=== PATIENT | male | born 1945 | race Caucasian/White ===

== ENCOUNTER 2018-08-13 09:34 | Outpatient (CLI) | payer OTHER, SELFPAY ==
--- NOTE | 2018-08-12 14:35 | DI.RAD_ITS ---
SYMPTOMS/DIAGNOSIS: COUGH, R05 CHEST X-RAY, PA AND LATERAL: Comparison is 03/01/18. The heart is normal in size. The lungs are clear. The mediastinal structures and pleura appear intact. IMPRESSION: Normal chest.
== END 2018-08-13 09:54 ==
PROVIDERS: PCP Internal Medicine; Visit Provider Nurse Practitioner
DX: R05 Cough (principal)
CPT/HCPCS: 71046

== ENCOUNTER → 2018-09-30 08:49 | Outpatient (BNVA) | payer OTHER, SELFPAY | PROVIDERS: PCP Internal Medicine; Visit Provider Orthopaedic Surgery | DX: M17.0 Bilateral primary osteoarthritis of knee (principal); I87.2 Venous insufficiency (chronic) (peripheral) | CPT/HCPCS: 20610; 99211; 99213; J1040 ==

== ENCOUNTER → 2019-01-06 08:45 | Outpatient (BNVA) | payer OTHER, SELFPAY | PROVIDERS: PCP Internal Medicine; Referring Provider Internal Medicine; Visit Provider Orthopaedic Surgery | DX: M17.11 Unilateral primary osteoarthritis, right knee (principal); M17.12 Unilateral primary osteoarthritis, left knee | CPT/HCPCS: 20610; 99211; 99213; J1040 ==

== ENCOUNTER 2019-01-25 09:25 | Outpatient (REF) | payer OTHER, SELFPAY ==
[2019-01-25 12:52] LABS: Albumin 4.1 g/dL (3.4-5.0); Alkaline Phosphatase 142 U/L (46-116); Anion Gap 8.9 mmol/L (3-11); BUN 39 mg/dL (7-18); Bilirubin, Total 0.5 mg/dL (0.2-1.0); CO2 29.1 mmol/L (21.0-32.0); CREATININE 1.57 mg/dL (0.70-1.30); Calcium 9.4 mg/dL (8.5-10.1); Chloride 101 mmol/L (98-107); Estimated GFR 43.17 (mL/min/1.73m2); Potassium 4.7 mmol/L (3.5-5.1); Sodium 139 mmol/L (136-145); Total Protein 7.1 g/dL (6.4-8.2)
[2019-01-25 13:08] LABS: ALT 62 U/L (12-78); AST 54 U/L (15-37)
[2019-01-25 13:09] LABS: Glucose 144 mg/dL (70-100)
== END 2019-01-25 09:45 ==
LOC: NCHCN 09:25
PROVIDERS: PCP Internal Medicine; Visit Provider Internal Medicine
DX: E11.65 Type 2 diabetes mellitus with hyperglycemia (principal); I10 Essential (primary) hypertension; N18.3 Chronic kidney disease, stage 3 (moderate); I25.10 Atherosclerotic heart disease of native coronary artery without angina pectoris
CPT/HCPCS: 80053

== ENCOUNTER → 2019-04-12 08:41 | Outpatient (BNVA) | payer OTHER, SELFPAY | PROVIDERS: PCP Internal Medicine; Referring Provider Internal Medicine; Visit Provider Orthopaedic Surgery | DX: M17.11 Unilateral primary osteoarthritis, right knee (principal); M17.12 Unilateral primary osteoarthritis, left knee; M25.561 Pain in right knee; M25.562 Pain in left knee; M21.162 Varus deformity, not elsewhere classified, left knee; M21.161 Varus deformity, not elsewhere classified, right knee; I87.2 Venous insufficiency (chronic) (peripheral); E11.9 Type 2 diabetes mellitus without complications | CPT/HCPCS: 20610; 99211; 99212; J1040 ==

== ENCOUNTER → 2019-07-14 09:49 | Outpatient (BNVA) | payer OTHER, SELFPAY | PROVIDERS: PCP Internal Medicine; Referring Provider Internal Medicine; Visit Provider Orthopaedic Surgery | DX: M17.11 Unilateral primary osteoarthritis, right knee (principal); M17.12 Unilateral primary osteoarthritis, left knee; E11.9 Type 2 diabetes mellitus without complications; Z79.4 Long term (current) use of insulin; Z99.89 Dependence on other enabling machines and devices | CPT/HCPCS: 20610; 99211; 99213; J1040 ==

== ENCOUNTER → 2019-09-01 08:58 | Outpatient (REF) | payer OTHER, SELFPAY ==
[2019-09-01 11:03] LABS: HCT 44.1 % (40.0-50.0); HGB 14.8 g/dL (13.5-17.5); Mean Corp. HGB Concentration 33.6 g/dL (32.0-36.0); Mean Corpuscular Hemoglobin 29.8 pg (27.0-33.0); Mean Corpuscular Volume 88.7 fL (80-95); Platelet Count 126 x1000/uL (130-400); RBC 4.97 m/cumm (4.50-6.00); RBC Distribution Width 15.1 % (11.8-14.1); White Blood Cell Count 4.95 k/cumm (4.4-10.8)
[2019-09-01 11:21] LABS: NT-proBNP 112 pg/mL
[2019-09-02 11:44] LABS: Lyme Ab w Rflx to Lyme Confirm Positive
[2019-09-07 15:26] LABS: IgG Band(s) SEE COMMENTS kDa; IgG Immunoblot Negative; IgM Band(s) SEE COMMENTS kDa; IgM Immunoblot Negative; Immunoblot Interpretation SEE COMMENTS
== END ==
LOC: NCHCN 08:58
PROVIDERS: PCP Internal Medicine; Visit Provider Internal Medicine
DX: R06.09 Other forms of dyspnea (principal); M25.50 Pain in unspecified joint
CPT/HCPCS: 85027; 86617; 83880; 86618

== ENCOUNTER 2019-10-13 10:40 | Outpatient (CLI) | payer OTHER, SELFPAY ==
--- NOTE | 2019-10-13 10:13 | DI.RAD_ITS ---
EXAM: XR KNEE RT 2V AP,LAT, XR KNEE LT 2V AP, LAT, XR STANDING ALIGNMENT INDICATION: knee pain. COMPARISON: XR KNEE LT 2V AP,LAT from 10/13/2019 XR STANDING ALIGNMENT from 10/13/2019 TECHNIQUE: 2D digital imaging was performed. FINDINGS: The hip joint spaces are well maintained. There are severe degenerative changes of both medial femo ral tibial joints, greater on the left. There is bilateral varus angulation at the knees. There are mild degenerative changes of both ankles. Spurring is also seen at the patellofemoral joints. IMPRESSION: Severe degenerative changes of the medial femoral tibial joints of both knees, left greater than righ t.
== END 2019-10-13 11:00 ==
PROVIDERS: PCP Internal Medicine; Referring Provider Internal Medicine; Visit Provider Student in an Organized Health Care Education/Training Program
DX: M25.561 Pain in right knee (principal); M25.562 Pain in left knee; M17.0 Bilateral primary osteoarthritis of knee; M19.071 Primary osteoarthritis, right ankle and foot; M19.072 Primary osteoarthritis, left ankle and foot; E11.9 Type 2 diabetes mellitus without complications; Z79.4 Long term (current) use of insulin; G47.33 Obstructive sleep apnea (adult) (pediatric)
CPT/HCPCS: 99214; 73560; 77073

== ENCOUNTER 2019-11-21 12:08 | Outpatient (REF) | payer OTHER, SELFPAY ==
[2019-11-21 22:02] LABS: Anion Gap 11.2 mmol/L (3-11); BUN 32 mg/dL (7-18); CO2 26.8 mmol/L (21.0-32.0); CREATININE 1.23 mg/dL (0.70-1.30); Calcium 9.1 mg/dL (8.5-10.1); Chloride 102 mmol/L (98-107); Estimated GFR 57.21 (mL/min/1.73m2); Glucose 184 mg/dL (74-106); Potassium 4.2 mmol/L (3.5-5.1); Sodium 140 mmol/L (136-145)
[2019-11-22 09:32] LABS: Hemoglobin A1C 6.6 % (3.8-5.6)
== END 2019-11-21 12:28 ==
LOC: NCHCN 12:08
PROVIDERS: PCP Internal Medicine; Visit Provider Internal Medicine
DX: E11.9 Type 2 diabetes mellitus without complications (principal); I10 Essential (primary) hypertension; I25.10 Atherosclerotic heart disease of native coronary artery without angina pectoris; I87.2 Venous insufficiency (chronic) (peripheral); G47.30 Sleep apnea, unspecified; M17.0 Bilateral primary osteoarthritis of knee
CPT/HCPCS: 80048; 83036

== ENCOUNTER 2019-11-29 00:38 | Outpatient (CLI) | payer OTHER, SELFPAY ==
--- NOTE | 2019-11-29 10:17 | DI.NM_ITS ---
APPROVED REPORT Exam: Pharmacologic Patient Location: Out-Patient Room/Bed: Stress Nurse: Shayna Keith RN BMI: 41.93 Baseline Rhythm: Sinus rhythm. 1st degree AV block Indications: CAD. Cardiac stent x2 in 2013. Pre-op screening for planned left knee surgury with Dr. Cesia michelle on 12/14/19 Medical History Medical History: CAD s/p stent, Diabetes, HTN, Hyperlipidemia, Obesity Cardiac Medications: Aspirin, Losartan, Nitroglycerin Allergies: Amlodipine. Enalaprilate. Pravastatin. 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 Nuclear Acquisition: Rest Tc-99m/Stress Tc-99m 1 day Rest Isotope: Tc-99m Sestamibi. Dose: 15.2 Date: 11/29/2019 Injection Time: 0900 Stress Isotope: Tc-99m Sestamibi. Dose: 47.0 Date: 11/29/2019 Injection Time: 1025 HR Max Heart Rate (APMHR): 144 bpm Resting HR Supine: 70 bpm Target HR (85% APMHR): 122 bpm Max HR Achieved: 82 bpm % of APMHR: 56 Recovery HR: 81 bpm HR response to stress: Normal HR response to stress BP Resting BP Supine: 162/80 mmHg Max BP: 162/80 mmHg Recovery BP: 160/78 mmHg BP response to stress: Normal blood pressure response to stress. ECG Resting ECst degree AV block Stress ECst degree AV block ST Change: No siginificant ST segment changes Recovery ECst degree AV block Recovery ST Change: No significant ST segment changes Clinical Start time of Regadenoson test (time of injection): 1024 Stress Symptoms: No significant side effect from lexiscan injection Stress ECG Conclusion 1. There was no evidence of ischemia on this ECG portion of this exam. Protocol Used: Regadenoson Stress Test Summary STAGE HR BP Symptoms NOTES Supine 70 162/80 1 min post lexiscan injection 82 140/70 3 min post lexiscan injection 77 142/72 6 min post lexiscan injection 81 160/78 MPI Conclusion Ejection fraction with stress was 52%. There is no significant ischemia on the imaging portion of this exam. Radiologist Interpretation Radiologist agrees with Core Baker's Interpretation. Radiologist Interpretation by: Shaheed Ruiz MD Interpretation Date/Time: 12/01/2019 09:29:26
[2019-11-29] MEDS: Regadenoson 0.4 MG/5 ML SYR IVP (11:00)
== END 2019-11-29 00:58 ==
PROVIDERS: PCP Internal Medicine; Visit Provider Internal Medicine
DX: I25.10 Atherosclerotic heart disease of native coronary artery without angina pectoris (principal); Z95.5 Presence of coronary angioplasty implant and graft; I10 Essential (primary) hypertension; E11.9 Type 2 diabetes mellitus without complications; E78.5 Hyperlipidemia, unspecified; Z01.810 Encounter for preprocedural cardiovascular examination; Z87.891 Personal history of nicotine dependence; M25.562 Pain in left knee
CPT/HCPCS: 78452; 93016; 93018; 93017; J2785

== ENCOUNTER 2019-12-07 12:52 | Outpatient (CLI) | payer OTHER, SELFPAY ==
[2019-12-07 15:19] LABS: HCT 47.5 % (40.0-50.0); Mean Corp. HGB Concentration 33.7 g/dL (32.0-36.0); Mean Corpuscular Volume 86.2 fL (80-95); Platelet Count 139 x1000/uL (130-400); RBC 5.51 m/cumm (4.50-6.00); RBC Distribution Width 14.6 % (11.8-14.1); White Blood Cell Count 5.76 k/cumm (4.4-10.8)
[2019-12-07 15:39] LABS: Anion Gap 9.9 mmol/L (3-11); BUN 29 mg/dL (7-18); CO2 30.1 mmol/L (21.0-32.0); CREATININE 1.32 mg/dL (0.70-1.30); Calcium 9.4 mg/dL (8.5-10.1); Chloride 101 mmol/L (98-107); Estimated GFR 52.73 (mL/min/1.73m2); Glucose 138 mg/dL (74-106); Sodium 141 mmol/L (136-145)
== END 2019-12-07 13:12 ==
PROVIDERS: PCP Internal Medicine; Visit Provider Student in an Organized Health Care Education/Training Program
DX: M25.562 Pain in left knee (principal); M17.12 Unilateral primary osteoarthritis, left knee; Z01.818 Encounter for other preprocedural examination; Z01.812 Encounter for preprocedural laboratory examination
CPT/HCPCS: 36415; 80048; 85027

== ENCOUNTER → 2019-12-14 08:08 | Outpatient (BNVA) | payer OTHER, SELFPAY | PROVIDERS: PCP Internal Medicine; Referring Provider Internal Medicine; Visit Provider Student in an Organized Health Care Education/Training Program | DX: R69 Illness, unspecified (principal) ==

== ENCOUNTER 2019-12-14 10:17 | Inpatient (IN) | payer OTHER, SELFPAY ==
--- NOTE | 2019-12-07 19:42 | CMPROGNOTE_ITS ---
- If Service Date Differs Date of service: 12/07/19 Time of Service: 19:42 Care Management Progress Note CM was consulted to meet with Kurtis during his pre op appointment for his Left Knee Replacement scheduled with Dr. Wilson on 12/14/2019. His , Jessica was in the room with him, who was identified as his main support. He reported that they have an adult child and two adult grandchildren who are also supportive. 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 He stated that they live in a two story home in [place], but everything is on one story that they need. There is a ramp in place to get into the home as well. Kurtis reported that he will have use of a FWW post surgically. CM advised that Jessica bring in the FWW to be evaluated by PT prior to Kurtis's discharge. Kurtis is independent at baseline. His will transport him to and from the hospital via private vehicle. Kurtis's PCP is Dr. Camejo, and he has [facility] for insurance. He does not currently have services, but may be interested in MOW from the [facility] for a short time after his surgery. Kurtis has his AD on file, and Jessica is listed as his agent. He was interested in signing up for the Portal. CM sent initial email to enroll him. Kurtis asked what he should bring to wear after surgery, which CM advised that he bring lose fitting clothing, such as sweatpants. CM will continue to follow and support discharge planning with Kurtis post surgically.
[2019-12-14] VITALS (11 sets, daily range): BP systolic 143–169; BP diastolic 63–85; PULSE 56–71; RESP 12–20; TEMP 36.2–36.8; O2SAT 96–100
--- NOTE | 2019-12-14 10:47 | HOME_ITS ---
Home Ventilator Equipment Home care company [employer] Reason: Obstructive Sleep Apnea Make: Respironics Model: REMStar Mask type: Face mask Mask size: Medium Mode: CPAP Settings: 15 Oxygen bleed in (lpm): 0 Condition: Fair Date last checked: 12/14/19 Year of last sleep study: Compliance Daily Comments: Mask should be replaced
[2019-12-14] MEDS: Lactated Ringers 1,000 ML 80 ML IV ×2 (11:07→16:13)
[2019-12-14] MEDS: Celecoxib 200 MG CAP 400 MG PO (11:09)
[2019-12-14] MEDS: Acetaminophen 500 MG TAB 1000 MG PO ×2 (11:09→19:57)
[2019-12-14] MEDS: Gabapentin 300 MG CAP PO ×2 (11:10→19:58)
[2019-12-14] MEDS: Bupivacaine 0.25% Pres-Free 30 ML VIAL ×2 (12:08→14:28)
--- NOTE | 2019-12-14 12:31 | W.PREOPHP ---
Date of service: 12/14/19 Time of Service: 11:31 Assessment and Plan Assessment and plan (1) Primary osteoarthritis of both knees: Status: Chronic Assessment and plan: Kurtis has severe osteoarthritis of both knees. I have discussed the treatments with Kutris and he desires to have knee replacements. He has been cleared by Dr. Camejo. I reviewed the risks to include bleeding, infection, pain, stiffness, laxity, damage to nerves and vessels, damage to muscles and tendons, loosening, need for repeat surgery, blood clot and cardiopulmonary demise. After discussing these risks, he elects to proceed. History of Present Illness History of Present Illness Chief Complaint: Bilateral Knee Pain Narrative: Kurtis is a 74yo with bilateral knee arthritis. He reports pain in both knees. His health has been stable but continues to be limited by bilateral knee pain. He has seen Dr. Camejo and has been cleared for surgery. Recent stress test showed an EF of 50% with no signs of ischemia. Review of Systems All systems reviewed & are unremarkable except as noted in HPI and below PFSH Medical History Arthritis (Acute) CAD (coronary artery disease) (Chronic) Cellulitis (Acute) RIGHT LOWER LEG Diabetes (Chronic) History of seizures as a child (Acute) Hx of myocardial infarction (Acute) 10/2011 STRESS TEST COMPLETED 11/29/2019 Hyperlipidemia (Acute) Hypertension (Chronic) Renal insufficiency (Chronic) Surgical History colonoscopy (09/02/16) H/O heart artery stent (Chronic) X2 2014 History of tonsillectomy and adenoidectomy (Acute) Family History Maternal Aunt Colon cancer Maternal Aunt Colon cancer Social History Smoking/Tobacco Use Status: Former Tobacco Use Alcohol Intake: never Drug use: Never Substance use type: does not use Do you feel safe in your relationship?: Yes Additional Social history: SPOUSE IN ROOM Meds Home Medications and Allergies Home Medications Medication Instructions Recorded Confirmed Type losartan [Cozaar] 100 mg PO DAILY 11/01/13 12/14/19 History nitroglycerin [Nitrostat] 0.4 mg SUBLINGUAL Q5 MIN PRN X3 11/01/13 12/07/19 Rx PRN #15 tab aspirin [Aspir-81] 1 tab PO DAILY 06/11/14 12/14/19 History carvedilol 25 mg PO BID tab-cap 12/18/14 12/14/19 History gabapentin 300 mg PO BID tab-cap 12/18/14 12/14/19 History hydrochlorothiazide 50 mg PO DAILY tab-cap 12/18/14 12/14/19 History magnesium oxide 400 mg PO BID 12/18/14 12/14/19 History Lantus Solostar U-100 Insulin 80 units SUB-Q HS 09/01/16 12/14/19 History insulin lispro [Humalog KwikPen unit SQ .SLIDING SCALE 09/01/16 10/13/19 History Insulin] acetaminophen [Mapap Extra 1,500 mg PO PRN PRN 09/02/16 12/14/19 History Strength] Jardiance 25 mg PO DAILY 05/22/18 12/14/19 History doxazosin 4 mg PO HS 12/07/19 12/14/19 History Allergies Allergy/AdvReac Type Severity Reaction Status Date / Time amlodipine besylate AdvReac Mild edema Unverified 12/14/19 10:57 [From Norvasc] enalapril maleate AdvReac Mild cough Unverified 12/14/19 10:57 [From Vasotec] enalaprilat dihydrate AdvReac Mild cough Unverified 12/14/19 10:57 [From Vasotec] pravastatin sodium AdvReac Mild myalgia Unverified 12/14/19 10:57 [From Pravachol] rosuvastatin [From Crestor] AdvReac Mild Other (See Unverified 12/14/19 10:57 Comment) Exam Const General: cooperative, healthy appearing, comfortable and no acute distress Nutritional Appearance: obese Orientation: alert, awake and oriented x3 Results Last Vital Signs Temp 36.2 C L 12/14/19 10:57 Pulse 71 12/14/19 10:57 Resp 16 12/14/19 10:57 BP 158/85 H 12/14/19 10:57 Pulse Ox 98 12/14/19 10:57
[2019-12-14] MEDS: ceFAZolin 3,000 MG in Normal Saline 100 ML 200 MG IVPB (12:36)
[2019-12-14] MEDS: Bupivacaine LIPOSOME/PF 133 MG/10 ML VIAL IJ (14:28)
[2019-12-14] MEDS: Ketorolac 30 MG/ML VIAL (14:28)
[2019-12-14] MEDS: Normal Saline 20 ML VIAL ×2 (14:28→18:35)
[2019-12-14] MEDS: oxyCODONE 5 MG TAB PO (18:32)
[2019-12-14] MEDS: Magnesium Oxide 400 MG TAB PO (19:57)
[2019-12-14] MEDS: Carvedilol 12.5 MG TAB 25 MG PO (19:58)
[2019-12-14] MEDS: Aspirin E.C. 81 MG TABEC PO (19:58)
[2019-12-14] MEDS: ceFAZolin 1 GM/50 ML BAG IVPB (19:58)
[2019-12-14] MEDS: Naproxen 375 MG TAB PO (20:58)
--- NOTE | 2019-12-14 21:01 | ROE_ITS ---
Date of service: 12/14/19 Time of Service: 16:02 Operative Note Operative Note DATE OF PROCEDURE: 12/14/19 PRE-OP DIAGNOSIS: Left Knee Arthritis POST-OP DIAGNOSIS: same PROCEDURE: Left Total Knee Arthroplasty with Intraoperative Navigation SURGEON: Yrn Wilson TAKE DOWN INSPECTOR: Gela Choi ANESTHESIA: GETA and regional ESTIMATED BLOOD LOSS: 500 PATHOLOGY: none sent TOURNIQUET TIME: 35 COMPLICATIONS: None Patient was transported to: PACU Patient's condition: stable Implants: 1. Depuy Attune Posterior Stabilized Femoral Component, Size 7 2. Depuy Attune Fixed Platform Tibial Component, Size 7 3. Depuy Attune 7x7 Fixed, Stabilized Poly 4. Depuy Attune Patellar Component, Size 38mm Indications: I have seen Kurtis in clinic for symptoms of knee arthritis, confirmed with radiographic findings. Kurtis has exhausted nonoperative methods and was having significant limitations in daily function and desired better function and less pain. I discussed the technical details of a knee replacement. I explained the risks of the procedure to include, but not limited to, bleeding, infection, pain, stiffness, fracture, damage to nerves and vessels, damage to muscles and tendons, loosening, need for repeat procedure, blood clot and cardiopulmonary demise. Despite these risks, Kurtis elected to proceed. Findings: There was significant signs of arthritis throughout the knee involving all 3 compartments. Procedure Description: Kurtis was greeted in the preoperative holding area where the correct side was identified and marked. The consent was reviewed with the patient and signed. The history and physical was updated. All questions were answered. Preoperative mediacations were administered: Acetaminophen 1000mg, Celebrex 400mg, and Gabapentin 300mg. An adductor canal block was then administered by the anesthesia team in the PACU. Kurtis was taken back to the operating room. A spinal anesthestic was then attempted but was unsuccessful, therefore he was transitioned to a general anesthetic. The patient was placed into the supine position on the operating room table. A nonsterile tourniquet was placed high onto the leg but only used for cementing. Posts were placed for positioning during the procedure. All bony prominences were well padded. Prophylactic antibiotics in the form of Cefazolin were administered. 1g of Tranxemic Acid was given intravenously within 30 minutes of incision. The left leg was then prepped with Chloraprep and draped in a standard fashion with impervious stockinette and extremity drape with Iodine impregnated skin protection. A timeout to confirm correct identity, side and site, procedure, allergies, anesthesia, and medical concerns was performed. With the knee in some flexion, a midline incision was made overlying the knee. Full thickness skin flaps were raised once the extensor mechanism was encountered. These were raised medially and laterally. Any bleeding was controlled with electrocautery. Once the extensor mechanism was fully exposed, a medial parapatellar arthrotomy was performed in a flexed position. All bleeding from the arthrotomy and the geniculate arteries was coagulated. A medial subperiosteal peel was performed with electrocautery to the midcoronal plane. Due to the significant varus deformity the entire medial tibial plateau was exposed. The fat pad was removed while keeping the patellar tendon protected. The anterior distal femur synovium was removed for later visualization. The ACL and PCL were resected and the anterior horn of the lateral meniscus was transected. The knee was then flexed with the patella everted. Large osteophytes from the tibia were removed. Large osteophytes from the femur were removed. A single starting pin was then placed 1cm anterior to the PCL insertion and the notch in the direction of the femoral head. The OrthoAlign device was applied over the pin. It was oriented to be in line with the epicondylar axis and the trochlear groove. It was then pinned into place. The navigation computer was then turned on and calibrated. The distal femur cut was set at 0 degrees varus/valgus and 2.5 degrees flexion. The distal femur cutting guide then was positioned for a 11mm cut. The distal femur was cut with an oscillating saw while protecting the soft tissues. The tibia was then addressed. The OrthoAlign device was placed over the tibial tubercle and medial tibia and secured into position. Once again, OrthoAlign was calibrated and then set for a 0 degree varus/valgus cut and 3 degrees of posterior slope. With this locked into position, the cut thickness stylus was used to assess cut thickness. The medial side, most involved side, was set for a 4mm cut. This was then held in position and pinned into place with 2 additional pins and a cross pin for stability. The medial and lateral collateral ligaments were protected and the cut was performed. With this completed, it was assessed and noted to be of appropriate dimensions. The guide and OrthoAlign was removed. A spacer block was inserted and the knee was brought into extension. The 7mm spacer block provided full extension, without hyperextension and with stability of both the medial and lateral collateral ligaments was assessed. The pins from the femur and the tibia were then removed. The distal femur was then sized. The anterior stylus was placed onto the lateral ridge of the anterior femur. This indicated a size 7 femur. The external rotation of the guide was adjusted to 3 degrees to match the epicondylar axis, perpendicular to Tipton?s line. The 4-in-1 cutting guide was the placed. The posterior medial femur cut was evaluated and appeared of good thickness. The spacer block was inserted underneath the cutting guide and stability was confirmed in 90 degrees of flexion. An rocio wing was used to confirm appropriate position of the anterior cut to avoid notching. This cutting guide was ensured to be flush on the cut surface and then pinned into place with headed pins. While protecting the soft tissues, quad tendon, and collateral ligaments, the anterior and posterior cuts were performed with a saw. The central two pins were removed and the posterior and anterior chamfers were cut next. The notch-cutting guide was placed. This was pinned to lateralize the femoral component as much as possible while keeping it flush on the cut surface. This was then pinned into position. A reciprocating saw was used to make the notch cut. A rasp smoothed the cut surfaces. A trial posterior stabilized femoral component was then inserted, impacted down to the cut surfaces, and the lug holes were drilled. A provisional trial tibial component was placed and the knee was brought through range of motion. There was noted to be excellent extension and flexion. There was no significant instability. The patella was tracking without thumbs. The tibial cut surface was fully exposed. The medial and lateral menisci were removed. The tibia was then sized as a 7. The tibia had been previously marked during trialing to correspond to the center of the tibial component to help with rotation. The trial was aligned to this ruddy, approximately rotated to the medial 1/3rd of the tibial tubercle. The trial was pinned into place. The tibia was prepared with a reamer and a keel punch. The knee was then brought into extension and the patella was measured as 25mm. Using the patellar clamp and cut guide, this was resected to a flat surface with at least 13mm of thickness remaining. The size 38 patella fit the best. This was oriented and then clamped into position. The lugs were drilled. The trial components were removed. The final components, except for the polyethylene were opened on the back table. The periosteal and capsular tissues, especially posteriorly, around the knee were then systematically injected with a periarticular cocktail consisting of 50cc 0.25% Marcaine, 30mg Ketorolac, 20cc of Exparal and 50cc of injectable saline. The tourniquet was then inflated to 275mmHg. The knee was thoroughly irrigated with a pulse lavage and dried. On the back table, with the implants opened, the cement was mixed. 2 batches of antibiotic laden cement were prepared with vacuum assistance. After the cement was ready a small amount was placed on to the back side of the tibial component at the keel. A small amount was placed onto the posterior flange of the femur. Cement was manual pressurized and impregnated into the cut surface of the tibia. The tibial component was then inserted into the cut surface and impacted into position. Excess cement was removed and the component was reimpacted. Again, excess cement was removed and our attention was then turned to the femur. The femoral cut surface was once again dried and cement was manually impacted into the cut surface. The femoral component was lined with the lug holes and impacted. Excess cement was removed. It was ensured to be down against the cut surface. The trial polyethylene was then inserted and the leg was brought out into full extension for the duration of the cement curing process, approximately 15min. Cement was lastly manually impacted into the cut surface of the patella and the patellar button was clamped into position and held. During this process attention was turned to the gutters of the knee and for all interfaces for any excess cement. The knee was irrigated with Irrisept chlorhexadine solution. After the cement had finally cured, approximately 15min, the clamp was removed from the patella and the knee was taken through range of motion. A size 7mm polyethylene component provided the best range of motion and stability with less than 2mm gapping with medial and lateral stress and full extension without significant hyperextension. The patella was tracking with a no-thumbs technique. The trial poly was removed and once again the knee was checked for any loose, excess, or errant cement. The poly component was then inserted and impacted into position after cleaning and drying the tibial tray. The capsule was then reapproximated with a No. 1 Vicryl at multiple locations. The capsule was finally closed with a No. 2 Stratafix, barbed suture. The tourniquet was then released and the arthrotomy appeared watertight without significant bleeding. The second dosing of 1g TXA was started. Deep tissues were then reapproximated with 0 Vicryl and 2-0 Vicryl. The skin was closed with a running 3-0 Monocryl in a subcuticular fashion. This was reinforced with skin glue. A Mepilex silver dressing was applied along with a [id number] ED wrap. A CryoCuff was applied. Kurtis was transferred to the hospital bed without difficulty an suffering no apparent complication. Kurtis has a good prognosis. Physical therapy will start today and without restrictions, weight-bearing as tolerated. Aspirin 81mg BID will be used for DVT prophylaxis.
[2019-12-14] MEDS: Insulin Glargine 300 UNITS/3 ML PEN 80 UNITS SC (22:19)
[2019-12-14] MEDS: Doxazosin 2 MG TAB 4 MG PO (22:21)
[2019-12-15] MEDS: oxyCODONE 5 MG TAB PO ×5 (02:57→22:36)
[2019-12-15] MEDS: Lactated Ringers 1,000 ML 80 ML IV (02:58)
[2019-12-15 03:33] VITALS: BP 138/70; PULSE 74; RESP 20; TEMP 36.7; O2SAT 95
[2019-12-15] MEDS: ceFAZolin 1 GM/50 ML BAG IVPB ×2 (03:37→11:50)
[2019-12-15 07:22] VITALS: BP 158/67; PULSE 76; RESP 19; TEMP 36.8; O2SAT 94
[2019-12-15] MEDS: Aspirin E.C. 81 MG TABEC PO ×2 (08:10→20:12)
[2019-12-15] MEDS: Acetaminophen 500 MG TAB 1000 MG PO ×3 (08:10→20:14)
[2019-12-15] MEDS: Naproxen 375 MG TAB PO ×2 (08:10→20:15)
[2019-12-15] MEDS: hydroCHLOROthiazide 25 MG TAB 50 MG PO (08:10)
[2019-12-15] MEDS: Losartan 50 MG TAB 100 MG PO (08:10)
[2019-12-15] MEDS: Magnesium Oxide 400 MG TAB PO ×2 (08:11→20:15)
[2019-12-15] MEDS: Carvedilol 12.5 MG TAB 25 MG PO ×2 (08:11→20:14)
[2019-12-15] MEDS: Gabapentin 300 MG CAP PO ×2 (08:12→20:15)
[2019-12-15] MEDS: Pantoprazole 40 MG TABCR PO (08:12)
[2019-12-15] MEDS: Insulin Aspart 300 UNITS/3 ML PEN SC ×4 (08:13→11:49)
[2019-12-15] MEDS: Normal Saline 1,000 ML 1000 ML IV (08:15)
[2019-12-15 11:28] VITALS: BP 140/54; PULSE 71; RESP 20; TEMP 36.7; O2SAT 94
[2019-12-15] MEDS: Normal Saline Flush 10 ML SYR IV (11:50)
--- NOTE | 2019-12-15 13:14 | PT.INIE ---
Date of service: 12/15/19 Time of Service: 13:14 PT Notes Visit Reasons: (L) KNEE DJD Physical Therapy Inpatient Initial Evaluation Date: 12/15/2019 Referring Doctor: Yrn Wilson M.D. PT Orders: PT CONSULT: s/p ortho surgery Precautions: Fall. Standard. Activity as tolerated. Patient Profile/Admitting Diagnosis: Pt is a 74-year-old male with history of bilateral knee OA presenting s/p L TKA with intraoperative navigation on post-operative day one. PMHX: Medical History Arthritis (Acute) CAD (coronary artery disease) (Chronic) Cellulitis (Acute) RIGHT LOWER LEG Diabetes (Chronic) History of seizures as a child (Acute) Hx of myocardial infarction (Acute) 10/2011 STRESS TEST COMPLETED 11/29/2019 Hyperlipidemia (Acute) Hypertension (Chronic) Renal insufficiency (Chronic) Surgical History colonoscopy (09/02/16) H/O heart artery stent (Chronic) X2 2014 History of tonsillectomy and adenoidectomy (Acute) Social History/Home Situation: Pt lives in [place] with his . Notes there is a ramp to the front door and no stairs in the home. 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 Equipment Owned/DME: Cane and crutches. Subjective: Pt notes that he does not have pain unless bending or extending the knee. He notes that he often experiences back pain with ambulating, but has not experienced any pain since here in the hospital. Objective: General Observation: IV line in R UE, not attached to IV pump. Mental Status: alert and oriented x4 Pain: 3/10 Vital Signs: SpO2 97% on RA with ambulation ROM: Right Upper Extremity: Shoulder Flexion WFL. Shoulder abduction WFL. Elbow flexion WFL. Wrist flexion WFL. Opening and closing of hand WFL. Left Upper Extremity: Shoulder Flexion WFL. Shoulder abduction WFL. Elbow flexion WFL. Wrist flexion WFL. Opening and closing of hand WFL. Right Lower Extremity: Hip flexion WFL. Hip abduction WFL. Knee flexion WFL. Ankle dorsiflexion WFL. Ankle plantarflexion WFL. Left Lower Extremity: Hip flexion WFL. Hip abduction WFL. Knee flexion 95 degrees. Knee extension 25 degrees. Ankle dorsiflexion WFL. Ankle plantarflexion WFL. Strength: Right Upper Extremity: Shoulder flexors 5/5. Shoulder abductors 5/5. Elbow flexors 5/5. Elbow extensors 5/5. Manager Registration strong. Left Upper Extremity: Shoulder flexors 5/5. Shoulder abductors 5/5. Elbow flexors 5/5. Elbow extensors 5/5. Manager Registration strong. Right Lower Extremity: Hip flexors 5/5. Hip abductors 5/5. Knee flexors 5/5. Knee extensors 5/5. Ankle dorsiflexors 4-/5. Ankle plantarflexors 5/5. Left Lower Extremity: Hip flexors 3-/5. Hip abductors 5/5. Knee flexors 3-/5. Knee extensors 3-/5. Ankle dorsiflexors 5/5. Ankle plantarflexors 5/5. Sensation: Intact as to pain and pressure on bilateral lower extremities. Bed Mobility/Transfers: Rolling NT Supine to sit NT Sit to supine NT Sit to stand SBA Stand to sit SBA Bed to chair SBA Chair to bed SBA Gait: Pt was able to ambulate 120 feet WBAT on L LE using a front-wheeled walker. Step through gait pattern with decreased step height and length. Foot flat contact on L LE and forefoot contact on the L LE observed. Pt experienced one LOB without a fall. Denies increases in pain, chest pain, nausea, dizziness, or back pain. SBA by PT with wheelchair follow by PT student. Balance: Static Sitting: Normal Dynamic Sitting: Normal Static Standing: Good Dynamic Standing: Fair Special Tests: Mobility Limitations Standardized Measure [facility] AM-PAC 6 clicks Basic Mobility Inpatient Short Form: Raw Score: 24 CMS Score: 0% deficit Informed Consent/Education: Patient instructed in purpose of PT consult and plan of care. HEP including glute sets, quadriceps sets, and ankle pumps. Assessment: Pt is a 74-year-old male with history of bilateral knee OA presenting s/p TKA intraoperative navigation on post-operative day one. He presents on initial evaluation with impairment level findings and functional deficits listed below. Pt would continue to benefit from skilled physical therapy at this time for improved functional mobility. Patient presents with clinical signs and symptoms consistent with current/admitting diagnoses that have resulted to mobility limitations, gait instability and generalized weakness demonstrated by the following impairment level findings: 1. Decreased strength to LLE hip and knee major muscle groups 2. Impaired standing balance 3. Impaired activity tolerance 4. Limitation of joint range of motion in L knee Impairments are contributing to the following functional limitations: 1. Increased dependence with transfers 2. Inability to safely ambulate without assistive device and physical assistance 3. Increase completion time for mobility ADL performance 4. Increased fall risk 5. Inability to negotiate steps alone safely Patient is assessed as a 71080 moderate complexity based on the following: History: Pt is a 74-year-old male with history of bilateral knee OA presenting s/p TKA intraoperative navigation on post-operative day one. He presents on initial evaluation with impairment level findings and functional deficits listed below Examination: Demonstrable impairment in strength, balance, and range of motion with underlying impairments and functional limitations as documented above Presentation: Evolving Decision Makin moderate complexity Goals: Goals X1 week 1. Sit-Stand independent 2. Stand-Sit independent 3. Bed-Chair independent 4. Chair-Bed independent 5. Independent gait on level surface with use of least restrictive device for at least 300 feet without report of pain nor dyspnea 6. Independent stair negotiation while holding onto bilateral rails for at least 5 steps without report of pain nor dyspnea 7. Independent with home exercise program 8. Good static and dynamic standing balance/tolerance Plan of Care/Treatment Plan: 1-2x/day, 7 days/week x 1 week. Plan of care has been reviewed with the DIRECTOR OF OCCUPATIONAL HEALTH providing the service under Physical Therapy direction. Initiate Physical Therapy intervention for strengthening, bed mobility, transfers, gait, stairs, balance training, use of assistive device. DISCHARGE RECOMMENDATIONS: Pt is to be discharged to home with a front-wheeled walker once medically cleared. TREATMENT CODE/TIME: 68154 x 31 minute beginning at 13:14 P.M. Thank you very much for this referral. Bert Vazquez, CARA Doctor of Physical Therapy Student [facility] Supervision provided by Nargis Bernabe PT, DPT, CLT [facility] [place], [place]
--- NOTE | 2019-12-15 14:33 | CHAPLAIN ---
Kurtis told me about his knee surgery yesterday. He said his profession has been rough on his body and he waited as long as possible to have his knee replaced. He is a member [facility] [employer] and the rastafarian knows he is here. His sister in law is Keyanna Alanis, an [facility] [employer].
--- NOTE | 2019-12-15 14:50 | PDOC.CMIN ---
Care Management Initial Assess REASON FOR HOSPITALIZATION:: (L) Knee DJD PAST MEDICAL HISTORY/PAST SURGICAL HISTORY:: Arthritis, CAD, Cellulitis, Diabetes, hx of seizures in childhood, [place] 2010, hyperlipidemia, hypertension, renal insufficiency, colonoscopy, hx of tonsillectomy and adenoidectomy PREVIOUS FUNCTIONAL STATUS/SOCIAL/FAMILY SUPPORTS:: Kurtis resides in [place] with his , Jessica. Their daughter, Amrita and grandchildren also reside in [place]. 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 He is independent at baseline with supportive family and friends. CURRENT FUNCTIONAL STATUS:: Kurtis was lying in bed. He reported he was having increased pain and requested this specifications writer notify the RN. CM notified RN. Kurtis shared that his daughter had brought his FWW in yesterday, though the walker in the room was labeled from PT. ADVANCE DIRECTIVES:: On file at [facility]; Jessica as agent. Has patient been provided with information about the portal?: Yes Did the patient sign up for the portal?: Yes (Previously) CODE STATUS:: DNR/DNI INSURANCE COVERAGE / FINANCIAL ISSUES:: [facility] CURRENT HOME/COMMUNITY SERVICES/EQUIPMENT:: No current services or equipment. Borrowing a FWW for recovery. PRIMARY CARE PHYSICIAN:: Patrice Camejo POTENTIAL DISCHARGE NEEDS:: PT evaluation, follow up appointments. PATIENT/FAMILY EDUCATION NEEDS:: Review discharge instructions, discuss Ask Me Three. ANTICIPATED BARRIERS TO DISCHARGE:: None identified at this time. TRANSPORTATION:: Via private vehicle with his . PLAN:: Kurtis will return home when ready per MD. He will follow up with Dr. Wilson and his plan of care as prescribed including activity restriction and medication recommendations. He will transport via vehicle with his , Jessica.
[2019-12-15 16:21] VITALS: BP 141/56; PULSE 74; RESP 20; TEMP 37.1; O2SAT 97
[2019-12-15 20:24] VITALS: BP 164/70; PULSE 70; RESP 20; TEMP 37; O2SAT 96
[2019-12-15] MEDS: Insulin Glargine 300 UNITS/3 ML PEN 80 UNITS SC (21:28)
[2019-12-15] MEDS: Doxazosin 2 MG TAB 4 MG PO (21:28)
--- NOTE | 2019-12-15 22:12 | W.PM.PROGNOT ---
Date of Service Date of service: 12/15/19 Time of Service: 13:13 Assessment and Plan Assessment and plan (1) Primary osteoarthritis of both knees: Status: Chronic Assessment and plan: Kurtis is a 74-year-old status post left knee replacement. He is doing well. He has had good pain control. We will continue with physical therapy with likely discharge home tomorrow. Continue aspirin for blood clot prevention. Subjective Subjective Interval history since last seen: Kurtis is doing well status post left knee replacement. He reports good pain control. He has been able to get out of bed and walked some. He does report some stiffness. No fevers or chills. Exam Narrative Exam Narrative: Dressing is clean dry and intact. Active straight leg raise. Sensation intact light touch over the deep and superficial peroneal nerves and tibial nerve. Range of motion approximately 10 to 70 degrees. Objective Objective Clinical Data: Vital Signs Temperature 37.0 C 12/15/19 20:24 Temperature Source Tympanic 12/15/19 20:24 Pulse 70 12/15/19 20:24 Pulse Rhythm Regular 12/15/19 20:16 Respiratory Rate 20 12/15/19 20:24 Respiratory Effort Non-Labored 12/15/19 20:16 Respiratory Depth Normal 12/15/19 20:16 Respiratory Pattern Normal 12/15/19 20:16 Blood Pressure 164/70 H 12/15/19 20:24 Pulse Oximetry 96 12/15/19 20:24 Respiratory End-tidal CO2 30 12/14/19 16:10 Oxygen Delivery Method Room Air 12/15/19 20:24 Oxygen Flow Rate 0 12/15/19 20:24 Fraction of Inspired Oxygen (FIO2) 21 12/15/19 14:53 Pain Level 0 12/15/19 20:24 Intake & Output 12/14/19 12/15/19 12/15/19 23:59 11:59 23:59 Intake Total 1015.333 / 9923.372 5861.667 / 2315.334 642.667 / 2315.334 Output Total 1250 / 1250 1000 / 1500 500 / 1500 Balance -234.667 / -234.667 672.667 / 815.334 142.667 / 815.334 Weight 128.82 kg Intake: IV 1015.333 / 3588.495 8752.667 / 1715.334 402.667 / 1715.334 Oral 360 / 600 240 / 600 Output: Urine 750 / 750 1000 / 1500 500 / 1500 Estimated Blood Loss 500 / 500 Other: Urine Color Yellow Yellow Light Carla Urine Appearance Clear Clear Clear Urine Odor None Normal Comment barraza D/C by previous nurse Emesis Description None Voiding Methods Urinal Urinal
[2019-12-15 23:40] VITALS: BP 165/51; PULSE 73; RESP 18; TEMP 36.7; O2SAT 94
[2019-12-16 04:14] VITALS: BP 162/57; PULSE 72; RESP 16; TEMP 36.8; O2SAT 95
--- NOTE | 2019-12-16 05:55 | W.PM.DS.N ---
Date of service: 12/16/19 Time of Service: 12:12 DS: Diagnosis Discharge Diagnosis (1) Primary osteoarthritis of both knees: Status: Chronic Discharge Plan Disposition Patient Disposition: HOME W/HOME HEALTH SERVICE Condition: Good Discharge Details Reason For Visit: (L) KNEE DJD Admit Date/Time: 12/14/19 10:17 Admit Provider: Yrn Wilson Attending Provider: Yrn Wilson Primary Care Provider: Patrice Camejo Hospital Course Hospital Course: Patient was admitted to the medical/surgical floor following the procedure. It was tolerated well without any notable medical, surgical, or anesthetic complications. Mobilization began postoperatively. The barraza catheter was removed and voiding spontaneously. Vitals were stable. Physical therapy worked with the patient and was cleared for discharge home. No acute medical issues. Home Meds and New Rx's Prescriptions: New naproxen 375 mg Tablet 375 mg PO BID Qty: 60 RF: 3 acetaminophen 500 mg tablet 1,000 mg PO Q8H PRN (Reason: pain) Qty: 90 RF: 3 pantoprazole 40 mg tablet,delayed release (DR/EC) 40 mg PO DAILY Qty: 30 RF: 0 oxycodone 5 mg tablet 5 mg PO Q4H Qty: 15 RF: 0 Continued carvedilol 12.5 MG tablet 25 mg PO BID RF: 0 hydrochlorothiazide 50 MG tablet 50 mg PO DAILY RF: 0 magnesium oxide 400 MG tablet 400 mg PO BID RF: 0 gabapentin 300 MG capsule 300 mg PO BID RF: 0 losartan [Cozaar] 100 MG tablet 100 mg PO DAILY RF: 0 nitroglycerin [Nitrostat] 0.4 MG tablet, sublingual 0.4 mg Sublingual Q5 MIN PRN X3 PRNQty: 15 RF: 0 insulin lispro [Humalog KwikPen Insulin] 100 UNIT/ML insulin pen SQ .SLIDING SCALE RF: 0 Lantus Solostar U-100 Insulin 300 UNITS/3 ML insulin pen 80 units Sub-Q HS RF: 0 Jardiance 10 MG tablet 25 mg PO DAILY RF: 0 doxazosin 4 mg Tablet 4 mg PO HS RF: 0 Changed aspirin [Aspir-81] 81 MG tablet,delayed release (DR/EC) 1 tab PO BID Qty: 60 RF: 0 Discontinued acetaminophen [Mapap Extra Strength] 500 MG tablet 1,500 mg PO PRN PRN (Reason: Pain) RF: 0 Discharge Instructions Additional Instructions: Dr. Wilson?s Total Knee Discharge Instructions Activity: The most important activity is to walk. You should try to take short walks a few times a day. It is important that when resting you work on keeping the knee straight. Avoid putting a pillow behind the knee as this will encourage flexion. Work on range of motion exercises as provided by Physical Therapy. - Start outpatient physical therapy within 2 weeks. - You should wear the VERENICE hose on both legs for 2 weeks. Dressing: Keep the surgical dressing in place for at least one week. After the first week it may be removed and replace with light gauze and tape or nothing. It may get wet after 3 days but avoid soaking the dressing. If it gets wet, just lightly pat dry. Medications: - You should take Tylenol (1000mg three times a day) and anti-inflammatory Naproxen (375mg twice a day) as your primary pain control medications - You have been prescribed a stronger pain medication Oxycodone for breakthrough pain, take as needed as prescribed. - You have also been prescribed a stomach acid reduction agent Pantoprozole to help reduce stomach acid and reflux. - You will be taking Aspirin 81mg twice a day for DVT prevention unless instructed otherwise. - If you have constipation you should take Colace or Miralax (both [id number]). It takes most people 3-4 days to have a bowel movement. Follow-up: 2 weeks 1. Encounter Date and Reason I certify that HILDA ZIMMERMAN was seen by Yrn Wilson MD on 12/16/19 and that I had a [id number] encounter with this patient that meets the physician face to face encounter requirements. 2. Clinical Findings Supporting Skilled Need and Homebound Status I certify that home health services are medically necessary, include either intermittent fpc and/or physical/speech therapy, and that this patient is homebound in that absences from the home require considerable and taxing effort and are infrequent or of short duration, or are attributable to the need to receive medical care. [X] (a) Attached documentation from encounter provides clinical findings supporting skilled need and homebound status (including what assistance patient requires to leave the home). The encounter with the patient was in whole, or in part, for the following medical condition, which is the primary reason for home health care: (L) KNEE DJD [facility]: Physical Therapy: Hilda would benefit from physical therapy following knee replacement. He has limitations in strength, stamina, motion, ambulation. His therapy should focus on ambulatory improvement, ADLs, and range of motion. Speech Therapy: Homebound: Hilda is homeboud due to weakness. He has notable gait alterations and is unable to leave his home unassisted. 3. Certification and Authentication I certify that I composed the above information based on my clinical judgement relating to this patient's medical condition and, if applicable, clinical findings communicated to me by the NPP or inpatient physician who performed the Home Health Referral. All further orders will be obtained through Dr. Wilson. Stand Alone Forms: Nursing Discharge Form Referrals: Sam Rowley P.T [Other] - 12/30/19 2:30 pm Yrn Wilson MD [ [facility] STAFF PHYSICIAN] - 12/29/19 11:15 am Activity:: Activity as Tolerated Equipment/Supplies:: No Equipment Needed Diet:: As Tolerated DS: Summary Status at Discharge Functional status at discharge: uses cane/walker Overall status at discharge: patient is progressing back to baseline Mental Status: mental status grossly normal Speech and Movement: speech and movement normal Mood: congruent mood Affect: normal affect Exam Psych Mental Status: mental status grossly normal Speech and Movement: speech and movement normal Mood: congruent mood Affect: normal affect DS: Data Vitals/I&O Vitals and I&O: Vital Signs Temperature 36.7 C 12/15/19 23:40 Temperature Source Tympanic 12/15/19 23:40 Pulse 73 12/15/19 23:40 Pulse Rhythm Regular 12/16/19 01:19 Respiratory Rate 18 12/15/19 23:40 Respiratory Effort Non-Labored 12/16/19 01:19 Respiratory Depth Normal 12/16/19 01:19 Respiratory Pattern Normal 12/16/19 01:19 Blood Pressure 165/51 H 12/15/19 23:40 Pulse Oximetry 94 L 12/15/19 23:40 Respiratory End-tidal CO2 30 12/14/19 16:10 Oxygen Delivery Method Room Air 12/15/19 23:40 Oxygen Flow Rate 0 12/15/19 23:40 Fraction of Inspired Oxygen (FIO2) 21 12/15/19 14:53 Pain Level 0 12/15/19 23:40 Intake & Output 12/15/19 12/15/19 12/16/19 11:59 23:59 11:59 Intake Total 1672.667 / 2555.334 882.667 / 2555.334 Output Total 1000 / 1500 500 / 1500 Balance 672.667 / 1055.334 382.667 / 1055.334 Intake: IV 1312.667 / 1715.334 402.667 / 1715.334 Oral 360 / 840 480 / 840 Output: Urine 1000 / 1500 500 / 1500 Other: Urine Color Yellow Light Carla Yellow Urine Appearance Clear Clear Clear Urine Odor None Normal Comment barraza D/C by previous nurse Voiding Methods Urinal Urinal Urinal PFSH Medical History Arthritis (Acute) CAD (coronary artery disease) (Chronic) Cellulitis (Acute) RIGHT LOWER LEG Diabetes (Chronic) History of seizures as a child (Acute) Hx of myocardial infarction (Acute) 10/2011 STRESS TEST COMPLETED 11/29/2019 Hyperlipidemia (Acute) Hypertension (Chronic) Renal insufficiency (Chronic) Surgical History colonoscopy (09/02/16) H/O heart artery stent (Chronic) X2 2013 History of tonsillectomy and adenoidectomy (Acute) Family History Maternal Aunt Colon cancer Maternal Aunt Colon cancer Social History Smoking/Tobacco Use Status: Former Tobacco Use Alcohol Intake: never Drug use: Never Substance use type: does not use Do you feel safe in your relationship?: Yes Additional Social history: SPOUSE IN ROOM
[2019-12-16 07:33] VITALS: BP 132/68; PULSE 77; RESP 20; TEMP 36.6; O2SAT 96
[2019-12-16] MEDS: Insulin Aspart 300 UNITS/3 ML PEN SC ×3 (08:28→12:17)
[2019-12-16] MEDS: Magnesium Oxide 400 MG TAB PO (08:58)
[2019-12-16] MEDS: Aspirin E.C. 81 MG TABEC PO (08:58)
[2019-12-16] MEDS: Acetaminophen 500 MG TAB 1000 MG PO ×2 (08:58→14:28)
[2019-12-16] MEDS: Naproxen 375 MG TAB PO (08:58)
[2019-12-16] MEDS: Carvedilol 12.5 MG TAB 25 MG PO (08:59)
[2019-12-16] MEDS: Losartan 50 MG TAB 100 MG PO (08:59)
[2019-12-16] MEDS: hydroCHLOROthiazide 25 MG TAB 50 MG PO (08:59)
[2019-12-16] MEDS: Gabapentin 300 MG CAP PO (08:59)
[2019-12-16] MEDS: Pantoprazole 40 MG TABCR PO (08:59)
[2019-12-16 11:39] VITALS: BP 103/55; PULSE 75; RESP 21; TEMP 36.9; O2SAT 98
--- NOTE | 2019-12-16 12:38 | W.NUTCONSULT ---
Date of service: 12/16/19 Time of Service: 12:38 Nutritional Consult ASSESSMENT: 74 year old male s/p left knee DJD. PMH: NIDDM, obesity. Followed by CDE in outpatient clinic. BMI indicates class 3 obesity. Following CHO diet with excellent intake. Not at nutritional risk at this time. MONITORING AND EVALUATION: po intake, blood sugar and weight trends Time Spent in Nutritional Counseling and Treatment: 0 time spent face to face
--- NOTE | 2019-12-16 13:09 | PT.INTREAT ---
Date of service: 12/16/19 Time of Service: 10:57 PT Notes Visit Reasons: (L) KNEE DJD Inpatient Physical Therapy Treatment Note [facility] Date: 12/16/2019 PRECAUTIONS: Fall. Standard. Activity as tolerated. SUBJECTIVE: Pt reports that his pain in tolerable. He notes that the pain is worse with lying in bed compared to standing or sitting in chair. Reports that he does have stairs to the basement in order to put wood in the fireplace in the basement and notes that he has someone to do that for him while he recovers and is not required to negotiate stairs. OBJECTIVE: IV line in L UE. PAIN: 3 BED MOBILITY/TRANSFERS Sit-stand: SBA with cues to push up from table/chair Stand-sit: SBA with cues to reach back to chair Bed-Chair: SBA Chair-bed: SBA GAIT Assistive Device: FWW Weight bearing: WBAT Assist: SBA by PT and PT student Distance: 60 feet + 60 feet Comments: Decreased step length and height with step through gait pattern THEREX: LAQ LLE x10 Hip flexion in seated R, L x10 Standing Hip Abduction L x10 Standing knee flexion L x10 Seated toe raises B x10 STAIRS: Pt was able to ascend and descend the 6? stairs x1 and 4? stairs x1 with bilateral UE support of railings. Demonstrated increased respiratory rate with stair negotiation and decreased functional strength in his R LE when ascending stairs. CGA by PT and SBA by PT student. ASSESSMENT: Pt demonstrates improved activity tolerance with ambulation as he was able to walk a greater distance without requiring a seated rest break. He tolerated therapeutic exercise without complaints of increased pain. Pt demonstrated significant difficulty with stair negotiation, however, has a ramp to enter the home and assistance with home duties that require the stairs. PLAN: Continue with established POC. Pt is to be discharged home when medically cleared. TREATMENT CODE/TIME: 93803 x1, 64370 x1 beginning at 10:57 A.M. Bert Vazquez, SPT Doctor of Physical Therapy Student [facility] Supervision provided by Nargis Bernabe PT, DPT, CLT [facility] [place], [place] CC:
--- NOTE | 2019-12-16 15:27 | PDOC.CMDIS ---
LACE Index Scoring Tool - Questions: Length of Stay (in days): 2 Acuity (Admit via E.D.?): No Comorbidities: Diabetes w/o Complication E.D. Visits: 0 - Answers: Total Score: 3 Risk of Readmission: Low Risk Care Management Discharge Reason for Hospitalization: (L) Knee DJD Discharge Plan: Kurtis will return home, when medically cleared per MD. He will follow up with Dr. Wilson and his plan of care as prescribed including activity restrictions and medication recommendations. Kurtis will also have new orders for VNA supports through [facility] for Physical therapy. He will transport via vehicle with his , Jessica. Patient/Family Education Needs: Review discharge instructions and discuss Ask Me Three. Services Needed at Discharge: DME Agency (Pt own FWW), Home Health Care Services (PT )
--- NOTE | 2019-12-19 10:20 | INDS_ITS ---
Date of service: 12/19/19 Time of Service: 10:21 PT Notes Visit Reasons: (L) KNEE DJD Inpatient Physical Therapy Discharge Summary Dates: 12/19/2019 Dates of Service: 12/15/2019 to 12/16/2019 This is a clinical summary of care provided on the duration of dates listed above. No charge was made in the completion of this documentation. Referring Doctor: Yrn Wilson M.D. PT Orders: PT CONSULT: s/p ortho surgery Precautions: Fall. Standard. Activity as tolerated. Patient Profile/Admitting Diagnosis: Pt is a 74-year-old male with history of bilateral knee OA presenting s/p L TKA with intraoperative navigation. PMHX: Social History/Home Situation: Pt lives in [place] with his . Notes there is a ramp to the front door and no stairs in the home. 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 Equipment Owned/DME: Cane and crutches. Subjective: NT Objective: General Observation: NT Mental Status: NT Pain: NT ROM: Right Upper Extremity: Shoulder Flexion WFL. Shoulder abduction WFL. Elbow flexion WFL. Wrist flexion WFL. Opening and closing of hand WFL. Left Upper Extremity: Shoulder Flexion WFL. Shoulder abduction WFL. Elbow flexion WFL. Wrist flexion WFL. Opening and closing of hand WFL. Right Lower Extremity: Hip flexion WFL. Hip abduction WFL. Knee flexion WFL. Ankle dorsiflexion WFL. Ankle plantarflexion WFL. Left Lower Extremity: Hip flexion WFL. Hip abduction WFL. Knee flexion 95 degrees. Knee extension 25 degrees. Ankle dorsiflexion WFL. Ankle plantarflexion WFL. Strength: Right Upper Extremity: Shoulder flexors 5/5. Shoulder abductors 5/5. Elbow flexors 5/5. Elbow extensors 5/5. Planning Associate strong. Left Upper Extremity: Shoulder flexors 5/5. Shoulder abductors 5/5. Elbow flexors 5/5. Elbow extensors 5/5. Planning Associate strong. Right Lower Extremity: Hip flexors 5/5. Hip abductors 5/5. Knee flexors 5/5. Knee extensors 5/5. Ankle dorsiflexors 4-/5. Ankle plantarflexors 5/5. Left Lower Extremity: Hip flexors 3-/5. Hip abductors 5/5. Knee flexors 3-/5. Knee extensors 3-/5. Ankle dorsiflexors 5/5. Ankle plantarflexors 5/5. Sensation: Intact as to pain and pressure on bilateral lower extremities. Bed Mobility/Transfers: Sit to stand SBA Stand to sit SBA Bed to chair SBA Chair to bed SBA Gait: Assistive Device: FWW Weight bearing: WBAT Assist: SBA by PT and PT student Distance: 60 feet + 60 feet Comments: Decreased step length and height with step through gait pattern STAIRS: Pt was able to ascend and descend the 6? stairs x1 and 4? stairs x1 with bilateral UE support of railings. Demonstrated increased respiratory rate with stair negotiation and decreased functional strength in his R LE when ascending stairs. CGA by PT and SBA by PT student. Balance: Static Sitting: Normal Dynamic Sitting: Normal Static Standing: Good Dynamic Standing: Fair Assessment: Pt is a 74-year-old male with history of bilateral knee OA that presented s/p TKA intraoperative navigation on post-operative day one for PT initial evaluation. He presented with impairment level findings and functional deficits listed below. Pt would continue to benefit from skilled physical therapy following discharge to home for improved functional mobility. Patient presented with clinical signs and symptoms consistent with current/admitting diagnoses that have resulted to mobility limitations, gait instability and generalized weakness demonstrated by the following impairment level findings: 1. Decreased strength to LLE hip and knee major muscle groups 2. Impaired standing balance 3. Impaired activity tolerance 4. Limitation of joint range of motion in L knee Impairments continue to contribute to the following functional limitations: 1. Increased dependence with transfers 2. Inability to safely ambulate without assistive device and physical assistance 3. Increase completion time for mobility ADL performance 4. Increased fall risk 5. Inability to negotiate steps alone safely Goals: Goals X1 week 1. Sit-Stand independent -NOT MET 2. Stand-Sit independent -NOT MET 3. Bed-Chair independent -NOT MET 4. Chair-Bed independent -NOT MET 5. Independent gait on level surface with use of least restrictive device for at least 300 feet without report of pain nor dyspnea -NOT MET 6. Independent stair negotiation while holding onto bilateral rails for at least 5 steps without report of pain nor dyspnea -NOT MET 7. Independent with home exercise program -NOT MET 8. Good static and dynamic standing balance/tolerance -NOT MET DISCHARGE PLAN/RECOMMENDATIONS: Pt is to be discharged home with a FWW for functional mobility. TREATMENT CODE/TIME: NC. Thank you very much for this referral. Bert Vazquez, SPT Doctor of Physical Therapy Student [facility] Supervision provided by: Nargis Bernabe PT, DPT, CLT [facility] [place], [place]
== END 2019-12-16 15:01 | disposition home health service (06) | DRG 470 ==
LOC: PDS 10:17 → MS 16:36
PROVIDERS: Admitting Provider Student in an Organized Health Care Education/Training Program; PCP Internal Medicine; Visit Provider Student in an Organized Health Care Education/Training Program
PROC: 0SRD0J9 Replacement of Left Knee Joint with Synthetic Substitute, Cemented, Open Approach (ICD-10-PCS; CPT 27447; principal; 2019-12-14 12:45)
DX: M17.12 Unilateral primary osteoarthritis, left knee (principal); M25.562 Pain in left knee; Z96.652 Presence of left artificial knee joint; G89.18 Other acute postprocedural pain; I25.10 Atherosclerotic heart disease of native coronary artery without angina pectoris; I10 Essential (primary) hypertension; E78.5 Hyperlipidemia, unspecified; N18.9 Chronic kidney disease, unspecified; E11.22 Type 2 diabetes mellitus with diabetic chronic kidney disease; Z79.4 Long term (current) use of insulin
CPT/HCPCS: 27447; 20985; 76942; 97162; NC; J0690; J1885; J2001; J2250; J2405; J3010

== ENCOUNTER 2019-12-29 11:20 | Outpatient (CLI) | payer OTHER, SELFPAY ==
--- NOTE | 2019-12-29 11:30 | DI.RAD_ITS ---
EXAM: XR STANDING ALIGNMENT CLINICAL HISTORY: 1ST POST OP TECHNIQUE: COMPARISON: XR STANDING ALIGNMENT from 10/13/2019 FINDINGS: AP standing alignment views were obtained. There appears to be slight spurring of the acetabular mar gins bilaterally. There is a total knee joint replacement position on the left. There are severe de generative changes involving the medial tibiofemoral joint on the right with varus angulation of the knee and medial subluxation of the femur on the tibia. Degenerative changes also noted involving the joints of the ankle deformity of the medial malleoli bi laterally. IMPRESSION:
--- NOTE | 2019-12-29 11:30 | DI.RAD_ITS ---
EXAM: XR KNEE LT 1V CLINICAL HISTORY: 1ST POST OP TECHNIQUE: COMPARISON: XR KNEE RT 2V AP,LAT from 10/13/2019 FINDINGS: Single lateral view was obtained. There is a total knee joint replacement position. Components appe ar well seated. IMPRESSION:
== END 2019-12-29 11:40 ==
PROVIDERS: PCP Internal Medicine; Referring Provider Internal Medicine; Visit Provider Student in an Organized Health Care Education/Training Program
DX: Z96.652 Presence of left artificial knee joint (principal); Z47.1 Aftercare following joint replacement surgery; M17.11 Unilateral primary osteoarthritis, right knee; M19.071 Primary osteoarthritis, right ankle and foot; M19.072 Primary osteoarthritis, left ankle and foot
CPT/HCPCS: 73560; 77073

== ENCOUNTER → 2020-01-27 09:44 | Outpatient (BNVA) | payer OTHER, SELFPAY | PROVIDERS: PCP Internal Medicine; Referring Provider Internal Medicine; Visit Provider Student in an Organized Health Care Education/Training Program | DX: Z96.652 Presence of left artificial knee joint (principal); Z47.1 Aftercare following joint replacement surgery ==

== ENCOUNTER 2020-02-09 22:07 | Inpatient (IN) | payer OTHER, SELFPAY ==
[2020-02-09 22:08] VITALS: BP 113/53; PULSE 95; RESP 20; TEMP 39.1; O2SAT 94
--- NOTE | 2020-02-09 22:27 | ED.GENADUL_ITS ---
Discharge Plan Disposition Patient Disposition: [facility] INPATIENT Condition: Serious Discharge Details Chief Complaint: Fever Clinical Impression: Sepsis, Cellulitis Primary Care Provider: Patrice Camejo ED Provider: Reymundo Moulton Home Meds and New Rx's Prescriptions: No Action carvedilol 12.5 MG tablet 25 mg PO BID RF: 0 hydrochlorothiazide 50 MG tablet 50 mg PO DAILY RF: 0 magnesium oxide 400 MG tablet 400 mg PO BID RF: 0 gabapentin 300 MG capsule 300 mg PO BID RF: 0 losartan [Cozaar] 100 MG tablet 100 mg PO DAILY RF: 0 nitroglycerin [Nitrostat] 0.4 MG tablet, sublingual 0.4 mg Sublingual Q5 MIN PRN X3 PRNQty: 15 RF: 0 insulin lispro [Humalog KwikPen Insulin] 100 UNIT/ML insulin pen SQ .SLIDING SCALE RF: 0 Lantus Solostar U-100 Insulin 300 UNITS/3 ML insulin pen 80 units Sub-Q HS RF: 0 Jardiance 10 MG tablet 25 mg PO DAILY RF: 0 doxazosin 4 mg Tablet 4 mg PO HS RF: 0 naproxen 375 mg Tablet 375 mg PO BID Qty: 60 RF: 3 acetaminophen 500 mg tablet 1,000 mg PO Q8H PRN (Reason: pain) Qty: 90 RF: 3 pantoprazole 40 mg tablet,delayed release (DR/EC) 40 mg PO DAILY Qty: 30 RF: 0 oxycodone 5 mg tablet 5 mg PO Q4H Qty: 15 RF: 0 aspirin [Aspir-81] 81 MG tablet,delayed release (DR/EC) 1 tab PO BID Qty: 60 RF: 0 Medical Decision Making 75-year-old male with past medical history of a recent left total knee replacement in late November, diabetes, coronary artery disease, hypertension, high cholesterol, previous GA, who presents today for evaluation of febrile illness. Earlier today after dinner patient was feeling weak, slightly off, he did fall to the ground, but he was gently laying himself down, he did not have any significant trauma to his knees. He did not hit his head. He denies any pain or injury after this. However because of continued weakness, subsequent shakes, and then evidence of a fever EMS was called for further evaluation. He denies any cough, chest pain, shortness of breath, numbness, tingling, weakness. He does have pain in his left knee, which seems to be slightly worsening the last 24 hours. He denies any dysuria. He does state that his has been coughing and has felt slightly sick as of late. He has gotten his flu shot. He denies any other complaints at this time. He is notably stoic. He denies any headache or neck pain. Physical exam demonstrates mildly erythematous left knee, no significant swelling at this point though. Does appear warmer on the left compared to the right which is the postoperative site, evidence of drainage from the incision site, or other abnormalities. No evidence of clinical menin gitis. Lung sounds are diminished throughout, but no evidence of significant rales or rhonchi. Differential includes viral etiology, pneumonia, urinary tract infection, and potentially PE with subsequent infection. We will gently rehydrate, evaluate for potential infectious etiologies, monitor closely and reassess. Patient does meet Sirs positivity, we will start antibiotics for suspected infection. Most likely source in my mind is the patient's leg or lungs, we will start vancomycin as this will cover gram positives, and add gram- negative coverage as needed. 12 AM Laboratory work-up has returned, no white count, no bandemia, however lactate is notably elevated at 3.3. There is evidence of an acute kidney injury with a creatinine of 1.81, GFR reduced at 36.5, ammonia normal, troponin normal, TSH stable. Urinalysis inconsistent with infection. Chest x-ray shows interstitial thickening low lung volumes probably dependent subsegmental atelectasis, no evidence of focal pneumonia. Influenza testing negative. I do feel that the patient does still continue demonstrating signs and symptoms concerning for infectious etiology. Currently the patient denies any concerning travel history to a high risk area, direct or known indirect exposure to an area and/or patient's with known coronavirus activity. The patient has none of the concerning red flags recommended by the CDC for coronavirus including fever, cough, or shortness of breath. The patient looks notably clinically well, and does not demonstrate evidence of respiratory distress, significant or severe illness, or sepsis. At this time with the patient's history, clinical exam, and clinical symptoms, they are not in line or congruent with current CDC recommendations for testing. I do feel that the patient's left knee is likely a potential source of infectious etiology. Zosyn has been added to his treatment. I have contacted the hospitalist Dr. ramos, he has assessed the patient and agrees with the need for admission. Patient currently remains stable enough, however out of an abundance of precaution will admit to the ICU for close observation to make sure there is no clinical decline during the evening. No indication for pressors at this time. He does seem to be rallying after the fluids and IV antibiotics. Patient will be admitted. I have extensively reviewed the treatment plan with the patient. I have addressed all patient concerns at this time. I have also discussed the plan with the admitting physician and they agree with the current assessment and plan and have agreed to assume responsibility for the patient. All parties demonstrate verbal understanding and agreement with our assessment and plan at this time. EKG 22: 28 Rate 99, ID 268, QTc 490, QRS 94, sinus rhythm, first-degree AV block, no significant ST elevation or depression, no significant T wave inversions except for in lead III, no Q waves. No evidence of STEMI. FINDINGS: Lungs: Low lung volumes. Mild interstitial thickening and or crowding in the setting of low lung volumes. Probable dependent subsegmental atelectasis. No martita airspace consolidation. Pleural space: No pleural effusion. No pneumothorax. Heart/Mediastinum: No cardiomegaly. Bones/joints: No acute fracture. IMPRESSION: Mild interstitial thickening and or crowding in the setting of low lung volumes. Probable dependent subsegmental atelectasis. Thank you for allowing us to participate in the care of your patient. Dictated and Authenticated by: Olga Dunne MD 02/09/2020 11:20 PM Eastern Time ([place] & [place]) HPI General Date/Time Provider Initiated Documentation: 02/09/20 22:17 . HPI Narrative: 75-year-old male with past medical history of a recent left total knee replacement in late November, diabetes, coronary artery disease, hypertension, high cholesterol, previous GA, who presents today for evaluation of febrile illness. Earlier today after dinner patient was feeling weak, slightly off, he did fall to the ground, but he was gently laying himself down, he did not have any significant trauma to his knees. He did not hit his head. He denies any pain or injury after this. However because of continued weakness, subsequent shakes, and then evidence of a fever EMS was called for further evaluation. He denies any cough, chest pain, shortness of breath, numbness, tingling, weakness. He does have pain in his left knee, which seems to be slightly worsening the last 24 hours. He denies any dysuria. He does state that his has been coughing and has felt slightly sick as of late. He has gotten his flu shot. He denies any other complaints at this time. He is notably stoic. He denies any h eadache or neck pain. Related Data Home Medications Medication Instructions Recorded Confirmed losartan [Cozaar] 100 mg PO DAILY 11/01/13 01/27/20 nitroglycerin [Nitrostat] 0.4 mg SUBLINGUAL Q5 MIN PRN X3 11/01/13 01/27/20 PRN #15 tab carvedilol 25 mg PO BID tab-cap 12/18/14 01/27/20 gabapentin 300 mg PO BID tab-cap 12/18/14 01/27/20 hydrochlorothiazide 50 mg PO DAILY tab-cap 12/18/14 01/27/20 magnesium oxide 400 mg PO BID 12/18/14 01/27/20 Lantus Solostar U-100 Insulin 80 units SUB-Q HS 09/01/16 01/27/20 insulin lispro [Humalog KwikPen unit SQ .SLIDING SCALE 09/01/16 01/27/20 Insulin] Jardiance 25 mg PO DAILY 05/22/18 01/27/20 doxazosin 4 mg PO HS 12/07/19 01/27/20 acetaminophen 1,000 mg PO Q8H PRN #90 tab 12/16/19 01/27/20 aspirin [Aspir-81] 1 tab PO BID #60 tab 12/16/19 01/27/20 naproxen 375 mg PO BID #60 tab 12/16/19 01/27/20 oxycodone 5 mg PO Q4H #15 tab 12/16/19 01/27/20 pantoprazole 40 mg PO DAILY #30 tab 12/16/19 01/27/20 Previous Rx's Medication Instructions Recorded nitroglycerin [Nitrostat] 0.4 mg SUBLINGUAL Q5 MIN PRN X3 11/01/13 PRN #15 tab acetaminophen 1,000 mg PO Q8H PRN #90 tab 12/16/19 aspirin [Aspir-81] 1 tab PO BID #60 tab 12/16/19 naproxen 375 mg PO BID #60 tab 12/16/19 oxycodone 5 mg PO Q4H #15 tab 12/16/19 pantoprazole 40 mg PO DAILY #30 tab 12/16/19 Allergies Allergy/AdvReac Type Severity Reaction Status Date / Time amlodipine besylate AdvReac Mild edema Unverified 01/27/20 09:50 [From Norvasc] enalapril maleate AdvReac Mild cough Unverified 01/27/20 09:50 [From Vasotec] enalaprilat dihydrate AdvReac Mild cough Unverified 01/27/20 09:50 [From Vasotec] pravastatin sodium AdvReac Mild myalgia Unverified 01/27/20 09:50 [From Pravachol] rosuvastatin [From Crestor] AdvReac Mild Other (See Unverified 01/27/20 09:50 Comment) General Stated Complaint: Fever TONG: 2 Review of Systems All systems reviewed & are unremarkable except as noted in HPI and below PFSH Medical History (Updated 02/10/20 @ 00:52 by Reymundo Moulton DO) Arthritis (Acute) CAD (coronary artery disease) (Chronic) Cellulitis (Acute) RIGHT LOWER LEG Diabetes (Chronic) History of seizures as a child (Acute) Hx of myocardial infarction (Acute) 10/2011 STRESS TEST COMPLETED 11/29/2019 Hyperlipidemia (Acute) Hypertension (Chronic) Renal insufficiency (Chronic) Surgical History (Updated 12/29/19 @ 12:14 by JOURDAN Crump) colonoscopy (09/02/16) H/O heart artery stent (Chronic) X2 2013 History of tonsillectomy and adenoidectomy (Acute) History of total left knee replacement (TKR) (Acute 12/14/19) Dr. Wilson Social History Smoking/Tobacco Use Status: Former Tobacco Use Alcohol Intake: never Drug use: Never Substance use type: does not use Do you feel safe at home: Yes Do you feel safe in your relationship?: Yes Additional Social history: SPOUSE IN ROOM Exam Narrative Exam Narrative: 1.Const: Well-nourished, Well-developed, appearing stated age, obese, mildly unkempt 2.Eyes: PERRL, no conjunctival injection, and symmetrical lids. 3.ENT: Atraumatic external nose and ears. Moist MM. Neck: Symmetric, trachea midline, No thyromegaly. No evidence of trauma. Patient demonstrates good movement of cervical neck. There is no nuchal rigidity, no nuchal tenderness. Patient is able to flex the neck without any difficulty or significant pain. Negative Kernig's and Brudzinski sign. 4.CVS: +S1/S2, No murmurs or gallops. Peripheral pulses 2+ and equal in all extremities. Brisk capillary refill in all extremities. 5.RESP: Unlabored respiratory effort. Clear to auscultation bilaterally. No wheezes rales or rhonchi 6.GI: Soft, Nontender/Nondistended, No hepatosplenomegaly. No guarding or rebound. 7.MSK: Normocephalic/Atraumatic, Extremities w/o deformity. No cyanosis or clubbing, previous incision site is clean dry and intact on the left knee, the left knee is warmer compared to the right, mild evidence of erythema surrounding the left knee, but no significant effusion or notable swelling. There is a small scab proximal to the knee, there is no evidence of drainage from the site. Minimal calf tenderness. 8.Skin: Warm, Dry. No rashes or lesions. Please see musculoskeletal for description of left knee 9.Neuro: business services assistant II-XII grossly intact. Sensation grossly intact, no focal neurologic deficits. 10.Psych: (AAO) x3. Appropriate mood and affect Course Vital Signs Vital signs: Vital Signs Temperature 39.1 C H 02/09/20 22:08 Pulse 95 H 02/09/20 22:08 Respiratory Rate 20 02/09/20 22:08 Blood Pressure 113/53 L 02/09/20 22:08 Pulse Oximetry 94 L 02/09/20 22:08 Temperature 39.1 C H 02/09/20 22:08 Temperature Source Oral 02/09/20 22:08 Pulse 95 H 02/09/20 22:08 Respiratory Rate 20 02/09/20 22:08 Respiratory Effort 02/09/20 22:14 Blood Pressure 113/53 L 02/09/20 22:08 Blood Pressure Position Supine 02/09/20 22:08 Pulse Oximetry 94 L 02/09/20 22:08 Oxygen Delivery Method Nasal Cannula 02/09/20 22:08 Oxygen Flow Rate 2 02/09/20 22:08 Lab/Test Results Lab/Test Results: 02/09/20 22:18 Blood Blood Culture - Pending 02/09/20 22:18 Blood Blood Culture - Pending
[2020-02-09] MEDS: Acetaminophen 500 MG TAB 1000 MG PO (22:49)
[2020-02-09] MEDS: PIPERACILLIN/TAZO 4.5 GM in Normal Saline 100 ML IVPB (22:51)
[2020-02-09 23:06] LABS: Abs Immature Grans 0.02 k/cumm (0.0-0.09); Absolute Basophil Count 0.01 k/cumm (0.0-0.2); Absolute Eosinophil Count 0.02 k/cumm (0.0-0.7); Absolute Lymphocyte Count 0.23 k/cumm (1.2-3.4); Absolute Monocyte Count 0.31 k/cumm (0.11-0.7); Absolute Neutrophil Count 7.99 k/cumm (1.2-6.7); Basophils % 0.1; Eosinophils % 0.2; HCT 44.2 % (40.0-50.0); HGB 14.5 g/dL (13.5-17.5); Immature Grans % 0.2 %; Lymphocytes % 2.7; Mean Corp. HGB Concentration 32.8 g/dL (32.0-36.0); Mean Corpuscular Hemoglobin 27.9 pg (27.0-33.0); Monocytes % 3.6; Neutrophils % 93.2; Platelet Count 119 x1000/uL (130-400); RBC Distribution Width 14.9 % (11.8-14.1); White Blood Cell Count 8.58 k/cumm (4.4-10.8)
[2020-02-09 23:07] LABS: Lactate 3.3 mmol/L (0.6-1.4)
--- NOTE | 2020-02-09 23:14 | DI.RAD_ITS ---
EXAM: XR CHEST 2V PA LATERAL CLINICAL HISTORY: fever of unknown origin TECHNIQUE: 2D digital imaging was performed. COMPARISON: XR CHEST 2V PA LATERAL from 08/12/2018 FINDINGS: MEDIASTINUM: Normal. HEART: Normal. PULMONARY VASCULATURE: Normal. LUNGS: Dependent atelectatic changes in the lung bases. No focal consolidating infiltrates are prese nt. PLEURAL SPACE: No pleural effusion or pneumothorax. BONE:Degenerative changes are present. OTHER FINDINGS:Normal. IMPRESSION: Mild basilar atelectasis. DATA REPOSITORY: RADIATION DOSE DELIVERED:
[2020-02-09 23:16] LABS: INR 1.1 (0.9-1.1); PTT Activated 25.1 sec (21.0-31.4); Prothrombin Time 11.5 sec (9.3-11.0)
[2020-02-09] MEDS: Normal Saline 500 ML IV (23:17)
--- NOTE | 2020-02-09 23:20 | DI.VRAD_ITS ---
PROCEDURE INFORMATION: Exam: XR Chest, 2 Views Exam date and time: 02/09/2020 23:14 Age: 75 years old Clinical indication: Fever TECHNIQUE: Imaging protocol: XR of the chest Views: 2 views. COMPARISON: CR XR CHEST 2V PA LATERAL 08/12/2018 14:22 FINDINGS: Lungs: Low lung volumes. Mild interstitial thickening and or crowding in the setting of low lung volumes. Probable dependent subsegmental atelectasis. No martita airspace consolidation. Pleural space: No pleural effusion. No pneumothorax. Heart/Mediastinum: No cardiomegaly. Bones/joints: No acute fracture. IMPRESSION: Mild interstitial thickening and or crowding in the setting of low lung volumes. Probable dependent subsegmental atelectasis. Dictated and Authenticated by: Olga Dunne MD. Ordering:ANYA Dwyer MD
[2020-02-09 23:25] LABS: Ammonia 10 umol/L (11-32)
[2020-02-09 23:26] LABS: ALT 61 U/L (16-63); AST 51 U/L (15-37); Albumin 3.8 g/dL (3.4-5.0); Alkaline Phosphatase 103 U/L (46-116); Anion Gap 11.4 mmol/L (3-11); BUN 44 mg/dL (7-18); Bilirubin, Total 0.5 mg/dL (0.2-1.0); CO2 25.6 mmol/L (21.0-32.0); CREATININE 1.81 mg/dL (0.70-1.30); Calcium 8.9 mg/dL (8.5-10.1); Chloride 104 mmol/L (98-107); Estimated GFR 36.54 (mL/min/1.73m2); Glucose 121 mg/dL (74-106); NT-proBNP 169 pg/mL (<300); Potassium 4.4 mmol/L (3.5-5.1); Sodium 141 mmol/L (136-145); TSH (W/Ref FT4) 1.39 uIU/mL (0.36-3.74); Total Protein 7.2 g/dL (6.4-8.2); Troponin I < 0.05 ng/Ml (<0.06)
[2020-02-09 23:33] LABS: D-Dimer 1334 ng/mlFEU (<500)
[2020-02-09 23:49] VITALS: BP 97/38; PULSE 87; RESP 24; TEMP 38.9; O2SAT 100
[2020-02-09] MEDS: VANCOMYCIN 2,000 MG in Normal Saline 500 ML 333.3333 MG IVPB (23:54)
[2020-02-10] VITALS (132 sets, daily range): BP systolic 81–143; BP diastolic 40–93; PULSE 68–95; RESP 11–27; TEMP 36.3–37.4; O2SAT 83–98
[2020-02-10 00:09] LABS: Bilirubin Negative (Negative); Blood Negative (Negative); Clarity Clear (Clear); Glucose 500 mg/dL (Negative); Ketones Negative (Negative); Leukocyte Esterase Negative (Negative); Nitrite Negative (Negative); Urobilinogen 0.2 EU/dL (Up TO 0.2)
[2020-02-10] MEDS: Enoxaparin 120 MG/0.8 ML SYR SC (01:15)
--- NOTE | 2020-02-10 01:18 | HPE_ITS ---
Date of service: 02/10/20 Time of Service: 01:18 Assessment and Plan Assessment and plan (1) Sepsis: Status: Acute Assessment and plan: Given the patient's acute onset of fever, constitutional symptoms including nausea, malaise and anorexia, elevated lactate, and low blood pressures I agree with treating this patient as sepsis until proven otherwise. As far as a source, the knee looks the most likely. Is does not look like a wound infection. I am not sure the joint is infected either, but there is an open skin wound on the landers so this may be a skin source. Flu was negative and the patient's not endorsing symptoms of upper respiratory infection. Patient has been started on vancomycin and Zosyn for empiric broad-spectrum coverage. I will continue this until the source of infection is clarified. 1 L of fluid has been ordered. Looks like on his recent myocardial perfusion imaging that he has a normal ejection fraction. With his pressure still soft, I will give an additional liter and monitor in the ICU. Patient has elevated d-dimer as well. The heat and swelling in the left leg co uld also be a DVT. He has some dyspnea that he describes as chronic, but he also seems to be a minimizer in his history. After discussion with Dr. Moulton the emergency room, will give a dose of therapeutic Lovenox and get lower extremity Doppler in the morning. (2) Diabetes mellitus type 2: Status: Chronic Assessment and plan: Well-controlled with an A1c less than 7 in October. We will continue his basal and bolus insulin and hold on his SGLT2 given his fluid status. Insulin has been ordered at slightly lower than his outpatient doses and we will titrate as needed. (3) History of total left knee replacement (TKR): Status: Acute Assessment and plan: Orthopedic consult to asses any concern for septic knee. (4) Obstructive sleep apnea syndrome: Status: Chronic Assessment and plan: On CPAP as outpatient, hopefully would get his unit in the help him sleep. (5) Abnormal LFTs: Status: Chronic Assessment and plan: Patient has chronic nonalcoholic steatohepatitis. Reviewed platelets and LFTs over the past 6 months, which are consistent with possible advanced fibrosis. Again, this is a chronic issue and appears compensated, but possibility of cirrhosis should be kept in mind. (6) Renal insufficiency: Status: Chronic Assessment and plan: Patient's creatinine is above his baseline in the low ones. This is likely related to prerenal with possible sepsis. Giving fluid as above and will follow. (7) Benign hypertension: Status: Chronic Assessment and plan: Holding outpatient blood pressure medications with exception of carvedilol, though we may have to hold this as well if blood pressures do not trend up as we expect. (8) DVT prophylaxis: Status: Acute Assessment and plan: Getting therapeutic Lovenox as above. (9) Discharge planning issues: Status: Acute Assessment and plan: Patient is currently in the ICU with a guarded status. He is DNR/DNI. History of Present Illness History of Present Illness Chief Complaint: Leg pain and weakness Narrative: 75-year-old with medical history including coronary artery disease, type 2 diabetes that is well controlled, obesity, and total left knee replacement on December 14 of this year who presented after falling to the floor as he felt like his left knee gave out strength. The patient is a somewhat vague historian, but describes falling about 6 PM evening that he presented to the emergency room. He felt like he lost strength in that left knee, could not get back up. He denies significant trauma either to the knee or to his head. He states that his knee has been swollen off and on since surgery, but overall he felt like he was doing okay postoperatively. The pain and swelling did get worse the day of admission. He does endorse feeling warm if not feverish today, with an episode of feeling chilled after his fall, and feeling somewhat lightheaded. He has not had appetite this evening. He had an episode of nausea, but this has resolved. He denies any chest pain or feelings of palpitations. He has not had any cough, runny nose, nasal congestion. He admits he gets dyspneic with much activity, but he states this is his baseline. Review of Systems Narrative: General: Per HPI. No significant weight changes. HEENT: No headaches, no vision changes, no sores in the mouth or sore throat. Respiratory: No wheezes or sputum GI: No vomiting. No diarrhea or stool changes. No blood in the stool or melena. : Urinary frequency, chronic. No dysuria or hematuria. He does have some redness in the scrotum for which he uses antifungals. He has a chronic phimosis Skin: Small area superior wound that still has scab, no other skin lesions rashes. MSK: No other joint pain other than that left knee is currently bothering him. Heme: No bleeding or abnormal bruising. [facility] Surgical History colonoscopy (09/02/16) H/O heart artery stent (Chronic) X2 2014 History of tonsillectomy and adenoidectomy (Acute) History of total left knee replacement (TKR) (Acute 12/14/19) Dr. Wilson Family History Maternal Aunt Colon cancer Maternal Aunt Colon cancer Father , 70s Heart disease Social History (Updated 02/10/20 @ 01:28 by Nasir Fisher) Smoking/Tobacco Use Status: Former Tobacco Use Alcohol Intake: never Drug use: Never Substance use type: does not use Do you feel safe at home: Yes Do you feel safe in your relationship?: Yes Additional Social history: Lives with his Joellen. 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 Meds Home Medications and Allergies Home Medications Medication Instructions Recorded Confirmed Type losartan [Cozaar] 100 mg PO DAILY 11/01/13 02/10/20 History nitroglycerin [Nitrostat] 0.4 mg SUBLINGUAL Q5 MIN PRN X3 11/01/13 02/10/20 Rx PRN #15 tab carvedilol 25 mg PO BID tab-cap 12/18/14 02/10/20 History gabapentin See Rx Instructions .ROUTE 12/18/14 02/10/20 History .COMPLEX tab-cap hydrochlorothiazide 25 mg PO DAILY tab-cap 12/18/14 02/10/20 History magnesium oxide See Rx Instructions .ROUTE .COMPLEX 12/18/14 02/10/20 History Lantus Solostar U-100 Insulin See Rx Instructions .ROUTE .COMPLEX 09/01/16 02/10/20 History insulin lispro [Humalog KwikPen unit SQ .SLIDING SCALE 09/01/16 01/27/20 History Insulin] Jardiance 25 mg PO DAILY 05/22/18 02/10/20 History doxazosin 4 mg PO HS 12/07/19 02/10/20 History acetaminophen 1,000 mg PO Q8H PRN #90 tab 12/16/19 02/10/20 Rx naproxen 375 mg PO BID #60 tab 12/16/19 01/27/20 Rx oxycodone 5 mg PO Q4H #15 tab 12/16/19 01/27/20 Rx pantoprazole 40 mg PO DAILY #30 tab 12/16/19 01/27/20 Rx aspirin [Aspir-81] 1 tab PO DAILY 02/10/20 02/10/20 History fluticasone propionate 1 spray INTRANASAL DAILY 02/10/20 02/10/20 History Allergies Allergy/AdvReac Type Severity Reaction Status Date / Time amlodipine besylate AdvReac Mild edema Unverified 01/27/20 09:50 [From Norvasc] enalapril maleate AdvReac Mild cough Unverified 01/27/20 09:50 [From Vasotec] enalaprilat dihydrate AdvReac Mild cough Unverified 01/27/20 09:50 [From Vasotec] pravastatin sodium AdvReac Mild myalgia Unverified 01/27/20 09:50 [From Pravachol] rosuvastatin [From Crestor] AdvReac Mild Other (See Unverified 01/27/20 09:50 Comment) Exam Narrative Exam Narrative: General: Alert and oriented, responds appropriately to questions. Appears somewhat clammy, mildly dyspneic when speaking in full sentences or moving his body in bed. HEENT: Normocephalic and atraumatic. Pupils equal round reactive light with extraocular motion intact. No icterus. Mucous membranes moist, no oral pharyngeal lesions. Neck is supple with no masses. I cannot appreciate elevation of jugular venous pressure. Cardiovascular: Regular rate and rhythm no murmurs gallops or rubs Lungs: Clear to auscultation bilaterally, with mild dyspnea as above Abdomen: Active bowel sounds, soft, nontender with no masses palpable, though exam limited by body habitus. : Phimosis of foreskin, but no discharge or lesions. Scrotum red, no open wounds. Extremities: Left lower extremity warm and more red from the knee distally. Left knee effusion noted. Surgical scar intact with a 5 mm area of scabbing superiorly, no discharge. 1+ pitting edema on the left, 2+ on right. Right calf not red or warm, but diameter about 3 cm greater than left (patient states right is always bigger). No cyanosis or clubbing in the digits. Cap refill less than 2 seconds in the toes. MSK: As above. Range of motion the left knee from about 10 degrees to 90 degrees with some pain, but not exquisitely painful. Neurologic: Cranial nerves grossly intact. Normal speech. Normal coordination. Strength and sensation to light touch intact in 4 extremities. Psychiatric: Normal mood and affect. Results EKG: Regular, appears sinus with first-degree AV block. Normal axis. QTC calculated at 490. No ST-T changes. Chest x-ray: Mild interstitial thickening or crowding the setting of low lung volumes, probable dependent subsegmental atelectasis. Labs Result diagrams: 02/09/20 22:45 02/09/20 22:45 Labs: Laboratory Results - last 24 hr 02/09/20 02/09/20 02/09/20 22:45 22:45 22:45 WBC RBC Hgb Hct MCV MCH MCHC RDW Plt Count MPV Immature Gran % Neutrophils % Lymphocytes % Monocytes % Eosinophils % Basophils % Absolute Neutrophils Absolute Lymphocytes Absolute Monocytes Absolute Eosinophils Absolute Basophils PT INR APTT D-Dimer Sodium 141 Potassium 4.4 Chloride 104 Carbon Dioxide 25.6 Anion Gap 11.4 H BUN 44 H Creatinine 1.81 H Estimated GFR/1.73 m2 36.54 Glucose 121 H Lactate 3.3 H* Calcium 8.9 Total Bilirubin 0.5 AST 51 H ALT 61 Alkaline Phosphatase 103 Ammonia 10 L Troponin I < 0.05 NT-Pro-B Natriuret Pep 169 Total Protein 7.2 Albumin 3.8 TSH 1.39 Urine Color Urine Clarity Urine pH Ur Specific [place] Urine Protein Urine Ketones Urine Blood Urine Nitrite Urine Bilirubin Urine Urobilinogen Ur Leukocyte Esterase Urine Glucose 02/09/20 02/09/20 02/09/20 22:45 22:45 23:55 WBC 8.58 RBC 5.20 Hgb 14.5 Hct 44.2 MCV 85.0 MCH 27.9 MCHC 32.8 RDW 14.9 H Plt Count 119 L MPV 10.0 Immature Gran % 0.2 Neutrophils % 93.2 Lymphocytes % 2.7 Monocytes % 3.6 Eosinophils % 0.2 Basophils % 0.1 Absolute Neutrophils 7.99 H Absolute Lymphocytes 0.23 L Absolute Monocytes 0.31 Absolute Eosinophils 0.02 Absolute Basophils 0.01 PT 11.5 H INR 1.1 APTT 25.1 D-Dimer 1334 H Sodium Potassium Chloride Carbon Dioxide Anion Gap BUN Creatinine Estimated GFR/1.73 m2 Glucose Lactate Calcium Total Bilirubin AST ALT Alkaline Phosphatase Ammonia Troponin I NT-Pro-B Natriuret Pep Total Protein Albumin TSH Urine Color Yellow Urine Clarity Clear Urine pH 6.0 Ur Specific [place] 1.020 Urine Protein Negative Urine Ketones Negative Urine Blood Negative Urine Nitrite Negative Urine Bilirubin Negative Urine Urobilinogen 0.2 Ur Leukocyte Esterase Negative Urine Glucose 500 H Last Vital Signs Temp 37.3 C 02/10/20 00:57 Pulse 88 02/10/20 00:57 Resp 24 02/10/20 00:57 BP 92/40 L 02/10/20 00:57 Pulse Ox 96 02/10/20 00:57
[2020-02-10] MEDS: Normal Saline 500 ML IV ×2 (01:50→05:02)
[2020-02-10] MEDS: Normal Saline 1,000 ML 1000 ML IV (02:15)
[2020-02-10] MEDS: Normal Saline Flush 10 ML SYR IVP ×3 (02:39→18:04)
[2020-02-10] MEDS: oxyCODONE 5 MG TAB PO ×2 (02:45→17:55)
[2020-02-10] MEDS: PIPERACILLIN/TAZO 2.25 GM in Normal Saline 50 ML IVPB ×4 (03:00→21:55)
[2020-02-10 06:35] LABS: Abs Immature Grans 0.05 k/cumm (0.0-0.09); Absolute Lymphocyte Count 0.49 k/cumm (1.2-3.4); Basophils % 0.1; HCT 39.5 % (40.0-50.0); HGB 13.1 g/dL (13.5-17.5); Immature Grans % 0.3 %; Lymphocytes % 3.4; Mean Corp. HGB Concentration 33.2 g/dL (32.0-36.0); Mean Corpuscular Hemoglobin 28.9 pg (27.0-33.0); Mean Platelet Volume 9.5 fL (8.0-11.0); Monocytes % 6.6; Neutrophils % 89.6; Platelet Count 133 x1000/uL (130-400); RBC 4.54 m/cumm (4.50-6.00); RBC Distribution Width 15.1 % (11.8-14.1); White Blood Cell Count 14.32 k/cumm (4.4-10.8)
[2020-02-10 06:40] LABS: Absolute Basophil Count 0.01 k/cumm (0.0-0.2); Absolute Monocyte Count 0.95 k/cumm (0.11-0.7); Absolute Neutrophil Count 12.83 k/cumm (1.2-6.7)
[2020-02-10 06:50] LABS: ALT 49 U/L (16-63); AST 46 U/L (15-37); Albumin 3.4 g/dL (3.4-5.0); Alkaline Phosphatase 82 U/L (46-116); Anion Gap 7.2 mmol/L (3-11); BUN 45 mg/dL (7-18); Bilirubin, Total 0.9 mg/dL (0.2-1.0); CO2 27.8 mmol/L (21.0-32.0); CREATININE 2.11 mg/dL (0.70-1.30); Calcium 8.2 mg/dL (8.5-10.1); Chloride 105 mmol/L (98-107); Estimated GFR 30.61 (mL/min/1.73m2); Glucose 132 mg/dL (74-106); Magnesium 1.5 mg/dL (1.8-2.4); Potassium 5.2 mmol/L (3.5-5.1); Sodium 140 mmol/L (136-145); Total Protein 6.6 g/dL (6.4-8.2)
--- NOTE | 2020-02-10 08:26 | PGE_ITS ---
Date of Service Date of service: 02/10/20 Time of Service: 08:27 Assessment and Plan Assessment and plan (1) Sepsis: Status: Acute Assessment and plan: Patient met criteria for sepsis including acute organ dysfunction source of infection (septic left knee), elevated blood lactate, tachycardia and hypotension. Currently he is hemodynamically stable he has been cultured up and has been started on Zosyn and vancomycin since last night. Plan will be for the patient to go the OR to have an incision and drainage and washout of his left TKA. Qualifiers: Sepsis type: sepsis due to unspecified organism Sepsis acute organ dysfunction status: with acute organ dysfunction Severe sepsis acute organ dysfunction type: acute renal failure Acute renal failure type: unspecified Severe sepsis shock status: without septic shock Qualified Code(s): A41.9 - Sepsis, unspecified organism; R65.20 - Severe sepsis without septic shock; N17.9 - Acute kidney failure, unspecified (2) Septic arthritis of knee, left: Status: Acute Assessment and plan: As above Qualifiers: Septic arthritis organism: due to unspecified organism Qualified Code(s): M00.9 - Pyogenic arthritis, unspecified (3) History of total left knee replacement (TKR): Status: Acute Assessment and plan: As above (4) Benign hypertension: Status: Chronic Assessment and plan: We will hold his blood pressure medications for now once he is stabilized from sepsis we will reinstitute his hydrochlorothiazide and losartan. I will continue his carvedilol at a lower dose to prevent rebound tachycardia. We will continue his doxazosin as he needs treatment for his BPH. (5) Diabetes mellitus type 2: Status: Chronic Assessment and plan: We will cover him with insulin resistant sliding scale. Once he returns from the OR is able to eat we can put him on some ca rbohydrate coverage as well. (6) Acute kidney injury (nontraumatic): Status: Acute Assessment and plan: Patient has chronic kidney disease secondary to his diabetes mellitus but has had significant worsening of his renal function secondary to sepsis. We will hydrate him but have to monitor closely does not develop congestive failure. Subjective Subjective Interval history since last seen: 75-year-old male with a history of coronary artery disease with 2 prior stents in 2013, essential hypertension, diabetes mellitus type 2 requiring insulin, status post left TKA performed December 14, 2019 now presented to the emergency department last night with complaints of fever chills, rigors, generalized weakness and left knee pain. Patient reports scraping his left landers about 3 weeks ago dropping a piece of wood on it. He did not seek medical attention for it and did not wash it up right away. Last night he presented with signs of sepsis including fever 39.1, left knee swelling and pain and erythema, mild hypotension and borderline tachycardia along with acute kidney injury, elevated blood lactate. Blood cultures were obtained and patient was started on Zosyn and vancomycin. X-ray of the left knee was obtained which demonstrated the hardware in the left knee was intact. I contacted his orthopedic surgeon Dr. Yrn Wilson who presented immediately to the intensive care unit to do an arthrocentesis of the left knee from which he removed purulent drainage. Patient is now n.p.o. in anticipation of going to surgery this afternoon to have an incision and drainage and washout of the left knee. Patient denies any shortness of breath or chest pain or chest pressure. He has no nausea or vomiting or abdominal symptoms. He is a non-smoker does not drink alcohol. Does have a history of coronary artery disease with 2 previous stents but is had no anginal symptoms. Preop EKG demonstrates normal sinus rhythm with first-degree AV block. No acute ischemic ST or T wave changes. Exam Narrative Exam Narrative: Obese male sitting up at the bedside commode. He is alert and oriented person place time circumstance. Lungs are clear to auscultation anteriorly posteriorly had some fine rales at the right base without wheezing or rhonchi. Heart is regular rate and rhythm without audible murmur rub or gallop. Abdomen is obese soft and nontender with normal active bowel sounds. Both legs are slightly edematous over the lower legs and feet and ankles. The left landers has a scabbed abrasion that is not draining any purulent discharge. There is induration erythema over the pretibial surface of the left leg the left knee also has a slight erythematous to purplish appearance to it is warm to the touch and is tender with any kind of motion. Left knee has a bandage over lateral aspect where synovial fluid was obtained by Dr. Wilson Objective Objective Clinical Data: Abnormal lab results 02/09/20 02/09/20 02/09/20 Range/Units 22:45 22:45 22:45 WBC (4.4-10.8) k/cumm Hgb (13.5-17.5) g/dL Hct (40.0-50.0) % RDW (11.8-14.1) % Plt Count (130-400) x1000/uL Absolute Neutrophils (1.2-6.7) k/cumm Absolute Lymphocytes (1.2-3.4) k/cumm Absolute Monocytes (0.11-0.7) k/cumm PT (9.3-11.0) sec D-Dimer (<500) ng/mlFEU Potassium (3.5-5.1) mmol/L Anion Gap 11.4 H (3-11) mmol/L BUN 44 H (7-18) mg/dL Creatinine 1.81 H (0.70-1.30) mg/dL Glucose 121 H (74-106) mg/dL Lactate 3.3 H* (0.6-1.4) mmol/L Calcium (8.5-10.1) mg/dL Magnesium (1.8-2.4) mg/dL AST 51 H (15-37) U/L Ammonia 10 L (11-32) umol/L Urine Glucose (Negative) mg/dL 02/09/20 02/09/20 02/09/20 Range/Units 22:45 22:45 23:55 WBC (4.4-10.8) k/cumm Hgb (13.5-17.5) g/dL Hct (40.0-50.0) % RDW 14.9 H (11.8-14.1) % Plt Count 119 L (130-400) x1000/uL Absolute Neutrophils 7.99 H (1.2-6.7) k/cumm Absolute Lymphocytes 0.23 L (1.2-3.4) k/cumm Absolute Monocytes (0.11-0.7) k/cumm PT 11.5 H (9.3-11.0) sec D-Dimer 1334 H (<500) ng/mlFEU Potassium (3.5-5.1) mmol/L Anion Gap (3-11) mmol/L BUN (7-18) mg/dL Creatinine (0.70-1.30) mg/dL Glucose (74-106) mg/dL Lactate (0.6-1.4) mmol/L Calcium (8.5-10.1) mg/dL Magnesium (1.8-2.4) mg/dL AST (15-37) U/L Ammonia (11-32) umol/L Urine Glucose 500 H (Negative) mg/dL 02/10/20 02/10/20 02/10/20 Range/Units 06:15 06:15 06:15 WBC 14.32 H D (4.4-10.8) k/cumm Hgb 13.1 L (13.5-17.5) g/dL Hct 39.5 L (40.0-50.0) % RDW 15.1 H (11.8-14.1) % Plt Count (130-400) x1000/uL Absolute Neutrophils 12.83 H (1.2-6.7) k/cumm Absolute Lymphocytes 0.49 L (1.2-3.4) k/cumm Absolute Monocytes 0.95 H (0.11-0.7) k/cumm PT (9.3-11.0) sec D-Dimer (<500) ng/mlFEU Potassium 5.2 H (3.5-5.1) mmol/L Anion Gap (3-11) mmol/L BUN 45 H (7-18) mg/dL Creatinine 2.11 H (0.70-1.30) mg/dL Glucose 132 H (74-106) mg/dL Lactate 2.0 H (0.6-1.4) mmol/L Calcium 8.2 L (8.5-10.1) mg/dL Magnesium 1.5 L (1.8-2.4) mg/dL AST 46 H (15-37) U/L Ammonia (11-32) umol/L Urine Glucose (Negative) mg/dL Vital Signs Temperature 36.8 C 02/10/20 05:19 Temperature Source Temporal Artery Scan 02/10/20 05:19 Pulse 82 02/10/20 06:15 Pulse 91 H 02/10/20 06:15 Respiratory Rate 17 02/10/20 06:15 Respiratory Effort Incrsd Work of Breathing 02/10/20 05:19 Respiratory Depth Deep 02/10/20 05:19 Respiratory Pattern Normal 02/10/20 05:19 Blood Pressure 125/62 02/10/20 06:15 Blood Pressure Mean 77 02/10/20 06:15 Blood Pressure Position Supine 02/09/20 22:08 Pulse Oximetry 98 02/10/20 06:15 Oxygen Delivery Method Nasal Cannula 02/10/20 05:19 Oxygen Flow Rate 2 02/10/20 05:19 Pain Level 6 02/10/20 02:45 Intake & Output 02/09/20 02/09/20 02/10/20 11:59 23:59 11:59 Intake Total 600 / 600 2150 / 2150 Balance 600 / 600 2150 / 2150 Weight 128.7 kg 131.8 kg Intake: IV 600 / 600 1550 / 1550 Oral 600 / 600 Other: Comment pt states occ buring r/t yeast infection on inside skin; Laboratory Results WBC 14.32 k/cumm (4.4-10.8) H D 02/10/20 06:15 RBC 4.54 m/cumm (4.50-6.00) 02/10/20 06:15 Hgb 13.1 g/dL (13.5-17.5) L 02/10/20 06:15 Hct 39.5 % (40.0-50.0) L 02/10/20 06:15 MCV 87.0 fL (80-95) 02/10/20 06:15 MCH 28.9 pg (27.0-33.0) 02/10/20 06:15 MCHC 33.2 g/dL (32.0-36.0) 02/10/20 06:15 RDW 15.1 % (11.8-14.1) H 02/10/20 06:15 Plt Count 133 x1000/uL (130-400) 02/10/20 06:15 MPV 9.5 fL (8.0-11.0) 02/10/20 06:15 Immature Gran % 0.3 % 02/10/20 06:15 Neutrophils % 89.6 02/10/20 06:15 Lymphocytes % 3.4 02/10/20 06:15 Monocytes % 6.6 02/10/20 06:15 Eosinophils % 0.0 02/10/20 06:15 Basophils % 0.1 02/10/20 06:15 Absolute Neutrophils 12.83 k/cumm (1.2-6.7) H 02/10/20 06:15 Absolute Lymphocytes 0.49 k/cumm (1.2-3.4) L 02/10/20 06:15 Absolute Monocytes 0.95 k/cumm (0.11-0.7) H 02/10/20 06:15 Absolute Eosinophils 0.00 k/cumm (0.0-0.7) 02/10/20 06:15 Absolute Basophils 0.01 k/cumm (0.0-0.2) 02/10/20 06:15 PT 11.5 sec (9.3-11.0) H 02/09/20 22:45 INR 1.1 (0.9-1.1) 02/09/20 22:45 APTT 25.1 sec (21.0-31.4) 02/09/20 22:45 D-Dimer 1334 ng/mlFEU (<500) H 02/09/20 22:45 Sodium 140 mmol/L (136-145) 02/10/20 06:15 Potassium 5.2 mmol/L (3.5-5.1) H 02/10/20 06:15 Chloride 105 mmol/L (98-107) 02/10/20 06:15 Carbon Dioxide 27.8 mmol/L (21.0-32.0) 02/10/20 06:15 Anion Gap 7.2 mmol/L (3-11) 02/10/20 06:15 BUN 45 mg/dL (7-18) H 02/10/20 06:15 Creatinine 2.11 mg/dL (0.70-1.30) H 02/10/20 06:15 Estimated GFR/1.73 m2 30.61 (mL/min/1.73m2) 02/10/20 06:15 Glucose 132 mg/dL (74-106) H 02/10/20 06:15 Lactate 2.0 mmol/L (0.6-1.4) H 02/10/20 06:15 Calcium 8.2 mg/dL (8.5-10.1) L 02/10/20 06:15 Magnesium 1.5 mg/dL (1.8-2.4) L 02/10/20 06:15 Total Bilirubin 0.9 mg/dL (0.2-1.0) 02/10/20 06:15 AST 46 U/L (15-37) H 02/10/20 06:15 ALT 49 U/L (16-63) 02/10/20 06:15 Alkaline Phosphatase 82 U/L (46-116) 02/10/20 06:15 Ammonia 10 umol/L (11-32) L 02/09/20 22:45 Troponin I < 0.05 ng/Ml (<0.06) 02/09/20 22:45 NT-Pro-B Natriuret Pep 169 pg/mL (<300) 02/09/20 22:45 Total Protein 6.6 g/dL (6.4-8.2) 02/10/20 06:15 Albumin 3.4 g/dL (3.4-5.0) 02/10/20 06:15 TSH 1.39 uIU/mL (0.36-3.74) 02/09/20 22:45 Urine Color Yellow (Yellow) 02/09/20 23:55 Urine Clarity Clear (Clear) 02/09/20 23:55 Urine pH 6.0 (5-8) 02/09/20 23:55 Ur Specific [place] 1.020 (1.005-1.025) 02/09/20 23:55 Urine Protein Negative mg/dL (Negative) 02/09/20 23:55 Urine Ketones Negative mg/dL (Negative) 02/09/20 23:55 Urine Blood Negative (Negative) 02/09/20 23:55 Urine Nitrite Negative (Negative) 02/09/20 23:55 Urine Bilirubin Negative (Negative) 02/09/20 23:55 Urine Urobilinogen 0.2 EU/dL (Up TO 0.2) 02/09/20 23:55 Ur Leukocyte Esterase Negative (Negative) 02/09/20 23:55 Urine Glucose 500 mg/dL (Negative) H 02/09/20 23:55
[2020-02-10 08:50] LABS: Clarity PURULENT; Source L KNEE
--- NOTE | 2020-02-10 08:57 | OCONE_ITS ---
Date of service: 02/10/20 Time of Service: 07:57 History of Present Illness History of Present Illness Chief Complaint: Left Knee Pain Narrative: Kurtis is a 75-year-old who presented last night to the emergency department increasing redness, warmth, and pain to the left leg. There was concern for cellulitis and a superficial infection of the left leg. He is status post left knee replacement on December 14. He was in the office about two weeks ago and was doing well with only some mild stiffness but no pain. There is a small stitch abscess which was removed in the office without any other surrounding findings. However, he does report that about 2 weeks ago he dropped a log against his left leg with a resultant abrasion. He has not been treating that with anything more than just regular hygiene and skin care. He does feel l molly this is the place which was the worst right at first but very quickly spread to the point where he was unable to ambulate without significant pain. This all worsened the matter of 24 to 48 hours. He has significant pain with moving the left leg. He denies any fever but he does have chills fatigue malaise. He does report some pain in the right knee both posteriorly and within the right knee itself. He has known arthritis of the right knee. He denies numbness or tingling. He denies any chest pain or shortness of breath. His has been sick with a cough. Consults Consult date: 02/10/20 Requesting physician: Colin Duke Consult Reason Left infected total knee Assessment and Plan Assessment and plan (1) Septic arthritis of knee, left: Status: Acute Assessment and plan: Kurtis is a 75-year-old who has the acute onset of left knee pain and a left knee infection. I saw him in the office 2 weeks ago where he was doing well at 6 weeks postop. He did have this injury to the anterior aspect of his left leg which was likely the source of his cellulitis which turned to be more fulminant and eventually spreading into the left knee. The aspiration was purulent with greater than 155,000 cells. Therefore, it is clearly infected and likely to be staph. We will continue to follow the culture results. However, the most important thing is to proceed with a debridement irrigation soon as possible. I reviewed this with Kurtis. He does have significant pain with moving of the knee which will be improved significantly with the surgery. The goal of the surgery be debride the knee, exchange polyethylene, and try to prevent against recurrent infection. I was very honest with Kurtis that sometimes this requires a two-stage procedure, meaning all of the metal has to be removed. However, I am hoping, given the acute nature of this, we can treat this with a single-stage debridement and component exchange. He will require at least 6 weeks of IV antibiotics. He does have some clinical features which are concerning such as an elevated white count, acute kidney injury, and elevated lactate. Therefore, continue antibiotics as per fairly reasonable at this time. He will be n.p.o. We will proceed with debridement this afternoon. Qualifiers: Septic arthritis organism: due to unspecified organism Qualified Code(s): M00.9 - Pyogenic arthritis, unspecified Review of Systems All systems reviewed & are unremarkable except as noted in HPI and below PFSH Medical History Abnormal LFTs (Chronic) Secondary to fartty infiltrate of the liver. Arthritis (Acute) CAD (coronary artery disease) (Chronic) Cellulitis (Acute) RIGHT LOWER LEG Diabetes (Chronic) History of seizures as a child (Acute) Hx of myocardial infarction (Acute) 10/2011 STRESS TEST COMPLETED 11/29/2019 Hyperlipidemia (Acute) Hypertension (Chronic) Renal insufficiency (Chronic) Surgical History colonoscopy (09/02/16) H/O heart artery stent (Chronic) X2 2013 History of tonsillectomy and adenoidectomy (Acute) History of total left knee replacement (TKR) (Acute 12/14/19) Dr. Wilson Family History Maternal Aunt Colon cancer Maternal Aunt Colon cancer Father , 70s Heart disease Social History Smoking/Tobacco Use Status: Former Tobacco Use Alcohol Intake: never Drug use: Never Substance use type: does not use Do you feel safe at home: Yes Do you feel safe in your relationship?: Yes Additional Social history: Lives with his Joellen. 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 Exam Narrative Exam Narrative: Kurtis is lying in the hospital bed. He is in no acute distress. He appears comfortable with the left leg slightly flexed and slightly externally rotated. Evaluation of left leg shows some induration over the pretibial area as well as a large abrasion with a hemorrhagic scab in place. There is some thinning of the skin in this area with redness seen around the entire anterior aspect the left leg extending proximally to the knee level. Superior to the patella there is no redness noted. There is a palpable effusion and pain with palpation. Pain with palpation exist from the entire length of the tibia. Most of this pain is anteriorly. There is some mild pain posteriorly. There is mild pain to palpation proximal thigh but exquisite pain to palpation around the joint line of the left knee. The incision itself is intact without signs of dehiscence. He is able tolerate range of motion from 20 to 80 degrees but any motion past this causes exquisite pain which he points to the knee. He is able to actively dorsiflex and plantarflex the left ankle as well as extend and flex the great toe. Sensation is intact light touch of the superficial and deep peroneal nerves and tibial nerve. Palpable PT pulse. Results Last Vital Signs Temp 36.8 C 02/10/20 05:19 Pulse 87 02/10/20 08:01 Resp 16 02/10/20 08:50 BP 126/45 L 02/10/20 08:01 Pulse Ox 93 L 02/10/20 08:50 Labs Result diagrams: 02/10/20 06:15 02/10/20 06:15 Labs: Laboratory Results - last 24 hr 02/09/20 02/09/20 02/09/20 22:45 22:45 22:45 WBC RBC Hgb Hct MCV MCH MCHC RDW Plt Count MPV Immature Gran % Neutrophils % Lymphocytes % Monocytes % Eosinophils % Basophils % Absolute Neutrophils Absolute Lymphocytes Absolute Monocytes Absolute Eosinophils Absolute Basophils PT INR APTT D-Dimer Sodium 141 Potassium 4.4 Chloride 104 Carbon Dioxide 25.6 Anion Gap 11.4 H BUN 44 H Creatinine 1.81 H Estimated GFR/1.73 m2 36.54 Glucose 121 H Lactate 3.3 H* Calcium 8.9 Magnesium Total Bilirubin 0.5 AST 51 H ALT 61 Alkaline Phosphatase 103 Ammonia 10 L Troponin I < 0.05 NT-Pro-B Natriuret Pep 169 Total Protein 7.2 Albumin 3.8 TSH 1.39 Urine Color Urine Clarity Urine pH Ur Specific Stephens Urine Protein Urine Ketones Urine Blood Urine Nitrite Urine Bilirubin Urine Urobilinogen Ur Leukocyte Esterase Urine Glucose 02/09/20 02/09/20 02/09/20 22:45 22:45 23:55 WBC 8.58 RBC 5.20 Hgb 14.5 Hct 44.2 MCV 85.0 MCH 27.9 MCHC 32.8 RDW 14.9 H Plt Count 119 L MPV 10.0 Immature Gran % 0.2 Neutrophils % 93.2 Lymphocytes % 2.7 Monocytes % 3.6 Eosinophils % 0.2 Basophils % 0.1 Absolute Neutrophils 7.99 H Absolute Lymphocytes 0.23 L Absolute Monocytes 0.31 Absolute Eosinophils 0.02 Absolute Basophils 0.01 PT 11.5 H INR 1.1 APTT 25.1 D-Dimer 1334 H Sodium Potassium Chloride Carbon Dioxide Anion Gap BUN Creatinine Estimated GFR/1.73 m2 Glucose Lactate Calcium Magnesium Total Bilirubin AST ALT Alkaline Phosphatase Ammonia Troponin I NT-Pro-B Natriuret Pep Total Protein Albumin TSH Urine Color Yellow Urine Clarity Clear Urine pH 6.0 Ur Specific Stephens 1.020 Urine Protein Negative Urine Ketones Negative Urine Blood Negative Urine Nitrite Negative Urine Bilirubin Negative Urine Urobilinogen 0.2 Ur Leukocyte Esterase Negative Urine Glucose 500 H 02/10/20 02/10/20 02/10/20 06:15 06:15 06:15 WBC 14.32 H D RBC 4.54 Hgb 13.1 L Hct 39.5 L MCV 87.0 MCH 28.9 MCHC 33.2 RDW 15.1 H Plt Count 133 MPV 9.5 Immature Gran % 0.3 Neutrophils % 89.6 Lymphocytes % 3.4 Monocytes % 6.6 Eosinophils % 0.0 Basophils % 0.1 Absolute Neutrophils 12.83 H Absolute Lymphocytes 0.49 L Absolute Monocytes 0.95 H Absolute Eosinophils 0.00 Absolute Basophils 0.01 PT INR APTT D-Dimer Sodium 140 Potassium 5.2 H Chloride 105 Carbon Dioxide 27.8 Anion Gap 7.2 BUN 45 H Creatinine 2.11 H Estimated GFR/1.73 m2 30.61 Glucose 132 H Lactate 2.0 H Calcium 8.2 L Magnesium 1.5 L Total Bilirubin 0.9 AST 46 H ALT 49 Alkaline Phosphatase 82 Ammonia Troponin I NT-Pro-B Natriuret Pep Total Protein 6.6 Albumin 3.4 TSH Urine Color Urine Clarity Urine pH Ur Specific Stephens Urine Protein Urine Ketones Urine Blood Urine Nitrite Urine Bilirubin Urine Urobilinogen Ur Leukocyte Esterase Urine Glucose Procedures Joint Aspiration/Injection Joint Asp./Inject. 1: Time out performed: Yes Side of body: left Joint aspirated: knee Ultrasound guidance: No Skin prep: Chlorhexidine Needle size used: 18G Fluid obtained: purulent Total fluid obtained (ml): 60 Patient tolerated procedure: well Complications: none Additional comments: Fluid was sent for cell count and culture
[2020-02-10] MEDS: Aspirin E.C. 81 MG TABEC PO (09:12)
[2020-02-10] MEDS: Carvedilol 12.5 MG TAB 25 MG PO ×2 (09:12→20:54)
[2020-02-10] MEDS: Pantoprazole 40 MG TABCR PO (09:12)
[2020-02-10] MEDS: Normal Saline 1,000 ML 150 ML IV (09:13)
[2020-02-10] MEDS: Nystatin POWDER 60 GM JAR TP ×2 (09:14→20:58)
[2020-02-10 09:16] LABS: Mononuclear Cells 5 % (0-0); Polynuclear Cells 95 % (0-0)
[2020-02-10 10:23] LABS: Procalcitonin 7.3 ng/mL
[2020-02-10 10:39] LABS: Troponin I 0.05 ng/Ml (<0.06)
[2020-02-10] MEDS: MAGNESIUM SULFATE 2 GM/50 ML BAG IVPB (10:50)
--- NOTE | 2020-02-10 11:50 | W.NUTCONSULT ---
Date of service: 02/10/20 Time of Service: 11:50 Nutritional Consult ASSESSMENT: 75 year old male admitted with septic right knee (s/p TKR 12/14/19). BMI of 42 indicates morbid obesity. Currently NPO. Labs indicate elevated BUN, Cre, K and blood sugars, treated with iv fluids and insulin. Dm consult pending. Currently NPO. Will follow and adjust meal plan as warranted. Currently does not appear to be at right for nutritional decline. MONITORING AND EVALUATION: diet advancement, weight, po intake, labs Time Spent in Nutritional Counseling and Treatment: 0 time spent face to face
--- NOTE | 2020-02-10 12:02 | PHA.ADMREV ---
Pharmacy Clinical Review - Admission Clinical Review (Last Reviewed 02/10/20 @ 09:57 by Yrn Wilson MD) Septic arthritis of knee, left (Acute) Acute kidney injury (nontraumatic) (Acute) Discharge planning issues (Acute) DVT prophylaxis (Acute) Sepsis (Acute) Cellulitis (Acute) History of total left knee replacement (TKR) (Acute 12/14/19) amlodipine besylate [From Norvasc] Adverse Reaction (Mild, Unverified 01/27/20 09:50) edema enalapril maleate [From Vasotec] Adverse Reaction (Mild, Unverified 01/27/20 09:50) cough enalaprilat dihydrate [From Vasotec] Adverse Reaction (Mild, Unverified 01/27/20 09:50) cough pravastatin sodium [From Pravachol] Adverse Reaction (Mild, Unverified 01/27/20 09:50) myalgia rosuvastatin [From Crestor] Adverse Reaction (Mild, Unverified 01/27/20 09:50) Other (See Comment) Height 5 ft 9 in Weight 131.8 kg - Renal Dosing Renal Dosing: BUN 45 mg/dL (7-18) H 02/10/20 06:15 Creatinine 2.11 mg/dL (0.70-1.30) H 02/10/20 06:15 Medications needing adjustments: Intervened (Gabapentin dose 1500mg/day may need adjustment if renal function worsens. Zosyn dose is 2.25mg iv [id number] Vancomycin dose adjusted by RPh) - Anticoagulation Anticoagulation: Hgb 13.1 g/dL (13.5-17.5) L 02/10/20 06:15 Hct 39.5 % (40.0-50.0) L 02/10/20 06:15 Plt Count 133 x1000/uL (130-400) 02/10/20 06:15 INR 1.1 (0.9-1.1) 02/09/20 22:45 Creatinine 2.11 mg/dL (0.70-1.30) H 02/10/20 06:15 Medications: Aspirin - Opiate Usage Evaluate Pain Scale/Pains Meds: Reviewed (Oxycodone 5mg Q4H Prn) Scheduled Bowel Reg ordered if on Opiates?: No (will speak ) - Relevant Labs Sodium 140 mmol/L (136-145) 02/10/20 06:15 Potassium 5.2 mmol/L (3.5-5.1) H 02/10/20 06:15 Chloride 105 mmol/L (98-107) 02/10/20 06:15 Magnesium 1.5 mg/dL (1.8-2.4) L 02/10/20 06:15 Electrolytes, C-Reactive P, ESR: Reviewed (Mag- 1.5 on PO for replacement) - Antimicrobial Stewardship Antibiotic appropriateness: Reviewed (Zosyn and Vancomycin ordered as dosed appropriately. Probable Gram (+) Staph) Culture review/Resistance: Reviewed - DM Control DM Control: Glucose 132 mg/dL (74-106) H 02/10/20 06:15 Finger Stick Blood Glucose 141 Finger Stick Blood Glucose 131 Insulin Dosing: Reviewed (Aspart(sliding scale and Lispro-home dose substituted) and Lantus home dose) ordred) - Heart Failure/PA Heart Failure/PA: Troponin I Cancelled 02/10/20 13:00 NT-Pro-B Natriuret Pep 169 pg/mL (<300) 02/09/20 22:45 - BP Control BP Control: Blood Pressure [Right Arm] 99/56 Blood Pressure 126/45 Blood Pressure 129/57 Blood Pressure 126/51 Blood Pressure 117/51 Blood Pressure 125/62 Blood Pressure 118/57 Blood Pressure 130/57 Blood Pressure 114/50 Blood Pressure 120/56 Blood Pressure 131/68 Blood Pressure 121/62 Blood Pressure 124/55 Blood Pressure 107/52 Blood Pressure 103/49 Blood Pressure 130/56 Blood Pressure 98/50 Blood Pressure 113/70 Blood Pressure 99/56 Blood Pressure 81/50 Blood Pressure 94/49 Blood Pressure 92/40 If elevated: Reviewed (Coreg (home med) ordered, Doxazosin, HCTZ & Losartan not ordered) - QTc Review If Elevated: Reviewed (QTc-392 no intervention needed) - IV to PO Switch IV Medications: Reviewed (too early, new admit) - Home Meds Home Med List reviewed: Reviewed (Not ordered Doxazosin, Jardiance, HCTZ, Losartan, NTG, Naproxen, Flonase) - Current meds Current Medication Order Review: Reviewed (Gabapentin may need adjustment if renal function worsens)
[2020-02-10 12:28] LABS: Lactate 2.4 mmol/L (0.6-1.4)
[2020-02-10 12:40] LABS: Anion Gap 0 mmol/L (3-11); BUN 40 mg/dL (7-18); CREATININE 1.73 mg/dL (0.70-1.30); Calcium 9.5 mg/dL (8.5-10.1); Chloride 102 mmol/L (98-107); Estimated GFR 38.49 (mL/min/1.73m2); Glucose 145 mg/dL (74-106); Sodium 126 mmol/L (136-145)
[2020-02-10] MEDS: Insulin Aspart 300 UNITS/3 ML PEN SC ×2 (12:43→18:01)
--- NOTE | 2020-02-10 13:21 | PDOC.CMIN ---
- If Service Date Differs Date of service: 02/10/20 Time of Service: 13:21 Care Management Initial Assess REASON FOR HOSPITALIZATION:: Sepsis PAST MEDICAL HISTORY/PAST SURGICAL HISTORY:: Arthritis, CAD, Cellulitis, Diabetes, hx of seizures in childhood, [place] 2010, hyperlipidemia, hypertension, renal insufficiency, colonoscopy, hx of tonsillectomy and adenoidectomy PREVIOUS FUNCTIONAL STATUS/SOCIAL/FAMILY SUPPORTS:: Kurtis resides in [place] with his , Jessica. Their daughter, Amrita and grandchildren also reside in [place]. 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 He is independent at baseline with supportive family and friends. CURRENT FUNCTIONAL STATUS:: Kurtis was sitting up in his chair when CM met with him. He reported that he was feeling a bit better, now that he was in a chair. He stated that he had trouble sleeping last night because of the pressure on his knee. Per RN, he is scheduled to go to the OR today at 1pm. Kurtis stated that he will need six weeks of abx. CM went over possible options for him to stay at [facility] vs Home with HH infusions, but it may depend on the frequency of administration of medication. CM will continue to follow. ADVANCE DIRECTIVES:: On file, Jessica listed as agent. Has patient been provided with information about the portal?: Yes Did the patient sign up for the portal?: Yes (previously signed up) CODE STATUS:: DNR/DNI INSURANCE COVERAGE / FINANCIAL ISSUES:: [facility] [place]/ Financial Assistance 100% CURRENT HOME/COMMUNITY SERVICES/EQUIPMENT:: Kurtis recently had HH PT, but was discharged. He has a home CPAP unit which his will be bringing in for him. PRIMARY CARE PHYSICIAN:: Patrice Camejo POTENTIAL DISCHARGE NEEDS:: Evaluations for further needs, possible home IV abx through [facility], follow up appointments PATIENT/FAMILY EDUCATION NEEDS:: Review discharge instructions regarding activity levels and medications, discussion of self care needs including ask me three ANTICIPATED BARRIERS TO DISCHARGE:: None identified at this time. TRANSPORTATION:: Kurtis will be driven home via private vehicle by family. PLAN:: Kurtis is going to the OR today to have his wound washed out. He may need six weeks of IV abx, which he might be able to have at home through [facility]. CM will discuss the plan with Ortho to determine what is recommended. CM will continue to follow.
[2020-02-10] MEDS: Lactated Ringers 1,000 ML 100 ML IV ×3 (13:45→22:40)
[2020-02-10 14:28] LABS: Troponin I 0.06 ng/Ml (<0.06)
[2020-02-10] MEDS: Bupivacaine 0.25% Pres-Free 30 ML VIAL (15:24)
[2020-02-10] MEDS: Ketorolac 30 MG/ML VIAL (15:25)
--- NOTE | 2020-02-10 17:29 | W.PM.OP ---
Date of service: 02/10/20 Time of Service: 16:29 Operative Note Operative Note DATE OF PROCEDURE: 02/10/20 PRE-OP DIAGNOSIS: Left Knee Prosthetic Infection POST-OP DIAGNOSIS: same PROCEDURE: Left Knee Debridement, Polyethylene Exchange SURGEON: Yrn Wilson ACTING INSTRUCTOR: Kris Livingston ANESTHESIA: GETA and spinal ESTIMATED BLOOD LOSS: 300 PATHOLOGY: none sent TOURNIQUET TIME: 0 COMPLICATIONS: None Patient was transported to: ICU Patient's condition: stable Implants: 1. Depuy Attune 7x6mm Fixed, Stabilized Poly Indications: Kurtis is a 75-year-old who presented last night with the acute onset of pain and swelling of the left knee. I aspirated this knee this morning and it revealed gross purulence and an obvious septic arthritis. He also showed signs of sepsis and therefore I urged urgent debridement and irrigation of the left knee. I reviewed this with Kurtis. I discussed the risk to include bleeding, continued infection, pain, stiffness, component loosening, need for repeat procedures including a two-stage revision, blood clot, cardiopulmonary demise, damage to nerves and vessels. Despite these risks, he elected to proceed. Findings: There is gross purulence throughout the knee. There was a small chronic rupture of the arthrotomy. There is very little sign that this was a chronic infection with minimal necrosis, tissue damage, or purulent tissue. The knee was irrigated and aggressive synovectomy performed. Vancomycin beads were left inside the wound. The polyethylene was exchanged. Procedure Description: Kurtis was greeted in the PACU area where the correct side was identified and marked. The consent was reviewed with the patient and signed. The history and physical was updated. All questions were answered. Kurtis was taken back to the operating room. A general anesthetic was then administered. The patient was placed into the supine position on the operating room table. No tourniquet was used. Posts were placed for positioning during the procedure. All bony prominences were well padded. Prophylactic antibiotics in the form of cefazolin were administered after repeat fluid cultures were obtained. The left leg was then prepped with Chloraprep and draped in a standard fashion with impervious stockinette and extremity drape. A second prep with Chloraprep was performed prior to placing Ioband. A timeout to confirm correct identity, side and site, procedure, allergies, anesthesia, and medical concerns was performed. I then aspirated the knee and send this aspirate to the lab. Antibiotics were then started. With the knee in some flexion, the previous midline incision was used and the skin was incised. Full thickness skin flaps were raised once the extensor mechanism was encountered. These were raised medially and laterally. Any bleeding was controlled with electrocautery. There was a notable defect of the arthrotomy from the midportion of the patella through the distal aspect of the quadriceps. There was scarring bridging the gap which is quite dense but no obvious defect. Gross purulence was encountered at this level. There is no significant necrotic tissue apparent. Some synovial samples were then sent to the lab for culture. Once the extensor mechanism was fully exposed, the medial parapatellar arthrotomy was extended and completed proximally and distally. Previous sutures were removed.. All bleeding from the arthrotomy and the geniculate arteries was coagulated. A medial subperiosteal peel was performed with electrocautery to the midcoronal plane. A complete synovectomy was then performed. Using Allis and Rahel clamps, the synovium from the overlying retinaculum and extensor mechanism. This was resected both bluntly and sharply. Bleeding was cauterized. This was taken around both medially and laterally and underneath the patellar tendon and within the medial and lateral gutters. This tissue appeared fairly normal and was without significant necrosis. A rondure was used to remove any excess synovium and soft tissue from within the knee. The knee was then flexed and the polyethylene was removed. A posterior synovectomy was performed with a rondure. The wound was then thoroughly irrigated with Betadine solution. This Betadine solution was then allowed to sit in the wound for 3 minutes. After this 3 minutes, the Betadine was irrigated away with normal saline. Once again, the wound was inspected for any signs of redness synovium or necrotic tissue. There is no gross purulence, no necrotic tissue, no excess synovium. An additional 3 L of normal saline was rinsed through the left knee for complete irrigation. The soft tissues of the knee were injected with a mixture of 50 cc of 0.25% bupivacaine, 30 mg of ketorolac, and 20 cc of Exparel. Stimulant calcium sulfate beads were prepared on the back table with 1 g of vancomycin. Once they were ready, they were also placed into the suprapatellar pouch and into the gutters of the knee. The knee was then closed. The arthrotomy was reapproximated with a #1 PDS impregnated with antibiotics. The knee was once again irrigated and the soft tissues and the subcutaneous tissues were reapproximated with a 2-0 Monocryl in interrupted fashion. Skin was closed with a running 3-0 Monocryl in subcuticular fashion. A nahid negative pressure dressing was then applied with good suction and seal. A total thigh Eduin wrap was then wrapped around the left leg and a 2 x 2 Mepilex dressing was placed on the previous abrasion of the anterior tibia. Kurtis did have some periods of hypotension during the case requiring norepinephrine but at the end the case was titrated off. He was stable but still in a guarded condition given his sepsis from the septic left prosthetic knee. He will resume aspirin for DVT prophylaxis on discharge while he is in the hospital I would recommend Lovenox. He is weightbearing as tolerated with no restrictions. He should use an assistive device while in the hospital. The nahid dressing will stay in place for 1 week. I will continue to follow his cultures and work with hospitalist team to narrow his antibiotics. I would recommend to have rifampin 300 mg twice daily on board given the retention of the prosthesis and the likelihood of a staph organism.
[2020-02-10] MEDS: Acetaminophen 500 MG TAB 1000 MG PO (17:55)
[2020-02-10] MEDS: Insulin Aspart 300 UNITS/3 ML PEN 30 UNITS SC (18:00)
[2020-02-10 19:03] LABS: Anion Gap 8.5 mmol/L (3-11); BUN 47 mg/dL (7-18); CO2 25.5 mmol/L (21.0-32.0); CREATININE 2.14 mg/dL (0.70-1.30); Calcium 7.5 mg/dL (8.5-10.1); Chloride 104 mmol/L (98-107); Estimated GFR 30.12 (mL/min/1.73m2); Glucose 183 mg/dL (74-106); Potassium 4.5 mmol/L (3.5-5.1); Sodium 138 mmol/L (136-145)
[2020-02-10] MEDS: Gabapentin 300 MG CAP 900 MG PO (20:55)
[2020-02-10] MEDS: Magnesium Oxide 400 MG TAB PO (20:55)
[2020-02-10] MEDS: Insulin Glargine 300 UNITS/3 ML PEN 80 UNITS SC (20:58)
[2020-02-11] VITALS (64 sets, daily range): BP systolic 86–152; BP diastolic 46–68; PULSE 69–91; RESP 9–22; TEMP 36.4–38.4; O2SAT 86–98
[2020-02-11] MEDS: PIPERACILLIN/TAZO 2.25 GM in Normal Saline 50 ML IVPB ×4 (03:42→21:56)
[2020-02-11] MEDS: Acetaminophen 500 MG TAB 1000 MG PO ×2 (04:24→13:44)
[2020-02-11] MEDS: Lactated Ringers 1,000 ML 100 ML IV (04:29)
[2020-02-11] MEDS: rifAMPin 300 MG CAP PO ×2 (05:54→20:15)
[2020-02-11 06:44] LABS: Lactate 1.7 mmol/L (0.6-1.4)
[2020-02-11 06:51] LABS: Abs Immature Grans 0.02 k/cumm (0.0-0.09); Absolute Basophil Count 0.01 k/cumm (0.0-0.2); Absolute Eosinophil Count 0.02 k/cumm (0.0-0.7); Absolute Lymphocyte Count 0.61 k/cumm (1.2-3.4); Basophils % 0.1; Eosinophils % 0.2; HCT 31.5 % (40.0-50.0); HGB 10.1 g/dL (13.5-17.5); Immature Grans % 0.2 %; Lymphocytes % 7.4; Mean Corp. HGB Concentration 32.1 g/dL (32.0-36.0); Mean Corpuscular Hemoglobin 28.2 pg (27.0-33.0); Mean Platelet Volume 9.5 fL (8.0-11.0); Monocytes % 8.5; Neutrophils % 83.6; Platelet Count 124 x1000/uL (130-400); RBC 3.58 m/cumm (4.50-6.00); RBC Distribution Width 15.6 % (11.8-14.1); White Blood Cell Count 8.21 k/cumm (4.4-10.8)
[2020-02-11 06:56] LABS: Absolute Neutrophil Count 6.86 k/cumm (1.2-6.7)
[2020-02-11 07:11] LABS: BUN 48 mg/dL (7-18); C-Reactive Protein 20.32 mg/dL (0.0-0.3); CREATININE 2.01 mg/dL (0.70-1.30); Calcium 7.8 mg/dL (8.5-10.1); Chloride 104 mmol/L (98-107); Estimated GFR 32.37 (mL/min/1.73m2); Glucose 156 mg/dL (74-106); Magnesium 1.7 mg/dL (1.8-2.4); Potassium 4.1 mmol/L (3.5-5.1); Sodium 136 mmol/L (136-145); Troponin I 0.06 ng/Ml (<0.06)
[2020-02-11] MEDS: oxyCODONE 5 MG TAB PO ×2 (08:08→19:23)
--- NOTE | 2020-02-11 08:16 | PDOC.CMPRO ---
- If Service Date Differs Date of service: 02/11/20 Time of Service: 08:16 Care Management Progress Note S/O:Kurtis remains acute. Kurtis was reviewed at multidisciplinary rounds, length of treatment with IV abx to be determined. A:Kurtis is a 75-year-old admitted with sepsis, with infected left total knee. P: Kurtis remains inpatient course and length of treatment to be determined. He is currently receiving multiple IV abx pending wound cultures. Disposition to be determined. CM to continue to assess for discharge needs including extended need for IV antibiotics.
--- NOTE | 2020-02-11 08:27 | W.PM.PROGNOT ---
Date of Service Date of service: 02/11/20 Time of Service: 12:06 Assessment and Plan Assessment and plan (1) Sepsis: Status: Resolved Assessment and plan: Source: periprosthetic infection of L knee. S/p washout by Dr Wilson yesterday. Since then, is doing much better. Continue empiric vanco/zosyn/rifampin until culture results known. Transfer out of ICU. Qualifiers: Sepsis type: sepsis due to unspecified organism Sepsis acute organ dysfunction status: with acute organ dysfunction Severe sepsis acute organ dysfunction type: acute renal failure Acute renal failure type: unspecified Severe sepsis shock status: without septic shock Qualified Code(s): A41.9 - Sepsis, unspecified organism; R65.20 - Severe sepsis without septic shock; N17.9 - Acute kidney failure, unspecified (2) Septic arthritis of knee, left: Status: Acute Assessment and plan: As above Qualifiers: Septic arthritis organism: due to unspecified organism Qualified Code(s): M00.9 - Pyogenic arthritis, unspecified (3) History of total left knee replacement (TKR): Status: Acute Assessment and plan: As above (4) Benign hypertension: Status: Chronic Assessment and plan: Continue to hold antihypertensives with the excepction of lowered dose of coreg/doxazosin. (5) Diabetes mellitus type 2: Status: Chronic Assessment and plan: Continue Currently written basal bolus insulin. (6) Acute kidney injury (nontraumatic): Status: Acute Assessment and plan: Improved slightly with IVF. Continue to monitor. Has a barraza. (7) Discharge planning issues: Status: Acute Assessment and plan: DNR/DNI Ok to move out of ICU. Care is being transitioned to Dr Wilson. (8) DVT prophylaxis: Status: Acute Assessment and plan: renally dosed lovenox SC Subjective Subjective Interval history since last seen: Feels better. Has no pain in the L knee. Denies dizziness, chest pain, shortness of breath, nausea, abdominal pain. States his legs are normally this level of swollen. Temp 38 overnight; none since. Responded to tylenol. 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 SBP's - good low good. Being moved out of the ICU. Exam Narrative Exam Narrative: General: Very pleasant obese male, A&Ox3, laying comfortably in bed HEENT: EOMI, MMM Heart: RRR, distant heart sounds Lungs: CTAB Abdomen: soft, nontender, nondistended Extremities: LLE dressed; ice applied. Symmetric edema BLE's, minimally pitting. Objective Objective Clinical Data: Abnormal lab results 02/10/20 02/10/20 02/10/20 Range/Units 06:15 08:00 12:07 RBC (4.50-6.00) m/cumm Hgb (13.5-17.5) g/dL Hct (40.0-50.0) % RDW (11.8-14.1) % Plt Count (130-400) x1000/uL Absolute Neutrophils (1.2-6.7) k/cumm Absolute Lymphocytes (1.2-3.4) k/cumm Sodium 126 L D (136-145) mmol/L Potassium 5.2 H (3.5-5.1) mmol/L Anion Gap 0 L (3-11) mmol/L BUN 45 H 40 H (7-18) mg/dL Creatinine 2.11 H 1.73 H (0.70-1.30) mg/dL Glucose 132 H 145 H (74-106) mg/dL Lactate (0.6-1.4) mmol/L Calcium 8.2 L (8.5-10.1) mg/dL Magnesium 1.5 L (1.8-2.4) mg/dL AST 46 H (15-37) U/L C-Reactive Protein (0.0-0.3) mg/dL Fluid WBC 200263 H (0-0) /MM3 Fluid Mononuclear Cell 5 H (0-0) % Fl Polymorphonucl Cell 95 H (0-0) % 02/10/20 02/10/20 02/11/20 Range/Units 12:07 18:35 06:30 RBC (4.50-6.00) m/cumm Hgb (13.5-17.5) g/dL Hct (40.0-50.0) % RDW (11.8-14.1) % Plt Count (130-400) x1000/uL Absolute Neutrophils (1.2-6.7) k/cumm Absolute Lymphocytes (1.2-3.4) k/cumm Sodium (136-145) mmol/L Potassium (3.5-5.1) mmol/L Anion Gap (3-11) mmol/L BUN 47 H 48 H (7-18) mg/dL Creatinine 2.14 H 2.01 H (0.70-1.30) mg/dL Glucose 183 H 156 H (74-106) mg/dL Lactate 2.4 H* (0.6-1.4) mmol/L Calcium 7.5 L 7.8 L (8.5-10.1) mg/dL Magnesium 1.7 L (1.8-2.4) mg/dL AST (15-37) U/L C-Reactive Protein 20.32 H (0.0-0.3) mg/dL Fluid WBC (0-0) /MM3 Fluid Mononuclear Cell (0-0) % Fl Polymorphonucl Cell (0-0) % 02/11/20 02/11/20 Range/Units 06:30 06:30 RBC 3.58 L (4.50-6.00) m/cumm Hgb 10.1 L D (13.5-17.5) g/dL Hct 31.5 L D (40.0-50.0) % RDW 15.6 H (11.8-14.1) % Plt Count 124 L (130-400) x1000/uL Absolute Neutrophils 6.86 H (1.2-6.7) k/cumm Absolute Lymphocytes 0.61 L (1.2-3.4) k/cumm Sodium (136-145) mmol/L Potassium (3.5-5.1) mmol/L Anion Gap (3-11) mmol/L BUN (7-18) mg/dL Creatinine (0.70-1.30) mg/dL Glucose (74-106) mg/dL Lactate 1.7 H (0.6-1.4) mmol/L Calcium (8.5-10.1) mg/dL Magnesium (1.8-2.4) mg/dL AST (15-37) U/L C-Reactive Protein (0.0-0.3) mg/dL Fluid WBC (0-0) /MM3 Fluid Mononuclear Cell (0-0) % Fl Polymorphonucl Cell (0-0) % Vital Signs Temperature 36.4 C L 02/11/20 07:35 Temperature Source Temporal Artery Scan 02/11/20 07:35 Pulse 71 02/11/20 07:35 Pulse 76 02/11/20 06:10 Respiratory Rate 20 02/11/20 06:10 Respiratory Effort Non-Labored 02/11/20 07:35 Respiratory Depth Normal 02/11/20 07:35 Respiratory Pattern Normal 02/11/20 07:35 Blood Pressure 112/50 L 02/11/20 07:35 Blood Pressure Mean 70 02/11/20 07:35 Blood Pressure Position Supine 02/11/20 07:35 Pulse Oximetry 94 L 02/11/20 07:35 Oxygen Delivery Method Room Air 02/11/20 07:35 Oxygen Flow Rate 0 02/11/20 07:35 Pain Level 6 02/11/20 08:08 Intake & Output 02/10/20 02/10/20 02/11/20 11:59 23:59 11:59 Intake Total 2905 / 6067.917 2581.250 / 6067.917 1563.334 / 1563.334 Output Total 700 / 1400 700 / 1400 850 / 850 Balance 2205 / 4667.917 1881.250 / 4667.917 713.334 / 713.334 Weight 131.8 kg Intake: IV 2305 / 5227.917 2341.250 / 5227.917 1163.334 / 1163.334 Oral 600 / 840 240 / 840 400 / 400 Output: Urine 700 / 1200 500 / 1200 850 / 850 Estimated Blood Loss 200 / 200 Other: Urine Color Dark Luca Yellow Light Luca Straw Urine Appearance Clear Clear Clear Urine Odor Normal Comment Pt reports occassional burning when urinating that patient reports is from yeast. Nystatin ordered for reddened scotum barraza to gravity with luca urine Barraza in place and draining Voiding Methods Urinal Laboratory Results WBC 8.21 k/cumm (4.4-10.8) D 02/11/20 06:30 RBC 3.58 m/cumm (4.50-6.00) L 02/11/20 06:30 Hgb 10.1 g/dL (13.5-17.5) L D 02/11/20 06:30 Hct 31.5 % (40.0-50.0) L D 02/11/20 06:30 MCV 88.0 fL (80-95) 02/11/20 06:30 MCH 28.2 pg (27.0-33.0) 02/11/20 06:30 MCHC 32.1 g/dL (32.0-36.0) 02/11/20 06:30 RDW 15.6 % (11.8-14.1) H 02/11/20 06:30 Plt Count 124 x1000/uL (130-400) L 02/11/20 06:30 MPV 9.5 fL (8.0-11.0) 02/11/20 06:30 Immature Gran % 0.2 % 02/11/20 06:30 Neutrophils % 83.6 02/11/20 06:30 Lymphocytes % 7.4 02/11/20 06:30 Monocytes % 8.5 02/11/20 06:30 Eosinophils % 0.2 02/11/20 06:30 Basophils % 0.1 02/11/20 06:30 Absolute Neutrophils 6.86 k/cumm (1.2-6.7) H 02/11/20 06:30 Absolute Lymphocytes 0.61 k/cumm (1.2-3.4) L 02/11/20 06:30 Absolute Monocytes 0.70 k/cumm (0.11-0.7) 02/11/20 06:30 Absolute Eosinophils 0.02 k/cumm (0.0-0.7) 02/11/20 06:30 Absolute Basophils 0.01 k/cumm (0.0-0.2) 02/11/20 06:30 PT 11.5 sec (9.3-11.0) H 02/09/20 22:45 INR 1.1 (0.9-1.1) 02/09/20 22:45 APTT 25.1 sec (21.0-31.4) 02/09/20 22:45 D-Dimer 1334 ng/mlFEU (<500) H 02/09/20 22:45 Sodium 136 mmol/L (136-145) 02/11/20 06:30 Potassium 4.1 mmol/L (3.5-5.1) 02/11/20 06:30 Chloride 104 mmol/L (98-107) 02/11/20 06:30 Carbon Dioxide 23.0 mmol/L (21.0-32.0) 02/11/20 06:30 Anion Gap 9.0 mmol/L (3-11) 02/11/20 06:30 BUN 48 mg/dL (7-18) H 02/11/20 06:30 Creatinine 2.01 mg/dL (0.70-1.30) H 02/11/20 06:30 Estimated GFR/1.73 m2 32.37 (mL/min/1.73m2) 02/11/20 06:30 Glucose 156 mg/dL (74-106) H 02/11/20 06:30 Lactate 1.7 mmol/L (0.6-1.4) H 02/11/20 06:30 Calcium 7.8 mg/dL (8.5-10.1) L 02/11/20 06:30 Magnesium 1.7 mg/dL (1.8-2.4) L 02/11/20 06:30 Total Bilirubin 0.9 mg/dL (0.2-1.0) 02/10/20 06:15 AST 46 U/L (15-37) H 02/10/20 06:15 ALT 49 U/L (16-63) 02/10/20 06:15 Alkaline Phosphatase 82 U/L (46-116) 02/10/20 06:15 Ammonia 10 umol/L (11-32) L 02/09/20 22:45 Troponin I 0.06 ng/Ml (<0.06) 02/11/20 06:30 C-Reactive Protein 20.32 mg/dL (0.0-0.3) H 02/11/20 06:30 NT-Pro-B Natriuret Pep 169 pg/mL (<300) 02/09/20 22:45 Total Protein 6.6 g/dL (6.4-8.2) 02/10/20 06:15 Albumin 3.4 g/dL (3.4-5.0) 02/10/20 06:15 Procalcitonin 7.3 ng/mL 02/10/20 06:15 TSH 1.39 uIU/mL (0.36-3.74) 02/09/20 22:45 Urine Color Yellow (Yellow) 02/09/20 23:55 Urine Clarity Clear (Clear) 02/09/20 23:55 Urine pH 6.0 (5-8) 02/09/20 23:55 Ur Specific [place] 1.020 (1.005-1.025) 02/09/20 23:55 Urine Protein Negative mg/dL (Negative) 02/09/20 23:55 Urine Ketones Negative mg/dL (Negative) 02/09/20 23:55 Urine Blood Negative (Negative) 02/09/20 23:55 Urine Nitrite Negative (Negative) 02/09/20 23:55 Urine Bilirubin Negative (Negative) 02/09/20 23:55 Urine Urobilinogen 0.2 EU/dL (Up TO 0.2) 02/09/20 23:55 Ur Leukocyte Esterase Negative (Negative) 02/09/20 23:55 Urine Glucose 500 mg/dL (Negative) H 02/09/20 23:55 Fluid Source L knee 02/10/20 08:00 Fluid Color Yellow 02/10/20 08:00 Fluid Clarity Purulent 02/10/20 08:00 Fluid WBC 521554 /MM3 (0-0) H 02/10/20 08:00 Fluid Mononuclear Cell 5 % (0-0) H 02/10/20 08:00 Fl Polymorphonucl Cell 95 % (0-0) H 02/10/20 08:00
--- NOTE | 2020-02-11 08:43 | W.PM.PROGNOT ---
Date of Service Date of service: 02/11/20 Time of Service: 08:19 Assessment and Plan Assessment and plan (1) Septic arthritis of knee, left: Status: Acute Assessment and plan: Kurtis is a 75-year-old with an infected left total knee. This likely started as a cellulitis from a wound on his left leg. Over the last, he is status post debridement, irrigation, and polyethylene exchange. He seems clinically to look a lot better. He is already had a decrease in his white blood count and his lactate. His vitals have been stable overnight. His creatinine is still higher than his baseline at 2 but appears stable. I am still awaiting any culture data from the aspiration and the surgery. Until then, we will continue vancomycin and Zosyn with rifampin due to prosthesis retention. Lovenox for DVT prophylaxis. Weight-bear as tolerated with assistive device. Physical therapy consult. May transfer to my service when deemed stable from a medicine standpoint. Qualifiers: Septic arthritis organism: due to unspecified organism Qualified Code(s): M00.9 - Pyogenic arthritis, unspecified Subjective Subjective Interval history since last seen: Kurtis reports that his pain is actually much better. He does have some soreness and has not been able to move the knee a whole lot but he does not have the pain with any sudden motions or at rest like he had before. He denies any fevers or chills. He denies shortness of breath or chest pain. He has been able to eat without any nausea or vomiting. His Barraza catheter is been outputting urine. He has not had a bowel movement. He denies any new numbness or tingling. There was no issue with the wound VAC dressing overnight. Exam Narrative Exam Narrative: Evaluation of the left leg shows a intact vacuum-assisted dressing. Mild drainage. Gentle range of motion causes some mild soreness but no exquisite pain. He is unable to straight leg raise. He has intact ankle dorsiflexion, plantarflexion EHL and FHL function. He has some generalized numbness throughout the foot but grossly intact over the superficial peroneal nerve, deep peroneal nerve, and tibial nerve. The foot is warm and well-perfused. Objective Objective Clinical Data: Abnormal lab results 02/10/20 02/10/20 02/10/20 Range/Units 06:15 08:00 12:07 RBC (4.50-6.00) m/cumm Hgb (13.5-17.5) g/dL Hct (40.0-50.0) % RDW (11.8-14.1) % Plt Count (130-400) x1000/uL Absolute Neutrophils (1.2-6.7) k/cumm Absolute Lymphocytes (1.2-3.4) k/cumm Sodium 126 L D (136-145) mmol/L Potassium 5.2 H (3.5-5.1) mmol/L Anion Gap 0 L (3-11) mmol/L BUN 45 H 40 H (7-18) mg/dL Creatinine 2.11 H 1.73 H (0.70-1.30) mg/dL Glucose 132 H 145 H (74-106) mg/dL Lactate (0.6-1.4) mmol/L Calcium 8.2 L (8.5-10.1) mg/dL Magnesium 1.5 L (1.8-2.4) mg/dL AST 46 H (15-37) U/L C-Reactive Protein (0.0-0.3) mg/dL Fluid WBC 730589 H (0-0) /MM3 Fluid Mononuclear Cell 5 H (0-0) % Fl Polymorphonucl Cell 95 H (0-0) % 02/10/20 02/10/20 02/11/20 Range/Units 12:07 18:35 06:30 RBC (4.50-6.00) m/cumm Hgb (13.5-17.5) g/dL Hct (40.0-50.0) % RDW (11.8-14.1) % Plt Count (130-400) x1000/uL Absolute Neutrophils (1.2-6.7) k/cumm Absolute Lymphocytes (1.2-3.4) k/cumm Sodium (136-145) mmol/L Potassium (3.5-5.1) mmol/L Anion Gap (3-11) mmol/L BUN 47 H 48 H (7-18) mg/dL Creatinine 2.14 H 2.01 H (0.70-1.30) mg/dL Glucose 183 H 156 H (74-106) mg/dL Lactate 2.4 H* (0.6-1.4) mmol/L Calcium 7.5 L 7.8 L (8.5-10.1) mg/dL Magnesium 1.7 L (1.8-2.4) mg/dL AST (15-37) U/L C-Reactive Protein 20.32 H (0.0-0.3) mg/dL Fluid WBC (0-0) /MM3 Fluid Mononuclear Cell (0-0) % Fl Polymorphonucl Cell (0-0) % 02/11/20 02/11/20 Range/Units 06:30 06:30 RBC 3.58 L (4.50-6.00) m/cumm Hgb 10.1 L D (13.5-17.5) g/dL Hct 31.5 L D (40.0-50.0) % RDW 15.6 H (11.8-14.1) % Plt Count 124 L (130-400) x1000/uL Absolute Neutrophils 6.86 H (1.2-6.7) k/cumm Absolute Lymphocytes 0.61 L (1.2-3.4) k/cumm Sodium (136-145) mmol/L Potassium (3.5-5.1) mmol/L Anion Gap (3-11) mmol/L BUN (7-18) mg/dL Creatinine (0.70-1.30) mg/dL Glucose (74-106) mg/dL Lactate 1.7 H (0.6-1.4) mmol/L Calcium (8.5-10.1) mg/dL Magnesium (1.8-2.4) mg/dL AST (15-37) U/L C-Reactive Protein (0.0-0.3) mg/dL Fluid WBC (0-0) /MM3 Fluid Mononuclear Cell (0-0) % Fl Polymorphonucl Cell (0-0) % Vital Signs Temperature 36.4 C L 02/11/20 07:35 Temperature Source Temporal Artery Scan 02/11/20 07:35 Pulse 71 02/11/20 07:35 Pulse 76 02/11/20 06:10 Respiratory Rate 20 02/11/20 06:10 Respiratory Effort Non-Labored 02/11/20 07:35 Respiratory Depth Normal 02/11/20 07:35 Respiratory Pattern Normal 02/11/20 07:35 Blood Pressure 112/50 L 02/11/20 07:35 Blood Pressure Mean 70 02/11/20 07:35 Blood Pressure Position Supine 02/11/20 07:35 Pulse Oximetry 94 L 02/11/20 07:35 Oxygen Delivery Method Room Air 02/11/20 07:35 Oxygen Flow Rate 0 02/11/20 07:35 Pain Level 6 02/11/20 08:08 Intake & Output 02/10/20 02/10/20 02/11/20 11:59 23:59 11:59 Intake Total 2905 / 6067.917 2581.250 / 6067.917 1563.334 / 1563.334 Output Total 700 / 1400 700 / 1400 850 / 850 Balance 2205 / 4667.917 1881.250 / 4667.917 713.334 / 713.334 Weight 131.8 kg Intake: IV 2305 / 5227.917 2341.250 / 5227.917 1163.334 / 1163.334 Oral 600 / 840 240 / 840 400 / 400 Output: Urine 700 / 1200 500 / 1200 850 / 850 Estimated Blood Loss 200 / 200 Other: Urine Color Dark Luca Yellow Light Luca Straw Urine Appearance Clear Clear Clear Urine Odor Normal Comment Pt reports occassional burning when urinating that patient reports is from yeast. Nystatin ordered for reddened scotum barraza to gravity with luca urine Barraza in place and draining Voiding Methods Urinal Laboratory Results WBC 8.21 k/cumm (4.4-10.8) D 02/11/20 06:30 RBC 3.58 m/cumm (4.50-6.00) L 02/11/20 06:30 Hgb 10.1 g/dL (13.5-17.5) L D 02/11/20 06:30 Hct 31.5 % (40.0-50.0) L D 02/11/20 06:30 MCV 88.0 fL (80-95) 02/11/20 06:30 MCH 28.2 pg (27.0-33.0) 02/11/20 06:30 MCHC 32.1 g/dL (32.0-36.0) 02/11/20 06:30 RDW 15.6 % (11.8-14.1) H 02/11/20 06:30 Plt Count 124 x1000/uL (130-400) L 02/11/20 06:30 MPV 9.5 fL (8.0-11.0) 02/11/20 06:30 Immature Gran % 0.2 % 02/11/20 06:30 Neutrophils % 83.6 02/11/20 06:30 Lymphocytes % 7.4 02/11/20 06:30 Monocytes % 8.5 02/11/20 06:30 Eosinophils % 0.2 02/11/20 06:30 Basophils % 0.1 02/11/20 06:30 Absolute Neutrophils 6.86 k/cumm (1.2-6.7) H 02/11/20 06:30 Absolute Lymphocytes 0.61 k/cumm (1.2-3.4) L 02/11/20 06:30 Absolute Monocytes 0.70 k/cumm (0.11-0.7) 02/11/20 06:30 Absolute Eosinophils 0.02 k/cumm (0.0-0.7) 02/11/20 06:30 Absolute Basophils 0.01 k/cumm (0.0-0.2) 02/11/20 06:30 PT 11.5 sec (9.3-11.0) H 02/09/20 22:45 INR 1.1 (0.9-1.1) 02/09/20 22:45 APTT 25.1 sec (21.0-31.4) 02/09/20 22:45 D-Dimer 1334 ng/mlFEU (<500) H 02/09/20 22:45 Sodium 136 mmol/L (136-145) 02/11/20 06:30 Potassium 4.1 mmol/L (3.5-5.1) 02/11/20 06:30 Chloride 104 mmol/L (98-107) 02/11/20 06:30 Carbon Dioxide 23.0 mmol/L (21.0-32.0) 02/11/20 06:30 Anion Gap 9.0 mmol/L (3-11) 02/11/20 06:30 BUN 48 mg/dL (7-18) H 02/11/20 06:30 Creatinine 2.01 mg/dL (0.70-1.30) H 02/11/20 06:30 Estimated GFR/1.73 m2 32.37 (mL/min/1.73m2) 02/11/20 06:30 Glucose 156 mg/dL (74-106) H 02/11/20 06:30 Lactate 1.7 mmol/L (0.6-1.4) H 02/11/20 06:30 Calcium 7.8 mg/dL (8.5-10.1) L 02/11/20 06:30 Magnesium 1.7 mg/dL (1.8-2.4) L 02/11/20 06:30 Total Bilirubin 0.9 mg/dL (0.2-1.0) 02/10/20 06:15 AST 46 U/L (15-37) H 02/10/20 06:15 ALT 49 U/L (16-63) 02/10/20 06:15 Alkaline Phosphatase 82 U/L (46-116) 02/10/20 06:15 Ammonia 10 umol/L (11-32) L 02/09/20 22:45 Troponin I 0.06 ng/Ml (<0.06) 02/11/20 06:30 C-Reactive Protein 20.32 mg/dL (0.0-0.3) H 02/11/20 06:30 NT-Pro-B Natriuret Pep 169 pg/mL (<300) 02/09/20 22:45 Total Protein 6.6 g/dL (6.4-8.2) 02/10/20 06:15 Albumin 3.4 g/dL (3.4-5.0) 02/10/20 06:15 Procalcitonin 7.3 ng/mL 02/10/20 06:15 TSH 1.39 uIU/mL (0.36-3.74) 02/09/20 22:45 Urine Color Yellow (Yellow) 02/09/20 23:55 Urine Clarity Clear (Clear) 02/09/20 23:55 Urine pH 6.0 (5-8) 02/09/20 23:55 Ur Specific [place] 1.020 (1.005-1.025) 02/09/20 23:55 Urine Protein Negative mg/dL (Negative) 02/09/20 23:55 Urine Ketones Negative mg/dL (Negative) 02/09/20 23:55 Urine Blood Negative (Negative) 02/09/20 23:55 Urine Nitrite Negative (Negative) 02/09/20 23:55 Urine Bilirubin Negative (Negative) 02/09/20 23:55 Urine Urobilinogen 0.2 EU/dL (Up TO 0.2) 02/09/20 23:55 Ur Leukocyte Esterase Negative (Negative) 02/09/20 23:55 Urine Glucose 500 mg/dL (Negative) H 02/09/20 23:55 Fluid Source L knee 02/10/20 08:00 Fluid Color Yellow 02/10/20 08:00 Fluid Clarity Purulent 02/10/20 08:00 Fluid WBC 801471 /MM3 (0-0) H 02/10/20 08:00 Fluid Mononuclear Cell 5 % (0-0) H 02/10/20 08:00 Fl Polymorphonucl Cell 95 % (0-0) H 02/10/20 08:00
[2020-02-11] MEDS: Carvedilol 12.5 MG TAB 25 MG PO ×2 (09:10→19:23)
[2020-02-11] MEDS: Gabapentin 300 MG CAP 600 MG PO (09:11)
[2020-02-11] MEDS: Aspirin E.C. 81 MG TABEC PO (09:13)
[2020-02-11] MEDS: Magnesium Oxide 400 MG TAB 800 MG PO (09:13)
[2020-02-11] MEDS: Pantoprazole 40 MG TABCR PO (09:13)
[2020-02-11] MEDS: Enoxaparin 30 MG/0.3 ML SYR SC (09:14)
[2020-02-11] MEDS: Insulin Aspart 300 UNITS/3 ML PEN 30 UNITS SC ×3 (09:15→17:10)
[2020-02-11] MEDS: Insulin Aspart 300 UNITS/3 ML PEN SC (09:15)
[2020-02-11] MEDS: MAGNESIUM SULFATE 2 GM/50 ML BAG IVPB (09:16)
[2020-02-11] MEDS: Insulin Glargine 300 UNITS/3 ML PEN 20 UNITS SC (09:16)
--- NOTE | 2020-02-11 10:38 | IN_ITS ---
Date of service: 02/11/20 Time of Service: 10:40 PT Notes Visit Reasons: SEPSIS Inpatient Physical Therapy Evaluation Date: February 11, 2020 Referring Doctor: Yrn Wilson MD PT Orders: PT CONSULT: Sepsis left knee. 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 Was brought to the ER secondary to increased knee knee pain. Patient was loading his wood stove and dropped a piece of wood on his lower left landers. States that he attempted walking and felt his knee give out. PMHX: Medical History (Updated 02/10/20 @ 00:52 by Reymundo Moulton DO) Arthritis (Acute) CAD (coronary artery disease) (Chronic) Cellulitis (Acute) RIGHT LOWER LEG Diabetes (Chronic) History of seizures as a child (Acute) Hx of myocardial infarction (Acute) 10/2011 STRESS TEST COMPLETED 11/29/2019 Hyperlipidemia (Acute) Hypertension (Chronic) Renal insufficiency (Chronic) Surgical History (Updated 12/29/19 @ 12:14 by JOURDAN Crump) colonoscopy (09/02/16) H/O heart artery stent (Chronic) X2 2014 History of tonsillectomy and adenoidectomy (Acute) History of total left knee replacement (TKR) (Acute 12/14/19) Dr. Wilson Social History/Home Situation: Pt lives in [place] with his . Notes there is a ramp to the front door and no stairs in the home. 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 Equipment Owned/DME: Cane and crutches and front wheeled walker [] Subjective: Patient states that he is feeling a little better compared to time of admittance into [facility]. States that he is already been up once this morning with nursing to sit in a chair. He is agreeable to evaluation. Objective: General Observation: IV bilateral forearms, telemetry, catheter, wound drain left, nasal cannula but no oxygen supplemental. O2 saturation 94%, Cryo/Cuff left knee, left knee has Eduin wrap on it. Mental Status: Alert and oriented x3 Pain: 3/10 left knee ROM: Right Upper Extremity: Shoulder Flexion WFL. Shoulder abduction WFL. Elbow flexion WFL. Wrist flexion WFL. Opening and closing of hand WFL. Left Upper Extremity: Shoulder Flexion WFL. Shoulder abduction WFL. Elbow flexion WFL. Wrist flexion WFL. Opening and closing of hand WFL. Right Lower Extremity: Hip flexion WFL. Hip abduction WFL. Knee flexion WFL. Ankle dorsiflexion WFL. Ankle plantarflexion WFL. Left Lower Extremity: Hip flexion WFL. Hip abduction WFL. Knee flexion 90 degrees. Knee extension -5 degrees. Ankle dorsiflexion WFL. Ankle plantarflexion WFL. Strength: Right Upper Extremity: Shoulder flexors 5/5. Shoulder abductors 5/5. Elbow flexors 5/5. Elbow extensors 5/5. [employer] strong. Left Upper Extremity: Shoulder flexors 5/5. Shoulder abductors 5/5. Elbow flexors 5/5. Elbow extensors 5/5. [employer] strong. Right Lower Extremity: Hip flexors 5/5. Hip abductors 5/5. Knee flexors 5/5. Knee extensors 5/5. Ankle dorsiflexors 4-/5. Ankle plantarflexors 5/5. Left Lower Extremity: Hip flexors 4/5. Hip abductors 5/5. Knee flexors 4-/5. Knee extensors 3+/5. Ankle dorsiflexors 5/5. Ankle plantarflexors 5/5. Sensation: Intact as to pain and pressure on bilateral lower extremities.Right Upper Extremity: [] Bed Mobility/Transfers: Sit?stand: Min assist to front wheeled walker Stand?sit: Min assist from wheeled walker Supine?sit: Min assist x1 Bed-chair: Min assist with front wheeled walker Chair-bed: Min assist with front wheel walker Gait: Ambulate 8 feet x 2 with front wheeled walker and contact-guard. Following ambulation patient was assisted back into bed with head of bed at 35 degrees. Nursing was notified. Balance: Static Sitting: Good Dynamic Sitting: Good Static Standing: Fair Dynamic Standing: Fair Special Tests: Mobility Limitations Standardized Measure [facility] AM-PAC 6 clicks Basic Mobility Inpatient Short Form: Raw Score: 15 standardized Score: 39.45 CMS Score: 57.7 CMS Modifier: CK Informed Consent/Education: Patient instructed in purpose of PT consult and plan of care. Assessment: Patient is a 75 year old male referred to physical therapy services with the diagnosis of status post washout left total knee replacement secondary to sepsis. Patient presents with clinical signs and symptoms consistent with above diagnosis, as demonstrated by the following impairment level findings: Joint mobility, motor function muscle performance and range of motion associated with soft tissue surgery. Impairments are contributing to the following functional limitations: AMPAC score. Patient presents with clinical signs and symptoms consistent with current/admitting diagnoses that have resulted to mobility limitations, gait instability and generalized weakness demonstrated by the following impairment level findings: 1. Decreased strength to LLE hip and knee major muscle groups 2. Impaired standing balance 3. Impaired activity tolerance 4. Limitation of joint range of motion in L knee Impairments are contributing to the following functional limitations: 1. Increased dependence with transfers 2. Inability to safely ambulate without assistive device and physical assistance 3. Increase completion time for mobility ADL performance 4. Increased fall risk 5. Inability to negotiate steps alone safely Patient is assessed as a [] Low 07666 X moderate 35047 [] High 90882 complexity based on the following: History: See above Examination: See above Presentation: Evolving Decision Making: Moderate 37000 Goals: Goals X1 week 1. Sit-Stand independent 2. Stand-Sit independent 3. Bed-Chair independent 4. Chair-Bed independent 5. Independent gait on level surface with use of least restrictive device for at least 300 feet without report of pain nor dyspnea 6. Independent stair negotiation while holding onto bilateral rails for at least 5 steps without report of pain nor dyspnea 7. Independent with home exercise program 8. Good static and dynamic standing balance/tolerance Plan of Care/Treatment Plan: 1-2x/day, 7 days/week x 1 week. Plan of care has been reviewed with the [employer] providing the service under Physical Therapy direction. Initiate Physical Therapy intervention for strengthening, bed mobility, transfers, gait, stairs, balance training, use of assistive device. DISCHARGE RECOMMENDATIONS: D/C to home with home health care TREATMENT CODE/TIME: [id number] 45 minutes 8 30-9 15 Disclaimer: This note was created using [employer] voice recognition software. It was reviewed for major content. However, there may be multiple small discrepancies and errors due to the voice recognition aspects of the software. Salazar Armenta PT,DPT
[2020-02-11 12:47] LABS: Lactate 1.4 mmol/L (0.6-1.4)
--- NOTE | 2020-02-11 15:07 | NUR.NOTE ---
Nursing Note: Pt transferred from ICU to room 205. VSS, Pt A&Ox3. denies pain. Last d/c'd @ 1400, due to void. unsure how Pt transfers @ this time. NS running @ 125. Mg finished. Cryo cuff and BRYAN intact on left knee. Pt oriented to room.
[2020-02-11] MEDS: Nystatin POWDER 60 GM JAR TP ×2 (16:59→19:26)
[2020-02-11] MEDS: Gabapentin 300 MG CAP 900 MG PO (19:22)
[2020-02-11] MEDS: Insulin Glargine 300 UNITS/3 ML PEN 80 UNITS SC (19:23)
[2020-02-11] MEDS: Magnesium Oxide 400 MG TAB PO (19:23)
[2020-02-11] MEDS: Normal Saline 1,000 ML 150 ML IV (20:16)
[2020-02-11] MEDS: Normal Saline Flush 10 ML SYR IVP (21:55)
[2020-02-11] MEDS: Polyethylene Glycol 3350 17 GM PACKET PO (22:49)
[2020-02-11] MEDS: Docusate Sodium 100 MG CAP PO (22:49)
[2020-02-12] VITALS (8 sets, daily range): BP systolic 121–145; BP diastolic 60–70; PULSE 67–79; RESP 18–22; TEMP 35.7–37.1; O2SAT 94–99
[2020-02-12] MEDS: oxyCODONE 5 MG TAB PO (02:49)
[2020-02-12] MEDS: Normal Saline 1,000 ML 150 ML IV ×2 (02:49→10:18)
[2020-02-12] MEDS: PIPERACILLIN/TAZO 2.25 GM in Normal Saline 50 ML IVPB ×4 (03:42→22:07)
[2020-02-12 05:45] LABS: Abs Immature Grans 0.02 k/cumm (0.0-0.09); Absolute Basophil Count 0.01 k/cumm (0.0-0.2); Absolute Eosinophil Count 0.12 k/cumm (0.0-0.7); Absolute Lymphocyte Count 0.54 k/cumm (1.2-3.4); Absolute Monocyte Count 0.62 k/cumm (0.11-0.7); Absolute Neutrophil Count 5.29 k/cumm (1.2-6.7); Basophils % 0.2; Eosinophils % 1.8; HCT 29.2 % (40.0-50.0); HGB 9.4 g/dL (13.5-17.5); Immature Grans % 0.3 %; Lymphocytes % 8.2; Mean Corp. HGB Concentration 32.2 g/dL (32.0-36.0); Mean Corpuscular Hemoglobin 28.1 pg (27.0-33.0); Mean Corpuscular Volume 87.4 fL (80-95); Mean Platelet Volume 9.5 fL (8.0-11.0); Monocytes % 9.4; Neutrophils % 80.1; Platelet Count 131 x1000/uL (130-400); RBC 3.34 m/cumm (4.50-6.00); RBC Distribution Width 15.1 % (11.8-14.1)
[2020-02-12 05:55] LABS: Anion Gap 8.3 mmol/L (3-11); BUN 38 mg/dL (7-18); C-Reactive Protein 14.72 mg/dL (0.0-0.3); CO2 24.7 mmol/L (21.0-32.0); CREATININE 1.68 mg/dL (0.70-1.30); Calcium 8.1 mg/dL (8.5-10.1); Chloride 104 mmol/L (98-107); Estimated GFR 39.82 (mL/min/1.73m2); Glucose 93 mg/dL (74-106); Magnesium 1.7 mg/dL (1.8-2.4); Potassium 4.2 mmol/L (3.5-5.1); Sodium 137 mmol/L (136-145)
[2020-02-12 06:08] LABS: Anisocytosis 1+; Polychromasia Present
[2020-02-12] MEDS: rifAMPin 300 MG CAP PO ×2 (06:15→20:50)
[2020-02-12] MEDS: Insulin Glargine 300 UNITS/3 ML PEN 20 UNITS SC (07:38)
[2020-02-12] MEDS: Magnesium Oxide 400 MG TAB 800 MG PO (08:19)
[2020-02-12] MEDS: Aspirin E.C. 81 MG TABEC PO (08:20)
[2020-02-12] MEDS: Gabapentin 300 MG CAP 600 MG PO (08:20)
[2020-02-12] MEDS: Pantoprazole 40 MG TABCR PO (08:20)
[2020-02-12] MEDS: Enoxaparin 30 MG/0.3 ML SYR SC (08:21)
[2020-02-12] MEDS: MAGNESIUM SULFATE 2 GM/50 ML BAG IVPB (09:46)
--- NOTE | 2020-02-12 09:49 | PT.INTREAT ---
Date of service: 02/12/20 Time of Service: 09:49 PT Notes Visit Reasons: SEPSIS 02/12/2020 SUBJECTIVE: Kurtis stating pain rating at 2/10. He notes the right knee is also quite arthritic and needs to be replaced at some point. He states prior to this admission he was walking without an assistive device. He feels quite weak at this point. OBJECTIVE: Seated EOB. Agreeable to PT treatment. TRANSFERS Sit to stand: Min A Stand to sit: Min A GAIT Device: FWW Weight bearing: AT L Assist: CGA Distance: 8' Deviation: No supplemental oxygen with ambulation although he drops to the low 80's. Replaces with 1 L NC THEREX: Light LE strengthening and ROM activities. See flow sheet. ASSESSMENT: Pt tolerates PT well today. He does feel unsteady with the FWW due to increase in weakness through bilateral LE's. Pt was instructed in basic LE strengthening that he can perform throughout the day. Pt will benefit from continued PT services to improve his activity tolerance, strength and gait ability. PLAN: Continue current POC. Treatment time: 25 minutes [id number], [id number] Venus Hale, SUKH
[2020-02-12] MEDS: Fluticasone NASAL SPRAY 16 GM BTL NS (09:56)
[2020-02-12] MEDS: Nystatin POWDER 60 GM JAR TP ×2 (09:57→19:45)
[2020-02-12] MEDS: Carvedilol 12.5 MG TAB PO ×2 (09:58→19:45)
[2020-02-12] MEDS: Normal Saline Flush 10 ML SYR IVP ×3 (10:01→22:07)
[2020-02-12] MEDS: Acetaminophen 500 MG TAB 1000 MG PO (10:34)
--- NOTE | 2020-02-12 11:27 | PDOC.CMPRO ---
- If Service Date Differs Date of service: 02/12/20 Time of Service: 11:27 Care Management Progress Note S/O:Kurtis remains acute. Kurtis was reviewed at multidisciplinary rounds, length of treatment with IV abx to be determined. He is sitting up in the room, continues to work with PT. A:Kurtis is a 75-year-old admitted with sepsis, with infected left total knee. P: Kurtis remains inpatient course and length of treatment to be determined. He is currently receiving multiple IV abx pending wound cultures. Disposition to be determined. CM to continue to assess for discharge needs including extended need for IV antibiotics.
--- NOTE | 2020-02-12 13:13 | W.PM.PROGNOT ---
Date of Service Date of service: 02/12/20 Time of Service: 13:14 Assessment and Plan Assessment and plan (1) Sepsis: Status: Resolved Assessment and plan: with periprosthetic infection of L knee and Group G strep bacteremia. S/p washout of L knee 02/10/[address] Wilson. We now feel that the original port of entry was cellulitis LLE. Repeat blood cultures are pending. Echo ordered for tomorrow to r/o endocarditis/AV russell abscess, especially given AV block on tele. A request for a phone consult with ID placed - will discuss choice abx. Overall, marked clinical improvement. Continue empiric vanco/zosyn/rifampin until recommendations of abx known - ultimately, he will probably end up being on ceftriaxone 2 grams IV daily. Qualifiers: Sepsis type: sepsis due to unspecified organism Sepsis acute organ dysfunction status: with acute organ dysfunction Severe sepsis acute organ dysfunction type: acute renal failure Acute renal failure type: unspecified Severe sepsis shock status: without septic shock Qualified Code(s): A41.9 - Sepsis, unspecified organism; R65.20 - Severe sepsis without septic shock; N17.9 - Acute kidney failure, unspecified (2) Septic arthritis of knee, left: Status: Acute Assessment and plan: As above Qualifiers: Septic arthritis organism: due to unspecified organism Qualified Code(s): M00.9 - Pyogenic arthritis, unspecified (3) History of total left knee replacement (TKR): Status: Acute Assessment and plan: As above (4) Benign hypertension: Status: Chronic Assessment and plan: Continue to hold antihypertensives with the exception of coreg (lowered dose due to 1st degree AV block)/doxazosin. (5) Diabetes mellitus type 2: Status: Chronic Assessment and plan: Decrease basal insulin due to fasting hypoglycemia. (6) Acute kidney injury (nontraumatic): Status: Acute Assessment and plan: Improved. D/c IVF as now has crackles. Continue to monitor. (7) Discharge planning issues: Status: Acute Assessment and plan: DNR/DNI Will continue to follow along (8) DVT prophylaxis: Status: Acute Assessment and plan: renally dosed lovenox SC Subjective Subjective Interval history since last seen: Mr Alanis states he is feeling himself. Denies dizziness, chest pain, shortness of breath, nausea. Reports constipation. Pain in left knee controlled, but left hip is bothering him. Exam Narrative Exam Narrative: General: Very pleasant obese male, A&Ox3, sitting up in a chair HEENT: EOMI, MMM Heart: RRR, distant heart sounds, no murmurs Lungs: crackles at R base. Abdomen: soft, nontender, nondistended Extremities: LLE dressed; ice applied. RLE edema > LLE edema Objective Objective Clinical Data: Abnormal lab results 02/12/20 02/12/20 Range/Units 05:15 05:15 RBC 3.34 L (4.50-6.00) m/cumm Hgb 9.4 L (13.5-17.5) g/dL Hct 29.2 L (40.0-50.0) % RDW 15.1 H (11.8-14.1) % Absolute Lymphocytes 0.54 L (1.2-3.4) k/cumm BUN 38 H D (7-18) mg/dL Creatinine 1.68 H (0.70-1.30) mg/dL Calcium 8.1 L (8.5-10.1) mg/dL Magnesium 1.7 L (1.8-2.4) mg/dL C-Reactive Protein 14.72 H (0.0-0.3) mg/dL Vital Signs Temperature 36.9 C 02/12/20 11:20 Temperature Source Temporal Artery Scan 02/12/20 11:20 Pulse 67 02/12/20 11:20 Pulse Rhythm Regular 02/12/20 08:28 Pulse 72 02/11/20 07:29 Respiratory Rate 22 02/12/20 11:20 Respiratory Effort Short of Breath 02/12/20 08:28 Respiratory Depth Normal 02/12/20 08:28 Respiratory Pattern Normal 02/12/20 08:28 Blood Pressure 121/62 02/12/20 11:20 Blood Pressure Mean 70 02/11/20 07:35 Blood Pressure Position Supine 02/11/20 07:35 Pulse Oximetry 96 02/12/20 11:20 Oxygen Delivery Method Room Air 02/12/20 11:20 Oxygen Flow Rate 0 02/12/20 11:20 Pain Level 1 02/12/20 11:20 Intake & Output 02/11/20 02/12/20 02/12/20 23:59 11:59 23:59 Intake Total 1925.983 / 3839.317 2892.5 / 3292.5 400 / 3292.5 Output Total 2625 / 3475 1940 / 2320 380 / 2320 Balance -699.017 / 364.317 952.5 / 972.5 20 / 972.5 Weight 134.1 kg Intake: IV 1522.983 / 3036.317 2032.5 / 2032.5 Oral 403 / 803 860 / 1260 400 / 1260 Output: Urine 2624 / 3475 1939 / 2320 380 / 2320 Other: Urine Color Light Carla Light Carla Light Carla Urine Appearance Clear Clear Clear Urine Odor Strong Normal Normal Voiding Methods Urinal Urinal Urinal Laboratory Results WBC 6.60 k/cumm (4.4-10.8) 02/12/20 05:15 RBC 3.34 m/cumm (4.50-6.00) L 02/12/20 05:15 Hgb 9.4 g/dL (13.5-17.5) L 02/12/20 05:15 Hct 29.2 % (40.0-50.0) L 02/12/20 05:15 MCV 87.4 fL (80-95) 02/12/20 05:15 MCH 28.1 pg (27.0-33.0) 02/12/20 05:15 MCHC 32.2 g/dL (32.0-36.0) 02/12/20 05:15 RDW 15.1 % (11.8-14.1) H 02/12/20 05:15 Plt Count 131 x1000/uL (130-400) 02/12/20 05:15 MPV 9.5 fL (8.0-11.0) 02/12/20 05:15 Immature Gran % 0.3 % 02/12/20 05:15 Neutrophils % 80.1 02/12/20 05:15 Lymphocytes % 8.2 02/12/20 05:15 Monocytes % 9.4 02/12/20 05:15 Eosinophils % 1.8 02/12/20 05:15 Basophils % 0.2 02/12/20 05:15 Absolute Neutrophils 5.29 k/cumm (1.2-6.7) 02/12/20 05:15 Absolute Lymphocytes 0.54 k/cumm (1.2-3.4) L 02/12/20 05:15 Absolute Monocytes 0.62 k/cumm (0.11-0.7) 02/12/20 05:15 Absolute Eosinophils 0.12 k/cumm (0.0-0.7) 02/12/20 05:15 Absolute Basophils 0.01 k/cumm (0.0-0.2) 02/12/20 05:15 RBC Morphology See below 02/12/20 05:15 Polychromasia Present 02/12/20 05:15 Anisocytosis 1+ 02/12/20 05:15 PT 11.5 sec (9.3-11.0) H 02/09/20 22:45 INR 1.1 (0.9-1.1) 02/09/20 22:45 APTT 25.1 sec (21.0-31.4) 02/09/20 22:45 D-Dimer 1334 ng/mlFEU (<500) H 02/09/20 22:45 Sodium 137 mmol/L (136-145) 02/12/20 05:15 Potassium 4.2 mmol/L (3.5-5.1) 02/12/20 05:15 Chloride 104 mmol/L (98-107) 02/12/20 05:15 Carbon Dioxide 24.7 mmol/L (21.0-32.0) 02/12/20 05:15 Anion Gap 8.3 mmol/L (3-11) 02/12/20 05:15 BUN 38 mg/dL (7-18) H D 02/12/20 05:15 Creatinine 1.68 mg/dL (0.70-1.30) H 02/12/20 05:15 Estimated GFR/1.73 m2 39.82 (mL/min/1.73m2) 02/12/20 05:15 Glucose 93 mg/dL (74-106) D 02/12/20 05:15 Lactate 1.4 mmol/L (0.6-1.4) 02/11/20 12:36 Calcium 8.1 mg/dL (8.5-10.1) L 02/12/20 05:15 Magnesium 1.7 mg/dL (1.8-2.4) L 02/12/20 05:15 Total Bilirubin 0.9 mg/dL (0.2-1.0) 02/10/20 06:15 AST 46 U/L (15-37) H 02/10/20 06:15 ALT 49 U/L (16-63) 02/10/20 06:15 Alkaline Phosphatase 82 U/L (46-116) 02/10/20 06:15 Ammonia 10 umol/L (11-32) L 02/09/20 22:45 Troponin I 0.06 ng/Ml (<0.06) 02/11/20 06:30 C-Reactive Protein 14.72 mg/dL (0.0-0.3) H 02/12/20 05:15 NT-Pro-B Natriuret Pep 169 pg/mL (<300) 02/09/20 22:45 Total Protein 6.6 g/dL (6.4-8.2) 02/10/20 06:15 Albumin 3.4 g/dL (3.4-5.0) 02/10/20 06:15 Procalcitonin 7.3 ng/mL 02/10/20 06:15 TSH 1.39 uIU/mL (0.36-3.74) 02/09/20 22:45 Urine Color Yellow (Yellow) 02/09/20 23:55 Urine Clarity Clear (Clear) 02/09/20 23:55 Urine pH 6.0 (5-8) 02/09/20 23:55 Ur Specific [place] 1.020 (1.005-1.025) 02/09/20 23:55 Urine Protein Negative mg/dL (Negative) 02/09/20 23:55 Urine Ketones Negative mg/dL (Negative) 02/09/20 23:55 Urine Blood Negative (Negative) 02/09/20 23:55 Urine Nitrite Negative (Negative) 02/09/20 23:55 Urine Bilirubin Negative (Negative) 02/09/20 23:55 Urine Urobilinogen 0.2 EU/dL (Up TO 0.2) 02/09/20 23:55 Ur Leukocyte Esterase Negative (Negative) 02/09/20 23:55 Urine Glucose 500 mg/dL (Negative) H 02/09/20 23:55 Fluid Source L knee 02/10/20 08:00 Fluid Color Yellow 02/10/20 08:00 Fluid Clarity Purulent 02/10/20 08:00 Fluid WBC 007697 /MM3 (0-0) H 02/10/20 08:00 Fluid Mononuclear Cell 5 % (0-0) H 02/10/20 08:00 Fl Polymorphonucl Cell 95 % (0-0) H 02/10/20 08:00
--- NOTE | 2020-02-12 13:56 | W.PM.PROGNOT ---
Date of Service Date of service: 02/12/20 Time of Service: 13:56 Assessment and Plan Assessment and plan (1) Septic arthritis of knee, left: Status: Acute Assessment and plan: Kurtis is a 75-year-old who has a septic left knee. This is likely hematogenous in origin given group G strep growing in his blood in the history of an abrasion on the left leg with resultant cellulitis. Fortunately, I do think this has a high likelihood of being eradicated with the single-stage debridement with retention of prosthesis. I would recommend the addition of rifampin unless infectious disease states otherwise as it has been shown to improve remission rates. He can continue to weight-bear as tolerated. I will also continue to follow the left hip pain which is likely a traumatic trochanteric bursitis from his fall. I appreciate the hospitalist involvement, directing his care with his presentation of sepsis, ongoing bacteremia, and the work-up for this. Qualifiers: Septic arthritis organism: due to unspecified organism Qualified Code(s): M00.9 - Pyogenic arthritis, unspecified Subjective Subjective Interval history since last seen: Kurtis reports of the left knee is continuing to feel somewhat better. He does have pain when using it but it is not like it was from before surgery. He has had some pain about the posterior aspect of his left hip and into the buttock. This has not worsened at all in the last 2 days but has been persistent, especially if he lays on that side while in the bed. He denies fevers or chills. He denies chest pain or shortness of breath. His blood cultures are growing group G strep. The knee fluid culture is growing gram-positive cocci. The pain in the left hip is not necessarily worsened with weightbearing. No other complaints. Exam Narrative Exam Narrative: Resting in the chair. The left knee dressing shows some drainage over the inferior aspect but still has adequate suction. Eduin wrap is removed. Knee range of motion is tolerated from 5 to 85 degrees. He is unable to straight leg raise. No pain with internal and external rotation of the left hip. Pain to palpation over the posterior aspect of the trochanter and in the soft tissues between the trochanter and the issue him. Mild pain over the ischium. Some pain along the IT band. No notable redness or signs of worsening infection in the left leg. No crepitus on palpation. Objective Objective Clinical Data: Abnormal lab results 02/12/20 02/12/20 Range/Units 05:15 05:15 RBC 3.34 L (4.50-6.00) m/cumm Hgb 9.4 L (13.5-17.5) g/dL Hct 29.2 L (40.0-50.0) % RDW 15.1 H (11.8-14.1) % Absolute Lymphocytes 0.54 L (1.2-3.4) k/cumm BUN 38 H D (7-18) mg/dL Creatinine 1.68 H (0.70-1.30) mg/dL Calcium 8.1 L (8.5-10.1) mg/dL Magnesium 1.7 L (1.8-2.4) mg/dL C-Reactive Protein 14.72 H (0.0-0.3) mg/dL Vital Signs Temperature 36.9 C 02/12/20 11:20 Temperature Source Temporal Artery Scan 02/12/20 11:20 Pulse 67 02/12/20 11:20 Pulse Rhythm Regular 02/12/20 08:28 Pulse 72 02/11/20 07:29 Respiratory Rate 22 02/12/20 11:20 Respiratory Effort Short of Breath 02/12/20 08:28 Respiratory Depth Normal 02/12/20 08:28 Respiratory Pattern Normal 02/12/20 08:28 Blood Pressure 121/62 02/12/20 11:20 Blood Pressure Mean 70 02/11/20 07:35 Blood Pressure Position Supine 02/11/20 07:35 Pulse Oximetry 96 02/12/20 11:20 Oxygen Delivery Method Room Air 02/12/20 11:20 Oxygen Flow Rate 0 02/12/20 11:20 Pain Level 1 02/12/20 11:20 Intake & Output 02/11/20 02/12/20 02/12/20 23:59 11:59 23:59 Intake Total 1925.983 / 3839.317 2892.5 / 3532.5 640 / 3532.5 Output Total 2625 / 3475 1940 / 2320 380 / 2320 Balance -699.017 / 364.317 952.5 / 1212.5 260 / 1212.5 Weight 134.1 kg Intake: IV 1522.983 / 3036.317 2032.5 / 2031.5 Oral 403 / 803 860 / 1500 640 / 1500 Output: Urine 2625 / 3475 1940 / 2320 380 / 2320 Other: Urine Color Light Carla Light Carla Light Carla Urine Appearance Clear Clear Clear Urine Odor Strong Normal Normal Stool Size Small Stool Characteristics Liquid Brown Voiding Methods Urinal Urinal Bedside Commode Laboratory Results WBC 6.60 k/cumm (4.4-10.8) 02/12/20 05:15 RBC 3.34 m/cumm (4.50-6.00) L 02/12/20 05:15 Hgb 9.4 g/dL (13.5-17.5) L 02/12/20 05:15 Hct 29.2 % (40.0-50.0) L 02/12/20 05:15 MCV 87.4 fL (80-95) 02/12/20 05:15 MCH 28.1 pg (27.0-33.0) 02/12/20 05:15 MCHC 32.2 g/dL (32.0-36.0) 02/12/20 05:15 RDW 15.1 % (11.8-14.1) H 02/12/20 05:15 Plt Count 131 x1000/uL (130-400) 02/12/20 05:15 MPV 9.5 fL (8.0-11.0) 02/12/20 05:15 Immature Gran % 0.3 % 02/12/20 05:15 Neutrophils % 80.1 02/12/20 05:15 Lymphocytes % 8.2 02/12/20 05:15 Monocytes % 9.4 02/12/20 05:15 Eosinophils % 1.8 02/12/20 05:15 Basophils % 0.2 02/12/20 05:15 Absolute Neutrophils 5.29 k/cumm (1.2-6.7) 02/12/20 05:15 Absolute Lymphocytes 0.54 k/cumm (1.2-3.4) L 02/12/20 05:15 Absolute Monocytes 0.62 k/cumm (0.11-0.7) 02/12/20 05:15 Absolute Eosinophils 0.12 k/cumm (0.0-0.7) 02/12/20 05:15 Absolute Basophils 0.01 k/cumm (0.0-0.2) 02/12/20 05:15 RBC Morphology See below 02/12/20 05:15 Polychromasia Present 02/12/20 05:15 Anisocytosis 1+ 02/12/20 05:15 PT 11.5 sec (9.3-11.0) H 02/09/20 22:45 INR 1.1 (0.9-1.1) 02/09/20 22:45 APTT 25.1 sec (21.0-31.4) 02/09/20 22:45 D-Dimer 1334 ng/mlFEU (<500) H 02/09/20 22:45 Sodium 137 mmol/L (136-145) 02/12/20 05:15 Potassium 4.2 mmol/L (3.5-5.1) 02/12/20 05:15 Chloride 104 mmol/L (98-107) 02/12/20 05:15 Carbon Dioxide 24.7 mmol/L (21.0-32.0) 02/12/20 05:15 Anion Gap 8.3 mmol/L (3-11) 02/12/20 05:15 BUN 38 mg/dL (7-18) H D 02/12/20 05:15 Creatinine 1.68 mg/dL (0.70-1.30) H 02/12/20 05:15 Estimated GFR/1.73 m2 39.82 (mL/min/1.73m2) 02/12/20 05:15 Glucose 93 mg/dL (74-106) D 02/12/20 05:15 Lactate 1.4 mmol/L (0.6-1.4) 02/11/20 12:36 Calcium 8.1 mg/dL (8.5-10.1) L 02/12/20 05:15 Magnesium 1.7 mg/dL (1.8-2.4) L 02/12/20 05:15 Total Bilirubin 0.9 mg/dL (0.2-1.0) 02/10/20 06:15 AST 46 U/L (15-37) H 02/10/20 06:15 ALT 49 U/L (16-63) 02/10/20 06:15 Alkaline Phosphatase 82 U/L (46-116) 02/10/20 06:15 Ammonia 10 umol/L (11-32) L 02/09/20 22:45 Troponin I 0.06 ng/Ml (<0.06) 02/11/20 06:30 C-Reactive Protein 14.72 mg/dL (0.0-0.3) H 02/12/20 05:15 NT-Pro-B Natriuret Pep 169 pg/mL (<300) 02/09/20 22:45 Total Protein 6.6 g/dL (6.4-8.2) 02/10/20 06:15 Albumin 3.4 g/dL (3.4-5.0) 02/10/20 06:15 Procalcitonin 7.3 ng/mL 02/10/20 06:15 TSH 1.39 uIU/mL (0.36-3.74) 02/09/20 22:45 Urine Color Yellow (Yellow) 02/09/20 23:55 Urine Clarity Clear (Clear) 02/09/20 23:55 Urine pH 6.0 (5-8) 02/09/20 23:55 Ur Specific [place] 1.020 (1.005-1.025) 02/09/20 23:55 Urine Protein Negative mg/dL (Negative) 02/09/20 23:55 Urine Ketones Negative mg/dL (Negative) 02/09/20 23:55 Urine Blood Negative (Negative) 02/09/20 23:55 Urine Nitrite Negative (Negative) 02/09/20 23:55 Urine Bilirubin Negative (Negative) 02/09/20 23:55 Urine Urobilinogen 0.2 EU/dL (Up TO 0.2) 02/09/20 23:55 Ur Leukocyte Esterase Negative (Negative) 02/09/20 23:55 Urine Glucose 500 mg/dL (Negative) H 02/09/20 23:55 Fluid Source L knee 02/10/20 08:00 Fluid Color Yellow 02/10/20 08:00 Fluid Clarity Purulent 02/10/20 08:00 Fluid WBC [id number] /MM3 (0-0) H 02/10/20 08:00 Fluid Mononuclear Cell 5 % (0-0) H 02/10/20 08:00 Fl Polymorphonucl Cell 95 % (0-0) H 02/10/20 08:00
[2020-02-12] MEDS: Insulin Aspart 300 UNITS/3 ML PEN 20 UNITS SC (16:43)
[2020-02-12] MEDS: Magnesium Oxide 400 MG TAB PO (19:44)
[2020-02-12] MEDS: Docusate Sodium 100 MG CAP PO (19:44)
[2020-02-12] MEDS: Gabapentin 300 MG CAP 900 MG PO (19:44)
[2020-02-12] MEDS: Senna TAB 1 TAB PO (19:45)
[2020-02-12] MEDS: Insulin Glargine 300 UNITS/3 ML PEN 50 UNITS SC (19:45)
[2020-02-12 21:20] LABS: Vancomycin, Trough 10.6 ug/mL (10.0-20.0)
[2020-02-12] MEDS: Insulin Aspart 300 UNITS/3 ML PEN SC (22:12)
[2020-02-13 03:45] VITALS: BP 134/64; PULSE 76; RESP 19; TEMP 36.9; O2SAT 97
[2020-02-13] MEDS: oxyCODONE 5 MG TAB PO ×2 (03:45→22:18)
[2020-02-13] MEDS: Acetaminophen 500 MG TAB 1000 MG PO (03:45)
[2020-02-13] MEDS: PIPERACILLIN/TAZO 2.25 GM in Normal Saline 50 ML IVPB ×2 (04:06→10:17)
[2020-02-13] MEDS: rifAMPin 300 MG CAP PO ×2 (06:16→19:57)
[2020-02-13 07:16] LABS: Abs Immature Grans 0.02 k/cumm (0.0-0.09); Absolute Basophil Count 0.02 k/cumm (0.0-0.2); Absolute Eosinophil Count 0.16 k/cumm (0.0-0.7); Absolute Lymphocyte Count 0.67 k/cumm (1.2-3.4); Absolute Monocyte Count 0.57 k/cumm (0.11-0.7); Absolute Neutrophil Count 4.51 k/cumm (1.2-6.7); Basophils % 0.3; Eosinophils % 2.7; HCT 30.6 % (40.0-50.0); HGB 9.8 g/dL (13.5-17.5); Immature Grans % 0.3 %; Lymphocytes % 11.3; Mean Corpuscular Hemoglobin 27.9 pg (27.0-33.0); Mean Corpuscular Volume 87.2 fL (80-95); Mean Platelet Volume 9.7 fL (8.0-11.0); Monocytes % 9.6; Neutrophils % 75.8; Platelet Count 155 x1000/uL (130-400); RBC 3.51 m/cumm (4.50-6.00); RBC Distribution Width 14.8 % (11.8-14.1); White Blood Cell Count 5.95 k/cumm (4.4-10.8)
[2020-02-13 07:20] VITALS: BP 130/69; PULSE 65; RESP 18; TEMP 36.5; O2SAT 95
[2020-02-13 07:37] LABS: Anion Gap 10.9 mmol/L (3-11); BUN 29 mg/dL (7-18); C-Reactive Protein 10.38 mg/dL (0.0-0.3); CO2 25.1 mmol/L (21.0-32.0); CREATININE 1.55 mg/dL (0.70-1.30); Calcium 8.8 mg/dL (8.5-10.1); Chloride 105 mmol/L (98-107); Glucose 91 mg/dL (74-106); Magnesium 1.8 mg/dL (1.8-2.4); Sodium 141 mmol/L (136-145)
[2020-02-13 07:53] LABS: Procalcitonin 2.7 ng/mL
--- NOTE | 2020-02-13 08:00 | DI.US_ITS ---
APPROVED REPORT EXAM: Comprehensive 2D, Doppler, and color-flow Echocardiogram Patient Location: In-Patient Room/Bed: [address]A Geography Professor: Jaz Rutledge RDCS (AE) Indications: Bacteremia, Heart Block Echo Enhancing Agent Comments: ?endocarditis Conclusion Left Ventricle : The left ventricle is normal size. The left ventricular ejection fraction is within the normal range. Borderline concentric left ventricular hypertrophy. There is normal LV segmental wa ll motion. The left ventricular diastolic function is normal. LVEF is 50-55% Right Ventricle : The right ventricle is normal size. The right ventricular systolic function is norm al. Atria : The left atrium size is normal. The right atrium size is normal. Valves: There are no hemodynamically significant valvular lesions. There are no vegetations visualiz ed. Great Vessels : Aortic root is dilated. IVC is normal in size and collapses >50% with inspiration. E stimated RVSP is 19-22 mmHg. See remainder of report for additional details. There is no prior echocardiogram available for comparison. Wall motion Left Ventricle The left ventricle is normal size. The left ventricular ejection fraction is within the normal range. Borderline concentric left ventricular hypertrophy. There is normal LV segmental wall motion. The le ft ventricular diastolic function is normal. LVEF is 50-55% Right Ventricle The right ventricle is normal size. The right ventricular systolic function is normal. Atria The left atrium size is normal. The right atrium size is normal. The interatrial septum is intact wit h no evidence for an atrial septal defect. Aortic Valve The Aortic valve is sclerotic. There is no aortic valvular stenosis. No aortic regurgitation is prese nt. Cannot exclude aortic valve vegetation. Mitral Valve There is mitral annular calcification. No evidence of mitral valve stenosis. Trace mitral regurgitati on. There is no evidence of mitral valve vegetations. Tricuspid Valve The tricuspid valve is normal in structure. There is no tricuspid valve stenosis. Trace tricuspid reg urgitation. There is no tricuspid valve vegetations. Pulmonic Valve Pulmonic valve is grossly normal in structure. There is no pulmonic valvular stenosis. Trace pulmonic regurgitation. Cannot exclude pulmonic valve vegetation. Great Vessels Aortic root is dilated. The pulmonary artery is normal. The ascending aorta is not well visualized. I VC is normal in size and collapses >50% with inspiration. Estimated RVSP is 19-22 mmHg. Pericardium There is no pericardial effusion. There is no pleural effusion. 2D Dimensions IVSD d PLAX 1.02 cm M: 0.6-1.2 LV Vol A2C d MOD 116.8 mL LVPW d PLAX 1.06 cm M: 0.6 - 1.2 LV Vol A4C d MOD 160.2 mL LVID d PLAX 5.38 cm M: 4.2 - 5.8 LA vol/ BSA A2C s A-L 24.6 mL/m2 LVDs 4.05 cm M: 2.5 - 4.0 LA vol/ BSA A4C s A-L 36.6 mL/m2 Ao Root d 3.95 cm M: 3.1 - 3.7 LA Vol/ BSA Biplane s A-L 31.8 mL/m2 RA Area A4C 18.13 cm2 LA Area A4C s MOD 23.74 cm2 RA Vol/ BSA A4C s A-L 27.7 mL/m2 LA Area A2C s MOD 20.65 cm2 LV EF Teichholz 47.9 % LV EF A4C MOD 45.2 % LVEF (Ornelas's) 50.26 % M: 52 - 72 LV EF A2C MOD 55.4 % LV Volume 97.87 mL M: 62 - 150 LV EF Biplane MOD 50.3 % LV Volume Index 40.27 mL/m2 M: 34 - 74 LV Vol Biplane MOD 138.8 mL FS 24.30 % LV Diastology MV E' medial 0.083 (>0.07 m/s) E/A Ratio 1.0 LV E/e MED 10.70 (<14) MV E Vmax 0.89 (0.4-1.3 m/s) MV E' lateral 0.108 (>0.1 m/s) MV A Vmax 0.85 (0.4-1.3 m/s) LV E/e LAT 8.30 (<14) MV E/A Ratio 1.05 MV E/E' medial 10.75 MV E/E' lateral 8.30 Aortic Valve LVOT Area 12.14 cm2 AoV Area Vmax 8.85 cm2 LVOT Vmax 1.02 m/s AoV Area/ BSA (Vmax) 3.63 cm2/m2 LVOT Mean Brian. 0.65 m/s MORRO Mean Brian. 7.99 cm2 LVOT Peak Grad 4.2 mmHg MORRO Mean Brian. Index 3.28 cm2/m2 LVOT Mean Grad 2.0 mmHg LVOT VTI 0.254 m LVOT Diam s 3.90 cm (M/F) 1.5-2.5 AoV Vmax 1.40 (0.5-1.3 m/s) Velocity Ratio 0.72 AoV Mean Brian. 0.98 m/s AoV Peak Grad 7.8 mmHg LVOT SV 308.77 mL AoV Mean Grad 4.3 (<5 mmHg) AoV VTI 0.321 (0.18-0.25 m) AoV Area VTI 9.61 (2.5-4.5 cm2) AoV Area/ BSA (VTI) 3.94 cm/m2 Mitral Valve MV DT 191 (160-240 msec) MV PHT 55 msec MV Area PHT 3.98 cm2 Pulmonary Valve PV Vmax 0.78 (0.5-1.5 m/s) RVOT Peak Gr. 1.31 mmHg PV Peak Grad 2.4 mmHg RVOT Mean Gr. 0.70 mmHg PV Mean Grad 1.4 mmHg RVOT VTI 0.132 m PV VTI 0.197 m RVOT Vmax 0.57 m/s Tricuspid Valve TR Peak Grad 19.5 mmHg TR Vmax 2.21 m/s RA Pressure 3.00 mmHg RVSP (TR) 22.6 mmHg
[2020-02-13 08:18] LABS: Ferritin 369 ng/mL (26-388); Folate 14.7 ng/mL (8.6-20.0); Vitamin B12 432 pg/mL (193-986)
[2020-02-13] MEDS: Normal Saline Flush 10 ML SYR IVP (09:34)
[2020-02-13] MEDS: Nystatin POWDER 60 GM JAR TP ×3 (09:34→20:18)
[2020-02-13] MEDS: Enoxaparin 30 MG/0.3 ML SYR SC (09:34)
[2020-02-13] MEDS: Fluticasone NASAL SPRAY 16 GM BTL NS (09:34)
[2020-02-13] MEDS: Aspirin E.C. 81 MG TABEC PO (09:35)
[2020-02-13] MEDS: Senna TAB 1 TAB PO (09:35)
[2020-02-13] MEDS: Magnesium Oxide 400 MG TAB 800 MG PO (09:35)
[2020-02-13] MEDS: Docusate Sodium 100 MG CAP PO (09:35)
[2020-02-13] MEDS: Carvedilol 12.5 MG TAB PO (09:35)
[2020-02-13] MEDS: Gabapentin 300 MG CAP 600 MG PO (09:35)
[2020-02-13] MEDS: Pantoprazole 40 MG TABCR PO (09:36)
--- NOTE | 2020-02-13 10:27 | W.NUTRFU ---
Date of service: 02/13/20 Time of Service: 10:28 Nutritional Follow up NOTE: Diet advanced to Heart Healthy with 100% meal completion. Weight has increased by 3 kg in last 4 days, may be scale error, nursing aware. Labs reviewed, improving. Not considered at nutritional risk. Will follow prn. Time Spent in Nutritional Counseling and Treatment: 5 min spent face to face
[2020-02-13 10:47] LABS: Iron 34 ug/dL (65-175); Total Iron Binding Capacity 198 ug/dL (250-450); Transferrin Sat 17 % (20-55)
--- NOTE | 2020-02-13 10:55 | W.INDIABCONS ---
Date of service: 02/13/20 Time of Service: 10:55 Diabetes Inpatient Consult DESCRIPTION/ASSESSMENT: Appreciate diabetes consult for Mr. Alanis who is hospitalized with sepsis related to joint replacement. Mr. Alanis is well known from distant outpatient diabetes self management. A1c 6.6 BMI 42 GFR 45 Blood sugars here 77-164mg/dl taking his usual basal insulin now decreased by 30u to 50 and 20units daily as well as resistant insulin correction. He is eating 100% of all meals and it looks like his is prescribed 20u mealtime insulin but it appears to not be given at this time. INTERVENTION: Given his excellent glycemic control even with an infection, no further intervention suggested. Appreciate the decrease in basal insulin and not giving his 20u aspart for food. PLAN: Will follow blood sugars and follow up as indicated by changes in glycemic control Time Spent in Nutritional Counseling and Treatment: 0 minutes face to face
--- NOTE | 2020-02-13 11:00 | W.PM.PROGNOT ---
Date of Service Date of service: 02/13/20 Time of Service: 11:13 Assessment and Plan Assessment and plan (1) Sepsis: Status: Resolved Assessment and plan: with periprosthetic infection of L knee and Group G strep bacteremia. S/p washout of L knee 02/10/[address] Wilson. Repeat blood cultures are negative @ 24 hours. TTE negative for vegetations. Cardiology consulted to evaluate the patient for a possible AV russell abscess and need for CORRINE. The original port of entry was cellulitis LLE. Read abx discussion above - transition to ceftriaxone 2 grams IV daily and rifampin. May require chronic suppressive abx - will need ID follow up on discharge. Will need a PICC line, but I would like for the blood cultures to remain negative at 48 hours first. Overall, marked clinical improvement. Qualifiers: Sepsis type: sepsis due to unspecified organism Sepsis acute organ dysfunction status: with acute organ dysfunction Severe sepsis acute organ dysfunction type: acute renal failure Acute renal failure type: unspecified Severe sepsis shock status: without septic shock Qualified Code(s): A41.9 - Sepsis, unspecified organism; R65.20 - Severe sepsis without septic shock; N17.9 - Acute kidney failure, unspecified (2) Septic arthritis of knee, left: Status: Acute Assessment and plan: As above Qualifiers: Septic arthritis organism: due to unspecified organism Qualified Code(s): M00.9 - Pyogenic arthritis, unspecified (3) History of total left knee replacement (TKR): Status: Acute Assessment and plan: As above (4) Benign hypertension: Status: Chronic Assessment and plan: Stop coreg given 1st degree AV block. Continue doxazosin. (5) Diabetes mellitus type 2: Status: Chronic Assessment and plan: Decrease basal insulin yet again; d/c scheduled prandial insulin; decrease coverage. (6) Acute kidney injury (nontraumatic): Status: Acute Assessment and plan: In setting of sepsis; Improving even off of IVF. Continue to monitor. (7) Discharge planning issues: Status: Acute Assessment and plan: DNR/DNI Will continue to follow along (8) DVT prophylaxis: Status: Acute Assessment and plan: renally dosed lovenox SC Subjective Subjective Interval history since last seen: Mr Alanis feels better. No pain at this time. Denies dizziness, chest pain/discomfort/pressure, shortness of breath, nausea. Did have a BM. [facility] [place] ended up providing recommendations: 6 weeks of antibiotics from 1st negative blood cultures. Pennicilin G vs ceftriaxone 2 grams daily recommended. Per my conversation with Dr Wilson, we will also continue rifampin at this time. On tele today, CT interval is 0.37, HR 60-90. CT interval was 0.32 on initial presentation and, since then, the beta nuno dose was decreased, so there is still the unanswered question about possible AV russell abscess. Cardiology is consulted. Exam Narrative Exam Narrative: General: Very pleasant obese male, A&Ox3, sitting up in a chair, looks well HEENT: EOMI, MMM Heart: RRR, distant heart sounds, no murmurs Lungs: minimal crackles at R base. Abdomen: soft, nontender, nondistended Extremities: LLE dressed; ice applied. RLE edema > LLE edema Objective Objective Clinical Data: Abnormal lab results 02/13/20 02/13/20 02/13/20 Range/Units 06:11 06:11 06:11 RBC 3.51 L (4.50-6.00) m/cumm Hgb 9.8 L (13.5-17.5) g/dL Hct 30.6 L (40.0-50.0) % RDW 14.8 H (11.8-14.1) % Absolute Lymphocytes 0.67 L (1.2-3.4) k/cumm BUN 29 H D (7-18) mg/dL Creatinine 1.55 H (0.70-1.30) mg/dL Iron 34 L (65-175) ug/dL TIBC 198 L (250-450) ug/dL Transferrin % Sat 17 L (20-55) % C-Reactive Protein 10.38 H (0.0-0.3) mg/dL Vital Signs Temperature 36.9 C 02/13/20 03:45 Temperature Source Tympanic 02/13/20 03:45 Pulse 76 02/13/20 03:45 Pulse Rhythm Regular 02/13/20 04:19 Pulse 72 02/11/20 07:29 Respiratory Rate 19 02/13/20 03:45 Respiratory Effort Non-Labored 02/13/20 04:19 Respiratory Depth Normal 02/13/20 04:19 Respiratory Pattern Normal 02/13/20 04:19 Blood Pressure 134/64 02/13/20 03:45 Blood Pressure Mean 70 02/11/20 07:35 Blood Pressure Position Supine 02/11/20 07:35 Pulse Oximetry 97 02/13/20 03:45 Oxygen Delivery Method Room Air 02/13/20 03:45 Oxygen Flow Rate 0 02/13/20 03:45 Pain Level 4 02/13/20 03:45 Intake & Output 02/12/20 02/12/20 02/13/20 11:59 23:59 11:59 Intake Total 2942.5 / 4872.5 1930.0 / 4872.5 590 / 590 Output Total 1940 / 3495 1555 / 3495 700 / 700 Balance 1002.5 / 1377.5 375.0 / 1377.5 -110 / -110 Weight 134.1 kg 131.3 kg Intake: IV 2082.5 / 3132.5 1050.0 / 3132.5 350 / 350 Oral 860 / 1740 880 / 1740 240 / 240 Output: Urine 1940 / 3495 1555 / 3495 700 / 700 Other: Urine Color Light Carla Yellow Straw Urine Appearance Clear Clear Clear Urine Odor Normal Normal Normal Stool Occult Blood Negative Stool Size Small Moderate Stool Characteristics Liquid Liquid Brown Brown Voiding Methods Urinal Urinal Bedside Commode Laboratory Results WBC 5.95 k/cumm (4.4-10.8) 02/13/20 06:11 RBC 3.51 m/cumm (4.50-6.00) L 02/13/20 06:11 Hgb 9.8 g/dL (13.5-17.5) L 02/13/20 06:11 Hct 30.6 % (40.0-50.0) L 02/13/20 06:11 MCV 87.2 fL (80-95) 02/13/20 06:11 MCH 27.9 pg (27.0-33.0) 02/13/20 06:11 MCHC 32.0 g/dL (32.0-36.0) 02/13/20 06:11 RDW 14.8 % (11.8-14.1) H 02/13/20 06:11 Plt Count 155 x1000/uL (130-400) 02/13/20 06:11 MPV 9.7 fL (8.0-11.0) 02/13/20 06:11 Immature Gran % 0.3 % 02/13/20 06:11 Neutrophils % 75.8 02/13/20 06:11 Lymphocytes % 11.3 02/13/20 06:11 Monocytes % 9.6 02/13/20 06:11 Eosinophils % 2.7 02/13/20 06:11 Basophils % 0.3 02/13/20 06:11 Absolute Neutrophils 4.51 k/cumm (1.2-6.7) 02/13/20 06:11 Absolute Lymphocytes 0.67 k/cumm (1.2-3.4) L 02/13/20 06:11 Absolute Monocytes 0.57 k/cumm (0.11-0.7) 02/13/20 06:11 Absolute Eosinophils 0.16 k/cumm (0.0-0.7) 02/13/20 06:11 Absolute Basophils 0.02 k/cumm (0.0-0.2) 02/13/20 06:11 RBC Morphology See below 02/12/20 05:15 Polychromasia Present 02/12/20 05:15 Anisocytosis 1+ 02/12/20 05:15 PT 11.5 sec (9.3-11.0) H 02/09/20 22:45 INR 1.1 (0.9-1.1) 02/09/20 22:45 APTT 25.1 sec (21.0-31.4) 02/09/20 22:45 D-Dimer 1334 ng/mlFEU (<500) H 02/09/20 22:45 Sodium 141 mmol/L (136-145) 02/13/20 06:11 Potassium 4.0 mmol/L (3.5-5.1) 02/13/20 06:11 Chloride 105 mmol/L (98-107) 02/13/20 06:11 Carbon Dioxide 25.1 mmol/L (21.0-32.0) 02/13/20 06:11 Anion Gap 10.9 mmol/L (3-11) 02/13/20 06:11 BUN 29 mg/dL (7-18) H D 02/13/20 06:11 Creatinine 1.55 mg/dL (0.70-1.30) H 02/13/20 06:11 Estimated GFR/1.73 m2 43.70 (mL/min/1.73m2) 02/13/20 06:11 Glucose 91 mg/dL (74-106) 02/13/20 06:11 Lactate 1.4 mmol/L (0.6-1.4) 02/11/20 12:36 Calcium 8.8 mg/dL (8.5-10.1) 02/13/20 06:11 Magnesium 1.8 mg/dL (1.8-2.4) 02/13/20 06:11 Iron 34 ug/dL (65-175) L 02/13/20 06:11 TIBC 198 ug/dL (250-450) L 02/13/20 06:11 Transferrin % Sat 17 % (20-55) L 02/13/20 06:11 Ferritin 369 ng/mL (26-388) 02/13/20 06:11 Total Bilirubin 0.9 mg/dL (0.2-1.0) 02/10/20 06:15 AST 46 U/L (15-37) H 02/10/20 06:15 ALT 49 U/L (16-63) 02/10/20 06:15 Alkaline Phosphatase 82 U/L (46-116) 02/10/20 06:15 Ammonia 10 umol/L (11-32) L 02/09/20 22:45 Troponin I 0.06 ng/Ml (<0.06) 02/11/20 06:30 C-Reactive Protein 10.38 mg/dL (0.0-0.3) H 02/13/20 06:11 NT-Pro-B Natriuret Pep 169 pg/mL (<300) 02/09/20 22:45 Total Protein 6.6 g/dL (6.4-8.2) 02/10/20 06:15 Albumin 3.4 g/dL (3.4-5.0) 02/10/20 06:15 Vitamin B12 432 pg/mL (193-986) 02/13/20 06:11 Folate 14.7 ng/mL (8.6-20.0) 02/13/20 06:11 Procalcitonin 2.7 ng/mL 02/13/20 06:11 TSH 1.39 uIU/mL (0.36-3.74) 02/09/20 22:45 Urine Color Yellow (Yellow) 02/09/20 23:55 Urine Clarity Clear (Clear) 02/09/20 23:55 Urine pH 6.0 (5-8) 02/09/20 23:55 Ur Specific [place] 1.020 (1.005-1.025) 02/09/20 23:55 Urine Protein Negative mg/dL (Negative) 02/09/20 23:55 Urine Ketones Negative mg/dL (Negative) 02/09/20 23:55 Urine Blood Negative (Negative) 02/09/20 23:55 Urine Nitrite Negative (Negative) 02/09/20 23:55 Urine Bilirubin Negative (Negative) 02/09/20 23:55 Urine Urobilinogen 0.2 EU/dL (Up TO 0.2) 02/09/20 23:55 Ur Leukocyte Esterase Negative (Negative) 02/09/20 23:55 Urine Glucose 500 mg/dL (Negative) H 02/09/20 23:55 Fluid Source L knee 02/10/20 08:00 Fluid Color Yellow 02/10/20 08:00 Fluid Clarity Purulent 02/10/20 08:00 Fluid WBC 968927 /[id number] (0-0) H 02/10/20 08:00 Fluid Mononuclear Cell 5 % (0-0) H 02/10/20 08:00 Fl Polymorphonucl Cell 95 % (0-0) H 02/10/20 08:00 Vancomycin Trough 10.6 ug/mL (10.0-20.0) 02/12/20 20:57 Path Cons Comment See comment 02/10/20 08:00 Echo: Left Ventricle : The left ventricle is normal size. The left ventricular ejection fraction is within the normal range. Borderline concentric left ventricular hypertrophy. There is normal LV segmental wall motion. The left ventricular diastolic function is normal. LVEF is 50-55% Right Ventricle : The right ventricle is normal size. The right ventricular systolic function is normal. Atria : The left atrium size is normal. The right atrium size is normal. Valves: There are no hemodynamically significant valvular lesions. There are no vegetations visualized. Great Vessels : Aortic root is dilated. IVC is normal in size and collapses >50% with inspiration. Estimated RVSP is 19-22 mmHg. See remainder of report for additional details. There is no prior echocardiogram available for comparison.
[2020-02-13 11:15] VITALS: BP 135/67; PULSE 63; RESP 18; TEMP 36.7; O2SAT 96
--- NOTE | 2020-02-13 11:17 | W.CARDCONSUL ---
Date of service: 02/13/20 Time of Service: 11:57 Assessment and Plan Assessment and plan (1) First degree heart block: Status: Acute Assessment and plan: 1. First-degree AV block: In the setting of septic joint and positive blood culture. The echocardiogram did not show any significant valvular vegetations. That said, surface echocardiogram is not as sensitive for detecting vegetations or potential periaortic abscess. It is well documented that heart block can be a feature of those with periaortic abscesses. However, the patient has now 2 blood cultures with no growth after 24 hours as well as no fever and a normalized white count. He has had a washout of his knee where Streptococcus (the bacteria found in his blood on 02/08) was cultured. The patient has a sclerotic aortic valve but it is otherwise normal. He has no significant aortic valve regurgitation which is usually accompanied by valvular endocarditis. The patient has 1 major (bacteremia with atypical organism) and one minor (fever). He has no other physical sequelae. I am reassured by his lack of fever for the past 4 days as well as normalized white count. His CRP is also trending down. ?Would continue IV antibiotics for now ?Continue to monitor blood cultures as well as CRP and white count. ?Would withhold calcium channel blockers or beta blockers ?Do not recommend CORRINE at this point. Should patient's blood cultures turn positive, he develop a fever or elevated white count or other signs of recurrent infection we could reconsider. History of Present Illness History of Present Illness Chief Complaint: Positive blood culture Narrative: Mr. Alanis is a 75-year-old male with past medical history significant for coronary artery disease, type 2 diabetes and a recent knee replacement who presented to the emergency room 3 days ago with fever and malaise. He was found to have a septic joint and underwent a washout with the help of orthopedic surgery. He had a positive blood culture for Streptococcus on 02/08. This same bacteria was found in his prosthetic knee joint. He was started on antibiotics and has now had a negative blood culture x2 for greater than 24 hours. A surface echocardiogram was performed which showed no evidence of vegetations. Cardiology has been consulted for first-degree heart block in the setting of septic joint with positive blood culture 4 days ago. Review of Systems All systems reviewed & are unremarkable except as noted in HPI and below [facility] Medical History Abnormal LFTs (Chronic) Secondary to fartty infiltrate of the liver. Arthritis (Acute) CAD (coronary artery disease) (Chronic) Cellulitis (Acute) RIGHT LOWER LEG Diabetes (Chronic) History of seizures as a child (Acute) Hx of myocardial infarction (Acute) 10/2011 STRESS TEST COMPLETED 11/29/2019 Hyperlipidemia (Acute) Hypertension (Chronic) Renal insufficiency (Chronic) Surgical History colonoscopy (09/02/16) H/O heart artery stent (Chronic) X2 2014 History of tonsillectomy and adenoidectomy (Acute) History of total left knee replacement (TKR) (Acute 12/14/19) Dr. Wilson Family History Maternal Aunt Colon cancer Maternal Aunt Colon cancer Father , 70s Heart disease Social History Smoking/Tobacco Use Status: Former Tobacco Use Alcohol Intake: never Drug use: Never Substance use type: does not use Do you feel safe at home: Yes Do you feel safe in your relationship?: Yes Additional Social history: Lives with his Joellen. 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 Exam Const General: comfortable and no acute distress HENMT Head: normocephalic and atraumatic Eyes General: appearance normal, both eyes and all related structures Resp Effort & Inspection: normal respiratory effort Auscultation: clear to auscultation bilaterally Cardio Jugular venous pressure: no JVD Palpation: normal PMI Rate: regular rate Rhythm: regular rhythm Heart Sounds: S1 normal and S2 normal (No Murmurs, Rubs or Gallops) GI Palpation: soft Auscultation: normoactive bowel sounds Skin General skin exam: no rashes or lesions noted Extrem Other: Cooling pack on left knee. No significant edema. Psych Appearance: grossly normal Results Last Vital Signs Temp 36.9 C 02/13/20 03:45 Pulse 76 02/13/20 03:45 Resp 19 02/13/20 03:45 BP 134/64 02/13/20 03:45 Pulse Ox 97 02/13/20 03:45 Labs Result diagrams: 02/13/20 06:11 02/13/20 06:11 Labs: Laboratory Results - last 24 hr 02/10/20 02/12/20 02/13/20 08:00 20:57 06:11 WBC RBC Hgb Hct MCV MCH MCHC RDW Plt Count MPV Immature Gran % Neutrophils % Lymphocytes % Monocytes % Eosinophils % Basophils % Absolute Neutrophils Absolute Lymphocytes Absolute Monocytes Absolute Eosinophils Absolute Basophils Sodium 141 Potassium 4.0 Chloride 105 Carbon Dioxide 25.1 Anion Gap 10.9 BUN 29 H D Creatinine 1.55 H Estimated GFR/1.73 m2 43.70 Glucose 91 Calcium 8.8 Magnesium 1.8 Iron TIBC Transferrin % Sat Ferritin 369 C-Reactive Protein 10.38 H Vitamin B12 432 Folate 14.7 Procalcitonin Vancomycin Trough 10.6 Path Cons Comment See comment 02/13/20 02/13/20 02/13/20 06:11 06:11 06:11 WBC 5.95 RBC 3.51 L Hgb 9.8 L Hct 30.6 L MCV 87.2 MCH 27.9 MCHC 32.0 RDW 14.8 H Plt Count 155 MPV 9.7 Immature Gran % 0.3 Neutrophils % 75.8 Lymphocytes % 11.3 Monocytes % 9.6 Eosinophils % 2.7 Basophils % 0.3 Absolute Neutrophils 4.51 Absolute Lymphocytes 0.67 L Absolute Monocytes 0.57 Absolute Eosinophils 0.16 Absolute Basophils 0.02 Sodium Potassium Chloride Carbon Dioxide Anion Gap BUN Creatinine Estimated GFR/1.73 m2 Glucose Calcium Magnesium Iron 34 L TIBC 198 L Transferrin % Sat 17 L Ferritin C-Reactive Protein Vitamin B12 Folate Procalcitonin 2.7 Vancomycin Trough Path Cons Comment
--- NOTE | 2020-02-13 11:18 | PDOC.CMPRO ---
- If Service Date Differs Date of service: 02/13/20 Time of Service: 11:19 Care Management Progress Note S/O: Kurtis was sitting up in his chair when CM met with him. He reported that he was feeling good today, and that his pain has been kept under control. Per provider, Kurtis's Echo was negative, but provider is seeking transesophageal echo at this time to r/o endocarditis. Per provider, Kurtis will need 6 weeks of IV abx, which may be able to be accommodated at home through HH and [facility], which will be coordinated by CM once he is medically cleared. He is still acute at this time. CM will continue to follow. A:Kurtis is a 75-year-old admitted with sepsis, with infected left total knee. P: Anticipate Kurtis will need 6 weeks of IV abx. Once Kurtis is medically cleared, CM will coordinate home IV abx through [facility] and [facility], if appropriate. Kurtis would prefer to be home for this treatment. CM will also coordinate PT, if indicated. Kurtis's will drive him home via private vehicle when ready. He will follow up with Ortho and his PCP, as recommended. CM will continue to follow and support discharge planning considerations.
[2020-02-13] MEDS: cefTRIAXone 2 GM/50 ML BAG IVPB (12:36)
--- NOTE | 2020-02-13 14:54 | CHAPLAIN ---
Kurtis was sitting up in his chair when I visited. He is a member of the [facility] and he said people from the mosque have already been in to visit him and will continue to provide support. I let him know that I'm here if I can be of help to him.
--- NOTE | 2020-02-13 15:13 | PTTR_ITS ---
PT Notes Visit Reasons: SEPSIS 02/13/2020 SUBJECTIVE: Kurtis noting decreased pain through the knee this AM. This afternoon he states his stomach is upset and does not feel great. OBJECTIVE: Pt seen in AM and PM for PT treatment. TRANSFERS Sit to stand: Min A Stand to sit: Min A GAIT Device: FWW Weight bearing: AT L Assist: CGA Distance: 25' in the AM, 25' in the PM Deviation: Step to pattern, Wide MICHELE THEREX: Performed seated light LE strengthening exercises bilaterally. See flow sheet. ASSESSMENT: Pt able to increase his gait distance today. He does struggle to advance the left LE forward during gait especially as he fatigues. Pt will benefit from continued PT services to increase strength and saftey with transfers and gait. PLAN: Continue current POC. Treatment time: AM: 20 minutes [id number] PM: 15 minutes [id number] Venus Hale, OPERATIONS ASSOCIATE
[2020-02-13 15:45] VITALS: BP 148/62; PULSE 71; RESP 20; TEMP 36.7; O2SAT 97
--- NOTE | 2020-02-13 17:37 | PGE_ITS ---
Date of Service Date of service: 02/13/20 Time of Service: 12:37 Assessment and Plan Assessment and plan (1) Septic arthritis of knee, left: Status: Acute Assessment and plan: Kurtis is a 75-year-old who is status post left knee debridement irrigation with polyethylene exchange for septic arthritis. He had positive blood cultures and knee cultures of group G streptococcus with negative TTE. He will be able to transition to ceftriaxone 2 g daily. I would recommend to keep rifampin on board given some evidence that rifampin still has a positive effect on bacterial eradication from retained implants even with Streptococcus rather than the traditional staph. He would benefit from home health physical therapy. His current nahid dressing can be removed and a Mepilex silver dressing placed on the wound at the time of discharge. His labs are encouraging and everything is trending in the correct direction. I expect that he will be able to discharge home in the next 1 to 2 days. Qualifiers: Septic arthritis organism: due to unspecified organism Qualified Code(s): M00.9 - Pyogenic arthritis, unspecified Subjective Subjective Interval history since last seen: Kurtis reports that the pain has been steadily getting better. The left hip is not bothering him anymore than it has been. He has been able to ambulate although with some limitations. He does find the knee to be swollen and stiff. He has tried to do the exercises. He denies fevers or chills. No chest pain or shortness of breath. Cultures are growing group G Streptococcus from both the knee and the blood. He is able to void spontaneously without difficulty. Exam Narrative Exam Narrative: Sitting up in the chair. There is some drainage seen on the dressing but not beyond the resorptive boundary. He has difficulty with knee extension. There is notable swelling around the knee and also down to the leg. No erythema is appreciated. No significant pain with gentle passive range of motion from 10 to 80 degrees. Objective Objective Clinical Data: Abnormal lab results 02/13/20 02/13/20 02/13/20 Range/Units 06:11 06:11 06:11 RBC 3.51 L (4.50-6.00) m/cumm Hgb 9.8 L (13.5-17.5) g/dL Hct 30.6 L (40.0-50.0) % RDW 14.8 H (11.8-14.1) % Absolute Lymphocytes 0.67 L (1.2-3.4) k/cumm BUN 29 H D (7-18) mg/dL Creatinine 1.55 H (0.70-1.30) mg/dL Iron 34 L (65-175) ug/dL TIBC 198 L (250-450) ug/dL Transferrin % Sat 17 L (20-55) % C-Reactive Protein 10.38 H (0.0-0.3) mg/dL Intake & Output 02/13/20 02/13/20 11:59 23:59 Intake Total 640 / 1120 480 / 1120 Output Total 700 / 2350 1650 / 2350 Balance -60 / -1230 -1170 / -1230 Weight 131.3 kg Intake: IV 400 / 400 Oral 240 / 720 480 / 720 Output: Urine 700 / 2350 1650 / 2350 Other: Urine Color Straw Light Carla Urine Appearance Clear Clear Urine Odor Normal Normal Comment Stool Occult Blood Negative Stool Size Moderate Stool Characteristics Liquid Brown Voiding Methods Bedside Commode Urinal Laboratory Results WBC 5.95 k/cumm (4.4-10.8) 02/13/20 06:11 RBC 3.51 m/cumm (4.50-6.00) L 02/13/20 06:11 Hgb 9.8 g/dL (13.5-17.5) L 02/13/20 06:11 Hct 30.6 % (40.0-50.0) L 02/13/20 06:11 MCV 87.2 fL (80-95) 02/13/20 06:11 MCH 27.9 pg (27.0-33.0) 02/13/20 06:11 MCHC 32.0 g/dL (32.0-36.0) 02/13/20 06:11 RDW 14.8 % (11.8-14.1) H 02/13/20 06:11 Plt Count 155 x1000/uL (130-400) 02/13/20 06:11 MPV 9.7 fL (8.0-11.0) 02/13/20 06:11 Immature Gran % 0.3 % 02/13/20 06:11 Neutrophils % 75.8 02/13/20 06:11 Lymphocytes % 11.3 02/13/20 06:11 Monocytes % 9.6 02/13/20 06:11 Eosinophils % 2.7 02/13/20 06:11 Basophils % 0.3 02/13/20 06:11 Absolute Neutrophils 4.51 k/cumm (1.2-6.7) 02/13/20 06:11 Absolute Lymphocytes 0.67 k/cumm (1.2-3.4) L 02/13/20 06:11 Absolute Monocytes 0.57 k/cumm (0.11-0.7) 02/13/20 06:11 Absolute Eosinophils 0.16 k/cumm (0.0-0.7) 02/13/20 06:11 Absolute Basophils 0.02 k/cumm (0.0-0.2) 02/13/20 06:11 RBC Morphology See below 02/12/20 05:15 Polychromasia Present 02/12/20 05:15 Anisocytosis 1+ 02/12/20 05:15 PT 11.5 sec (9.3-11.0) H 02/09/20 22:45 INR 1.1 (0.9-1.1) 02/09/20 22:45 APTT 25.1 sec (21.0-31.4) 02/09/20 22:45 D-Dimer 1334 ng/mlFEU (<500) H 02/09/20 22:45 Sodium 141 mmol/L (136-145) 02/13/20 06:11 Potassium 4.0 mmol/L (3.5-5.1) 02/13/20 06:11 Chloride 105 mmol/L (98-107) 02/13/20 06:11 Carbon Dioxide 25.1 mmol/L (21.0-32.0) 02/13/20 06:11 Anion Gap 10.9 mmol/L (3-11) 02/13/20 06:11 BUN 29 mg/dL (7-18) H D 02/13/20 06:11 Creatinine 1.55 mg/dL (0.70-1.30) H 02/13/20 06:11 Estimated GFR/1.73 m2 43.70 (mL/min/1.73m2) 02/13/20 06:11 Glucose 91 mg/dL (74-106) 02/13/20 06:11 Lactate 1.4 mmol/L (0.6-1.4) 02/11/20 12:36 Calcium 8.8 mg/dL (8.5-10.1) 02/13/20 06:11 Magnesium 1.8 mg/dL (1.8-2.4) 02/13/20 06:11 Iron 34 ug/dL (65-175) L 02/13/20 06:11 TIBC 198 ug/dL (250-450) L 02/13/20 06:11 Transferrin % Sat 17 % (20-55) L 02/13/20 06:11 Ferritin 369 ng/mL (26-388) 02/13/20 06:11 Total Bilirubin 0.9 mg/dL (0.2-1.0) 02/10/20 06:15 AST 46 U/L (15-37) H 02/10/20 06:15 ALT 49 U/L (16-63) 02/10/20 06:15 Alkaline Phosphatase 82 U/L (46-116) 02/10/20 06:15 Ammonia 10 umol/L (11-32) L 02/09/20 22:45 Troponin I 0.06 ng/Ml (<0.06) 02/11/20 06:30 C-Reactive Protein 10.38 mg/dL (0.0-0.3) H 02/13/20 06:11 NT-Pro-B Natriuret Pep 169 pg/mL (<300) 02/09/20 22:45 Total Protein 6.6 g/dL (6.4-8.2) 02/10/20 06:15 Albumin 3.4 g/dL (3.4-5.0) 02/10/20 06:15 Vitamin B12 432 pg/mL (193-986) 02/13/20 06:11 Folate 14.7 ng/mL (8.6-20.0) 02/13/20 06:11 Procalcitonin 2.7 ng/mL 02/13/20 06:11 TSH 1.39 uIU/mL (0.36-3.74) 02/09/20 22:45 Urine Color Yellow (Yellow) 02/09/20 23:55 Urine Clarity Clear (Clear) 02/09/20 23:55 Urine pH 6.0 (5-8) 02/09/20 23:55 Ur Specific [place] 1.020 (1.005-1.025) 02/09/20 23:55 Urine Protein Negative mg/dL (Negative) 02/09/20 23:55 Urine Ketones Negative mg/dL (Negative) 02/09/20 23:55 Urine Blood Negative (Negative) 02/09/20 23:55 Urine Nitrite Negative (Negative) 02/09/20 23:55 Urine Bilirubin Negative (Negative) 02/09/20 23:55 Urine Urobilinogen 0.2 EU/dL (Up TO 0.2) 02/09/20 23:55 Ur Leukocyte Esterase Negative (Negative) 02/09/20 23:55 Urine Glucose 500 mg/dL (Negative) H 02/09/20 23:55 Fluid Source L knee 02/10/20 08:00 Fluid Color Yellow 02/10/20 08:00 Fluid Clarity Purulent 02/10/20 08:00 Fluid WBC 849659 /MM3 (0-0) H 02/10/20 08:00 Fluid Mononuclear Cell 5 % (0-0) H 02/10/20 08:00 Fl Polymorphonucl Cell 95 % (0-0) H 02/10/20 08:00 Vancomycin Trough 10.6 ug/mL (10.0-20.0) 02/12/20 20:57 Path Cons Comment See comment 02/10/20 08:00
[2020-02-13 18:45] VITALS: BP 152/64; PULSE 75; RESP 23; TEMP 36.6; O2SAT 95
[2020-02-13] MEDS: Magnesium Oxide 400 MG TAB PO (19:56)
[2020-02-13] MEDS: Gabapentin 300 MG CAP 900 MG PO (19:57)
[2020-02-13] MEDS: Insulin Glargine 300 UNITS/3 ML PEN 20 UNITS SC (19:58)
[2020-02-13 23:32] VITALS: BP 162/86; PULSE 76; RESP 19; TEMP 36.7; O2SAT 98
--- NOTE | 2020-02-14 | DI.US_ITS ---
EXAM: US EXTREMITY VENOUS BI CLINICAL HISTORY: L CALF PAIN, IMMOBILIZATION FROM SEPSIS, ELEVATED D-DIMER. TECHNIQUE: Bilateral lower extremity venous ultrasound performed using grayscale, color-flow, and sp ectral Doppler analysis. COMPARISON: No exams were available for comparison FINDINGS: The bilateral common femoral, femoral and popliteal veins demonstrate normal compressibility, augment ation, and color Doppler. The posterior tibial veins are patent. The saphenofemoral junctions are unr emarkable. There is a 6.5 x 5.9 x 1.0 cm fluid collection in the soft tissues of the medial left thig h. The soft tissues are unremarkable on the right. IMPRESSION: 1. Right: Negative for DVT 2. Left: Negative for DVT 3. 6.5 x 5.9 x 1.0 cm fluid collection in the soft tissues of the medial left thigh. This may repres ent a hematoma or resolving seroma related to the patient's recent surgery. Abscess cannot be entire ly excluded in the appropriate clinical setting. DATA REPOSITORY:
[2020-02-14] MEDS: Acetaminophen 500 MG TAB 1000 MG PO ×3 (02:16→22:02)
[2020-02-14] MEDS: oxyCODONE 5 MG TAB PO ×3 (02:16→22:02)
[2020-02-14 03:27] VITALS: BP 135/64; PULSE 73; RESP 18; TEMP 36.7; O2SAT 95
[2020-02-14] MEDS: rifAMPin 300 MG CAP PO ×2 (06:05→19:46)
[2020-02-14 07:15] LABS: Abs Immature Grans 0.08 k/cumm (0.0-0.09); Absolute Basophil Count 0.01 k/cumm (0.0-0.2); Absolute Eosinophil Count 0.18 k/cumm (0.0-0.7); Absolute Lymphocyte Count 0.65 k/cumm (1.2-3.4); Absolute Monocyte Count 0.65 k/cumm (0.11-0.7); Absolute Neutrophil Count 5.17 k/cumm (1.2-6.7); Basophils % 0.1; Eosinophils % 2.7; HCT 32.1 % (40.0-50.0); HGB 10.3 g/dL (13.5-17.5); Immature Grans % 1.2 %; Lymphocytes % 9.6; Mean Corp. HGB Concentration 32.1 g/dL (32.0-36.0); Mean Corpuscular Hemoglobin 27.8 pg (27.0-33.0); Mean Corpuscular Volume 86.8 fL (80-95); Mean Platelet Volume 9.3 fL (8.0-11.0); Monocytes % 9.6; Neutrophils % 76.8; Platelet Count 185 x1000/uL (130-400); RBC Distribution Width 14.8 % (11.8-14.1); White Blood Cell Count 6.74 k/cumm (4.4-10.8)
[2020-02-14 07:22] VITALS: BP 166/77; PULSE 77; RESP 20; TEMP 36; O2SAT 97
[2020-02-14 07:24] LABS: Anion Gap 8.5 mmol/L (3-11); BUN 24 mg/dL (7-18); C-Reactive Protein 9.29 mg/dL (0.0-0.3); CO2 26.5 mmol/L (21.0-32.0); Calcium 9.2 mg/dL (8.5-10.1); Chloride 103 mmol/L (98-107); Estimated GFR 49.14 (mL/min/1.73m2); Glucose 119 mg/dL (74-106); Magnesium 1.4 mg/dL (1.8-2.4); Potassium 4.1 mmol/L (3.5-5.1); Sodium 138 mmol/L (136-145)
[2020-02-14] MEDS: Nystatin POWDER 60 GM JAR TP ×3 (08:42→20:09)
[2020-02-14] MEDS: Fluticasone NASAL SPRAY 16 GM BTL NS (08:43)
[2020-02-14] MEDS: MAGNESIUM SULFATE 4 GM/100 ML BAG IVPB (08:44)
[2020-02-14] MEDS: Enoxaparin 30 MG/0.3 ML SYR SC (08:44)
[2020-02-14] MEDS: Insulin Aspart 300 UNITS/3 ML PEN SC ×2 (08:45→11:50)
[2020-02-14] MEDS: Pantoprazole 40 MG TABCR PO (08:45)
[2020-02-14] MEDS: Gabapentin 300 MG CAP 600 MG PO (08:45)
[2020-02-14] MEDS: Senna TAB 1 TAB PO ×2 (08:45→19:46)
[2020-02-14] MEDS: Cyanocobalamin 500 MCG TAB 1000 MCG PO (08:45)
[2020-02-14] MEDS: Docusate Sodium 100 MG CAP PO ×2 (08:45→19:46)
[2020-02-14] MEDS: Aspirin E.C. 81 MG TABEC PO (08:45)
[2020-02-14] MEDS: Normal Saline 500 ML 30 ML IV (08:46)
[2020-02-14] MEDS: Magnesium Chloride 64 MG TABCR 128 MG PO ×2 (09:44→22:02)
--- NOTE | 2020-02-14 10:54 | NUR.NOTE ---
Picc insertion Note: Risks and Benefits explained to the patient, and all questions were answered. Consent for placement of Picc Line obtained. Ultrasound-guided Single Lumen 4 Fr. Catheter placed using Sherlock 3CG technology and sterile technique into the Left Basilic Vein. The Basilic Vein was cannulated, a wire and dilator were advanced without resistance followed by an 4 Fr. Picc catheter pre cut to 53 cm then advanced to the Hub on the catheter. P-wave comparison peaked at the Hub using Sherlock 3CG confirmation system confirming placement of the Picc line in the SVC. A biodot was placed then secured with a statlock and Tegaderm dressing. Blood return easily obtained and line flushes easily. The patient tolerated well. Ultrasound images on file. [ End ]
[2020-02-14 11:14] VITALS: BP 157/68; PULSE 76; RESP 21; TEMP 37.3; O2SAT 95
[2020-02-14] MEDS: cefTRIAXone 2 GM/50 ML BAG IVPB (11:59)
[2020-02-14 13:59] VITALS: PULSE 78
--- NOTE | 2020-02-14 14:02 | W.PM.PROGNOT ---
Date of Service Date of service: 02/14/20 Time of Service: 14:02 Subjective Subjective Interval history since last seen: Transferring care to Dr Wilson - Hospitalists are signing off. Recommend a total of 6 weeks of antibiotics (ceftriaxone/rifampin) since 1st neg blood culture (i.e. 02/11) - end date is expected to be 03/24/2020. Will need outpatient referral to ID for discussion about chronic suppressive therapy. Recommend discharging home without carvedilol and with a 30 day event recorder. I am placing ID referral as well as order for a 30 day event referral on discharge. Please, do not hesitate to reconsult the hospitalists if needed. Objective Objective Clinical Data: Abnormal lab results 02/10/20 02/14/20 02/14/20 Range/Units 08:00 06:40 06:40 RBC 3.70 L (4.50-6.00) m/cumm Hgb 10.3 L (13.5-17.5) g/dL Hct 32.1 L (40.0-50.0) % RDW 14.8 H (11.8-14.1) % Absolute Lymphocytes 0.65 L (1.2-3.4) k/cumm BUN 24 H (7-18) mg/dL Creatinine 1.40 H (0.70-1.30) mg/dL Glucose 119 H (74-106) mg/dL Magnesium 1.4 L (1.8-2.4) mg/dL C-Reactive Protein 9.29 H (0.0-0.3) mg/dL Fluid WBC 186816 H (0-0) /MM3 Fluid Mononuclear Cell 5 H (0-0) % Fl Polymorphonucl Cell 95 H (0-0) % Vital Signs Temperature 37.3 C 02/14/20 11:14 Temperature Source Tympanic 02/14/20 11:14 Pulse 78 02/14/20 13:59 Pulse Rhythm Regular 02/14/20 10:30 Pulse 72 02/11/20 07:29 Respiratory Rate 21 02/14/20 11:14 Respiratory Effort Non-Labored 02/14/20 10:30 Respiratory Depth Normal 02/14/20 10:30 Respiratory Pattern Normal 02/14/20 10:30 Blood Pressure 157/68 H 02/14/20 11:14 Blood Pressure Mean 70 02/11/20 07:35 Blood Pressure Position Supine 02/11/20 07:35 Pulse Oximetry 95 02/14/20 11:14 Oxygen Delivery Method Room Air 02/14/20 11:14 Oxygen Flow Rate 0 02/14/20 11:14 Pain Level 2 02/14/20 11:14 Intake & Output 02/13/20 02/14/20 02/14/20 23:59 11:59 23:59 Intake Total 530 / 1170 350 / 724 374 / 724 Output Total 1650 / 2350 1050 / 1550 500 / 1550 Balance -1120 / -1180 -700 / -826 -126 / -826 Weight 129.4 kg Intake: IV 50 / 450 110 / 244 134 / 244 Oral 480 / 720 240 / 480 240 / 480 Output: Urine 1650 / 2350 1050 / 1550 500 / 1550 Other: Urine Color Light Carla Yellow Yellow Urine Appearance Clear Clear Clear Urine Odor Normal Normal Comment patient has urinary discoloration due to Rifampin medication Stool Size Moderate Stool Characteristics Liquid Brown Voiding Methods Urinal Urinal Bedside Commode Laboratory Results WBC 6.74 k/cumm (4.4-10.8) 02/14/20 06:40 RBC 3.70 m/cumm (4.50-6.00) L 02/14/20 06:40 Hgb 10.3 g/dL (13.5-17.5) L 02/14/20 06:40 Hct 32.1 % (40.0-50.0) L 02/14/20 06:40 MCV 86.8 fL (80-95) 02/14/20 06:40 MCH 27.8 pg (27.0-33.0) 02/14/20 06:40 MCHC 32.1 g/dL (32.0-36.0) 02/14/20 06:40 RDW 14.8 % (11.8-14.1) H 02/14/20 06:40 Plt Count 185 x1000/uL (130-400) 02/14/20 06:40 MPV 9.3 fL (8.0-11.0) 02/14/20 06:40 Immature Gran % 1.2 % 02/14/20 06:40 Neutrophils % 76.8 02/14/20 06:40 Lymphocytes % 9.6 02/14/20 06:40 Monocytes % 9.6 02/14/20 06:40 Eosinophils % 2.7 02/14/20 06:40 Basophils % 0.1 02/14/20 06:40 Absolute Neutrophils 5.17 k/cumm (1.2-6.7) 02/14/20 06:40 Absolute Lymphocytes 0.65 k/cumm (1.2-3.4) L 02/14/20 06:40 Absolute Monocytes 0.65 k/cumm (0.11-0.7) 02/14/20 06:40 Absolute Eosinophils 0.18 k/cumm (0.0-0.7) 02/14/20 06:40 Absolute Basophils 0.01 k/cumm (0.0-0.2) 02/14/20 06:40 RBC Morphology See below 02/12/20 05:15 Polychromasia Present 02/12/20 05:15 Anisocytosis 1+ 02/12/20 05:15 PT 11.5 sec (9.3-11.0) H 02/09/20 22:45 INR 1.1 (0.9-1.1) 02/09/20 22:45 APTT 25.1 sec (21.0-31.4) 02/09/20 22:45 D-Dimer 1334 ng/mlFEU (<500) H 02/09/20 22:45 Sodium 138 mmol/L (136-145) 02/14/20 06:40 Potassium 4.1 mmol/L (3.5-5.1) 02/14/20 06:40 Chloride 103 mmol/L (98-107) 02/14/20 06:40 Carbon Dioxide 26.5 mmol/L (21.0-32.0) 02/14/20 06:40 Anion Gap 8.5 mmol/L (3-11) 02/14/20 06:40 BUN 24 mg/dL (7-18) H 02/14/20 06:40 Creatinine 1.40 mg/dL (0.70-1.30) H 02/14/20 06:40 Estimated GFR/1.73 m2 49.14 (mL/min/1.73m2) 02/14/20 06:40 Glucose 119 mg/dL (74-106) H 02/14/20 06:40 Lactate 1.4 mmol/L (0.6-1.4) 02/11/20 12:36 Calcium 9.2 mg/dL (8.5-10.1) 02/14/20 06:40 Magnesium 1.4 mg/dL (1.8-2.4) L 02/14/20 06:40 Iron 34 ug/dL (65-175) L 02/13/20 06:11 TIBC 198 ug/dL (250-450) L 02/13/20 06:11 Transferrin % Sat 17 % (20-55) L 02/13/20 06:11 Ferritin 369 ng/mL (26-388) 02/13/20 06:11 Total Bilirubin 0.9 mg/dL (0.2-1.0) 02/10/20 06:15 AST 46 U/L (15-37) H 02/10/20 06:15 ALT 49 U/L (16-63) 02/10/20 06:15 Alkaline Phosphatase 82 U/L (46-116) 02/10/20 06:15 Ammonia 10 umol/L (11-32) L 02/09/20 22:45 Troponin I 0.06 ng/Ml (<0.06) 02/11/20 06:30 C-Reactive Protein 9.29 mg/dL (0.0-0.3) H 02/14/20 06:40 NT-Pro-B Natriuret Pep 169 pg/mL (<300) 02/09/20 22:45 Total Protein 6.6 g/dL (6.4-8.2) 02/10/20 06:15 Albumin 3.4 g/dL (3.4-5.0) 02/10/20 06:15 Vitamin B12 432 pg/mL (193-986) 02/13/20 06:11 Folate 14.7 ng/mL (8.6-20.0) 02/13/20 06:11 Procalcitonin 2.7 ng/mL 02/13/20 06:11 TSH 1.39 uIU/mL (0.36-3.74) 02/09/20 22:45 Urine Color Yellow (Yellow) 02/09/20 23:55 Urine Clarity Clear (Clear) 02/09/20 23:55 Urine pH 6.0 (5-8) 02/09/20 23:55 Ur Specific [place] 1.020 (1.005-1.025) 02/09/20 23:55 Urine Protein Negative mg/dL (Negative) 02/09/20 23:55 Urine Ketones Negative mg/dL (Negative) 02/09/20 23:55 Urine Blood Negative (Negative) 02/09/20 23:55 Urine Nitrite Negative (Negative) 02/09/20 23:55 Urine Bilirubin Negative (Negative) 02/09/20 23:55 Urine Urobilinogen 0.2 EU/dL (Up TO 0.2) 02/09/20 23:55 Ur Leukocyte Esterase Negative (Negative) 02/09/20 23:55 Urine Glucose 500 mg/dL (Negative) H 02/09/20 23:55 Fluid Source L knee 02/10/20 08:00 Fluid Color Yellow 02/10/20 08:00 Fluid Clarity Purulent 02/10/20 08:00 Fluid WBC 240530 /MM3 (0-0) H 02/10/20 08:00 Fluid Mononuclear Cell 5 % (0-0) H 02/10/20 08:00 Fl Polymorphonucl Cell 95 % (0-0) H 02/10/20 08:00 Vancomycin Trough 10.6 ug/mL (10.0-20.0) 02/12/20 20:57 Path Cons Comment See comment 02/10/20 08:00
[2020-02-14 15:15] VITALS: BP 136/80; PULSE 76; RESP 21; TEMP 36.7; O2SAT 90
--- NOTE | 2020-02-14 15:25 | CMPROGNOTE_ITS ---
- If Service Date Differs Date of service: 02/14/20 Time of Service: 15:25 Care Management Progress Note S/O: Kurtis was sitting up in bed when CM met with. He reported that he was feeling better today. CM discussed IV abx treatment options with Kurtis. Kurtis informed CM that he has [facility]. CM sent referrals to [facility] (with updated ins) and [facility]. [facility] stated that he is out of network, and [facility] stated that they are reviewing the referral and will get back to us as soon as they can. Per MD, he may be ready for discharge on 02/16/20. CM will continue to follow and coordinate plans for discharge. A:Kurtis is a 75-year-old admitted with sepsis, with infected left total knee. P: Anticipate Kurtis will need 6 weeks of IV abx. Once Kurtis is medically cleared, CM will coordinate home IV abx through [facility] and [facility], if appropriate. Kurtis would prefer to be home for this treatment. CM will also coordinate PT, if indicated. Kurtis's will drive him home via private vehicle when ready. He will follow up with Ortho and his PCP, as recommended. CM will continue to follow and support discharge planning considerations.
--- NOTE | 2020-02-14 16:12 | PTTR_ITS ---
Date of service: 02/14/20 Time of Service: 16:12 PT Notes Visit Reasons: SEPSIS 02/14/2020 SUBJECTIVE: Kurtis having some discomfort in the AM through the left foot and calf. In the PM this is improved after getting some pain medication. OBJECTIVE: Seen x 2 for PT treatment. TRANSFERS Sit to stand: MIn A Stand to sit: Min A/CGA GAIT Device: FWW Weight bearing: AT L Assist: CGA Distance: 25' in the AM, 60' in the PM Deviation: Step to pattern THEREX: Light LE strengthening activities performed bilaterally. Manual gastroc and soleus stretching on the left. ASSESSMENT: Pt progressing with PT efforts. He manages to walk greater distance in the PM after he receives pain medications. We will assess out of bed mobility tomorrow and progress with gait. PLAN: As above. Treatment time: 25 minutes [id number], [id number] 30 minutes [id number], [id number] Venus Hale, [employer]
[2020-02-14] MEDS: Normal Saline Flush 10 ML SYR IVP ×2 (17:04→19:56)
[2020-02-14 19:43] VITALS: BP 154/83; PULSE 68; RESP 19; TEMP 37; O2SAT 97
[2020-02-14] MEDS: Gabapentin 300 MG CAP 900 MG PO (19:45)
[2020-02-14] MEDS: Celecoxib 100 MG CAP PO (19:46)
[2020-02-14] MEDS: Insulin Glargine 300 UNITS/3 ML PEN 20 UNITS SC (19:47)
--- NOTE | 2020-02-14 20:59 | PGE_ITS ---
Date of Service Date of service: 02/14/20 Time of Service: 13:59 Assessment and Plan Assessment and plan (1) Septic arthritis of knee, left: Status: Acute Assessment and plan: Kurtis continues to recovery from his septc left knee arthritis with Group G strep and with baceteremia. Blood cultures have been negative x 48 hours. Switched to Ceftriaxone 2g QDay. CBC stable. With the new pain in the left leg, I will order a DVT scan to ensure there is no clot. He does have notable weakness which I think is due to pain, swelling, and the trauma caused by the surgery and the bacteria. He will require continued aggressive PT before he is able to proceed to discharge home. Qualifiers: Septic arthritis organism: due to unspecified organism Qualified Code(s): M00.9 - Pyogenic arthritis, unspecified Subjective Subjective Interval history since last seen: Kurtis reports that he has had some increased pain in the lower left leg. This is worsened when he tries to stand up straight on the leg or actively plantarflex. The hip pain is better. He reports diffuse knee pain, medial and posteriorly the most. He feels that his weakness, in both legs but worse in the left, is worse today and he has had a harder time with mobilization. He denies chest pain or shortness of breath. He has had no fever or chills. Exam Narrative Exam Narrative: Sitting in the chair. NAD. AAOx3. 2+ pitting edema on the LLE, 1+ on the right. Notable pain with palpation of the posterior calf, worsened with dorsiflexion. Pain with active plantarflexion. No Achilles defect. Significant effusion. No SLR but he does demonstrate appropriate patellar movement with quad contract but very weak and apprehensive. No pain with hip range of motion. Decreased sensation throughout the foot per baseline. Some pain with range of motion but tolerates about 10-90 degrees. Objective Objective Clinical Data: Abnormal lab results 02/10/20 02/14/20 02/14/20 Range/Units 08:00 06:40 06:40 RBC 3.70 L (4.50-6.00) m/cumm Hgb 10.3 L (13.5-17.5) g/dL Hct 32.1 L (40.0-50.0) % RDW 14.8 H (11.8-14.1) % Absolute Lymphocytes 0.65 L (1.2-3.4) k/cumm BUN 24 H (7-18) mg/dL Creatinine 1.40 H (0.70-1.30) mg/dL Glucose 119 H (74-106) mg/dL Magnesium 1.4 L (1.8-2.4) mg/dL C-Reactive Protein 9.29 H (0.0-0.3) mg/dL Fluid WBC 873519 H (0-0) /MM3 Fluid Mononuclear Cell 5 H (0-0) % Fl Polymorphonucl Cell 95 H (0-0) % Vital Signs Temperature 37.0 C 02/14/20 19:43 Temperature Source Tympanic 02/14/20 19:43 Pulse 68 02/14/20 19:43 Pulse Rhythm Regular 02/14/20 16:11 Pulse 72 02/11/20 07:29 Respiratory Rate 19 02/14/20 19:43 Respiratory Effort Non-Labored 02/14/20 16:11 Respiratory Depth Normal 02/14/20 16:11 Respiratory Pattern Normal 02/14/20 16:11 Blood Pressure 154/83 H 02/14/20 19:43 Blood Pressure Mean 70 02/11/20 07:35 Blood Pressure Position Supine 02/11/20 07:35 Pulse Oximetry 97 02/14/20 19:43 Oxygen Delivery Method Room Air 02/14/20 19:43 Oxygen Flow Rate 0 02/14/20 19:43 Pain Level 4 02/14/20 15:15 Intake & Output 02/13/20 02/14/20 02/14/20 23:59 11:59 23:59 Intake Total 530 / 1170 350 / 964 614 / 964 Output Total 1650 / 2350 1050 / 1999 950 / 1999 Balance -1120 / -1180 -700 / -1036 -336 / -1036 Weight 129.4 kg Intake: IV 50 / 450 110 / 244 134 / 244 Oral 480 / 720 240 / 720 480 / 720 Output: Urine 1650 / 2350 1050 / 2000 950 / 2000 Other: Urine Color Light Carla Yellow Yellow [place] Urine Appearance Clear Clear Clear Urine Odor Normal Normal Foul Comment patient has urinary discoloration due to Rifampin medication Stool Size Moderate Stool Characteristics Liquid Brown Voiding Methods Urinal Urinal Urinal Laboratory Results WBC 6.74 k/cumm (4.4-10.8) 02/14/20 06:40 RBC 3.70 m/cumm (4.50-6.00) L 02/14/20 06:40 Hgb 10.3 g/dL (13.5-17.5) L 02/14/20 06:40 Hct 32.1 % (40.0-50.0) L 02/14/20 06:40 MCV 86.8 fL (80-95) 02/14/20 06:40 MCH 27.8 pg (27.0-33.0) 02/14/20 06:40 MCHC 32.1 g/dL (32.0-36.0) 02/14/20 06:40 RDW 14.8 % (11.8-14.1) H 02/14/20 06:40 Plt Count 185 x1000/uL (130-400) 02/14/20 06:40 MPV 9.3 fL (8.0-11.0) 02/14/20 06:40 Immature Gran % 1.2 % 02/14/20 06:40 Neutrophils % 76.8 02/14/20 06:40 Lymphocytes % 9.6 02/14/20 06:40 Monocytes % 9.6 02/14/20 06:40 Eosinophils % 2.7 02/14/20 06:40 Basophils % 0.1 02/14/20 06:40 Absolute Neutrophils 5.17 k/cumm (1.2-6.7) 02/14/20 06:40 Absolute Lymphocytes 0.65 k/cumm (1.2-3.4) L 02/14/20 06:40 Absolute Monocytes 0.65 k/cumm (0.11-0.7) 02/14/20 06:40 Absolute Eosinophils 0.18 k/cumm (0.0-0.7) 02/14/20 06:40 Absolute Basophils 0.01 k/cumm (0.0-0.2) 02/14/20 06:40 RBC Morphology See below 02/12/20 05:15 Polychromasia Present 02/12/20 05:15 Anisocytosis 1+ 02/12/20 05:15 PT 11.5 sec (9.3-11.0) H 02/09/20 22:45 INR 1.1 (0.9-1.1) 02/09/20 22:45 APTT 25.1 sec (21.0-31.4) 02/09/20 22:45 D-Dimer 1334 ng/mlFEU (<500) H 02/09/20 22:45 Sodium 138 mmol/L (136-145) 02/14/20 06:40 Potassium 4.1 mmol/L (3.5-5.1) 02/14/20 06:40 Chloride 103 mmol/L (98-107) 02/14/20 06:40 Carbon Dioxide 26.5 mmol/L (21.0-32.0) 02/14/20 06:40 Anion Gap 8.5 mmol/L (3-11) 02/14/20 06:40 BUN 24 mg/dL (7-18) H 02/14/20 06:40 Creatinine 1.40 mg/dL (0.70-1.30) H 02/14/20 06:40 Estimated GFR/1.73 m2 49.14 (mL/min/1.73m2) 02/14/20 06:40 Glucose 119 mg/dL (74-106) H 02/14/20 06:40 Lactate 1.4 mmol/L (0.6-1.4) 02/11/20 12:36 Calcium 9.2 mg/dL (8.5-10.1) 02/14/20 06:40 Magnesium 1.4 mg/dL (1.8-2.4) L 02/14/20 06:40 Iron 34 ug/dL (65-175) L 02/13/20 06:11 TIBC 198 ug/dL (250-450) L 02/13/20 06:11 Transferrin % Sat 17 % (20-55) L 02/13/20 06:11 Ferritin 369 ng/mL (26-388) 02/13/20 06:11 Total Bilirubin 0.9 mg/dL (0.2-1.0) 02/10/20 06:15 AST 46 U/L (15-37) H 02/10/20 06:15 ALT 49 U/L (16-63) 02/10/20 06:15 Alkaline Phosphatase 82 U/L (46-116) 02/10/20 06:15 Ammonia 10 umol/L (11-32) L 02/09/20 22:45 Troponin I 0.06 ng/Ml (<0.06) 02/11/20 06:30 C-Reactive Protein 9.29 mg/dL (0.0-0.3) H 02/14/20 06:40 NT-Pro-B Natriuret Pep 169 pg/mL (<300) 02/09/20 22:45 Total Protein 6.6 g/dL (6.4-8.2) 02/10/20 06:15 Albumin 3.4 g/dL (3.4-5.0) 02/10/20 06:15 Vitamin B12 432 pg/mL (193-986) 02/13/20 06:11 Folate 14.7 ng/mL (8.6-20.0) 02/13/20 06:11 Procalcitonin 2.7 ng/mL 02/13/20 06:11 TSH 1.39 uIU/mL (0.36-3.74) 02/09/20 22:45 Urine Color Yellow (Yellow) 02/09/20 23:55 Urine Clarity Clear (Clear) 02/09/20 23:55 Urine pH 6.0 (5-8) 02/09/20 23:55 Ur Specific [place] 1.020 (1.005-1.025) 02/09/20 23:55 Urine Protein Negative mg/dL (Negative) 02/09/20 23:55 Urine Ketones Negative mg/dL (Negative) 02/09/20 23:55 Urine Blood Negative (Negative) 02/09/20 23:55 Urine Nitrite Negative (Negative) 02/09/20 23:55 Urine Bilirubin Negative (Negative) 02/09/20 23:55 Urine Urobilinogen 0.2 EU/dL (Up TO 0.2) 02/09/20 23:55 Ur Leukocyte Esterase Negative (Negative) 02/09/20 23:55 Urine Glucose 500 mg/dL (Negative) H 02/09/20 23:55 Fluid Source L knee 02/10/20 08:00 Fluid Color Yellow 02/10/20 08:00 Fluid Clarity Purulent 02/10/20 08:00 Fluid WBC [id number] /[id number] (0-0) H 02/10/20 08:00 Fluid Mononuclear Cell 5 % (0-0) H 02/10/20 08:00 Fl Polymorphonucl Cell 95 % (0-0) H 02/10/20 08:00 Vancomycin Trough 10.6 ug/mL (10.0-20.0) 02/12/20 20:57 Path Cons Comment See comment 02/10/20 08:00
[2020-02-15 00:19] VITALS: BP 127/66; PULSE 76; RESP 18; TEMP 36.7; O2SAT 95
[2020-02-15 03:25] VITALS: BP 160/71; PULSE 77; RESP 20; TEMP 36.8; O2SAT 98
[2020-02-15] MEDS: rifAMPin 300 MG CAP PO ×2 (06:15→19:39)
[2020-02-15 07:13] LABS: Anion Gap 9.6 mmol/L (3-11); BUN 21 mg/dL (7-18); CO2 26.4 mmol/L (21.0-32.0); CREATININE 1.24 mg/dL (0.70-1.30); Calcium 9.1 mg/dL (8.5-10.1); Chloride 102 mmol/L (98-107); Estimated GFR 56.53 (mL/min/1.73m2); Glucose 127 mg/dL (74-106); Magnesium 1.6 mg/dL (1.8-2.4); Potassium 4.1 mmol/L (3.5-5.1); Sodium 138 mmol/L (136-145)
[2020-02-15 07:20] VITALS: BP 152/65; PULSE 88; RESP 19; TEMP 37; O2SAT 96
[2020-02-15] MEDS: Fluticasone NASAL SPRAY 16 GM BTL NS (08:08)
[2020-02-15] MEDS: Normal Saline Flush 10 ML SYR IVP ×2 (08:08→19:42)
[2020-02-15] MEDS: Enoxaparin 30 MG/0.3 ML SYR SC (08:09)
[2020-02-15] MEDS: Insulin Aspart 300 UNITS/3 ML PEN SC ×2 (08:09→21:38)
[2020-02-15] MEDS: Cyanocobalamin 500 MCG TAB 1000 MCG PO (08:09)
[2020-02-15] MEDS: Docusate Sodium 100 MG CAP PO ×2 (08:10→19:39)
[2020-02-15] MEDS: Celecoxib 100 MG CAP PO (08:10)
[2020-02-15] MEDS: Aspirin E.C. 81 MG TABEC PO (08:10)
[2020-02-15] MEDS: Senna TAB 1 TAB PO ×2 (08:10→19:40)
[2020-02-15] MEDS: Pantoprazole 40 MG TABCR PO (08:10)
[2020-02-15] MEDS: Gabapentin 300 MG CAP 600 MG PO (08:10)
[2020-02-15] MEDS: Nystatin POWDER 60 GM JAR TP ×2 (08:11→20:12)
[2020-02-15] MEDS: Acetaminophen 500 MG TAB 1000 MG PO (09:07)
[2020-02-15] MEDS: oxyCODONE 5 MG TAB PO ×2 (09:07→15:19)
[2020-02-15] MEDS: Magnesium Chloride 64 MG TABCR 128 MG PO (09:08)
[2020-02-15 11:08] VITALS: BP 138/65; PULSE 72; RESP 18; TEMP 36.5; O2SAT 97
[2020-02-15] MEDS: cefTRIAXone 2 GM/50 ML BAG IVPB (11:51)
[2020-02-15] MEDS: Furosemide 20 MG/2 ML VIAL IVP (13:15)
--- NOTE | 2020-02-15 14:02 | CHAPLAIN ---
Kurtis was sitting up in his chair and easily engaged in a conversation. He is a member of the [facility] [employer], and [employer] members have contacting him. He thinks he may be discharged soon.
--- NOTE | 2020-02-15 14:42 | PT.INTREAT ---
PT Notes Visit Reasons: INFECTED KNEE Inpatient Physical Therapy Treatment Note [facility] Date: 02/15/2020 SUBJECTIVE: Kurtis states that he is feeling better. He has minimal pain in his knee, still had heel/ calf pain but admits this is improved with walking and moving around. OBJECTIVE: BED MOBILITY/TRANSFERS Sit-stand: CGA Stand-sit: SBA GAIT Assistive Device: FWW Weight bearing: WBAT L Assist: CGA Distance: 50' in am and 60' in pm. THEREX: global LE stabilization routine, see flowsheet for details. Cues for proper quad engagement. ASSESSMENT: tolerated session well. Required assistance with SLR initially however after 3 or 4 he was able to perform them independently. Improvement with gait mechanics and stride length. PLAN: continue with PT POC. TREATMENT CODE/TIME: 25 min in am, 25 min in pm. [id number], [id number]
[2020-02-15 15:40] VITALS: BP 130/62; PULSE 78; RESP 18; TEMP 37.1; O2SAT 97
--- NOTE | 2020-02-15 15:49 | CMPROGNOTE_ITS ---
- If Service Date Differs Date of service: 02/15/20 Time of Service: 15:50 Care Management Progress Note S/O: Kurtis was sitting up in his chair when CM met with him. His and grand daughter were in the room. CM explained the process that has been made with Jordon regarding daily infusion. Kurtis stated that he is willing to have home infusion, even if there is a copay. Later in the day, [facility] called Jordon who reported that his [employer] will cover his copay, so he is covered at 100%. CM sent orders to [facility]. CM will continue to follow. A:Kurtis is a 75-year-old admitted with sepsis, with infected left total knee. P: Anticipate Kurtis will return home with new orders for HH RN, PT/OT, once medically cleared. He will receive daily home infusions from [facility] and [facility], coordinated by S[facility]. Kurtis would prefer to be home for this treatment. Kurtis's will drive him home via private vehicle when ready. He will follow up with Ortho and his PCP, as recommended. CM will continue to follow and support discharge planning considerations.
--- NOTE | 2020-02-15 18:29 | PGE_ITS ---
Date of Service Date of service: 02/15/20 Time of Service: 13:29 Assessment and Plan Assessment and plan (1) Septic arthritis of knee, left: Status: Acute Assessment and plan: Kurtis is a 75-year-old status post debridement irrigation of the left knee with poly-exchange and bacteremia with group G strep. He has been transitioned to ceftriaxone 2 g daily. He will be able to go home on this medication. He has had some difficulty with mobilization due to weakness and pain. However, he seems to be makes improvements. Physical therapy reports he has been able to mobilize with less assistance today. I would like to give him a little bit of Lasix to help out with some of the peripheral edema. I will also restart his hydrochlorothiazide. We will continue to hold any beta-blockers calcium channel blockers. Recheck labs in the morning to make sure that his electrolytes have continue to normalize and his creatinine has not increased. Qualifiers: Septic arthritis organism: due to unspecified organism Qualified Code(s): M00.9 - Pyogenic arthritis, unspecified Subjective Subjective Interval history since last seen: Kurtis reports some improvement with his pain. He has been able to mobilize, although minimally. He denies chest pain or shortness of breath. He still continues to complain of bilateral leg pain although the severity of the pain in the heel area feels better per his report. He reports weakness of both knees and legs. Exam Narrative Exam Narrative: Sitting in the chair. He is in no acute distress. Evaluation left knee shows a clean and dry vacuum-assisted dressing. He is able demonstrate quad activity with appropriate movement of the patella although he is still unable to straight leg raise. Some tenderness over the posterior tibial tendon. Mild tenderness of the calf, although better than yesterday. 2+ pitting edema. Objective Objective Clinical Data: Abnormal lab results 02/15/20 Range/Units 06:30 BUN 21 H (7-18) mg/dL Glucose 127 H (74-106) mg/dL Magnesium 1.6 L (1.8-2.4) mg/dL Vital Signs Temperature 37.1 C 02/15/20 15:40 Temperature Source Tympanic 02/15/20 15:40 Pulse 78 02/15/20 15:40 Pulse Rhythm Regular 02/15/20 10:00 Pulse 72 02/11/20 07:29 Respiratory Rate 18 02/15/20 15:40 Respiratory Effort Non-Labored 02/15/20 10:00 Respiratory Depth Normal 02/15/20 10:00 Respiratory Pattern Normal 02/15/20 10:00 Blood Pressure 130/62 02/15/20 15:40 Blood Pressure Mean 70 02/11/20 07:35 Blood Pressure Position Supine 02/11/20 07:35 Pulse Oximetry 97 02/15/20 15:40 Oxygen Delivery Method Room Air 02/15/20 15:40 Oxygen Flow Rate 0 02/15/20 15:40 Pain Level 5 02/15/20 15:40 Intake & Output 02/14/20 02/15/20 02/15/20 23:59 11:59 23:59 Intake Total 664 / 1014 800 / 1040 240 / 1040 Output Total 950 / 2000 525 / 1375 850 / 1375 Balance -286 / -986 275 / -335 -610 / -335 Weight 127.1 kg Intake: IV 184 / 294 Oral 480 / 720 800 / 1040 240 / 1040 Output: Urine 950 / 2000 525 / 1375 850 / 1375 Other: Urine Color Yellow Yellow Straw [place] Urine Appearance Clear Clear Clear Urine Odor Foul Normal Normal Comment pt missed urinal Stool Size Small Small Stool Characteristics Liquid Soft Brown Brown Voiding Methods Urinal Bedside Commode Urinal Laboratory Results WBC 6.74 k/cumm (4.4-10.8) 02/14/20 06:40 RBC 3.70 m/cumm (4.50-6.00) L 02/14/20 06:40 Hgb 10.3 g/dL (13.5-17.5) L 02/14/20 06:40 Hct 32.1 % (40.0-50.0) L 02/14/20 06:40 MCV 86.8 fL (80-95) 02/14/20 06:40 MCH 27.8 pg (27.0-33.0) 02/14/20 06:40 MCHC 32.1 g/dL (32.0-36.0) 02/14/20 06:40 RDW 14.8 % (11.8-14.1) H 02/14/20 06:40 Plt Count 185 x1000/uL (130-400) 02/14/20 06:40 MPV 9.3 fL (8.0-11.0) 02/14/20 06:40 Immature Gran % 1.2 % 02/14/20 06:40 Neutrophils % 76.8 02/14/20 06:40 Lymphocytes % 9.6 02/14/20 06:40 Monocytes % 9.6 02/14/20 06:40 Eosinophils % 2.7 02/14/20 06:40 Basophils % 0.1 02/14/20 06:40 Absolute Neutrophils 5.17 k/cumm (1.2-6.7) 02/14/20 06:40 Absolute Lymphocytes 0.65 k/cumm (1.2-3.4) L 02/14/20 06:40 Absolute Monocytes 0.65 k/cumm (0.11-0.7) 02/14/20 06:40 Absolute Eosinophils 0.18 k/cumm (0.0-0.7) 02/14/20 06:40 Absolute Basophils 0.01 k/cumm (0.0-0.2) 02/14/20 06:40 RBC Morphology See below 02/12/20 05:15 Polychromasia Present 02/12/20 05:15 Anisocytosis 1+ 02/12/20 05:15 PT 11.5 sec (9.3-11.0) H 02/09/20 22:45 INR 1.1 (0.9-1.1) 02/09/20 22:45 APTT 25.1 sec (21.0-31.4) 02/09/20 22:45 D-Dimer 1334 ng/mlFEU (<500) H 02/09/20 22:45 Sodium 138 mmol/L (136-145) 02/15/20 06:30 Potassium 4.1 mmol/L (3.5-5.1) 02/15/20 06:30 Chloride 102 mmol/L (98-107) 02/15/20 06:30 Carbon Dioxide 26.4 mmol/L (21.0-32.0) 02/15/20 06:30 Anion Gap 9.6 mmol/L (3-11) 02/15/20 06:30 BUN 21 mg/dL (7-18) H 02/15/20 06:30 Creatinine 1.24 mg/dL (0.70-1.30) 02/15/20 06:30 Estimated GFR/1.73 m2 56.53 (mL/min/1.73m2) 02/15/20 06:30 Glucose 127 mg/dL (74-106) H 02/15/20 06:30 Lactate 1.4 mmol/L (0.6-1.4) 02/11/20 12:36 Calcium 9.1 mg/dL (8.5-10.1) 02/15/20 06:30 Magnesium 1.6 mg/dL (1.8-2.4) L 02/15/20 06:30 Iron 34 ug/dL (65-175) L 02/13/20 06:11 TIBC 198 ug/dL (250-450) L 02/13/20 06:11 Transferrin % Sat 17 % (20-55) L 02/13/20 06:11 Ferritin 369 ng/mL (26-388) 02/13/20 06:11 Total Bilirubin 0.9 mg/dL (0.2-1.0) 02/10/20 06:15 AST 46 U/L (15-37) H 02/10/20 06:15 ALT 49 U/L (16-63) 02/10/20 06:15 Alkaline Phosphatase 82 U/L (46-116) 02/10/20 06:15 Ammonia 10 umol/L (11-32) L 02/09/20 22:45 Troponin I 0.06 ng/Ml (<0.06) 02/11/20 06:30 C-Reactive Protein 9.29 mg/dL (0.0-0.3) H 02/14/20 06:40 NT-Pro-B Natriuret Pep 169 pg/mL (<300) 02/09/20 22:45 Total Protein 6.6 g/dL (6.4-8.2) 02/10/20 06:15 Albumin 3.4 g/dL (3.4-5.0) 02/10/20 06:15 Vitamin B12 432 pg/mL (193-986) 02/13/20 06:11 Folate 14.7 ng/mL (8.6-20.0) 02/13/20 06:11 Procalcitonin 2.7 ng/mL 02/13/20 06:11 TSH 1.39 uIU/mL (0.36-3.74) 02/09/20 22:45 Urine Color Yellow (Yellow) 02/09/20 23:55 Urine Clarity Clear (Clear) 02/09/20 23:55 Urine pH 6.0 (5-8) 02/09/20 23:55 Ur Specific [place] 1.020 (1.005-1.025) 02/09/20 23:55 Urine Protein Negative mg/dL (Negative) 02/09/20 23:55 Urine Ketones Negative mg/dL (Negative) 02/09/20 23:55 Urine Blood Negative (Negative) 02/09/20 23:55 Urine Nitrite Negative (Negative) 02/09/20 23:55 Urine Bilirubin Negative (Negative) 02/09/20 23:55 Urine Urobilinogen 0.2 EU/dL (Up TO 0.2) 02/09/20 23:55 Ur Leukocyte Esterase Negative (Negative) 02/09/20 23:55 Urine Glucose 500 mg/dL (Negative) H 02/09/20 23:55 Fluid Source L knee 02/10/20 08:00 Fluid Color Yellow 02/10/20 08:00 Fluid Clarity Purulent 02/10/20 08:00 Fluid WBC 006849 /MM3 (0-0) H 02/10/20 08:00 Fluid Mononuclear Cell 5 % (0-0) H 02/10/20 08:00 Fl Polymorphonucl Cell 95 % (0-0) H 02/10/20 08:00 Vancomycin Trough 10.6 ug/mL (10.0-20.0) 02/12/20 20:57 Path Cons Comment See comment 02/10/20 08:00
[2020-02-15] MEDS: Multivitamin w/Minerals TAB 1 TAB PO (19:39)
[2020-02-15] MEDS: Gabapentin 300 MG CAP 900 MG PO (19:40)
[2020-02-15] MEDS: Magnesium Oxide 400 MG TAB PO (19:41)
[2020-02-15] MEDS: Naproxen 375 MG TAB PO (19:41)
[2020-02-15] MEDS: Insulin Glargine 300 UNITS/3 ML PEN 20 UNITS SC (20:12)
[2020-02-15 22:50] VITALS: BP 134/64; PULSE 83; RESP 19; TEMP 37; O2SAT 95
[2020-02-16 03:27] VITALS: BP 141/71; PULSE 79; RESP 19; TEMP 36.5; O2SAT 94
[2020-02-16] MEDS: oxyCODONE 5 MG TAB PO (06:16)
[2020-02-16] MEDS: rifAMPin 300 MG CAP PO (06:16)
[2020-02-16] MEDS: Acetaminophen 500 MG TAB 1000 MG PO (06:16)
[2020-02-16 07:15] VITALS: BP 146/69; PULSE 75; RESP 18; TEMP 36.5; O2SAT 96
[2020-02-16 07:22] LABS: HCT 32.5 % (40.0-50.0); HGB 10.3 g/dL (13.5-17.5); Mean Corp. HGB Concentration 31.7 g/dL (32.0-36.0); Mean Corpuscular Hemoglobin 27.3 pg (27.0-33.0); Mean Corpuscular Volume 86.2 fL (80-95); Mean Platelet Volume 9.1 fL (8.0-11.0); Platelet Count 256 x1000/uL (130-400); RBC 3.77 m/cumm (4.50-6.00); RBC Distribution Width 14.8 % (11.8-14.1); White Blood Cell Count 6.61 k/cumm (4.4-10.8)
[2020-02-16 07:25] LABS: Anion Gap 8.6 mmol/L (3-11); BUN 26 mg/dL (7-18); CO2 26.4 mmol/L (21.0-32.0); CREATININE 1.27 mg/dL (0.70-1.30); Chloride 103 mmol/L (98-107); Estimated GFR 54.99 (mL/min/1.73m2); Glucose 125 mg/dL (74-106); Potassium 4.2 mmol/L (3.5-5.1); Sodium 138 mmol/L (136-145)
[2020-02-16 07:27] LABS: C-Reactive Protein 13.44 mg/dL (0.0-0.3)
[2020-02-16 08:35] VITALS: O2SAT 96
[2020-02-16] MEDS: Magnesium Oxide 400 MG TAB 800 MG PO (08:37)
[2020-02-16] MEDS: hydroCHLOROthiazide 25 MG TAB 50 MG PO (08:38)
[2020-02-16] MEDS: Naproxen 375 MG TAB PO (08:38)
[2020-02-16] MEDS: Gabapentin 300 MG CAP 600 MG PO (08:39)
[2020-02-16] MEDS: Senna TAB 1 TAB PO (08:39)
[2020-02-16] MEDS: Nystatin POWDER 60 GM JAR TP (08:39)
[2020-02-16] MEDS: Cyanocobalamin 500 MCG TAB 1000 MCG PO (08:39)
[2020-02-16] MEDS: Multivitamin w/Minerals TAB 1 TAB PO (08:39)
[2020-02-16] MEDS: Docusate Sodium 100 MG CAP PO (08:40)
[2020-02-16] MEDS: Aspirin E.C. 81 MG TABEC PO (08:40)
[2020-02-16] MEDS: Fluticasone NASAL SPRAY 16 GM BTL NS (08:40)
[2020-02-16] MEDS: Pantoprazole 40 MG TABCR PO (08:40)
[2020-02-16] MEDS: Enoxaparin 30 MG/0.3 ML SYR SC (08:40)
[2020-02-16] MEDS: Normal Saline Flush 10 ML SYR IVP (08:41)
--- NOTE | 2020-02-16 08:53 | DSE_ITS ---
Date of service: 02/16/20 Time of Service: 07:53 DS: Diagnosis Discharge Diagnosis (1) Septic arthritis of knee, left: Status: Acute Asessment and Plan: s/p debridement, irrigation, and poly exchange. Treated with local antibiotics and systemic antibiotics. Culture with Group G streptococcus. Final antibiotics Rifampin and Ceftriaxone. (2) First degree heart block: Status: Acute Asessment and Plan: On admission. Stable on telemetry. (3) Acute kidney injury (nontraumatic): Status: Resolved Asessment and Plan: Resolved with fluid rehydration and treatment of sepsis/bacteremia. (4) Sepsis: Status: Resolved Asessment and Plan: Group G streptococcus. Second set of blood cultures negative and Midline placed. Ceftriaxone 2g daily. Discharge Plan Disposition Patient Disposition: [facility] SWING BED LEVEL 1 Condition: Improving Discharge Details Chief Complaint: Fever Clinical Impression: Sepsis, Cellulitis Reason For Visit: INFECTED KNEE Admit Date/Time: 02/09/20 23:59 Admit Provider: Yrn Wilson Attending Provider: Yrn Wilson Primary Care Provider: Patrice Camejo ED Provider: Reymundo Moulton Hospital Course Hospital Course: Kurtis was admitted to the hospital for signs and symptoms of sepsis. He had an elevated white count, fever, fatigue and notable cellulitis of the left leg. T he left knee was then aspirated and was grossly purulent. He was taken to the OR that day for I&D and polyehtylene exchange. He was initially in the ICU for monitoring and received broad spectrum antibiotics. The blood cultures and knee aspirate grew Group G streptococus. He had HANNAH diagnosed on admission which was treated with IVF rehydration and slowly improved. He had a general improvement with a second set of blood cultures negative. He was then transitioned out of the ICU and a Midline was placed. Anitibiotics were switched to Ceftriaxone 2g daily with continuing Rifampin 300mg BID due to retained hardware in the knee. He continued with PT but had notable weakness. He complained of some pain which had worsened in the left calf and thus a DVT study was performed and was negati ve. He was diagnosed with a first degree AV block on admission which did not change even after discontinuing the russell blockade medications he was taking at home. TTE showed no signs of valvular or russell lesions. His fevers had completely resolved and his CRP had decreased although not returned to normal. WBC had returned to normal over multiple days. On HD#7 he had symptomatically recovered from the sepsis, bacteremia, and HANNAH. He was still weak and slowly progressing with mobilization so he was transferred to Swing Bed status for continued physical therapy and IV antibiotics. Home Meds and New Rx's Prescriptions: No Action carvedilol 12.5 MG tablet 25 mg PO BID RF: 0 hydrochlorothiazide 50 MG tablet 25 mg PO DAILY RF: 0 magnesium oxide 400 MG tablet See Rx Instructions .ROUTE .COMPLEX RF: 0 gabapentin 300 MG capsule See Rx Instructions .ROUTE .COMPLEX RF: 0 losartan [Cozaar] 100 MG tablet 100 mg PO DAILY RF: 0 nitroglycerin [Nitrostat] 0.4 MG tablet, sublingual 0.4 mg Sublingual Q5 MIN PRN X3 PRNQty: 15 RF: 0 insulin lispro [Humalog KwikPen Insulin] 100 UNIT/ML insulin pen SQ .SLIDING SCALE RF: 0 Lantus Solostar U-100 Insulin 300 UNITS/3 ML insulin pen See Rx Instructions .ROUTE .COMPLEX RF: 0 Jardiance 10 MG tablet 25 mg PO DAILY RF: 0 doxazosin 4 mg Tablet 4 mg PO HS RF: 0 naproxen 375 mg Tablet 375 mg PO BID Qty: 60 RF: 3 acetaminophen 500 mg tablet 1,000 mg PO Q8H PRN (Reason: pain) Qty: 90 RF: 3 pantoprazole 40 mg tablet,delayed release (DR/EC) 40 mg PO DAILY Qty: 30 RF: 0 oxycodone 5 mg tablet 5 mg PO Q4H Qty: 15 RF: 0 fluticasone propionate 50 mcg/actuation [place],Suspension 1 spray INTRANASAL DAILY RF: 0 aspirin [Aspir-81] 81 MG tablet,delayed release (DR/EC) 1 tab PO DAILY RF: 0 Discharge Instructions Additional Instructions: Admit to Swing Bed status. [place] [place] - (Group G strep bacteremia and prosthetic knee infection post washout, retained hardware; Consult for need for chronic antibiotic therapy) Yrn Wilson MD [ [facility] STAFF PHYSICIAN] - Patrice Camejo MD [Primary Care Provider] - Activity:: Activity as Tolerated Equipment/Supplies:: No Equipment Needed Diet:: As Tolerated Discharge Orders Other Ambulatory Orders: Cardiac Event Recorder (Outpt) (ONCE) Timeframe: 20200215 Facility: [facility] - Location: Respiratory Therapy Ordered By: Delilah Ron DS: Summary Status at Discharge Functional status at discharge: uses cane/walker Overall status at discharge: patient is progressing back to baseline Mental Status: mental status grossly normal Speech and Movement: speech and movement normal Mood: congruent mood Affect: normal affect Exam Const General: cooperative, comfortable and no acute distress Nutritional Appearance: overweight Orientation: alert, awake and oriented x3 Extrem Other: Dressing is dry and intact with a small area of discharge. He is able to straight leg raise with a lag of about 15-20 degrees. He tolerates gentle range of motion without pain. Notable effusion and swelling. SILT DP/SP/Tib but generally decreased about the foot. Palpable DP/PT pulse. Psych Mental Status: mental status grossly normal Speech and Movement: speech and movement normal Mood: congruent mood Affect: normal affect DS: Data Vitals/I&O Vitals and I&O: Vital Signs Temperature 36.5 C 02/16/20 07:15 Temperature Source Tympanic 02/16/20 07:15 Pulse 75 02/16/20 07:15 Pulse Rhythm Regular 02/16/20 01:09 Pulse 72 02/11/20 07:29 Respiratory Rate 18 02/16/20 07:15 Respiratory Effort 02/16/20 01:09 Respiratory Depth Normal 02/16/20 01:09 Respiratory Pattern Normal 02/16/20 01:09 Blood Pressure 146/69 H 02/16/20 07:15 Blood Pressure Mean 70 02/11/20 07:35 Blood Pressure Position Supine 02/11/20 07:35 Pulse Oximetry 96 02/16/20 07:15 Oxygen Delivery Method Room Air 02/16/20 07:15 Oxygen Flow Rate 0 02/16/20 07:15 Pain Level 3 02/16/20 07:15 Intake & Output 02/15/20 02/15/20 02/16/20 11:59 23:59 11:59 Intake Total 800 / 1300 500 / 1300 10 Output Total 525 / 2200 1675 / 2200 675 / 675 Balance 275 / -900 -1175 / -900 -665 / -665 Weight 127.1 kg 120.9 kg Intake: IV 10 10 Oral 800 / 1280 480 / 1280 Output: Urine 525 / 2200 1675 / 2200 675 / 675 Other: Urine Color Yellow Yellow Yellow Urine Appearance Clear Clear Clear Urine Odor Normal Normal None Comment pt missed urinal Stool Size Small Small Moderate Stool Characteristics Liquid Soft Liquid Brown Brown Brown Voiding Methods Bedside Commode Urinal Urinal Data Completed and Pending Labs on day of discharge: Labs from last 24 hours 02/16/20 02/16/20 02/16/20 06:30 06:30 06:30 WBC 6.61 RBC 3.77 L Hgb 10.3 L Hct 32.5 L MCV 86.2 MCH 27.3 MCHC 31.7 L RDW 14.8 H Plt Count 256 MPV 9.1 Sodium 138 Potassium 4.2 Chloride 103 Carbon Dioxide 26.4 Anion Gap 8.6 BUN 26 H Creatinine 1.27 Estimated GFR/1.73 m2 54.99 Glucose 125 H Calcium 9.0 C-Reactive Protein 13.44 H Preliminary micro results at discharge 02/12/20 05:15 Blood Culture - Preliminary Blood NO GROWTH 96 HOURS 02/12/20 05:30 Blood Culture - Preliminary Blood NO GROWTH 96 HOURS COUNT INCLUDES THE [facility] Medical History Abnormal LFTs (Chronic) Secondary to fartty infiltrate of the liver. Arthritis (Acute) CAD (coronary artery disease) (Chronic) Cellulitis (Acute) RIGHT LOWER LEG Diabetes (Chronic) History of seizures as a child (Acute) Hx of myocardial infarction (Acute) 10/2011 STRESS TEST COMPLETED 11/29/2019 Hyperlipidemia (Acute) Hypertension (Chronic) Renal insufficiency (Chronic) Surgical History colonoscopy (09/02/16) H/O heart artery stent (Chronic) X2 2014 History of tonsillectomy and adenoidectomy (Acute) History of total left knee replacement (TKR) (Acute 12/14/19) Dr. Wilson Family History Maternal Aunt Colon cancer Maternal Aunt Colon cancer Father , 70s Heart disease Social History Smoking/Tobacco Use Status: Former Tobacco Use Alcohol Intake: never Drug use: Never Substance use type: does not use Do you feel safe at home: Yes Do you feel safe in your relationship?: Yes Additional Social history: Lives with his Jessica and Amy. 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
--- NOTE | 2020-02-16 11:50 | INDS_ITS ---
PT Notes Visit Reasons: INFECTED KNEE Date: February 16, 2020 Treatment Dates: February 11, 2020 - February 16, 2020 Referring Doctor: Yrn Wilson MD PT Orders: PT CONSULT: s/p L TKA I&D and poly exchange Precautions: Fall risk Patient Profile/Admitting Diagnosis: Patient underwent left total knee replacement in mid November 2019. Was brought to the ER secondary to increased knee knee pain. Patient was loading his wood stove and dropped a piece of wood on his lower left landers. States that he attempted walking and felt his knee give out. PMHX: Medical History (Updated 02/10/20 @ 00:52 by Reymundo Moulton DO) Arthritis (Acute) CAD (coronary artery disease) (Chronic) Cellulitis (Acute) RIGHT LOWER LEG Diabetes (Chronic) History of seizures as a child (Acute) Hx of myocardial infarction (Acute) 10/2011 STRESS TEST COMPLETED 11/29/2019 Hyperlipidemia (Acute) Hypertension (Chronic) Renal insufficiency (Chronic) Surgical History (Updated 12/29/19 @ 12:14 by JOURDAN Crump) colonoscopy (09/02/16) H/O heart artery stent (Chronic) X2 2014 History of tonsillectomy and adenoidectomy (Acute) History of total left knee replacement (TKR) (Acute 12/14/19) Dr. Wilson Social History/Home Situation: Pt lives in [place] with his . Notes there is a ramp to the front door and no stairs in the home. 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 Equipment Owned/DME: Cane and crutches and front wheeled walker Subjective: Patient states that he is feeling good this morning. He notes stiffness in both knees. Admits to a single fall prior to admission, but states that prior to that he hasn't had any serious falls. Objective: General Observation: wound drain left Mental Status: Alert and oriented x3 Pain: 3/10 left knee ROM: Right Upper Extremity: Shoulder Flexion WFL. Shoulder abduction WFL. Elbow flexion WFL. Wrist flexion WFL. Opening and closing of hand WFL. Left Upper Extremity: Shoulder Flexion WFL. Shoulder abduction WFL. Elbow flexion WFL. Wrist flexion WFL. Opening and closing of hand WFL. Right Lower Extremity: Hip flexion WFL. Hip abduction WFL. Knee flexion WFL. An kle dorsiflexion WFL. Ankle plantarflexion WFL. Left Lower Extremity: Hip flexion WFL. Hip abduction WFL. Knee flexion 90 degrees. Knee extension -5 degrees. Ankle dorsiflexion WFL. Ankle plantarflex ion WFL. Strength: Right Upper Extremity: Shoulder flexors 5/5. Shoulder abductors 5/5. Elbow flexors 5/5. Elbow extensors 5/5. Health Care Manager strong. Left Upper Extremity: Shoulder flexors 5/5. Shoulder abductors 5/5. Elbow flexors 5/5. Elbow extensors 5/5. Health Care Manager strong. Right Lower Extremity: Hip flexors 5/5. Hip abductors 5/5. Knee flexors 5/5. Knee extensors 5/5. Ankle dorsiflexors 4-/5. Ankle plantarflexors 5/5. Left Lower Extremity: Hip flexors 4/5. Hip abductors 5/5. Knee flexors 4-/5. Knee extensors 3+/5. Ankle dorsiflexors 4/5. Ankle plantarflexors 5/5. Sensation: Intact as to pain and pressure on bilateral lower extremities Bed Mobility/Transfers: Sit?stand: Min assist to front wheeled walker Stand?sit: Min assist from wheeled walker, with cues for technique and decreased safety awareness Gait: Ambulates 100' feet with front wheeled walker and contact-guard. Patient demonstrates minor losses of balance requiring lateral steps for recovery throughout ambulation. Requires CGA-min A during turning, with minor, posteriorly directed LOB. Balance: Static Sitting: Good Dynamic Sitting: Good Static Standing: Fair Dynamic Standing: poor Special Tests: Mobility Limitations Standardized Measure [facility] AM-PAC 6 clicks Basic Mobility Inpatient Short Form: Raw Score: 17 CMS Score: 51% impairment Informed Consent/Education: Patient instructed in purpose of PT consult and plan of care. Discussed POC, which patient verbalizes agreement with. Treatment: See initial evaluation with today's date. All treatment and associated charges noted in Initial Evaluation. Assessment: Patient is a 75 year old male referred to physical therapy services with the diagnosis of status post washout left total knee replacement secondary to sepsis. Patient demonstrates clinical signs and symptoms consistent with postoperative status. He has been receiving PT intervention in an acute care setting for 7 sessions over the past 5 days. He continues to demonstrate mobility deficits, and requires additional PT intervention with swing bed level care to allow for safe transition back home. He currently demonstrates the following impairment level findings: 1. Decreased strength to LLE hip and knee major muscle groups 2. Impaired standing balance 3. Impaired activity tolerance 4. Limitation of joint range of motion in L knee Impairments are contributing to the following functional limitations: 1. Increased dependence with transfers 2. Inability to safely ambulate without assistive device and physical assistance 3. Increase completion time for mobility ADL performance 4. Increased fall risk 5. Inability to negotiate steps alone safely Goals: Goals X1 week 1. Sit-Stand independent (not met) 2. Stand-Sit independent(not met) 3. Bed-Chair independent(not met) 4. Chair-Bed independent(not met) 5. Independent gait on level surface with use of least restrictive device for at least 300 feet without report of pain nor dyspnea(not met) 6. Independent stair negotiation while holding onto bilateral rails for at least 5 steps without report of pain nor dyspnea(not met) 7. Independent with home exercise program(not met) 8. Good static and dynamic standing balance/tolerance(not met) Plan of Care/Treatment Plan: 1-2x/day, 7 days/week x 1 week. Plan of care has been reviewed with the CHILD WELFARE ASSISTANT providing the service under Physical Therapy direction. Initiate Physical Therapy intervention for strengthening, bed mobility, transfers, gait, stairs, balance training, use of assistive device. DISCHARGE RECOMMENDATIONS: Transition to Swing Bed level of care for ongoing PT intervention prior to return home. TREATMENT CODE/TIME: none Parvin Seymour, PT, DPT [facility]
--- NOTE | 2020-02-16 17:48 | PDOC.CMPRO ---
- If Service Date Differs Date of service: 02/16/20 Time of Service: 17:48 Care Management Progress Note S/O: Kurtis was sitting up in his chair when CM met with him. He reported that he is making progress with PT, slowly. CM discussed SWB status with Kurtis and answered any questions he had regarding the transition. Per Dr. Wilson, he will need additional time working with inpatient PT before returning home. He will also continue his IV abx while on SWB. Kurtis is agreeable to staying. CM contacted and [facility] to let them know of the delay in services. CM will continue to follow. A:Kurtis is a 75-year-old admitted with sepsis, with infected left total knee. P: Kurtis will transition to SWB level One for continued support from inpatient PT, as well as IV abx. Anticipate Kurtis will return home with new orders for RN, PT/OT, once medically cleared. He will receive daily home infusions from [facility] and [facility], coordinated by CM. Kurtis would prefer to be home for this treatment. Kurtis's will drive him home via private vehicle when ready. He will follow up with Ortho and his PCP, as recommended. CM will continue to follow and support discharge planning considerations.
== END 2020-02-16 10:37 | disposition swing bed (61) | DRG 854 ==
LOC: ER 02-10 00:52 → ICU 02-10 01:12 → MS 02-15 10:40 → ICU 02-17 10:12 → MS 02-17 10:12
PROVIDERS: Family Medicine; Internal Medicine; Admitting Provider Student in an Organized Health Care Education/Training Program; Emergency Provider Student in an Organized Health Care Education/Training Program; PCP Internal Medicine; Visit Provider Student in an Organized Health Care Education/Training Program
PROC: 0SPD09Z Removal of Liner from Left Knee Joint, Open Approach (ICD-10-PCS; CPT 27335; principal; 2020-02-10 15:15)
DX: A40.8 Other streptococcal sepsis (principal); T84.54XA Infection and inflammatory reaction due to internal left knee prosthesis, initial encounter; M00.262 Other streptococcal arthritis, left knee; N17.9 Acute kidney failure, unspecified; L03.116 Cellulitis of left lower limb; R65.20 Severe sepsis without septic shock; Z96.652 Presence of left artificial knee joint; B95.4 Other streptococcus as the cause of diseases classified elsewhere; I44.0 Atrioventricular block, first degree; M79.662 Pain in left lower leg; W22.8XXA Striking against or struck by other objects, initial encounter; R53.1 Weakness; I95.89 Other hypotension; E11.9 Type 2 diabetes mellitus without complications; I25.10 Atherosclerotic heart disease of native coronary artery without angina pectoris; E78.5 Hyperlipidemia, unspecified; I10 Essential (primary) hypertension; N28.9 Disorder of kidney and ureter, unspecified; R79.1 Abnormal coagulation profile; G47.33 Obstructive sleep apnea (adult) (pediatric); K75.81 Nonalcoholic steatohepatitis (NASH); Z66 Do not resuscitate; E66.9 Obesity, unspecified; Z71.3 Dietary counseling and surveillance
CPT/HCPCS: 27486; 27335; 36415; 36569; 80048; 80053; 84145; 85027; 87040; 87077; 87449; 93005; 93306; 96361; 96365; 96367; 96372; 97110; 97162; 97530; 99223; 99232; 99233; 99253; 99254; 99285; 99354; NC; 71046; 80202; 81003; 82140; 82607; 82728; 82746; 83540; 83550; 83605; 83735; 83880; 84443; 84484; 85025; 85379; 85610; 85730; 86140; 87070; 87086; 87205; 89051; 93010; 93970; 94660; J0690; J1650; J1885; J1941; J2001; J2543; J2704; J3010; J3370; J3475

== ENCOUNTER → 2020-02-13 11:37 | Outpatient (BNVA) | payer OTHER, SELFPAY | PROVIDERS: PCP Internal Medicine; Referring Provider Internal Medicine; Visit Provider Internal Medicine Cardiovascular Disease | DX: R69 Illness, unspecified (principal) ==

== ENCOUNTER 2020-02-16 10:37 | Inpatient (IN) | payer OTHER, SELFPAY ==
[2020-02-16 11:14] VITALS: BP 129/65; PULSE 78; RESP 17; TEMP 36.7; O2SAT 96
--- NOTE | 2020-02-16 11:17 | PT.INIE ---
PT Notes Visit Reasons: PRE SWINGBED I Inpatient Physical Therapy Evaluation Date: February 16, 2020 Referring Doctor: Yrn Wilson MD PT Orders: PT CONSULT: s/p L TKA I&D and poly exchange Precautions: Fall risk Patient Profile/Admitting Diagnosis: Patient underwent left total knee replacement in mid November 2019. Was brought to the ER secondary to increased knee knee pain. Patient was loading his wood stove and dropped a piece of wood on his lower left landers. States that he attempted walking and felt his knee give out. PMHX: Medical History (Updated 02/10/20 @ 00:52 by Reymundo Moulton DO) Arthritis (Acute) CAD (coronary artery disease) (Chronic) Cellulitis (Acute) RIGHT LOWER LEG Diabetes (Chronic) History of seizures as a child (Acute) Hx of myocardial infarction (Acute) 10/2011 STRESS TEST COMPLETED 11/29/2019 Hyperlipidemia (Acute) Hypertension (Chronic) Renal insufficiency (Chronic) Surgical History (Updated 12/29/19 @ 12:14 by JOURDAN Crump) colonoscopy (09/02/16) H/O heart artery stent (Chronic) X2 2014 History of tonsillectomy and adenoidectomy (Acute) History of total left knee replacement (TKR) (Acute 12/14/19) Dr. Wilson Social History/Home Situation: Pt lives in [place] with his . Notes there is a ramp to the front door and no stairs in the home. 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 Equipment Owned/DME: Cane and crutches and front wheeled walker Subjective: Patient states that he is feeling good this morning. He notes stiffness in both knees. Admits to a single fall prior to admission, but states that prior to that he hasn't had any serious falls. Objective: General Observation: wound drain left Mental Status: Alert and oriented x3 Pain: 3/10 left knee ROM: Right Upper Extremity: Shoulder Flexion WFL. Shoulder abduction WFL. Elbow flexion WFL. Wrist flexion WFL. Opening and closing of hand WFL. Left Upper Extremity: Shoulder Flexion WFL. Shoulder abduction WFL. Elbow flexion WFL. Wrist flexion WFL. Opening and closing of hand WFL. Right Lower Extremity: Hip flexion WFL. Hip abduction WFL. Knee flexion WFL. Ankle dorsiflexion WFL. Ankle plantarflexion WFL. Left Lower Extremity: Hip flexion WFL. Hip abduction WFL. Knee flexion 90 degrees. Knee extension -5 degrees. Ankle dorsiflexion WFL. Ankle plantarflexion WFL. Strength: Right Upper Extremity: Shoulder flexors 5/5. Shoulder abductors 5/5. Elbow flexors 5/5. Elbow extensors 5/5. Dog License Officer Supervisor strong. Left Upper Extremity: Shoulder flexors 5/5. Shoulder abductors 5/5. Elbow flexors 5/5. Elbow extensors 5/5. Dog License Officer Supervisor strong. Right Lower Extremity: Hip flexors 5/5. Hip abductors 5/5. Knee flexors 5/5. Knee extensors 5/5. Ankle dorsiflexors 4-/5. Ankle plantarflexors 5/5. Left Lower Extremity: Hip flexors 4/5. Hip abductors 5/5. Knee flexors 4-/5. Knee extensors 3+/5. Ankle dorsiflexors 4/5. Ankle plantarflexors 5/5. Sensation: Intact as to pain and pressure on bilateral lower extremities Bed Mobility/Transfers: Sit?stand: Min assist to front wheeled walker Stand?sit: Min assist from wheeled walker, with cues for technique and decreased safety awareness Gait: Ambulates 100' feet with front wheeled walker and contact-guard. Patient demonstrates minor losses of balance requiring lateral steps for recovery throughout ambulation. Requires CGA-min A during turning, with minor, posteriorly directed LOB. Balance: Static Sitting: Good Dynamic Sitting: Good Static Standing: Fair Dynamic Standing: poor Special Tests: Mobility Limitations Standardized Measure [facility]-PAC 6 clicks Basic Mobility Inpatient Short Form: Raw Score: 17 CMS Score: 51% impairment Informed Consent/Education: Patient instructed in purpose of PT consult and plan of care. Discussed POC, which patient verbalizes agreement with. Treatment: Today's session consisted of evaluation, followed by instruction in a therapeutic exercise program, as noted on flowsheet. Patient was able to perform SLR without extension lag, and progressed to standing hip Pres on the left lower extremity. We added balance retraining activities, where he requires maintenance of wide base of support and contact guard for effective completion. Deferred on stair management today, due to patient's limited safety with straight plane ambulation. We will plan to progress to stairs in upcoming visits. Assessment: Patient is a 75 year old male referred to physical therapy services with the diagnosis of status post washout left total knee replacement secondary to sepsis. Patient presents with clinical signs and symptoms consistent with postoperative status. He has been receiving PT intervention in an acute care setting for 7 sessions over the past 5 days. He continues to demonstrate mobility deficits, and requires additional PT intervention with swing bed level care to allow for safe transition back home. He currently demonstrates the following impairment level findings: 1. Decreased strength to LLE hip and knee major muscle groups 2. Impaired standing balance 3. Impaired activity tolerance 4. Limitation of joint range of motion in L knee Impairments are contributing to the following functional limitations: 1. Increased dependence with transfers 2. Inability to safely ambulate without assistive device and physical assistance 3. Increase completion time for mobility ADL performance 4. Increased fall risk 5. Inability to negotiate steps alone safely Patient is assessed as a X moderate [id number] complexity based on the following: History: 75-year-old male with multiple medical comorbidities, presenting 6 days status post left TKR I&D and poly-exchange. Complicating factors include underlying balance impairments history of cardiac issues and diabetes. Examination: See above Presentation: Evolving Decision Making: Moderate [id number] Goals: Goals X1 week 1. Sit-Stand independent 2. Stand-Sit independent 3. Bed-Chair independent 4. Chair-Bed independent 5. Independent gait on level surface with use of least restrictive device for at least 300 feet without report of pain nor dyspnea 6. Independent stair negotiation while holding onto bilateral rails for at least 5 steps without report of pain nor dyspnea 7. Independent with home exercise program 8. Good static and dynamic standing balance/tolerance Plan of Care/Treatment Plan: 1-2x/day, 7 days/week x 1 week. Plan of care has been reviewed with the DENTAL LABORATORY ASSISTANT providing the service under Physical Therapy direction. Initiate Physical Therapy intervention for strengthening, bed mobility, transfers, gait, stairs, balance training, use of assistive device. DISCHARGE RECOMMENDATIONS: D/C to home with home health care TREATMENT CODE/TIME: 08822, 43687 (35 minutes) Roberto PT, DPT [facility]
[2020-02-16] MEDS: cefTRIAXone 2 GM/50 ML BAG IVPB (12:13)
[2020-02-16] MEDS: Normal Saline Flush 10 ML SYR IVP ×2 (12:14→20:22)
[2020-02-16] MEDS: Nystatin POWDER 60 GM JAR TP ×2 (13:52→20:22)
--- NOTE | 2020-02-16 15:01 | PHA.ADMREV ---
Pharmacy Clinical Review - Admission Clinical Review amlodipine besylate [From Norvasc] Adverse Reaction (Mild, Unverified 01/27/20 09:50) edema enalapril maleate [From Vasotec] Adverse Reaction (Mild, Unverified 01/27/20 09:50) cough enalaprilat dihydrate [From Vasotec] Adverse Reaction (Mild, Unverified 01/27/20 09:50) cough pravastatin sodium [From Pravachol] Adverse Reaction (Mild, Unverified 01/27/20 09:50) myalgia rosuvastatin [From Crestor] Adverse Reaction (Mild, Unverified 01/27/20 09:50) Other (See Comment) Height 5 ft 8.9 in Weight 120.9 kg SWINGBED FOR INFECTED KNEE REQUIRING PT FOLLOWED BY POSSIBLE HOME INFUSION - Renal Dosing Medications needing adjustments: Reviewed (CrCl~47ml/min) - Anticoagulation DVT Prohphylaxis: Reviewed Medications: Enoxaparin Therapeutic Anticoagulation: N/A - Opiate Usage Evaluate Pain Scale/Pains Meds: Reviewed (Pain 01/09, Oxycodone which he is using, not using Hydromorphone IV prn) Scheduled Bowel Reg ordered if on Opiates?: Yes (Colace,Senna) - Relevant Labs Electrolytes, C-Reactive P, ESR: Reviewed (Creactive protein up 13.44, electrolytes good) - Antimicrobial Stewardship Antibiotic appropriateness: Reviewed (Rocephin 2 gram IV for 6 weeks through aprox 03/24/20-has Midline access, Rifampin) Surgical Abx d/c within 24 hr: N/A Culture review/Resistance: Reviewed (PCT was 2.7 on 02/13/20, Group G Strep from Synovial fluid obtained 02/10/20, Midline placed) - DM Control DM Control: Finger Stick Blood Glucose 130 Finger Stick Blood Glucose 130 Insulin Dosing: Reviewed (Novolog scale, Lantus-good control) - BP Control BP Control: Blood Pressure 129/65 If elevated: Reviewed (HCTZ) - QTc Review If Elevated: Reviewed (QTC 381) - IV to PO Switch IV Medications: N/A - Home Meds Home Med List reviewed: Reviewed Relevent Home Meds Not ordered & why?: Coreg was ordered previously during acute stay but dc'd due to 1st degree AV block, Doxazosin not ordered, Jardiance not ordered-non formulary, using insulin with good control, Losartan not ordered, NTG SL not ordered. Blood pressures were all soft during acute stay - Current meds Current Medication Order Review: Reviewed (Watch BP's, as many home meds not ordered. Transferred soley to Ortho service, anticipate discharge home with infusion therapy soon as Care Managers working on setting it up. Patient needs more physical therapy)
[2020-02-16 15:29] VITALS: BP 142/81; PULSE 83; RESP 20; TEMP 36.7; O2SAT 97
--- NOTE | 2020-02-16 17:53 | CMPROGNOTE_ITS ---
- If Service Date Differs Date of service: 02/16/20 Time of Service: 17:53 Care Management Progress Note S/O: Kurtis was sitting up in his chair when CM met with him. He reported that he is making progress with PT, slowly. CM discussed SWB status with Kurtis and answered any questions he had regarding the transition. Per Dr. Wilson, he will need additional time working with inpatient PT before returning home. He will also continue his IV abx while on SWB. Kurtis is agreeable to staying. CM co ntacted and [facility] to let them know of the delay in services. CM will continue to follow. A:Kurtis is a 75-year-old admitted with sepsis, with infected left total knee. P: Kurtis will transition to SWB level One for continued support from inpatient PT, as well as IV abx. Anticipate Kurtis will return home with new orders for HH RN, PT/OT, once medically cleared. He will receive [facility] infusions [facility] and [facility], coordinated by CM. Kurtis would prefer to be home for this treatment. Kurtis's will drive him home via private vehicle when ready. He will follow up with Ortho and his PCP, as recommended. CM will continue to follow and support discharge planning considerations.
--- NOTE | 2020-02-16 17:54 | CM.SBPSYCH ---
- If Service Date Differs Date of service: 02/16/20 Time of Service: 17:54 SB Psychosocial/Act.Assessment - Hospital Admission Admission Date: 02/09/20 Admission From:: Home Diagnosis:: Septic arthritis of L Knee - Swing Bed Admission Swing Bed Admit Date:: 02/16/20 Swing Bed Level of Care: Level 1/SNF - Social Supports PREVIOUS FUNCTIONAL STATUS/SOCIAL/FAMILY SUPPORTS:: Kurtis resides in [place] with his , Jessica. Their daughter, Amrita and grandchildren also reside in [place]. 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 He is independent at baseline with supportive family and friends. - Prior to Admission Living Arrangements/Environment Prior to Admission:: Kurtis lives at home with his . His daughter lives closeby and is supportive. - Education Highest Grade Completed:: Freshman year, high school. 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 Voacation:: [employer] Supervisor - [place]: No 's Spouse: No - Benefits Financial: Social Security, Other Pension (WENDY), Medicare - Adventism Active Jewish Member:: Yes Jewish Affliation: [facility] Jewish Senior Informatica Developer:: Pastor Romero Will Jewish Members or Senior Informatica Developer Visit:: No Importance of Makayla:: Very Important - Advance Directives for Healthcare Advance Directives for Healthcare: Advance Directives Advance Directive Agent: , Jessica - Community Community Supports/Involvement: Kurtis is very involved in his restorationism. - Interests Hobbies:: Kurtis enjoys fixing tractors, crossword puzzles, wood work, and cooking. - Present Functional Status Physical Abilities:: Limited mobility due to Septic arthritis of recently replaced knee. Cognitive:: Kurtis is alert and oriented x3 Communication:: Kurtis communicates well. Sensory Systems: Intact Behavior:: Appropriate. He is engaged and pleasant in conversation. - Medical History PAST MEDICAL HISTORY/PAST SURGICAL HISTORY:: Arthritis, CAD, Cellulitis, Diabetes, hx of seizures in childhood, [place] 2010, hyperlipidemia, hypertension, renal insufficiency, colonoscopy, hx of tonsillectomy and adenoidectomy General Health:: Krutis has a history of diabetes, HANNAH, and a first degree heart block. Past Psychiatric Treatment:: None known. - Admission Data Reason for Swing Bed Admission:: Continued inpatient PT support as well as IV abx. Discharge Plan:: Kurtis will return home when cleared by PT. He will have HH RN, PT, OT, and will receive daily infusions for his IV abx through [facility]. He will follow up with Ortho, as recommended. His will drive him home via private vehicle when ready. Assessment: Kurtis is a 75 year old male admitted to [facility] level one for continued PT and IV abx. He is pleasant and engaged in conversation. He has a lot of family support, as well as friends and neighbors in the community. He enjoys crossword puzzles and cooking. CM anticipates he will need 3-5 additional days of PT prior to returning home with HH support. CM will continue to follow. Disaster Recovery Consultant: Becky Ty Date Assessment was completed:: 02/16/20
--- NOTE | 2020-02-16 18:27 | CM.SWINGPC ---
- If Service Date Differs Date of service: 02/16/20 Time of Service: 18:27 Swingbed Plan of Care Plan of care: SWING BED PROGRAM ACTIVITIES/DISCHARGE PLAN OF CARE ACTIVITIES PLAN Date: 02/16/20 Identified Need: Individual needs while on short term swing bed. Intervention/Plan: TV in room, activities from cart (crossword puzzles), Reiki, Pet and Music therapy, if available. Initials GUALBERTO DISCHARGE PLAN Date: 02/16/20 Identified Need: Continued PT for strengthening and mobility, IV abx treatment. Intervention/Plan: Kurtis will receive daily PT, and OT, as needed. He will also have daily infusions of abx. He will return home once he has met goals with PT. He will have HH support, as well as home infusion for his continued need for abx therapy with a duration of 6 weeks. Initials GUALBERTO
[2020-02-16] MEDS: Gabapentin 300 MG CAP 900 MG PO (20:18)
[2020-02-16] MEDS: Naproxen 375 MG TAB PO (20:19)
[2020-02-16] MEDS: Multivitamin w/Minerals TAB 1 TAB PO (20:19)
[2020-02-16] MEDS: Magnesium Oxide 400 MG TAB PO (20:19)
[2020-02-16] MEDS: Senna TAB 1 TAB PO (20:19)
[2020-02-16] MEDS: Insulin Glargine 300 UNITS/3 ML PEN 20 UNITS SC (20:19)
[2020-02-16] MEDS: Docusate Sodium 100 MG CAP PO (20:19)
[2020-02-16] MEDS: Insulin Aspart 300 UNITS/3 ML PEN SC (20:23)
[2020-02-16] MEDS: oxyCODONE 5 MG TAB PO (20:23)
[2020-02-16] MEDS: rifAMPin 300 MG CAP PO (20:27)
[2020-02-16 23:40] VITALS: BP 139/60; PULSE 77; RESP 18; TEMP 36.3; O2SAT 98
[2020-02-17] MEDS: rifAMPin 300 MG CAP PO ×2 (06:15→21:10)
[2020-02-17 07:07] LABS: HCT 33.7 % (40.0-50.0); Mean Corp. HGB Concentration 32.6 g/dL (32.0-36.0); Mean Corpuscular Hemoglobin 27.9 pg (27.0-33.0); Mean Corpuscular Volume 85.5 fL (80-95); Mean Platelet Volume 9.1 fL (8.0-11.0); Platelet Count 321 x1000/uL (130-400); RBC 3.94 m/cumm (4.50-6.00); RBC Distribution Width 14.7 % (11.8-14.1); White Blood Cell Count 6.94 k/cumm (4.4-10.8)
[2020-02-17 07:18] LABS: C-Reactive Protein 11.23 mg/dL (0.0-0.3)
[2020-02-17 07:20] VITALS: BP 133/70; PULSE 85; RESP 19; TEMP 36.4; O2SAT 98
[2020-02-17] MEDS: Insulin Aspart 300 UNITS/3 ML PEN SC ×2 (08:03→21:12)
[2020-02-17] MEDS: hydroCHLOROthiazide 25 MG TAB 50 MG PO (08:04)
[2020-02-17] MEDS: Multivitamin w/Minerals TAB 1 TAB PO ×2 (08:05→21:09)
[2020-02-17] MEDS: Docusate Sodium 100 MG CAP PO ×2 (08:05→21:10)
[2020-02-17] MEDS: Aspirin E.C. 81 MG TABEC PO (08:05)
[2020-02-17] MEDS: Magnesium Oxide 400 MG TAB 800 MG PO (08:05)
[2020-02-17] MEDS: Pantoprazole 40 MG TABCR PO (08:05)
[2020-02-17] MEDS: Senna TAB 1 TAB PO ×2 (08:06→21:10)
[2020-02-17] MEDS: Gabapentin 600 MG TAB PO (08:06)
[2020-02-17] MEDS: Naproxen 375 MG TAB PO ×2 (08:06→21:10)
[2020-02-17] MEDS: Cyanocobalamin 500 MCG TAB 1000 MCG PO (08:06)
[2020-02-17] MEDS: Fluticasone NASAL SPRAY 16 GM BTL NS (08:07)
[2020-02-17] MEDS: Nystatin POWDER 60 GM JAR TP ×3 (08:07→21:13)
[2020-02-17] MEDS: Enoxaparin 30 MG/0.3 ML SYR SC (08:08)
[2020-02-17] MEDS: Normal Saline Flush 10 ML SYR IVP ×2 (08:09→21:33)
[2020-02-17] MEDS: oxyCODONE 5 MG TAB PO ×2 (09:50→21:09)
--- NOTE | 2020-02-17 10:17 | NUR.NOTE ---
RN used skin prep around dressing site, to ensure seal
--- NOTE | 2020-02-17 10:25 | W.DIABETESNO ---
Date of service: 02/17/20 Time of Service: 10:25 Diabetes Note NOTE: Kurtis Alanis is here on swing bed with IV antibiotic treatment and with diabetes. Since admission, his fasting blood sugar has increased, today requiring insulin correction at moderate level. He was admitted taking 80 + 20u Lantus daily AND mealtime insulin at 20u per meal, now on just 20units Lantus daily and insulin correction. When documented, he is eating moderate carbohydrate intake of ~40grams per meal and 100% of offered food. In addition, his BMI has decreased from 42 to 39 since admission. Given his A1c of 6.6, only concern is whether hypoglycemia was evident prior to admission. If I am able to visit him, I will explore this prior to discharge home. He is well known to outpatient diabetes self management and knows how to contact us if needed. PLAN: Will continue to follow blood sugars. Time Spent in Nutritional Counseling and Treatment: 0 minutes face to face
--- NOTE | 2020-02-17 11:48 | PT.INTREAT ---
PT Notes Visit Reasons: LEFT SEPTIC TKA Inpatient Physical Therapy Treatment Note [facility] Date: 02/17/2020 SUBJECTIVE: Kurtis states that he is feeling good today. He's anxious to get up and walking. OBJECTIVE: BED MOBILITY/TRANSFERS Sit-stand: CGA Stand-sit: CGA GAIT Assistive Device: FWW Weight bearing: WBAT L Assist: supervision initially, although need for CGA as he fatigues Distance: 125'x1, 150'x1 THEREX: Progressed strengthening to include sit-stand exercises from raised seat and standing shoulder flexion with CGA for dynamic balance retraining. See flowsheet for full therex program. ASSESSMENT: Improved mobility. He continues to require CGA with transfers, primarily due to balance impairments. Alerted nursing to continued need for CGA transfers, which they are in agreement with. Will continue with functional strengthening and balance retraining to improve safety with transfers and household distance ambulation. PLAN: continue with PT POC. TREATMENT CODE/TIME: 14450h4, 23963i8 (50 minutes)
[2020-02-17] MEDS: cefTRIAXone 2 GM/50 ML BAG IVPB (12:24)
--- NOTE | 2020-02-17 13:03 | W.NUTRFU ---
Date of service: 02/17/20 Time of Service: 13:03 Nutritional Follow up NOTE: Kurtis continues on Diabetic Diet with 50-100% meal completion. Has dropped 8 kg since admission, most likely due to fluid loss. BMI 39 indicates class 2 obesity. will continue to follow and make warranted recommendations. No new nutritional recommendations at this time. Time Spent in Nutritional Counseling and Treatment: 0 time spent face to face
[2020-02-17 15:32] VITALS: BP 127/71; PULSE 77; RESP 17; TEMP 36.6; O2SAT 99
[2020-02-17] MEDS: Magnesium Oxide 400 MG TAB PO (21:09)
[2020-02-17] MEDS: Gabapentin 300 MG CAP 900 MG PO (21:10)
[2020-02-17] MEDS: Insulin Glargine 300 UNITS/3 ML PEN 20 UNITS SC (21:11)
[2020-02-18] MEDS: rifAMPin 300 MG CAP PO ×2 (07:06→21:11)
[2020-02-18 08:54] VITALS: BP 126/69; PULSE 78; RESP 18; TEMP 36.3; O2SAT 95
[2020-02-18] MEDS: Enoxaparin 30 MG/0.3 ML SYR SC (09:22)
[2020-02-18] MEDS: hydroCHLOROthiazide 25 MG TAB 50 MG PO (09:23)
[2020-02-18] MEDS: Docusate Sodium 100 MG CAP PO ×2 (09:23→21:11)
[2020-02-18] MEDS: Magnesium Oxide 400 MG TAB 800 MG PO (09:24)
[2020-02-18] MEDS: Naproxen 375 MG TAB PO ×2 (09:24→21:11)
[2020-02-18] MEDS: Senna TAB 1 TAB PO ×2 (09:24→21:11)
[2020-02-18] MEDS: Aspirin E.C. 81 MG TABEC PO (09:24)
[2020-02-18] MEDS: Cyanocobalamin 500 MCG TAB 1000 MCG PO (09:26)
[2020-02-18] MEDS: Pantoprazole 40 MG TABCR PO (09:26)
[2020-02-18] MEDS: Gabapentin 600 MG TAB PO (09:26)
[2020-02-18] MEDS: Normal Saline Flush 10 ML SYR IVP ×3 (09:27→21:12)
[2020-02-18] MEDS: Multivitamin w/Minerals TAB 1 TAB PO ×2 (09:28→21:11)
[2020-02-18] MEDS: Fluticasone NASAL SPRAY 16 GM BTL NS (09:29)
[2020-02-18] MEDS: Nystatin POWDER 60 GM JAR TP ×3 (09:29→21:12)
--- NOTE | 2020-02-18 09:59 | PTTR_ITS ---
PT Notes Visit Reasons: LEFT SEPTIC TKA Inpatient Physical Therapy Treatment Note [facility] Date: 02/18/2020 SUBJECTIVE: Kurtis states that he is feeling good today. OBJECTIVE: BED MOBILITY/TRANSFERS Sit-stand: Supervision Stand-sit: Supervision Bed-chair: Supervision with FWW GAIT Assistive Device: FWW Weight bearing: WBAT L Assist: supervision Distance: 150'x2 THEREX: Progressed therex program with addition of NuStep at L1x5 minutes. He demonstrates improved stability with small MICHELE standing today, and does not dem onstrate any losses of balance during ambulation. See flowsheet for full therex program. ASSESSMENT: Improved mobility and safety with ambulation and transfers. PLAN: continue with PT POC. TREATMENT CODE/TIME: 89177w1 (50 minutes) Parvin Seymour, PT, DPT
[2020-02-18] MEDS: cefTRIAXone 2 GM/50 ML BAG IVPB (12:11)
--- NOTE | 2020-02-18 16:05 | NUR.NOTE ---
Nursing Note: I reviewed the Charting for Luanne Weeks, and found it acceptable and completed
[2020-02-18 16:06] VITALS: BP 152/66; PULSE 87; RESP 18; TEMP 36.5; O2SAT 97
[2020-02-18] MEDS: Magnesium Oxide 400 MG TAB PO (21:11)
[2020-02-18] MEDS: Gabapentin 300 MG CAP 900 MG PO (21:11)
[2020-02-18] MEDS: Insulin Glargine 300 UNITS/3 ML PEN 20 UNITS SC (21:11)
[2020-02-18 23:31] VITALS: BP 139/63; PULSE 74; RESP 19; TEMP 36.6; O2SAT 95
[2020-02-19] MEDS: rifAMPin 300 MG CAP PO ×2 (06:50→22:26)
[2020-02-19 07:15] VITALS: BP 137/67; PULSE 77; RESP 16; TEMP 36.1; O2SAT 97
[2020-02-19] MEDS: Nystatin POWDER 60 GM JAR TP ×3 (08:36→20:00)
[2020-02-19] MEDS: Normal Saline Flush 10 ML SYR IVP ×2 (08:37→20:00)
[2020-02-19] MEDS: Enoxaparin 30 MG/0.3 ML SYR SC (08:37)
[2020-02-19] MEDS: Cyanocobalamin 500 MCG TAB 1000 MCG PO (08:38)
[2020-02-19] MEDS: hydroCHLOROthiazide 25 MG TAB 50 MG PO (08:38)
[2020-02-19] MEDS: Fluticasone NASAL SPRAY 16 GM BTL NS (08:38)
[2020-02-19] MEDS: Multivitamin w/Minerals TAB 1 TAB PO ×2 (08:38→22:26)
[2020-02-19] MEDS: Senna TAB 1 TAB PO ×2 (08:38→22:27)
[2020-02-19] MEDS: Aspirin E.C. 81 MG TABEC PO (08:39)
[2020-02-19] MEDS: Docusate Sodium 100 MG CAP PO ×2 (08:39→22:26)
[2020-02-19] MEDS: Pantoprazole 40 MG TABCR PO (08:39)
[2020-02-19] MEDS: Magnesium Oxide 400 MG TAB 800 MG PO (08:39)
[2020-02-19] MEDS: Naproxen 375 MG TAB PO ×2 (08:39→22:27)
[2020-02-19] MEDS: Gabapentin 600 MG TAB PO (08:39)
--- NOTE | 2020-02-19 08:46 | PT.INTREAT ---
PT Notes Visit Reasons: LEFT SEPTIC TKA Inpatient Physical Therapy Treatment Note [facility] Date: 02/19/2020 SUBJECTIVE: Kurtis states that he is feeling good. He wasn't terribly sore after the increase in his program yesterday. He's looking forward to being able to return home. OBJECTIVE: BED MOBILITY/TRANSFERS Sit-stand: Independent Stand-sit: Independent Bed-chair: Independent with FWW GAIT Assistive Device: FWW Weight bearing: WBAT L Assist: supervision Distance: 150'x2 THEREX: Progressed therex program, with patient able to tolerate standing HS curls, sit-stand from elevated seat, and increased time (6 minutes) on NuStep. He also received seated stretching into knee flexion, where he tolerates 95 degrees, and stretching to bilat Achilles. Also applied patella mobs on the left, which he tolerates well. See flowsheet for full therex program. ASSESSMENT: Continued improvement in mobility and safety with ambulation and transfers. PLAN: continue with PT POC. TREATMENT CODE/TIME: 77391w4 (40 minutes) Parvin Seymour, PT, DPT
[2020-02-19] MEDS: cefTRIAXone 2 GM/50 ML BAG IVPB (12:00)
[2020-02-19 16:04] VITALS: BP 129/80; PULSE 79; RESP 18; TEMP 36.7; O2SAT 96
[2020-02-19] MEDS: Gabapentin 300 MG CAP 900 MG PO (22:25)
[2020-02-19] MEDS: Magnesium Oxide 400 MG TAB PO (22:25)
[2020-02-19] MEDS: Insulin Glargine 300 UNITS/3 ML PEN 20 UNITS SC (22:26)
[2020-02-19] MEDS: Insulin Aspart 300 UNITS/3 ML PEN SC (22:28)
[2020-02-19 23:53] VITALS: BP 124/78; PULSE 80; RESP 18; TEMP 36.6; O2SAT 96
[2020-02-20] MEDS: rifAMPin 300 MG CAP PO (06:06)
[2020-02-20] MEDS: Normal Saline Flush 10 ML SYR IVP (06:07)
[2020-02-20 06:31] LABS: HGB 10.5 g/dL (13.5-17.5); Mean Corp. HGB Concentration 32.8 g/dL (32.0-36.0); Mean Corpuscular Hemoglobin 27.9 pg (27.0-33.0); Mean Corpuscular Volume 84.9 fL (80-95); Mean Platelet Volume 8.9 fL (8.0-11.0); Platelet Count 309 x1000/uL (130-400); RBC 3.77 m/cumm (4.50-6.00); RBC Distribution Width 14.6 % (11.8-14.1); White Blood Cell Count 7.26 k/cumm (4.4-10.8)
[2020-02-20 06:45] LABS: Anion Gap 9.4 mmol/L (3-11); BUN 31 mg/dL (7-18); C-Reactive Protein 5.78 mg/dL (0.0-0.3); CO2 25.6 mmol/L (21.0-32.0); CREATININE 1.47 mg/dL (0.70-1.30); Calcium 9.2 mg/dL (8.5-10.1); Chloride 103 mmol/L (98-107); Estimated GFR 46.45 (mL/min/1.73m2); Glucose 124 mg/dL (74-106); Potassium 4.7 mmol/L (3.5-5.1); Sodium 138 mmol/L (136-145)
[2020-02-20 07:30] VITALS: BP 113/61; PULSE 80; RESP 17; TEMP 36.5; O2SAT 98
[2020-02-20] MEDS: Naproxen 375 MG TAB PO (07:53)
[2020-02-20] MEDS: Cyanocobalamin 500 MCG TAB 1000 MCG PO (07:53)
[2020-02-20] MEDS: Aspirin E.C. 81 MG TABEC PO (07:53)
[2020-02-20] MEDS: hydroCHLOROthiazide 25 MG TAB 50 MG PO (07:53)
[2020-02-20] MEDS: Magnesium Oxide 400 MG TAB 800 MG PO (07:54)
[2020-02-20] MEDS: Multivitamin w/Minerals TAB 1 TAB PO (07:54)
[2020-02-20] MEDS: Pantoprazole 40 MG TABCR PO (07:54)
[2020-02-20] MEDS: Docusate Sodium 100 MG CAP PO (07:54)
[2020-02-20] MEDS: Gabapentin 600 MG TAB PO (07:54)
[2020-02-20] MEDS: Enoxaparin 30 MG/0.3 ML SYR SC (07:55)
[2020-02-20] MEDS: Fluticasone NASAL SPRAY 16 GM BTL NS (07:55)
[2020-02-20] MEDS: Nystatin POWDER 60 GM JAR TP (07:56)
--- NOTE | 2020-02-20 08:06 | W.PM.DS.N ---
Date of service: 02/20/20 Time of Service: 08:06 DS: Diagnosis Discharge Diagnosis (1) Septic arthritis of knee, left: Status: Acute Asessment and Plan: Hilda is status post debridement irrigation of the left knee with polyethylene exchange. He is growing group G strep. He is on proper antibiotics coupled with rifampin. He will need 6 weeks of total antibiotic course intravenously and then no need to be a discussion whether we continue suppressive antibiotics for life. However, I would suggest a minimum 3 to 6 months of antibiotics prior to considering discontinuation. (2) First degree heart block: Status: Acute Asessment and Plan: Persistent first-degree AV block. TTE performed and negative for vegetations or valvular or mickey abnormalities. Mickey blockade agents were discontinued. Stable throughout hospitalization on telemetry. Plan for outpatient follow-up. Continue to withhold carvedilol. (3) Sepsis: Status: Resolved Asessment and Plan: All inflammatory markers have improved and the last blood cultures were negative. (4) Acute kidney injury (nontraumatic): Status: Resolved Asessment and Plan: Improved back to baseline. (5) Diabetes mellitus type 2: Status: Chronic Asessment and Plan: Decreased insulin dosing due to some hypoglycemia. This will need to be followed by regular blood glucose checks and PCP visit. (6) Obstructive sleep apnea syndrome: Status: Chronic Asessment and Plan: Continue home CPAP. Discharge Plan Disposition Patient Disposition: HOME W/HOME HEALTH SERVICE Condition: Improving Discharge Details Reason For Visit: LEFT SEPTIC TKA Admit Date/Time: 02/16/20 10:37 Admit Provider: Yrn Wilson Attending Provider: Yrn Wilson Primary Care Provider: Patrice Camejo Hospital Course Hospital Course: Hilda was admitted to swing bed status at the hospital for continued recovery from his left septic knee and sepsis. He was able tolerate the antibiotics without difficulty. He was able to improve his range of motion and strength such that he was able to transfer independently. Once he was able to transfer independently he was thus deemed safe for discharge home. Please see the previous discharge summary from his acute level stay for all further details. However, in general, he showed continued improvements without fever or chills. His CRP decreased to 5. His white blood cell count was stable. Home Meds and New Rx's Prescriptions: New rifampin [Rifadin] 300 mg Capsule 300 mg PO BID@0630,2000 Qty: 80 RF: 0 ceftriaxone in dextrose,iso-os 2 gram/50 mL Piggyback 2 g IVPB Q24H Qty: 0 RF: 0 Continued magnesium oxide 400 MG tablet See Rx Instructions .ROUTE .COMPLEX RF: 0 gabapentin 300 MG capsule See Rx Instructions .ROUTE .COMPLEX RF: 0 losartan [Cozaar] 100 MG tablet 100 mg PO DAILY RF: 0 nitroglycerin [Nitrostat] 0.4 MG tablet, sublingual 0.4 mg Sublingual Q5 MIN PRN X3 PRNQty: 15 RF: 0 insulin lispro [Humalog KwikPen Insulin] 100 UNIT/ML insulin pen SQ .SLIDING SCALE RF: 0 Lantus Solostar U-100 Insulin 300 UNITS/3 ML insulin pen See Rx Instructions .ROUTE .COMPLEX RF: 0 Jardiance 10 MG tablet 25 mg PO DAILY RF: 0 doxazosin 4 mg Tablet 4 mg PO HS RF: 0 pantoprazole 40 mg tablet,delayed release (DR/EC) 40 mg PO DAILY Qty: 30 RF: 0 fluticasone propionate 50 mcg/actuation [place],Suspension 1 spray INTRANASAL DAILY RF: 0 acetaminophen 500 mg tablet 1,000 mg PO Q8H PRN (Reason: pain) Qty: 90 RF: 3 Changed naproxen 375 mg Tablet 375 mg PO BID PRN (Reason: Pain) Qty: 60 RF: 3 hydrochlorothiazide 50 MG tablet 50 mg PO DAILY Qty: 0 RF: 0 aspirin [Aspir-81] 81 MG tablet,delayed release (DR/EC) 1 tab PO BID Qty: 60 RF: 0 oxycodone 5 mg tablet 5 mg PO Q8H PRN PRNQty: 6 RF: 0 Discontinued carvedilol 12.5 MG tablet 25 mg PO BID RF: 0 Discharge Instructions Instructions: Complications of Infection (GEN) Additional Instructions: Dr. Wilson?s Total Knee Discharge Instructions Activity: The most important activity is to walk. You should try to take short walks a few times a day. It is important that when resting you work on keeping the knee straight. Avoid putting a pillow behind the knee as this will encourage flexion. Work on range of motion exercises as provided by Physical Therapy. - Home Health Physical Therapy has been ordered. - You should wear the VERENICE hose on both legs for 2 weeks, may remove at night. Dressing: Keep the Mepilex dressing in place until 02/23. It may get wet at any time. If it gets wet, just lightly pat dry. Medications: - You should take Tylenol and anti-inflammatory Naproxen as your primary pain control medications - You have been prescribed a stronger pain medication Oxycodone for breakthrough pain, take as needed as prescribed. - You should continue your stomach acid reduction agent Pantoprozole to help reduce stomach acid and reflux. - You will be taking Aspirin 81mg twice a day for DVT prevention for 4 weeks and then return to daily Aspirin. - If you have constipation you should take Colace or Miralax (both [id number]-[id number]). It takes most people 3-4 days to have a bowel movement. ANTIBIOTICS: - You will take Rifampin 300mg twice a day for 6 weeks. This is best taken prior to food. If you desire you may take both tablets once a day, but call and discuss with Dr. Wilson. - You have 6 weeks of IV antibiotics, Ceftriaxone 2g daily. Expected stop date is 03/26/20. You will then start oral antibiotics at that time. - Your PICC line will be cleaned daily and flushed with normal saline for regular management of the line. Heparin flushes may be used by nursing discretion if required to keep the line patient. - You will have weekly blood draws to include CBC and C-reactive protein to monitor your progress. Follow-up: 4 weeks 1. Encounter Date and Reason I certify that HILDA ZIMMERMAN was seen by Yrn Wilson MD on 02/20/20 and that I had a [id number] encounter with this patient that meets the physician face to face encounter requirements. 2. Clinical Findings Supporting Skilled Need and Homebound Status I certify that home health services are medically necessary, include either intermittent halfway and/or physical/speech therapy, and that this patient is homebound in that absences from the home require considerable and taxing effort and are infrequent or of short duration, or are attributable to the need to receive medical care. [X] (a) Attached documentation from encounter provides clinical findings supporting skilled need and homebound status (including what assistance patient requires to leave the home). The encounter with the patient was in whole, or in part, for the following medical condition, which is the primary reason for home health care: LEFT SEPTIC TKA Senior Care: Hilda is requiring daily IV antibiotics, Ceftriaxone 2gram. This may be administered at any time deemed best by nursing and family. Preferable time is between 10a and 2p. Nursing would be needed to assist with complex medication management with multiple changes from admission to discharge, including decreasing insulin dose and discontinuing Carvedilol. Please perform PICC line care as per usual protocol. Physical Therapy: Hilda has weakness and stiffness after surgery to his left knee for an infection. Rehab should focus on strengthening, range of motion, and improving his ambulatory capabilities. Speech Therapy: Homebound: Hilda is unable to leave his home unassisted due to notable weakness and ambulatory difficulties. 3. Certification and Authentication I certify that I composed the above information based on my clinical judgement relating to this patient's medical condition and, if applicable, clinical findings communicated to me by the NPP or inpatient physician who performed the Home Health Referral. All further orders will be obtained through Dr. Wilson Stand Alone Forms: Nursing Discharge Form Referrals: Yrn Wilson MD [ [facility] STAFF PHYSICIAN] - 03/22/20 9:45 am Patrice Camejo MD [Primary Care Provider] - (The office will call you with an appointment ) Activity:: Activity as Tolerated Equipment/Supplies:: No Equipment Needed Diet:: Carb Counting Discharge Orders Discharge Orders: Discharge Order (Routine); Ordered 02/20/20 Ordered By: Yrn Wilson DS: Summary Status at Discharge Functional status at discharge: uses cane/walker Overall status at discharge: patient is progressing back to baseline Mental Status: mental status grossly normal Speech and Movement: speech and movement normal Mood: congruent mood Affect: normal affect Exam Psych Mental Status: mental status grossly normal Speech and Movement: speech and movement normal Mood: congruent mood Affect: normal affect DS: Data Vitals/I&O Vitals and I&O: Vital Signs Temperature 36.5 C 02/20/20 07:30 Temperature Source Tympanic 02/20/20 07:30 Pulse 80 02/20/20 07:30 Pulse Rhythm Regular 02/19/20 20:30 Respiratory Rate 17 02/20/20 07:30 Respiratory Effort Non-Labored 02/19/20 20:30 Respiratory Depth Normal 02/19/20 20:30 Respiratory Pattern Normal 02/19/20 20:30 Blood Pressure 113/61 02/20/20 07:30 Pulse Oximetry 98 02/20/20 07:30 Oxygen Delivery Method Room Air 02/20/20 07:30 Oxygen Flow Rate 0 02/20/20 07:30 Pain Level 1 02/20/20 07:30 Intake & Output 02/19/20 02/19/20 02/20/20 11:59 23:59 11:59 Intake Total 250 / 250 Balance 250 / 250 Intake: IV Oral 240 / 240 Other: Urine Color Yellow Urine Appearance Clear Clear Urine Odor Normal Comment patient voids independently and states that he voids frequently Voiding Methods Toilet Toilet Data Completed and Pending Labs on day of discharge: Labs from last 24 hours 02/20/20 02/20/20 06:00 06:00 WBC 7.26 RBC 3.77 L Hgb 10.5 L Hct 32.0 L MCV 84.9 MCH 27.9 MCHC 32.8 RDW 14.6 H Plt Count 309 MPV 8.9 Sodium 138 Potassium 4.7 Chloride 103 Carbon Dioxide 25.6 Anion Gap 9.4 BUN 31 H Creatinine 1.47 H Estimated GFR/1.73 m2 46.45 Glucose 124 H Calcium 9.2 C-Reactive Protein 5.78 H [facility] Medical History Abnormal LFTs (Chronic) Secondary to fartty infiltrate of the liver. Arthritis (Acute) CAD (coronary artery disease) (Chronic) Cellulitis (Acute) RIGHT LOWER LEG Diabetes (Chronic) History of seizures as a child (Acute) Hx of myocardial infarction (Acute) 10/2011 STRESS TEST COMPLETED 11/29/2019 Hyperlipidemia (Acute) Hypertension (Chronic) Renal insufficiency (Chronic) Surgical History colonoscopy (09/02/16) H/O heart artery stent (Chronic) X2 2014 History of tonsillectomy and adenoidectomy (Acute) History of total left knee replacement (TKR) (Acute 12/14/19) Dr. Wilson Family History Maternal Aunt Colon cancer Maternal Aunt Colon cancer Father , 70s Heart disease Social History Smoking/Tobacco Use Status: Former Tobacco Use Alcohol Intake: never Drug use: Never Substance use type: does not use Do you feel safe at home: Yes Do you feel safe in your relationship?: Yes Additional Social history: Lives with his Joellen. 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
[2020-02-20] MEDS: Senna TAB 1 TAB PO (08:22)
--- NOTE | 2020-02-20 08:31 | PTDS_ITS ---
PT Diagnosis: s/p left total knee replacement Diagnosis: s/p left total knee replacement Weeks Elapsed: week(s) and 0 day(s) Patient Location: Med Surg Referring Provider: Date of Service: PT Notes Visit Reasons: LEFT SEPTIC TKA Date: 02/20/20 Dates of Service: February 16, 2020 - February 20, 2020 Referring Doctor: Yrn Wilson MD PT Orders: PT CONSULT: s/p L TKA I&D and poly exchange Precautions: Fall risk Patient Profile/Admitting Diagnosis: Patient underwent left total knee replacement in mid November 2019. Was brought to the ER secondary to increased knee knee pain. Patient was loading his wood stove and dropped a piece of wood on his lower left landers. States that he attempted walking and felt his knee give out. Social History/Home Situation: Pt lives in [place] with his . Notes there is a ramp to the front door and no stairs in the home. 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 Equipment Owned/DME: Cane and crutches and front wheeled walker Subjective: Patient states that he is feeling ready to go home. He rates his pain as 1/10. Objective: General Observation: Mepilex dressing over anterior knee incision Mental Status: Alert and oriented x3 Pain: 1/10 left knee ROM: Right Upper Extremity: Shoulder Flexion WFL. Shoulder abduction WFL. Elbow flexion WFL. Wrist flexion WFL. Opening and closing of hand WFL. Left Upper Extremity: Shoulder Flexion WFL. Shoulder abduction WFL. Elbow flexion WFL. Wrist flexion WFL. Opening and closing of hand WFL. Right Lower Extremity: Hip flexion WFL. Hip abduction WFL. Knee flexion WFL. Ankle dorsiflexion WFL. Ankle plantarflexion WFL. Left Lower Extremity: Hip flexion WFL. Hip abduction WFL. Knee flexion 95 degrees. Knee extension -5 degrees. Ankle dorsiflexion WFL. Ankle plantarflexion WFL. Strength: Right Upper Extremity: Shoulder flexors 5/5. Shoulder abductors 5/5. Elbow flexors 5/5. Elbow extensors 5/5. 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 Left Upper Extremity: Shoulder flexors 5/5. Shoulder abductors 5/5. Elbow flexors 5/5. Elbow extensors 5/5. 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 Right Lower Extremity: Hip flexors 5/5. Hip abductors 5/5. Knee flexors 5/5. Knee extensors 5/5. Ankle dorsiflexors 4-/5. Ankle plantarflexors 5/5. Left Lower Extremity: Hip flexors 4/5. Hip abductors 5/5. Knee flexors 4-/5. Knee extensors 4/5. Ankle dorsiflexors 4/5. Ankle plantarflexors 5/5. Sensation: Intact as to pain and pressure on bilateral lower extremities Bed Mobility/Transfers: Sit?stand: Independent Stand?sit: Independent Bed-chair: independent with FWW Gait: Ambulates 250' with front wheeled walker and supervision only. No losses of balance, and patient demonstrates good safety awareness. Balance: Static Sitting: Good Dynamic Sitting: Good Static Standing: good Dynamic Standing: fair Treatment: Today's session consisted of instruction in therapeutic exercises as noted on flowsheet. Progressed balance retraining activities as noted. Assessment: Patient is a 75 year old male referred to physical therapy services with the diagnosis of status post washout left total knee replacement secondary to sepsis. Patient presents with clinical signs and symptoms consistent with postoperative status. He has been receiving PT intervention in Swing Bed level of care for 5 sessions over the past 5 days. He has demonstrated significant improvements in safety, mobility and activity tolerance, allowing for safe transition back home with continued PT intervention by home health services. At this point, all rehab goals have been met, and patient is appropriate for discharge from PT services in subacute setting. He currently demonstrates the following impairment level findings: Goals: Goals X1 week 1. Sit-Stand independent (met) 2. Stand-Sit independent (met) 3. Bed-Chair independent (met) 4. Chair-Bed independent (met) 5. Independent gait on level surface with use of least restrictive device for at least 300 feet without report of pain nor dyspnea (progressing toward, with patient demonstrating 250' supervised ambulation) 6. Independent stair negotiation while holding onto bilateral rails for at least 5 steps without report of pain nor dyspnea (goal eliminated, as patient does not require stair management for returng home) 7. Independent with home exercise program (met) 8. Good static and dynamic standing balance/tolerance (not met, with patient demonstrating continued deficits in dynamic balance) Plan of Care/Treatment Plan: Discharge from PT services in subacute setting. DISCHARGE RECOMMENDATIONS: D/C to home with home health care TREATMENT CODE/TIME: 10828Y3 (25 minutes) Parvin Seymour, PT, DPT [facility]
--- NOTE | 2020-02-20 09:26 | W.PM.HP.N ---
Date of service: 02/16/20 Time of Service: 17:27 History of Present Illness Narrative: Please see Acute Inpatient D/C Summary to serve as Swing Bed Admission [facility] Medical History Abnormal LFTs (Chronic) Secondary to fartty infiltrate of the liver. Arthritis (Acute) CAD (coronary artery disease) (Chronic) Cellulitis (Acute) RIGHT LOWER LEG Diabetes (Chronic) History of seizures as a child (Acute) Hx of myocardial infarction (Acute) 10/2011 STRESS TEST COMPLETED 11/29/2019 Hyperlipidemia (Acute) Hypertension (Chronic) Renal insufficiency (Chronic) Surgical History colonoscopy (09/02/16) H/O heart artery stent (Chronic) X2 2014 History of tonsillectomy and adenoidectomy (Acute) History of total left knee replacement (TKR) (Acute 12/14/19) Dr. Wilson Family History Maternal Aunt Colon cancer Maternal Aunt Colon cancer Father , 70s Heart disease Social History Smoking/Tobacco Use Status: Former Tobacco Use Alcohol Intake: never Drug use: Never Substance use type: does not use Do you feel safe at home: Yes Do you feel safe in your relationship?: Yes Additional Social history: Lives with his Joellen. 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 Meds Home Medications and Allergies Home Medications Medication Instructions Recorded Confirmed Type losartan [Cozaar] 100 mg PO DAILY 11/01/13 02/16/20 History nitroglycerin [Nitrostat] 0.4 mg SUBLINGUAL Q5 MIN PRN X3 11/01/13 02/16/20 Rx PRN #15 tab gabapentin See Rx Instructions .ROUTE 12/18/14 02/16/20 History .COMPLEX tab-cap magnesium oxide See Rx Instructions .ROUTE .COMPLEX 12/18/14 02/16/20 History Lantus Solostar U-100 Insulin See Rx Instructions .ROUTE .COMPLEX 09/01/16 02/16/20 History insulin lispro [Humalog KwikPen unit SQ .SLIDING SCALE 09/01/16 01/27/20 History Insulin] Jardiance 25 mg PO DAILY 05/22/18 02/16/20 History doxazosin 4 mg PO HS 12/07/19 02/16/20 History pantoprazole 40 mg PO DAILY #30 tab 12/16/19 02/16/20 Rx fluticasone propionate 1 spray INTRANASAL DAILY 02/10/20 02/16/20 History acetaminophen 1,000 mg PO Q8H PRN #90 tab 02/20/20 Rx aspirin [Aspir-81] 1 tab PO BID #60 tab 02/20/20 Rx ceftriaxone in dextrose,iso-os 2 g IVPB Q24H #0 ea 02/20/20 Rx hydrochlorothiazide 50 mg PO DAILY #0 tab-cap 02/20/20 02/16/20 Rx naproxen 375 mg PO BID PRN #60 tab 02/20/20 Rx oxycodone 5 mg PO Q8H PRN PRN #6 tab 02/20/20 Rx rifampin [Rifadin] 300 mg PO BID@06,1999 #80 cap 02/20/20 Rx Allergies Allergy/AdvReac Type Severity Reaction Status Date / Time amlodipine besylate AdvReac Mild edema Unverified 01/27/20 09:50 [From Norvasc] enalapril maleate AdvReac Mild cough Unverified 01/27/20 09:50 [From Vasotec] enalaprilat dihydrate AdvReac Mild cough Unverified 01/27/20 09:50 [From Vasotec] pravastatin sodium AdvReac Mild myalgia Unverified 01/27/20 09:50 [From Pravachol] rosuvastatin [From Crestor] AdvReac Mild Other (See Unverified 01/27/20 09:50 Comment) Results Labs Result diagrams: 02/20/20 06:00 02/20/20 06:00 Labs: Laboratory Results - last 24 hr 02/20/20 02/20/20 06:00 06:00 WBC 7.26 RBC 3.77 L Hgb 10.5 L Hct 32.0 L MCV 84.9 MCH 27.9 MCHC 32.8 RDW 14.6 H Plt Count 309 MPV 8.9 Sodium 138 Potassium 4.7 Chloride 103 Carbon Dioxide 25.6 Anion Gap 9.4 BUN 31 H Creatinine 1.47 H Estimated GFR/1.73 m2 46.45 Glucose 124 H Calcium 9.2 C-Reactive Protein 5.78 H Last Vital Signs Temp 36.5 C 02/20/20 07:30 Pulse 80 02/20/20 07:30 Resp 17 02/20/20 07:30 BP 113/61 02/20/20 07:30 Pulse Ox 98 02/20/20 07:30
[2020-02-20] MEDS: cefTRIAXone 2 GM/50 ML BAG IVPB (11:43)
--- NOTE | 2020-02-20 15:15 | PDOC.CMDIS ---
- If Service Date Differs Date of service: 02/20/20 Time of Service: 15:15 LACE Index Scoring Tool - Questions: Length of Stay (in days): 7 - 13 Acuity (Admit via E.D.?): Yes Comorbidities: Diabetes w/o Complication E.D. Visits: 1 - Answers: Total Score: 10 Risk of Readmission: High Risk Care Management Discharge Reason for Hospitalization: Septic L Knee Discharge Plan: Kurtis will return home with new orders for RN, PT, OT. He will have daily home infusion of abx, provided by [facility] and [facility] RN, coordinated by [facility]. His will drive him home via private vehicle. He will follow up with Ortho, as recommended. He is agreeable to returning home. Patient/Family Education Needs: Review discharge instructions regarding activity levels and medications, discussion of self care needs including ask me three and goals of care. Services Needed at Discharge: Home Health Care Services ([facility] RN, PT, OT), Infusion Therapy ([facility])
== END 2020-02-20 12:35 | disposition home health service (06) | DRG 945 ==
PROVIDERS: Admitting Provider Student in an Organized Health Care Education/Training Program; PCP Internal Medicine; Visit Provider Student in an Organized Health Care Education/Training Program
DX: R53.1 Weakness (principal); A40.8 Other streptococcal sepsis; M00.262 Other streptococcal arthritis, left knee; T84.54XD Infection and inflammatory reaction due to internal left knee prosthesis, subsequent encounter; B95.4 Other streptococcus as the cause of diseases classified elsewhere; Z47.1 Aftercare following joint replacement surgery; Z79.2 Long term (current) use of antibiotics; I44.0 Atrioventricular block, first degree; G47.33 Obstructive sleep apnea (adult) (pediatric); Z96.652 Presence of left artificial knee joint; E11.9 Type 2 diabetes mellitus without complications; I25.10 Atherosclerotic heart disease of native coronary artery without angina pectoris; E78.5 Hyperlipidemia, unspecified; I10 Essential (primary) hypertension; Z79.4 Long term (current) use of insulin; Z71.3 Dietary counseling and surveillance
CPT/HCPCS: 36415; 80048; 85027; 97110; 97162; 97530; NC; 86140; J1650

== ENCOUNTER 2020-02-27 14:08 | Outpatient (REF) | payer OTHER, SELFPAY ==
[2020-02-27 14:51] LABS: Abs Immature Grans 0.01 k/cumm (0.0-0.09); Absolute Basophil Count 0.02 k/cumm (0.0-0.2); Absolute Eosinophil Count 0.19 k/cumm (0.0-0.7); Absolute Lymphocyte Count 0.96 k/cumm (1.2-3.4); Absolute Monocyte Count 0.51 k/cumm (0.11-0.7); Absolute Neutrophil Count 4.15 k/cumm (1.2-6.7); Basophils % 0.3; Eosinophils % 3.3; HCT 32.8 % (40.0-50.0); HGB 10.6 g/dL (13.5-17.5); Immature Grans % 0.2 %; Lymphocytes % 16.4; Mean Corp. HGB Concentration 32.3 g/dL (32.0-36.0); Mean Corpuscular Hemoglobin 27.7 pg (27.0-33.0); Mean Corpuscular Volume 85.9 fL (80-95); Mean Platelet Volume 9.5 fL (8.0-11.0); Monocytes % 8.7; Neutrophils % 71.1; Platelet Count 240 x1000/uL (130-400); RBC 3.82 m/cumm (4.50-6.00); White Blood Cell Count 5.84 k/cumm (4.4-10.8)
[2020-02-27 15:04] LABS: ALT 33 U/L (16-63); AST 30 U/L (15-37); Albumin 3.5 g/dL (3.4-5.0); Alkaline Phosphatase 99 U/L (46-116); Anion Gap 8.5 mmol/L (3-11); BUN 22 mg/dL (7-18); Bilirubin, Total 0.4 mg/dL (0.2-1.0); CO2 28.5 mmol/L (21.0-32.0); CREATININE 1.08 mg/dL (0.70-1.30); Calcium 9.1 mg/dL (8.5-10.1); Chloride 103 mmol/L (98-107); Glucose 65 mg/dL (74-106); Potassium 4.5 mmol/L (3.5-5.1); Sodium 140 mmol/L (136-145); Total Protein 7.2 g/dL (6.4-8.2)
== END 2020-02-27 14:28 ==
LOC: LBN 14:08
PROVIDERS: PCP Internal Medicine; Visit Provider Student in an Organized Health Care Education/Training Program
DX: T84.54XD Infection and inflammatory reaction due to internal left knee prosthesis, subsequent encounter (principal); Z79.2 Long term (current) use of antibiotics; Z96.652 Presence of left artificial knee joint
CPT/HCPCS: 80053; 85025

== ENCOUNTER 2020-03-05 12:01 | Outpatient (REF) | payer OTHER, SELFPAY ==
[2020-03-05 12:21] LABS: Abs Immature Grans 0.01 k/cumm (0.0-0.09); Absolute Basophil Count 0.03 k/cumm (0.0-0.2); Absolute Eosinophil Count 0.31 k/cumm (0.0-0.7); Absolute Monocyte Count 0.67 k/cumm (0.11-0.7); Absolute Neutrophil Count 3.73 k/cumm (1.2-6.7); Basophils % 0.5; Eosinophils % 5.5; HCT 33.7 % (40.0-50.0); HGB 10.9 g/dL (13.5-17.5); Immature Grans % 0.2 %; Lymphocytes % 15.9; Mean Corp. HGB Concentration 32.3 g/dL (32.0-36.0); Mean Corpuscular Hemoglobin 27.9 pg (27.0-33.0); Mean Corpuscular Volume 86.4 fL (80-95); Monocytes % 11.9; Platelet Count 184 x1000/uL (130-400); RBC Distribution Width 15.4 % (11.8-14.1); White Blood Cell Count 5.65 k/cumm (4.4-10.8)
[2020-03-05 12:26] LABS: ALT 31 U/L (16-63); AST 32 U/L (15-37); Albumin 3.7 g/dL (3.4-5.0); Alkaline Phosphatase 102 U/L (46-116); Anion Gap 8.3 mmol/L (3-11); BUN 26 mg/dL (7-18); Bilirubin, Total 0.3 mg/dL (0.2-1.0); C-Reactive Protein 0.69 mg/dL (0.0-0.3); CO2 27.7 mmol/L (21.0-32.0); CREATININE 1.17 mg/dL (0.70-1.30); Calcium 8.8 mg/dL (8.5-10.1); Chloride 104 mmol/L (98-107); Glucose 67 mg/dL (74-106); Potassium 4.5 mmol/L (3.5-5.1); Sodium 140 mmol/L (136-145)
== END 2020-03-05 12:21 ==
LOC: LBN 12:01
PROVIDERS: PCP Internal Medicine; Visit Provider Student in an Organized Health Care Education/Training Program
DX: T84.54XD Infection and inflammatory reaction due to internal left knee prosthesis, subsequent encounter (principal); Z79.2 Long term (current) use of antibiotics; Z96.652 Presence of left artificial knee joint
CPT/HCPCS: 80053; 85025; 86140

== ENCOUNTER 2020-03-12 16:47 | Outpatient (REF) | payer OTHER, SELFPAY ==
[2020-03-12 18:54] LABS: HCT 36.6 % (40.0-50.0); HGB 11.7 g/dL (13.5-17.5); Mean Corpuscular Hemoglobin 27.7 pg (27.0-33.0); Mean Corpuscular Volume 86.7 fL (80-95); Mean Platelet Volume 9.9 fL (8.0-11.0); Platelet Count 189 x1000/uL (130-400); RBC 4.22 m/cumm (4.50-6.00); RBC Distribution Width 15.9 % (11.8-14.1); White Blood Cell Count 5.01 k/cumm (4.4-10.8)
[2020-03-12 19:01] LABS: ALT 33 U/L (16-63); AST 33 U/L (15-37); Albumin 3.9 g/dL (3.4-5.0); Alkaline Phosphatase 105 U/L (46-116); Anion Gap 8.3 mmol/L (3-11); BUN 36 mg/dL (7-18); Bilirubin, Total 0.4 mg/dL (0.2-1.0); CO2 28.7 mmol/L (21.0-32.0); CREATININE 1.27 mg/dL (0.70-1.30); Calcium 9.2 mg/dL (8.5-10.1); Chloride 103 mmol/L (98-107); Estimated GFR 54.99 (mL/min/1.73m2); Glucose 91 mg/dL (74-106); Potassium 4.8 mmol/L (3.5-5.1); Sodium 140 mmol/L (136-145); Total Protein 7.4 g/dL (6.4-8.2)
[2020-03-12 21:54] LABS: C-Reactive Protein 0.85 mg/dL (0.0-0.3)
== END 2020-03-12 17:07 ==
LOC: LBN 16:47
PROVIDERS: PCP Internal Medicine; Visit Provider Student in an Organized Health Care Education/Training Program
DX: T84.54XD Infection and inflammatory reaction due to internal left knee prosthesis, subsequent encounter (principal); Z96.652 Presence of left artificial knee joint; Z79.2 Long term (current) use of antibiotics
CPT/HCPCS: 80053; 85027; 86140

== ENCOUNTER 2020-03-13 12:58 | Outpatient (CLI) | payer OTHER, SELFPAY ==
--- NOTE | 2020-03-13 13:08 | DI.RAD_ITS ---
EXAM: XR CHEST 1V IN DI DEPT CLINICAL HISTORY: PLACEMENT VERIFICATION TECHNIQUE: 2D digital imaging was performed. COMPARISON: No exams were available for comparison FINDINGS: MEDIASTINUM: Normal. HEART: Normal. PULMONARY VASCULATURE: Normal. LUNGS: Clear. PLEURAL SPACE: No pleural effusion or pneumothorax. BONE:There are degenerative changes present. OTHER FINDINGS:There is a left PICC line in place. The tip lies in good position in the superior jennifer a cava just beyond the junction of the brachiocephalic veins. IMPRESSION: Left PICC line in good position. The tip lies in the superior vena cava. DATA REPOSITORY: RADIATION DOSE DELIVERED:
== END 2020-03-13 13:18 ==
PROVIDERS: PCP Internal Medicine; Visit Provider Student in an Organized Health Care Education/Training Program
DX: Z45.2 Encounter for adjustment and management of vascular access device (principal); T84.54XD Infection and inflammatory reaction due to internal left knee prosthesis, subsequent encounter; Z79.2 Long term (current) use of antibiotics; Z96.652 Presence of left artificial knee joint
CPT/HCPCS: 71045

== ENCOUNTER 2020-03-19 10:59 | Outpatient (REF) | payer OTHER, SELFPAY ==
[2020-03-19 12:04] LABS: HCT 32.4 % (40.0-50.0); HGB 10.4 g/dL (13.5-17.5); Mean Corp. HGB Concentration 32.1 g/dL (32.0-36.0); Mean Corpuscular Hemoglobin 27.3 pg (27.0-33.0); Mean Platelet Volume 9.7 fL (8.0-11.0); Platelet Count 177 x1000/uL (130-400); RBC 3.81 m/cumm (4.50-6.00); RBC Distribution Width 15.7 % (11.8-14.1)
[2020-03-19 12:16] LABS: ALT 34 U/L (16-63); AST 30 U/L (15-37); Albumin 3.5 g/dL (3.4-5.0); Alkaline Phosphatase 120 U/L (46-116); Anion Gap 7.8 mmol/L (3-11); BUN 36 mg/dL (7-18); Bilirubin, Total 0.5 mg/dL (0.2-1.0); C-Reactive Protein 4.53 mg/dL (0.0-0.3); CO2 27.2 mmol/L (21.0-32.0); CREATININE 1.57 mg/dL (0.70-1.30); Calcium 8.9 mg/dL (8.5-10.1); Chloride 101 mmol/L (98-107); Estimated GFR 43.05 (mL/min/1.73m2); Glucose 90 mg/dL (74-106); Potassium 5.5 mmol/L (3.5-5.1); Sodium 136 mmol/L (136-145); Total Protein 6.8 g/dL (6.4-8.2)
== END 2020-03-19 11:19 ==
LOC: LBN 10:59
PROVIDERS: PCP Internal Medicine; Visit Provider Student in an Organized Health Care Education/Training Program
DX: T84.54XD Infection and inflammatory reaction due to internal left knee prosthesis, subsequent encounter (principal); Z96.652 Presence of left artificial knee joint; Z79.2 Long term (current) use of antibiotics
CPT/HCPCS: 80053; 85027; 86140

== ENCOUNTER → 2020-03-22 09:32 | Outpatient (BNVA) | payer OTHER, SELFPAY | PROVIDERS: PCP Internal Medicine; Referring Provider Internal Medicine; Visit Provider Student in an Organized Health Care Education/Training Program | DX: Z96.652 Presence of left artificial knee joint (principal); Z47.1 Aftercare following joint replacement surgery; T84.54XD Infection and inflammatory reaction due to internal left knee prosthesis, subsequent encounter; M00.9 Pyogenic arthritis, unspecified; M17.11 Unilateral primary osteoarthritis, right knee; E11.9 Type 2 diabetes mellitus without complications; I10 Essential (primary) hypertension; Z79.4 Long term (current) use of insulin ==

== ENCOUNTER 2020-05-01 08:24 | Outpatient (CLI) | payer OTHER, SELFPAY ==
[2020-05-01 12:08] LABS: HCT 40.7 % (40.0-50.0); HGB 13.1 g/dL (13.5-17.5); Mean Corp. HGB Concentration 32.2 g/dL (32.0-36.0); Mean Corpuscular Hemoglobin 26.9 pg (27.0-33.0); Mean Corpuscular Volume 83.6 fL (80-95); Mean Platelet Volume 10.1 fL (8.0-11.0); Platelet Count 144 x1000/uL (130-400); RBC 4.87 m/cumm (4.50-6.00); RBC Distribution Width 15.7 % (11.8-14.1); White Blood Cell Count 4.81 k/cumm (4.4-10.8)
[2020-05-01 12:42] LABS: ALT 48 U/L (16-63); AST 43 U/L (15-37); Albumin 4.1 g/dL (3.4-5.0); Alkaline Phosphatase 106 U/L (46-116); Anion Gap 6.2 mmol/L (3-11); BUN 41 mg/dL (7-18); Bilirubin, Total 0.5 mg/dL (0.2-1.0); C-Reactive Protein 0.23 mg/dL (0.0-0.3); CO2 27.8 mmol/L (21.0-32.0); Calcium 9.1 mg/dL (8.5-10.1); Chloride 102 mmol/L (98-107); Estimated GFR 45.38 (mL/min/1.73m2); Glucose 135 mg/dL (74-106); Potassium 4.9 mmol/L (3.5-5.1); Sodium 136 mmol/L (136-145)
[2020-05-01 14:05] LABS: ESR 14 mm/hr (1-20)
== END 2020-05-01 08:44 ==
PROVIDERS: PCP Internal Medicine; Visit Provider Physician Assistant
DX: M00.9 Pyogenic arthritis, unspecified (principal)
CPT/HCPCS: 36415; 80053; 85027; 85652; 86140

== ENCOUNTER → 2020-05-04 09:51 | Outpatient (BNVA) | payer OTHER, SELFPAY | PROVIDERS: PCP Internal Medicine; Visit Provider Student in an Organized Health Care Education/Training Program | DX: Z96.652 Presence of left artificial knee joint (principal); Z47.1 Aftercare following joint replacement surgery; M00.9 Pyogenic arthritis, unspecified ==

== ENCOUNTER 2020-05-28 13:32 | Emergency (ER) | payer OTHER, SELFPAY ==
[2020-05-28 13:36] VITALS: BP 153/64; PULSE 64; TEMP 36.6; O2SAT 98
--- NOTE | 2020-05-28 13:41 | W.ED.GENAD ---
Discharge Plan Disposition Patient Disposition: HOME Condition: Stable Discharge Details Chief Complaint: Orthopedic Clinical Impression: Finger laceration Primary Care Provider: Patrice Camejo ED Provider: Estrella Freeman Home Meds and New Rx's Prescriptions: Continued penicillin V potassium 500 mg tablet 500 mg PO TID Qty: 90 RF: 3 aspirin [Aspir-81] 81 mg tablet,delayed release (DR/EC) 81 mg PO DAILY RF: 0 magnesium oxide 400 MG tablet See Rx Instructions .ROUTE .COMPLEX RF: 0 gabapentin 300 MG capsule See Rx Instructions .ROUTE .COMPLEX RF: 0 losartan [Cozaar] 100 MG tablet 100 mg PO DAILY RF: 0 nitroglycerin [Nitrostat] 0.4 MG tablet, sublingual 0.4 mg Sublingual Q5 MIN PRN X3 PRNQty: 15 RF: 0 insulin lispro [Humalog KwikPen Insulin] 100 UNIT/ML insulin pen SQ .SLIDING SCALE RF: 0 Lantus Solostar U-100 Insulin 300 UNITS/3 ML insulin pen See Rx Instructions .ROUTE .COMPLEX RF: 0 Jardiance 10 MG tablet 25 mg PO DAILY RF: 0 doxazosin 4 mg Tablet 4 mg PO HS RF: 0 fluticasone propionate 50 mcg/actuation [place],Suspension 1 spray INTRANASAL DAILY RF: 0 rifampin [Rifadin] 300 mg Capsule 300 mg PO BID@0630,2000 Qty: 80 RF: 0 ceftriaxone in dextrose,iso-os 2 gram/50 mL Piggyback 2 g IVPB Q24H Qty: 0 RF: 0 naproxen 375 mg Tablet 375 mg PO BID PRN (Reason: Pain) Qty: 60 RF: 3 hydrochlorothiazide 50 MG tablet 50 mg PO DAILY Qty: 0 RF: 0 acetaminophen 500 mg tablet 1,000 mg PO Q8H PRN (Reason: pain) Qty: 90 RF: 3 Discharge Instructions Instructions: Finger Laceration (ED) Additional Instructions: Keep wound clean and dry. Cover wound with bandage if risk of contamination. Otherwise you can keep the wound open to air if resting at home to allow edges to dry and heal. Be sure to keep your sugar within good control to decrease risk of infection. Follow-up with your primary care doctor in 1 week. Return to the emergency department with any worsening or new concerning symptoms. Discharge Data Discharge Physician: Estrella Freeman Medical Decision Making 75-year-old male presents with left third finger injury after caught on steps of a tractor 4 days ago. He has a 3 cm superficial C-shaped flap laceration noted on the lateral aspect of the distal left third finger. No active bleeding. No signs of cellulitis. Full range of motion no evidence of bony injury or deformity. Tetanus up-to-date December 2019. Do not see an indication for labs or imaging. Wound appears clean. Flap is white and likely will fall off in time. A Steri-Strip was used to lightly tack flap down over open wound underneath to decrease chance of infection. He was advised to keep his glucose in good control considering his history of diabetes. Do not see indication for antibiotics at this time. Patient advised on proper wound care. Advised to follow up with the primary care doctor for re-evaluation. Usual and customary return precautions given prior to discharge. Medical Records Medical records reviewed: Yes I reviewed the patient's medical records. HPI General Mode of arrival: ambulatory. Date/Time Provider Initiated Documentation: 05/28/20 13:33. Limitations to Documentation: no limitations. Information obtained by: patient. HPI Narrative: Patient is a 75-year-old male who presents with left finger flap laceration after caught on the steps of a tractor 4 days ago. Patient states he was concerned about possible infection and whether sutures should be placed. Patient states he has been able to keep the wound clean and dry. Related Data Home Medications Medication Instructions Recorded Confirmed losartan [Cozaar] 100 mg PO DAILY 11/01/13 02/16/20 nitroglycerin [Nitrostat] 0.4 mg SUBLINGUAL Q5 MIN PRN X3 11/01/13 02/16/20 PRN #15 tab gabapentin See Rx Instructions .ROUTE 12/18/14 02/16/20 .COMPLEX tab-cap magnesium oxide See Rx Instructions .ROUTE .COMPLEX 12/18/14 02/16/20 Lantus Solostar U-100 Insulin See Rx Instructions .ROUTE .COMPLEX 09/01/16 02/16/20 insulin lispro [Humalog KwikPen unit SQ .SLIDING SCALE 09/01/16 01/27/20 Insulin] Jardiance 25 mg PO DAILY 05/22/18 02/16/20 doxazosin 4 mg PO HS 12/07/19 02/16/20 fluticasone propionate 1 spray INTRANASAL DAILY 02/10/20 02/16/20 acetaminophen 1,000 mg PO Q8H PRN #90 tab 02/20/20 ceftriaxone in dextrose,iso-os 2 g IVPB Q24H #0 ea 02/20/20 hydrochlorothiazide 50 mg PO DAILY #0 tab-cap 02/20/20 02/16/20 naproxen 375 mg PO BID PRN #60 tab 02/20/20 rifampin [Rifadin] 300 mg PO BID@ #80 cap 02/20/20 penicillin V potassium 500 mg 500 mg PO TID #90 tab 03/22/20 05/28/20 tablet aspirin 81 mg tablet,delayed 81 mg PO DAILY tab 05/04/20 release Previous Rx's Medication Instructions Recorded nitroglycerin [Nitrostat] 0.4 mg SUBLINGUAL Q5 MIN PRN X3 11/01/13 PRN #15 tab acetaminophen 1,000 mg PO Q8H PRN #90 tab 02/20/20 ceftriaxone in dextrose,iso-os 2 g IVPB Q24H #0 ea 02/20/20 hydrochlorothiazide 50 mg PO DAILY #0 tab-cap 02/20/20 naproxen 375 mg PO BID PRN #60 tab 02/20/20 rifampin [Rifadin] 300 mg PO BID@ #80 cap 02/20/20 penicillin V potassium 500 mg 500 mg PO TID #90 tab 03/22/20 tablet Allergies Allergy/AdvReac Type Severity Reaction Status Date / Time amlodipine besylate AdvReac Mild edema Unverified 05/28/20 13:40 [From Norvasc] enalapril maleate AdvReac Mild cough Unverified 05/28/20 13:40 [From Vasotec] enalaprilat dihydrate AdvReac Mild cough Unverified 05/28/20 13:40 [From Vasotec] pravastatin sodium AdvReac Mild myalgia Unverified 05/28/20 13:40 [From Pravachol] rosuvastatin [From Crestor] AdvReac Mild Other (See Unverified 05/28/20 13:40 Comment) General Stated Complaint: Orthopedic TONG: 5 Review of Systems All systems reviewed & are unremarkable except as noted in HPI and below PFSH Social History Smoking/Tobacco Use Status: Former Tobacco Use Alcohol Intake: never Drug use: Never Substance use type: does not use Do you feel safe at home: Yes Do you feel safe in your relationship?: Yes Additional Social history: Lives with his Jessica and Amy. 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 Exam Const General: cooperative, healthy appearing and no acute distress HENNC Head: normal to inspection Mouth: oral mucosae normal Eyes General: appearance normal, both eyes and all related structures Neck Neck: normal visual inspection Resp Effort & Inspection: normal respiratory effort and able to speak in complete sentences Cardio Rate: regular rate Skin General skin exam: no rashes or lesions noted Neuro General: patient alert, patient awake and patient oriented x3 Motor: muscle tone normal throughout and strength 5/5 throughout Sensory Exam: no sensory deficits noted Extrem General: full ROM Hand/finger images: 1. 2cm superficial C shaped flap laceration noted on lateral aspect of distal L 3rd finger lateral to nail. Flap appears white in color. Psych Appearance: grossly normal Affect: normal affect Course Vital Signs Vital signs: Vital Signs Temperature 97.9 F 05/28/20 13:36 Pulse 64 05/28/20 13:36 Blood Pressure 153/64 H 05/28/20 13:36 Pulse Oximetry 98 05/28/20 13:36 Temperature 97.9 F 05/28/20 13:36 Temperature Source Temporal Artery Scan 05/28/20 13:36 Pulse 64 05/28/20 13:36 Respiratory Effort Non-Labored 05/28/20 13:38 Blood Pressure 153/64 H 05/28/20 13:36 Blood Pressure Position Sitting 05/28/20 13:36 Pulse Oximetry 98 05/28/20 13:36 Oxygen Delivery Method Room Air 05/28/20 13:36 Oxygen Flow Rate 0 05/28/20 13:36 Pain Level 1 05/28/20 13:36
== END 2020-05-28 14:02 | disposition home or self-care (01) ==
PROVIDERS: Emergency Provider Physician Assistant; PCP Internal Medicine
DX: S61.213A Laceration without foreign body of left middle finger without damage to nail, initial encounter (principal); W23.1XXA Caught, crushed, jammed, or pinched between stationary objects, initial encounter; E11.9 Type 2 diabetes mellitus without complications; Z79.4 Long term (current) use of insulin
CPT/HCPCS: 99281

== ENCOUNTER → 2020-07-27 09:04 | Outpatient (BNVA) | payer OTHER, SELFPAY | PROVIDERS: PCP Internal Medicine; Visit Provider Student in an Organized Health Care Education/Training Program | DX: Z96.652 Presence of left artificial knee joint (principal); Z47.1 Aftercare following joint replacement surgery; M17.11 Unilateral primary osteoarthritis, right knee; M00.9 Pyogenic arthritis, unspecified; E11.9 Type 2 diabetes mellitus without complications; I10 Essential (primary) hypertension | CPT/HCPCS: 99212; 99213 ==

== ENCOUNTER 2020-08-28 14:03 | Emergency (ER) | payer OTHER, SELFPAY ==
[2020-08-28 14:12] VITALS: BP 143/85; PULSE 67; RESP 16; TEMP 37.1; O2SAT 94
--- NOTE | 2020-08-28 14:20 | ED.GENADUL_ITS ---
Discharge Plan Disposition Patient Disposition: HOME Condition: Stable Discharge Details Clinical Impression: Partial thickness burn of left hand Primary Care Provider: Patrice Camejo ED Provider: Shaheed Gayle Home Meds and New Rx's Prescriptions: New bacitracin 500 unit/gram ointment 1 applic topical DAILY 10 Days Qty: 14 RF: 0 Continued aspirin [Aspir-81] 81 mg tablet,delayed release (DR/EC) 81 mg PO DAILY RF: 0 penicillin V potassium 500 mg tablet 500 mg PO TID Qty: 90 RF: 3 magnesium oxide 400 MG tablet See Rx Instructions .ROUTE .COMPLEX RF: 0 gabapentin 300 MG capsule See Rx Instructions .ROUTE .COMPLEX RF: 0 losartan [Cozaar] 100 MG tablet 100 mg PO DAILY RF: 0 nitroglycerin [Nitrostat] 0.4 MG tablet, sublingual 0.4 mg Sublingual Q5 MIN PRN X3 PRNQty: 15 RF: 0 insulin lispro [Humalog KwikPen Insulin] 100 UNIT/ML insulin pen SQ .SLIDING SCALE RF: 0 Lantus Solostar U-100 Insulin 300 UNITS/3 ML insulin pen See Rx Instructions .ROUTE .COMPLEX RF: 0 Jardiance 10 MG tablet 25 mg PO DAILY RF: 0 doxazosin 4 mg Tablet 4 mg PO HS RF: 0 fluticasone propionate 50 mcg/actuation [place],Suspension 1 spray INTRANASAL DAILY RF: 0 rifampin [Rifadin] 300 mg Capsule 300 mg PO BID@0630,2000 Qty: 80 RF: 0 naproxen 375 mg Tablet 375 mg PO BID PRN (Reason: Pain) Qty: 60 RF: 3 hydrochlorothiazide 50 MG tablet 50 mg PO DAILY Qty: 0 RF: 0 acetaminophen 500 mg tablet 1,000 mg PO Q8H PRN (Reason: pain) Qty: 90 RF: 3 Discharge Instructions Instructions: Second Degree Burn (ED) Additional Instructions: You may unroof the blister of the ring finger once the skin ruptures. Gently clean with soap and water and apply bacitracin to area once or twice daily, then redressed. Anticipate you will need to do this for approximately 7 to 10 days time. Return if you develop a fever or any other acute concerns. Continue your regularly prescribed medications. Medical Decision Making 75-year-old male presents for evaluation of carmichael to the left hand that he suffered 5 days ago. He has partial-thickness burn on the palm and distal portion of the ring finger of the left hand. The palmar aspect had begun to do bride itself. I fully debrided the area which showed evidence of good granulation tissue and healthy appearing skin below. Will treat with bacitracin. Patient given instructions for home care. He is stable and appropriate for discharge to home. HPI General Mode of arrival: ambulatory . Date/Time Provider Initiated Documentation: 08/28/20 14:03 . Limitations to Documentation: no limitations . Information obtained by: patient . History of Present Illness 75 year old M presents to the emergency department with the chief complaint of Left hand burn last , described as mild, Quality is described as dull and constant, and is localized to the left and upper extremity. Patient reports no radiation. Patient started experiencing this hour(s) and it has been constant. No relieving factors improve symptom(s), No exacerbating factors reported . Patient notes denies fever/chills. Patient did receive the following treatments prior to arrival, none Related Data Home Medications Medication Instructions Recorded Confirmed losartan [Cozaar] 100 mg PO DAILY 11/01/13 08/28/20 nitroglycerin [Nitrostat] 0.4 mg SUBLINGUAL Q5 MIN PRN X3 11/01/13 08/28/20 PRN #15 tab gabapentin See Rx Instructions .ROUTE 12/18/14 08/28/20 .COMPLEX tab-cap magnesium oxide See Rx Instructions .ROUTE .COMPLEX 12/18/14 08/28/20 Lantus Solostar U-100 Insulin See Rx Instructions .ROUTE .COMPLEX 09/01/16 08/28/20 insulin lispro [Humalog KwikPen unit SQ .SLIDING SCALE 09/01/16 01/27/20 Insulin] Jardiance 25 mg PO DAILY 05/22/18 08/28/20 doxazosin 4 mg PO HS 12/07/19 08/28/20 fluticasone propionate 1 spray INTRANASAL DAILY 02/10/20 08/28/20 acetaminophen 1,000 mg PO Q8H PRN #90 tab 02/20/20 08/28/20 hydrochlorothiazide 50 mg PO DAILY #0 tab-cap 02/20/20 08/28/20 naproxen 375 mg PO BID PRN #60 tab 02/20/20 08/28/20 rifampin [Rifadin] 300 mg PO BID@0630,1999 #80 cap 02/20/20 08/28/20 aspirin 81 mg tablet,delayed 81 mg PO DAILY tab 05/04/20 08/28/20 release penicillin V potassium 500 mg 500 mg PO TID #90 tab 07/27/20 08/28/20 tablet bacitracin 1 applic TOPICAL DAILY 10 Days #14 08/28/20 g Previous Rx's Medication Instructions Recorded nitroglycerin [Nitrostat] 0.4 mg SUBLINGUAL Q5 MIN PRN X3 11/01/13 PRN #15 tab acetaminophen 1,000 mg PO Q8H PRN #90 tab 02/20/20 hydrochlorothiazide 50 mg PO DAILY #0 tab-cap 02/20/20 naproxen 375 mg PO BID PRN #60 tab 02/20/20 rifampin [Rifadin] 300 mg PO BID@ #80 cap 02/20/20 penicillin V potassium 500 mg 500 mg PO TID #90 tab 07/27/20 tablet bacitracin 1 applic TOPICAL DAILY 10 Days #14 08/28/20 g Allergies Allergy/AdvReac Type Severity Reaction Status Date / Time amlodipine besylate AdvReac Mild edema Unverified 08/28/20 14:21 [From Norvasc] enalapril maleate AdvReac Mild cough Unverified 08/28/20 14:21 [From Vasotec] enalaprilat dihydrate AdvReac Mild cough Unverified 08/28/20 14:21 [From Vasotec] pravastatin sodium AdvReac Mild myalgia Unverified 08/28/20 14:21 [From Pravachol] rosuvastatin [From Crestor] AdvReac Mild Other (See Unverified 08/28/20 14:21 Comment) General Stated Complaint: Burn TONG: 4 Review of Systems Narrative: Currently taking penicillin. He has otherwise been well. Tetanus up-to-date. 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 Wilson s/p debridement and poly exchange 02/10/20 Family History Maternal Aunt Colon cancer Maternal Aunt Colon cancer Father , 70s Heart disease Social History Smoking/Tobacco Use Status: Former Tobacco Use Alcohol Intake: never Drug use: Never Substance use type: does not use Do you feel safe at home: Yes Do you feel safe in your relationship?: Yes Additional Social history: Lives with his Joellen. 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 Exam Narrative Exam Narrative: GEN: awake, alert, oriented 3. Pleasant, well groomed, interactive. HEAD: Normocephalic, atraumatic CHEST/RESP: No respiratory distress EXT: Full ROM, the left hand palm has an area approximately 2 x 3 cm of partial- thickness burn with healing blister as well as partial-thickness burn to the left ring finger that remains intact. No circumferential burn. Capillary fill less than 2 seconds. Neuro: Grossly normal neurologic exam, conversant, interactive. Psych: Speech fluent, thoughts congruent, affect normal Course Vital Signs Vital signs: Vital Signs Temperature 37.1 C 08/28/20 14:12 Pulse 67 08/28/20 14:12 Respiratory Rate 16 08/28/20 14:12 Blood Pressure 143/85 H 08/28/20 14:12 Pulse Oximetry 94 08/28/20 14:12 Temperature 37.1 C 08/28/20 14:12 Temperature Source Skin 08/28/20 14:12 Pulse 67 08/28/20 14:12 Respiratory Rate 16 08/28/20 14:12 Respiratory Effort Non-Labored 08/28/20 14:12 Blood Pressure 143/85 H 08/28/20 14:12 Blood Pressure Position Sitting 08/28/20 14:12 Pulse Oximetry 94 08/28/20 14:12 Oxygen Delivery Method Room Air 08/28/20 14:12 Oxygen Flow Rate 0 08/28/20 14:12 Pain Level 4 08/28/20 14:12
== END 2020-08-28 14:34 | disposition home or self-care (01) ==
PROVIDERS: Emergency Provider Emergency Medicine; PCP Internal Medicine
DX: T23.222A Burn of second degree of single left finger (nail) except thumb, initial encounter (principal); T23.252A Burn of second degree of left palm, initial encounter; X19.XXXA Contact with other heat and hot substances, initial encounter; E11.9 Type 2 diabetes mellitus without complications; I10 Essential (primary) hypertension
CPT/HCPCS: 16020

== ENCOUNTER 2020-12-17 10:21 | Outpatient (CLI) | payer OTHER, SELFPAY ==
--- NOTE | 2020-12-17 10:00 | DI.RAD_ITS ---
EXAM: XR KNEE LT 2V AP,LAT CLINICAL HISTORY: L TKA. TECHNIQUE: 2D digital imaging was performed. COMPARISON: CR XR STANDING ALIGNMENT from 12/29/2019 CR XR KNEE LT 1V from 12/29/2019 FINDINGS: BONES: There are stable post operative changes present. No fracture or dislocation. JOINTS: The joint spaces are well maintained. Joint effusion is present. SOFT TISSUE: Soft tissue swelling around the knee is noted. Vascular calcifications are seen in the soft tissues. IMPRESSION: 1. Stable left TKR. 2. Small joint effusion and soft tissue swelling about the knee. DATA REPOSITORY: RADIATION DOSE DELIVERED:
== END 2020-12-17 10:41 ==
PROVIDERS: PCP Internal Medicine; Referring Provider Internal Medicine; Visit Provider Student in an Organized Health Care Education/Training Program
DX: Z96.652 Presence of left artificial knee joint (principal); M25.461 Effusion, right knee; M17.11 Unilateral primary osteoarthritis, right knee; M00.9 Pyogenic arthritis, unspecified
CPT/HCPCS: 99213; 73560

== ENCOUNTER 2021-01-07 14:34 | Outpatient (REF) | payer OTHER, SELFPAY ==
[2021-01-07 14:15] LABS: HCT 44.9 % (40.0-50.0); HGB 14.7 g/dL (13.5-17.5); MCH 27.5 pg (27.0-33.0); MCHC 32.7 % (32.0-36.0); MCV 83.9 fL (80-95); MPV 10.5 fL (8.0-11.0); Platelet Count 123 10^3/uL (130-400); RBC 5.35 10^6/uL (4.36-5.78); RDW 14.8 % (11.8-14.1); RDW-SD 44.8 fL; WBC 5.78 10^3/uL (4.4-10.8)
[2021-01-07 14:34] LABS: Anion Gap 8.9 mmol/L (3-11); BUN 33 mg/dL (7-18); CO2 26.1 mmol/L (21.0-32.0); CREATININE 1.3 mg/dL (0.70-1.30); Calcium 9.7 mg/dL (8.5-10.1); Chloride 105 mmol/L (98-107); Estimated GFR 53.39 (mL/min/1.73m2); Glucose 133 mg/dL (74-106); Potassium 4.5 mmol/L (3.5-5.1); Sodium 140 mmol/L (136-145)
== END 2021-01-07 14:35 | disposition home or self-care (01) ==
LOC: NCHCN 14:34
PROVIDERS: PCP Internal Medicine; Visit Provider Internal Medicine
DX: Z01.818 Encounter for other preprocedural examination (principal); M17.9 Osteoarthritis of knee, unspecified; E11.9 Type 2 diabetes mellitus without complications; I87.2 Venous insufficiency (chronic) (peripheral); I10 Essential (primary) hypertension; I25.10 Atherosclerotic heart disease of native coronary artery without angina pectoris; G47.30 Sleep apnea, unspecified; M17.11 Unilateral primary osteoarthritis, right knee
CPT/HCPCS: 80048; 85027

== ENCOUNTER 2021-01-11 02:25 | Outpatient (CLI) | payer OTHER, SELFPAY ==
[2021-01-11 10:07] LABS: HGB 14.7 g/dL (13.5-17.5); MCH 27.7 pg (27.0-33.0); MCV 86.8 fL (80-95); MPV 9.6 fL (8.0-11.0); Platelet Count 130 10^3/uL (130-400); RDW 14.7 % (11.8-14.1); RDW-SD 47.2 fL; WBC 6.45 10^3/uL (4.4-10.8)
[2021-01-11 10:21] LABS: Hemoglobin A1C 6.8 % (<5.7)
[2021-01-11 10:23] LABS: Anion Gap 8.3 mmol/L (3-11); BUN 30 mg/dL (7-18); CO2 28.7 mmol/L (21.0-32.0); CREATININE 1.4 mg/dL (0.70-1.30); Chloride 104 mmol/L (98-107); Estimated GFR 49.01 (mL/min/1.73m2); Glucose 101 mg/dL (74-106); Sodium 141 mmol/L (136-145)
== END 2021-01-11 02:26 | disposition home or self-care (01) ==
LOC: LBO 02:25
PROVIDERS: PCP Internal Medicine; Visit Provider Student in an Organized Health Care Education/Training Program
DX: M25.561 Pain in right knee (principal); M17.11 Unilateral primary osteoarthritis, right knee; Z01.818 Encounter for other preprocedural examination; Z01.812 Encounter for preprocedural laboratory examination; E11.9 Type 2 diabetes mellitus without complications; Z20.822 Contact with and (suspected) exposure to COVID-19
CPT/HCPCS: 36415; 80048; 85027; U0003; 83036

== ENCOUNTER 2021-01-11 02:26 | Outpatient (CLI) | payer OTHER, SELFPAY ==
[2021-01-12 17:08] LABS: COVID-19 RT-PCR UVMMC Result Negative (Negative)
== END 2021-01-11 02:27 | disposition home or self-care (01) ==
LOC: LBO 02:26
PROVIDERS: PCP Internal Medicine; Visit Provider Student in an Organized Health Care Education/Training Program
DX: Z20.822 Contact with and (suspected) exposure to COVID-19 (principal); Z01.818 Encounter for other preprocedural examination
CPT/HCPCS: U0003

== ENCOUNTER 2021-01-16 06:45 | Inpatient (IN) | payer OTHER, SELFPAY ==
[2021-01-16] VITALS (14 sets, daily range): BP systolic 115–173; BP diastolic 55–93; PULSE 49–65; RESP 10–18; TEMP 35.5–37.1; O2SAT 93–97
[2021-01-16] MEDS: Celecoxib 200 MG CAP 400 MG PO (11:51)
[2021-01-16] MEDS: Acetaminophen 500 MG TAB 1000 MG PO ×2 (11:51→19:34)
[2021-01-16] MEDS: Gabapentin 300 MG CAP PO (11:51)
[2021-01-16] MEDS: Lactated Ringers 1,000 ML 80 ML IV ×2 (12:08→17:35)
[2021-01-16] MEDS: ceFAZolin 3,000 MG in Normal Saline 100 ML 200 MG IVPB (14:27)
[2021-01-16] MEDS: Normal Saline 20 ML VIAL (15:08)
[2021-01-16] MEDS: Ketorolac 30 MG/ML VIAL (15:08)
[2021-01-16] MEDS: Bupivacaine 0.25% Pres-Free 30 ML VIAL (15:08)
[2021-01-16] MEDS: Insulin Aspart 300 UNITS/3 ML PEN 30 UNITS SC (18:32)
[2021-01-16] MEDS: Magnesium Oxide 400 MG TAB PO (18:45)
[2021-01-16] MEDS: ceFAZolin 1 GM/50 ML BAG IVPB (19:32)
[2021-01-16] MEDS: Naproxen 375 MG TAB PO (19:34)
[2021-01-16] MEDS: Aspirin E.C. 81 MG TABEC PO (19:35)
[2021-01-16] MEDS: Carvedilol 25 MG TAB PO (19:35)
[2021-01-16] MEDS: Gabapentin 300 MG CAP 900 MG PO (19:35)
--- NOTE | 2021-01-16 20:49 | ROE_ITS ---
Date of service: 01/16/21 Time of Service: 16:06 Operative Note Operative Note DATE OF PROCEDURE: 01/16/21 PRE-OP DIAGNOSIS: Right Knee Osteoarthritis POST-OP DIAGNOSIS: same PROCEDURE: Right Total Knee Replacement SURGEON: Yrn Wilson VENEER JOINTER: Gela Choi ANESTHESIA TYPE: General LMA/ETT Refer to Anesthesia Record ESTIMATED BLOOD LOSS: 350 PATHOLOGY: none sent TOURNIQUET TIME: 50 COMPLICATIONS: None Patient was transported to: PACU Patient's condition: stable Implants: 1. Depuy Attune Posterior Stabilized Femoral Component, Size 7 2. Depuy Attune Fixed Platform Tibial Component, Size 7 3. Depuy Attune 7x5mm Fixed, Stabilized Poly 4. Depuy Attune Patellar Component, Size 38mm Indications: I have seen Kurtis in clinic for symptoms of RIGHT knee arthritis, confirmed with radiographic findings. He has exhausted nonoperative methods and was having significant limitations in daily function and desired better function and less pain. I discussed the technical details of a knee replacement. I explained the risks of the procedure to include, but not limited to, bleeding, infection, pain, stiffness, fracture, damage to nerves and vessels, damage to muscles and tendons, loosening, need for repeat procedure, blood clot and cardiopulmonary demise. Despite these risks, Kurtis elected to proceed. Findings: There was significant signs of arthritis throughout the knee. Procedure Description: Kurtis was greeted in the preoperative holding area where the correct side was identified and marked. The consent was reviewed with the patient and signed. The history and physical was updated. All questions were answered. Preoperative mediacations were administered: Acetaminophen 1000mg, Celebrex 400mg, and Gabapentin 300mg. An adductor canal block was then administered by the anesthesia team in the PACU. He was taken back to the operating room. A spinal anesthestic was then attempted but was unsuccessful, so he was converted to a general anesthetic. The patient was placed into the supine position on the operating room table. A nonsterile tourniquet was placed high onto the leg. Posts were placed for positioning during the procedure. All bony prominences were well padded. Prophylactic antibiotics in the form of Cefazolin were administered. 1g of Tranxemic Acid was given intravenously within 30 minutes of incision. The right leg was then prepped with Chloraprep and draped in a standard fashion with impervious stockinette. A second prep with Chloraprep was performed prior to application of Iodine impregnated skin protection. A timeout to confirm correct identity, side and site, procedure, allergies, anesthesia, and medical concerns was performed. With the knee in some flexion, a midline incision was made overlying the knee. Full thickness skin flaps were raised once the extensor mechanism was encountered. These were raised medially and laterally. Any bleeding was controlled with electrocautery. Once the extensor mechanism was fully exposed, a medial parapatellar arthrotomy was performed in a flexed position. All bleeding from the arthrotomy and the geniculate arteries was coagulated. A medial subperiosteal peel was performed with electrocautery to the midcoronal plane. Due to the significant varus deformity the entire medial tibial plateau was exposed. The fat pad was removed while keeping the patellar tendon protected. The anterior distal femur synovium was removed for later visualization. The ACL and PCL were resected and the anterior horn of the lateral meniscus was transected. The knee was then flexed with the patella everted. Large osteophytes from the tibia were removed. Large osteophytes from the femur were removed. Using a step drill, and based on preoperative templating, the femoral canal was entered. This was done with a step drill without any difficulty. The intramedullary distal femoral cut guide was inserted, set to a 6 degree valgus cut and 10mm cut thickness. The distal femoral cut guide was then held in position and pinned. With the soft tissues protected, the distal cut was performed. This was passed over a few times to ensure a planar cut. I then turned attention to the tibia. The extramedullary guide was placed onto the leg. The distal aspect was slid medial to adjust for position of center of ankle and stay in line with shaft of the tibia. Approximately 3 degrees of posterior slope was kept in the proximal cutting guide. The center of the guide was aligned with the PCL. The stylus was used to assess cut thickness. The medial side, most involved side, was set for a 3mm cut, which corresponded to 9mm laterally. This was then held in position and pinned into place with 2 additional pins and a cross pin for stability. The medial and lateral collateral ligaments were protected and the cut was performed. With this completed, it was assessed and noted to be of appropriate dimensions. The guide was removed. A spacer block was inserted and the knee was brought into extension. The 5mm spacer block provided full extension, without hyperextension and with stability of both the medial and lateral collateral ligaments was assessed. The pins from the femur and the tibia were then removed. The tourniquet was then inflated to 275mmHg. This was done sooner than I usually do to labile blood pressures with systolics as high as the 200s at times and a consistent ooze from the knee. All the soft tissue work had been completed and there is no significant arterial bleeding appreciated. The distal femur was then sized. The anterior stylus was placed onto the lateral ridge of the anterior femur. This indicated a size 7 femur. The external rotation of the guide was adjusted to 3 degrees to match the epicondylar axis, perpendicular to [place]?s line. The 4-in-1 cutting guide was the placed. The posterior medial femur cut was evaluated and appeared of good thickness. The spacer block was inserted underneath the cutting guide and stability was confirmed in 90 degrees of flexion. An rocio wing was used to confirm appropriate position of the anterior cut to avoid notching. This cutting guide was ensured to be flush on the cut surface and then pinned into place with headed pins. While protecting the soft tissues, quad tendon, and collateral ligaments, the anterior and posterior cuts were performed with a saw. The central two pins were removed and the posterior and anterior chamfers were cut next. The notch-cutting guide was placed. This was pinned to lateralize the femoral component as much as possible while keeping it flush on the cut surface. This was then pinned into position. A reciprocating saw was used to make the notch cut. A rasp smoothed the cut surfaces. A trial posterior stabilized femoral component was then inserted, impacted down to the cut surfaces, and the lug holes were drilled. A provisional trial tibial component was placed and the knee was brought through range of motion. There was noted to be excellent extension and flexion. There was no significant instability. The patella was tracking without thumbs. The tibial cut surface was fully exposed. The medial and lateral menisci were removed. The tibia was then sized as a 7. The tibia had been previously marked during trialing to correspond to the center of the tibial component to help with rotation. The trial was aligned to this ruddy, approximately rotated to the medial 1/3rd of the tibial tubercle. The trial was pinned into place. The tibia was prepared with a reamer and a keel punch. The knee was then brought into extension and the patella was measured as 24mm. Using the patellar clamp and cut guide, this was resected to a flat surface with at least 13mm of thickness remaining. The size 38 patella fit the best. This was oriented and then clamped into position. The lugs were drilled. The trial components were removed. The final components, except for the polyethylene were opened on the back table. The periosteal and capsular tissues, especially posteriorly, around the knee were then systematically injected with a periarticular cocktail consisting of 50cc 0.25% Marcaine, 30mg Ketorolac, 20cc of Exparal and 50cc of injectable saline. The knee was thoroughly irrigated with a pulse lavage and dried. On the back table, with the implants opened, the cement was mixed. 2 batches of antibiotic laden cement were prepared with vacuum assistance. After the cement was ready a small amount was placed on to the back side of the tibial component at the keel. A small amount was placed onto the posterior flange of the femur. Cement was manual pressurized and impregnated into the cut surface of the tibia. The tibial component was then inserted into the cut surface and impacted into position. Excess cement was removed and the component was reimpacted. Again, excess cement was removed and our attention was then turned to the femur. The femoral cut surface was once again dried and cement was manually impacted into the cut surface. The femoral component was lined with the lug holes and impacted. Excess cement was removed. It was ensured to be down against the cut surface. The trial polyethylene was then inserted and the leg was brought out into full extension for the duration of the cement curing process, approximately 15min. Cement was lastly manually impacted into the cut surface of the patella and the patellar button was clamped into position and held. During this process attention was turned to the gutters of the knee and for all interfaces for any excess cement. While the cement was hardening, the knee was irrigated with Irrisept chlorhexadine solution. This was allowed to sit in the knee for 3 minutes. After the cement had finally cured, approximately 18min, the clamp was removed from the patella and the knee was taken through range of motion. A size 5mm polyethylene component provided the best range of motion and stability with less than 2mm gapping with medial and lateral stress and full extension without significant hyperextension. The patella was tracking with a no-thumbs technique. The trial poly was removed and once again the knee was checked for any loose, excess, or errant cement. The poly component was then inserted into position after cleaning and drying the tibial tray. The capsule was then reapproximated with a No. 1 Vicryl at multiple locations. The capsule was finally closed with a No. 2 Stratafix, barbed suture. The tourniquet was then released and the arthrotomy appeared watertight without si gnificant bleeding. The second dosing of 1g TXA was started. Deep tissues were then reapproximated with 0 Vicryl and 2-0 Monocryl. The skin was closed with a running 3-0 Monocryl in a subcuticular fashion. This was reinforced with skin glue. A Mepilex silver dressing was applied along with a [id number] ED wrap. A CryoCuff was applied. Kurtis was transferred to the hospital bed without difficulty an suffering no apparent complication. Kurtis has a good prognosis. Physical therapy will start today and without restrictions, weight-bearing as tolerated. Aspirin 81mg BID will be used for DVT prophylaxis.
[2021-01-16] MEDS: Insulin Glargine 300 UNITS/3 ML PEN 70 UNITS SC (22:09)
[2021-01-16] MEDS: Doxazosin 2 MG TAB 4 MG PO (22:32)
[2021-01-17] MEDS: oxyCODONE 5 MG TAB PO ×2 (00:19→12:46)
[2021-01-17] MEDS: ceFAZolin 1 GM/50 ML BAG IVPB ×2 (03:49→11:40)
[2021-01-17 04:57] VITALS: BP 120/59; PULSE 69; RESP 16; TEMP 36.6; O2SAT 95
[2021-01-17] MEDS: Lactated Ringers 1,000 ML 80 ML IV (06:11)
[2021-01-17] MEDS: Naproxen 375 MG TAB PO (07:39)
[2021-01-17] MEDS: Aspirin E.C. 81 MG TABEC PO (07:39)
[2021-01-17] MEDS: Pantoprazole 40 MG TABCR PO (07:40)
[2021-01-17] MEDS: Acetaminophen 500 MG TAB 1000 MG PO ×2 (07:40→13:40)
[2021-01-17] MEDS: Magnesium Oxide 400 MG TAB 800 MG PO (07:40)
[2021-01-17] MEDS: hydroCHLOROthiazide 25 MG TAB 50 MG PO (07:40)
[2021-01-17] MEDS: Carvedilol 25 MG TAB PO (07:41)
[2021-01-17] MEDS: Insulin Glargine 300 UNITS/3 ML PEN 30 UNITS SC (07:47)
[2021-01-17] MEDS: Insulin Aspart 300 UNITS/3 ML PEN SC ×2 (07:48→11:41)
[2021-01-17] MEDS: Insulin Aspart 300 UNITS/3 ML PEN 30 UNITS SC ×2 (07:48→11:40)
[2021-01-17 09:08] VITALS: BP 148/72; PULSE 70; RESP 28; TEMP 36.4; O2SAT 96
[2021-01-17] MEDS: Gabapentin 300 MG CAP PO (09:55)
--- NOTE | 2021-01-17 10:37 | W.PM.DS.N ---
Documented by User: Gela Jimbo 01/16/21 07:46 DS: Diagnosis Discharge Diagnosis (1) Primary osteoarthritis of right knee: Status: Acute Discharge Plan Disposition Patient Disposition: HOME Condition: Good Discharge Details Reason For Visit: R KNEE DJD Admit Date/Time: 01/16/21 06:45 Admit Provider: Yrn Wilson Attending Provider: Yrn Wilson Primary Care Provider: Patrice Camejo Hospital Course Hospital Course: Patient was admitted to the medical/surgical floor following the procedure. The surgery was tolerated well without any notable medical, surgical, or anesthetic complications. Mobilization began post-operatively. They were voiding spontaneously. Vitals were stable. Physical therapy worked with the patient and was cleared for discharge home. No acute medical issues. Pain was controlled on oral regimen. Home Meds and New Rx's Prescriptions: New acetaminophen 500 mg tablet 500 mg PO Q6H PRN (Reason: pain) Qty: 60 RF: 2 aspirin 81 mg tablet,delayed release (DR/EC) 81 mg PO BID 30 Days Qty: 60 RF: 0 docusate sodium [Colace] 100 mg capsule 100 mg PO BID Qty: 30 RF: 0 oxycodone 5 mg tablet 5 mg PO Q4H PRN (Reason: severe post-operative pain) Qty: 18 RF: 0 pantoprazole 40 mg tablet,delayed release (DR/EC) 40 mg PO DAILY Qty: 30 RF: 0 naproxen 375 mg tablet 375 mg PO BID Qty: 60 RF: 2 Continued magnesium oxide 400 MG tablet See Rx Instructions .ROUTE .COMPLEX RF: 0 gabapentin 300 MG capsule See Rx Instructions .ROUTE .COMPLEX RF: 0 losartan [Cozaar] 100 MG tablet 100 mg PO DAILY RF: 0 nitroglycerin [Nitrostat] 0.4 MG tablet, sublingual 0.4 mg Sublingual Q5 MIN PRN X3 PRNQty: 15 RF: 0 insulin lispro [Humalog KwikPen Insulin] 100 UNIT/ML insulin pen 30 unit SQ .SLIDING SCALE RF: 0 Lantus Solostar U-100 Insulin 300 UNITS/3 ML insulin pen See Rx Instructions .ROUTE .COMPLEX RF: 0 Jardiance 10 MG tablet 25 mg PO DAILY RF: 0 doxazosin 4 mg Tablet 4 mg PO HS RF: 0 fluticasone propionate 50 mcg/actuation [place],Suspension 1 spray INTRANASAL DAILY RF: 0 hydrochlorothiazide 50 MG tablet 50 mg PO DAILY Qty: 0 RF: 0 Discontinued aspirin [Aspir-81] 81 mg tablet,delayed release (DR/EC) 81 mg PO DAILY RF: 0 naproxen 375 mg Tablet 375 mg PO BID PRN (Reason: Pain) Qty: 60 RF: 3 acetaminophen 500 mg tablet 1,000 mg PO Q8H PRN (Reason: pain) Qty: 90 RF: 3 No Action carvedilol 25 mg tablet 25 mg PO BID RF: 0 Discharge Instructions Additional Instructions: Total Knee Discharge Instructions Activity: The most important activity is to walk. You should try to take short walks a few times a day. It is important that when resting you work on keeping the knee straight. Avoid putting a pillow behind the knee as this will encourage flexion. Work on range of motion exercises as provided by Physical Therapy. - Start outpatient physical therapy within 2 weeks. - You should wear the VERENICE hose on both legs for 2 weeks. You may remove these at night. You may also use any compression sock in place of the VERENICE hose. Dressing: You may remove the Eduin wrap on your leg 2 days after your surgery and put on the VERENICE stocking given to you from the hospital. Keep the surgical dressing (underneath the EDUIN wrap) in place for at least one week. After the first week it may be removed and replaced with light gauze and tape or nothing. The wound and dressing may get wet after 3 days but avoid soaking the dressing or otherwise it will need to be changed. Many people prefer covering the dressing with cling wrap (saran wrap) to minimize it from getting soaked. If it gets wet, just pat dry. If it starts to peel off then it will need to be changed. Medications: - You should take Tylenol and anti-inflammatory Naproxen as your primary pain control medications. - You have been prescribed a stronger pain medication Oxycodone for breakthrough pain, take as needed as prescribed. - You have also been prescribed a stomach acid reduction agent Pantoprozole to help reduce stomach acid and reflux. - You will continue to take your normal dose of Gabapentin at night for restlessness and nerve pain. - You will be taking Aspirin 81mg twice a day for DVT prevention unless instructed otherwise. - If you have constipation you should take Colace (which was prescribed) or Miralax (which may be purchased [id number]). It takes most people 3-4 days to have a bowel movement. Follow-up: 2 weeks If you have any acute concerns or questions, please do not hesitate to contact the office at [phone]. You may contact Dr. Wilson with any questions after hours through the hospital at [phone] or on his cell phone at [phone]. Stand Alone Forms: Nursing Discharge Form Referrals: Yrn Wilson MD [ [facility] STAFF PHYSICIAN] - Activity:: Activity as Tolerated Equipment/Supplies:: Walker Diet:: As Tolerated Discharge Orders Discharge Orders: Discharge Order (Routine); Ordered 01/17/21 Ordered By: Yrn Wilson DS: Data Vitals/I&O Vitals and I&O: Intake & Output 01/15/21 01/15/21 01/16/21 11:59 23:59 11:59 Weight 128.367 kg [facility] Medical History Abnormal LFTs Secondary to fartty infiltrate of the liver. 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 Wilson s/p debridement and poly exchange 02/10/20 Family History Maternal Aunt Colon cancer Maternal Aunt Colon cancer Father , 70s Heart disease Social History Smoking/Tobacco Use Status: Never Smoking risk assessment performed?: Yes Alcohol Intake: never Drug use: Never Substance use type: does not use Do you feel safe at home: Yes Do you feel safe in your relationship?: Yes Documented by User: Yrn Wilson MD 01/17/21 10:37 Date of service: 01/17/21 Time of Service: 10:36 Discharge Plan Disposition Patient Disposition: HOME Condition: Good Discharge Details Reason For Visit: R KNEE DJD Admit Date/Time: 01/16/21 06:45 Admit Provider: Yrn Wilson Attending Provider: Yrn Wilson Primary Care Provider: Patrice Camejo Hospital Course Hospital Course: Patient was admitted to the medical/surgical floor following the procedure. The surgery was tolerated well without any notable medical, surgical, or anesthetic complications. Mobilization began post-operatively. They were voiding spontaneously. Vitals were stable. Physical therapy worked with the patient and was cleared for discharge home. No acute medical issues. Pain was controlled on oral regimen. Home Meds and New Rx's Prescriptions: New acetaminophen 500 mg tablet 500 mg PO Q6H PRN (Reason: pain) Qty: 60 RF: 2 aspirin 81 mg tablet,delayed release (DR/EC) 81 mg PO BID 30 Days Qty: 60 RF: 0 docusate sodium [Colace] 100 mg capsule 100 mg PO BID Qty: 30 RF: 0 oxycodone 5 mg tablet 5 mg PO Q4H PRN (Reason: severe post-operative pain) Qty: 18 RF: 0 pantoprazole 40 mg tablet,delayed release (DR/EC) 40 mg PO DAILY Qty: 30 RF: 0 naproxen 375 mg tablet 375 mg PO BID Qty: 60 RF: 2 Continued magnesium oxide 400 MG tablet See Rx Instructions .ROUTE .COMPLEX RF: 0 gabapentin 300 MG capsule See Rx Instructions .ROUTE .COMPLEX RF: 0 losartan [Cozaar] 100 MG tablet 100 mg PO DAILY RF: 0 nitroglycerin [Nitrostat] 0.4 MG tablet, sublingual 0.4 mg Sublingual Q5 MIN PRN X3 PRNQty: 15 RF: 0 insulin lispro [Humalog KwikPen Insulin] 100 UNIT/ML insulin pen 30 unit SQ .SLIDING SCALE RF: 0 Lantus Solostar U-100 Insulin 300 UNITS/3 ML insulin pen See Rx Instructions .ROUTE .COMPLEX RF: 0 Jardiance 10 MG tablet 25 mg PO DAILY RF: 0 doxazosin 4 mg Tablet 4 mg PO HS RF: 0 fluticasone propionate 50 mcg/actuation [place],Suspension 1 spray INTRANASAL DAILY RF: 0 hydrochlorothiazide 50 MG tablet 50 mg PO DAILY Qty: 0 RF: 0 Discontinued aspirin [Aspir-81] 81 mg tablet,delayed release (DR/EC) 81 mg PO DAILY RF: 0 naproxen 375 mg Tablet 375 mg PO BID PRN (Reason: Pain) Qty: 60 RF: 3 acetaminophen 500 mg tablet 1,000 mg PO Q8H PRN (Reason: pain) Qty: 90 RF: 3 No Action carvedilol 25 mg tablet 25 mg PO BID RF: 0 Discharge Instructions Additional Instructions: Total Knee Discharge Instructions Activity: The most important activity is to walk. You should try to take short walks a few times a day. It is important that when resting you work on keeping the knee straight. Avoid putting a pillow behind the knee as this will encourage flexion. Work on range of motion exercises as provided by Physical Therapy. - Start outpatient physical therapy within 2 weeks. - You should wear the VERENICE hose on both legs for 2 weeks. You may remove these at night. You may also use any compression sock in place of the VERENICE hose. Dressing: You may remove the Eduin wrap on your leg 2 days after your surgery and put on the VERENICE stocking given to you from the hospital. Keep the surgical dressing (underneath the EDUIN wrap) in place for at least one week. After the first week it may be removed and replaced with light gauze and tape or nothing. The wound and dressing may get wet after 3 days but avoid soaking the dressing or otherwise it will need to be changed. Many people prefer covering the dressing with cling wrap (saran wrap) to minimize it from getting soaked. If it gets wet, just pat dry. If it starts to peel off then it will need to be changed. Medications: - You should take Tylenol and anti-inflammatory Naproxen as your primary pain control medications. - You have been prescribed a stronger pain medication Oxycodone for breakthrough pain, take as needed as prescribed. - You have also been prescribed a stomach acid reduction agent Pantoprozole to help reduce stomach acid and reflux. - You will continue to take your normal dose of Gabapentin at night for restlessness and nerve pain. - You will be taking Aspirin 81mg twice a day for DVT prevention unless instructed otherwise. - If you have constipation you should take Colace (which was prescribed) or Miralax (which may be purchased [id number]). It takes most people 3-4 days to have a bowel movement. Follow-up: 2 weeks If you have any acute concerns or questions, please do not hesitate to contact the office at [phone]. You may contact Dr. Wilson with any questions after hours through the hospital at [phone] or on his cell phone at [phone]. Stand Alone Forms: Nursing Discharge Form Referrals: Yrn Wilson MD [ [facility] STAFF PHYSICIAN] - Activity:: Activity as Tolerated Equipment/Supplies:: Walker Diet:: As Tolerated Discharge Orders Discharge Orders: Discharge Order (Routine); Ordered 01/17/21 Ordered By: Yrn Wilson DS: Summary Time Spent with Patient providing and/or coordinating discharge services: Less than 30 minutes Status at Discharge Functional status at discharge: uses cane/walker Overall status at discharge: patient is progressing back to baseline Mental Status: mental status grossly normal Speech and Movement: speech and movement normal Mood: congruent mood Affect: normal affect Exam Psych Mental Status: mental status grossly normal Speech and Movement: speech and movement normal Mood: congruent mood Affect: normal affect [facility] Medical History Abnormal LFTs Secondary to fartty infiltrate of the liver. 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 Wilson s/p debridement and poly exchange 02/10/20 Family History Maternal Aunt Colon cancer Maternal Aunt Colon cancer Father , 70s Heart disease Social History Smoking/Tobacco Use Status: Never Smoking risk assessment performed?: Yes Alcohol Intake: never Drug use: Never Substance use type: does not use Do you feel safe at home: Yes Do you feel safe in your relationship?: Yes
--- NOTE | 2021-01-17 10:44 | W.INDIABCONS ---
Date of service: 01/17/21 Time of Service: 10:44 Diabetes Inpatient Consult DESCRIPTION/ASSESSMENT: 76 year old male s/p right knee replacement with hx of DM2 and morbid obesity. A1C: 6.8% indicates well controlled DM. Home meds include lispro 30 u PM, jardiance 25 mg po qd. Blood sugars well controlled during day. Current blood sugar regime providing optimal glycemic control at this time. Diabetes education not needed at this time. PLAN: continue current meal plan, will monitor blood sugars,weight and po intake. Time Spent in Nutritional Counseling and Treatment: 0
[2021-01-17 11:01] VITALS: BP 111/53; PULSE 57; RESP 20; TEMP 36.3; O2SAT 95
--- NOTE | 2021-01-17 12:45 | PT.INTREAT ---
Date of service: 01/17/21 Time of Service: 11:00 PT Notes Visit Reasons: R KNEE DJD Inpatient Physical Therapy Treatment Note [facility] Date: 01/17/2021 PRECAUTIONS: Fall, WBAT R SUBJECTIVE: Kurtis is pleasant and agreeable to participating in PT. OBJECTIVE: PAIN: No c/o pain BED MOBILITY/TRANSFERS Supine-sit: I Sit-supine: I Sit-stand: SBA Stand-sit: SBA Bed-Chair: SBA Chair-bed: SBA GAIT Assistive Device: FWW Weight bearing: WBAT R Assist: SBA Distance: 6' + 250' Deviation: Stand rest x1, wide MICHELE THEREX: Patient was instructed in a LE strengthening and stabilization program, performed in a supine position, as per flow sheet. ASSESSMENT: Patient tolerated session well without complaint of R LE pain. He was able to tolerate a progression in gait distance with FWW support and SBA. PLAN: Patient will discharge to home later today, with outpatient PT follow up, recommended. TREATMENT CODE/TIME: 25 minutes; [id number], [id number]
== END 2021-01-17 15:23 | disposition home or self-care (01) | DRG 470 ==
LOC: PDS 17:22 → MS 17:24
PROVIDERS: Admitting Provider Student in an Organized Health Care Education/Training Program; PCP Internal Medicine; Visit Provider Student in an Organized Health Care Education/Training Program
PROC: 0SRC0J9 Replacement of Right Knee Joint with Synthetic Substitute, Cemented, Open Approach (ICD-10-PCS; CPT 27447; principal; 2021-01-16 14:15)
DX: M17.11 Unilateral primary osteoarthritis, right knee (principal); I10 Essential (primary) hypertension; I25.10 Atherosclerotic heart disease of native coronary artery without angina pectoris; I87.2 Venous insufficiency (chronic) (peripheral); E11.9 Type 2 diabetes mellitus without complications; Z79.4 Long term (current) use of insulin; G47.33 Obstructive sleep apnea (adult) (pediatric); E78.5 Hyperlipidemia, unspecified
CPT/HCPCS: 27447; 76942; 97110; 97166; 99238; 97530; J0690; J1100; J1885; J2001; J2405; J2704

== ENCOUNTER → 2021-01-16 07:56 | Outpatient (BNVA) | payer OTHER, SELFPAY ==
--- NOTE | 2021-01-17 08:52 | PT.INIE ---
Date of service: 01/17/21 Time of Service: 08:52 PT Notes Visit Reasons: SURGERY Physical Therapy Inpatient Initial Evaluation Date: 01/20/2021 Referring Doctor: JOURDAN Baires PT Orders: PT CONSULT: Status post Ortho surgery Precautions: Fall. Standard. WBAT on R LE. Patient Profile/Admitting Diagnosis: Kurtis Marie is a 76-year-old male with primary unilateral osteoarthritis of the right knee and status post right total knee arthroplasty on postoperative day 1. PMHX: Medical History (Updated 12/17/20 @ 10:25 by JOURDAN Crump) Abnormal LFTs Secondary to fartty infiltrate of the liver. Arthritis CAD (coronary artery disease) Cellulitis RIGHT LOWER LEG Diabetes History of seizures as a child Hx of myocardial infarction 10/2011 STRESS TEST COMPLETED 11/29/2019 Hyperlipidemia Hypertension Renal insufficiency Surgical History (Updated 12/17/20 @ 10:25 by JOURDAN Crump) colonoscopy (09/02/16) H/O heart artery stent X2 2013 History of tonsillectomy and adenoidectomy History of total left knee replacement (TKR) (12/14/19) Dr. Wilson s/p debridement and poly exchange 02/10/20 Social History/Home Situation: Lives with in a private home with a ramp to enter. will be his primary support. 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 Equipment Owned/DME: Has axillary cruthces, FWW, and SPC Subjective: Agreeable to PT consult. Reports 3/10 pain in the right knee with weight bearing activity. Denies headache, chest pain, and dizziness throughout session. Objective: General Observation: Seated on bedside recliner. IV access in right UE. Eduin wraps to right LE. Cryo/Cuff on right knee. Mental Status: Alert and oriented x4 Pain: 3/10 pain in the knee with weight bearing ROM: Right Upper Extremity: Shoulder Flexion WFL. Shoulder abduction WFL. Elbow flexion WFL. Wrist flexion WFL. Opening and closing of hand WFL. Left Upper Extremity: Shoulder Flexion WFL. Shoulder abduction WFL. Elbow flexion WFL. Wrist flexion WFL. Opening and closing of hand WFL. Right Lower Extremity: Hip flexion WFL. Hip abduction WFL. Knee flexion 10 degrees to 90 degrees. Knee extension -10 degrees. Ankle dorsiflexion WFL. Ankle plantarflexion WFL. Left Lower Extremity: Hip flexion WFL. Hip abduction WFL. Knee flexion 5 degrees to 110 degrees. Knee extension -5 degrees ankle dorsiflexion WFL. Ankle plantarflexion WFL. Strength: Right Upper Extremity: Shoulder flexors 5/5. Shoulder abductors 5/5. Elbow flexors 5/5. Elbow extensors 5/5. Mutual Funds Agent strong. Left Upper Extremity: Shoulder flexors 5/5. Shoulder abductors 5/5. Elbow flexors 5/5. Elbow extensors 5/5. Mutual Funds Agent strong. Right Lower Extremity: Hip flexors 5/5. Hip abductors 5/5. Knee flexors 3-/5. Knee extensors 3-/5. Ankle dorsiflexors 5/5. Ankle plantarflexors 5/5. Left Lower Extremity:Hip flexors 5/5. Hip abductors 5/5. Knee flexors 3-/5. Knee extensors 3-/5. Ankle dorsiflexors 5/5. Ankle plantarflexors 5/5. Sensation: Intact as to pain and pressure on bilateral lower extremities. Bed Mobility/Transfers: Sit to stand standby assist Stand to sit standby assist Bed to chair standby assist Chair to bed standby assist Gait: Guided patient through level surface ambulation of 250 feet using front wheeled walker with WBAT on the right LE requiring only contact-guard assist with step through gait pattern and decreased bell. Reported 3/10 pain in the right knee that subsided with rest. THERA EX: Kurtis was instructed and trained with exercises that he can safely do at home to maximize functional mobility outcomes. A containing written exercises have been provided to client as well. Balance: Static Sitting: Normal Dynamic Sitting: Normal Static Standing: Fair Dynamic Standing: Fair Special Tests: Mobility Limitations Standardized Measure [facility] AM-PAC 6 clicks Basic Mobility Inpatient Short Form: Raw Score: 22 CMS Score: 21% deficit Informed Consent/Education: Patient instructed in purpose of PT consult and plan of care. Assessment: Kurtis demonstrates functional mobility decline requiring the use of a front wheeled walker for all mobility ADL performance, impairment in balance, and increased risk for falls due to postoperative status. Patient presents with clinical signs and symptoms consistent with current/admitting diagnoses that have resulted to mobility limitations, gait instability, generalized weakness, and impairment of motor control as demonstrated by the following impairment level findings: 1. Decreased strength to right knee major muscle groups 2. Impaired standing balance 3. Impaired activity tolerance 4. Limitation of joint range of motion in right knee Impairments are contributing to the following functional limitations: 1. Inability to safely ambulate without assistive device and physical assistance 2. Increase completion time for mobility ADL performance 3. Increased fall risk Patient is assessed as a 81813 moderate complexity based on the following: History: 76-year-old male with impairment level findings, functional limitations, and past medical history as indicated above Examination: Demonstrable impairment in strength, balance, and mobility level with underlying impairments and functional limitations as documented above Presentation:Evolving Decision Makin moderate complexity Goals: Goals X 1 day 1. Supine-Sit independent 2. Sit-Supine independent 3. Sit-Stand independent 4. Stand-Sit independent 5. Bed-Chair independent 6. Chair-Bed independent 7. Independent gait on level surface with use of least restrictive device for at least 300 feet without report of pain nor dyspnea 8. Independent with home exercise program 9. Good static and dynamic standing balance/tolerance Plan of Care/Treatment Plan: 1-2x/day, for 1 day Plan of care has been reviewed with the SCREEN TENDER HELPER providing the service under Physical Therapy direction. Initiate Physical Therapy intervention for strengthening, bed mobility, transfers, gait, stairs, balance training, use of assistive device. DISCHARGE RECOMMENDATIONS: Home when medically cleared by orthopedic surgeon. Outpatient PT services in order to regain premorbid independent level without an assistive device. TREATMENT CODE/TIME: 32224 x 30 minutes, 90272 x 13 minutes, 90178 x 10 minutes beginning at 8:52 AM. Thank you for the opportunity to participate in the care of this patient. Nargsi Bernabe PT, DPT, CLT [facility] [place], [place]
== END ==
PROVIDERS: PCP Internal Medicine; Referring Provider Internal Medicine; Visit Provider Student in an Organized Health Care Education/Training Program
DX: R69 Illness, unspecified (principal)

== ENCOUNTER 2021-01-22 20:29 | Emergency (ER) | payer OTHER, SELFPAY ==
--- NOTE | 2021-01-22 20:30 | ED.GENADUL_ITS ---
Discharge Plan Disposition Patient Disposition: HOME Condition: Stable Discharge Details Clinical Impression: Avulsion of nail, Fracture of toe Primary Care Provider: Patrice Camejo ED Provider: Yancy Rodas Home Meds and New Rx's Prescriptions: New cephalexin 250 mg capsule 250 mg PO QID 5 Days Qty: 20 RF: 0 Continued magnesium oxide 400 MG tablet See Rx Instructions .ROUTE .COMPLEX RF: 0 gabapentin 300 MG capsule See Rx Instructions .ROUTE .COMPLEX RF: 0 losartan [Cozaar] 100 MG tablet 100 mg PO DAILY RF: 0 nitroglycerin [Nitrostat] 0.4 MG tablet, sublingual 0.4 mg Sublingual Q5 MIN PRN X3 PRNQty: 15 RF: 0 insulin lispro [Humalog KwikPen Insulin] 100 UNIT/ML insulin pen 30 unit SQ .SLIDING SCALE RF: 0 Lantus Solostar U-100 Insulin 300 UNITS/3 ML insulin pen See Rx Instructions .ROUTE .COMPLEX RF: 0 Jardiance 10 MG tablet 25 mg PO DAILY RF: 0 doxazosin 4 mg Tablet 4 mg PO HS RF: 0 fluticasone propionate 50 mcg/actuation [place],Suspension 1 spray INTRANASAL DAILY RF: 0 hydrochlorothiazide 50 MG tablet 50 mg PO DAILY Qty: 0 RF: 0 acetaminophen 500 mg tablet 500 mg PO Q6H PRN (Reason: pain) Qty: 60 RF: 2 aspirin 81 mg tablet,delayed release (DR/EC) 81 mg PO BID 30 Days Qty: 60 RF: 0 docusate sodium [Colace] 100 mg capsule 100 mg PO BID Qty: 30 RF: 0 oxycodone 5 mg tablet 5 mg PO Q4H PRN (Reason: severe post-operative pain) Qty: 18 RF: 0 pantoprazole 40 mg tablet,delayed release (DR/EC) 40 mg PO DAILY Qty: 30 RF: 0 naproxen 375 mg tablet 375 mg PO BID Qty: 60 RF: 2 carvedilol 25 mg tablet 25 mg PO BID RF: 0 Discharge Instructions Instructions: Cephalexin (By mouth), Toe Fracture (ED) Additional Instructions: Keep wound clean, dry, covered. Please check your feet at least once per day for signs of infection or new wounds. If you develop redness, warmth, drainage, increased pain, fever/chills or other new/worsening symptoms please seek care urgently once again. There is concern for potential small fracture. Please take the antibiotics as prescribed. Even if symptoms improve, please take the entire course. Try to protect your feet as much as possible to prevent future injury. Wear shoes when outside in the postoperative shoe provided to you tonight when inside your home. Please wear soft. Please keep your upcoming appointment with orthopedics and podiatry. Please call orthopedics tomorrow to discuss the toe injury suffered tonight in the setting of your recent surgery. Please keep your upcoming physical therapy appointment. Referrals: Yrn Wilson MD [ [facility] STAFF PHYSICIAN] - Patrice Camejo MD [Primary Care Provider] - Medical Decision Making Patient is a pleasant 76-year-old male past medical history significant for type 2 diabetes, right total knee arthroplasty. Surgical intervention was performed 6 days ago. He presents to the ED tonight after unknown trauma to the right foot. Patient reports he typically walks around barefoot and kicked something and noticed large amount of blood coming from the avulsed nail. Denies other injury the time of the incident. Patient reports that he has limited sensation and associates this with his diabetes. Per recent note, patient's diabetes are well controlled. I did review recent note. Instructions for patient to remove his surgical dressing 1 week after replacing the leg. He does not appear the patient is a candidate Eduin wrap upon his VERENICE hose. He is not in any socks they were from the hospital. I am concerned about risk of infection and has not been clearing with feet well. Pain I did discuss the case with high risk for injury or infection to his feet based on his neuropathy. He has seen a medical concierge historically but is not followed up with him recently. Plan to cleanse the wound. We do not know the mechanism, plan for x-ray to evaluate for potential. I did consider stenting open the patient's nailbed but I am concerned that a foreign body may increase her infection particularly as some concern for compliance. FINDINGS: Bones/joints: There may be a subtle dorsal fracture of the proximal aspect of the distal tuft 5th toe. This is appreciated best on the lateral view. Fracture appears incomplete. Soft tissues: There is an angled radiopaque metallic density superimposed over the 2nd toe region between the 1st and 2nd proximal phalanges within soft tissues. IMPRESSION: 1. Probable dorsal incomplete fracture distal tuft 5th toe. 2. Concern for radiopaque foreign body seen in the soft tissues at the base of the medial aspect of the 2nd toe. I discussed the findings with the patient. Also spoke with his daughter, Amrita. If patient has foreign body, it does not appear to be an acute injury. We will begin the patient on Keflex prophylactically. I did advise he should follow-up with orthopedics tomorrow to schedule close follow-up exam I discussed the concerns associated with this wound. He does have an appointment next week with orthopedics as well as upcoming appointment with podiatry. Patient I discussed foot care, I also discussed this with his daughter. I am concerned that he is not checking his feet more frequently given his diabetes and neuropathy. We discussed the symptoms of infection when to seek care urgently once again. All of his questions and concerns were addressed and he is in agreement with this plan. HPI General Mode of arrival: wheelchair . Date/Time Provider Initiated Documentation: 01/22/21 20:29 . Limitations to Documentation: no limitations . Information obtained by: patient, RN notes reviewed and old records reviewed . History of Present Illness 76 year old M presents to the emergency department with the chief complaint of right 5th toe nail traumatically avulsed, described as mild (patient denies any pain, reports hx of dm neuropathy), Quality is described as other (none), and is localized to the right and lower extremity. Patient reports no radiation. Patient started experiencing this minute(s) and it has been constant. No relieving factors improve symptom(s), No exacerbating factors reported . Patient notes no other symptoms.. Patient did receive the following treatments prior to arrival, none Related Data Home Medications Medication Instructions Recorded Confirmed losartan [Cozaar] 100 mg PO DAILY 11/01/13 01/16/21 nitroglycerin [Nitrostat] 0.4 mg SUBLINGUAL Q5 MIN PRN X3 11/01/13 01/16/21 PRN #15 tab gabapentin See Rx Instructions .ROUTE 12/18/14 01/16/21 .COMPLEX tab-cap magnesium oxide See Rx Instructions .ROUTE .COMPLEX 12/18/14 01/16/21 Lantus Solostar U-100 Insulin See Rx Instructions .ROUTE .COMPLEX 09/01/16 01/16/21 insulin lispro [Humalog KwikPen 30 unit SQ .SLIDING SCALE 09/01/16 01/16/21 Insulin] Jardiance 25 mg PO DAILY 05/22/18 01/16/21 doxazosin 4 mg PO HS 12/07/19 01/16/21 fluticasone propionate 1 spray INTRANASAL DAILY 02/10/20 01/16/21 hydrochlorothiazide 50 mg PO DAILY #0 tab-cap 02/20/20 01/16/21 acetaminophen 500 mg PO Q6H PRN #60 tab 01/16/21 aspirin 81 mg PO BID 30 Days #60 tab 01/16/21 carvedilol 25 mg PO BID 01/16/21 01/16/21 docusate sodium [Colace] 100 mg PO BID #30 cap 01/16/21 naproxen 375 mg PO BID #60 tab 01/16/21 oxycodone 5 mg PO Q4H PRN #18 tab 01/16/21 pantoprazole 40 mg PO DAILY #30 tab 01/16/21 cephalexin 250 mg PO QID 5 Days #20 cap 01/22/21 Previous Rx's Medication Instructions Recorded nitroglycerin [Nitrostat] 0.4 mg SUBLINGUAL Q5 MIN PRN X3 11/01/13 PRN #15 tab hydrochlorothiazide 50 mg PO DAILY #0 tab-cap 02/20/20 acetaminophen 500 mg PO Q6H PRN #60 tab 01/16/21 aspirin 81 mg PO BID 30 Days #60 tab 01/16/21 docusate sodium [Colace] 100 mg PO BID #30 cap 01/16/21 naproxen 375 mg PO BID #60 tab 01/16/21 oxycodone 5 mg PO Q4H PRN #18 tab 01/16/21 pantoprazole 40 mg PO DAILY #30 tab 01/16/21 cephalexin 250 mg PO QID 5 Days #20 cap 01/22/21 Allergies Allergy/AdvReac Type Severity Reaction Status Date / Time amlodipine besylate AdvReac Mild edema Unverified 01/16/21 11:24 [From Norvasc] enalapril maleate AdvReac Mild cough Unverified 01/16/21 11:24 [From Vasotec] enalaprilat dihydrate AdvReac Mild cough Unverified 01/16/21 11:24 [From Vasotec] pravastatin sodium AdvReac Mild myalgia Unverified 01/16/21 11:24 [From Pravachol] rosuvastatin [From Crestor] AdvReac Mild Other (See Unverified 01/16/21 11:24 Comment) General TONG: 4 Review of Systems Constitutional Constitutional: Reports as per HPI, Denies chills, Denies fever(s), Denies headache(s) and Denies weakness ENT Ears, Nose, Mouth, and Throat: Denies headache(s) Cardiovascular Cardiovascular: Reports as per HPI Respiratory Respiratory: Reports as per HPI and Denies cough Musculoskeletal Musculoskeletal: Reports as per HPI and Denies tingling Integumentary/Breasts Skin/Breast: Reports as per HPI, Denies rash and Reports wounds Neurologic Neurologic: Reports as per HPI, Denies headache(s), Denies tingling, Denies paresthesias and Denies weakness [facility] Medical History Abnormal LFTs Secondary to fartty infiltrate of the liver. 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 Wilson s/p debridement and poly exchange 02/10/20 Family History Maternal Aunt Colon cancer Maternal Aunt Colon cancer Father , 70s Heart disease Social History Smoking/Tobacco Use Status: Never Smoking risk assessment performed?: Yes Alcohol Intake: never Drug use: Never Substance use type: does not use Do you feel safe at home: Yes Do you feel safe in your relationship?: Yes Exam Const General: cooperative, healthy appearing, comfortable, no acute distress, well developed and well groomed Nutritional Appearance: well nourished and overweight Orientation: alert and awake Resp Effort & Inspection: normal respiratory effort, able to speak in complete sentences and no respiratory distress Cardio Rate: regular rate Rhythm: regular rhythm Skin Wounds: wounds noted (5th right toe) Neuro General: patient alert and patient awake Cognition: normal cognition Speech: speech normal Gait: normal gait Motor: muscle tone normal throughout Sensory Exam: no sensory deficits noted Extrem Ankle/foot/toe images: 1. Nails avulsed. Some amount of bleeding from the nailbed. No surrounding swelling, ecchymosis or deformity. Skin in the bilateral lower extremities is thickened and darkened, with associated chronic disease. No evidence of cellulitis. No pain on palpation. Patient is insensate in this area, proprioception is not intact. 2+ distal pulses with good capillary refill. Psych Appearance: grossly normal and well kempt Mental Status: mental status grossly normal Speech and Movement: speech and movement normal
--- NOTE | 2021-01-22 20:30 | DI.RAD_ITS ---
EXAM: XR TOE RT FIFTH CLINICAL HISTORY: kicked something, nail gone, neuropathy. TECHNIQUE: 2D digital imaging was performed. COMPARISON: No exams were available for comparison FINDINGS: There is very subtle suggestion of a nondisplaced fracture of the tuft of the distal phalanx of the 5 th toe. There is no radiopaque foreign body at this level. However, there is a thin metallic radiop aque L shaped foreign body in the soft tissues of the base of the medial aspect of the 2nd toe. IMPRESSION: DATA REPOSITORY: RADIATION DOSE DELIVERED:
[2021-01-22 20:34] VITALS: BP 160/76; RESP 70; TEMP 36; O2SAT 98
--- NOTE | 2021-01-22 21:22 | DI.VRAD_ITS ---
PROCEDURE INFORMATION: Exam: XR Right Toe(s) Exam date and time: 01/22/2021 8:38 PM Age: 76 years old Clinical indication: Pain; Toes; Right; Patient HX: R 5th toe, kicked something, nail gone, neuropathy TECHNIQUE: Imaging protocol: XR Right toes. Views: Minimum 2 views. COMPARISON: No relevant prior studies available. FINDINGS: Bones/joints: There may be a subtle dorsal fracture of the proximal aspect of the distal tuft 5th toe. This is appreciated best on the lateral view. Fracture appears incomplete. Soft tissues: There is an angled radiopaque metallic density superimposed over the 2nd toe region between the 1st and 2nd proximal phalanges within soft tissues. IMPRESSION: 1. Probable dorsal incomplete fracture distal tuft 5th toe. 2. Concern for radiopaque foreign body seen in the soft tissues at the base of the medial aspect of the 2nd toe. Dictated and Authenticated by: Jane Bee MD. Ordering:HARSHIL Haines MD
[2021-01-22] MEDS: Cephalexin 250 MG CAP 500 MG PO (21:56)
== END 2021-01-22 21:51 | disposition home or self-care (01) ==
PROVIDERS: Emergency Provider Physician Assistant; PCP Internal Medicine
DX: S92.531A Displaced fracture of distal phalanx of right lesser toe(s), initial encounter for closed fracture (principal); S91.204A Unspecified open wound of right lesser toe(s) with damage to nail, initial encounter; W22.8XXA Striking against or struck by other objects, initial encounter; E11.9 Type 2 diabetes mellitus without complications; Z96.651 Presence of right artificial knee joint
CPT/HCPCS: 99284; 73660; 99283

== ENCOUNTER 2021-01-31 09:40 | Outpatient (CLI) | payer OTHER, SELFPAY ==
--- NOTE | 2021-01-31 08:45 | DI.RAD_ITS ---
EXAM: XR KNEE RT 1V and XR standing alignment CLINICAL HISTORY: 1ST POST OP R TKA. TECHNIQUE: 2D digital imaging was performed. COMPARISON: CR XR STANDING ALIGNMENT from 12/29/2019 FINDINGS: Since the prior examination the patient has undergone a right total knee replacement. The orthopedic hardware appears in good position. The patient has had a prior left total knee replacement. The hi p joints are well maintained as are the ankles. Vascular calcifications are seen in the soft tissues . No significant leg length discrepancy is noted. IMPRESSION: Status post right total knee replacement. DATA REPOSITORY: RADIATION DOSE DELIVERED:
== END 2021-01-31 09:41 | disposition home or self-care (01) ==
LOC: DIORS 09:41
PROVIDERS: PCP Internal Medicine; Referring Provider Internal Medicine; Visit Provider Physician Assistant
DX: Z96.651 Presence of right artificial knee joint (principal); Z47.1 Aftercare following joint replacement surgery; S92.531A Displaced fracture of distal phalanx of right lesser toe(s), initial encounter for closed fracture; W22.8XXA Striking against or struck by other objects, initial encounter
CPT/HCPCS: 99213; 73560; 77073

== ENCOUNTER → 2021-03-01 09:51 | Outpatient (BNVA) | payer OTHER, SELFPAY | PROVIDERS: PCP Internal Medicine; Referring Provider Internal Medicine; Visit Provider Student in an Organized Health Care Education/Training Program | DX: Z47.1 Aftercare following joint replacement surgery (principal); Z96.651 Presence of right artificial knee joint ==

== ENCOUNTER → 2021-04-12 09:54 | Outpatient (BNVA) | payer OTHER, SELFPAY | PROVIDERS: PCP Internal Medicine; Referring Provider Internal Medicine; Visit Provider Physician Assistant | DX: Z47.1 Aftercare following joint replacement surgery (principal); Z96.651 Presence of right artificial knee joint ==

== ENCOUNTER 2021-08-16 14:59 | Outpatient (REF) | payer OTHER, SELFPAY ==
[2021-08-16 21:05] LABS: Abs Immature Grans 0.02 10^3/uL (0.0-0.06); Absolute Basophil Count 0.02 10^3/uL (0.0-0.2); Absolute Eosinophil Count 0.16 10^3/uL (0.0-0.7); Absolute Lymphocyte Count 0.64 10^3/uL (1.2-3.4); Absolute Monocyte Count 0.43 10^3/uL (0.1-0.8); Absolute Neutrophil Count 3.21 10^3/uL (1.2-6.7); Basophils % 0.4; Eosinophils % 3.6; HCT 43.4 % (40.0-50.0); HGB 13.9 g/dL (13.5-17.5); Immature Grans % 0.4; Lymphocytes % 14.3; MCH 28.1 pg (27.0-33.0); MCV 87.9 fL (80-95); MPV 10.3 fL (8.0-11.0); Monocytes % 9.6; Neutrophils % 71.7; Nucleated RBC 0 %; Platelet Count 122 10^3/uL (130-400); RBC 4.94 10^6/uL (4.36-5.78); RDW 14.9 % (11.8-14.1); RDW-SD 47.4 fL; WBC 4.48 10^3/uL (4.4-10.8)
[2021-08-16 21:34] LABS: ALT 97 U/L (16-63); AST 65 U/L (15-37); Albumin 4.1 g/dL (3.4-5.0); Alkaline Phosphatase 103 U/L (46-116); Anion Gap 8.1 mmol/L (3-11); BUN 41 mg/dL (7-18); Bilirubin, Total 0.4 mg/dL (0.2-1.0); CO2 26.9 mmol/L (21.0-32.0); Calcium 9.6 mg/dL (8.5-10.1); Chloride 106 mmol/L (98-107); Glucose 184 mg/dL (74-106); Potassium 4.8 mmol/L (3.5-5.1); Sodium 141 mmol/L (136-145); TSH 1.01 uIU/mL (0.36-3.74); Total Protein 6.9 g/dL (6.4-8.2)
[2021-08-16 21:39] LABS: CREATININE 1.4 mg/dL (0.70-1.30); Estimated GFR 49.01 (mL/min/1.73m2)
== END 2021-08-16 15:00 | disposition home or self-care (01) ==
LOC: NCHCN 14:59
PROVIDERS: PCP Internal Medicine; Visit Provider Family Medicine
DX: E66.1 Drug-induced obesity (principal); E83.42 Hypomagnesemia; I10 Essential (primary) hypertension; E11.9 Type 2 diabetes mellitus without complications
CPT/HCPCS: 80053; 83036; 84443; 85025

== ENCOUNTER → 2021-09-20 07:49 | Outpatient (BNVA) | payer MEDICARE, SELFPAY | PROVIDERS: PCP Internal Medicine; Referring Provider Internal Medicine; Visit Provider Physical Therapy Assistant | DX: Z12.11 Encounter for screening for malignant neoplasm of colon (principal); Z86.010 Personal history of colon polyps; E11.9 Type 2 diabetes mellitus without complications; I10 Essential (primary) hypertension ==

== ENCOUNTER 2021-09-27 10:48 | Inpatient (IN) | payer MEDICARE, SELFPAY ==
[2021-09-27] VITALS (41 sets, daily range): BP systolic 110–194; BP diastolic 52–143; PULSE 63–112; RESP 4–25; TEMP 36.6–38.6; O2SAT 81–99
--- NOTE | 2021-09-27 | DI.US_ITS ---
Exam(s) US LOWER EXTREMITY VENOUS RT EXAM: US LOWER EXTREMITY VENOUS RT CLINICAL HISTORY: asymmetric edema, concern for DVT. TECHNIQUE: Ultrasound performed using standard protocol. COMPARISON: US US OR ANESTHESIA from 01/16/2021 FINDINGS: Duplex venous ultrasound was performed according to the usual protocol. The deep veins are freely com pressible throughout and there is normal flow augmentation with manual calf compression. 2D and Doppl er evaluation are unremarkable. IMPRESSION: No evidence of deep venous thrombosis of the right lower extremity. DATA REPOSITORY:
--- NOTE | 2021-09-27 10:45 | RT.EKG_ITS ---
APPROVED REPORT Exam: Resting ECG Reason for Exam: lethargic Patient Location: E HR:85 bpm ECG Measurements Heart Rate 85 AXIS KS 345 P 0 QRSd 92 QRS -17 QT 328 T 34 QTc 391 Conclusion Sinus rhythm...normal P axis, V-rate 60- 99 Prolonged KS interval...KS >220, V-rate 50- 90 Physician: no stemi
--- NOTE | 2021-09-27 11:04 | W.ED.GENAD ---
Discharge Plan Disposition Patient Disposition: [facility] INPATIENT Condition: Improving Discharge Details Chief Complaint: GenMedical Clinical Impression: Community acquired pneumonia, Cellulitis of leg, right, Hypoxemia Primary Care Provider: Patrice Camejo ED Provider: Reymundo Moulton Home Meds and New Rx's Prescriptions: No Action loperamide [Imodium A-D] 2 mg capsule 2 mg PO Q6H PRNRF: 0 lidocaine 5 % ointment 1 applic topical QHS RF: 0 ropinirole 1 mg tablet 1 mg PO QHS RF: 0 polyethylene glycol 3350 17 gram/dose powder 238 g PO ONCE Qty: 238 RF: 0 bisacodyl [Dulcolax (bisacodyl)] 5 mg tablet,delayed release (DR/EC) 5 mg PO ONCE Qty: 4 RF: 0 magnesium oxide 400 MG tablet See Rx Instructions .ROUTE .COMPLEX RF: 0 gabapentin 300 MG capsule See Rx Instructions .ROUTE .COMPLEX RF: 0 Lantus U-100 Insulin 100 unit/mL solution 30 unit subcut QAM RF: 0 aspirin 81 mg tablet,delayed release (DR/EC) 81 mg PO BID RF: 0 docusate sodium 100 mg capsule 100 mg PO BID RF: 0 losartan [Cozaar] 100 MG tablet 100 mg PO DAILY RF: 0 nitroglycerin [Nitrostat] 0.4 MG tablet, sublingual 0.4 mg Sublingual Q5 MIN PRN X3 PRNQty: 15 RF: 0 insulin lispro [Humalog KwikPen Insulin] 100 UNIT/ML insulin pen 30 unit SQ .SLIDING SCALE RF: 0 Jardiance 10 MG tablet 25 mg PO DAILY RF: 0 fluticasone propionate 50 mcg/actuation [place],Suspension 1 spray INTRANASAL DAILY RF: 0 hydrochlorothiazide 50 MG tablet 50 mg PO DAILY Qty: 0 RF: 0 acetaminophen 500 mg tablet 500 mg PO Q6H PRN (Reason: pain) Qty: 60 RF: 2 carvedilol 25 mg tablet 25 mg PO BID RF: 0 Medical Decision Making This is a pleasant 76-year-old with a past medical history of coronary artery disease, diabetes, sleep apnea, renal insufficiency, previous NH, chronic venous insufficiency and venous stasis, previous cardiac stent, who presents today for dry cough, shortness of breath, and slight altered mental status. Dry nonproductive cough and shortness of breath has been present for the last 3 days. Denies any fever or chills. He denies chest pain. He denies he denies any history of blood clots. EMS was contacted, upon their arrival his O2 saturation was 91 to 92%. He was started on 10 L nonrebreather which brought his oxygen up to the high 90s, and respiratory effort improved. Patient denies any other complaints otherwise. EMS has no other critical components to add. Physical exam demonstrates mild crackles in left lower lung mae, oxygenation is at 92% on room air. Right lower extremity demonstrates mild edema compared to the left, chronic venous stasis is present, questionable small ulcerated lesion in the anterior landers. Potential cellulitis. Differential includes PE, heart failure, pneumonia, or Covid. Will evaluate for these potential etiologies, patient is ANO x3 at this time, but due to the concern at home for the patient being altered we will evaluate for other concerning etiologies in that regard as well. Screening EKG shows no evidence ofSTEMI. 3:28 PM Patient's laboratory work-up has returned, white count is elevated, mild left shift, renal function near baseline, D-dimer elevated, renal function relatively stable. Lactate elevated at 2.3. proBNP minimally elevated. No signs of right heart strain clinically. CT scan demonstrates evidence of questionable mild infiltrate left lower lung mae, which would correlate to the symptoms I noted clinically on exam. No evidence of pulmonary embolism Covid test is negative. Flu test was negative. Suspect the patient symptoms of shortness of breath and hypoxemia are likely secondary to his mild pneumonia superimposed on his chronic lung disease. Patient did get down to 85% on room air when he took his oxygen off on his own accord while sitting in bed. His oxygen was replaced and his oxygen saturations came back up to the mid 90s. Out of concern for cellulitis of the right lower extremity as well as pneumonia, we will start ceftriaxone and doxycycline IV. I discussed the case with the hospitalist Dr. Ron, she agrees with the assessment and plan. I have extensively reviewed the treatment plan with the patient. I have addressed all patient concerns at this time. I have also discussed the plan with the admitting physician and they agree with the current assessment and plan and have agreed to assume responsibility for the patient. All parties demonstrate verbal understanding and agreement with our assessment and plan at this time. The documentation in this chart was dictated using [employer] dictation software. Please excuse any dictation errors. FINDINGS: There is a poor inspiration. Lungs are grossly clear, the contour of the diaphragm appears fairly well maintained bilaterally. There may be mild cardiomegaly. No evidence of acute process. FINDINGS: Five views were obtained. There is total knee joint replacement position. The components appear well seated. The patient reportedly has an anterior mid leg cellulitis. There is no evidence underlying bony abnormality to suggest the presence of osteomyelitis. There is an apparent cystic lesion of medial malleolus of the distal tibia, this appears to have been present on prior radiographs December 2020. IMPRESSION: No evidence of acute process FINDINGS: CT angiography of the chest was performed with intravenous infusion of 100 cc of Omnipaque 350. The examination is somewhat limited due to patient motion. The lungs are predominantly clear. There is slight pleural prominence which may represent pleural fat and/or small pleural effusions. There is a possible minimal for tracheal air/ground-glass infiltrate in the left lung base laterally period. No evidence of pulmonary embolic disease although the examination is somewhat technically limited due to patient motion.. Thoracic aorta is of normal diameter, no thoracic aortic aneurysm or dissection, major branch vessels appear intact. No mediastinal or hilar adenopathy. Images obtained through the upper abdomen show unremarkable appearance of the visualized portions of the liver. The spleen appears enlarged period. IMPRESSION: No evidence of pulmonary embolic disease and somewhat limited scan. Possible small left basilar infiltrate, possible pneumonia. Note is also made of splenomegaly. HPI General Date/Time Provider Initiated Documentation: 09/27/21 10:49. HPI Narrative: This is a pleasant 76-year-old with a past medical history of coronary artery disease, diabetes, sleep apnea, renal insufficiency, previous NH, chronic venous insufficiency and venous stasis, previous cardiac stent, who presents today for dry cough, shortness of breath, and slight altered mental status. Dry nonproductive cough and shortness of breath has been present for the last 3 days. Denies any fever or chills. He denies chest pain. He denies he denies any history of blood clots. EMS was contacted, upon their arrival his O2 saturation was 91 to 92%. He was started on 10 L nonrebreather which brought his oxygen up to the high 90s, and respiratory effort improved. Patient denies any other complaints otherwise. EMS has no other critical components to add. Related Data Home Medications Medication Instructions Recorded Confirmed losartan [Cozaar] 100 mg PO DAILY 11/01/13 09/20/21 nitroglycerin [Nitrostat] 0.4 mg SUBLINGUAL Q5 MIN PRN X3 11/01/13 09/20/21 PRN #15 tab gabapentin See Rx Instructions .ROUTE 12/18/14 09/20/21 .COMPLEX tab-cap magnesium oxide See Rx Instructions .ROUTE .COMPLEX 12/18/14 09/20/21 insulin lispro [Humalog KwikPen 30 unit SQ .SLIDING SCALE 09/01/16 09/20/21 Insulin] Jardiance 25 mg PO DAILY 05/22/18 09/20/21 fluticasone propionate 1 spray INTRANASAL DAILY 02/10/20 09/20/21 hydrochlorothiazide 50 mg PO DAILY #0 tab-cap 02/20/20 09/20/21 acetaminophen 500 mg PO Q6H PRN #60 tab 01/16/21 09/20/21 carvedilol 25 mg PO BID 01/16/21 09/20/21 aspirin 81 mg tablet,delayed 81 mg PO BID tab 05/22/21 09/20/21 release docusate sodium 100 mg capsule 100 mg PO BID 05/22/21 09/20/21 insulin glargine 100 unit/mL 30 unit SUBCUT QAM ml 05/22/21 09/20/21 subcutaneous solution bisacodyl 5 mg tablet,delayed 5 mg PO ONCE #4 tab 09/20/21 09/20/21 release lidocaine 5 % topical ointment 1 applic TOPICAL QHS 09/20/21 09/20/21 loperamide 2 mg capsule 2 mg PO Q6H PRN 09/20/21 09/20/21 polyethylene glycol 3350 17 238 g PO ONCE #238 g 09/20/21 09/20/21 gram/dose oral powder ropinirole 1 mg tablet 1 mg PO QHS 09/20/21 09/20/21 Previous Rx's Medication Instructions Recorded nitroglycerin [Nitrostat] 0.4 mg SUBLINGUAL Q5 MIN PRN X3 11/01/13 PRN #15 tab hydrochlorothiazide 50 mg PO DAILY #0 tab-cap 02/20/20 acetaminophen 500 mg PO Q6H PRN #60 tab 01/16/21 bisacodyl 5 mg tablet,delayed 5 mg PO ONCE #4 tab 09/20/21 release polyethylene glycol 3350 17 238 g PO ONCE #238 g 09/20/21 gram/dose oral powder Allergies Allergy/AdvReac Type Severity Reaction Status Date / Time amlodipine besylate AdvReac Mild edema Unverified 09/20/21 07:52 [From Norvasc] enalapril maleate AdvReac Mild cough Unverified 09/20/21 07:52 [From Vasotec] enalaprilat dihydrate AdvReac Mild cough Unverified 09/20/21 07:52 [From Vasotec] pravastatin sodium AdvReac Mild myalgia Unverified 09/20/21 07:52 [From Pravachol] from Lipitor rosuvastatin [From Crestor] AdvReac Mild Myalgia Unverified 09/20/21 07:52 General Stated Complaint: GenMedical TONG: 3 Review of Systems All systems reviewed & are unremarkable except as noted in HPI and below PFSH Medical History Abnormal LFTs Secondary to fartty infiltrate of the liver. Arthritis CAD (coronary artery disease) Cellulitis RIGHT LOWER LEG Chronic lower back pain Diabetes Hearing loss History of seizures as a child Hx of myocardial infarction 10/2011 STRESS TEST COMPLETED 11/29/2019 Hyperlipidemia Hypertension Osteoarthritis Renal insufficiency Sleep apnea with use of continuous positive airway pressure (CPAP) Tubulovillous adenoma polyp of colon Noted by colonoscopy. 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 Wilson s/p debridement and poly exchange 02/10/20 History of total right knee replacement (01/16/21) Family History Maternal Aunt Colon cancer Maternal Aunt Colon cancer Father , 70s Heart disease Social History Smoking/Tobacco Use Status: Never Smoking risk assessment performed?: Yes Alcohol Intake: never Drug use: Never Substance use type: does not use Do you feel safe at home: Yes Do you feel safe in your relationship?: Yes Exam Narrative Exam Narrative: 1.Const: Well-nourished, Well-developed, appearing stated age 2.Eyes: PERRL, no conjunctival injection, and symmetrical lids. 3.ENT: Atraumatic external nose and ears. Moist MM. Neck: Symmetric, trachea midline, No thyromegaly. 4.CVS: +S1/S2, No murmurs or gallops. Peripheral pulses 2+ and equal in all extremities. Brisk capillary refill in all extremities. 5.RESP: Mildly increased respiratory effort, crackles in the left lower lung field. 6.GI: Soft, Nontender/Nondistended, No hepatosplenomegaly. No guarding or rebound. 7.MSK: Normocephalic/Atraumatic, Extremities w/o deformity. No cyanosis or clubbing, chronic venous stasis is present in both lower extremities, worse on the right than the left. Patient's right lower extremity does appear slightly more edematous in comparison to the left. No calf tenderness. Small what appears to be chronic ulcerated lesion on the anterior landers is present. Mild warmth compared to the left. Difficult to visualize redness due to the dark chronic nature of the skin. No significant tenderness. No clinical evidence of cerulea dolens. Peripheral pulses +2 bilaterally 8.Skin: Warm, Dry. No rashes or lesions. 9.Neuro: public speaking coach II-XII grossly intact. Sensation grossly intact, no focal neurologic deficits. 10.Psych: (AAO) x3. Appropriate mood and affect Course Vital Signs Vital signs: Vital Signs Temperature 36.6 C 09/27/21 10:52 Pulse 92 H 09/27/21 10:52 Respiratory Rate 20 09/27/21 10:52 Blood Pressure 153/89 H 09/27/21 10:52 Pulse Oximetry 95 09/27/21 10:52 Temperature 36.6 C 09/27/21 10:52 Temperature Source Temporal Artery Scan 09/27/21 10:52 Pulse 92 H 09/27/21 10:52 Respiratory Rate 20 09/27/21 10:52 Blood Pressure 153/89 H 09/27/21 10:52 Blood Pressure Position Sitting 09/27/21 10:52 Pulse Oximetry 95 09/27/21 10:52 Oxygen Delivery Method Room Air 09/27/21 10:52 Oxygen Flow Rate 0 09/27/21 10:52 Pain Level 0 09/27/21 10:52 Lab/Test Results Lab/Test Results: 09/27/21 10:59 Blood Blood Culture - Pending 09/27/21 10:59 Blood Blood Culture - Pending
[2021-09-27 11:22] LABS: BE (Venous) 1 mmol/L (-2-3); HCO3 (Venous) 26 mmol/L (23-28); O2 Sat (Venous) 47 %; TCO2 (Venous) 24 mmol/L (24-29); pCO2 (Venous) 47 mmHg (41-51); pH (Venous) 7.36 (7.31-7.41); pO2 (Venous) 26 mmHg
[2021-09-27 11:23] LABS: Abs Immature Grans 0.08 10^3/uL (0.0-0.06); Absolute Basophil Count 0.04 10^3/uL (0.0-0.2); Absolute Eosinophil Count 0.01 10^3/uL (0.0-0.7); Absolute Lymphocyte Count 0.21 10^3/uL (1.2-3.4); Absolute Monocyte Count 0.64 10^3/uL (0.1-0.8); Absolute Neutrophil Count 11.54 10^3/uL (1.2-6.7); Basophils % 0.3; Eosinophils % 0.1; HGB 15.3 g/dL (13.5-17.5); Immature Grans % 0.6; Lymphocytes % 1.7; MCH 29.1 pg (27.0-33.0); MCHC 32.6 % (32.0-36.0); MCV 89.5 fL (80-95); Monocytes % 5.1; Neutrophils % 92.2; Nucleated RBC 0 %; Platelet Count 122 10^3/uL (130-400); RBC 5.25 10^6/uL (4.36-5.78); RDW 15.3 % (11.8-14.1); RDW-SD 50.6 fL; WBC 12.52 10^3/uL (4.4-10.8)
[2021-09-27 11:26] LABS: Lactate 2.3 mmol/L (0.6-1.4)
[2021-09-27 11:34] LABS: Ammonia 10 umol/L (11-32)
[2021-09-27 11:38] LABS: INR 1.2 (0.9-1.1); PTT Activated 26.7 sec (21.0-27.5); Prothrombin Time 11.6 sec (9.3-11.0)
[2021-09-27 11:45] LABS: ALT 84 U/L (16-63); AST 62 U/L (15-37); Albumin 4.1 g/dL (3.4-5.0); Alkaline Phosphatase 108 U/L (46-116); Anion Gap 8.1 mmol/L (3-11); BUN 47 mg/dL (7-18); Bilirubin, Total 0.9 mg/dL (0.2-1.0); CO2 27.9 mmol/L (21.0-32.0); CREATININE 1.7 mg/dL (0.70-1.30); Calcium 9.3 mg/dL (8.5-10.1); Chloride 104 mmol/L (98-107); Estimated GFR 39.18 (mL/min/1.73m2); Glucose 215 mg/dL (74-106); NT-proBNP 334 pg/mL (<300); Sodium 140 mmol/L (136-145); Total Protein 7.5 g/dL (6.4-8.2); Troponin I < 0.05 ng/mL (<0.06)
--- NOTE | 2021-09-27 11:45 | DI.RAD_ITS ---
Exam(s) XR PORTABLE CHEST AP EXAM: XR PORTABLE CHEST AP CLINICAL HISTORY: sob, ams TECHNIQUE: COMPARISON: CR XR CHEST 1V IN DI DEPT from 03/13/2020 FINDINGS: There is a poor inspiration. Lungs are grossly clear, the contour of the diaphragm appears fairly we ll maintained bilaterally. There may be mild cardiomegaly. No evidence of acute process. IMPRESSION: RADIATION DOSE DELIVERED: Total DLP
--- NOTE | 2021-09-27 11:45 | DI.RAD_ITS ---
Exam(s) XR TIB/FIB RT EXAM: XR TIB/FIB RT CLINICAL HISTORY: anterior midshaft landers cellulitis, eval for osteo TECHNIQUE: COMPARISON: CR XR STANDING ALIGNMENT from 01/31/2021 FINDINGS: Five views were obtained. There is total knee joint replacement position. The components appear wel l seated. The patient reportedly has an anterior mid leg cellulitis. There is no evidence underlying bony abno rmality to suggest the presence of osteomyelitis. There is an apparent cystic lesion of medial malleolus of the distal tibia, this appears to have been present on prior radiographs December 2020. IMPRESSION: No evidence of acute process. RADIATION DOSE DELIVERED: Total DLP
[2021-09-27 11:53] LABS: D-Dimer 830 ng/mlFEU (<500)
--- NOTE | 2021-09-27 12:00 | DI.CT_ITS ---
Exam(s) CT HEAD WO EXAM: CT HEAD WO CLINICAL HISTORY: sob, hypoxic, elevated dimer, eval for PE. TECHNIQUE: Imaging Protocol: Axial computed tomography images with coronal and sagittal reformatted images were created and reviewed COMPARISON: No exams were available for comparison FINDINGS: There is mild generalized cerebral atrophy. No evidence of acute intracranial hemorrhage, mass effect, or midline shift. The orbital structures are unremarkable. The temporal bone structures appear intact. Calvarium: Normal. Visualized Paranasal sinuses/Mastoids: Clear. IMPRESSION: No evidence of acute intracranial process. RADIATION DOSE DELIVERED: Total DLP Total DLP CTDIvol DATA REPOSITORY: All CT scans at this facility are submitted to the National Radiology Data Registry (NRDR) Dose Index Registry (DIR) with the [employer] (A[employer]). RADIATION OPTIMIZATION: All CT scans at this facility use at least one of these dose optimization te chniques: automated exposure control; mA and/or kV adjustment per patient size (includes targeted exa ms where dose is matched to clinical indication); or iterative reconstruction.
--- NOTE | 2021-09-27 12:00 | DI.CT_ITS ---
Exam(s) CT CHEST PE CTA EXAM: CT CHEST PE CTA CLINICAL HISTORY: AMS, confused. TECHNIQUE: Imaging Protocol: Axial CT angiography was performed with multi-slice acquisition and mu lti-planar and/or 3D reconstructions. CONTRAST MATERIAL: Intravenous: Omnipaque 350 Contrast volume:structured data in ml COMPARISON: No exams were available for comparison FINDINGS: CT angiography of the chest was performed with intravenous infusion of 100 cc of Omnipaque 350. The examination is somewhat limited due to patient motion. The lungs are predominantly clear. There is slight pleural prominence which may represent pleural fa t and/or small pleural effusions. There is a possible minimal for tracheal air/ground-glass infiltra te in the left lung base laterally period. No evidence of pulmonary embolic disease although the examination is somewhat technically limited due to patient motion.. Thoracic aorta is of normal diameter, no thoracic aortic aneurysm or dissection , major branch vessels appear intact. No mediastinal or hilar adenopathy. Images obtained through the upper abdomen show unremarkable appearance of the visualized portions of the liver. The spleen appears enlarged period. IMPRESSION: No evidence of pulmonary embolic disease and somewhat limited scan. Possible small left basilar infi ltrate, possible pneumonia. Note is also made of splenomegaly. RADIATION DOSE DELIVERED: 503.84 mGy.cm Total DLP 503.84 mGy.cm Total DLP 16.43 mGy CTDIvol DATA REPOSITORY: All CT scans at this facility are submitted to the National Radiology Data Registry (NRDR) Dose Index Registry (DIR) with the [employer] (ACR). RADIATION OPTIMIZATION: All CT scans at this facility use at least one of these dose optimization te chniques: automated exposure control; mA and/or kV adjustment per patient size (includes targeted exa ms where dose is matched to clinical indication); or iterative reconstruction.
[2021-09-27 12:28] LABS: COVID-19 PCR Negative (Negative)
--- NOTE | 2021-09-27 12:34 | NUR.NOTE ---
Nursing Note: Pt rang for assistance, this nurse answered right away, but by the time this nurse was able to gown and mask to go in, pt had gotten to end of bed and was attempting to stand to urinate. Pt SOB, had removed his NC and was starting to slip off the bed. Assisted pt to urinate, as pt had begun to urinate all over himself. Pt still passes orientation exams, just seems very determined to accomplish certain tasks. Pt provided with repositioning, reacquainted with call macias and reattched to oxygen NC. SaO2 RA 85% with good pleth, appears SOB.
[2021-09-27 12:42] LABS: Bilirubin Negative (Negative); Blood Negative (Negative); Clarity Clear (Clear); Glucose 500 mg/dL (Negative); Ketones Negative (Negative); Leukocyte Esterase Negative (Negative); Nitrite Negative (Negative); Specific Gravity 1.015 (1.005-1.025); Urobilinogen 0.2 EU/dL (Up TO 0.2); pH 5.5 (5-8)
--- NOTE | 2021-09-27 13:50 | NUR.NOTE ---
Nursing Note: Spoke with Pt's to give update. aware COVID negative and awaiting other testing results. Pt awaiting CT scan.
[2021-09-27] MEDS: Normal Saline 500 ML IV (14:30)
[2021-09-27 14:44] LABS: Troponin I < 0.05 ng/mL (<0.06)
[2021-09-27] MEDS: Normal Saline - Diluent 50 ML VIAL IV (15:09)
[2021-09-27] MEDS: cefTRIAXone 2 GM/50 ML BAG IVPB (15:38)
[2021-09-27] MEDS: DOXYCYCLINE 100 MG in Normal Saline 100 ML IVPB (16:10)
--- NOTE | 2021-09-27 16:46 | W.PM.HP.N ---
Date of service: 09/27/21 Time of Service: 16:46 Assessment and Plan Assessment and plan (1) Community acquired pneumonia: Status: Acute Assessment and plan: Left lower lobe infiltrate by CT scan. Consistent with his presentation of shortness of breath and cough. Will treat with ceftriaxone and doxycycline. Oxygen supplementation. (2) Hypoxemia: Status: Acute Assessment and plan: Pulmonary embolism has been ruled out. Likely on the basis of his underlying pneumonia. (3) Diabetes mellitus type 2: Status: Chronic Assessment and plan: Blood sugar is running high. We will continue his usual Lantus. (4) Obstructive sleep apnea syndrome: Status: Chronic Assessment and plan: He wears nocturnal CPAP. We will see if he can bring in his home device.. (5) Discharge planning issues: Status: Acute Assessment and plan: He will likely be here a few days clearing this pneumonia and getting back on his feet. Will admit to [facility] as a regular admit. He does not want aggressive resuscitative measures if indeed his condition deteriorates where he cannot likely to survive. History of Present Illness History of Present Illness Chief Complaint: Left lower lobe pneumonia/shortness of breath Narrative: 76-year-old man who presents with worsening shortness of breath over the last 3 days. He describes a dry cough and scratchy throat. He is unsure if he had a fever. product demonstrator found him with an O2 sat of 92% on room air. He was mildly confused. In the ED he maintained his sats with minimal O2 supplementation but when he took his oxygen off his sats fell to 85%. His D-dimer was elevated, a CT angiogram showed no evidence of pulmonary embolism. There was a slight left lower lobe infiltrate by CT scan. Covid negative/influenza negative. He is being admitted to [facility] for continued IV antibiotics and oxygen therapy. Review of Systems Narrative: He was well until about 3 days ago when he developed cough and shortness of breath. He has no exposure to Covid. He lives with his who is well. He has a history of heart disease but no recent chest pain. No bowel or bladder problems reported. He always has a swollen right leg since his knee replacement. He has had that checked for clot several times. [facility] Medical History Abnormal LFTs Secondary to fartty infiltrate of the liver. Arthritis CAD (coronary artery disease) Cellulitis RIGHT LOWER LEG Chronic lower back pain Diabetes Hearing loss History of seizures as a child Hx of myocardial infarction 10/2011 STRESS TEST COMPLETED 11/29/2019 Hyperlipidemia Hypertension Osteoarthritis Renal insufficiency Sleep apnea with use of continuous positive airway pressure (CPAP) Tubulovillous adenoma polyp of colon Noted by colonoscopy. 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 Wilson s/p debridement and poly exchange 02/10/20 History of total right knee replacement (01/16/21) Family History Maternal Aunt Colon cancer Maternal Aunt Colon cancer Father , 70s Heart disease Social History Smoking/Tobacco Use Status: Never Smoking risk assessment performed?: Yes Alcohol Intake: never Drug use: Never Substance use type: does not use Do you feel safe at home: Yes Do you feel safe in your relationship?: Yes Meds Allergies and Home Medications Allergies Allergy/AdvReac Type Severity Reaction Status Date / Time amlodipine besylate AdvReac Mild edema Unverified 09/20/21 07:52 [From Norvasc] enalapril maleate AdvReac Mild cough Unverified 09/20/21 07:52 [From Vasotec] enalaprilat dihydrate AdvReac Mild cough Unverified 09/20/21 07:52 [From Vasotec] pravastatin sodium AdvReac Mild myalgia Unverified 09/20/21 07:52 [From Pravachol] from Lipitor rosuvastatin [From Crestor] AdvReac Mild Myalgia Unverified 09/20/21 07:52 Home Medications Medication Instructions Recorded Confirmed Type losartan [Cozaar] 100 mg PO DAILY 11/01/13 09/20/21 History nitroglycerin [Nitrostat] 0.4 mg SUBLINGUAL Q5 MIN PRN X3 11/01/13 09/20/21 Rx PRN #15 tab gabapentin See Rx Instructions .ROUTE 12/18/14 09/20/21 History .COMPLEX tab-cap magnesium oxide See Rx Instructions .ROUTE .COMPLEX 12/18/14 09/20/21 History insulin lispro [Humalog KwikPen 30 unit SQ .SLIDING SCALE 09/01/16 09/20/21 History Insulin] Jardiance 25 mg PO DAILY 05/22/18 09/20/21 History fluticasone propionate 1 spray INTRANASAL DAILY 02/10/20 09/20/21 History hydrochlorothiazide 50 mg PO DAILY #0 tab-cap 02/20/20 09/20/21 Rx acetaminophen 500 mg PO Q6H PRN #60 tab 01/16/21 09/20/21 Rx carvedilol 25 mg PO BID 01/16/21 09/20/21 History aspirin 81 mg tablet,delayed 81 mg PO BID tab 05/22/21 09/20/21 History release docusate sodium 100 mg capsule 100 mg PO BID 05/22/21 09/20/21 History insulin glargine 100 unit/mL 30 unit SUBCUT QAM ml 05/22/21 09/20/21 History subcutaneous solution bisacodyl 5 mg tablet,delayed 5 mg PO ONCE #4 tab 09/20/21 09/20/21 Rx release lidocaine 5 % topical ointment 1 applic TOPICAL QHS 09/20/21 09/20/21 History loperamide 2 mg capsule 2 mg PO Q6H PRN 09/20/21 09/20/21 History polyethylene glycol 3350 17 238 g PO ONCE #238 g 09/20/21 09/20/21 Rx gram/dose oral powder ropinirole 1 mg tablet 1 mg PO QHS 09/20/21 09/20/21 History Exam Narrative Exam Narrative: On exam he is quite overweight with a large abdomen. He has multiple skin tags around his neck and chest. He seems relatively comfortable at about 30 degrees supine. He states he feels better. He is able to pull himself into an upright sitting position. Strength appeared to be good. His posterior lung exam notable for a few scattered crackles but fairly nonspecific. Otherwise good air movement throughout. While supine his heart sounds sounded regular, there was no significant murmur. His abdomen is quite massively obese but overall nontender in all four quadrants. He has a large dark pigmented area just left of midline about 10 to 12 cm in diameter from his insulin injections. There is no evidence of a cellulitis or infection. Both lower extremities are notable for recent knee replacement surgeries. Both knees are somewhat warm to palpation but there is no overlying erythema or tenderness. He has chronic venous stasis changes of both lower extremities with scarring and hemosiderin deposition. There is a 2 cm crust over the right landers that is healing and does not appear infected. He has tense edema of both lower extremities right greater than left. No tenderness. Otherwise they appear well perfused. Neurologically he is able to attend. He is hard of hearing. His speech was coherent. He was able to tell the time but was unsure whether it was night or day. (He has been here for five and half hours) overall I did not feel that he was markedly confused. Results Imaging CT scan - chest: report reviewed (No evidence of pulmonary embolism, possible left lower lobe infiltrate) Additional studies: Sinus rhythm, prolonged [place] interval EKG: report reviewed Labs Result diagrams: 09/27/21 11:10 09/27/21 11:10 Labs: Laboratory Results - last 24 hr 09/27/21 09/27/21 09/27/21 11:08 11:10 11:10 WBC RBC Hgb Hct MCV MCH MCHC RDW Plt Count MPV Immature Gran % Neutrophils % Lymphocytes % Monocytes % Eosinophils % Basophils % Nucleated RBC % Absolute Neutrophils Absolute Lymphocytes Absolute Monocytes Absolute Eosinophils Absolute Basophils PT INR APTT D-Dimer 830 H VBG pH VBG pCO2 VBG pO2 VBG HCO3 VBG Total CO2 VBG O2 Saturation VBG Base Excess VBG Lactate Sodium Potassium Chloride Carbon Dioxide Anion Gap BUN Creatinine Estimated GFR/1.73 m2 Glucose Calcium Total Bilirubin AST ALT Alkaline Phosphatase Ammonia 10 L Troponin I NT-Pro-B Natriuret Pep Total Protein Albumin Urine Color Urine Clarity Urine pH Ur Specific [place] Urine Protein Urine Ketones Urine Blood Urine Nitrite Urine Bilirubin Urine Urobilinogen Ur Leukocyte Esterase Urine Glucose COVID-19 Source NASOPHARYX SARS-CoV-2 (PCR) Negative 09/27/21 09/27/21 09/27/21 11:10 11:10 11:10 WBC RBC Hgb Hct MCV MCH MCHC RDW Plt Count MPV Immature Gran % Neutrophils % Lymphocytes % Monocytes % Eosinophils % Basophils % Nucleated RBC % Absolute Neutrophils Absolute Lymphocytes Absolute Monocytes Absolute Eosinophils Absolute Basophils PT INR APTT D-Dimer VBG pH 7.36 VBG pCO2 47 VBG pO2 26 VBG HCO3 26 VBG Total CO2 24 VBG O2 Saturation 47 VBG Base Excess 1 VBG Lactate 2.3 H* Sodium 140 Potassium 5.0 Chloride 104 Carbon Dioxide 27.9 Anion Gap 8.1 BUN 47 H Creatinine 1.7 H Estimated GFR/1.73 m2 39.18 Glucose 215 H Calcium 9.3 Total Bilirubin 0.9 AST 62 H ALT 84 H Alkaline Phosphatase 108 Ammonia Troponin I < 0.05 NT-Pro-B Natriuret Pep 334 H Total Protein 7.5 Albumin 4.1 Urine Color Urine Clarity Urine pH Ur Specific [place] Urine Protein Urine Ketones Urine Blood Urine Nitrite Urine Bilirubin Urine Urobilinogen Ur Leukocyte Esterase Urine Glucose COVID-19 Source SARS-CoV-2 (PCR) 09/27/21 09/27/21 09/27/21 11:10 11:10 12:33 WBC 12.52 H RBC 5.25 Hgb 15.3 Hct 47.0 MCV 89.5 MCH 29.1 MCHC 32.6 RDW 15.3 H Plt Count 122 L MPV 10.0 Immature Gran % 0.6 Neutrophils % 92.2 Lymphocytes % 1.7 Monocytes % 5.1 Eosinophils % 0.1 Basophils % 0.3 Nucleated RBC % 0 Absolute Neutrophils 11.54 H Absolute Lymphocytes 0.21 L Absolute Monocytes 0.64 Absolute Eosinophils 0.01 Absolute Basophils 0.04 PT 11.6 H INR 1.2 H APTT 26.7 D-Dimer VBG pH VBG pCO2 VBG pO2 VBG HCO3 VBG Total CO2 VBG O2 Saturation VBG Base Excess VBG Lactate Sodium Potassium Chloride Carbon Dioxide Anion Gap BUN Creatinine Estimated GFR/1.73 m2 Glucose Calcium Total Bilirubin AST ALT Alkaline Phosphatase Ammonia Troponin I NT-Pro-B Natriuret Pep Total Protein Albumin Urine Color Yellow Urine Clarity Clear Urine pH 5.5 Ur Specific [place] 1.015 Urine Protein Negative Urine Ketones Negative Urine Blood Negative Urine Nitrite Negative Urine Bilirubin Negative Urine Urobilinogen 0.2 Ur Leukocyte Esterase Negative Urine Glucose 500 H COVID-19 Source SARS-CoV-2 (PCR) 09/27/21 14:13 WBC RBC Hgb Hct MCV MCH MCHC RDW Plt Count MPV Immature Gran % Neutrophils % Lymphocytes % Monocytes % Eosinophils % Basophils % Nucleated RBC % Absolute Neutrophils Absolute Lymphocytes Absolute Monocytes Absolute Eosinophils Absolute Basophils PT INR APTT D-Dimer VBG pH VBG pCO2 VBG pO2 VBG HCO3 VBG Total CO2 VBG O2 Saturation VBG Base Excess VBG Lactate Sodium Potassium Chloride Carbon Dioxide Anion Gap BUN Creatinine Estimated GFR/1.73 m2 Glucose Calcium Total Bilirubin AST ALT Alkaline Phosphatase Ammonia Troponin I < 0.05 NT-Pro-B Natriuret Pep Total Protein Albumin Urine Color Urine Clarity Urine pH Ur Specific [place] Urine Protein Urine Ketones Urine Blood Urine Nitrite Urine Bilirubin Urine Urobilinogen Ur Leukocyte Esterase Urine Glucose COVID-19 Source SARS-CoV-2 (PCR) Last Vital Signs Temp 36.6 C 09/27/21 10:52 Pulse 79 09/27/21 14:01 Resp 20 09/27/21 14:19 BP 159/60 H 09/27/21 14:01 Pulse Ox 94 09/27/21 14:10 PAWSS Pt Consumed Any Amount of Alcohol Within the Last 30 days OR had positive GABRIELE Upon Admission: No
--- NOTE | 2021-09-27 17:56 | NUR.NOTE ---
Nursing Note:Attempted to call back for report- charge nurse unavailable.
[2021-09-27] MEDS: Aspirin E.C. 81 MG TABEC PO (19:24)
[2021-09-27] MEDS: Docusate Sodium 100 MG CAP PO (19:24)
[2021-09-27] MEDS: Enoxaparin 40 MG/0.4 ML SYR SC (19:25)
[2021-09-27] MEDS: Albuterol/Ipratropium 3 ML UPD VIAL UPD ×2 (19:25→23:26)
[2021-09-27] MEDS: Gabapentin 300 MG CAP 900 MG PO (19:25)
[2021-09-27] MEDS: Carvedilol 25 MG TAB PO (19:49)
[2021-09-27] MEDS: Acetaminophen 325 MG TAB PO (19:49)
[2021-09-27] MEDS: Insulin Aspart 300 UNITS/3 ML PEN SC (19:57)
--- NOTE | 2021-09-27 20:22 | RESPIRATORY ---
Pt says he uses a cpap of 16 at home but does not want to use the hospital unit here.
[2021-09-27] MEDS: Magnesium Oxide 400 MG TAB PO (21:44)
[2021-09-28] VITALS (8 sets, daily range): BP systolic 102–145; BP diastolic 45–74; PULSE 72–88; RESP 2–22; TEMP 36.7–38.5; O2SAT 94–97
[2021-09-28] MEDS: VANCOMYCIN/WATER (PEG) 2 GM/400 ML BAG IVPB (01:40)
[2021-09-28] MEDS: DOXYCYCLINE 100 MG in Normal Saline 100 ML IVPB ×2 (03:55→16:09)
[2021-09-28] MEDS: Albuterol/Ipratropium 3 ML UPD VIAL UPD ×4 (06:34→23:41)
[2021-09-28 06:55] LABS: Abs Immature Grans 0.04 10^3/uL (0.0-0.06); Absolute Basophil Count 0.03 10^3/uL (0.0-0.2); Absolute Lymphocyte Count 0.34 10^3/uL (1.2-3.4); Absolute Monocyte Count 0.78 10^3/uL (0.1-0.8); Absolute Neutrophil Count 8.47 10^3/uL (1.2-6.7); Basophils % 0.3; HCT 44.1 % (40.0-50.0); Immature Grans % 0.4; Lymphocytes % 3.5; MCH 28.4 pg (27.0-33.0); MCHC 31.7 % (32.0-36.0); MCV 89.5 fL (80-95); MPV 10.3 fL (8.0-11.0); Monocytes % 8.1; Neutrophils % 87.7; Nucleated RBC 0 %; RBC 4.93 10^6/uL (4.36-5.78); RDW 15.9 % (11.8-14.1); RDW-SD 52.2 fL; WBC 9.66 10^3/uL (4.4-10.8)
[2021-09-28 07:00] LABS: Anion Gap 9.8 mmol/L (3-11); BUN 50 mg/dL (7-18); CO2 25.2 mmol/L (21.0-32.0); CREATININE 1.9 mg/dL (0.70-1.30); Calcium 8.9 mg/dL (8.5-10.1); Chloride 102 mmol/L (98-107); Estimated GFR 34.46 (mL/min/1.73m2); Glucose 207 mg/dL (74-106); Magnesium 1.9 mg/dL (1.8-2.4); Potassium 4.6 mmol/L (3.5-5.1); Sodium 137 mmol/L (136-145)
[2021-09-28 07:11] LABS: Hemoglobin A1C 7.2 % (<5.7)
[2021-09-28 07:22] LABS: Diff Comment PLT Morph Reviewed; Platelet Count 93 10^3/uL (130-400); RBC Morphology Normal
--- NOTE | 2021-09-28 07:27 | INITIAL_ITS ---
- If Service Date Differs Date of service: 09/28/21 Time of Service: 07:27 Care Management Initial Assess REASON FOR HOSPITALIZATION:: CAP, Hypoxia PAST MEDICAL HISTORY/PAST SURGICAL HISTORY:: Medical History . Abnormal LFTs. Secondary to fartty infiltrate of the liver. Arthritis. CAD (coronary artery disease). Cellulitis. RIGHT LOWER LEG. Chronic lower back pain. Diabetes. Hearing loss. History of seizures as a child. Hx of myocardial infarction. 10/2011. STRESS TEST COMPLETED 11/29/2019. Hyperlipidemia. Hypertension. Osteoarthritis. Renal insufficiency. Sleep apnea with use of continuous positive airway pressure (CPAP). Tubulovillous adenoma polyp of colon. Noted by colonoscopy. Venous insufficiency. Surgical History . colonoscopy (09/02/16). H/O heart artery stent. X2 2013. History of tonsillectomy and adenoidectomy. 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 Dr. Wilson. s/p debridement and poly exchange 02/10/20. History of total right knee replacement (01/16/21) PREVIOUS FUNCTIONAL STATUS/SOCIAL/FAMILY SUPPORTS:: Kurtis resides in [place] with his , Jessica. Their daughter, Amrita and grandchildren also reside in [place]. 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 He is independent at baseline with supportive family and friends. CURRENT FUNCTIONAL STATUS:: Kurtis was sitting on the side of his bed eating his lunch when CM met with him. He denies concerns and is waiting for his to come visit him. ADVANCE DIRECTIVES:: On file, Jessica listed as agent. Has patient been provided with info about the portal/API?: Yes Did the patient sign up for the portal?: Yes (prior to admission) CODE STATUS:: Full Code INSURANCE COVERAGE / FINANCIAL ISSUES:: MCR Replacement Policy. Commericial Medicare Replacement. Financial Assistance 100% CURRENT HOME/COMMUNITY SERVICES/EQUIPMENT:: New CPAP unit to be delivered, reportedly ordered by the sleep clinic. Has MOW and uses a FWW. PRIMARY CARE PHYSICIAN:: Patrice Camejo POTENTIAL DISCHARGE NEEDS:: Follow up appointments PATIENT/FAMILY EDUCATION NEEDS:: Review discharge instructions, limitations and plan to follow up with community providers. ask me three TRANSPORTATION:: via private vehicle by family. PLAN:: Anticipate Kurtis will return home when medically ready via private vehicle with family. He will likely benefit from new [facility] SN/PT services. CM will continue to support discharge planning needs.
[2021-09-28] MEDS: Carvedilol 25 MG TAB PO ×2 (07:56→19:54)
[2021-09-28] MEDS: Aspirin E.C. 81 MG TABEC PO ×2 (07:56→19:54)
[2021-09-28] MEDS: Normal Saline Flush 10 ML SYR IVP ×2 (07:56→18:51)
[2021-09-28] MEDS: Losartan 50 MG TAB 100 MG PO (07:56)
[2021-09-28] MEDS: Gabapentin 300 MG CAP 600 MG PO (07:57)
[2021-09-28] MEDS: Docusate Sodium 100 MG CAP PO ×2 (07:57→19:54)
[2021-09-28] MEDS: hydroCHLOROthiazide 25 MG TAB 50 MG PO (07:57)
[2021-09-28] MEDS: Insulin Aspart 300 UNITS/3 ML PEN SC ×3 (07:58→16:56)
[2021-09-28] MEDS: Insulin Glargine 300 UNITS/3 ML PEN 30 UNITS SC (07:58)
[2021-09-28] MEDS: Fluticasone NASAL SPRAY 16 GM BTL NS (08:23)
[2021-09-28] MEDS: Magnesium Oxide 400 MG TAB 800 MG PO (09:55)
--- NOTE | 2021-09-28 10:38 | W.PM.PROGNOT ---
Date of Service Date of service: 09/28/21 Time of Service: 10:39 Assessment and Plan Assessment and plan (1) Bacteremia: Status: Acute Assessment and plan: blood cultures positive for gram +, ID and sensitivities pending. vancomycin added. echo for Thursday. will recheck blood cultures in am. (2) Community acquired pneumonia: Status: Acute Assessment and plan: Left lower lobe infiltrate by CT scan. Consistent with his presentation of shortness of breath and cough. Will continue ceftriaxone and doxycycline day 2 Oxygen supplementation. (3) Hypoxemia: Status: Acute Assessment and plan: Pulmonary embolism has been ruled out. Likely on the basis of his underlying pneumonia. (4) Diabetes mellitus type 2: Status: Chronic Assessment and plan: Blood sugar is running high. We will continue his usual Lantus. continue diabetic diet, sliding scale ac/hs (5) Obstructive sleep apnea syndrome: Status: Chronic Assessment and plan: He wears nocturnal CPAP. We will see if he can bring in his home device.. (6) Discharge planning issues: Status: Acute Assessment and plan: He does not want aggressive resuscitative measures if indeed his condition deteriorates where he cannot likely to survive. case management following discussed with Dr Duke Subjective Subjective Patient reports: fever (max temp overnight 38.9, blood cultures positive) Exam Const General: cooperative and no acute distress Nutritional Appearance: obese Orientation: alert, awake and oriented x3 HENMT Head: normal to inspection and normocephalic Chest Chest: normal inspection of the chest Resp Effort & Inspection: normal respiratory effort Auscultation: rhonchi left lower and no wheezes Cardio Rate: regular rate Rhythm: regular rhythm GI Inspection: distended and obesity Palpation: soft Auscultation: normal bowel sounds Skin General skin exam: no rashes or lesions noted Extrem General: normal to inspection, full ROM and edema Laterality: bilateral Objective Last Vital Signs Temp 37 C 09/28/21 08:28 Pulse 88 09/28/21 08:28 Resp 18 09/28/21 08:28 BP 131/45 L 09/28/21 08:28 Pulse Ox 95 09/28/21 08:28 Laboratory Results - last 24 hr 09/27/21 09/27/21 09/27/21 11:08 11:10 11:10 WBC RBC Hgb Hct MCV MCH MCHC RDW Plt Count MPV Immature Gran % Neutrophils % Lymphocytes % Monocytes % Eosinophils % Basophils % Nucleated RBC % Absolute Neutrophils Absolute Lymphocytes Absolute Monocytes Absolute Eosinophils Absolute Basophils RBC Morphology PT INR APTT D-Dimer 830 H VBG pH VBG pCO2 VBG pO2 VBG HCO3 VBG Total CO2 VBG O2 Saturation VBG Base Excess VBG Lactate Sodium Potassium Chloride Carbon Dioxide Anion Gap BUN Creatinine Estimated GFR/1.73 m2 Glucose Hemoglobin A1c Calcium Magnesium Total Bilirubin AST ALT Alkaline Phosphatase Ammonia 10 L Troponin I NT-Pro-B Natriuret Pep Total Protein Albumin Urine Color Urine Clarity Urine pH Ur Specific [place] Urine Protein Urine Ketones Urine Blood Urine Nitrite Urine Bilirubin Urine Urobilinogen Ur Leukocyte Esterase Urine Glucose COVID-19 Source NASOPHARYX SARS-CoV-2 (PCR) Negative 09/27/21 09/27/21 09/27/21 11:10 11:10 11:10 WBC RBC Hgb Hct MCV MCH MCHC RDW Plt Count MPV Immature Gran % Neutrophils % Lymphocytes % Monocytes % Eosinophils % Basophils % Nucleated RBC % Absolute Neutrophils Absolute Lymphocytes Absolute Monocytes Absolute Eosinophils Absolute Basophils RBC Morphology PT INR APTT D-Dimer VBG pH 7.36 VBG pCO2 47 VBG pO2 26 VBG HCO3 26 VBG Total CO2 24 VBG O2 Saturation 47 VBG Base Excess 1 VBG Lactate 2.3 H* Sodium 140 Potassium 5.0 Chloride 104 Carbon Dioxide 27.9 Anion Gap 8.1 BUN 47 H Creatinine 1.7 H Estimated GFR/1.73 m2 39.18 Glucose 215 H Hemoglobin A1c Calcium 9.3 Magnesium Total Bilirubin 0.9 AST 62 H ALT 84 H Alkaline Phosphatase 108 Ammonia Troponin I < 0.05 NT-Pro-B Natriuret Pep 334 H Total Protein 7.5 Albumin 4.1 Urine Color Urine Clarity Urine pH Ur Specific [place] Urine Protein Urine Ketones Urine Blood Urine Nitrite Urine Bilirubin Urine Urobilinogen Ur Leukocyte Esterase Urine Glucose COVID-19 Source SARS-CoV-2 (PCR) 09/27/21 09/27/21 09/27/21 11:10 11:10 12:33 WBC 12.52 H RBC 5.25 Hgb 15.3 Hct 47.0 MCV 89.5 MCH 29.1 MCHC 32.6 RDW 15.3 H Plt Count 122 L MPV 10.0 Immature Gran % 0.6 Neutrophils % 92.2 Lymphocytes % 1.7 Monocytes % 5.1 Eosinophils % 0.1 Basophils % 0.3 Nucleated RBC % 0 Absolute Neutrophils 11.54 H Absolute Lymphocytes 0.21 L Absolute Monocytes 0.64 Absolute Eosinophils 0.01 Absolute Basophils 0.04 RBC Morphology PT 11.6 H INR 1.2 H APTT 26.7 D-Dimer VBG pH VBG pCO2 VBG pO2 VBG HCO3 VBG Total CO2 VBG O2 Saturation VBG Base Excess VBG Lactate Sodium Potassium Chloride Carbon Dioxide Anion Gap BUN Creatinine Estimated GFR/1.73 m2 Glucose Hemoglobin A1c Calcium Magnesium Total Bilirubin AST ALT Alkaline Phosphatase Ammonia Troponin I NT-Pro-B Natriuret Pep Total Protein Albumin Urine Color Yellow Urine Clarity Clear Urine pH 5.5 Ur Specific [place] 1.015 Urine Protein Negative Urine Ketones Negative Urine Blood Negative Urine Nitrite Negative Urine Bilirubin Negative Urine Urobilinogen 0.2 Ur Leukocyte Esterase Negative Urine Glucose 500 H COVID-19 Source SARS-CoV-2 (PCR) 09/27/21 09/28/21 09/28/21 14:13 06:30 06:30 WBC RBC Hgb Hct MCV MCH MCHC RDW Plt Count MPV Immature Gran % Neutrophils % Lymphocytes % Monocytes % Eosinophils % Basophils % Nucleated RBC % Absolute Neutrophils Absolute Lymphocytes Absolute Monocytes Absolute Eosinophils Absolute Basophils RBC Morphology PT INR APTT D-Dimer VBG pH VBG pCO2 VBG pO2 VBG HCO3 VBG Total CO2 VBG O2 Saturation VBG Base Excess VBG Lactate Sodium 137 Potassium 4.6 Chloride 102 Carbon Dioxide 25.2 Anion Gap 9.8 BUN 50 H Creatinine 1.9 H Estimated GFR/1.73 m2 34.46 Glucose 207 H Hemoglobin A1c 7.2 H Calcium 8.9 Magnesium 1.9 Total Bilirubin AST ALT Alkaline Phosphatase Ammonia Troponin I < 0.05 NT-Pro-B Natriuret Pep Total Protein Albumin Urine Color Urine Clarity Urine pH Ur Specific [place] Urine Protein Urine Ketones Urine Blood Urine Nitrite Urine Bilirubin Urine Urobilinogen Ur Leukocyte Esterase Urine Glucose COVID-19 Source SARS-CoV-2 (PCR) 09/28/21 06:30 WBC 9.66 RBC 4.93 Hgb 14.0 Hct 44.1 MCV 89.5 MCH 28.4 MCHC 31.7 L RDW 15.9 H Plt Count 93 L MPV 10.3 Immature Gran % 0.4 Neutrophils % 87.7 Lymphocytes % 3.5 Monocytes % 8.1 Eosinophils % 0.0 Basophils % 0.3 Nucleated RBC % 0 Absolute Neutrophils 8.47 H Absolute Lymphocytes 0.34 L Absolute Monocytes 0.78 Absolute Eosinophils 0.00 Absolute Basophils 0.03 RBC Morphology Normal PT INR APTT D-Dimer VBG pH VBG pCO2 VBG pO2 VBG HCO3 VBG Total CO2 VBG O2 Saturation VBG Base Excess VBG Lactate Sodium Potassium Chloride Carbon Dioxide Anion Gap BUN Creatinine Estimated GFR/1.73 m2 Glucose Hemoglobin A1c Calcium Magnesium Total Bilirubin AST ALT Alkaline Phosphatase Ammonia Troponin I NT-Pro-B Natriuret Pep Total Protein Albumin Urine Color Urine Clarity Urine pH Ur Specific [place] Urine Protein Urine Ketones Urine Blood Urine Nitrite Urine Bilirubin Urine Urobilinogen Ur Leukocyte Esterase Urine Glucose COVID-19 Source SARS-CoV-2 (PCR) PAWSS Pt Consumed Any Amount of Alcohol Within the Last 30 days OR had positive GABRIELE Upon Admission: No
[2021-09-28] MEDS: cefTRIAXone 2 GM/50 ML BAG IVPB (13:15)
[2021-09-28] MEDS: Acetaminophen 325 MG TAB PO (16:08)
[2021-09-28] MEDS: Normal Saline 500 ML 100 ML IV (16:09)
[2021-09-28] MEDS: Gabapentin 300 MG CAP 900 MG PO (19:55)
[2021-09-28] MEDS: Magnesium Oxide 400 MG TAB PO (21:36)
[2021-09-29] VITALS (8 sets, daily range): BP systolic 101–143; BP diastolic 51–78; PULSE 71–76; RESP 8–20; TEMP 36.4–37.4; O2SAT 94–98
[2021-09-29] MEDS: Normal Saline Flush 10 ML SYR IVP (03:26)
[2021-09-29] MEDS: DOXYCYCLINE 100 MG in Normal Saline 100 ML IVPB ×2 (03:26→15:39)
--- NOTE | 2021-09-29 05:33 | NUR.NOTE ---
Nursing Note: At 05:30 am, RN's from nursing station heard loud noise from room 211 , They found patient on kneeling position, unwitnessed fall. Upon investigation patient stated that he was trying to looked for his cane which he found it near his bed. He landed on his buttocks but he just rolled over that's why he was on kneeling position.Denied of pain and no physical injuries noted. Neuro checks performed and within normal limit. AO x 4. Stays in recliner with alarm in progress. Instructed patient to call staff for any needs. Continue to monitor.
[2021-09-29] MEDS: Albuterol/Ipratropium 3 ML UPD VIAL UPD (05:57)
[2021-09-29 07:31] LABS: Abs Immature Grans 0.04 10^3/uL (0.0-0.06); Absolute Basophil Count 0.03 10^3/uL (0.0-0.2); Absolute Eosinophil Count 0.13 10^3/uL (0.0-0.7); Absolute Lymphocyte Count 0.43 10^3/uL (1.2-3.4); Absolute Monocyte Count 0.71 10^3/uL (0.1-0.8); Basophils % 0.4; Eosinophils % 1.8; HCT 39.7 % (40.0-50.0); HGB 12.8 g/dL (13.5-17.5); Immature Grans % 0.5; Lymphocytes % 5.9; MCH 28.7 pg (27.0-33.0); MCHC 32.2 % (32.0-36.0); MPV 9.8 fL (8.0-11.0); Monocytes % 9.7; Neutrophils % 81.7; Nucleated RBC 0 %; Platelet Count 105 10^3/uL (130-400); RBC 4.46 10^6/uL (4.36-5.78); RDW 15.6 % (11.8-14.1); RDW-SD 51.3 fL; WBC 7.34 10^3/uL (4.4-10.8)
[2021-09-29] MEDS: Insulin Aspart 300 UNITS/3 ML PEN SC ×3 (07:37→16:35)
[2021-09-29] MEDS: Fluticasone NASAL SPRAY 16 GM BTL NS (07:37)
[2021-09-29] MEDS: Losartan 50 MG TAB 100 MG PO (07:38)
[2021-09-29] MEDS: Insulin Glargine 300 UNITS/3 ML PEN 30 UNITS SC (07:38)
[2021-09-29] MEDS: Carvedilol 25 MG TAB PO ×2 (07:39→19:42)
[2021-09-29] MEDS: Aspirin E.C. 81 MG TABEC PO ×2 (07:39→19:42)
[2021-09-29] MEDS: hydroCHLOROthiazide 25 MG TAB 50 MG PO (07:39)
[2021-09-29] MEDS: Docusate Sodium 100 MG CAP PO ×2 (07:39→19:43)
[2021-09-29] MEDS: Gabapentin 300 MG CAP 600 MG PO (07:39)
[2021-09-29 07:42] LABS: Anion Gap 10.8 mmol/L (3-11); BUN 74 mg/dL (7-18); CO2 23.2 mmol/L (21.0-32.0); CREATININE 2.2 mg/dL (0.70-1.30); Calcium 8.6 mg/dL (8.5-10.1); Chloride 101 mmol/L (98-107); Estimated GFR 29.09 (mL/min/1.73m2); Glucose 172 mg/dL (74-106); Magnesium 2.1 mg/dL (1.8-2.4); Potassium 4.2 mmol/L (3.5-5.1); Sodium 135 mmol/L (136-145)
--- NOTE | 2021-09-29 09:50 | DI.RAD_ITS ---
Exam(s) XR KNEE RT 3V AP,LAT,ANTON EXAM: XR KNEE RT 3V AP,LAT,ANTON CLINICAL HISTORY: R knee pain. TECHNIQUE: 2D digital imaging was performed. COMPARISON: CR XR KNEE RT 1V from 01/31/2021 FINDINGS: There is prominent soft tissue swelling anterior to the patella and patellar ligament. There is also vague appearance of the quadriceps tendon and there does appear to be a joint effusion. There is no evidence of fracture of the patella. Position alignment of the components of the prosthesis are satisfactory. No fracture or loosening ev ident. IMPRESSION: Prominent soft tissue swelling anteriorly and at the quadriceps level. Probable significant soft tis rigo injury. Prosthesis appears intact. First read by [facility]. Final report called by myself to hospitalist nurse-practitioner Gracie brady 09/29/2021 2:52 p.m. DATA REPOSITORY: RADIATION DOSE DELIVERED:
--- NOTE | 2021-09-29 09:53 | W.PM.PROGNOT ---
Date of Service Date of service: 09/29/21 Time of Service: 09:53 Assessment and Plan Assessment and plan (1) Bacteremia: Status: Acute Assessment and plan: blood cultures positive for group c strep, vanco d/c continue ceftriaxone 2 gm daily for 2 weeks blood cultures pending for today echo for Thursday. (2) Community acquired pneumonia: Status: Acute Assessment and plan: Left lower lobe infiltrate by CT scan. Consistent with his presentation of shortness of breath and cough. Will continue ceftriaxone and doxycycline day 3/5 Oxygen supplementation. wean as able. . (3) Acute on chronic renal failure: Status: Acute Assessment and plan: hold hydrochlorothiazide. give 1 liter of fluid renal dosing and monitor closely (4) Diabetes mellitus type 2: Status: Chronic Assessment and plan: Blood sugar is running high. We will continue his usual Lantus. continue diabetic diet, sliding scale ac/hs (5) Obstructive sleep apnea syndrome: Status: Chronic Assessment and plan: He wears nocturnal CPAP. We will see if he can bring in his home device.. (6) Discharge planning issues: Status: Acute Assessment and plan: He does not want aggressive resuscitative measures if indeed his condition deteriorates where he cannot likely to survive. case management following discussed with Dr Duke Subjective Subjective Patient reports: fever (max temp 38.2 last evening, no further temps) Exam Const General: cooperative and no acute distress Nutritional Appearance: obese Orientation: alert, awake and oriented x3 HENMT Head: normal to inspection and normocephalic Chest Chest: normal inspection of the chest Resp Effort & Inspection: normal respiratory effort Auscultation: rhonchi left lower and no wheezes Cardio Rate: regular rate Rhythm: regular rhythm GI Inspection: distended and obesity Palpation: soft Auscultation: normal bowel sounds Skin General skin exam: no rashes or lesions noted Extrem General: normal to inspection, full ROM and edema Laterality: bilateral Objective Last Vital Signs Temp 37.2 C 09/29/21 05:32 Pulse 76 09/29/21 05:57 Resp 20 09/29/21 05:57 BP 110/66 09/29/21 05:32 Pulse Ox 95 09/29/21 08:24 Laboratory Results - last 24 hr 09/29/21 09/29/21 09/29/21 05:35 06:26 06:40 WBC 7.34 RBC 4.46 Hgb 12.8 L Hct 39.7 L MCV 89.0 MCH 28.7 MCHC 32.2 RDW 15.6 H Plt Count 105 L MPV 9.8 Immature Gran % 0.5 Neutrophils % 81.7 Lymphocytes % 5.9 Monocytes % 9.7 Eosinophils % 1.8 Basophils % 0.4 Nucleated RBC % 0 Absolute Neutrophils 6.00 Absolute Lymphocytes 0.43 L Absolute Monocytes 0.71 Absolute Eosinophils 0.13 Absolute Basophils 0.03 Sodium Cancelled 135 L Potassium Cancelled 4.2 Chloride Cancelled 101 Carbon Dioxide Cancelled 23.2 Anion Gap Cancelled 10.8 BUN Cancelled 74 H D Creatinine Cancelled 2.2 H Estimated GFR/1.73 m2 Cancelled 29.09 Glucose Cancelled 172 H Calcium Cancelled 8.6 Magnesium 2.1 C-Reactive Protein 16.80 H PAWSS Pt Consumed Any Amount of Alcohol Within the Last 30 days OR had positive GABRIELE Upon Admission: No
--- NOTE | 2021-09-29 10:09 | DI.VRAD_ITS ---
PROCEDURE INFORMATION: Exam: XR Right Knee Exam date and time: 09/29/2021 6:28 AM Age: 76 years old Clinical indication: Pain; Knee; Right; Prior surgery; Surgery date: 6+ months TECHNIQUE: Imaging protocol: XR Right knee. Views: 3 views. COMPARISON: CR XR KNEE RT 1V 01/31/2021 9:31 AM FINDINGS: Tubes, catheters and devices: Orthopedic hardware appears intact without evidence of acute complication. Bones/joints: No acute fracture or dislocation. Soft tissues: Unremarkable soft tissues. Vasculature: Vascular calcifications. IMPRESSION: No acute findings. Dictated and Authenticated by: Patrice Mayfield MD. Ordering:SALLIE Mazariegos MD
[2021-09-29] MEDS: Normal Saline 1,000 ML 100 ML IV (10:26)
[2021-09-29] MEDS: guaiFENesin 600 MG TABCR PO ×2 (10:27→19:42)
[2021-09-29] MEDS: Magnesium Oxide 400 MG TAB 800 MG PO (10:27)
[2021-09-29] MEDS: Lachydrin 12% LOTION 225 GM BTL TP ×2 (10:27→19:41)
[2021-09-29] MEDS: cefTRIAXone 2 GM/50 ML BAG IVPB (13:49)
[2021-09-29] MEDS: Enoxaparin 40 MG/0.4 ML SYR SC (15:38)
[2021-09-29] MEDS: Nystatin POWDER 15 GM JAR TP (19:41)
[2021-09-29] MEDS: Gabapentin 300 MG CAP 900 MG PO (19:42)
[2021-09-29] MEDS: Magnesium Oxide 400 MG TAB PO (21:49)
[2021-09-30] VITALS (7 sets, daily range): BP systolic 104–130; BP diastolic 52–67; PULSE 70–75; RESP 1–20; TEMP 36.6–37.2; O2SAT 92–96
[2021-09-30] MEDS: DOXYCYCLINE 100 MG in Normal Saline 100 ML IVPB ×2 (03:40→16:14)
[2021-09-30 06:59] LABS: Abs Immature Grans 0.03 10^3/uL (0.0-0.06); Absolute Basophil Count 0.02 10^3/uL (0.0-0.2); Absolute Eosinophil Count 0.22 10^3/uL (0.0-0.7); Absolute Lymphocyte Count 0.31 10^3/uL (1.2-3.4); Absolute Monocyte Count 0.64 10^3/uL (0.1-0.8); Absolute Neutrophil Count 4.42 10^3/uL (1.2-6.7); Basophils % 0.4; Eosinophils % 3.9; HCT 39.7 % (40.0-50.0); HGB 12.9 g/dL (13.5-17.5); Immature Grans % 0.5; Lymphocytes % 5.5; MCH 28.4 pg (27.0-33.0); MCHC 32.5 % (32.0-36.0); MCV 87.4 fL (80-95); MPV 10.1 fL (8.0-11.0); Monocytes % 11.3; Neutrophils % 78.4; Nucleated RBC 0 %; Platelet Count 115 10^3/uL (130-400); RBC 4.54 10^6/uL (4.36-5.78); RDW 15.4 % (11.8-14.1); RDW-SD 49.6 fL; WBC 5.64 10^3/uL (4.4-10.8)
[2021-09-30 07:39] LABS: BUN 69 mg/dL (7-18); CREATININE 1.8 mg/dL (0.70-1.30); Calcium 8.8 mg/dL (8.5-10.1); Chloride 103 mmol/L (98-107); Estimated GFR 36.67 (mL/min/1.73m2); Glucose 149 mg/dL (74-106); Potassium 4.4 mmol/L (3.5-5.1); Sodium 138 mmol/L (136-145)
[2021-09-30] MEDS: Losartan 50 MG TAB 100 MG PO (07:48)
[2021-09-30] MEDS: guaiFENesin 600 MG TABCR PO ×2 (07:48→19:39)
[2021-09-30] MEDS: Carvedilol 25 MG TAB PO ×2 (07:48→19:33)
[2021-09-30] MEDS: Docusate Sodium 100 MG CAP PO ×2 (07:48→19:33)
[2021-09-30] MEDS: Gabapentin 300 MG CAP 600 MG PO (07:49)
[2021-09-30] MEDS: Aspirin E.C. 81 MG TABEC PO ×2 (07:49→19:33)
[2021-09-30] MEDS: Normal Saline Flush 10 ML SYR IVP ×3 (07:51→16:15)
[2021-09-30] MEDS: Lachydrin 12% LOTION 225 GM BTL TP ×3 (07:51→19:40)
[2021-09-30] MEDS: Fluticasone NASAL SPRAY 16 GM BTL NS (07:52)
[2021-09-30] MEDS: Nystatin POWDER 15 GM JAR TP ×2 (07:52→19:40)
[2021-09-30] MEDS: Insulin Glargine 300 UNITS/3 ML PEN 30 UNITS SC (07:52)
[2021-09-30] MEDS: Insulin Aspart 300 UNITS/3 ML PEN SC ×3 (07:53→18:36)
--- NOTE | 2021-09-30 08:12 | PCNE_ITS ---
Date of service: 09/30/21 Time of Service: 08:12 History of Present Illness History of Present Illness Chief Complaint: SOB,hypoxia Narrative: From H and P: History of Present Illness Chief Complaint: Left lower lobe pneumonia/shortness of breath Narrative: 76-year-old man who presents with worsening shortness of breath over the last 3 days. He describes a dry cough and scratchy throat. He is unsure if he had a fever. steam hand found him with an O2 sat of 92% on room air. He was mildly confused. In the ED he maintained his sats with minimal O2 supplementation but when he took his oxygen off his sats fell to 85%. His D-dimer was elevated, a CT angiogram showed no evidence of pulmonary embolism. There was a slight left lower lobe infiltrate by CT scan. Covid negative/influenza negative. He is being admitted to [facility] for continued IV antibiotics and oxygen therapy. Interim Hx: I am meeting with Kurtis, his Jessica, his son-in-law Nasir. I was asked to do a palliative consult due to Kurtis's multiple comorbidities including COPD, hypertension, diabetes, morbid obesity. Also he has spoken to Denise Mathur NP that he does not want aggressive care if he cannot have a meaningful life. Please see her recent note. He is a full code at this time. I am here to discuss his CODE STATUS, what this means, and what his goals are. I met with him briefly in the morning and I am meeting with he and his family this evening. Kurtis has held many jobs most recently [employer]. He enjoys working on the older [employer] etc. He fully expects to go home and to continue his life without much change. He would want resuscitation if there was a chance for meaningful life, but does not want to be hooked up to machines for weeks to months. He does not know how often CPR works, especially with his comorbidities. He understands that talking with his family is important so that they can make decisions if he cannot. Both Jessica and Nasir asked questions. Nasir had recently executed an advanced directive and wanted Kurtis to be informed about his many choices. We did go through a COLST form. I explained the dif ferences between a DPOA, advanced directive and POLST forms. Consults Consult date: 09/30/21 Requesting physician: Denise Mathur Assessment and Plan Assessment and plan (1) Bacteremia: Status: Acute (2) Acute on chronic renal failure: Status: Acute (3) Cellulitis of leg, right: Status: Acute (4) Advance care planning: Status: Acute (5) Palliative care patient: Status: Acute Assessment and plan: Bacteremia?cellulitis of right leg?antibiotics recently increased and Vanco was added. Compression stockings may be helpful with the edema. Diabetes?certified breastfeeding educator meeting with him CODE STATUS?we spent a long time discussing the different aspects of CODE STATUS, what DNR means, how to be sure his wishes are carried out etc. Both Jessica and Nasir asked questions. We reviewed the COLST form and I gave them a copy of it. Kurtis wants an attempt to be made at CPR but does not want long- term intubation. He knows that he and his family need to discuss this further and they plan to do so. I did give him my card and offered to discuss this further if they wanted to complete a COLST form. He has multiple comorbidities and I do expect that over time these will significantly affect his life. I am happy to see him outpatient in the future. His Jessica knows how to get in contact with me. Thank you for this consult Review of Systems Narrative: Kurtis continues to be short of breath. He is not having any chest pain. He is able to get up and move on his own. He has less pain in his right leg and calf. He feels that the redness is better although he was also aware that the hospitalist was more concerned about this. He does expect to go home on Thursday. [facility] Medical History (Updated 09/30/21 @ 21:20 by Clarita Prince MD, [place]) Abnormal LFTs Secondary to fartty infiltrate of the liver. Arthritis CAD (coronary artery disease) Cellulitis RIGHT LOWER LEG Chronic lower back pain Diabetes Hearing loss History of seizures as a child Hx of myocardial infarction 10/2011 STRESS TEST COMPLETED 11/29/2019 Hyperlipidemia Hypertension Osteoarthritis Renal insufficiency Sleep apnea with use of continuous positive airway pressure (CPAP) Tubulovillous adenoma polyp of colon Noted by colonoscopy. 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 Wilson s/p debridement and poly exchange 02/10/20 History of total right knee replacement (01/16/21) Family History Maternal Aunt Colon cancer Maternal Aunt Colon cancer Father , 70s Heart disease Social History Smoking/Tobacco Use Status: Never Smoking risk assessment performed?: Yes Alcohol Intake: never Drug use: Never Substance use type: does not use Do you feel safe at home: Yes Do you feel safe in your relationship?: Yes Exam Narrative Exam Narrative: Kurtis was sitting in the chair this morning. His legs were propped up. This evening he was sitting on the side of the bed with his family in the room. Jessica, his and he were sitting close to each other when touched often. Morbidly obese, his heart was regular., Lungs diminished air movement no crackles no wheezes, abdomen nontender, right leg definitely larger than left leg, was soft, there is an anterior wound which has significant redness and venous stasis changes around it. Results Last Vital Signs Temp 97.9 F 09/30/21 02:59 Pulse 73 09/30/21 02:59 Resp 18 09/30/21 02:59 BP 110/67 09/30/21 02:59 Pulse Ox 96 09/30/21 02:59 Echo: Conclusion Normal left ventricular wall thickness and chamber size. Estimated ejection fraction is 55 to 60%. There are no segmental wall motion abnormalities Normal right ventricular size and systolic function Both atria are normal in size Aortic valve is trileaflet and sclerotic without stenosis or regurgitation Mild mitral annular calcification with trace regurgitation Normal tricuspid valve with trace regurgitation. Unable to estimate right ventricular systolic pressure Mildly to moderately dilated aortic root and ascending aorta Right leg US IMPRESSION: No evidence of deep venous thrombosis of the right lower extremity. Labs Result diagrams: 10/01/21 06:30 09/30/21 06:20 Labs: Laboratory Results - last 24 hr 09/30/21 09/30/21 06:20 06:20 WBC 5.64 RBC 4.54 Hgb 12.9 L Hct 39.7 L MCV 87.4 MCH 28.4 MCHC 32.5 RDW 15.4 H Plt Count 115 L MPV 10.1 Immature Gran % 0.5 Neutrophils % 78.4 Lymphocytes % 5.5 Monocytes % 11.3 Eosinophils % 3.9 Basophils % 0.4 Nucleated RBC % 0 Absolute Neutrophils 4.42 Absolute Lymphocytes 0.31 L Absolute Monocytes 0.64 Absolute Eosinophils 0.22 Absolute Basophils 0.02 Sodium 138 Potassium 4.4 Chloride 103 Carbon Dioxide 25.0 Anion Gap 10.0 BUN 69 H Creatinine 1.8 H Estimated GFR/1.73 m2 36.67 Glucose 149 H Calcium 8.8
--- NOTE | 2021-09-30 09:10 | CMPROGNOTE_ITS ---
- If Service Date Differs Date of service: 09/30/21 Time of Service: 09:10 Care Management Progress Note S/O: Kurtis was sitting up in his chair when CM met with him. He is anticipating being discharged home on Thursday with home IV antibiotics. He has used [facility] out of [place] in the past for home IV antibiotics and would like to use them again. CM sent [facility] the med info, his insurance info and demographics to find out about pricing and availability. CM will follow up in the morning. A: 76 year old male admitted to [facility] on 09/27/21 for CAP, Hypoxia P: Anticipate Kurtis will be discharged home with IV antibiotics when medically ready. SABA is working with [facility] for home IV ABX and will follow up with them tomorrow about pricing and delivery time frame to support his discharge. CM will need to fax [facility] the order when it's ready. He will need new [facility] RN/PT services. He will transport via private vehicle with family. CM will continue to support discharge planning needs.
[2021-09-30] MEDS: Magnesium Oxide 400 MG TAB 800 MG PO (10:04)
--- NOTE | 2021-09-30 10:21 | W.PM.PROGNOT ---
Date of Service Date of service: 09/30/21 Time of Service: Assessment and Plan Assessment and plan (1) Bacteremia: Status: Acute Assessment and plan: blood cultures positive for group c strep continue ceftriaxone 2 gm daily for 2 weeks repeat blood cultures negative echo today. (2) Hypertension: Status: Chronic Assessment and plan: blood pressure stable off HCTZ (on hold for HANNAH) continue to monitor. no new medications (3) Community acquired pneumonia: Status: Acute Assessment and plan: Left lower lobe infiltrate by CT scan. Consistent with his presentation of shortness of breath and cough. Will continue ceftriaxone and doxycycline day 03/04 Oxygen supplementation now at 1 liter. wean as able. (4) Acute on chronic renal failure: Status: Acute Assessment and plan: improved overnight with fluids. continue hold hydrochlorothiazide. renal dosing and monitor closely (5) Diabetes mellitus type 2: Status: Chronic Assessment and plan: Blood sugar is running high. We will continue his usual Lantus. continue diabetic diet, sliding scale ac/hs (6) Obstructive sleep apnea syndrome: Status: Chronic Assessment and plan: He wears nocturnal CPAP. We will see if he can bring in his home device.. (7) Discharge planning issues: Status: Acute Assessment and plan: He does not want aggressive resuscitative measures if indeed his condition deteriorates where he cannot likely to survive. case management following anticipate a discharge to home +/- home health services in 1-3 days will need 2 weeks of IV ceftriaxone. discussed with Dr Duke Subjective Subjective Patient reports: feels better, tolerating liquids well, tolerating a regular diet, voiding w/o difficulty and afebrile Exam Const General: cooperative and no acute distress Nutritional Appearance: obese Orientation: alert, awake and oriented x3 HENMT Head: normal to inspection and normocephalic Chest Chest: normal inspection of the chest Resp Effort & Inspection: normal respiratory effort Auscultation: rhonchi left lower and no wheezes Cardio Rate: regular rate Rhythm: regular rhythm GI Inspection: distended and obesity Palpation: soft Auscultation: normal bowel sounds Skin General skin exam: no rashes or lesions noted Extrem General: normal to inspection, full ROM and edema Laterality: bilateral Objective Last Vital Signs Temp 36.8 C 09/30/21 08:43 Pulse 70 09/30/21 08:43 Resp 18 09/30/21 08:43 BP 130/63 09/30/21 08:43 Pulse Ox 96 09/30/21 08:43 Laboratory Results - last 24 hr 09/30/21 09/30/21 06:20 06:20 WBC 5.64 RBC 4.54 Hgb 12.9 L Hct 39.7 L MCV 87.4 MCH 28.4 MCHC 32.5 RDW 15.4 H Plt Count 115 L MPV 10.1 Immature Gran % 0.5 Neutrophils % 78.4 Lymphocytes % 5.5 Monocytes % 11.3 Eosinophils % 3.9 Basophils % 0.4 Nucleated RBC % 0 Absolute Neutrophils 4.42 Absolute Lymphocytes 0.31 L Absolute Monocytes 0.64 Absolute Eosinophils 0.22 Absolute Basophils 0.02 Sodium 138 Potassium 4.4 Chloride 103 Carbon Dioxide 25.0 Anion Gap 10.0 BUN 69 H Creatinine 1.8 H Estimated GFR/1.73 m2 36.67 Glucose 149 H Calcium 8.8 PAWSS Pt Consumed Any Amount of Alcohol Within the Last 30 days OR had positive GABRIELE Upon Admission: No
--- NOTE | 2021-09-30 10:34 | DI.US_ITS ---
APPROVED REPORT EXAM: Comprehensive 2D, Doppler, and color-flow Echocardiogram Patient Location: In-Patient Room/Bed: 211 Product Support Sales Representative: Jaz Rutledge RDCS (AE) Indications: GPC Bacteremia, r/o Endocarditis Other Information Study Quality: Fair. Technically limited study due to body habitus. Conclusion Normal left ventricular wall thickness and chamber size. Estimated ejection fraction is 55 to 60%. There are no segmental wall motion abnormalities Normal right ventricular size and systolic function Both atria are normal in size Aortic valve is trileaflet and sclerotic without stenosis or regurgitation Mild mitral annular calcification with trace regurgitation Normal tricuspid valve with trace regurgitation. Unable to estimate right ventricular systolic press ure Mildly to moderately dilated aortic root and ascending aorta Wall motion Left Ventricle The left ventricle is normal size. The left ventricular systolic function is normal. The left ventric ular ejection fraction is within the normal range. There is normal left ventricular wall thickness. T here is normal LV segmental wall motion. There is no ventricular septal defect visualized. LVEF is 55 -60%. Right Ventricle The right ventricle is normal size. The right ventricular systolic function is normal. Atria The left atrium size is normal. The right atrium size is normal. The interatrial septum is intact wit h no evidence for an atrial septal defect. Aortic Valve The Aortic valve is sclerotic. Aortic valve is trileaflet. There is no aortic valvular stenosis. No a ortic regurgitation is present. Mitral Valve Mild mitral annular calcification. No evidence of mitral valve stenosis. Trace mitral regurgitation. Tricuspid Valve The tricuspid valve is normal in structure. There is no tricuspid valve stenosis. Trace tricuspid reg urgitation. Unable to assess PA pressure. Pulmonic Valve The pulmonary valve is normal in structure. There is no pulmonic valvular stenosis. Mild pulmonic reg urgitation. Great Vessels Aortic root is dilated. The ascending aorta is moderately dilated. Aortic arch is not well visualized . The IVC collapses <50% with inspiration. Pericardium There is no pericardial effusion. 2D Dimensions IVSD d PLAX 1.17 cm M: 0.6-1.2 LV Vol A2C d MOD 233.4 mL LVPW d PLAX 1.13 cm M: 0.6 - 1.2 LV Vol A4C d MOD 169.3 mL LVID d PLAX 5.04 cm M: 4.2 - 5.8 LA vol/ BSA A2C s A-L 38.5 mL/m2 LVDs 3.55 cm M: 2.5 - 4.0 LA vol/ BSA A4C s A-L 34.2 mL/m2 Ao Root d 3.97 cm M: 3.1 - 3.7 LA Vol/ BSA Biplane s A-L 37.1 mL/m2 RA Area A4C 19.08 cm2 LA Area A4C s MOD 25.38 cm2 RA Vol/ BSA A4C s A-L 25.0 mL/m2 LA Area A2C s MOD 26.35 cm2 Ao Asc Diam d 4.03 cm M: 2.6 - 3.4 LV EF A4C MOD 55.8 % LV EF Teichholz 56.3 % LV EF A2C MOD 56.4 % LVEF (Ornelas's) 55.01 % M: 52 - 72 LV EF Biplane MOD 55.0 % LV Volume 142.81 mL M: 62 - 150 SV 110.62 mL LV Volume Index 60.00 mL/m2 M: 34 - 74 SV Index 46.49 mL/m2 LV Vol Biplane MOD 201.1 mL FS 29.55 % M-Mode TAPSE 2.28 cm (M/F) >1.7 LV Diastology MV E' medial 0.077 (>0.07 m/s) E/A Ratio 1.2 LV E/e MED 11.70 (<14) MV E Vmax 0.90 (0.4-1.3 m/s) MV E' lateral 0.081 (>0.1 m/s) MV A Vmax 0.75 (0.4-1.3 m/s) LV E/e LAT 11.20 (<14) MV E/A Ratio 1.20 MV E/E' medial 11.75 MV E/E' lateral 11.21 Aortic Valve LVOT Area 3.73 cm2 AoV Area Vmax 2.96 cm2 LVOT Vmax 0.92 m/s AoV Area/ BSA (Vmax) 1.24 cm2/m2 LVOT Mean Brian. 0.60 m/s MORRO Mean Brian. 2.46 cm2 LVOT Peak Grad 3.4 mmHg MORRO Mean Brian. Index 1.03 cm2/m2 LVOT Mean Grad 1.7 mmHg LVOT VTI 0.196 m LVOT Diam s 2.15 cm AoV Vmax 1.16 m/s Velocity Ratio 0.79 AoV Mean Brian. 0.91 m/s AoV Peak Grad 5.4 mmHg LVOT SV 72.92 mL AoV Mean Grad 3.5 mmHg AoV VTI 0.252 m AoV Area VTI 2.90 cm2 AoV Area/ BSA (VTI) 1.22 cm/m2 Mitral Valve MV DT 202 (160-240 msec) MV PHT 59 msec MV Area PHT 3.76 cm2 MV VTI 0.248 m MV Area VTI 2.94 (4.0-6.0 cm2) Pulmonary Valve PV Vmax 0.79 (0.5-1.5 m/s) RVOT Peak Gr. 1.06 mmHg PV Peak Grad 2.5 mmHg RVOT Mean Gr. 0.50 mmHg PV Mean Grad 1.4 mmHg RVOT VTI 0.088 m PV VTI 0.164 m RVOT Vmax 0.51 m/s
[2021-09-30] MEDS: Albuterol/Ipratropium 3 ML UPD VIAL UPD ×3 (13:15→23:43)
[2021-09-30] MEDS: cefTRIAXone 2 GM/50 ML BAG IVPB (13:22)
[2021-09-30] MEDS: Normal Saline 500 ML 30 ML IV (13:23)
[2021-09-30] MEDS: Enoxaparin 40 MG/0.4 ML SYR SC (15:40)
[2021-09-30] MEDS: VANCOMYCIN/WATER (PEG) 1.25 GM/250 ML BAG IV (17:35)
[2021-09-30] MEDS: Gabapentin 300 MG CAP 900 MG PO (19:39)
[2021-09-30] MEDS: Magnesium Oxide 400 MG TAB PO (21:08)
[2021-10-01] VITALS (10 sets, daily range): BP systolic 98–131; BP diastolic 56–65; PULSE 65–73; RESP 4–20; TEMP 36.3–37.2; O2SAT 93–97
[2021-10-01] MEDS: DOXYCYCLINE 100 MG in Normal Saline 100 ML IVPB ×2 (04:37→15:24)
[2021-10-01] MEDS: Albuterol/Ipratropium 3 ML UPD VIAL UPD ×4 (05:59→23:43)
[2021-10-01 07:03] LABS: ESR 28 mm/hr (0-20)
[2021-10-01 07:05] LABS: Abs Immature Grans 0.04 10^3/uL (0.0-0.06); Absolute Basophil Count 0.04 10^3/uL (0.0-0.2); Absolute Lymphocyte Count 0.34 10^3/uL (1.2-3.4); Absolute Monocyte Count 0.63 10^3/uL (0.1-0.8); Basophils % 0.8; HCT 39.3 % (40.0-50.0); HGB 12.7 g/dL (13.5-17.5); Immature Grans % 0.8; Lymphocytes % 6.7; MCH 28.2 pg (27.0-33.0); MCHC 32.3 % (32.0-36.0); MCV 87.1 fL (80-95); MPV 10.1 fL (8.0-11.0); Monocytes % 12.5; Neutrophils % 75.2; Nucleated RBC 0 %; Platelet Count 127 10^3/uL (130-400); RBC 4.51 10^6/uL (4.36-5.78); RDW 15.1 % (11.8-14.1); RDW-SD 48.2 fL; WBC 5.05 10^3/uL (4.4-10.8)
[2021-10-01 07:29] LABS: AST 74 U/L (15-37); Albumin 3.1 g/dL (3.4-5.0); Alkaline Phosphatase 88 U/L (46-116); Anion Gap 11.6 mmol/L (3-11); BUN 65 mg/dL (7-18); Bilirubin, Total 0.6 mg/dL (0.2-1.0); CO2 22.4 mmol/L (21.0-32.0); CREATININE 1.7 mg/dL (0.70-1.30); Calcium 8.9 mg/dL (8.5-10.1); Chloride 104 mmol/L (98-107); Estimated GFR 39.18 (mL/min/1.73m2); Glucose 156 mg/dL (74-106); Potassium 4.4 mmol/L (3.5-5.1); Sodium 138 mmol/L (136-145); Total Protein 6.7 g/dL (6.4-8.2)
[2021-10-01 07:46] LABS: ALT 81 U/L (16-63)
[2021-10-01] MEDS: guaiFENesin 600 MG TABCR PO ×2 (07:55→19:35)
[2021-10-01] MEDS: Losartan 50 MG TAB 100 MG PO (07:56)
[2021-10-01] MEDS: Gabapentin 300 MG CAP 600 MG PO (07:58)
[2021-10-01] MEDS: Aspirin E.C. 81 MG TABEC PO ×2 (07:58→19:35)
[2021-10-01] MEDS: Carvedilol 25 MG TAB PO ×2 (07:59→19:35)
[2021-10-01] MEDS: Fluticasone NASAL SPRAY 16 GM BTL NS (08:00)
[2021-10-01] MEDS: Normal Saline Flush 10 ML SYR IVP ×2 (08:01→13:31)
[2021-10-01 08:03] LABS: C-Reactive Protein 9.47 mg/dL (0.0-0.3)
[2021-10-01] MEDS: Insulin Glargine 300 UNITS/3 ML PEN 30 UNITS SC (08:04)
[2021-10-01] MEDS: Insulin Aspart 300 UNITS/3 ML PEN SC ×3 (08:05→16:44)
--- NOTE | 2021-10-01 10:27 | PT.INIE ---
Date of service: 10/01/21 Time of Service: 10:27 PT Notes Visit Reasons: CAP,Hypoxia Physical Therapy Inpatient Initial Evaluation Date: 10/01/2021 Referring Doctor: Denise Purvis NP PT Orders: PT CONSULT: Eval/Treat Precautions: Fall. Standard. Activity as tolerated. KLAWOCK. Patient Profile/Admitting Diagnosis: Kurtis Marie is a 76-year-old male who presented to the ED on 09/27/2021 with dry cough with scratchy throat, shortness of breath, and slight altered mental status. Patient is diagnosed with query acquired pneumonia, bacteremia, acute on chronic renal failure, cellulitis bilateral legs, obstructive sleep apnea, and diabetes mellitus. PMHX: Medical History Abnormal LFTs Secondary to fartty infiltrate of the liver. Arthritis CAD (coronary artery disease) Cellulitis RIGHT LOWER LEG Chronic lower back pain Diabetes Hearing loss History of seizures as a child Hx of myocardial infarction 10/2011 STRESS TEST COMPLETED 11/29/2019 Hyperlipidemia Hypertension Osteoarthritis Renal insufficiency Sleep apnea with use of continuous positive airway pressure (CPAP) Tubulovillous adenoma polyp of colon Noted by colonoscopy. 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 Wilson s/p debridement and poly exchange 02/10/20 History of total right knee replacement (01/16/21) Social History/Home Situation: Lives with in a private home with a ramp to enter. will be his primary support. 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 Independent with SPC at baseline. Equipment Owned/DME: Has axillary cruthces, FWW, and SPC Subjective: Agreeable to PT consult. Reports 2-3/10 pain in the right knee with walking. States that he has fallen three to four times in the past year with the most recent fall happening 3-4 weeks ago with his R knee hitting the floor first. Denies headache, chest pain, and dizziness throughout session. States that his CPAP machine has been broken since last week of July and he only has the machine scheduled for replacement this past August. He feels that this has a huge thing to do with how he is right now. Reports that OP PT has recommended use of braces to support both his ankles due to limited dorsiflexion. Objective: General Observation: Patient was seen walking with TRANSMISSION SYSTEM OPERATOR Carla from the shower area back to his room about retirement and this PT took over to walk him to room 211. Some antalgia seen in the R LE with patient reporting 2-3/10 pain with the walking. Swelling and discoloration seen in B legs with R leg more affected than the L. Mental Status: Alert and oriented x4. Responds appropriately. Pain: 3/10 pain in the knee with weight bearing ROM: Right Upper Extremity: Shoulder Flexion WFL. Shoulder abduction WFL. Elbow flexion WFL. Wrist flexion WFL. Opening and closing of hand WFL. Left Upper Extremity: Shoulder Flexion WFL. Shoulder abduction WFL. Elbow flexion WFL. Wrist flexion WFL. Opening and closing of hand WFL. Right Lower Extremity: Hip flexion lacks 50% of motion. Hip abduction WFL. Knee flexion 30 degrees to 100 degrees. Knee extension -30 degrees. Ankle dorsiflexion 10 degrees from floor. Ankle plantarflexion WFL. Left Lower Extremity: Hip flexion WFL. Hip abduction WFL. Knee flexion 5 degrees to 110 degrees. Knee extension -5 degrees. Ankle dorsiflexion 10 degrees from floor. Ankle plantarflexion WFL. Strength: Right Upper Extremity: Shoulder flexors 5/5. Shoulder abductors 5/5. Elbow flexors 5/5. Elbow extensors 5/5. Process Consultant strong. Left Upper Extremity: Shoulder flexors 5/5. Shoulder abductors 5/5. Elbow flexors 5/5. Elbow extensors 5/5. Process Consultant strong. Right Lower Extremity: Hip flexors 3-/5. Hip abductors 4-/5. Knee flexors 3-/5. Knee extensors 3-/5. Ankle dorsiflexors 2-/5. Ankle plantarflexors 4-/5. Left Lower Extremity: Hip flexors 5/5. Hip abductors 5/5. Knee flexors 3-/5. Knee extensors 3-/5. Ankle dorsiflexors 2-/5. Ankle plantarflexors 4-/5. Sensation: Intact as to pain and pressure on bilateral lower extremities. Bed Mobility/Transfers: Sit to stand standby assist Stand to sit standby assist Bed to chair standby assist Chair to bed standby assist Gait: Guided patient through level surface ambulation of 150 feet with TRANSMISSION SYSTEM OPERATOR Carla from room to the shower and about 100 feet back. APtient walked with PT about 50 feet the [address] of the way using front wheeled walker with WBAT on B LE requiring only stand by assist with step-through gait pattern and decreased bell. Reported 2-3/10 pain in the right knee that subsided with rest. Decreased dorsiflexion in B sides. Balance: Static Sitting: Normal Dynamic Sitting: Normal Static Standing: Fair Dynamic Standing: Fair Special Tests: Mobility Limitations Standardized Measure [facility] AM-PAC 6 clicks Basic Mobility Inpatient Short Form: Raw Score: 22 CMS Score: 21% deficit Informed Consent/Education: Patient instructed in purpose of PT consult and plan of care. Assessment: Kurtis demonstrates functional mobility decline requiring the use of a front wheeled walker for all mobility ADL performance, impairment in balance, and increased risk for falls due to postoperative status. Patient presents with clinical signs and symptoms consistent with current/admitting diagnoses that have resulted to mobility limitations, gait instability, generalized weakness, and impairment of motor control as demonstrated by the following impairment level findings: 1. Decreased strength to right knee major muscle groups 2. Impaired standing balance 3. Impaired activity tolerance 4. Limitation of joint range of motion in right knee 5. Pain in R knee at 2-3/10 6. SWelling in B legs with R>>L Impairments are contributing to the following functional limitations: 1. Inability to safely ambulate without assistive device and physical assistance 2. Increase completion time for mobility ADL performance 3. Increased fall risk Patient is assessed as a 17809 moderate complexity based on the following: History: 76-year-old male with impairment level findings, functional limitations, and past medical history as indicated above Examination: Demonstrable impairment in strength, balance, and mobility level with underlying impairments and functional limitations as documented above Presentation:Evolving Decision Makin moderate complexity Goals: Goals X 1 day 1. Supine-Sit independent 2. Sit-Supine independent 3. Sit-Stand independent 4. Stand-Sit independent 5. Bed-Chair independent 6. Chair-Bed independent 7. Independent gait on level surface with use of SPC for at least 300 feet without report of pain nor dyspnea 8. Independent with home exercise program 9. Good static and dynamic standing balance/tolerance Plan of Care/Treatment Plan: 1-2x/day, for 1 day Plan of care has been reviewed with the SECURITY OPERATIONS MANAGER providing the service under Physical Therapy direction. Initiate Physical Therapy intervention for strengthening, bed mobility, transfers, gait, stairs, balance training, use of assistive device. DISCHARGE RECOMMENDATIONS: Home when medically cleared byhospitalist. PT for continued functional mobility progression. TREATMENT CODE/TIME: 47108 x 28 minutes beginning at 10:27 AM. Thank you for the opportunity to participate in the care of this patient. Nargis Bernabe PT, DPT, CLT [facility] [place], [place]
[2021-10-01] MEDS: Magnesium Oxide 400 MG TAB 800 MG PO (10:41)
[2021-10-01] MEDS: Lachydrin 12% LOTION 225 GM BTL TP ×3 (10:42→19:31)
[2021-10-01] MEDS: Nystatin POWDER 15 GM JAR TP ×2 (10:42→19:31)
--- NOTE | 2021-10-01 13:03 | W.NUTRFU ---
Date of service: 10/01/21 Time of Service: 13:03 Nutrition Note NOTE: 76yo male admitted with bacteremia, HTN, acute on chronic renal failure, DMII, CAP, cellulitis of R leg. Meds: baby aspirin, carvedilol, ceftriaxone, doxycycline, enoxaparin, fluticasone propionate, gabapentin, moderate protocol insulin aspart and 30 units glargine in AM, losartan, jardiance and prn docusate sodium, MOM, and Mylanta. BMI of 42.8kg/m2 c/w stage IV obesity. Wt change of ~4% noted while admitted (fluid changes most likely contributing) and pt verbalizes he?s actively trying to lose weight. Most recent A1C of 7.2% is c/w good glycemic control with home meds (metformin and jardiance). Tolerating CHO consistent diet - pt ordering softer food due to lack of dentition and no dentures. IBW= 70kg. Pt declines diabetes education at this time ?verbalizes he will be going home soon feels things are going well. Estimated Nutrition needs: 2553kcals (REEx1.3), 56-70g protein (.8-1g/kg IBW) and 2075-2575mL fluid as tolerated (urine out +500-1000). Diagnosis: Stage 3 obesity AEB current BMI >40. Intervention: Pt declined diabetes education (at this time and outpatient). Continue ordering manageable textures on CHO consistent diabetes diet. Monitoring /evaluation: Will monitor for any changes affecting nutritional status. Kodak Carmona DTR, customer operations intern Time Spent in Nutritional Counseling and Treatment: 15 minutes
--- NOTE | 2021-10-01 13:16 | W.PM.PROGNOT ---
Date of Service Date of service: 10/01/21 Time of Service: 13:16 Assessment and Plan Assessment and plan (1) Cellulitis of leg, right: Status: Acute Assessment and plan: vancomycin day 2, improving slowly elevate as much as possible during the day (2) Bacteremia: Status: Acute Assessment and plan: blood cultures positive for group c strep continue ceftriaxone 2 gm daily for 2 weeks repeat blood cultures negative echo today. (3) Hypertension: Status: Chronic Assessment and plan: blood pressure stable off HCTZ (on hold for HANNAH) continue to monitor. no new medications (4) Community acquired pneumonia: Status: Acute Assessment and plan: Left lower lobe infiltrate by CT scan. Consistent with his presentation of shortness of breath and cough. Will continue ceftriaxone and doxycycline day 4/5 Oxygen supplementation now at 1 liter. wean as able. (5) Acute on chronic renal failure: Status: Acute Assessment and plan: improved overnight with fluids. continue hold hydrochlorothiazide. renal dosing and monitor closely (6) Diabetes mellitus type 2: Status: Chronic Assessment and plan: Blood sugar is running high. We will continue his usual Lantus. continue diabetic diet, sliding scale ac/hs (7) Obstructive sleep apnea syndrome: Status: Chronic Assessment and plan: He wears nocturnal CPAP. We will see if he can bring in his home device.. (8) Discharge planning issues: Status: Acute Assessment and plan: He does not want aggressive resuscitative measures if indeed his condition deteriorates where he cannot likely to survive. case management following anticipate a discharge to home +/- home health services in 1-3 days will need 2 weeks of IV ceftriaxone. discussed with Dr Duke Subjective Subjective Patient reports: no new complaints, feels better, tolerating liquids well, tolerating a regular diet, voiding w/o difficulty and afebrile Exam Const General: cooperative and no acute distress Nutritional Appearance: obese Orientation: alert, awake and oriented x3 HENMT Head: normal to inspection and normocephalic Chest Chest: normal inspection of the chest Resp Effort & Inspection: normal respiratory effort Auscultation: rhonchi left lower and no wheezes Cardio Rate: regular rate Rhythm: regular rhythm GI Inspection: distended and obesity Palpation: soft Auscultation: normal bowel sounds Skin General skin exam: other (chronic discoloration of bilateral lower extremity, venous stasis) Lesions: lesion noted (right landers) Rashes: rashes noted (right lower extremity, improved since yesterday) Extrem General: normal to inspection, full ROM and edema Laterality: bilateral (right greater than left) Objective Last Vital Signs Temp 36.5 C 10/01/21 11:20 Pulse 65 10/01/21 11:20 Resp 19 10/01/21 11:20 BP 98/56 L 10/01/21 11:20 Pulse Ox 97 10/01/21 11:20 Laboratory Results - last 24 hr 10/01/21 10/01/21 10/01/21 06:30 06:30 06:30 WBC 5.05 RBC 4.51 Hgb 12.7 L Hct 39.3 L MCV 87.1 MCH 28.2 MCHC 32.3 RDW 15.1 H Plt Count 127 L MPV 10.1 Immature Gran % 0.8 Neutrophils % 75.2 Lymphocytes % 6.7 Monocytes % 12.5 Eosinophils % 4.0 Basophils % 0.8 Nucleated RBC % 0 Absolute Neutrophils 3.80 Absolute Lymphocytes 0.34 L Absolute Monocytes 0.63 Absolute Eosinophils 0.20 Absolute Basophils 0.04 ESR 28 H Sodium 138 Potassium 4.4 Chloride 104 Carbon Dioxide 22.4 Anion Gap 11.6 H BUN 65 H Creatinine 1.7 H Estimated GFR/1.73 m2 39.18 Glucose 156 H Calcium 8.9 Total Bilirubin 0.6 AST 74 H ALT 81 H Alkaline Phosphatase 88 C-Reactive Protein 9.47 H Total Protein 6.7 Albumin 3.1 L PAWSS Pt Consumed Any Amount of Alcohol Within the Last 30 days OR had positive GABRIELE Upon Admission: No
[2021-10-01] MEDS: cefTRIAXone 2 GM/50 ML BAG IVPB (13:30)
[2021-10-01] MEDS: Normal Saline 500 ML 30 ML IV (13:31)
[2021-10-01] MEDS: Acetaminophen 325 MG TAB PO (14:49)
--- NOTE | 2021-10-01 14:56 | PT.INTREAT ---
Date of service: 10/01/21 Time of Service: 14:22 PT Notes Visit Reasons: CAP,Hypoxia Inpatient Physical Therapy Treatment Note [facility] Date: 10/01/2021 PRECAUTIONS: WBAT B, Activity as tolerated SUBJECTIVE: Kurtis is pleasant and agreeable to participating in PT. He states that has not been using an assistive device recently, however, he had following both of his TKA for balance. OBJECTIVE: PAIN: Patient c/o R knee pain post session, reported to nursing BED MOBILITY/TRANSFERS Sit-stand: SBA Stand-sit: SBA GAIT Assistive Device: FWW Weight bearing: WBAT B Assist: SBA-S Distance: 100' + 200' Deviation: Without heel strike on L THEREX: Patient was instructed in a resisted UE and LE strengthening program, completed in a seated position, with 2.5# dumbbells and red Theraband. ASSESSMENT: Patient tolerated session well with minimal c/o R knee pain post session. He was able to tolerate a progression in gait distance with FWW support and SBA-S. PLAN: Continue with global strengthening and gait training with least restrictive device for improved mobility. TREATMENT CODE/TIME: 24 minutes; [id number], [id number] (14:22)
[2021-10-01 15:51] LABS: Streptococcus Pneumoniae Ag, U Negative (Negative)
--- NOTE | 2021-10-01 16:15 | CHAPLAIN ---
Kurtis was up in his chair when I visited. He is a member of the [facility], and Dennis, the hospital visitor from was in to see Kurtis today. His has been visiting as well. Kurtis said he had planned to go home on Thursday, but was told today it might be before he is discharged.
[2021-10-01] MEDS: Enoxaparin 40 MG/0.4 ML SYR SC (16:45)
[2021-10-01] MEDS: VANCOMYCIN/WATER (PEG) 1.25 GM/250 ML BAG IV (17:00)
--- NOTE | 2021-10-01 19:33 | CMPROGNOTE_ITS ---
- If Service Date Differs Date of service: 10/01/21 Time of Service: 19:33 Care Management Progress Note S/O: Kurtis was sitting up in his chair when CM met with him. He reported that he is feeling well today. Per provider, he may be able to change to oral antibiotics. If he requires home IV abx, he has been given a quote for about $35/week, plus a fee for [facility] RN visits. He stated that he has had home IV abx previously, so he is comfortable with that plan, but he would prefer oral, if it is possible. CM will continue to follow. A: 76 year old male admitted to [facility] on 09/27/21 for CAP, Hypoxia P: Anticipate Kurtis will be discharged home with IV antibiotics when medically ready. SABA is working with [facility] for home IV ABX and will follow up with them tomorrow about pricing and delivery time frame to support his discharge. CM will need to fax [facility] the order when it's ready. He will need new [facility] RN/PT services. He will transport via private vehicle with family. CM will continue to support discharge planning needs.
[2021-10-01] MEDS: Gabapentin 300 MG CAP 900 MG PO (19:35)
[2021-10-01] MEDS: Docusate Sodium 100 MG CAP PO (19:35)
[2021-10-01] MEDS: Magnesium Oxide 400 MG TAB PO (22:36)
[2021-10-02] VITALS (7 sets, daily range): BP systolic 110–126; BP diastolic 52–73; PULSE 64–76; RESP 2–20; TEMP 36–37.2; O2SAT 94–97
[2021-10-02] MEDS: DOXYCYCLINE 100 MG in Normal Saline 100 ML IVPB ×2 (03:35→17:06)
[2021-10-02] MEDS: Normal Saline Flush 10 ML SYR IVP ×4 (03:35→20:36)
[2021-10-02] MEDS: Albuterol/Ipratropium 3 ML UPD VIAL UPD ×3 (05:12→23:50)
[2021-10-02] MEDS: Nystatin POWDER 15 GM JAR TP ×2 (07:49→20:32)
[2021-10-02] MEDS: Lachydrin 12% LOTION 225 GM BTL TP ×3 (07:49→20:39)
[2021-10-02] MEDS: Fluticasone NASAL SPRAY 16 GM BTL NS (07:50)
[2021-10-02] MEDS: Docusate Sodium 100 MG CAP PO ×2 (07:50→20:33)
[2021-10-02] MEDS: Aspirin E.C. 81 MG TABEC PO (07:50)
[2021-10-02] MEDS: Gabapentin 300 MG CAP 600 MG PO (07:50)
[2021-10-02] MEDS: Carvedilol 25 MG TAB PO ×2 (07:50→20:33)
[2021-10-02] MEDS: guaiFENesin 600 MG TABCR PO ×2 (07:50→20:33)
[2021-10-02] MEDS: Losartan 50 MG TAB 100 MG PO (07:51)
[2021-10-02] MEDS: Insulin Glargine 300 UNITS/3 ML PEN 30 UNITS SC (07:51)
[2021-10-02] MEDS: Insulin Aspart 300 UNITS/3 ML PEN SC ×3 (07:52→17:50)
--- NOTE | 2021-10-02 09:19 | CMPROGNOTE_ITS ---
- If Service Date Differs Date of service: 10/02/21 Time of Service: 09:19 Care Management Progress Note S/O: SABA was sitting up on the side of his bed when CM met with him. He is anticipating being discharged home on Thursday with a 7 days course of home ABX and [facility] RN/PT. Per [facility] ([facility]), 7 day cost will be $34.71, which will cover medication and supplies. When [facility] ran his insurance, [facility] noted there could be a $40 nursing co-pay if the nurse was contracted through them. CM notified, Yissel at [facility] who states that they will bill his insurance directly and not contract through [facility]. Yissel does not anticipate the $40 daily copay, but will let us know when she runs his insurance. A: 76 year old male admitted to [facility] on 09/27/21 for CAP, Hypoxia P: Anticipate Kurtis will be discharged home with IV antibiotics when medically ready. SABA is working with [facility] for home IV ABX and will follow up with them tomorrow. CM will need to fax [facility] the order when it's ready. He will need new [facility] RN/PT services. He will transport via private vehicle with family. CM will continue to support discharge planning needs.
[2021-10-02] MEDS: Magnesium Oxide 400 MG TAB 800 MG PO (10:23)
--- NOTE | 2021-10-02 13:42 | PT.INTREAT ---
Date of service: 10/02/21 Time of Service: 08:33 PT Notes Visit Reasons: CAP,Hypoxia Inpatient Physical Therapy Treatment Note [facility] Date: 10/02/2021 PRECAUTIONS: WBAT B, Activity as tolerated SUBJECTIVE: Kurtis is pleasant and agreeable to participating in PT. He reports that he continues to have pain in posterior R knee, which is limiting his mobility. He reports that prior to his admission he was utilizing SPC for support, only outdoors over uneven surfaces, and was ambulating without assistive device support indoors. OBJECTIVE: PAIN: Patient c/o R knee pain. Ice pack given post session. BED MOBILITY/TRANSFERS Sit-stand: SBA Stand-sit: SBA GAIT Assistive Device: FWW Weight bearing: WBAT B Assist: SBA Distance: 100' x2 in a.m.; 200' in p..m. Deviation: Without heel strike on L, R knee pain; R knee buckle x3 in p.m. THEREX: Patient was instructed in a LE strengthening program with focus on R quad strengthening, completed in a standing position, as per flow sheet. R knee buckling x1, with Mod A for recovery in a.m.; he was instructed in an open-chain LE strengthening program, as per flow sheet in p.m. ASSESSMENT: Patient tolerated session with c/o R knee pain which appears to limit his mobility. He is demonstrating R knee instability with buckling with closed-chain ther ex x1 in a.m. and with gait training with FWW support x3 in p.m. PLAN: Continue with global strengthening and gait training with least restrictive device for improved mobility and progression toward baseline level of function. TREATMENT CODE/TIME: Session 1: 33 minutes; 00412, [id number] (08:33) Session 2: 23 minutes; [id number], [id number] (14:01)
[2021-10-02] MEDS: cefTRIAXone 2 GM/50 ML BAG IVPB (14:31)
--- NOTE | 2021-10-02 15:32 | W.PM.PROGNOT ---
Date of Service Date of service: 10/02/21 Time of Service: 15:32 Assessment and Plan Assessment and plan (1) Cellulitis of leg, right: Status: Acute Assessment and plan: vancomycin day 3, improving slowly elevate as much as possible during the day (2) Bacteremia: Status: Acute Assessment and plan: blood cultures positive for group c strep continue ceftriaxone 2 gm daily for 2 weeks repeat blood cultures negative echo with no vegetation seen (3) Hypertension: Status: Chronic Assessment and plan: blood pressure stable off HCTZ (on hold for HANNAH) continue to monitor. no new medications (4) Community acquired pneumonia: Status: Acute Assessment and plan: Left lower lobe infiltrate by CT scan. Consistent with his presentation of shortness of breath and cough. Will continue ceftriaxone and doxycycline day 4/5 Oxygen supplementation now at 1 liter. wean as able. (5) Acute on chronic renal failure: Status: Acute Assessment and plan: improved . continue hold hydrochlorothiazide. renal dosing and monitor closely (6) Diabetes mellitus type 2: Status: Chronic Assessment and plan: Blood sugar is running high. We will continue his usual Lantus. continue diabetic diet, sliding scale ac/hs (7) Obstructive sleep apnea syndrome: Status: Chronic Assessment and plan: He wears nocturnal CPAP. We will see if he can bring in his home device.. (8) Discharge planning issues: Status: Acute Assessment and plan: He does not want aggressive resuscitative measures if indeed his condition deteriorates where he cannot likely to survive. case management following anticipate a discharge to home +/- home health services will need 2 weeks of IV ceftriaxone. discussed with Dr Duke Subjective Subjective Patient reports: no new complaints, still having pain (right lower extremity), voiding w/o difficulty, bowel movement and afebrile; denies nausea and shortness of breath Exam Const General: cooperative and no acute distress Nutritional Appearance: obese Orientation: alert, awake and oriented x3 HENMT Head: normal to inspection and normocephalic Chest Chest: normal inspection of the chest Resp Effort & Inspection: normal respiratory effort Auscultation: rhonchi left lower and no wheezes Cardio Rate: regular rate Rhythm: regular rhythm GI Inspection: distended and obesity Palpation: soft Auscultation: normal bowel sounds Skin General skin exam: no rashes or lesions noted and other (chronic discoloration of bilateral lower extremity, venous stasis) Lesions: lesion noted (right landers) Rashes: rashes noted (right lower extremity, improved since yesterday) Extrem General: normal to inspection, full ROM and edema Laterality: bilateral (right greater than left) Objective Last Vital Signs Temp 36.6 C 10/02/21 11:19 Pulse 65 10/02/21 11:19 Resp 19 10/02/21 11:19 BP 110/59 L 10/02/21 11:19 Pulse Ox 95 10/02/21 11:19 Laboratory Results - last 24 hr 09/28/21 00:55 Ur Strep pneumoniae Ag Negative PAWSS Pt Consumed Any Amount of Alcohol Within the Last 30 days OR had positive GABRIELE Upon Admission: No
[2021-10-02] MEDS: Enoxaparin 40 MG/0.4 ML SYR SC (17:03)
[2021-10-02] MEDS: Normal Saline 500 ML 100 ML IV (17:05)
[2021-10-02 18:00] LABS: Clarity Cloudy; Nucleated Cells 103070 uL (0)
[2021-10-02] MEDS: VANCOMYCIN/WATER (PEG) 1.25 GM/250 ML BAG IV (18:24)
--- NOTE | 2021-10-02 19:10 | NUR.NOTE ---
Nursing Note: At approximately 1600 on 10/02/21, this RN noted that Dr. Wilson was in the pt.'s room performing the ordered orthopedic consult. Per Diana Calle RN (who was in the room finishing up from midline placement), Dr. Wilson removed 60 mL of purulent drainage from the pt.'s right knee, which was sent down to the laboratory for specimen analysis.
[2021-10-02 19:23] LABS: Mononuclear Cells 5 %; Polynuclear Cells 95 %
--- NOTE | 2021-10-02 20:00 | OCONE_ITS ---
Date of service: 10/02/21 Time of Service: 16:20 History of Present Illness History of Present Illness Chief Complaint: Right knee pain and weakness Narrative: Kurtis is a 76-year-old who I know well for both of his knees. He was admitted on 27 September for shortness of breath and fever. He reports that for about 2 to 3 days prior he was having increasing fatigue, weakness along with some shortness of breath. He does recall falling forcefully onto the right side in the week prior to that admission suffering a laceration to the anterior aspect of the right leg with notable swelling. He has had some persistent swelling about the right leg ever since the knee replacement form of outside in December 2020 with a cemented posterior stabilized rotating platform component. During this admission he was diagnosed with group C streptococcal bacteremia and likely community-acquired pneumonia. He was being treated with antibiotics and had a slowly improving CRP from 16-9. However, he was having continued discomfort and weakness with ambulation on the right knee although he rarely complains of significant pain. He definitely admitted having increasing discomfort. Interestingly, in 2019 he underwent a knee replacement on the left side in November and suffered an infection of the knee in January once again due to streptococcal bacteremia. This was treated with thorough irrigation debridement and antibiotics. He does feel that the swelling is much worse around the knee. He continues to have some redness and warmth about the right leg and has been assumed to have a cellulitis of the right lower extremity. He does feel that bilateral lower extremities become weak and his balance has been off. When he fell recently he was about his cane and the legs hyperflexed underneath him landing on the right anterior landers. He denies any numbness or tingling. He denies issues with the incision itself. He feels that the knee has been functioning well for the last few weeks. When I really pushed him on timing he does report that the right knee swelling and pain seems to have been within the last 2 to 3 weeks tops. Consults Consult date: 10/02/21 Requesting physician: Denise Mathur Consult Reason Right Knee Pain and Swelling in setting of bacteremia Assessment and Plan Assessment and plan (1) Infection of total right knee replacement: Status: Acute Assessment and plan: Kurtis is a 76-year-old who unfortunately has an infected right total knee replacement. The timing of this infection is significantly important. However, Kurtis is quite uncertain about the exact times. It seems that this really happened in the last few weeks corresponding to his other symptoms of fatigue, weakness, fever, shortness of breath. He does have a positive bacteremia which would support the idea that this is hematogenous spread which is the best case scenario. He does not report much pain now nor in the past. He did have a fall 2 to 3 weeks ago where he suffered a laceration and abrasion on the right leg as well as increasing weakness and pain about the right knee. This is likely when he contaminated his bloodstream, possibly the knee, and suffering arthrotomy rupture. I reviewed all this with Kurtis. While the most definitive treatment would be explantation of the components with either a single or two-stage I do think it is reasonable to continue with irrigation and debridement and component retention. This to be similar to the treatment on the left side. Hematogenous spread infections, especially strep gamma can be treated with the DAIR technique with slightly better success. However, was quite honest that there is a failure rate of at least 20 to 30% which may require further intervention. He expressed understanding of this. I also communicated this with the medicine team. Unfortunately, scheduling will be quite challenging. I am hopeful that it may be able to perform this tomorrow afternoon. Thus, we will keep him n.p.o. after midnight. I will communicate with him and the team if this has to be pushed ba to Thursday. I reviewed the technical features of the case. I discussed the risk of the procedure to include bleeding, infection persistence, reinfection, loosening, stiffness, weakness, rerupture, laxity, blood clot. Despite these risk, he elects to proceed. Qualifiers: Encounter type: initial encounter Qualified Code(s): T84.53XA - Infection and inflammatory reaction due to internal right knee prosthesis, initial encounter Review of Systems All systems reviewed & are unremarkable except as noted in HPI and below [facility] Medical History Abnormal LFTs Secondary to fartty infiltrate of the liver. Arthritis CAD (coronary artery disease) Cellulitis RIGHT LOWER LEG Chronic lower back pain Diabetes Hearing loss History of seizures as a child Hx of myocardial infarction 10/2011 STRESS TEST COMPLETED 11/29/2019 Hyperlipidemia Hypertension Osteoarthritis Renal insufficiency Sleep apnea with use of continuous positive airway pressure (CPAP) Tubulovillous adenoma polyp of colon Noted by colonoscopy. 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 Wilson s/p debridement and poly exchange 02/10/20 History of total right knee replacement (01/16/21) Family History Maternal Aunt Colon cancer Maternal Aunt Colon cancer Father , 70s Heart disease Social History Smoking/Tobacco Use Status: Never Smoking risk assessment performed?: Yes Alcohol Intake: never Drug use: Never Substance use type: does not use Do you feel safe at home: Yes Do you feel safe in your relationship?: Yes Exam Narrative Exam Narrative: Kurtis is sitting up in the hospital bed. He is in no acute distress. Breathing comfortably. Alert and oriented x3. Evaluation of his right leg demonstrates a well-healed incision about the anterior aspect of the right knee. There are no signs of infection outwardly at this level. There is notable edema throughout the lower leg from the proximal calf down to the foot with redness about the leg and a healing abrasion with a scab over it. There is still some erythema about the lower aspect of the leg some mild discomfort palpation. In evaluation of the right knee there is notable effusion. There is a palpable defect of the arthrotomy and the superomedial border of the patella. He has a notable extensor lag and is unable to lift the leg off the bed. Attempted passive motion causes an increase in pain outside of an arc of only 30 degrees. He has some mild pain to palpation along the joint lines. The knee is stable to varus and valgus stress. Using a prep of iodine I performed an aspiration of the right knee. This was done from a medial approach to the defect palpable at the skin. I was able to easily withdrawal 60 cc of grossly purulent material. This was sent to the lab for cell count and culture. Results Last Vital Signs Temp 36.6 C 10/02/21 19:15 Pulse 73 10/02/21 19:15 Resp 20 11/03/21 19:15 BP 119/73 10/02/21 19:15 Pulse Ox 97 10/02/21 19:15 Labs Result diagrams: 10/01/21 06:30 10/01/21 06:30 Labs: Laboratory Results - last 24 hr 10/02/21 16:25 Fluid Source R Knee Fluid Color Yellow Fluid Clarity Cloudy Fluid WBC 132617 Fld Polynuclear WBCs % 95 Fluid Mononuclear Cell 5
[2021-10-02] MEDS: Gabapentin 300 MG CAP 900 MG PO (20:32)
[2021-10-02] MEDS: Magnesium Oxide 400 MG TAB PO (22:08)
[2021-10-02] MEDS: Acetaminophen 325 MG TAB PO (22:08)
[2021-10-02] MEDS: HYDROcodone 5/Acetaminophen 325 TAB PO (23:50)
[2021-10-03 03:25] VITALS: BP 114/67; PULSE 61; RESP 19; TEMP 36.5; O2SAT 95
[2021-10-03] MEDS: DOXYCYCLINE 100 MG in Normal Saline 100 ML IVPB ×2 (04:18→16:23)
[2021-10-03] MEDS: Albuterol/Ipratropium 3 ML UPD VIAL UPD ×3 (06:00→19:36)
[2021-10-03] MEDS: Aspirin E.C. 81 MG TABEC PO ×2 (08:00→20:34)
[2021-10-03] MEDS: Gabapentin 300 MG CAP 600 MG PO (08:00)
[2021-10-03] MEDS: Losartan 50 MG TAB 100 MG PO (08:01)
[2021-10-03] MEDS: Docusate Sodium 100 MG CAP PO ×2 (08:01→20:33)
[2021-10-03] MEDS: guaiFENesin 600 MG TABCR PO ×2 (08:01→20:33)
[2021-10-03] MEDS: Carvedilol 25 MG TAB PO ×2 (08:01→20:34)
[2021-10-03] MEDS: Lachydrin 12% LOTION 225 GM BTL TP ×3 (08:02→20:33)
[2021-10-03] MEDS: Fluticasone NASAL SPRAY 16 GM BTL NS (08:02)
[2021-10-03] MEDS: Nystatin POWDER 15 GM JAR TP ×2 (08:02→20:33)
[2021-10-03] MEDS: Insulin Aspart 300 UNITS/3 ML PEN SC ×3 (08:08→17:20)
[2021-10-03] MEDS: Insulin Glargine 300 UNITS/3 ML PEN 30 UNITS SC (08:09)
[2021-10-03] MEDS: Normal Saline Flush 10 ML SYR IVP ×3 (08:11→21:32)
--- NOTE | 2021-10-03 08:43 | PDOC.CMPRO ---
- If Service Date Differs Date of service: 10/03/21 Time of Service: 08:43 Care Management Progress Note S/O: Kurtis was sitting up in his chair when CM met with him. He was pleasant and easily engaged in conversation. He verbalized that he has an infection in his right knee and will need to go to the OR tomorrow to see how bad it is and learn more about his need for terminal superintendent antibiotics. CM will continue to support discharge planning needs. A: 76 year old male admitted to [facility] on 09/27/21 for CAP, Hypoxia P: Anticipate Kurtis will be discharged home with IV antibiotics when medically ready with new [facility] RN/PT services. CM was previously working with [facility] for his home IV ABX and they will put the order on hold until more is known about his IV antibiotic course. He will transport via private vehicle with family. CM will continue to support discharge planning needs.
[2021-10-03 09:06] VITALS: BP 125/64; PULSE 68; RESP 20; TEMP 36.6; O2SAT 95
[2021-10-03] MEDS: Magnesium Oxide 400 MG TAB 800 MG PO (10:33)
--- NOTE | 2021-10-03 10:55 | PT.INNT ---
Date of service: 10/03/21 Time of Service: 10:56 PT Notes Visit Reasons: CAP,Hypoxia 10/03/2021 Per hospitalists Denise Mathur NP and Dr. Duke, hold PT until post OR irrigation of R TKA, scheduled for 10/04.
--- NOTE | 2021-10-03 13:50 | W.DIABETESNO ---
Date of service: 10/03/21 Time of Service: 13:52 Diabetes Note NOTE: Followed up with Kurtis ? intake 100% of meals and no complaints of appetite, denies N/V/C/D. Insulin regimen change noted due to higher FBG (149 09/30 and 156 10/01) ? hold on HS lantus (70 units) and resume home insulin regimen. Approached to see if Kurtis has interest in some outpatient nutrition support and trialing a CGM at discharge to help with glycemic control. Kurtis confirmed he?s be interested but no smart phone use to use with [employer] so will monitor for discharge and work to apply a [employer] system before he leaves with the goal of outpatient follow up to review his data. Will monitor changes in glucose and follow up at discharge. [employer] NDTR ? Process Controls Technician Time Spent in Nutritional Counseling and Treatment: 15 minutes
[2021-10-03] MEDS: cefTRIAXone 2 GM/50 ML BAG IVPB (14:17)
--- NOTE | 2021-10-03 15:37 | W.PM.PROGNOT ---
Date of Service Date of service: 10/03/21 Time of Service: 15:37 Assessment and Plan Assessment and plan (1) Infection of total right knee replacement: Status: Acute Assessment and plan: continue antiboitics, plan for OR tomorrow. cultures pending. orders per Dr Wilson Qualifiers: Encounter type: initial encounter Qualified Code(s): T84.53XA - Infection and inflammatory reaction due to internal right knee prosthesis, initial encounter (2) Cellulitis of leg, right: Status: Acute Assessment and plan: vancomycin day 4. elevate as much as possible during the day (3) Bacteremia: Status: Acute Assessment and plan: blood cultures positive for group c strep continue ceftriaxone 2 gm daily for 2 weeks repeat blood cultures negative echo with no vegetation seen source likely leg (4) Hypertension: Status: Chronic Assessment and plan: blood pressure stable off HCTZ (on hold for HANNAH) continue to monitor. no new medications (5) Community acquired pneumonia: Status: Resolved Assessment and plan: Left lower lobe infiltrate by CT scan. Consistent with his presentation of shortness of breath and cough. completed ceftriaxone and doxycycline day 04/03 continue i/s, acapella and pulmonary toileting (6) Acute on chronic renal failure: Status: Resolved Assessment and plan: improved . continue hold hydrochlorothiazide. renal dosing and monitor closely (7) Diabetes mellitus type 2: Status: Chronic Assessment and plan: Blood sugar is running high. We will continue his usual Lantus. continue diabetic diet, sliding scale ac/hs (8) Obstructive sleep apnea syndrome: Status: Chronic Assessment and plan: He wears nocturnal CPAP. We will see if he can bring in his home device.. (9) Discharge planning issues: Status: Acute Assessment and plan: He does not want aggressive resuscitative measures if indeed his condition deteriorates where he cannot likely to survive. case management following anticipate a discharge to home +/- home health services will need 2 weeks of IV ceftriaxone. discussed with Dr Duke Subjective Subjective Patient reports: no new complaints, pain is less, tolerating liquids well, tolerating a regular diet, voiding w/o difficulty and afebrile Exam Const General: cooperative and no acute distress Nutritional Appearance: obese Orientation: alert, awake and oriented x3 HENMT Head: normal to inspection and normocephalic Chest Chest: normal inspection of the chest Resp Effort & Inspection: normal respiratory effort Auscultation: rhonchi left lower and no wheezes Cardio Rate: regular rate Rhythm: regular rhythm GI Inspection: distended and obesity Palpation: soft Auscultation: normal bowel sounds Skin General skin exam: no rashes or lesions noted and other (chronic discoloration of bilateral lower extremity, venous stasis) Lesions: lesion noted (right landers) Rashes: rashes noted (right lower extremity, improved since yesterday) Extrem General: normal to inspection, full ROM and edema Laterality: bilateral (right greater than left) Objective Last Vital Signs Temp 36.6 C 10/03/21 09:06 Pulse 68 10/03/21 09:06 Resp 20 10/03/21 09:06 BP 125/64 10/03/21 09:06 Pulse Ox 95 10/03/21 09:06 Laboratory Results - last 24 hr 10/02/21 16:25 Fluid Source R Knee Fluid Color Yellow Fluid Clarity Cloudy Fluid WBC 240021 Fld Polynuclear WBCs % 95 Fluid Mononuclear Cell 5 PAWSS Pt Consumed Any Amount of Alcohol Within the Last 30 days OR had positive GABRIELE Upon Admission: No
[2021-10-03 15:45] VITALS: BP 128/68; PULSE 64; RESP 22; TEMP 36.6; O2SAT 97
[2021-10-03 16:14] LABS: Vancomycin, Trough 12.7 ug/mL (10.0-20.0)
[2021-10-03] MEDS: Enoxaparin 40 MG/0.4 ML SYR SC (16:23)
[2021-10-03] MEDS: VANCOMYCIN/WATER (PEG) 1.25 GM/250 ML BAG IV (18:27)
[2021-10-03 19:36] VITALS: RESP 1
[2021-10-03 19:55] VITALS: BP 125/64; PULSE 69; RESP 20; TEMP 36.7; O2SAT 96
[2021-10-03] MEDS: Gabapentin 300 MG CAP 900 MG PO (20:34)
--- NOTE | 2021-10-03 21:31 | W.PM.PROGNOT ---
Date of Service Date of service: 10/03/21 Time of Service: 12:31 Assessment and Plan Assessment and plan (1) Infection of total right knee replacement: Status: Acute Assessment and plan: Kurtis is a 76-year-old who was admitted for what was presumed to be pneumonia but also a right lower extremity cellulitis which is now produced strep bacteremia. His right knee is infected, likely strep. Giving timing and case is already going in the operating room, we will proceed with operative intervention tomorrow at lunchtime. I discussed this once again with Kurtis. It will be like his left side, opening up the knee, cleaning out the knee, washing it out, replacing the plastic (polyethylene), and then closing with antibiotics. All his questions were answered. N.p.o. after midnight. Qualifiers: Encounter type: initial encounter Qualified Code(s): T84.53XA - Infection and inflammatory reaction due to internal right knee prosthesis, initial encounter Subjective Subjective Interval history since last seen: Kurtis is doing well. He still complains of some pain and swelling about the right knee. No acute changes. He feels that the redness on his leg is about the same. No fevers no chills. Exam Narrative Exam Narrative: Sitting up in the chair. No acute distress. Evaluation of the right leg shows a notable effusion with a palpable defect about the arthrotomy site. Redness of the right lower extremity seems to be relatively unchanged without any drainage or weeping. Objective Last Vital Signs Temp 36.7 C 10/03/21 19:55 Pulse 69 10/03/21 19:55 Resp 20 10/03/21 19:55 BP 125/64 10/03/21 19:55 Pulse Ox 96 10/03/21 19:55 Laboratory Results - last 24 hr 10/03/21 15:45 Vancomycin Trough 12.7 PAWSS Pt Consumed Any Amount of Alcohol Within the Last 30 days OR had positive GABRIELE Upon Admission: No
[2021-10-03] MEDS: Magnesium Oxide 400 MG TAB PO (21:33)
[2021-10-04] VITALS (19 sets, daily range): BP systolic 105–145; BP diastolic 54–81; PULSE 50–72; RESP 1–22; TEMP 34.9–36.8; O2SAT 94–99; BMI 41.8
[2021-10-04] MEDS: Albuterol/Ipratropium 3 ML UPD VIAL UPD ×3 (00:48→18:06)
[2021-10-04] MEDS: DOXYCYCLINE 100 MG in Normal Saline 100 ML IVPB (03:37)
[2021-10-04] MEDS: HYDROcodone 5/Acetaminophen 325 TAB PO (03:37)
[2021-10-04] MEDS: Acetaminophen 325 MG TAB PO (03:38)
[2021-10-04 06:17] LABS: Abs Immature Grans 0.06 10^3/uL (0.0-0.06); Absolute Basophil Count 0.03 10^3/uL (0.0-0.2); Absolute Eosinophil Count 0.24 10^3/uL (0.0-0.7); Absolute Lymphocyte Count 0.61 10^3/uL (1.2-3.4); Absolute Monocyte Count 0.55 10^3/uL (0.1-0.8); Absolute Neutrophil Count 3.76 10^3/uL (1.2-6.7); Basophils % 0.6; Eosinophils % 4.6; HCT 38.5 % (40.0-50.0); HGB 12.5 g/dL (13.5-17.5); Immature Grans % 1.1; Lymphocytes % 11.6; MCH 28.7 pg (27.0-33.0); MCHC 32.5 % (32.0-36.0); MCV 88.3 fL (80-95); MPV 9.7 fL (8.0-11.0); Monocytes % 10.5; Neutrophils % 71.6; Nucleated RBC 0 %; Platelet Count 181 10^3/uL (130-400); RBC 4.36 10^6/uL (4.36-5.78); RDW 14.8 % (11.8-14.1); RDW-SD 48.4 fL; WBC 5.25 10^3/uL (4.4-10.8)
[2021-10-04 06:25] LABS: Anion Gap 9.8 mmol/L (3-11); BUN 55 mg/dL (7-18); CO2 24.2 mmol/L (21.0-32.0); CREATININE 1.5 mg/dL (0.70-1.30); Chloride 105 mmol/L (98-107); Estimated GFR 45.26 (mL/min/1.73m2); Glucose 134 mg/dL (74-106); Potassium 4.9 mmol/L (3.5-5.1); Sodium 139 mmol/L (136-145)
[2021-10-04] MEDS: Gabapentin 300 MG CAP 600 MG PO (09:03)
[2021-10-04] MEDS: Carvedilol 25 MG TAB PO ×2 (09:03→20:53)
[2021-10-04] MEDS: Losartan 50 MG TAB 100 MG PO (09:03)
[2021-10-04] MEDS: Lachydrin 12% LOTION 225 GM BTL TP ×2 (09:04→20:53)
[2021-10-04] MEDS: Nystatin POWDER 15 GM JAR TP ×2 (09:04→20:54)
--- NOTE | 2021-10-04 09:46 | ANES.PREOP_ITS ---
General Info Date of Service Date Performed: 10/04/21 Height: 5 ft 8 in Weight: 124.6 kg Body Mass Index (BMI): 41.8 Surgical Procedure: Operation Date: 10/04/21 12:10 Proposed Procedures Side Surgeon p Knee washout, poly exchange Yrn Wilson MD s Knee Ruptured Quad Tendon Repair Yrn Wilson MD Meds Allergies and Home Medications Allergies Allergy/AdvReac Type Severity Reaction Status Date / Time amlodipine besylate AdvReac Mild edema Unverified 09/20/21 07:52 [From Norvasc] enalapril maleate AdvReac Mild cough Unverified 09/20/21 07:52 [From Vasotec] enalaprilat dihydrate AdvReac Mild cough Unverified 09/20/21 07:52 [From Vasotec] pravastatin sodium AdvReac Mild myalgia Unverified 09/20/21 07:52 [From Pravachol] from Lipitor rosuvastatin [From Crestor] AdvReac Mild Myalgia Unverified 09/20/21 07:52 Home Medication Medication Instructions Recorded losartan [Cozaar] 100 mg PO DAILY 11/01/13 nitroglycerin [Nitrostat] 0.4 mg SUBLINGUAL Q5 MIN PRN X3 11/01/13 PRN #15 tab gabapentin 600 mg PO BID tab-cap 12/18/14 magnesium oxide See Rx Instructions .ROUTE .COMPLEX 12/18/14 insulin lispro [Humalog KwikPen 30 unit SQ .SLIDING SCALE 09/01/16 Insulin] Jardiance 25 mg PO DAILY 05/22/18 fluticasone propionate 1 spray INTRANASAL DAILY 02/10/20 hydrochlorothiazide 50 mg PO DAILY #0 tab-cap 02/20/20 acetaminophen 500 mg PO Q6H PRN #60 tab 01/16/21 carvedilol 25 mg PO BID 01/16/21 aspirin 81 mg tablet,delayed 81 mg PO BID tab 05/22/21 release docusate sodium 100 mg capsule 100 mg PO BID 05/22/21 insulin glargine 100 unit/mL 30 unit SUBCUT QAM ml 05/22/21 subcutaneous solution bisacodyl 5 mg tablet,delayed 5 mg PO ONCE #4 tab 09/20/21 release lidocaine 5 % topical ointment 1 applic TOPICAL QHS 09/20/21 loperamide 2 mg capsule 2 mg PO Q6H PRN 09/20/21 polyethylene glycol 3350 17 238 g PO ONCE #238 g 09/20/21 gram/dose oral powder ropinirole 1 mg tablet 1 mg PO QHS 09/20/21 Current Visit Medications: Current Medications Generic Name Dose Route Start Last Admin Trade Name Freq PRN Reason Stop Dose Admin Acetaminophen 0 mg 09/27/21 15:23 10/04/21 03:38 Acetaminophen 325 Mg Tab PO 325 mg Q4H PRN PRN Administration Hydrocodone Bitart/Acetaminophen 1 tab 10/02/21 22:30 10/04/21 03:37 Hydrocodone 5/Acetaminophen 325 Tab PO 1 tab Q6H PRN PRN Administration Al Hydrox/Mg Hydrox/Simethicone 30 ml 09/27/21 15:23 Mylanta Suspension 30 Ml Cup PO Q2H PRN PRN Albuterol Sulfate 2.5 mg 09/27/21 15:23 Albuterol 2.5 Mg/3 Ml Inh Soln Vial UPD Q2H PRN PRN Albuterol/Ipratropium 3 ml 09/27/21 18:00 10/04/21 05:29 Albuterol/Ipratropium 3 Ml Upd Vial UPD 3 ml Q6H HELEN Administration Ammonium Lactate 225 gm 09/29/21 09:50 10/04/21 09:04 Lachydrin 12% Lotion 225 Gm Btl TP 1 applic TID HELEN Administration Aspirin 81 mg 09/27/21 20:00 10/04/21 09:04 Aspirin E.C. 81 Mg Tabec PO Not Given BID HELEN Bisacodyl 5 mg 10/04/21 06:38 Bisacodyl 5 Mg Tabec PO DAILY PRN PRN Carvedilol 25 mg 09/27/21 20:00 10/04/21 09:03 Carvedilol 25 Mg Tab PO 25 mg BID HELEN Administration Dextrose 0 gm 09/27/21 15:27 Glucose 40% Oral Solution 15 Gm/37.5 Gm Tube PO DIRECTED PRN Dextrose/Water 0 gm 09/27/21 15:27 Dextrose 50%-Water 25 Gm/50 Ml Syr IVP DIRECTED PRN Dimethicone/Zinc Oxide 0 gm 09/27/21 15:23 Jf Protect Cream 142 Gm Tube TP PRN PRN Docusate Sodium 100 mg 09/27/21 15:23 Docusate Sodium 100 Mg Cap PO TID PRN PRN Docusate Sodium 100 mg 09/27/21 20:00 10/04/21 09:04 Docusate Sodium 100 Mg Cap PO Not Given BID HELEN Enoxaparin Sodium 40 mg 09/27/21 16:00 10/03/21 16:23 Enoxaparin 40 Mg/0.4 Ml Syr SC 40 mg Q24H HELEN Administration Fluticasone Propionate 0 gm 09/28/21 08:30 10/03/21 08:02 Fluticasone Nasal [place] 16 Gm Btl NS 1 spray DAILY HELEN Administration Gabapentin 600 mg 09/28/21 08:30 10/04/21 09:03 Gabapentin 300 Mg Cap PO 600 mg QAM HELEN Administration Gabapentin 900 mg 09/27/21 20:00 10/03/21 20:34 Gabapentin 300 Mg Cap PO 900 mg QPM HELEN Administration Sodium Chloride 500 mls @ 0 mls/hr 09/27/21 15:23 10/02/21 18:24 Saline 500ml Bag IV 0 mls/hr PRN PRN Infusion As Directed Ceftriaxone Sodium/Dextrose 2 gm in 50 mls @ 100 mls/hr 09/28/21 14:00 10/03/21 14:17 Rocephin IVPB 100 mls/hr Q24H [facility] Administration Doxycycline Hyclate 100 mg/ 100 mls @ 100 mls/hr 09/28/21 04:00 10/04/21 04:40 Sodium Chloride IVPB Infused Q12H [facility] Infusion Vancomycin/PEG/NADA/Lysine/Water 1.25 gm in 250 mls @ 166.667 mls/hr 10/03/21 18:00 10/03/21 18:27 Vancocin Injection IV 166.667 mls/hr Q20H [facility] Administration Protocol IV Miscellaneous Supplies 1 each 09/27/21 15:30 Iv Access IV DIRECTED [facility] Insulin Aspart 0 units 09/27/21 17:00 10/04/21 09:04 Insulin Aspart 300 Units/3 Ml Pen SC Not Given 0800,1200,1700 [facility] Protocol Insulin Glargine 30 units 10/02/21 08:30 10/03/21 08:09 Insulin Glargine 300 Units/3 Ml Pen SC 30 units QAM HELEN Administration Insulin Glargine 70 units 10/02/21 22:00 Insulin Glargine 300 Units/3 Ml Pen SC HS [facility] Losartan Potassium 100 mg 09/28/21 08:30 10/04/21 09:03 Losartan 50 Mg Tab PO 100 mg DAILY HELEN Administration Magnesium Hydroxide 30 ml 09/27/21 15:23 Milk Of Magnesia 30 Ml Cup PO DAILY PRN PRN Magnesium Oxide 800 mg 09/28/21 10:00 10/03/21 10:33 Magnesium Oxide 400 Mg Tab PO 800 mg DAILY@1000 HELEN Administration Magnesium Oxide 400 mg 09/27/21 22:00 10/03/21 21:33 Magnesium Oxide 400 Mg Tab PO 400 mg DAILY@2200 HELEN Administration Nitroglycerin 0.4 mg 09/27/21 17:27 Nitroglycerin 0.4 Mg Tab SL Q5 MIN PRN X3 PRN Nystatin 15 gm 09/29/21 20:00 10/04/21 09:04 Nystatin Powder 15 Gm Jar TP 1 applic BID HELEN Administration Pt's Own Jardiance 1 each 09/28/21 08:30 10/03/21 08:02 25mg Tablet PO 1 each DAILY HELEN Administration Polyethylene Glycol 17 gm 10/04/21 06:38 Polyethylene Glycol 3350 17 Gm Packet PO BID PRN PRN Sodium Chloride 0 ml 09/27/21 15:23 10/03/21 14:21 Normal Saline Flush 10 Ml Syr IVP 40 ml PRN PRN Administration Sodium Chloride 0 ml 10/02/21 20:00 10/03/21 21:32 Normal Saline Flush 10 Ml Syr IVP 10 ml BID HELEN Administration PFSH Active Problems Active Problems: Problem Status Onset Code 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.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 Palliative care patient Z51.5 Advance care planning Z71.89 Hypertension I10 Acute on chronic renal failure N17.9, N18.9 Bacteremia R78.81 Community acquired pneumonia J18.9 Cellulitis of leg, right L03.115 Hypoxemia R09.02 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 Asymmetrical sensorineural hearing loss H90.5 History of total right knee replacement 01/16/21 Z96.651 First degree heart block I44.0 Septic arthritis of knee, left 02/09/20 M00.9 Acute kidney injury (nontraumatic) N17.9 Discharge planning issues Z02.9 DVT prophylaxis Z29.9 Renal insufficiency N28.9 Abnormal LFTs Sepsis A41.9 Cellulitis L03.90 Primary osteoarthritis of right knee M17.11 History of total left knee replacement (TKR) 12/14/19 Z96.652 Diabetes mellitus type 2 E11.9 Hyperlipidemia E78.5 Obstructive sleep apnea syndrome G47.33 Benign prostatic hyperplasia N40.0 Obesity E66.9 Benign hypertension I10 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 Arthritis CAD (coronary artery disease) Cellulitis RIGHT LOWER LEG Chronic lower back pain Diabetes Hearing loss History of seizures as a child Hx of myocardial infarction 10/2011 STRESS TEST COMPLETED 11/29/2019 Hyperlipidemia Hypertension Osteoarthritis Renal insufficiency Sleep apnea with use of continuous positive airway pressure (CPAP) Tubulovillous adenoma polyp of colon Noted by colonoscopy. Venous insufficiency Surgical History Surgical History colonoscopy (09/02/16) H/O heart artery stent X2 2013 History of tonsillectomy and adenoidectomy History of total left knee replacement (TKR) (12/14/19) Dr. Wilson s/p debridement and poly exchange 02/10/20 History of total right knee replacement (01/16/21) Tobacco Smoking/Tobacco Use Status: Never Alcohol Alcohol Intake: never Substance Use Substance use: Never Substance use type: does not use Vital Signs and Lab Results Vital Signs Most Recent Vital Signs in EMR: Most Recent Vital Signs Temp Pulse Resp BP Pulse Ox 36.5 C 67 18 106/57 L 96 10/04/21 08:25 10/04/21 08:25 10/04/21 08:25 10/04/21 08:25 10/04/21 08:25 Point of Care Results Point of Care Results: Finger Stick Blood Glucose 155 10/04/21 09:04 Lab Results Result Diagrams: 10/04/21 06:10 10/04/21 06:10 Blood Type / Crossmatch: No Data to Display Complete Blood Count: White Blood Count 5.25 10^3/uL (4.4-10.8) 10/04/21 06:10 10/04/21 Red Blood Count 4.36 10^6/uL (4.36-5.78) 10/04/21 06:10 10/04/21 Hemoglobin 12.5 g/dL (13.5-17.5) L 10/04/21 06:10 10/04/21 Hematocrit 38.5 % (40.0-50.0) L 10/04/21 06:10 10/04/21 Platelet Count 181 10^3/uL (130-400) 10/04/21 06:10 10/04/21 Venous Blood Lactate 2.3 mmol/L (0.6-1.4) H* 09/27/21 11:10 09/27/21 Complete Metabolic Panel: Sodium Level 139 mmol/L (136-145) 10/04/21 06:10 10/04/21 Potassium Level 4.9 mmol/L (3.5-5.1) 10/04/21 06:10 10/04/21 Chloride Level 105 mmol/L (98-107) 10/04/21 06:10 10/04/21 Carbon Dioxide Level 24.2 mmol/L (21.0-32.0) 10/04/21 06:10 10/04/21 Blood Urea Nitrogen 55 mg/dL (7-18) H 10/04/21 06:10 10/04/21 Creatinine 1.5 mg/dL (0.70-1.30) H 10/04/21 06:10 10/04/21 Estimated GFR/1.73 m2 45.26 (mL/min/1.73m2) 10/04/21 06:10 10/04/21 Magnesium Level 2.1 mg/dL (1.8-2.4) 09/29/21 06:26 09/29/21 Calcium Level 9.0 mg/dL (8.5-10.1) 10/04/21 06:10 10/04/21 Albumin 3.1 g/dL (3.4-5.0) L 10/01/21 06:30 10/01/21 Glucose Level 134 mg/dL (74-106) H 10/04/21 06:10 10/04/21 Hemoglobin A1c 7.2 % (<5.7) H 09/28/21 06:30 09/28/21 C-Reactive Protein 9.47 mg/dL (0.0-0.3) H 10/01/21 06:30 10/01/21 Liver Function Panel: Alanine Aminotransferase (ALT/SGPT) 81 U/L (16-63) H 10/01/21 06:30 10/01/21 Aspartate Amino Transf (AST/SGOT) 74 U/L (15-37) H 10/01/21 06:30 10/01/21 Coagulation Panel: INR International Normalized Ratio 1.2 (0.9-1.1) H 09/27/21 11:10 09/27/21 Prothrombin Time 11.6 sec (9.3-11.0) H 09/27/21 11:10 09/27/21 Activated Partial Thromboplast Time 26.7 sec (21.0-27.5) 09/27/21 11:10 09/27/21 D-Dimer 830 ng/mlFEU (<500) H 09/27/21 11:10 09/27/21 Cardiac Panel: Troponin I < 0.05 ng/mL (<0.06) 09/27/21 14:13 09/27/21 [id number] Natriuretic Peptide 334 pg/mL (<300) H 09/27/21 11:10 09/27/21 Arterial Blood Gas: No Data to Display Venous Blood Gas: Venous Blood pH 7.36 (7.31-7.41) 09/27/21 11:10 09/27/21 Venous Blood Partial Pressure O2 26 mmHg 09/27/21 11:10 09/27/21 Venous Blood Partial Pressure CO2 47 mmHg (41-51) 09/27/21 11:10 09/27/21 Venous Blood Oxygen Saturation 47 % 09/27/21 11:10 09/27/21 Venous Blood HCO3 26 mmol/L (23-28) 09/27/21 11:10 09/27/21 Venous Blood Base Excess 1 mmol/L (-2-3) 09/27/21 11:10 09/27/21 Venous Blood Total Carbon Dioxide 24 mmol/L (24-29) 09/27/21 11:10 09/27/21 Pancreas Panel: No Data to Display Thyroid Panel: No Data to Display Infectious Disease: Coronavirus (COVID-19)(PCR) Negative (Negative) 09/27/21 11:08 09/27/21 Coronavirus 2019 Source NASOPHARYX 09/27/21 11:08 09/27/21 Blood Cultures: No Data to Display Toxicology Panel: No Data to Display Imaging and Studies Imaging and Studies EKG Summary: Conclusion Sinus rhythm...normal P axis, V-rate 60- 99 Prolonged KS interval...KS >220, V-rate 50- 90 09/27/21 First degree AV block Stress Test Summary: Stress ECG Conclusion 1. There was no evidence of ischemia on this ECG portion of this exam. 11/29/19 Echocardiogram Summary: Conclusion Normal left ventricular wall thickness and chamber size. Estimated ejection fraction is 55 to 60%. There are no segmental wall motion abnormalities Normal right ventricular size and systolic function Both atria are normal in size Aortic valve is trileaflet and sclerotic without stenosis or regurgitation Mild mitral annular calcification with trace regurgitation Normal tricuspid valve with trace regurgitation. Unable to estimate right ventricular systolic pressure Mildly to moderately dilated aortic root and ascending aorta 09/30/21 Anesthesia Assessment and Plan Anesthesia History Personal History: No History of Anesthesia Complications Family History: No Family History of Anesthesia Complications Exercise Tolerance Exercise Tolerance: Metabolic Equivalents<4 Cardiac & Pulmonary Exam Cardiac Exam: Normal S1/S2 Heart Sounds Pulmonary Exam: Clear Bilateral Breath Sounds Cardiac and Pulmonary Comment:: Cardiac stents 2014 Airway Exam Known Difficult Airway: No Mallampati Class: 3 Mouth Opening: Narrow (< 3cm) Thyromental Distance: Greater than 3 cm Neck Range of Motion: Full ROM Neck Circumference: Normal Teeth Condition: Generalized Poor Dentition (Many missing and broken) ASA Classification ASA Score: ASA 3 Emergency Case?: No NPO Status NPO Status: NPO Clears >2 hours, Solids >8 hours Anesthesia Plan Resuscitation Status: Full Code Anesthesia Technique: General Anesthesia Airway Planned: LMA Monitors Used: Standard Monitors
[2021-10-04] MEDS: Fluticasone NASAL SPRAY 16 GM BTL NS (10:07)
[2021-10-04] MEDS: Normal Saline Flush 10 ML SYR IVP ×3 (10:08→20:55)
--- NOTE | 2021-10-04 10:34 | W.PM.PROGNOT ---
Date of Service Date of service: 10/04/21 Time of Service: 10:34 Assessment and Plan Assessment and plan (1) Infection of total right knee replacement: Status: Acute Assessment and plan: continue antibiotics, plan for OR cultures pending. orders per Dr Wilson anticipate 6 weeks of IV antibiotics. Qualifiers: Encounter type: initial encounter Qualified Code(s): T84.53XA - Infection and inflammatory reaction due to internal right knee prosthesis, initial encounter (2) Cellulitis of leg, right: Status: Acute Assessment and plan: vancomycin day 5. elevate as much as possible during the day (3) Bacteremia: Status: Acute Assessment and plan: blood cultures positive for group c strep continue ceftriaxone 2 gm daily for 2 weeks repeat blood cultures negative echo with no vegetation seen source likely leg (4) Hypertension: Status: Chronic Assessment and plan: blood pressure stable off HCTZ (on hold for HANNAH) continue to monitor. no new medications (5) Community acquired pneumonia: Status: Resolved Assessment and plan: Left lower lobe infiltrate by CT scan. Consistent with his presentation of shortness of breath and cough. completed ceftriaxone and doxycycline day 5/ continue i/s, acapella and pulmonary toileting (6) Acute on chronic renal failure: Status: Resolved Assessment and plan: improved . continue hold hydrochlorothiazide. renal dosing and monitor closely (7) Diabetes mellitus type 2: Status: Chronic Assessment and plan: Blood sugar is running high. We will continue his usual Lantus. continue diabetic diet, sliding scale ac/hs (8) Obstructive sleep apnea syndrome: Status: Chronic Assessment and plan: He wears nocturnal CPAP. We will see if he can bring in his home device.. (9) Discharge planning issues: Status: Acute Assessment and plan: He does not want aggressive resuscitative measures if indeed his condition deteriorates where he cannot likely to survive. case management following anticipate a discharge to home +/- home health services discussed with Dr Duke Subjective Subjective Patient reports: no new complaints, still having pain, tolerating liquids well and afebrile; denies shortness of breath Exam Const General: cooperative and no acute distress Nutritional Appearance: obese Orientation: alert, awake and oriented x3 HENMT Head: normal to inspection and normocephalic Chest Chest: normal inspection of the chest Resp Effort & Inspection: normal respiratory effort Auscultation: rhonchi left lower and no wheezes Cardio Rate: regular rate Rhythm: regular rhythm GI Inspection: distended and obesity Palpation: soft Auscultation: normal bowel sounds Skin General skin exam: no rashes or lesions noted and other (chronic discoloration of bilateral lower extremity, venous stasis) Lesions: lesion noted (right landers) Rashes: rashes noted (right lower extremity, improved since yesterday) Extrem General: normal to inspection, full ROM and edema Laterality: bilateral (right greater than left) Objective Last Vital Signs Temp 36.5 C 10/04/21 08:25 Pulse 67 10/04/21 08:25 Resp 18 10/04/21 08:25 BP 106/57 L 10/04/21 08:25 Pulse Ox 96 10/04/21 08:25 Laboratory Results - last 24 hr 10/02/21 10/03/21 10/04/21 16:25 15:45 06:10 WBC RBC Hgb Hct MCV MCH MCHC RDW Plt Count MPV Immature Gran % Neutrophils % Lymphocytes % Monocytes % Eosinophils % Basophils % Nucleated RBC % Absolute Neutrophils Absolute Lymphocytes Absolute Monocytes Absolute Eosinophils Absolute Basophils Sodium 139 Potassium 4.9 Chloride 105 Carbon Dioxide 24.2 Anion Gap 9.8 BUN 55 H Creatinine 1.5 H Estimated GFR/1.73 m2 45.26 Glucose 134 H Calcium 9.0 Vancomycin Trough 12.7 Path Cons Comment SEE COMMENT 10/04/21 06:10 WBC 5.25 RBC 4.36 Hgb 12.5 L Hct 38.5 L MCV 88.3 MCH 28.7 MCHC 32.5 RDW 14.8 H Plt Count 181 MPV 9.7 Immature Gran % 1.1 Neutrophils % 71.6 Lymphocytes % 11.6 Monocytes % 10.5 Eosinophils % 4.6 Basophils % 0.6 Nucleated RBC % 0 Absolute Neutrophils 3.76 Absolute Lymphocytes 0.61 L Absolute Monocytes 0.55 Absolute Eosinophils 0.24 Absolute Basophils 0.03 Sodium Potassium Chloride Carbon Dioxide Anion Gap BUN Creatinine Estimated GFR/1.73 m2 Glucose Calcium Vancomycin Trough Path Cons Comment PAWSS Pt Consumed Any Amount of Alcohol Within the Last 30 days OR had positive GABRIELE Upon Admission: No
--- NOTE | 2021-10-04 11:46 | CMPROGNOTE_ITS ---
- If Service Date Differs Date of service: 10/04/21 Time of Service: 11:46 Care Management Progress Note S/O: Kurtis was in the OR when CM attempted to meet with him today. He went to the OR for irrigation and debridement of his right knee. Per report, anticipate 6 weeks of IV antibiotics, although awaiting cultures to determine the course. He is interested in home IV abx, as he has done this in the past, but may be willing to travel to the infusion room if the cost of home IV abx is too high. Once course has been determined, CM will send orders to determine cost of treatment at home. CM will continue to follow. A: 76 year old male admitted to [facility] on 09/27/21 for CAP, Hypoxia P: Anticipate Kurtis will be discharged home with IV antibiotics when medically ready with new [facility] RN/PT services. CM was previously working with [facility] for his home IV ABX and they will put the order on hold until more is known about his IV antibiotic course. He will transport via private vehicle with family. CM will continue to support discharge planning needs.
[2021-10-04] MEDS: Lactated Ringers 1,000 ML 30 ML IV (12:03)
[2021-10-04] MEDS: Bupivacaine 0.25% Pres-Free 30 ML VIAL (13:26)
[2021-10-04] MEDS: Ketorolac 30 MG/ML VIAL (13:28)
--- NOTE | 2021-10-04 14:02 | W.PM.OP ---
Date of service: 10/04/21 Time of Service: 14:02 Operative Note Operative Note DATE OF PROCEDURE: 10/04/21 PRE-OP DIAGNOSIS: Right Prosthetic Knee Infection, Right Arthrotomy Rupture PROCEDURE: Irrigation and Debridement, Synovectomy, and Polyethylene Exchange - Right Knee SURGEON: Yrn Wilson ROBOTIC WELDING OPERATOR: Gela Choi ANESTHESIA TYPE: General LMA/ETT Refer to Anesthesia Record ESTIMATED BLOOD LOSS: 400 PATHOLOGY: other (Tissue and Fluid for culture) TOURNIQUET TIME: 42 COMPLICATIONS: None Patient was transported to: PACU Patient's condition: stable Implants: Depuy Attune 7x5mm Posterior Stabilized, Rotating Platform Insert Indications: Kurtis is a 76-year-old who was admitted for pneumonia and right leg cellulitis. He was diagnosed with strep bacteremia with increasing right knee pain and weakness. Aspiration of the knee confirmed infection within the knee which had previously been replaced in December 2020. I recommended operative debridement polyethylene exchange. He also was diagnosed with a rupture of his quadriceps and arthrotomy which I also would recommend fixing at the same time. I reviewed the risk of the procedure to include bleeding, infection persistence, pain, stiffness, weakness, retear, blood clot, damage to nerves and vessels, damage to muscles and tendons. Despite these risk, he elects to proceed. Findings: There is gross purulence about the knee joint. In general, the tissue quality appeared to be good. The components were not loose. There was a somewhat chronic appearing quadriceps tear with displacement of the lateral edge of the vastus medialis. An aggressive synovectomy was performed. After thorough debridement and irrigation, the polyethylene was placed and the knee closed, repairing the chronic defect, with antibiotic beads. Procedure Description: Kurtis was greeted in the preoperative holding area where the correct side was identified and marked. The consent was reviewed with the patient and signed. The history and physical was updated. All questions were answered. Kurtis was taken back to the operating room. A general anesthestic was administered. The patient was placed into the supine position on the operating room table. Posts were placed for positioning during the procedure. All bony prominences were well padded. Prophylactic antibiotics in the form of Cefazolin were administered. The left leg was then prepped with Chloraprep and draped in a standard fashion with impervious stockinette. A second prep with Chloraprep was performed prior to application of Iodine impregnated skin protection. A timeout to confirm correct identity, side and site, procedure, allergies, anesthesia, and medical concerns was performed. With the knee in some flexion, a midline incision was made overlying the knee utilizing the previous incision. Full thickness skin flaps were raised once the extensor mechanism was encountered. These were raised medially and laterally. There is an obvious defect of the quadriceps repair in the arthrotomy with a bautista of joint fluid. There was gross purulence of the knee joint. Fluid samples were swabbed and sent to the lab. Tissue specimen of infectious synovium was also sent for culture. Any bleeding was controlled with electrocautery. Medial and lateral skin flaps were raised to fully evaluate the extensor mechanism. The defect was quite obvious. It ended about the midportion of patella with maybe some slight diastases at that level but by the inferior portion of the patella there was no defect. The proximal extent went through the quadriceps split and into the vastus medialis. Using a curette and rongeur a debrided down any of the early scar formation to show tendinous material. Once the tendon was encountered it was able to be easily mobilized back over without significant tension and at 90 degrees of flexion. An aggressive synovectomy was then performed. This was done using an Allis clamp and a Manson to separate the synovium from the overlying joint capsule and extensor mechanism. This was performed throughout the medial gutter and lateral gutter as well as the suprapatellar space elevating this off of the distal femur. There was no gross necrotic tissue apparent. A rongeur was utilized to clear up any remaining synovium or potentially infectious material. The knee was then flexed up once again and the polyethylene was removed with an osteotome. With the knee back in extension, a synovectomy was performed posteriorly using a rongeur. Any bleeding from the synovectomy was then controlled with electrocautery. To minimize persistent nose, tourniquet was then inflated once the knee was flexed back up. It stayed there for 42 minutes. 6 L normal saline was irrigated through the wound using a pulse lavage. Throughout the irrigation pauses were taken to inspect the knee for any loose or residual synovitis or infectious material. With the irrigation completed, the knee was flexed back up and a new 7 x 5 mm attune posterior stabilized, rotating platform insert was then placed. During the irrigation on the back table, 1 g of vancomycin was made into calcium sulfate, Stimulan, beads. These were then placed into the knee in the suprapatellar pouch. The periosteal and capsular tissues were then systematically injected with a periarticular cocktail consisting of 50cc 0.25% Marcaine, 30mg Ketorolac, 20cc of Exparal. Using #1 Antimicrobial PDS, the arthrotomy and quadriceps split was repaired. This was done in interrupted fashion using [id number] and simple sutures. The tissue quality was excellent and there was great reapproximation of these tissues to each other and stable up to at least 100 degrees of flexion. There is no notable gapping of the arthrotomy site. Once again, the wound was thoroughly irrigated. Deep tissues were then reapproximated with 0 PDS and 2-0 PDS. The skin was closed with a running 3-0 Monocryl in a subcuticular fashion. This was reinforced with skin glue. A Mepilex silver dressing was applied along with a [id number] ED wrap. A CryoCuff was applied. Jus was transferred to the hospital stretcher without difficulty an suffering no apparent complication. Kurtis has a gaurded prognosis. Aspirin 81mg BID will be used for DVT prophylaxis. Cultures will be followed but this likely will be Streptococcus matching what grew out in his blood.
[2021-10-04] MEDS: fentaNYL 100 MCG/2 ML VIAL IVP (15:00)
--- NOTE | 2021-10-04 15:28 | W.ANESPOSTOP ---
Postoperative Evaluation Date, Time and Location Date Performed: 10/04/21 Time Performed: 15:28 Patient Location: PACU Vital Signs Most Recent Imported Vital Signs: Most Recent Vital Signs Temp Pulse Resp BP Pulse Ox 36.2 C L 53 L 12 115/81 94 10/04/21 15:15 10/04/21 15:15 10/04/21 15:15 10/04/21 15:15 10/04/21 15:15 Pain Score Most Recent Pain Score: Most Recent Pain Score Pain Level [Bilateral Mid 0 09/29/21 05:20 Abdomen] Pain Level 3 10/04/21 15:15 Assessment Mental Status: Awake (Alert & Oriented to Patient Baseline) Airway and Respiratory Function: Patent airway with normal (patient baseline) respiratory exam Cardiovascular Function: Hemodynamically Stable Hydration Status: Adequately Hydrated Nausea & Vomiting: No Nausea or Vomiting Pain: Pain is tolerable per patient Peripheral Nerve Block: Patient did not receive a nerve block
[2021-10-04] MEDS: Normal Saline 500 ML 30 ML IV (16:43)
[2021-10-04] MEDS: VANCOMYCIN/WATER (PEG) 1.25 GM/250 ML BAG IV (16:44)
[2021-10-04] MEDS: Enoxaparin 40 MG/0.4 ML SYR SC (17:35)
[2021-10-04] MEDS: Insulin Aspart 300 UNITS/3 ML PEN SC (17:41)
[2021-10-04] MEDS: Magnesium Oxide 400 MG TAB PO (20:52)
[2021-10-04] MEDS: Docusate Sodium 100 MG CAP PO (20:53)
[2021-10-04] MEDS: Aspirin E.C. 81 MG TABEC PO (20:53)
[2021-10-04] MEDS: Gabapentin 300 MG CAP 900 MG PO (20:54)
[2021-10-05] VITALS (7 sets, daily range): BP systolic 100–137; BP diastolic 56–80; PULSE 63–70; RESP 1–20; TEMP 36.3–37; O2SAT 94–96
[2021-10-05] MEDS: Albuterol/Ipratropium 3 ML UPD VIAL UPD ×3 (06:17→18:23)
[2021-10-05 07:16] LABS: HCT 35.9 % (40.0-50.0); HGB 11.5 g/dL (13.5-17.5); MCH 28.8 pg (27.0-33.0); MCV 89.8 fL (80-95); MPV 9.8 fL (8.0-11.0); Platelet Count 208 10^3/uL (130-400); RDW 14.9 % (11.8-14.1); RDW-SD 48.8 fL; WBC 5.97 10^3/uL (4.4-10.8)
[2021-10-05 07:32] LABS: Anion Gap 9.3 mmol/L (3-11); BUN 51 mg/dL (7-18); C-Reactive Protein 5.02 mg/dL (0.0-0.3); CO2 23.7 mmol/L (21.0-32.0); CREATININE 1.5 mg/dL (0.70-1.30); Calcium 8.8 mg/dL (8.5-10.1); Chloride 104 mmol/L (98-107); Estimated GFR 45.26 (mL/min/1.73m2); Glucose 149 mg/dL (74-106); Potassium 5.3 mmol/L (3.5-5.1); Sodium 137 mmol/L (136-145)
[2021-10-05] MEDS: Losartan 50 MG TAB 100 MG PO (08:11)
[2021-10-05] MEDS: Aspirin E.C. 81 MG TABEC PO ×2 (08:11→21:17)
[2021-10-05] MEDS: Gabapentin 300 MG CAP 600 MG PO (08:11)
[2021-10-05] MEDS: Carvedilol 25 MG TAB PO ×2 (08:12→21:17)
[2021-10-05] MEDS: Docusate Sodium 100 MG CAP PO ×2 (08:12→21:18)
[2021-10-05] MEDS: Normal Saline Flush 10 ML SYR IVP ×4 (08:12→21:17)
[2021-10-05] MEDS: Nystatin POWDER 15 GM JAR TP ×2 (08:13→21:35)
[2021-10-05] MEDS: Insulin Glargine 300 UNITS/3 ML PEN 30 UNITS SC (08:14)
[2021-10-05] MEDS: Fluticasone NASAL SPRAY 16 GM BTL NS (08:14)
[2021-10-05] MEDS: Insulin Aspart 300 UNITS/3 ML PEN SC ×2 (08:15→12:14)
--- NOTE | 2021-10-05 10:38 | PT.INIE ---
Date of service: 10/05/21 Time of Service: 10:00 PT Notes Visit Reasons: CAP,Hypoxia Inpatient Physical Therapy Evaluation Date: 10/05/2021 Referring Doctor: Yrn Wilson PT Orders: PT CONSULT: Status post right TKA I&D, WBAT with knee immobilizer, may remove KI in bed Precautions: Fall risk, standard Patient Profile/Admitting Diagnosis: 76-year-old male status post a right TKA I&D on 10/04/2021, due to infection. Admitted for what was presumed to be pneumonia but also a right lower extremity cellulitis, which developed into strep bacterium. He had recently been in outpatient physical therapy for balance and fall risk, due to progressive right LE. Has bilateral dropfoot. Abnormal LFTs Secondary to fartty infiltrate of the liver. Arthritis CAD (coronary artery disease) Cellulitis RIGHT LOWER LEG Chronic lower back pain Diabetes Hearing loss History of seizures as a child Hx of myocardial infarction 10/2011 STRESS TEST COMPLETED 11/29/2019 Hyperlipidemia Hypertension Osteoarthritis Renal insufficiency Sleep apnea with use of continuous positive airway pressure (CPAP) Tubulovillous adenoma polyp of colon Noted by colonoscopy. 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 Wilson s/p debridement and poly exchange 02/10/20 History of total right knee replacement (01/16/21) Social History/Home Situation: Lives with in a private home with a ramp to enter. will be his primary support. 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 Independent with SPC at baseline. Walk-in shower Equipment Owned/DME: Has axillary cruthces, FWW, and SPC, grab bars in bathroom. Electric recliner chair to help with sit to stand Subjective: Discomfort right knee, improves with activity. Feels to be able to handle navigating home environment, with supportive and walker. Objective: General Observation: Sitting in recliner chair, KI right knee Mental Status: A&O x3 Pain: 45/10 diffuse right knee Vital Signs: BP 117/62, HR 70 ROM: Right Upper Extremity: Grossly WFL Left Upper Extremity: Grossly WFL Right Lower Extremity: Grossly WFL, but knee not evaluated due to KI placed. Lacking active dorsiflexion, of about -5 degrees Left Lower Extremity: Grossly WFL, lacking active dorsiflexion of about -5 degrees Strength: Right Upper Extremity: Grossly 4/5 Left Upper Extremity: Grossly 4/5 Right Lower Extremity: Not assessed, distal ankle plantarflexion 5/5, inversion dorsiflexion 3/5 in available range of motion as noted above Left Lower Extremity: Grossly 5/5, with exception of ankle dorsiflexion limited 3/5 in available range of motion as noted above Sensation: Intact bilateral LEs Bed Mobility/Transfers: Sit to stand from hospital recliner chair: Mod assist x2, to RW. Skilled cues for proper core recruitment, glute recruitment and movement pattern to limit falling forward. Stand to sit: CG x1, to highchair. With stand to sit and sit to stand transfers, patient does fairly well with a high chair, requires mod assist of 2 for low chairs. Bed mobility: Min assist right LE Gait: RW, CG x1, 15 feet Balance: Static Sitting: Good Dynamic Sitting: Good Static Standing: Poor Dynamic Standing: Poor Special Tests: Mobility Limitations Standardized Measure 57% disability Informed Consent/Education: Patient instructed in purpose of PT consult and plan of care. Always utilize highchair when returning home, place pillows under butt with chair, to ensure that he will be able to sit to stand with out difficulty. Assessment: Patient is a 76 year old male, requiring PT intervention to attend to improve functional difficulties with sit to stand, stand to sit, ambulation, and education on proper transfer performance and use of walker for safety, to return him home with supportive . He will be appropriate for discharge home with home health PT service, and currently demonstrates no safety and performance capabilities to tolerate discharge home as long as he has available for support. He will require use of RW, which he owns. He will also require elevated toilet seat the patient is able to stand off of the toilet, as low chairs limit his ability to do this without mod assist x2. Impairment level problems contributing to above functional deficit include: Right knee mobility deficits, with current need for HANNAH with all mobilization Balance deficit Upper extremity weakness Bilateral dropfoot Patient is assessed as a moderate complexity based on the following: History: See comorbidities Examination: See above impairments and functional limitations Presentation: Evolving Decision Making: Easy Goals: Goals X1 week 1. Supine-Sit independent 2. Sit-Supine independent 3. Sit-Stand supervision from high chair with RW 4. Stand-Sit supervision with high chair with RW 5. Bed-Chair supervision with RW 6. Chair-Bed supervision with RW 7. Gait 20 feet with RW, supervision 8. Independent with home exercise program [] Plan of Care/Treatment Plan: 1-2x/day, 7 days/week x 1 week. Plan of care has been reviewed with the CAD APPLICATION SUPPORT SPECIALIST providing the service under Physical Therapy direction. Initiate Physical Therapy intervention for strengthening, bed mobility, transfers, gait, stairs, balance training, use of assistive device. DISCHARGE RECOMMENDATIONS: Discharge with home health PT service and supportive care of . TREATMENT CODE/TIME: 11008 30 minutes direct and total
[2021-10-05] MEDS: Magnesium Oxide 400 MG TAB 800 MG PO (10:57)
[2021-10-05] MEDS: cefTRIAXone 2 GM/50 ML BAG IVPB (10:58)
--- NOTE | 2021-10-05 11:36 | PGE_ITS ---
Date of Service Date of service: 10/05/21 Time of Service: 10:36 Assessment and Plan Assessment and plan (1) Infection of total right knee replacement: Status: Acute Assessment and plan: Kurtis is a 76-year-old who unfortunately has a infected right total knee replacement. This likely is hematogenous spread from the cellulitis or the pneumonia or his sore throat, either way, likely bacteremia spread with Streptococcus. This is very similar to his contralateral side which did respond well to irrigation debridement and component retention. There was some slight delay in getting to the washout but I still think is within a 3 to 4-week window where this is likely to be successful, at least 80%. I do not think adjunct of rifampin would be necessary given that the likely organism is Streptococcus. His C-reactive protein has fallen already down to 5 and I expect it to continue to trend down. He did have a quadriceps and arthrotomy rupture and this has been repaired. Therefore, he should mobilize, weightbearing as tolerated, with the knee immobilizer in position. For the first 2-week no active flexion would be performed about the right knee. Recommendation would be at least 6 weeks of IV antibiotics with a trending C- reactive protein with transition to oral antibiotics for at least an additional 6 weeks. Cultures thus far negative from the knee as he was on antibiotics by do expect that they will return positive and speciate in the next few days. Qualifiers: Encounter type: initial encounter Qualified Code(s): T84.53XA - Infection and inflammatory reaction due to internal right knee prosthesis, initial encounter (2) Community acquired pneumonia: Status: Resolved (3) Cellulitis of leg, right: Status: Acute Subjective Subjective Interval history since last seen: Kurtis reports having pain in his right knee and leg. He feels it has been relatively constant mostly around the knee and more anterior than posterior. He denies fevers or chills. No shortness of breath. Exam Narrative Exam Narrative: Laying in the hospital bed. Sleepy but able to awaken and participate in the exam. Right lower extremity dressing is clean dry and intact. Notable swelling about the lower leg. He has intact ankle dorsiflexion, ankle plantarflexion, great toe extension, great toe flexion. Sensation intact light touch over the deep and superficial peroneal nerve and tibial nerve. Objective Last Vital Signs Temp 36.9 C 10/05/21 07:05 Pulse 70 10/05/21 07:05 Resp 20 10/05/21 07:05 BP 117/62 10/05/21 07:05 Pulse Ox 94 10/05/21 07:05 Laboratory Results - last 24 hr 10/05/21 10/05/21 06:15 06:15 WBC 5.97 RBC 4.00 L Hgb 11.5 L Hct 35.9 L MCV 89.8 MCH 28.8 MCHC 32.0 RDW 14.9 H Plt Count 208 MPV 9.8 Sodium 137 Potassium 5.3 H Chloride 104 Carbon Dioxide 23.7 Anion Gap 9.3 BUN 51 H Creatinine 1.5 H Estimated GFR/1.73 m2 45.26 Glucose 149 H Calcium 8.8 C-Reactive Protein 5.02 H PAWSS Pt Consumed Any Amount of Alcohol Within the Last 30 days OR had positive GABRIELE Upon Admission: No
[2021-10-05] MEDS: VANCOMYCIN/WATER (PEG) 1.25 GM/250 ML BAG IV (12:14)
[2021-10-05] MEDS: Lachydrin 12% LOTION 225 GM BTL TP ×2 (14:05→21:18)
[2021-10-05] MEDS: Enoxaparin 40 MG/0.4 ML SYR SC (16:08)
--- NOTE | 2021-10-05 16:31 | W.PM.PROGNOT ---
Date of Service Date of service: 10/05/21 Time of Service: 16:31 Assessment and Plan Assessment and plan (1) Sepsis: Status: Acute Assessment and plan: With strep dysgalactiae bacteremia and infection of R knee prosthesis. Additionally, cellulitis RLE appeared to respond better to vancomycin than it did to ceftriaxone. Repeat blood cultures (09/29) negative to date. S/p Washout by Dr Wilson on 10/04/21. Continue ceftriaxone as well as empiric vancomycin. (2) Infection of total right knee replacement: Status: Acute Assessment and plan: As above. Will plan for 6 weeks of IV abx followed by oral suppressive therapy. Qualifiers: Encounter type: initial encounter Qualified Code(s): T84.53XA - Infection and inflammatory reaction due to internal right knee prosthesis, initial encounter (3) Cellulitis of leg, right: Status: Acute Assessment and plan: Continue vancomycin (Day 6) Encourage elevation of the LEs. (4) Hypertension: Status: Chronic Assessment and plan: Not requiring re-introduction of medications at this time. Continue to monitor. (5) Community acquired pneumonia: Status: Resolved Assessment and plan: Left lower lobe infiltrate by CT scan. Consistent with his presentation of shortness of breath and cough. Completed 5 days of abx. Residual cough is actually likely due to fluid overload - will attempt tx with lasix. (6) Acute on chronic renal failure: Status: Resolved Assessment and plan: monitor with gentle diuresis (7) Diabetes mellitus type 2: Status: Chronic Assessment and plan: BGs close to target today. No change in basal bolus insulin. (8) Obstructive sleep apnea syndrome: Status: Chronic Assessment and plan: Slept with home device (CPAP). (9) Discharge planning issues: Status: Acute Assessment and plan: Full code; however, would not want aggressive resuscitative measures if his condition deteriorates where he cannot likely to survive. Will need 6 weeks of IV abx. (10) DVT prophylaxis: Status: Acute Assessment and plan: Discussing when safe to start dvt ppx with Dr Wilson. Subjective Subjective Interval history since last seen: Mr Alanis states that his cough is getting better. He feels constipated. Pain is there, but he does not want me to adjust his pain medicine. Denies dizziness, chest pain, shortness of breath, nausea. Exam Narrative Exam Narrative: General: Pleasant elderly male, A&Ox3, LITTLE TRAVERSE, sitting comfortably in a chair HEENT: EOMI, MMM Heart: RRR, no m/r/g Lungs: Crackles at B bases Abdomen: soft, nontender, nondistended Extremities:2+ edema LLE; RLE in a splint - c/d/i Objective Last Vital Signs Temp 37 C 10/05/21 15:35 Pulse 66 10/05/21 15:35 Resp 18 10/05/21 15:35 BP 137/67 10/05/21 15:35 Pulse Ox 96 10/05/21 15:35 Laboratory Results - last 24 hr 10/05/21 10/05/21 06:15 06:15 WBC 5.97 RBC 4.00 L Hgb 11.5 L Hct 35.9 L MCV 89.8 MCH 28.8 MCHC 32.0 RDW 14.9 H Plt Count 208 MPV 9.8 Sodium 137 Potassium 5.3 H Chloride 104 Carbon Dioxide 23.7 Anion Gap 9.3 BUN 51 H Creatinine 1.5 H Estimated GFR/1.73 m2 45.26 Glucose 149 H Calcium 8.8 C-Reactive Protein 5.02 H PAWSS Pt Consumed Any Amount of Alcohol Within the Last 30 days OR had positive GABRIELE Upon Admission: No
[2021-10-05] MEDS: Furosemide 20 MG/2 ML VIAL IVP (17:17)
[2021-10-05] MEDS: Senna TAB 1 TAB PO ×2 (17:18→21:17)
[2021-10-05] MEDS: Bisacodyl 5 MG TABEC PO (17:18)
[2021-10-05] MEDS: Magnesium Oxide 400 MG TAB PO (21:18)
[2021-10-05] MEDS: Gabapentin 300 MG CAP 900 MG PO (21:18)
[2021-10-05] MEDS: Benzonatate 100 MG CAP PO (21:34)
[2021-10-06] MEDS: Albuterol/Ipratropium 3 ML UPD VIAL UPD ×4 (00:20→17:29)
[2021-10-06 00:50] VITALS: RESP 1; RESP 8
[2021-10-06 03:20] VITALS: BP 100/58; PULSE 71; RESP 18; TEMP 36.5; O2SAT 95
[2021-10-06 07:07] VITALS: BP 119/67; PULSE 70; RESP 18; TEMP 36.8; O2SAT 96
[2021-10-06 08:11] LABS: Anion Gap 9.3 mmol/L (3-11); BUN 51 mg/dL (7-18); C-Reactive Protein 6.74 mg/dL (0.0-0.3); CO2 23.7 mmol/L (21.0-32.0); CREATININE 1.6 mg/dL (0.70-1.30); Calcium 9.4 mg/dL (8.5-10.1); Chloride 104 mmol/L (98-107); Estimated GFR 42.01 (mL/min/1.73m2); Glucose 140 mg/dL (74-106); Magnesium 2.3 mg/dL (1.8-2.4); Sodium 137 mmol/L (136-145); Vancomycin, Trough 19.3 ug/mL (10.0-20.0)
[2021-10-06 08:15] LABS: Abs Immature Grans 0.06 10^3/uL (0.0-0.06); Absolute Basophil Count 0.03 10^3/uL (0.0-0.2); Absolute Eosinophil Count 0.15 10^3/uL (0.0-0.7); Absolute Lymphocyte Count 0.52 10^3/uL (1.2-3.4); Absolute Monocyte Count 0.47 10^3/uL (0.1-0.8); Absolute Neutrophil Count 4.44 10^3/uL (1.2-6.7); Basophils % 0.5; Eosinophils % 2.6; HCT 34.4 % (40.0-50.0); HGB 11.2 g/dL (13.5-17.5); Immature Grans % 1.1; Lymphocytes % 9.2; MCH 28.7 pg (27.0-33.0); MCHC 32.6 % (32.0-36.0); MCV 88.2 fL (80-95); MPV 9.3 fL (8.0-11.0); Monocytes % 8.3; Neutrophils % 78.3; Nucleated RBC 0 %; Platelet Count 193 10^3/uL (130-400); RDW 14.9 % (11.8-14.1); RDW-SD 48.3 fL; WBC 5.67 10^3/uL (4.4-10.8)
[2021-10-06] MEDS: Aspirin E.C. 81 MG TABEC PO ×2 (08:47→19:42)
[2021-10-06] MEDS: Benzonatate 100 MG CAP PO ×3 (08:47→19:42)
[2021-10-06] MEDS: Carvedilol 25 MG TAB PO ×2 (08:47→19:42)
[2021-10-06] MEDS: Docusate Sodium 100 MG CAP PO ×2 (08:47→19:42)
[2021-10-06] MEDS: Fluticasone NASAL SPRAY 16 GM BTL NS (08:47)
[2021-10-06] MEDS: Furosemide 20 MG TAB PO (08:48)
[2021-10-06] MEDS: Lachydrin 12% LOTION 225 GM BTL TP ×2 (08:49→13:49)
[2021-10-06] MEDS: Gabapentin 300 MG CAP 600 MG PO (08:49)
[2021-10-06] MEDS: Losartan 50 MG TAB 100 MG PO (08:49)
[2021-10-06] MEDS: Senna TAB 1 TAB PO ×2 (08:49→19:54)
[2021-10-06] MEDS: Insulin Aspart 300 UNITS/3 ML PEN SC ×2 (08:50→12:44)
[2021-10-06] MEDS: Normal Saline Flush 10 ML SYR IVP ×3 (08:52→19:41)
[2021-10-06] MEDS: Nystatin POWDER 15 GM JAR TP (08:53)
[2021-10-06] MEDS: Insulin Glargine 300 UNITS/3 ML PEN 30 UNITS SC (08:54)
[2021-10-06] MEDS: Magnesium Oxide 400 MG TAB 800 MG PO (10:31)
[2021-10-06] MEDS: cefTRIAXone 2 GM/50 ML BAG IVPB (10:32)
--- NOTE | 2021-10-06 11:37 | PT.INTREAT ---
Date of service: 10/06/21 Time of Service: 09:40 PT Notes Visit Reasons: CAP,Hypoxia Inpatient Physical Therapy Treatment Note [facility] Date: 10/06/2021 PRECAUTIONS: Fall, standard SUBJECTIVE: Stated he feels he is walking better today. Has a ramp to get into home. OBJECTIVE: PAIN: 2 out of 10, without increase with ambulation. BED MOBILITY/TRANSFERS Sit-stand: CGA Stand-sit: CGA GAIT Assistive Device: FWW Weight bearing: WBAT on right, with KI in place Assist: CGA Distance: 65ft ASSESSMENT: Tolerated transfers sit to stand much easier today and ambulating well with FWW. Did require assistance from nursing to prevent foot slipping earlier in the morning, but he stated he felt more valentin later in the day. PLAN: Continue to work on ambulation with FWW for improved functional mobility. TREATMENT CODE/TIME: 59839, 9:40 to 9:55 am (15 minutes)
[2021-10-06] MEDS: VANCOMYCIN/WATER (PEG) 1.25 GM/250 ML BAG IV (11:43)
--- NOTE | 2021-10-06 14:09 | W.PM.PROGNOT ---
Date of Service Date of service: 10/06/21 Time of Service: 14:10 Assessment and Plan Assessment and plan (1) Sepsis: Start date: 10/06/21 Start time: 14:17 Status: Acute Assessment and plan: With strep dysgalactiae bacteremia and infection of R knee prosthesis. Additionally, cellulitis RLE appeared to respond better to vancomycin than it did to ceftriaxone. Repeat blood cultures (09/29) negative to date. S/p Washout by Dr Wilson on 10/04/21. Continue ceftriaxone as well as empiric vancomycin. (2) Infection of total right knee replacement: Start date: 10/06/21 Start time: 14:18 Status: Acute Assessment and plan: As above. Will plan for 6 weeks of IV abx followed by oral suppressive therapy. Qualifiers: Encounter type: initial encounter Qualified Code(s): T84.53XA - Infection and inflammatory reaction due to internal right knee prosthesis, initial encounter (3) Cellulitis of leg, right: Start date: 10/06/21 Start time: 14:19 Status: Acute Assessment and plan: Continue vancomycin (Day 7) Encourage elevation of the LEs. (4) Hypertension: Start date: 10/06/21 Start time: 14:19 Status: Chronic Assessment and plan: Not requiring re-introduction of medications at this time. Continue to monitor. (5) Community acquired pneumonia: Start date: 10/06/21 Start time: 14:19 Status: Resolved Assessment and plan: Left lower lobe infiltrate by CT scan. Consistent with his presentation of shortness of breath and cough. Completed 5 days of abx. Residual cough is actually likely due to fluid overload - will attempt tx with lasix. Consider aspiration pneumonia. Stated he choked on jello earlier today by accidentally breathing and trying to eat at the same time. Will continue to monitor as he states this only happened once but tendency to down play injuries. (6) Acute on chronic renal failure: Start date: 10/06/21 Start time: 14:21 Status: Resolved Assessment and plan: monitor with gentle diuresis (7) Diabetes mellitus type 2: Start date: 10/06/21 Start time: 14:21 Status: Chronic Assessment and plan: BGs close to target today. No change in basal bolus insulin. (8) Obstructive sleep apnea syndrome: Start date: 10/06/21 Start time: 14:22 Status: Chronic Assessment and plan: Slept with home device (CPAP). (9) DVT prophylaxis: Start date: 10/06/21 Start time: 14: Status: Acute Assessment and plan: Discussing when safe to start dvt ppx with Dr Wilson. (10) Discharge planning issues: Start date: 10/06/21 Start time: 14: Status: Acute Assessment and plan: Full code; however, would not want aggressive resuscitative measures if his condition deteriorates where he cannot likely to survive. Will need 6 weeks of IV abx. discussed with Dr. dave Subjective Subjective Patient reports: no new complaints Interval history since last seen: Sitting up in chair. Just finished breathing treatment. states pain is a 2 in knee. Denies CP, SOB. Will give IVP lasix for crackles in lungs. Exam Narrative Exam Narrative: General: Pleasant elderly male, A&Ox3, [place], sitting comfortably in a chair HEENT: EOMI, MMM Heart: RRR, no m/r/g Lungs: Crackles at B bases Abdomen: soft, nontender, nondistended, obese Extremities:1+ edema LLE; RLE in a splint - c/d/i 2+ edema around ankle Objective Last Vital Signs Temp 36.8 C 10/06/21 07:07 Pulse 70 10/06/21 07:07 Resp 18 10/06/21 07:07 BP 119/67 10/06/21 07:07 Pulse Ox 96 10/06/21 07:07 Laboratory Results - last 24 hr 10/06/21 10/06/21 10/06/21 07:45 07:45 07:45 WBC 5.67 RBC 3.90 L Hgb 11.2 L Hct 34.4 L MCV 88.2 MCH 28.7 MCHC 32.6 RDW 14.9 H Plt Count 193 MPV 9.3 Immature Gran % 1.1 Neutrophils % 78.3 Lymphocytes % 9.2 Monocytes % 8.3 Eosinophils % 2.6 Basophils % 0.5 Nucleated RBC % 0 Absolute Neutrophils 4.44 Absolute Lymphocytes 0.52 L Absolute Monocytes 0.47 Absolute Eosinophils 0.15 Absolute Basophils 0.03 Sodium 137 Potassium 5.0 Chloride 104 Carbon Dioxide 23.7 Anion Gap 9.3 BUN 51 H Creatinine 1.6 H Estimated GFR/1.73 m2 42.01 Glucose 140 H Calcium 9.4 Magnesium 2.3 C-Reactive Protein 6.74 H Vancomycin Trough 19.3 PAWSS Pt Consumed Any Amount of Alcohol Within the Last 30 days OR had positive GABRIELE Upon Admission: No
[2021-10-06] MEDS: Furosemide 20 MG/2 ML VIAL IVP (15:00)
[2021-10-06 16:09] VITALS: BP 109/67; PULSE 73; RESP 20; TEMP 36.8; O2SAT 95
--- NOTE | 2021-10-06 16:17 | W.PM.PROGNOT ---
Date of Service Date of service: 10/06/21 Time of Service: 10:18 Assessment and Plan Assessment and plan (1) Infection of total right knee replacement: Status: Acute Assessment and plan: Kurtis is a 76-year-old who has infection of his right knee. This is likely hematogenous spread from strep bacteremia. His cultures are no growth to date but I would assume this to be strep based on his appearance and the chronological order. He may weight-bear as tolerated with the knee immobilizer. Continue to follow the cultures but would expect discharge on ceftriaxone to be very reasonable. Dressing will stay on until follow-up in 2 weeks. Qualifiers: Encounter type: initial encounter Qualified Code(s): T84.53XA - Infection and inflammatory reaction due to internal right knee prosthesis, initial encounter Subjective Subjective Interval history since last seen: Kurtis reports be doing better today. He still some pain about the knee, mostly medial. However, he is doing much better. He has been able to ambulate with physical therapy. He denies fevers or chills. His cultures have no growth to date. Exam Narrative Exam Narrative: Sitting up in the bed. Right leg is in an immobilizer. Outer Eduin wrap is removed. Dressing is clean dry and intact. Notable swelling about the right knee. He is able to demonstrate active great toe extension, flexion, ankle dorsiflexion and ankle plantarflexion. Objective Last Vital Signs Temp 36.8 C 10/06/21 16:09 Pulse 73 10/06/21 16:09 Resp 20 10/06/21 16:09 BP 109/67 10/06/21 16:09 Pulse Ox 95 10/06/21 16:09 Laboratory Results - last 24 hr 10/06/21 10/06/21 10/06/21 07:45 07:45 07:45 WBC 5.67 RBC 3.90 L Hgb 11.2 L Hct 34.4 L MCV 88.2 MCH 28.7 MCHC 32.6 RDW 14.9 H Plt Count 193 MPV 9.3 Immature Gran % 1.1 Neutrophils % 78.3 Lymphocytes % 9.2 Monocytes % 8.3 Eosinophils % 2.6 Basophils % 0.5 Nucleated RBC % 0 Absolute Neutrophils 4.44 Absolute Lymphocytes 0.52 L Absolute Monocytes 0.47 Absolute Eosinophils 0.15 Absolute Basophils 0.03 Sodium 137 Potassium 5.0 Chloride 104 Carbon Dioxide 23.7 Anion Gap 9.3 BUN 51 H Creatinine 1.6 H Estimated GFR/1.73 m2 42.01 Glucose 140 H Calcium 9.4 Magnesium 2.3 C-Reactive Protein 6.74 H Vancomycin Trough 19.3 PAWSS Pt Consumed Any Amount of Alcohol Within the Last 30 days OR had positive GABRIELE Upon Admission: No
[2021-10-06] MEDS: Enoxaparin 40 MG/0.4 ML SYR SC (16:54)
[2021-10-06] MEDS: Acetaminophen 325 MG TAB PO (19:42)
[2021-10-06] MEDS: Gabapentin 300 MG CAP 900 MG PO (19:43)
[2021-10-06 19:45] VITALS: BP 111/59; PULSE 73; RESP 18; TEMP 36.2; O2SAT 96
[2021-10-06 23:20] VITALS: BP 114/62; PULSE 65; RESP 18; TEMP 36.3; O2SAT 96
[2021-10-07 03:10] VITALS: BP 103/57; PULSE 64; RESP 18; TEMP 36.2; O2SAT 95
[2021-10-07] MEDS: Albuterol/Ipratropium 3 ML UPD VIAL UPD ×3 (05:25→18:16)
[2021-10-07 07:24] LABS: Abs Immature Grans 0.04 10^3/uL (0.0-0.06); Absolute Basophil Count 0.04 10^3/uL (0.0-0.2); Absolute Eosinophil Count 0.23 10^3/uL (0.0-0.7); Absolute Lymphocyte Count 0.49 10^3/uL (1.2-3.4); Absolute Monocyte Count 0.48 10^3/uL (0.1-0.8); Absolute Neutrophil Count 4.89 10^3/uL (1.2-6.7); Basophils % 0.6; Eosinophils % 3.7; HCT 34.3 % (40.0-50.0); HGB 11.2 g/dL (13.5-17.5); Immature Grans % 0.6; Lymphocytes % 7.9; MCH 28.8 pg (27.0-33.0); MCHC 32.7 % (32.0-36.0); MCV 88.2 fL (80-95); MPV 9.4 fL (8.0-11.0); Monocytes % 7.8; Neutrophils % 79.4; Nucleated RBC 0 %; Platelet Count 212 10^3/uL (130-400); RBC 3.89 10^6/uL (4.36-5.78); RDW 14.8 % (11.8-14.1); RDW-SD 47.8 fL; WBC 6.17 10^3/uL (4.4-10.8)
[2021-10-07 07:43] VITALS: BP 104/63; PULSE 61; RESP 20; TEMP 36.3; O2SAT 99
[2021-10-07 07:59] LABS: Anion Gap 10.7 mmol/L (3-11); BUN 53 mg/dL (7-18); CO2 22.3 mmol/L (21.0-32.0); CREATININE 1.6 mg/dL (0.70-1.30); Calcium 8.8 mg/dL (8.5-10.1); Chloride 105 mmol/L (98-107); Estimated GFR 42.01 (mL/min/1.73m2); Glucose 128 mg/dL (74-106); Potassium 4.8 mmol/L (3.5-5.1); Sodium 138 mmol/L (136-145)
[2021-10-07] MEDS: Fluticasone NASAL SPRAY 16 GM BTL NS (08:42)
[2021-10-07] MEDS: Insulin Aspart 300 UNITS/3 ML PEN SC ×3 (08:43→17:47)
[2021-10-07] MEDS: Insulin Glargine 300 UNITS/3 ML PEN 30 UNITS SC (08:44)
[2021-10-07] MEDS: Senna TAB 1 TAB PO ×2 (08:46→19:32)
[2021-10-07] MEDS: Carvedilol 25 MG TAB PO ×2 (08:46→19:34)
[2021-10-07] MEDS: Losartan 50 MG TAB 100 MG PO (08:46)
[2021-10-07] MEDS: Furosemide 20 MG TAB PO (08:47)
[2021-10-07] MEDS: Docusate Sodium 100 MG CAP PO ×2 (08:47→19:33)
[2021-10-07] MEDS: Benzonatate 100 MG CAP PO ×3 (08:47→19:34)
[2021-10-07] MEDS: Nystatin POWDER 15 GM JAR TP ×2 (08:48→19:35)
[2021-10-07] MEDS: Normal Saline Flush 10 ML SYR IVP ×2 (08:48→19:34)
[2021-10-07] MEDS: Lachydrin 12% LOTION 225 GM BTL TP ×3 (08:48→19:34)
[2021-10-07] MEDS: Aspirin E.C. 81 MG TABEC PO ×2 (09:00→19:34)
[2021-10-07] MEDS: VANCOMYCIN/WATER (PEG) 1.25 GM/250 ML BAG IV (09:01)
[2021-10-07] MEDS: Gabapentin 600 MG TAB (09:03)
[2021-10-07] MEDS: Magnesium Oxide 400 MG TAB 800 MG PO (09:17)
[2021-10-07] MEDS: cefTRIAXone 2 GM/50 ML BAG IVPB (10:49)
[2021-10-07 10:56] VITALS: BP 108/56; PULSE 60; RESP 20; TEMP 36.7; O2SAT 97
--- NOTE | 2021-10-07 12:38 | W.PM.PROGNOT ---
Date of Service Date of service: 10/07/21 Time of Service: 12:38 Assessment and Plan Assessment and plan (1) Infection of total right knee replacement: Status: Acute Assessment and plan: washout in OR on October 04, 2021 will be follwed by Dr Steve Howell for 6 weeks of IV antibiotics through November 15, 2021. Qualifiers: Encounter type: initial encounter Qualified Code(s): T84.53XA - Infection and inflammatory reaction due to internal right knee prosthesis, initial encounter (2) Cellulitis of leg, right: Status: Resolved (3) Bacteremia: Status: Acute Assessment and plan: blood cultures positive for group c strep continue ceftriaxone 2 gm daily repeat blood cultures negative echo with no vegetation seen source likely leg/knee (4) Hypertension: Status: Chronic Assessment and plan: blood pressure stable off HCTZ (on hold for HANNAH) continue to monitor. no new medications (5) Community acquired pneumonia: Status: Resolved Assessment and plan: Left lower lobe infiltrate by CT scan. Consistent with his presentation of shortness of breath and cough. completed ceftriaxone and doxycycline day 04/03 continue i/s, acapella and pulmonary toileting (6) Acute on chronic renal failure: Status: Resolved Assessment and plan: improved . continue hold hydrochlorothiazide. renal dosing and monitor closely (7) Diabetes mellitus type 2: Status: Chronic Assessment and plan: Blood sugar is running high. We will continue his usual Lantus. continue diabetic diet, sliding scale ac/hs (8) Obstructive sleep apnea syndrome: Status: Chronic Assessment and plan: He wears nocturnal CPAP. We will see if he can bring in his home device.. (9) Discharge planning issues: Status: Acute Assessment and plan: case management following anticipate a discharge to home +/- home health services vs outpatient treatment discussed with Dr Ron Subjective Subjective Patient reports: no new complaints, feels better, tolerating liquids well, tolerating a regular diet, voiding w/o difficulty and afebrile Interval history since last seen: working with PT and doing well. no active medical issues Exam Const General: cooperative and no acute distress Nutritional Appearance: obese Orientation: alert, awake and oriented x3 HENMT Head: normal to inspection and normocephalic Chest Chest: normal inspection of the chest Resp Effort & Inspection: normal respiratory effort Auscultation: rhonchi left lower and no wheezes Cardio Rate: regular rate Rhythm: regular rhythm GI Inspection: distended and obesity Palpation: soft Auscultation: normal bowel sounds Skin General skin exam: no rashes or lesions noted and other (chronic discoloration of bilateral lower extremity, venous stasis) Extrem General: normal to inspection, full ROM and edema Laterality: bilateral (right greater than left) Right lower extremity: lower leg (knee immoblizer in place) Objective Last Vital Signs Temp 36.7 C 10/07/21 10:56 Pulse 60 10/07/21 10:56 Resp 20 10/07/21 10:56 BP 108/56 L 10/07/21 10:56 Pulse Ox 97 10/07/21 10:56 Laboratory Results - last 24 hr 10/07/21 10/07/21 06:40 06:40 WBC 6.17 RBC 3.89 L Hgb 11.2 L Hct 34.3 L MCV 88.2 MCH 28.8 MCHC 32.7 RDW 14.8 H Plt Count 212 MPV 9.4 Immature Gran % 0.6 Neutrophils % 79.4 Lymphocytes % 7.9 Monocytes % 7.8 Eosinophils % 3.7 Basophils % 0.6 Nucleated RBC % 0 Absolute Neutrophils 4.89 Absolute Lymphocytes 0.49 L Absolute Monocytes 0.48 Absolute Eosinophils 0.23 Absolute Basophils 0.04 Sodium 138 Potassium 4.8 Chloride 105 Carbon Dioxide 22.3 Anion Gap 10.7 BUN 53 H Creatinine 1.6 H Estimated GFR/1.73 m2 42.01 Glucose 128 H Calcium 8.8 PAWSS Pt Consumed Any Amount of Alcohol Within the Last 30 days OR had positive GABRIELE Upon Admission: No
--- NOTE | 2021-10-07 12:53 | PT.INTREAT ---
Date of service: 10/07/21 Time of Service: 10:16 PT Notes Visit Reasons: CAP,Hypoxia Inpatient Physical Therapy Treatment Note [facility] Date: 10/07/2021 PRECAUTIONS: Fall, WBAT R SUBJECTIVE: Kurtis is pleasant and states that he is feeling pretty OBJECTIVE: PAIN: No c/o pain BED MOBILITY/TRANSFERS Supine-sit: I with HOB flat Sit-supine: I with HOB flat Sit-stand: S Stand-sit: S Bed-Chair: S Chair-bed: S GAIT Assistive Device: FWW Weight bearing: WBAT R Assist: S Distance: 75' + 125' in a.m.; 200' in p.m. Deviation: Knee immobilizer on R, cueing for improved posture in a.m. and p.m.; seated rest x1 in .m.; B UE and LE fatigue in p.m. THEREX: Patient was instructed in a light LE stabilization program, completed in a long-sitting position, as per flow sheet. Exercises included ankle pumps, quad sets, and glute sets. ASSESSMENT: Patient tolerated session well with minimal complaint of R knee discomfort with quad setting exercise. He was able to tolerate a progression in gait distance with supervision using FWW for support. PLAN: Continue with gait training and LE stabilization activities for improved stability and safety with ambulation. TREATMENT CODE/TIME: Session 1: 26 minutes; 91595 x2 (10:16) Session 2: 21 minutes; [id number] (13:26)
[2021-10-07] MEDS: Milk of Magnesia 30 ML CUP PO (15:41)
[2021-10-07] MEDS: Enoxaparin 40 MG/0.4 ML SYR SC (15:41)
[2021-10-07 16:18] VITALS: BP 112/68; PULSE 68; RESP 20; TEMP 36.4; O2SAT 96
--- NOTE | 2021-10-07 17:18 | CMPROGNOTE_ITS ---
- If Service Date Differs Date of service: 10/07/21 Time of Service: 17:18 Care Management Progress Note S/O: Kurtis was sitting up when CM met with him today, visiting with a friend. CM discussed his options for discharge with a six week course of IV antibiotics. He opted for home IV antibiotics, which there will be a weekly copay of about $35. CM sent the orders to [facility], and will send the PICC line info, once it is placed. CM called [facility] and ordered HH services to start on Thursday. Kurtis will have his antibiotic dose tomorrow at around 10 am, and then he will be discharged home. [facility] will deliver supplies tomorrow afternoon. Kurtis is comfortable with this plan, and stated that his will pick him up when he is ready for discharge, tomorrow afternoon. SABA will continue to follow. A: Kurtis is a 76 year old male admitted to [facility] on 09/27/21 for CAP, Hypoxia P: Anticipate Kurtis will be discharged home with IV antibiotics when medically ready with new [facility] RN/PT services. SABA was previously working with [facility] for his home IV ABX and they will put the order on hold until more is known about his IV antibiotic course. He will transport via private vehicle with family. CM will continue to support discharge planning needs.
[2021-10-07] MEDS: Acetaminophen 325 MG TAB PO (18:28)
--- NOTE | 2021-10-07 19:12 | RESPIRATORY ---
Pt's own ResMed AirSense 11 AutoSet CPAP Min 15 / Max 18 cmH2O No O2 bleed in Face Mask: Medium DME: [facility]
[2021-10-07 19:20] VITALS: BP 112/63; PULSE 66; RESP 19; TEMP 36.4; O2SAT 93
[2021-10-07] MEDS: HYDROcodone 5/Acetaminophen 325 TAB PO (19:33)
[2021-10-07] MEDS: Gabapentin 300 MG CAP 900 MG PO (19:33)
--- NOTE | 2021-10-07 20:12 | W.PALPGNOTE ---
Date of service: 10/07/21 Time of Service: 07:13 Assessment and Plan Assessment and plan (1) Infection of total right knee replacement: Status: Acute Qualifiers: Encounter type: initial encounter Qualified Code(s): T84.53XA - Infection and inflammatory reaction due to internal right knee prosthesis, initial encounter (2) Sepsis: Status: Acute (3) Palliative care patient: Status: Acute Assessment and plan: Overall Kurtis is doing better since he has had care directed as his septic knee replacement. He seems to feel that he would be going home soon but knows that he will need to be on antibiotics. We did talk about goals of care. This mostly centered around him going home. He did not feel that it would be a hardship on his for him to go home. He knows he may need to go to a rehab first. CODE STATUS we did discuss his CODE STATUS. The last time I talked with him his and son-in-law were there. His plan is to hold off on making any decisions with thinking about it anymore until he is back home. Subjective Subjective Interval history since last seen: Kurtis is a 76-year-old man with cellulitis in his legs. He had he was consequently found to have a septic knee. This knee has had a replacement. He did go in and have procedure done. He states he is feeling better now. He is looking forward to going home but understands he may need to go to rehab first. ?States that he is not compliant with using the knee brace when he pivots and ambulates. Exam Narrative Exam Narrative: Kurtis is sitting in his chair. He does have a knee brace on place. His heart is rate controlled. Very little air movement. His knee and leg are not red. He does have edema. Objective Last Vital Signs Temp 97.5 F L 10/07/21 19:20 Pulse 66 10/07/21 19:20 Resp 19 10/07/21 19:20 BP 112/63 10/07/21 19:20 Pulse Ox 93 10/07/21 19:20 Laboratory Results - last 24 hr 10/07/21 10/07/21 06:40 06:40 WBC 6.17 RBC 3.89 L Hgb 11.2 L Hct 34.3 L MCV 88.2 MCH 28.8 MCHC 32.7 RDW 14.8 H Plt Count 212 MPV 9.4 Immature Gran % 0.6 Neutrophils % 79.4 Lymphocytes % 7.9 Monocytes % 7.8 Eosinophils % 3.7 Basophils % 0.6 Nucleated RBC % 0 Absolute Neutrophils 4.89 Absolute Lymphocytes 0.49 L Absolute Monocytes 0.48 Absolute Eosinophils 0.23 Absolute Basophils 0.04 Sodium 138 Potassium 4.8 Chloride 105 Carbon Dioxide 22.3 Anion Gap 10.7 BUN 53 H Creatinine 1.6 H Estimated GFR/1.73 m2 42.01 Glucose 128 H Calcium 8.8
--- NOTE | 2021-10-07 20:44 | W.PM.PROGNOT ---
Date of Service Date of service: 10/07/21 Time of Service: 12:44 Assessment and Plan Assessment and plan (1) Infection of total right knee replacement: Status: Acute Assessment and plan: Kurtis is a 76yo s/p I&D and poly exchange of the right knee for a prosthetic knee infection. This is likely strep, the organism from the blood cultures. Current knee cultres are negative. He is doing well and I expect he will do well with discharge to home with HHPT and IV Ceftriaxone. WBAT with knee immobilizer. Mepilex dressing to stay in place for 2 weeks if not soiled. F/U in 2 weeks. Qualifiers: Encounter type: initial encounter Qualified Code(s): T84.53XA - Infection and inflammatory reaction due to internal right knee prosthesis, initial encounter Subjective Subjective Interval history since last seen: Kurtis reports to be doing well. He has had improvement in his pain. He has been able to ambulate with PT and a walker. He denies fever or chills. Exam Narrative Exam Narrative: Sitting up in the chair. NAD. AAOx3. RLE dressing c/d/i. Swelling about the rihgt knee. Minimal warmth. RLE leg with mild erythema. Objective Last Vital Signs Temp 36.4 C L 10/07/21 19:20 Pulse 66 10/07/21 19:20 Resp 19 10/07/21 19:20 BP 112/63 10/07/21 19:20 Pulse Ox 93 10/07/21 19:20 Laboratory Results - last 24 hr 10/07/21 10/07/21 06:40 06:40 WBC 6.17 RBC 3.89 L Hgb 11.2 L Hct 34.3 L MCV 88.2 MCH 28.8 MCHC 32.7 RDW 14.8 H Plt Count 212 MPV 9.4 Immature Gran % 0.6 Neutrophils % 79.4 Lymphocytes % 7.9 Monocytes % 7.8 Eosinophils % 3.7 Basophils % 0.6 Nucleated RBC % 0 Absolute Neutrophils 4.89 Absolute Lymphocytes 0.49 L Absolute Monocytes 0.48 Absolute Eosinophils 0.23 Absolute Basophils 0.04 Sodium 138 Potassium 4.8 Chloride 105 Carbon Dioxide 22.3 Anion Gap 10.7 BUN 53 H Creatinine 1.6 H Estimated GFR/1.73 m2 42.01 Glucose 128 H Calcium 8.8 PAWSS Pt Consumed Any Amount of Alcohol Within the Last 30 days OR had positive GABRIELE Upon Admission: No
[2021-10-07] MEDS: Magnesium Oxide 400 MG TAB PO (22:11)
[2021-10-07 23:44] VITALS: BP 112/63; PULSE 68; RESP 19; TEMP 36.6; O2SAT 96
[2021-10-08 03:05] VITALS: BP 101/65; PULSE 65; RESP 18; TEMP 36.5; O2SAT 98
[2021-10-08] MEDS: Albuterol/Ipratropium 3 ML UPD VIAL UPD ×2 (05:17→12:01)
[2021-10-08 06:58] LABS: HCT 34.6 % (40.0-50.0); HGB 11.2 g/dL (13.5-17.5); MCH 28.1 pg (27.0-33.0); MCHC 32.4 % (32.0-36.0); MCV 86.9 fL (80-95); MPV 9.4 fL (8.0-11.0); Platelet Count 206 10^3/uL (130-400); RBC 3.98 10^6/uL (4.36-5.78); RDW 14.8 % (11.8-14.1); RDW-SD 47.8 fL; WBC 5.98 10^3/uL (4.4-10.8)
[2021-10-08 07:56] VITALS: BP 127/68; PULSE 62; RESP 18; TEMP 36.8; O2SAT 98
[2021-10-08] MEDS: Carvedilol 25 MG TAB PO (07:59)
[2021-10-08] MEDS: Gabapentin 300 MG CAP 600 MG PO (08:00)
[2021-10-08] MEDS: Losartan 50 MG TAB 100 MG PO (08:00)
[2021-10-08] MEDS: Docusate Sodium 100 MG CAP PO (08:00)
[2021-10-08] MEDS: Senna TAB 1 TAB PO (08:00)
[2021-10-08] MEDS: Benzonatate 100 MG CAP PO ×2 (08:00→13:52)
[2021-10-08] MEDS: Furosemide 20 MG TAB PO (08:01)
[2021-10-08] MEDS: Aspirin E.C. 81 MG TABEC PO (08:01)
[2021-10-08] MEDS: Lachydrin 12% LOTION 225 GM BTL TP ×2 (08:06→13:55)
[2021-10-08] MEDS: Insulin Glargine 300 UNITS/3 ML PEN 30 UNITS SC (08:07)
[2021-10-08] MEDS: Fluticasone NASAL SPRAY 16 GM BTL NS (08:07)
[2021-10-08 08:40] LABS: C-Reactive Protein 3.08 mg/dL (0.0-0.3)
--- NOTE | 2021-10-08 09:15 | DI.RAD_ITS ---
Exam(s) XR PORTABLE CHEST AP EXAM: XR PORTABLE CHEST AP CLINICAL HISTORY: post PICC insertion TECHNIQUE: 2D digital imaging was performed of the chest. One image was obtained. AP view was obta ined. COMPARISON: CR XR PORTABLE CHEST AP from 09/27/2021 FINDINGS: MEDIASTINUM: Normal. HEART: Normal. PULMONARY VASCULATURE: Normal. LUNGS: Clear. PLEURAL SPACE: No pleural effusion or pneumothorax. BONE:Within normal limits for the patient's age. OTHER FINDINGS:A left PICC line ends in place. The tip is in good position at the cavoatrial junctio n. IMPRESSION: 1. No acute pulmonary findings. 2. The tip of the left PICC line is in good position at the cavoatrial junction. DATA REPOSITORY: RADIATION DOSE DELIVERED:
--- NOTE | 2021-10-08 09:40 | CMPROGNOTE_ITS ---
- If Service Date Differs Date of service: 10/08/21 Time of Service: 09:40 Care Management Progress Note S/O: Home IV ABX are set up with [facility]. [facility] and [facility] will need Kurtis's PICC line information when it becomes available. A: Kurtis is a 76 year old male admitted to [facility] on 09/27/21 for CAP, Hypoxia P: Anticipate Kurtis will be discharged home with IV antibiotics when medically ready with new [facility] RN/PT services. Home IV ABX are set up with [facility]. He will transport via private vehicle with family. will continue to support discharge planning needs.
[2021-10-08] MEDS: Nystatin POWDER 15 GM JAR TP (09:53)
[2021-10-08 10:19] LABS: Source Nasal/Nares
[2021-10-08 11:15] LABS: COVID-19 PCR Negative (Negative)
[2021-10-08] MEDS: Magnesium Oxide 400 MG TAB 800 MG PO (11:28)
[2021-10-08] MEDS: cefTRIAXone 2 GM/50 ML BAG IVPB (11:28)
[2021-10-08] MEDS: Normal Saline 500 ML 30 ML IV (11:28)
[2021-10-08] MEDS: Insulin Aspart 300 UNITS/3 ML PEN SC (11:57)
[2021-10-08] MEDS: HYDROcodone 5/Acetaminophen 325 TAB PO (12:03)
[2021-10-08] MEDS: Normal Saline Flush 10 ML SYR IVP (13:52)
--- NOTE | 2021-10-08 14:58 | PT.INTREAT ---
Date of service: 10/08/21 Time of Service: 13:24 PT Notes Visit Reasons: CAP,Hypoxia Inpatient Physical Therapy Treatment Note [facility] Date: 10/08/2021 PRECAUTIONS: Fall, WBAT R SUBJECTIVE: Kurtis states I guess they are shipping me out today. He states that he is happy to be going home today. OBJECTIVE: Hold morning PT session, patient unavailable due to testing and PICC line placement PAIN: Patient c/o pulling in knee with quad setting exercise BED MOBILITY/TRANSFERS: Sit-stand: S Stand-sit: S GAIT: Assistive Device: FWW Weight bearing: WBAT R Assist: S Distance: 100' Deviation: Knee immobilizer THEREX: Patient was instructed in a light LE stabilization program, completed in a long-sitting position, as per flow sheet. ASSESSMENT: Patient tolerated session without complaint. PLAN: Continue with global strengthening as tolerated for improved activity tolerance. TREATMENT CODE/TIME: 19 minutes; [id number] (13:24)
--- NOTE | 2021-10-08 15:26 | DSE_ITS ---
Date of service: 10/08/21 Time of Service: 15:26 DS: Diagnosis Discharge Diagnosis (1) Infection of total right knee replacement: Status: Acute (2) Palliative care patient: Status: Acute (3) Sepsis: Status: Acute Discharge Plan Disposition Patient Disposition: HOME W/HOME HEALTH SERVICE Condition: Improving Discharge Details Reason For Visit: CAP,Hypoxia Admit Date/Time: 09/27/21 15:24 Admit Provider: Delilah Ron Attending Provider: Delilah Ron Primary Care Provider: Patrice Camejo [facility] Hospital Course: This is a 76 year old male who presented to the ED with fever and shortness of breath. His work up in the ED was concerning for CAP. He was started on ceftriaxone and doxycycline. He complete 5 days and was weaned off oxygen. His blood cultures grew strep C. His hospital course was complicated with right lower extremity edema and redness. He was denying knee pain at the time. Vancomycin was added to his antibitoic regimen. He had sustained a fall prior to admission with contusion to that knee, imaging obtained showed soft tissue swelling which was consistent with his injury, he was denying any significant knee pain. he was working with physical therapy and ambulating well. On one session with PT it was noted that his knee buckled while he was trying to stand. An orthopedic consult was placed and evaluation by Dr Wilson revealed a prosthetic knee infection. cultures obtained did not grow bacteria but he was presumed to be strep positive as his blood cultures were. He underwent I&D and poly exchange of his right knee prosthetic knee infection. postoperatively with no complications. He has been reambulated while wearing a knee immobilizer and using a walker. He has been stable medically, eating and drinking. He is cleared by PT for home health. He will need to complete a 6 week course of ceftriaxone. He will received weekly surveillance labs and will be followed by Dr Wilson. He will have nursing, PT/OT at home upon discharge. a PICC line has been placed for his daily antibiotic infusions. Home health orders have been sent: ceftriaxone 2 gm daily through Nov 15, 2021 to complete a 6 weeks course from time of washout. weekly labs on thursday while on antibiotics CBC, BMP, CRP. discharge discussed with Dr Wilson. Home Meds and New Rx's Prescriptions: New ceftriaxone in dextrose,iso-os 2 gram/50 mL Piggyback 2 g IVPB Q24H Qty: 38 RF: 0 Continued loperamide [Imodium A-D] 2 mg capsule 2 mg PO Q6H PRNRF: 0 lidocaine 5 % ointment 1 applic topical QHS RF: 0 ropinirole 1 mg tablet 1 mg PO QHS RF: 0 polyethylene glycol 3350 17 gram/dose powder 238 g PO ONCE Qty: 238 RF: 0 bisacodyl [Dulcolax (bisacodyl)] 5 mg tablet,delayed release (DR/EC) 5 mg PO ONCE Qty: 4 RF: 0 magnesium oxide 400 MG tablet See Rx Instructions .ROUTE .COMPLEX RF: 0 gabapentin 300 MG capsule 600 mg PO BID RF: 0 Lantus U-100 Insulin 100 unit/mL solution 30 unit subcut QAM RF: 0 aspirin 81 mg tablet,delayed release (DR/EC) 81 mg PO BID RF: 0 docusate sodium 100 mg capsule 100 mg PO BID RF: 0 losartan [Cozaar] 100 MG tablet 100 mg PO DAILY RF: 0 nitroglycerin [Nitrostat] 0.4 MG tablet, sublingual 0.4 mg Sublingual Q5 MIN PRN X3 PRNQty: 15 RF: 0 insulin lispro [Humalog KwikPen Insulin] 100 UNIT/ML insulin pen 30 unit SQ .SLIDING SCALE RF: 0 Jardiance 10 MG tablet 25 mg PO DAILY RF: 0 fluticasone propionate 50 mcg/actuation [place],Suspension 1 spray INTRANASAL DAILY RF: 0 hydrochlorothiazide 50 MG tablet 50 mg PO DAILY Qty: 0 RF: 0 acetaminophen 500 mg tablet 500 mg PO Q6H PRN (Reason: pain) Qty: 60 RF: 2 carvedilol 25 mg tablet 25 mg PO BID RF: 0 Discharge Instructions Instructions: Joint Incision and Drainage (DC), Joint Replacement Surgery (DC), Bacteremia (DC) Additional Instructions: Maintain PICC as directed. Take all medication as schedule. Wear knee immobilizer as directed for ambulation. Mepilex dressing to stay in place for 2 weeks if not soiled. weekly labs on Thursday, called to Dr Wilson and Dr Camejo Referrals: Yrn Wilson MD [ [facility] STAFF PHYSICIAN] - (2 weeks) Patrice Camejo MD [Primary Care Provider] - Activity:: Activity as Tolerated Equipment/Supplies:: knee immobilizer Diet:: Carb Counting Discharge Orders Discharge Orders: Discharge Order (Routine); Ordered 10/08/21 Ordered By: Denise Mathur DS: Summary Time Spent with Patient providing and/or coordinating discharge services: Greater than 30 minutes Status at Discharge Functional status at discharge: uses cane/walker Overall status at discharge: patient is progressing back to baseline Mental Status: mental status grossly normal Speech and Movement: speech and movement normal Mood: congruent mood Affect: normal affect Exam Const General: cooperative and no acute distress Nutritional Appearance: obese Orientation: alert, awake and oriented x3 HENMT Head: normal to inspection and normocephalic Chest Chest: normal inspection of the chest Resp Effort & Inspection: normal respiratory effort Auscultation: rhonchi left lower and no wheezes Cardio Rate: regular rate Rhythm: regular rhythm GI Inspection: distended and obesity Palpation: soft Auscultation: normal bowel sounds Skin General skin exam: no rashes or lesions noted and other (chronic discoloration of bilateral lower extremity, venous stasis) Lesions: lesion noted (right landers) Rashes: rashes noted (right lower extremity, improved since yesterday) Extrem General: normal to inspection, full ROM and edema Laterality: bilateral (right greater than left) Right lower extremity: lower leg (knee immoblizer in place) Psych Mental Status: mental status grossly normal Speech and Movement: speech and movement normal Mood: congruent mood Affect: normal affect DS: Data Vitals/I&O Vitals and I&O: Vital Signs Temperature 36.8 C 10/08/21 07:56 Temperature Source Tympanic 10/08/21 07:56 Pulse 62 10/08/21 07:56 Pulse Rhythm Regular 10/08/21 11:02 Pulse 85 09/27/21 17:56 Respiratory Rate 18 10/08/21 07:56 Respiratory Effort 10/08/21 11:02 Respiratory Depth Normal 10/08/21 11:02 Respiratory Pattern Normal 10/08/21 11:02 Blood Pressure 127/68 10/08/21 07:56 Blood Pressure Mean 62 09/27/21 17:56 Blood Pressure Position Sitting 09/27/21 10:52 Pulse Oximetry 98 10/08/21 07:56 Respiratory End-tidal CO2 32 10/04/21 15:15 Oxygen Delivery Method Room Air 10/08/21 07:56 Oxygen Flow Rate 0 11/09/21 07:56 Fraction of Inspired Oxygen (FIO2) 21 10/07/21 19:09 Pain Level 4 10/08/21 12:03 Comment 10/04/21 23:29 Intake & Output 10/07/21 10/08/21 10/08/21 23:59 11:59 23:59 Intake Total 20 / 430 1000 / 1000 Output Total 1974 3350 700 / 700 Balance -1955 / -2920 -700 / 300 1000 / 300 Weight 121.7 kg Intake: IV 70 Oral 1000 / 1000 Output: Urine 1974 700 / 700 Other: Urine Color Yellow Yellow Urine Appearance Clear Clear Urine Odor Normal Stool Size Moderate Stool Characteristics Soft Formed Voiding Methods Urinal Urinal Data Completed and Pending Labs on day of discharge: Labs from last 24 hours 10/08/21 10/08/21 10/08/21 10:00 06:30 06:30 WBC 5.98 RBC 3.98 L Hgb 11.2 L Hct 34.6 L MCV 86.9 MCH 28.1 MCHC 32.4 RDW 14.8 H Plt Count 206 MPV 9.4 C-Reactive Protein 3.08 H COVID-19 Source Nasal/Nares SARS-CoV-2 (PCR) Negative Preliminary micro results at discharge 10/04/21 12:38 Surgical Culture - Preliminary Knee - Right Joint 10/04/21 12:30 Anaerobic Culture - Preliminary Knee - Right Joint [facility] Medical History Abnormal LFTs Secondary to fartty infiltrate of the liver. Arthritis CAD (coronary artery disease) Cellulitis RIGHT LOWER LEG Chronic lower back pain Diabetes Hearing loss History of seizures as a child Hx of myocardial infarction 10/2011 STRESS TEST COMPLETED 11/29/2019 Hyperlipidemia Hypertension Osteoarthritis Renal insufficiency Sleep apnea with use of continuous positive airway pressure (CPAP) Tubulovillous adenoma polyp of colon Noted by colonoscopy. 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 Wilson s/p debridement and poly exchange 02/10/20 History of total right knee replacement (01/16/21) Family History Maternal Aunt Colon cancer Maternal Aunt Colon cancer Father , 70s Heart disease Social History Smoking/Tobacco Use Status: Never Smoking risk assessment performed?: Yes Alcohol Intake: never Drug use: Never Substance use type: does not use Do you feel safe at home: Yes Do you feel safe in your relationship?: Yes
[2021-10-08 15:43] VITALS: BP 121/67; PULSE 62; RESP 18; TEMP 36.8; O2SAT 97
--- NOTE | 2021-10-08 16:05 | PDOC.HHF2F ---
Home Health Certification Home Health Certification: 1. Encounter Date and Reason I certify that Kurtis Alanis was seen by Denise Mathur on 10/08/21 and that I had a [id number] encounter with this patient that meets the physician face to face encounter requirements. 2. Clinical Findings Supporting Skilled Need and Homebound Status I certify that home health services are medically necessary, include either intermittent usp and/or physical/speech therapy, and that this patient is homebound in that absences from the home require considerable and taxing effort and are infrequent or of short duration, or are attributable to the need to receive medical care. [X] (a) Attached documentation from encounter provides clinical findings supporting skilled need and homebound status (including what assistance patient requires to leave the home). The encounter with the patient was in whole, or in part, for the following medical condition, which is the primary reason for home health care: CAP,Hypoxia Residential: routine nursing assessment and treatment. Mepilex dressing to stay in place for 2 weeks if not soiled. routine PICC line care. daily IV antibiotics- ceftriaxone 2 gm daily through Nov 15, 2021. weekly labs on Thursday CBC, BMP, CRP Physical Therapy: WBAT with knee immobilizer. walker for gait stability and safety Homebound: unable to safely leave the house unattended d/t inability to negotiate stairs d/t knee immobilizaiton, decreased strength and endurance. 3. Certification and Authentication I certify that I composed the above information based on my clinical judgment relating to this patient's medical condition and, if applicable, clinical findings communicated to me by the NPP or inpatient physician who performed the Home Health Referral. All further orders will be obtained through Dr [facility], DR Camejo PCP
--- NOTE | 2021-10-08 17:46 | PDOC.CMDIS ---
- If Service Date Differs Date of service: 10/08/21 Time of Service: 17:46 LACE Index Scoring Tool - Questions: Length of Stay (in days): 7 - 13 Acuity (Admit via E.D.?): Yes Comorbidities: Diabetes w/o Complication, Congestive Heart Failure, Mild Liver/Renal Disease E.D. Visits: 2 - Answers: Total Score: 15 Risk of Readmission: High Risk Care Management Discharge Reason for Hospitalization: CAP, Hypoxia Discharge Plan: Discharge home with Home IV ABX through [facility]. Kurtis will have new [facility] RN/PT services and transport via private vehicle with family. He will follow up with community providers and discharge plan of care as prescribed. Patient/Family Education Needs: Review discharge instructions, limitations and plan to follow up with community providers. ask me three. Services Needed at Discharge: DME Agency (Home IV ABX through [facility]. Supplies were delivered prior to discharge.), Home Health Care Services ([facility] RN/PT)
--- NOTE | 2021-10-08 18:50 | INDS_ITS ---
Date of service: 10/18/21 PT Notes Visit Reasons: CAP,Hypoxia Physical Therapy Inpatient Discharge Summary Date: 10/08/2021 Dates of Service: 10/05/2021 through 10/08/2021 This is a clinical summary of care provided for the duration of dates listed above. No charge was made in the completion of this documentation. Referring Doctor: Yrn Wilson PT Orders: PT CONSULT: Status post right TKA I&D, WBAT with knee immobilizer, may remove KI in bed Precautions: Fall risk, standard Patient Profile/Admitting Diagnosis: 76-year-old male status post a right TKA I&D on 10/04/2021, due to infection. Admitted for what was presumed to be pneumonia but also a right lower extremity cellulitis, which developed into strep bacterium. He had recently been in outpatient physical therapy for balance and fall risk, due to progressive right LE. Has bilateral dropfoot. Past Medical History: Medical History Abnormal LFTs Secondary to fartty infiltrate of the liver. Arthritis CAD (coronary artery disease) Cellulitis RIGHT LOWER LEG Chronic lower back pain Diabetes Hearing loss History of seizures as a child Hx of myocardial infarction 10/2011 STRESS TEST COMPLETED 11/29/2019 Hyperlipidemia Hypertension Osteoarthritis Renal insufficiency Sleep apnea with use of continuous positive airway pressure (CPAP) Tubulovillous adenoma polyp of colon Noted by colonoscopy. 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 Wilson s/p debridement and poly exchange 02/10/20 History of total right knee replacement (01/16/21) Social History/Home Situation: Lives with in a private home with a ramp to enter. will be his primary support. 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 Independent with SPC at baseline. Walk-in shower Equipment Owned/DME: Has axillary cruthces, FWW, and SPC, grab bars in bathroom. Electric recliner chair to help with sit to stand Subjective: NT. See most recent SURGICAL INSTRUMENT REPAIR SPECIALIST notes. Objective: General Observation: NT. See most recent SURGICAL INSTRUMENT REPAIR SPECIALIST notes. Mental Status: NT. See most recent SURGICAL INSTRUMENT REPAIR SPECIALIST notes. Pain: NT. See most recent SURGICAL INSTRUMENT REPAIR SPECIALIST notes. Vital Signs: NT. See most recent SURGICAL INSTRUMENT REPAIR SPECIALIST notes ROM: Right Upper Extremity: Grossly WFL Left Upper Extremity: Grossly WFL Right Lower Extremity: Grossly WFL, but knee not evaluated due to KI placed. Lacking active dorsiflexion, of about -5 degrees Left Lower Extremity: Grossly WFL, lacking active dorsiflexion of about -5 degrees Strength: Right Upper Extremity: Grossly 4/5 Left Upper Extremity: Grossly 4/5 Right Lower Extremity: Not assessed, distal ankle plantarflexion 5/5, inversion dorsiflexion 3/5 in available range of motion as noted above Left Lower Extremity: Grossly 5/5, with exception of ankle dorsiflexion limited 3/5 in available range of motion as noted above Sensation: Intact bilateral LEs Bed Mobility/Transfers: Sit to stand supervision Stand to sit supervision Stand to sit supervision Gait: FWW for 200 feet with supervision and KI on the R LE. Balance: Static Sitting: Good Dynamic Sitting: Good Static Standing: Fair Dynamic Standing: Fair Assessment: Patient is a 76 year old male, requiring PT intervention to attend to improve functional difficulties with sit to stand, stand to sit, ambulation, and education on proper transfer performance and use of walker for safety, to return him home with supportive . He will be appropriate for discharge home with home health PT service, and currently demonstrates no safety and performance capabilities to tolerate discharge home as long as he has available for support. Goals: Goals X1 week 1. Supine-Sit independent MET 2. Sit-Supine independent MET 3. Sit-Stand supervision from high chair with RW MET 4. Stand-Sit supervision with high chair with RW MET 5. Bed-Chair supervision with RW MET 6. Chair-Bed supervision with RW MET 7. Gait 20 feet with RW, supervision MET 8. Independent with home exercise program NOT MET DISCHARGE RECOMMENDATIONS: [] Home with no services [] [X] Home with services. Patient will benefit from home health PT services in order to progress mobility level using least restrictive assistive ambulatory device, assess home safety, identify additional equipment needs, and establish a functional maintenance program that will increase ability of patient to remain at home. [] Home with outpatient PT [] [] SNF for continued rehabilitation [] [] Special[facility] Development Consultant Care [] [] SNF versus LTC based on ability to participate and progress [] TREATMENT CODE/TIME: NC Thank you for the opportunity to participate in the care of this patient. Nargis Bernabe PT, DPT, CLT [facility] [place], [place]
== END 2021-10-08 16:44 | disposition home health service (06) | DRG 853 ==
LOC: ER 16:52 → MS 18:11
PROVIDERS: Family Medicine; Internal Medicine; Nurse Practitioner Acute Care; Nurse Practitioner Family; Student in an Organized Health Care Education/Training Program; Admitting Provider Internal Medicine; Emergency Provider Student in an Organized Health Care Education/Training Program; PCP Internal Medicine; Visit Provider Internal Medicine
PROC: 0SPW0JZ Removal of Synthetic Substitute from Left Knee Joint, Tibial Surface, Open Approach (ICD-10-PCS; CPT 27486; principal; 2021-10-04 12:00)
PROC: 0SPW0JZ Removal of Synthetic Substitute from Left Knee Joint, Tibial Surface, Open Approach (ICD-10-PCS; CPT 27486; 2021-10-04 12:00)
DX: A40.8 Other streptococcal sepsis (principal); J18.9 Pneumonia, unspecified organism; T84.53XA Infection and inflammatory reaction due to internal right knee prosthesis, initial encounter; L03.115 Cellulitis of right lower limb; N17.9 Acute kidney failure, unspecified; Z68.41 Body mass index [BMI] 40.0-44.9, adult; R09.02 Hypoxemia; E11.65 Type 2 diabetes mellitus with hyperglycemia; Z79.4 Long term (current) use of insulin; G47.33 Obstructive sleep apnea (adult) (pediatric); K76.0 Fatty (change of) liver, not elsewhere classified; I25.10 Atherosclerotic heart disease of native coronary artery without angina pectoris; G89.29 Other chronic pain; M54.50 Low back pain, unspecified; I25.2 Old myocardial infarction; E78.5 Hyperlipidemia, unspecified; I12.9 Hypertensive chronic kidney disease with stage 1 through stage 4 chronic kidney disease, or unspecified chronic kidney disease; I87.2 Venous insufficiency (chronic) (peripheral); Z95.5 Presence of coronary angioplasty implant and graft; Z96.651 Presence of right artificial knee joint; E11.22 Type 2 diabetes mellitus with diabetic chronic kidney disease; Z20.822 Contact with and (suspected) exposure to COVID-19; N18.9 Chronic kidney disease, unspecified; E66.9 Obesity, unspecified
CPT/HCPCS: 20610; 27486; 36410; 36415; 36569; 71275; 73562; 80048; 80053; 82805; 85027; 85652; 87040; 87077; 87449; 87635; 93005; 93306; 96361; 96365; 96367; 97110; 97162; 97530; 99222; 99231; 99285; J1650; 70450; 71045; 73590; 80202; 81003; 82140; 83036; 83605; 83735; 83880; 84484; 85025; 85379; 85610; 85730; 86140; 87070; 87075; 87186; 87205; 87899; 89051; 93010; 93971; 94640; 94667; 99223; 99232; 99233; 99239; J1885; J1941; J2001; J2405; J2704; J3010; J7620

== ENCOUNTER 2021-10-14 14:16 | Outpatient (REF) | payer MEDICARE, SELFPAY ==
[2021-10-14 16:38] LABS: Abs Immature Grans 0.02 10^3/uL (0.0-0.06); Absolute Basophil Count 0.04 10^3/uL (0.0-0.2); Absolute Eosinophil Count 0.12 10^3/uL (0.0-0.7); Absolute Lymphocyte Count 0.45 10^3/uL (1.2-3.4); Absolute Neutrophil Count 3.87 10^3/uL (1.2-6.7); Basophils % 0.8; Eosinophils % 2.4; HCT 32.4 % (40.0-50.0); HGB 10.7 g/dL (13.5-17.5); Immature Grans % 0.4; Lymphocytes % 9.2; MCH 28.9 pg (27.0-33.0); MCV 87.6 fL (80-95); MPV 9.7 fL (8.0-11.0); Monocytes % 8.2; Nucleated RBC 0 %; Platelet Count 210 10^3/uL (130-400); RDW 14.9 % (11.8-14.1); RDW-SD 47.8 fL
[2021-10-14 17:36] LABS: BUN 50 mg/dL (7-18); CREATININE 1.3 mg/dL (0.70-1.30); Calcium 8.3 mg/dL (8.5-10.1); Chloride 103 mmol/L (98-107); Estimated GFR 53.39 (mL/min/1.73m2); Glucose 208 mg/dL (74-106); Potassium 4.8 mmol/L (3.5-5.1); Sodium 138 mmol/L (136-145)
== END 2021-10-14 14:17 | disposition home or self-care (01) ==
LOC: LBN 14:16
PROVIDERS: PCP Internal Medicine; Visit Provider Student in an Organized Health Care Education/Training Program
DX: M25.561 Pain in right knee (principal); T84.53XD Infection and inflammatory reaction due to internal right knee prosthesis, subsequent encounter
CPT/HCPCS: 80048; 85025; 86140

== ENCOUNTER 2021-10-15 13:40 | Outpatient (RCR) | payer MEDICARE, SELFPAY ==
[2021-10-15] MEDS: Normal Saline Flush 10 ML SYR IVP (14:46)
== END 2021-10-29 23:59 | disposition home or self-care (01) ==
LOC: INF 13:40
PROVIDERS: PCP Internal Medicine; Visit Provider Internal Medicine
DX: Z45.2 Encounter for adjustment and management of vascular access device (principal)

== ENCOUNTER → 2021-10-21 13:07 | Outpatient (BNVA) | payer MEDICARE, SELFPAY | PROVIDERS: PCP Internal Medicine; Referring Provider Internal Medicine; Visit Provider Student in an Organized Health Care Education/Training Program | DX: Z47.1 Aftercare following joint replacement surgery (principal); T84.53XD Infection and inflammatory reaction due to internal right knee prosthesis, subsequent encounter; Z96.651 Presence of right artificial knee joint ==

== ENCOUNTER 2021-10-21 17:37 | Outpatient (REF) | payer MEDICARE, SELFPAY ==
[2021-10-21 19:33] LABS: Abs Immature Grans 0.02 10^3/uL (0.0-0.06); Absolute Basophil Count 0.04 10^3/uL (0.0-0.2); Absolute Eosinophil Count 0.24 10^3/uL (0.0-0.7); Absolute Lymphocyte Count 0.42 10^3/uL (1.2-3.4); Absolute Monocyte Count 0.47 10^3/uL (0.1-0.8); Absolute Neutrophil Count 3.34 10^3/uL (1.2-6.7); Basophils % 0.9; Eosinophils % 5.3; HCT 34.5 % (40.0-50.0); HGB 10.9 g/dL (13.5-17.5); Immature Grans % 0.4; Lymphocytes % 9.3; MCH 28.2 pg (27.0-33.0); MCHC 31.6 % (32.0-36.0); MCV 89.4 fL (80-95); MPV 9.9 fL (8.0-11.0); Monocytes % 10.4; Neutrophils % 73.7; Nucleated RBC 0 %; Platelet Count 147 10^3/uL (130-400); RBC 3.86 10^6/uL (4.36-5.78); RDW 15.4 % (11.8-14.1); WBC 4.53 10^3/uL (4.4-10.8)
[2021-10-21 19:42] LABS: Anion Gap 7.8 mmol/L (3-11); BUN 23 mg/dL (7-18); C-Reactive Protein 0.68 mg/dL (0.0-0.3); CO2 29.2 mmol/L (21.0-32.0); Chloride 103 mmol/L (98-107); Glucose 96 mg/dL (74-106); Potassium 4.7 mmol/L (3.5-5.1); Sodium 140 mmol/L (136-145)
== END 2021-10-21 17:38 | disposition home or self-care (01) ==
LOC: LBN 17:37
PROVIDERS: PCP Internal Medicine; Visit Provider Student in an Organized Health Care Education/Training Program
DX: A41.59 Other Gram-negative sepsis (principal); T84.53XD Infection and inflammatory reaction due to internal right knee prosthesis, subsequent encounter; Z79.2 Long term (current) use of antibiotics; Z96.652 Presence of left artificial knee joint
CPT/HCPCS: 80048; 85025; 86140

== ENCOUNTER 2021-10-28 13:07 | Outpatient (REF) | payer MEDICARE, SELFPAY ==
[2021-10-28 18:01] LABS: Anion Gap 9.9 mmol/L (3-11); BUN 33 mg/dL (7-18); C-Reactive Protein 0.74 mg/dL (0.0-0.3); CO2 27.1 mmol/L (21.0-32.0); CREATININE 1.1 mg/dL (0.70-1.30); Calcium 8.9 mg/dL (8.5-10.1); Chloride 102 mmol/L (98-107); Glucose 117 mg/dL (74-106); Potassium 4.6 mmol/L (3.5-5.1); Sodium 139 mmol/L (136-145)
[2021-10-28 18:21] LABS: Abs Immature Grans 0.01 10^3/uL (0.0-0.06); Absolute Basophil Count 0.02 10^3/uL (0.0-0.2); Absolute Eosinophil Count 0.21 10^3/uL (0.0-0.7); Absolute Lymphocyte Count 0.37 10^3/uL (1.2-3.4); Absolute Monocyte Count 0.56 10^3/uL (0.1-0.8); Absolute Neutrophil Count 2.99 10^3/uL (1.2-6.7); Basophils % 0.5; HCT 35.3 % (40.0-50.0); HGB 11.2 g/dL (13.5-17.5); Immature Grans % 0.2; Lymphocytes % 8.9; MCH 29.1 pg (27.0-33.0); MCHC 31.7 % (32.0-36.0); MCV 91.7 fL (80-95); MPV 9.7 fL (8.0-11.0); Monocytes % 13.5; Neutrophils % 71.9; Nucleated RBC 0 %; Platelet Count 138 10^3/uL (130-400); RBC 3.85 10^6/uL (4.36-5.78); RDW 15.6 % (11.8-14.1); RDW-SD 52.4 fL; WBC 4.16 10^3/uL (4.4-10.8)
== END 2021-10-28 13:08 | disposition home or self-care (01) ==
LOC: LBN 13:07
PROVIDERS: Student in an Organized Health Care Education/Training Program; PCP Internal Medicine; Visit Provider Internal Medicine
DX: T84.53XD Infection and inflammatory reaction due to internal right knee prosthesis, subsequent encounter (principal); A41.59 Other Gram-negative sepsis; Z79.2 Long term (current) use of antibiotics
CPT/HCPCS: 80048; 85025; 86140

== ENCOUNTER 2021-11-04 12:44 | Outpatient (REF) | payer MEDICARE, SELFPAY ==
[2021-11-04 16:04] LABS: Abs Immature Grans 0.01 10^3/uL (0.0-0.06); Absolute Basophil Count 0.03 10^3/uL (0.0-0.2); Absolute Eosinophil Count 0.18 10^3/uL (0.0-0.7); Absolute Lymphocyte Count 0.37 10^3/uL (1.2-3.4); Absolute Monocyte Count 0.54 10^3/uL (0.1-0.8); Absolute Neutrophil Count 2.98 10^3/uL (1.2-6.7); Basophils % 0.7; Eosinophils % 4.4; HCT 36.6 % (40.0-50.0); HGB 11.7 g/dL (13.5-17.5); Immature Grans % 0.2; MCH 28.5 pg (27.0-33.0); MCV 89.1 fL (80-95); Monocytes % 13.1; Neutrophils % 72.6; Nucleated RBC 0 %; Platelet Count 152 10^3/uL (130-400); RBC 4.11 10^6/uL (4.36-5.78); RDW 15.2 % (11.8-14.1); RDW-SD 49.9 fL; WBC 4.11 10^3/uL (4.4-10.8)
[2021-11-04 16:14] LABS: Anion Gap 8.2 mmol/L (3-11); BUN 38 mg/dL (7-18); C-Reactive Protein 0.64 mg/dL (0.0-0.3); CO2 27.8 mmol/L (21.0-32.0); CREATININE 1.1 mg/dL (0.70-1.30); Calcium 8.9 mg/dL (8.5-10.1); Chloride 103 mmol/L (98-107); Glucose 148 mg/dL (74-106); Potassium 4.2 mmol/L (3.5-5.1); Sodium 139 mmol/L (136-145)
== END 2021-11-04 12:45 | disposition home or self-care (01) ==
LOC: LBN 12:44
PROVIDERS: PCP Internal Medicine; Visit Provider Internal Medicine
DX: A41.59 Other Gram-negative sepsis (principal); Z79.2 Long term (current) use of antibiotics; T84.53XD Infection and inflammatory reaction due to internal right knee prosthesis, subsequent encounter
CPT/HCPCS: 80048; 85025; 86140

== ENCOUNTER 2021-11-11 19:17 | Outpatient (REF) | payer MEDICARE, SELFPAY ==
[2021-11-11 14:13] LABS: Abs Immature Grans 0.02 10^3/uL (0.0-0.06); Absolute Basophil Count 0.02 10^3/uL (0.0-0.2); Absolute Eosinophil Count 0.14 10^3/uL (0.0-0.7); Absolute Lymphocyte Count 0.38 10^3/uL (1.2-3.4); Absolute Monocyte Count 0.53 10^3/uL (0.1-0.8); Absolute Neutrophil Count 3.25 10^3/uL (1.2-6.7); Basophils % 0.5; Eosinophils % 3.2; HGB 11.9 g/dL (13.5-17.5); Immature Grans % 0.5; Lymphocytes % 8.8; MCH 28.4 pg (27.0-33.0); MCHC 32.2 % (32.0-36.0); MCV 88.3 fL (80-95); MPV 10.3 fL (8.0-11.0); Monocytes % 12.2; Neutrophils % 74.8; Nucleated RBC 0 %; Platelet Count 150 10^3/uL (130-400); RBC 4.19 10^6/uL (4.36-5.78); RDW 14.6 % (11.8-14.1); RDW-SD 47.4 fL; WBC 4.34 10^3/uL (4.4-10.8)
[2021-11-11 14:39] LABS: Anion Gap 8.9 mmol/L (3-11); BUN 37 mg/dL (7-18); C-Reactive Protein 0.42 mg/dL (0.0-0.3); CO2 26.1 mmol/L (21.0-32.0); CREATININE 1.2 mg/dL (0.70-1.30); Chloride 103 mmol/L (98-107); Estimated GFR 58.56 (mL/min/1.73m2); Glucose 158 mg/dL (74-106); Potassium 4.7 mmol/L (3.5-5.1); Sodium 138 mmol/L (136-145)
== END 2021-11-11 19:18 | disposition home or self-care (01) ==
LOC: LBN 19:17
PROVIDERS: PCP Internal Medicine; Visit Provider Internal Medicine
DX: T84.53XD Infection and inflammatory reaction due to internal right knee prosthesis, subsequent encounter (principal); A41.59 Other Gram-negative sepsis; Z79.2 Long term (current) use of antibiotics
CPT/HCPCS: 80048; 85025; 86140

== ENCOUNTER → 2021-11-18 14:10 | Outpatient (BNVA) | payer MEDICARE, SELFPAY | PROVIDERS: PCP Internal Medicine; Visit Provider Student in an Organized Health Care Education/Training Program | DX: Z47.1 Aftercare following joint replacement surgery (principal); T84.53XD Infection and inflammatory reaction due to internal right knee prosthesis, subsequent encounter; Z96.651 Presence of right artificial knee joint ==

== ENCOUNTER 2021-11-19 02:34 | Outpatient (CLI) | payer MEDICARE, SELFPAY ==
[2021-11-19 13:38] LABS: ESR 8 mm/hr (0-20)
[2021-11-19 14:41] LABS: Anion Gap 8.2 mmol/L (3-11); BUN 34 mg/dL (7-18); C-Reactive Protein 0.62 mg/dL (0.0-0.3); CO2 26.8 mmol/L (21.0-32.0); CREATININE 1.4 mg/dL (0.70-1.30); Chloride 104 mmol/L (98-107); Estimated GFR 49.01 (mL/min/1.73m2); Glucose 136 mg/dL (74-106); Sodium 139 mmol/L (136-145)
== END 2021-11-19 02:35 | disposition home or self-care (01) ==
LOC: LBO 02:34
PROVIDERS: PCP Internal Medicine; Visit Provider Student in an Organized Health Care Education/Training Program
DX: T84.53XA Infection and inflammatory reaction due to internal right knee prosthesis, initial encounter (principal)
CPT/HCPCS: 36415; 80048; 85652; 86140

== ENCOUNTER → 2021-12-30 15:09 | Outpatient (BNVA) | payer MEDICARE, SELFPAY | PROVIDERS: PCP Internal Medicine; Visit Provider Student in an Organized Health Care Education/Training Program | DX: T84.53XD Infection and inflammatory reaction due to internal right knee prosthesis, subsequent encounter (principal) ==

== ENCOUNTER 2022-01-20 09:34 | Outpatient (CLI) | payer MEDICARE, SELFPAY ==
--- NOTE | 2022-01-20 09:15 | DI.RAD_ITS ---
Exam(s) XR KNEE RT 2V AP,LAT EXAM: XR KNEE RT 2V AP,LAT CLINICAL HISTORY: annual f/u R TKA. TECHNIQUE: 2D digital imaging was performed. COMPARISON: No exams were available for comparison FINDINGS: Position alignment of the components of the prosthesis remain stable. On the lateral view there is a thin bone density measuring 10 x 1 millimeter parallel to the anterior cortex of the distal femoral diaphysis, not previously present. There does not appear to be an omin ous bone lesion at this level. May represent dystrophic calcification. The amount of previously described anterior soft tissue swelling has somewhat decreased but not compl etely resolved. There is a suggestion of a joint effusion. Again noted is evidence of patellar resurfacing. No patellar fracture. IMPRESSION: DATA REPOSITORY: RADIATION DOSE DELIVERED:
== END 2022-01-20 09:35 | disposition home or self-care (01) ==
LOC: DIORS 09:34
PROVIDERS: PCP Family Medicine; Referring Provider Family Medicine; Visit Provider Student in an Organized Health Care Education/Training Program
DX: Z96.651 Presence of right artificial knee joint (principal); M25.461 Effusion, right knee; T84.53XA Infection and inflammatory reaction due to internal right knee prosthesis, initial encounter
CPT/HCPCS: 73560

== ENCOUNTER 2022-06-04 18:49 | Outpatient (REF) | payer MEDICARE, SELFPAY ==
[2022-06-04 16:00] LABS: HCT 41.3 % (40.0-50.0); HGB 13.5 g/dL (13.5-17.5); MCH 27.5 pg (27.0-33.0); MCHC 32.7 % (32.0-36.0); MCV 84 fL (80-95); MPV 10.1 fL (8.0-11.0); Platelet Count 130 10^3/uL (130-400); RBC 4.91 10^6/uL (4.36-5.78); RDW 15.4 % (11.8-14.1); RDW-SD 47.1 fL; WBC 5.94 10^3/uL (4.4-10.8)
[2022-06-04 16:31] LABS: ALT 36 U/L (16-63); AST 38 U/L (15-37); Alkaline Phosphatase 129 U/L (46-116); Anion Gap 10.9 mmol/L (3-11); BUN 42 mg/dL (7-18); Bilirubin, Total 0.5 mg/dL (0.2-1.0); CO2 27.1 mmol/L (21.0-32.0); CREATININE 1.3 mg/dL (0.70-1.30); Chloride 101 mmol/L (98-107); Estimated GFR 53.25 (mL/min/1.73m2); Folate 6.2 ng/mL (8.6-20.0); Glucose 84 mg/dL (74-106); Potassium 5.1 mmol/L (3.5-5.1); Sodium 139 mmol/L (136-145); Total Protein 6.9 g/dL (6.4-8.2); Vitamin B12 253 pg/mL (193-986)
== END 2022-06-04 18:50 | disposition home or self-care (01) ==
LOC: NCHCN 18:49
PROVIDERS: PCP Family Medicine; Visit Provider Family Medicine
DX: E11.9 Type 2 diabetes mellitus without complications (principal); I10 Essential (primary) hypertension; R20.2 Paresthesia of skin
CPT/HCPCS: 80053; 85027; 82607; 82746; 84443

== ENCOUNTER → 2022-07-21 08:15 | Outpatient (BNVA) | payer MEDICARE, SELFPAY | PROVIDERS: PCP Family Medicine; Referring Provider Family Medicine; Visit Provider Psychiatry & Neurology Neurology | DX: E11.42 Type 2 diabetes mellitus with diabetic polyneuropathy (principal); Z79.4 Long term (current) use of insulin; G89.29 Other chronic pain; M54.42 Lumbago with sciatica, left side; E53.8 Deficiency of other specified B group vitamins; M21.371 Foot drop, right foot; M21.372 Foot drop, left foot; R20.0 Anesthesia of skin; L03.115 Cellulitis of right lower limb | CPT/HCPCS: 99214 ==

== ENCOUNTER 2022-07-23 06:49 | Emergency (ER) | payer MEDICARE, SELFPAY ==
[2022-07-23 06:53] VITALS: BP 161/68; PULSE 66; RESP 17; TEMP 36.6; O2SAT 97
--- NOTE | 2022-07-23 07:52 | ED.GENADUL_ITS ---
Discharge Plan Disposition Patient Disposition: HOME Condition: Stable Discharge Details Clinical Impression: Closed fracture of fourth toe of right foot, Closed fracture of fifth toe of right foot Primary Care Provider: Cameron Mcarthur ED Provider: Bolivar Luong Home Meds and New Rx's Prescriptions: Continued loperamide [Imodium A-D] 2 mg capsule 2 mg PO Q6H PRN lidocaine 5 % ointment 1 applic topical QHS insulin glargine [Lantus U-100 Insulin] 100 unit/mL solution 40 unit subcut QHS baclofen 5 mg tablet 5 mg PO QHS ropinirole 1 mg tablet 4 mg PO QHS Rx Instructions: administer 1-3 hours before bedtime magnesium oxide 400 mg (241.3 mg magnesium) tablet 800 mg PO DAILY magnesium oxide 400 mg magnesium tablet 400 mg PO QPM doxazosin [Cardura] 4 mg tablet 4 mg PO DAILY aspirin 81 mg capsule 81 mg PO DAILY pantoprazole 40 mg tablet,delayed release (DR/EC) 40 mg PO DAILY gabapentin 300 mg capsule See Rx Instructions PO DAILY Rx Instructions: take 2 capsules by mouth every morning and and 3 capsules every evening PO daily; penicillin V potassium 500 mg tablet See Rx Instructions .ROUTE .COMPLEX Qty: 90 6RF Dose Instruction: TAKE 1 TABLET(500 MG) BY MOUTH THREE TIMES DAILY Rx Instructions: TAKE 1 TABLET(500 MG) BY MOUTH THREE TIMES DAILY losartan [Cozaar] 100 MG tablet 100 mg PO DAILY nitroglycerin [Nitrostat] 0.4 MG tablet, sublingual 0.4 mg Sublingual Q5 MIN PRN X3 PRNQty: 15 0RF Label Comments: has never used insulin lispro [Humalog KwikPen Insulin] 100 UNIT/ML insulin pen 30 unit SQ .SLIDING SCALE Jardiance 10 MG tablet 25 mg PO DAILY fluticasone propionate 50 mcg/actuation [place],Suspension 1 spray INTRANASAL DAILY hydrochlorothiazide 50 MG tablet 50 mg PO DAILY Qty: 0 0RF acetaminophen 500 mg tablet 500 mg PO Q6H PRN (Reason: pain) Qty: 60 2RF carvedilol 25 mg tablet 25 mg PO BID No Action apple cider vinegar 300 mg tablet PO BID Discharge Instructions Instructions: Toe Fracture (ED) Additional Instructions: Your x-rays showed fractures of the fourth toe and fifth toe of the right foot. Also of note are radiopaque foreign bodies at the base of the right second toe. Please wear postoperative shoe for splinting over the next 2 weeks. Monitor your feet closely for signs of infection including increased warmth, swelling, discharge or redness. Should any of these signs or symptoms develop, please seek care immediately. Patient sure to follow-up with podiatry. Call today to schedule timely follow- up. Return to the emergency department immediately for any worsening or new concerning symptoms. Referrals: Cameron Mcarthur MD [Primary Care Provider] - Raji Tee DPM [[facility] STAFF PHYSICIAN] - Discharge Data Discharge Date/Time-TO BE ENTERED AT DEPARTURE: 07/23/22 09:00 Medical Decision Making 77-year-old male with history of insulin-dependent diabetes, chronic lack of sensation in his feet, here with injury to right third and fourth toes yesterday, now with swelling, ecchymosis, and small abrasion of the toes. No sign infection. X-ray of the right third and fourth toes was interpreted by radiology: There are now fractures in the proximal phalanx of the 5th toe and in the distal phalanx of the 4th toe, not previously present.? No other foot fractures identified.? No diastasis of the Lisfranc joint. There are 2 adjacent pin like foreign metallic bodies in the soft tissues around the base of the high 2nd toe, slightly medial to the base of the proximal phalanx as seen on the AP view.? The lateral view is a cone down view and is therefore not possible to accurately locate these 2 adjacent metallic foreign bodies. Three views of the right 4th and 5th toes reveal a fracture in the proximal aspect of the proximal phalanx of the 5th toe.? Some callus formation noted and this may be subacute.? There is fusion across the DIP joint of the 5th toe.? Also noted is a transverse fracture in the distal phalanx of the adjacent 4th toe. Also noted are 2 similar pin like foreign bodies in the soft tissues around the base of the 2nd toe. Patient has no inflammation at base of the second toe or fifth toe. Will provide orthopedic postoperative shoe for splinting. Patient notes blood sugars been well controlled. He was advised to monitor closely and maintain adequate glycemic control. 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 He understands that he should call today to arrange timely follow-up for reassessment later this week or early next week. He was encouraged to return immediately should any worsening or new concerning symptoms HPI General Mode of arrival: ambulatory . Date/Time Provider Initiated Documentation: 07/23/22 07:30 . Limitations to Documentation: no limitations . Information obtained by: patient . HPI Narrative: 77-year-old male presents with chief complaint of right toe injury. Patient notes yesterday he thinks he accidentally rolled a tractor onto his right foot. Patient notes chronic lack of sensation in his right foot. He noticed toes were swollen and bruised today. Injury localized to third and fourth toes. Patient denies pain. No other injury. Related Data Home Medications Medication Instructions Recorded Confirmed losartan 100 mg tablet (Cozaar) 100 mg PO DAILY 11/01/13 07/29/22 nitroglycerin 0.4 mg sublingual 0.4 mg sublingual Q5 MIN PRN X3 11/01/13 07/29/22 tablet (Nitrostat) PRN #15 tabs insulin lispro 100 unit/mL 30 unit SQ .SLIDING SCALE 09/01/16 07/29/22 subcutaneous pen (Humalog KwikPen (U-100) Insulin) empagliflozin 10 mg tablet 25 mg PO DAILY 05/22/18 07/29/22 (Jardiance) fluticasone propionate 50 1 spray intranasal DAILY 02/10/20 07/29/22 mcg/actuation nasal spray,suspension hydrochlorothiazide 50 mg tablet 50 mg PO DAILY #0 tab-caps 02/20/20 07/29/22 acetaminophen 500 mg tablet 500 mg PO Q6H PRN pain #60 tabs 01/16/21 07/29/22 carvedilol 25 mg tablet 25 mg PO BID 01/16/21 07/29/22 lidocaine 5 % topical ointment 1 applic topical QHS 09/20/21 07/29/22 loperamide 2 mg capsule (Imodium 2 mg PO Q6H PRN 09/20/21 07/29/22 A-D) aspirin 81 mg capsule 81 mg PO DAILY 02/06/22 07/29/22 doxazosin 4 mg tablet (Cardura) 4 mg PO DAILY 02/06/22 07/29/22 pantoprazole 40 mg tablet,delayed 40 mg PO DAILY 02/06/22 07/29/22 release gabapentin 300 mg capsule See Rx Instructions PO DAILY 03/12/22 07/29/22 penicillin V potassium 500 mg See Rx Instructions .Route 05/13/22 07/29/22 tablet .COMPLEX #90 tabs baclofen 5 mg tablet 5 mg PO QHS 07/21/22 07/29/22 insulin glargine 100 unit/mL 40 unit subcut QHS 07/21/22 07/29/22 subcutaneous solution (Lantus U-100 Insulin) magnesium oxide 400 mg PO QPM 07/21/22 07/29/22 magnesium oxide 400 mg (241.3 mg 800 mg PO DAILY 07/21/22 07/29/22 magnesium) tablet ropinirole 1 mg tablet 4 mg PO QHS 07/21/22 07/29/22 apple cider vinegar 300 mg tablet mg PO BID 07/29/22 07/29/22 Previous Rx's Medication Instructions Recorded nitroglycerin 0.4 mg sublingual 0.4 mg sublingual Q5 MIN PRN X3 11/01/13 tablet (Nitrostat) PRN #15 tabs hydrochlorothiazide 50 mg tablet 50 mg PO DAILY #0 tab-caps 02/20/20 acetaminophen 500 mg tablet 500 mg PO Q6H PRN pain #60 tabs 01/16/21 penicillin V potassium 500 mg See Rx Instructions .Route 05/13/22 tablet .COMPLEX #90 tabs Allergies Allergy/AdvReac Type Severity Reaction Status Date / Time amlodipine besylate AdvReac Mild edema Unverified 07/29/22 08:59 [From Norvasc] enalapril maleate AdvReac Mild cough Unverified 07/29/22 08:59 [From Vasotec] enalaprilat dihydrate AdvReac Mild cough Unverified 07/29/22 08:59 [From Vasotec] pravastatin sodium AdvReac Mild myalgia Unverified 07/29/22 08:59 [From Pravachol] from Lipitor rosuvastatin [From Crestor] AdvReac Mild Myalgia Unverified 07/29/22 08:59 General Stated Complaint: Laceration TONG: 4 Review of Systems Musculoskeletal Musculoskeletal: Reports as per HPI Neurologic Neurologic: Reports as per HPI PFSH All Active Problems (Updated 07/28/22 @ 13:57 by Alis Osorio MD) Carpal tunnel syndrome of right wrist (Acute) Carpal tunnel syndrome of left wrist (Acute) Closed fracture of fourth toe of right foot (Acute) Closed fracture of fifth toe of right foot (Acute) Bilateral hand numbness (Acute) Foot drop, bilateral (Acute) Diabetic neuropathy (Acute) Left sided sciatica (Acute) Impairment of speech discrimination (Acute) Asymmetrical sensorineural hearing loss (Acute) DVT prophylaxis (Acute) Sepsis (Acute) Infection of total right knee replacement (Acute) S/p irrigation and debridement; poly exchange; arthrotomy repair DOS: 10/04/2021 Advance care planning (Acute) Hypertension (Chronic) Bacteremia (Acute) Hypoxemia (Acute) Tubulovillous adenoma polyp of colon (Chronic) Noted by colonoscopy. Asymmetrical sensorineural hearing loss (Acute) History of total right knee replacement (Acute 01/16/21) First degree heart block (Acute) Discharge planning issues (Acute) DVT prophylaxis (Acute) Renal insufficiency (Chronic) Abnormal LFTs (Chronic) Secondary to fartty infiltrate of the liver. Cellulitis (Acute) History of total left knee replacement (TKR) (Acute 12/14/19) Dr. Wilson s/p debridement and poly exchange 02/10/20 Diabetes mellitus type 2 (Chronic) Since approximately 1997. On insulin thereapy. Last hemoglobin A1c 6.5% March 2013. 11-01-2013: Most recent hemoglobin A1c was 6.6 ? date. Hyperlipidemia (Chronic) Obstructive sleep apnea syndrome (Chronic) Nocturnal CPAP Benign prostatic hyperplasia (Chronic) Obesity (Chronic) Benign hypertension (Chronic) Diabetic renal disease (Chronic) Chest pain, rule out acute myocardial infarction (Acute 11/01/13) Low blood magnesium (Acute 11/01/13) Tubular adenoma of colon (Acute 09/02/16) Medical History Arthritis BPH (benign prostatic hyperplasia) CAD (coronary artery disease) Cellulitis RIGHT LOWER LEG Chronic lower back pain CKD (chronic kidney disease), stage III Diabetes Diabetic polyneuropathy Erectile dysfunction Fatty infiltration of liver Foot drop Hearing loss History of removal of joint prosthesis of right knee due to infection History of seizures as a child Hx of myocardial infarction 10/2011 STRESS TEST COMPLETED 11/29/2019 Hyperlipidemia Microalbuminuria Morbid obesity Myalgia Onychomycosis Osteoarthritis Palliative care patient Perennial allergic rhinitis Sleep apnea Sleep apnea with use of continuous positive airway pressure (CPAP) Unsteady gait Venous insufficiency Vertigo Surgical History colonoscopy (09/02/16) H/O heart artery stent X2 2014 H/O total knee replacement left knee 12/14/2019, right knee 01/16/2021 History of tonsillectomy and adenoidectomy Family History Maternal Aunt Colon cancer Maternal Aunt Colon cancer Father , 70s Heart disease Mother Lung cancer Brother Liver failure Son , tractor accident Accident caused by farm tractor Social History Smoking/Tobacco Use Status: Never Smoking risk assessment performed?: Yes Alcohol Intake: never Drug use: Never Substance use type: does not use Do you feel safe at home: Yes Do you feel safe in your relationship?: Yes Exam Const General: cooperative and no acute distress Nutritional Appearance: obese Orientation: alert and awake Extrem Right lower extremity: foot Details: normal capillary refill, toes with normal ROM, edema (3rd and 4th ), ecchymosis (3rd and 4th), vascular exam Details: dorsalis pedis pulse present (2+), motor-sensory exam Details: two point discrimination abnormal and light-touch abnormal and other (Nail bed is intact; oozing blood from abrasion dorsally; no erythema); no unusual warmth and no crepitus Course Vital Signs Vital signs: Vital Signs Temperature 36.6 C 07/23/22 06:53 Pulse 66 07/23/22 06:53 Respiratory Rate 17 07/23/22 06:53 Blood Pressure 161/68 H 07/23/22 06:53 Pulse Oximetry 97 07/23/22 06:53 Temperature 36.6 C 07/23/22 06:53 Temperature Source Temporal Artery Scan 07/23/22 06:53 Pulse 66 07/23/22 06:53 Respiratory Rate 17 07/23/22 06:53 Respiratory Effort Non-Labored 07/23/22 06:59 Blood Pressure 161/68 H 07/23/22 06:53 Blood Pressure Position Sitting 07/23/22 06:53 Pulse Oximetry 97 07/23/22 06:53 Oxygen Delivery Method Room Air 07/23/22 06:53 Oxygen Flow Rate 0 07/23/22 06:53 Pain Level 0 07/23/22 06:59
--- NOTE | 2022-07-23 08:30 | DI.RAD_ITS ---
Exam(s) XR TOE RT THIRD EXAM: XR TOE RT THIRD CLINICAL HISTORY: trauma, swelling. TECHNIQUE: 2D digital imaging was performed. COMPARISON: CR,XR XR TOE RT FIFTH from 01/22/2021 FINDINGS: 3 views There are now fractures in the proximal phalanx of the 5th toe and in the distal phalanx of the 4th t oe, not previously present. No other foot fractures identified. No diastasis of the Lisfranc joint. There are 2 adjacent pin like foreign metallic bodies in the soft tissues around the base of the high 2nd toe, slightly medial to the base of the proximal phalanx as seen on the AP view. The lateral vi ew is a cone down view and is therefore not possible to accurately locate these 2 adjacent metallic f oreign bodies. IMPRESSION: DATA REPOSITORY: RADIATION DOSE DELIVERED:
--- NOTE | 2022-07-23 08:30 | DI.RAD_ITS ---
Exam(s) XR TOE RT FOURTH EXAM: XR TOE RT FOURTH CLINICAL HISTORY: trauma, swelling. TECHNIQUE: 2D digital imaging was performed. COMPARISON: CR XR TOE RT THIRD from 07/23/2022 FINDINGS: Three views of the right 4th and 5th toes reveal a fracture in the proximal aspect of the proximal ph alanx of the 5th toe. Some callus formation noted and this may be subacute. There is fusion across the DIP joint of the 5th toe. Also noted is a transverse fracture in the distal phalanx of the adjac ent 4th toe. Also noted are 2 similar pin like foreign bodies in the soft tissues around the base of the 2nd toe. IMPRESSION: Multiple fractures as described above. Two pin like radiopaque foreign bodies as described above. DATA REPOSITORY: RADIATION DOSE DELIVERED:
== END 2022-07-23 09:00 | disposition home or self-care (01) ==
PROVIDERS: Emergency Provider Student in an Organized Health Care Education/Training Program; PCP Family Medicine
DX: S92.511A Displaced fracture of proximal phalanx of right lesser toe(s), initial encounter for closed fracture (principal); S92.531A Displaced fracture of distal phalanx of right lesser toe(s), initial encounter for closed fracture; E11.22 Type 2 diabetes mellitus with diabetic chronic kidney disease; N18.30 Chronic kidney disease, stage 3 unspecified; Z79.4 Long term (current) use of insulin; X58.XXXA Exposure to other specified factors, initial encounter
CPT/HCPCS: 99284; 73660; 99283

== ENCOUNTER → 2022-07-28 13:08 | Outpatient (BNVA) | payer MEDICARE, SELFPAY | PROVIDERS: PCP Family Medicine; Referring Provider Family Medicine; Visit Provider Psychiatry & Neurology Neurology | DX: G56.03 Carpal tunnel syndrome, bilateral upper limbs (principal); E11.42 Type 2 diabetes mellitus with diabetic polyneuropathy; E53.8 Deficiency of other specified B group vitamins; G89.29 Other chronic pain; M54.50 Low back pain, unspecified; M21.371 Foot drop, right foot; M21.372 Foot drop, left foot; L03.115 Cellulitis of right lower limb; R20.0 Anesthesia of skin | CPT/HCPCS: 95911; 99213 ==

== ENCOUNTER → 2022-08-13 00:58 | Outpatient (CLI) | payer MEDICARE, SELFPAY ==
--- NOTE | 2022-08-13 06:30 | DI.MRI_ITS ---
Exam(s) MR LUMBAR SPINE WO EXAM: MR LUMBAR SPINE WO CLINICAL HISTORY: L sciatica,low back pain, m54.50,m54.32. TECHNIQUE: Multiplanar multisequence MRI of the Lumbar spine was performed. COMPARISON: None. FINDINGS: There are no prior plain films for comparison. Therefore 5 lumbar vertebrae are presumed. Conus medullaris is at normal level. There is no evidence of conus mass. The distal thecal sac appe ars unremarkable.There is no evidence of Tarlov intrasacral cysts nor other significant findings with in the sacral canal Bones:There are no fractures nor ominous osseous lesions in the lumbar vertebral bodies and visualize d sacrum. Benign intraosseous hemangiomas seen left side of L3 vertebral body. Other smaller ava iomas seen in the other vertebral bodies. No lytic osseous lesions identified. With respect to the individual levels... T12-L1: Mild disc space narrowing left more so than right side. Annular bulging in the floor of the exiting neural foramina. No central canal stenosis. Mild-moderate bilateral foraminal stenosis. L1-2: Relatively preserved disc height. Mild-moderate central canal stenosis which is related to bro ad annular bulging, short AP dimensions of the pedicles, and some degenerative changes in the facet j oints. There is no significant foraminal stenosis at this level. L2-3: Normal disc height. Anterior osteophytes. Lateral left osteophytes. Broad annular bulging. M ild-moderate central canal stenosis. This is related to the broad annular bulging, short AP dimensio ns the pedicles, and mild degenerative facet joint changes. There is no prominent ligamentum flavum hypertrophy. There is mild foraminal stenosis on the right side. No foraminal stenosis on the left side. L3-4: Relatively preserved disc height. However, there is broad annular bulging posteriorly, this ex tending into the exiting neural foramina bilaterally. There is moderate-severe central spinal canal stenosis, this due to the annular bulging, short AP dimensions the pedicles. Facet joints appear unr emarkable at this level. There is mild ligamentum flavum hypertrophy. There is significant right-si ded foraminal stenosis with the exiting nerve root compressed between the overlying L3 pedicle and avila bjacent annular bulging. Milder foraminal stenosis on the opposite-left side. L4-5: This level exhibits advanced chronic disc space narrowing, anterior osseous lipping and right-s ided osteophytes. Broad annular bulging with a saliva superimposed central subligamentous disc bulge . Moderate central canal stenosis. However, there is significant foraminal stenosis bilaterally at this level. This is related to vertical foraminal stenosis where by the advanced disc height loss an d annular bulging into the exiting neural foramina bilaterally result in compression of the exiting n erve roots on both sides between the overlying L4 pedicles and the subjacent bulging annulus. L5-S1: Advanced chronic disc space narrowing. Anterior osseous lipping. Posteriorly there is some m ilder annular bulging. No distinct focal disc herniation. Central canal dimensions are lower normal . There is an element of vertical foraminal stenosis at this level for similar reasons to L4-5 altho ugh the amount of foraminal stenosis is slightly less bilaterally with less compression of the exitin g nerve roots than is evident at the L4-5 level. However, at this level there is more significant fa cet arthropathy evident. No listhesis. Soft tissues: paraspinal soft tissues appear unremarkable. IMPRESSION: 1. Multilevel chronic degenerative disc disease sequela as described individually above. 2. There is multilevel vertical foraminal stenosis, as described above. 3. There is also an element of central spinal canal stenosis at each level in the lumbar spine with r elative sparing of L5-S1. The canal stenosis at these levels is due to short AP dimensions the pedic les, broad annular bulging, and some facet arthropathy. DATA REPOSITORY:
== END ==
PROVIDERS: PCP Family Medicine; Visit Provider Psychiatry & Neurology Neurology
DX: G89.29 Other chronic pain; M51.17 Intervertebral disc disorders with radiculopathy, lumbosacral region; M99.73 Connective tissue and disc stenosis of intervertebral foramina of lumbar region; M48.07 Spinal stenosis, lumbosacral region
CPT/HCPCS: 72148

== ENCOUNTER → 2022-08-26 10:07 | Outpatient (BNVA) | payer MEDICARE, SELFPAY | PROVIDERS: PCP Family Medicine; Referring Provider Family Medicine; Visit Provider Psychiatry & Neurology Neurology | DX: E11.42 Type 2 diabetes mellitus with diabetic polyneuropathy (principal); E53.8 Deficiency of other specified B group vitamins; Z96.652 Presence of left artificial knee joint; Z96.651 Presence of right artificial knee joint; M21.371 Foot drop, right foot; M21.372 Foot drop, left foot; L03.115 Cellulitis of right lower limb; M48.061 Spinal stenosis, lumbar region without neurogenic claudication; G89.29 Other chronic pain | CPT/HCPCS: 99214 ==

== ENCOUNTER 2022-09-05 15:48 | Outpatient (REF) | payer MEDICARE, SELFPAY ==
[2022-09-05 16:57] LABS: BUN 49 mg/dL (7-18); CREATININE 1.5 mg/dL (0.70-1.30); Calcium 9.4 mg/dL (8.5-10.1); Chloride 104 mmol/L (98-107); Estimated GFR 47.06 (mL/min/1.73m2); Glucose 137 mg/dL (74-106); Magnesium 2.1 mg/dL (1.8-2.4); Potassium 5.3 mmol/L (3.5-5.1); Sodium 137 mmol/L (136-145)
== END 2022-09-05 15:49 | disposition home or self-care (01) ==
LOC: NCHCN 15:48
PROVIDERS: PCP Family Medicine; Visit Provider Family Medicine
DX: I10 Essential (primary) hypertension (principal); I25.10 Atherosclerotic heart disease of native coronary artery without angina pectoris
CPT/HCPCS: 80048; 83735

== ENCOUNTER → 2022-09-25 10:49 | Outpatient (BNVA) | payer MEDICARE, SELFPAY | PROVIDERS: PCP Family Medicine; Referring Provider Family Medicine; Visit Provider Student in an Organized Health Care Education/Training Program | DX: G56.01 Carpal tunnel syndrome, right upper limb (principal); G56.02 Carpal tunnel syndrome, left upper limb | CPT/HCPCS: 99213 ==

== ENCOUNTER → 2022-10-14 08:11 | Outpatient (BNVA) | payer MEDICARE, SELFPAY | PROVIDERS: PCP Family Medicine; Referring Provider Family Medicine; Visit Provider Psychiatry & Neurology Neurology | DX: M48.061 Spinal stenosis, lumbar region without neurogenic claudication (principal); M21.371 Foot drop, right foot; M21.372 Foot drop, left foot; E11.42 Type 2 diabetes mellitus with diabetic polyneuropathy; L03.115 Cellulitis of right lower limb; M54.42 Lumbago with sciatica, left side; G89.29 Other chronic pain | CPT/HCPCS: 99214 ==

== ENCOUNTER 2022-10-28 06:03 | Day surgery (SDC) | payer MEDICARE, SELFPAY ==
[2022-10-28 06:26] VITALS: BP 155/74; PULSE 63; RESP 16; TEMP 35.9; O2SAT 98
--- NOTE | 2022-10-28 06:54 | W.ANESPRE ---
General Info Date of Service Date Performed: 10/28/22 Height: 5 ft 8 in Weight: 129.274 kg Body Mass Index (BMI): 43.3 Surgical Procedure: Operation Date: 10/28/22 07:40 Proposed Procedure Side Surgeon p Wrist ECTR Right Yrn Wilson MD Meds Allergies and Home Medications Allergies Allergy/AdvReac Type Severity Reaction Status Date / Time amlodipine besylate AdvReac Mild edema Verified 10/28/22 06:26 [From Norvasc] enalapril maleate AdvReac Mild cough Verified 10/28/22 06:26 [From Vasotec] enalaprilat dihydrate AdvReac Mild cough Verified 10/28/22 06:26 [From Vasotec] pravastatin sodium AdvReac Mild myalgia Verified 10/28/22 06:26 [From Pravachol] from Lipitor rosuvastatin [From Crestor] AdvReac Mild Myalgia Verified 10/28/22 06:26 Home Medication Medication Instructions Recorded losartan 100 mg tablet (Cozaar) 100 mg PO DAILY 11/01/13 insulin lispro 100 unit/mL 30 unit SQ .SLIDING SCALE 09/01/16 subcutaneous pen (Humalog KwikPen (U-100) Insulin) empagliflozin 10 mg tablet 25 mg PO DAILY 05/22/18 (Jardiance) fluticasone propionate 50 1 spray intranasal DAILY 02/10/20 mcg/actuation nasal spray,suspension hydrochlorothiazide 50 mg tablet 50 mg PO DAILY #0 tab-caps 02/20/20 acetaminophen 500 mg tablet 500 mg PO Q6H PRN pain #60 tabs 01/16/21 carvedilol 25 mg tablet 25 mg PO BID 01/16/21 lidocaine 5 % topical ointment 1 applic topical QHS 09/20/21 loperamide 2 mg capsule (Imodium 2 mg PO Q6H PRN 09/20/21 A-D) aspirin 81 mg capsule 81 mg PO DAILY 02/06/22 doxazosin 4 mg tablet (Cardura) 4 mg PO DAILY 02/06/22 gabapentin 300 mg capsule See Rx Instructions PO DAILY 03/12/22 penicillin V potassium 500 mg See Rx Instructions .Route 05/13/22 tablet .COMPLEX #90 tabs baclofen 5 mg tablet 5 mg PO QHS 07/21/22 insulin glargine 100 unit/mL 40 unit subcut QHS 07/21/22 subcutaneous solution (Lantus U-100 Insulin) magnesium oxide 400 mg PO QPM 07/21/22 magnesium oxide 400 mg (241.3 mg 800 mg PO DAILY 07/21/22 magnesium) tablet ropinirole 1 mg tablet 4 mg PO QHS 07/21/22 apple cider vinegar 300 mg tablet 300 mg PO BID 07/29/22 vitamin B complex (B 1 tab PO DAILY 09/25/22 Complex-Vitamin B12 tablet) Current Visit Medications: Current Medications Generic Name Dose Route Start Last Admin Trade Name Freq PRN Reason Stop Dose Admin Ringer's Solution 1,000 mls @ 80 mls/hr 10/28/22 06:00 IV 10/28/22 23:59 INFUSION HELEN Cefazolin Sodium 3,000 mg/ 100 mls @ 200 mls/hr 10/28/22 06:00 Sodium Chloride IVPB 10/28/22 16:00 PREOP HELEN IV Miscellaneous Supplies 1 each 10/28/22 06:00 Iv Access IV 10/28/22 23:59 DIRECTED HELEN Sodium Chloride 0 ml 10/28/22 06:00 Normal Saline Flush 10 Ml Syr IV 10/28/22 23:59 PRN PRN Sodium Chloride 0 ml 10/28/22 06:00 Normal Saline 10 Ml Vial IJ 10/28/22 23:59 DIRECTED PRN Sterile Water 0 ml 10/28/22 06:00 Water,Injection,Sterile 10 Ml Vial IJ 10/28/22 23:59 DIRECTED PRN PFSH Active Problems Active Problems: Problem Status Onset Code Nail dystrophy L60.3 Lumbar stenosis M48.061 Carpal tunnel syndrome of right wrist G56.01 Carpal tunnel syndrome of left wrist G56.02 Bilateral hand numbness R20.0 Foot drop, bilateral M21.371, M21.372 Diabetic neuropathy E11.40 Left sided sciatica M54.32 Impairment of speech discrimination H93.299 Asymmetrical sensorineural hearing loss H90.3 DVT prophylaxis Z29.9 Sepsis A41.9 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.53XA Advance care planning Z71.89 Hypertension I10 Acute on chronic renal failure N17.9, N18.9 Bacteremia R78.81 Community acquired pneumonia J18.9 Cellulitis of leg, right L03.115 Hypoxemia R09.02 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 Asymmetrical sensorineural hearing loss H90.5 History of total right knee replacement 01/16/21 Z96.651 First degree heart block I44.0 Septic arthritis of knee, left 02/09/20 M00.9 Acute kidney injury (nontraumatic) N17.9 Discharge planning issues Z02.9 DVT prophylaxis Z29.9 Renal insufficiency N28.9 Abnormal LFTs Sepsis A41.9 Cellulitis L03.90 History of total left knee replacement (TKR) 12/14/19 Z96.652 Diabetes mellitus type 2 E11.9 Hyperlipidemia E78.5 Obstructive sleep apnea syndrome G47.33 Benign prostatic hyperplasia N40.0 Obesity E66.9 Benign hypertension I10 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 Chest pain, rule out acute myocardial infarction 11/01/13 R07.9 Low blood magnesium 11/01/13 E83.42 Tubular adenoma of colon 09/02/16 D12.6 Medical History Medical History Arthritis BPH (benign prostatic hyperplasia) CAD (coronary artery disease) Cellulitis RIGHT LOWER LEG Chronic lower back pain CKD (chronic kidney disease), stage III Diabetes Diabetic polyneuropathy Erectile dysfunction Fatty infiltration of liver Foot drop Hearing loss History of removal of joint prosthesis of right knee due to infection History of seizures as a child Hx of myocardial infarction 10/2011 STRESS TEST COMPLETED 11/29/2019 Hyperlipidemia Microalbuminuria Morbid obesity Myalgia Onychomycosis Osteoarthritis Palliative care patient Perennial allergic rhinitis Sleep apnea Sleep apnea with use of continuous positive airway pressure (CPAP) Unsteady gait Venous insufficiency Vertigo Surgical History Surgical History colonoscopy (09/02/16) H/O heart artery stent X2 2014 H/O total knee replacement left knee 12/14/2019, right knee 01/16/2021 History of tonsillectomy and adenoidectomy Tobacco Smoking/Tobacco Use Status: Never Alcohol Alcohol Intake: never Substance Use Substance use: Never Substance use type: does not use Vital Signs and Lab Results Vital Signs Most Recent Vital Signs in EMR: Most Recent Vital Signs Temp Pulse Resp BP Pulse Ox 35.9 C L 63 16 155/74 H 98 10/28/22 06:26 10/28/22 06:26 10/28/22 06:26 10/28/22 06:26 10/28/22 06:26 Point of Care Results Point of Care Results: Finger Stick Blood Glucose 108 10/28/22 06:43 Lab Results Blood Type / Crossmatch: No Data to Display Complete Blood Count: No Data to Display Complete Metabolic Panel: No Data to Display Liver Function Panel: No Data to Display Coagulation Panel: No Data to Display Cardiac Panel: No Data to Display Arterial Blood Gas: No Data to Display Venous Blood Gas: No Data to Display Pancreas Panel: No Data to Display Thyroid Panel: No Data to Display Infectious Disease: No Data to Display Blood Cultures: No Data to Display Toxicology Panel: No Data to Display Imaging and Studies Imaging and Studies Study information below may be from another EMR and interpreted by another provider. Please see original notes in EMR for more complete details. EKG Summary: Conclusion Sinus rhythm...normal P axis, V-rate 60- 99 Prolonged NE interval...NE >220, V-rate 50- 90 09/27/21 First degree AV block Stress Test Summary: Stress ECG Conclusion 1. There was no evidence of ischemia on this ECG portion of this exam. 11/29/19 Echocardiogram Summary: Conclusion Normal left ventricular wall thickness and chamber size. Estimated ejection fraction is 55 to 60%. There are no segmental wall motion abnormalities Normal right ventricular size and systolic function Both atria are normal in size Aortic valve is trileaflet and sclerotic without stenosis or regurgitation Mild mitral annular calcification with trace regurgitation Normal tricuspid valve with trace regurgitation. Unable to estimate right ventricular systolic pressure Mildly to moderately dilated aortic root and ascending aorta 09/30/21 Cardiac Catheterization Summary: 2014: 2 stents placed post NE, no issues since Anesthesia Assessment and Plan Anesthesia History Personal History: No History of Anesthesia Complications Family History: No Family History of Anesthesia Complications Exercise Tolerance Exercise Tolerance: Metabolic Equivalents<4 Pertinent Negatives Pertinent Negatives: No Symptoms of GERD Cardiac & Pulmonary Exam Cardiac Exam: Normal S1/S2 Heart Sounds Pulmonary Exam: Clear Bilateral Breath Sounds Implantable Cardiac Device Does patient have a Pacemaker or an ICD?: No Airway Exam Known Difficult Airway: No Mallampati Class: 3 Mouth Opening: Narrow (< 3cm) Thyromental Distance: Greater than 3 cm Neck Range of Motion: Full ROM Neck Circumference: Normal Teeth Condition: Generalized Poor Dentition (Many missing and broken) ASA Classification ASA Score: ASA 3 Emergency Case?: No NPO Status NPO Status: NPO Clears >2 hours, Solids >8 hours Anesthesia Plan Resuscitation Status: Full Code Anesthesia Technique: General Anesthesia Airway Planned: Natural Airway Monitors Used: Standard Monitors
[2022-10-28] MEDS: Lactated Ringers 1,000 ML 80 ML IV (06:58)
[2022-10-28 07:14] VITALS: BMI 43.3
--- NOTE | 2022-10-28 07:18 | PDOC.DSDIS_ITS ---
Date of service: 10/28/22 Time of Service: 07:18 Discharge Plan Disposition Patient Disposition: HOME Condition: Good Discharge Details Reason For Visit: R ECTR Attending Provider: Yrn Wilson Primary Care Provider: Cameron Mcarthur Home Meds and New Rx's Prescriptions: New acetaminophen 500 mg tablet 1,000 mg PO TID Qty: 90 0RF ibuprofen 600 mg tablet 600 mg PO TID PRN (Reason: pain) Qty: 90 0RF Continued loperamide [Imodium A-D] 2 mg capsule 2 mg PO Q6H PRN lidocaine 5 % ointment 1 applic topical QHS insulin glargine [Lantus U-100 Insulin] 100 unit/mL solution 40 unit subcut QHS baclofen 5 mg tablet 5 mg PO QHS ropinirole 1 mg tablet 4 mg PO QHS Rx Instructions: administer 1-3 hours before bedtime magnesium oxide 400 mg (241.3 mg magnesium) tablet 800 mg PO DAILY magnesium oxide 400 mg magnesium tablet 400 mg PO QPM vitamin B complex [B Complex-Vitamin B12] Tablet 1 tab PO DAILY apple cider vinegar 300 mg tablet 300 mg PO BID doxazosin [Cardura] 4 mg tablet 4 mg PO DAILY aspirin 81 mg capsule 81 mg PO DAILY gabapentin 300 mg capsule See Rx Instructions PO DAILY Rx Instructions: take 2 capsules by mouth every morning and and 3 capsules every evening PO daily; penicillin V potassium 500 mg tablet See Rx Instructions .ROUTE .COMPLEX Qty: 90 6RF Dose Instruction: TAKE 1 TABLET(500 MG) BY MOUTH THREE TIMES DAILY Rx Instructions: TAKE 1 TABLET(500 MG) BY MOUTH THREE TIMES DAILY losartan [Cozaar] 100 MG tablet 100 mg PO DAILY insulin lispro [Humalog KwikPen Insulin] 100 UNIT/ML insulin pen 30 unit SQ .SLIDING SCALE Jardiance 10 MG tablet 25 mg PO DAILY fluticasone propionate 50 mcg/actuation [place],Suspension 1 spray INTRANASAL DAILY hydrochlorothiazide 50 MG tablet 50 mg PO DAILY Qty: 0 0RF carvedilol 25 mg tablet 25 mg PO BID Discontinued acetaminophen 500 mg tablet 500 mg PO Q6H PRN (Reason: pain) Qty: 60 2RF Discharge Instructions Stand Alone Forms: Steve Gomez Tunnel Release Referrals: Yrn Wilson MD [ [facility]FF PHYSICIAN] - Activity:: Activity as Tolerated Remove Dressings/Wound Care:: 48 hours Shower/Bathe:: 48 hours Diet:: As Tolerated
[2022-10-28] MEDS: ceFAZolin 3,000 MG in Normal Saline 100 ML 200 MG IVPB (07:20)
--- NOTE | 2022-10-28 07:27 | W.PREOPHP ---
Assessment and Plan Assessment and plan (1) Carpal tunnel syndrome of right wrist: Status: Acute Assessment and plan: Kurtis is a 77-year-old who has carpal tunnel syndrome of the right hand. He is here for his right carpal tunnel release. I discussed the technical details of carpal tunnel release and that I perform an endoscopic release, but would make a larger, open, incision if necessary for visualization. I discussed the risks of the procedure to include, but not limited to, bleeding, infection, palmar pain, stiffness, damage to nerves, damage to vessels, damage to tendons, weakness, recurrence, and incomplete release. Given these risks, Kurtis desires to proceed. We will proceed with the left side in the near future. History of Present Illness History of Present Illness Chief Complaint: right Carpal Tunnel Syndrome Narrative: Kurtis is a 77-year-old who has carpal tunnel syndrome of both hands, worse on the right. He is here for his right carpal tunnel release. He has multiple medical comorbidities including hypertension, cardiomyopathy, diabetes, restless leg, ongoing sciatica, poor wound healing. These are all in stable condition. He denies any chest pain or shortness of breath. He denies any fevers or chills. PFSH All Active Problems Nail dystrophy (Acute) Lumbar stenosis (Acute) Carpal tunnel syndrome of right wrist (Acute) Carpal tunnel syndrome of left wrist (Acute) Bilateral hand numbness (Acute) Foot drop, bilateral (Acute) Diabetic neuropathy (Acute) Left sided sciatica (Acute) Impairment of speech discrimination (Acute) Asymmetrical sensorineural hearing loss (Acute) DVT prophylaxis (Acute) Sepsis (Acute) Infection of total right knee replacement (Acute) S/p irrigation and debridement; poly exchange; arthrotomy repair DOS: 10/04/2021 Advance care planning (Acute) Hypertension (Chronic) Bacteremia (Acute) Hypoxemia (Acute) Tubulovillous adenoma polyp of colon (Chronic) Noted by colonoscopy. Asymmetrical sensorineural hearing loss (Acute) History of total right knee replacement (Acute 01/16/21) First degree heart block (Acute) Discharge planning issues (Acute) DVT prophylaxis (Acute) Renal insufficiency (Chronic) Abnormal LFTs (Chronic) Secondary to fartty infiltrate of the liver. Cellulitis (Acute) History of total left knee replacement (TKR) (Acute 12/14/19) Dr. Wilson s/p debridement and poly exchange 02/10/20 Diabetes mellitus type 2 (Chronic) Since approximately 1997. On insulin thereapy. Last hemoglobin A1c 6.5% March 2013. 11-01-2013: Most recent hemoglobin A1c was 6.6 ? date. Hyperlipidemia (Chronic) Obstructive sleep apnea syndrome (Chronic) Nocturnal CPAP Benign prostatic hyperplasia (Chronic) Obesity (Chronic) Benign hypertension (Chronic) Diabetic renal disease (Chronic) Chest pain, rule out acute myocardial infarction (Acute 11/01/13) Low blood magnesium (Acute 11/01/13) Tubular adenoma of colon (Acute 09/02/16) Medical History Arthritis BPH (benign prostatic hyperplasia) CAD (coronary artery disease) Cellulitis RIGHT LOWER LEG Chronic lower back pain CKD (chronic kidney disease), stage III Diabetes Diabetic polyneuropathy Erectile dysfunction Fatty infiltration of liver Foot drop Hearing loss History of removal of joint prosthesis of right knee due to infection History of seizures as a child Hx of myocardial infarction 10/2011 STRESS TEST COMPLETED 11/29/2019 Hyperlipidemia Microalbuminuria Morbid obesity Myalgia Onychomycosis Osteoarthritis Palliative care patient Perennial allergic rhinitis Sleep apnea Sleep apnea with use of continuous positive airway pressure (CPAP) Unsteady gait Venous insufficiency Vertigo Surgical History colonoscopy (09/02/16) H/O heart artery stent X2 2013 H/O total knee replacement left knee 12/14/2019, right knee 01/16/2021 History of tonsillectomy and adenoidectomy Family History Maternal Aunt Colon cancer Maternal Aunt Colon cancer Father , 70s Heart disease Mother Lung cancer Brother Liver failure Son , tractor accident Accident caused by farm tractor Social History Smoking/Tobacco Use Status: Never Smoking risk assessment performed?: Yes Alcohol Intake: never Drug use: Never Substance use type: does not use Do you feel safe at home: Yes Do you feel safe in your relationship?: Yes Meds Allergies and Home Medications Allergies Allergy/AdvReac Type Severity Reaction Status Date / Time amlodipine besylate AdvReac Mild edema Verified 10/28/22 06:26 [From Norvasc] enalapril maleate AdvReac Mild cough Verified 10/28/22 06:26 [From Vasote] enalaprilat dihydrate AdvReac Mild cough Verified 10/28/22 06:26 [From Vasotec] pravastatin sodium AdvReac Mild myalgia Verified 10/28/22 06:26 [From Pravachol] from Lipitor rosuvastatin [From Crestor] AdvReac Mild Myalgia Verified 10/28/22 06:26 Home Medications Medication Instructions Recorded Confirmed Type losartan 100 mg tablet (Cozaar) 100 mg PO DAILY 11/01/13 10/28/22 History insulin lispro 100 unit/mL 30 unit SQ .SLIDING SCALE 09/01/16 10/28/22 History subcutaneous pen (Humalog KwikPen (U-100) Insulin) empagliflozin 10 mg tablet 25 mg PO DAILY 05/22/18 10/28/22 History (Jardiance) fluticasone propionate 50 1 spray intranasal DAILY 02/10/20 10/28/22 History mcg/actuation nasal spray,suspension hydrochlorothiazide 50 mg tablet 50 mg PO DAILY #0 tab-caps 02/20/20 10/28/22 Rx carvedilol 25 mg tablet 25 mg PO BID 01/16/21 10/28/22 History lidocaine 5 % topical ointment 1 applic topical QHS 09/20/21 10/28/22 History loperamide 2 mg capsule (Imodium 2 mg PO Q6H PRN 09/20/21 10/28/22 History A-D) aspirin 81 mg capsule 81 mg PO DAILY 02/06/22 10/28/22 History doxazosin 4 mg tablet (Cardura) 4 mg PO DAILY 02/06/22 10/28/22 History gabapentin 300 mg capsule See Rx Instructions PO DAILY 03/12/22 10/28/22 History penicillin V potassium 500 mg See Rx Instructions .Route 05/13/22 10/28/22 Rx tablet .COMPLEX #90 tabs baclofen 5 mg tablet 5 mg PO QHS 07/21/22 10/28/22 History insulin glargine 100 unit/mL 40 unit subcut QHS 07/21/22 10/28/22 History subcutaneous solution (Lantus U-100 Insulin) magnesium oxide 400 mg PO QPM 07/21/22 10/28/22 History magnesium oxide 400 mg (241.3 mg 800 mg PO DAILY 07/21/22 10/28/22 History magnesium) tablet ropinirole 1 mg tablet 4 mg PO QHS 07/21/22 10/28/22 History apple cider vinegar 300 mg tablet 300 mg PO BID 07/29/22 10/28/22 History vitamin B complex (B 1 tab PO DAILY 09/25/22 10/28/22 History Complex-Vitamin B12 tablet) acetaminophen 500 mg tablet 1,000 mg PO TID #90 tabs 10/28/22 Rx ibuprofen 600 mg tablet 600 mg PO TID PRN pain #90 tabs 10/28/22 Rx Exam Resp Auscultation: clear to auscultation bilaterally Cardio Rate: regular rate Rhythm: regular rhythm Results Last Vital Signs Temp 35.9 C L 10/28/22 06:26 Pulse 63 10/28/22 06:26 Resp 16 10/28/22 06:26 BP 155/74 H 10/28/22 06:26 Pulse Ox 98 10/28/22 06:26
[2022-10-28] MEDS: Lidocaine 1% Pres-Free W/EPI 1/200,000 10 ML VIAL (07:36)
[2022-10-28 07:52] VITALS: BP 106/95; PULSE 61; RESP 20; TEMP 36; O2SAT 96
[2022-10-28 08:11] VITALS: BP 113/68; PULSE 62; RESP 18; TEMP 36.3; O2SAT 94
--- NOTE | 2022-10-28 09:24 | W.ANESPOSTOP ---
Postoperative Evaluation Date, Time and Location Date Performed: 10/28/22 Time Performed: 08:25 Patient Location: Day Surgery Unit Vital Signs Most Recent Imported Vital Signs: Most Recent Vital Signs Temp Pulse Resp BP Pulse Ox 36.3 C L 62 18 113/68 94 10/28/22 08:11 10/28/22 08:11 10/28/22 08:11 10/28/22 08:11 10/28/22 08:11 Pain Score Most Recent Pain Score: Most Recent Pain Score Pain Level 0 10/28/22 08:11 Assessment Mental Status: Awake (Alert & Oriented to Patient Baseline) Airway and Respiratory Function: Patent airway with normal (patient baseline) respiratory exam Cardiovascular Function: Hemodynamically Stable Hydration Status: Adequately Hydrated Nausea & Vomiting: No Nausea or Vomiting Pain: Pt. Denies Any Pain Peripheral Nerve Block: Patient did not receive a nerve block
--- NOTE | 2022-10-28 21:22 | W.PM.OP ---
Date of service: 10/28/22 Time of Service: 07:45 Operative Note Operative Note DATE OF PROCEDURE: 10/28/22 PRE-OP DIAGNOSIS: Right Carpal Tunnel Syndrome POST-OP DIAGNOSIS: same PROCEDURE: Right Endoscopic Carpal Tunnel Release SURGEON: Yrn Wilson ANESTHESIA TYPE: General:No Airway Refer to Anesthesia Record ESTIMATED BLOOD LOSS: 0 PATHOLOGY: none sent TOURNIQUET TIME: 4 COMPLICATIONS: None Patient was transported to: same day Patient's condition: stable Indications: I have seen Kurtis in clinic for symptoms of carpal tunnel syndrome. The numbness, tingling, and pain limited function. Clinical exam findings with nerve conduction tests confirmed the diagnosis of carpal tunnel syndrome. Nonoperative measures such as bracing, time, activity modifications had been tried but disability and pain persisted. I discussed carpal tunnel release with the patient. I reviewed the risks of the procedure to include, but not limited to, bleeding, infection, pain, stiffness, incomplete release, damage to nerves or vessels, persistent numbness, recurrence. Despite these risks, the patient elected to proceed. Findings: There was tightened carpal tunnel. This was dilated and released successfully with the endoscopic with increased space within the tunnel. The antebrachial fascia was released proximally freeing the median nerve at the wrist. Procedure Description: Kurtis was greeted in the preoperative holding area where the correct side was identified and marked. The consent was reviewed with the patient and signed. The history and physical was updated. All questions were answered. He was taken back to the operating room. The patient was placed into the supine position on the operating room table with the right arm on an arm board. A nonsterile tourniquet was placed high onto the arm. All bony prominences were well padded. Prophylactic antibiotics in the form of Cefazolin were administered. The right arm was then prepped with Chloraprep and draped in a standard fashion with stockinette and extremity drape. A timeout to confirm correct identity, side and site, procedure, allergies, anesthesia, and medical concerns was performed. The surgical site was marked in the volar wrist creases in line with the radial border of the fourth ray. This area was anesthetized with approximately 6cc of 1% Lidocaine. The limb was then exsanguinated with an Esmarch. The skin was incised with a 15 blade, approximately 1cm. The skin only was cut and the deeper tissue was dissected bluntly with a tenotomy scissor, avoiding passing nerve and venous structures. The fascia was penetrated and opened bluntly. A two-prong skin hook was placed under this proximal fascial edge. A series of hamate finders were used to identify and dilate the carpal tunnel. Synovial elevator was used to free synovial attachments to the underside of the transverse carpal ligament. My thumb was kept in the palm to ruddy the distal extent of the carpal tunnel and correctly position the hand. The [employer] endoscope was inserted without difficulty and without resistance. Excellent visualization showed horizontally running fibers of the transverse carpal ligament (TCL). The distal extent of the TCL was visualized and the end of the scope palpated with the thumb. The blade was elevated and withdrawn from distal to proximal. The TCL was split into two flaps. The endoscope was reinserted to confirm complete release and any remnant ligament was incised. The scope was withdrawn and the proximal aspect of the carpal tunnel was grossly inspected and appeared release with the median nerve visible. The antebrachial fascia at the level of the wrist was then freed from the overlying skin and then the underlying median nerve with blunt dissection. This was transected longitudinally for about 3cm proximal to the wrist incision. The wound was then irrigated with easy flow of irrigant distally and proximally. The incision was closed with a single 4-0 Nylon suture. The wound was dressed with Xeroform, Gauze, Kerlix and Eduin. The tourniquet was deflated with the initial dressing and held with some pressure. Blood flow returned easily to all digits with capillary refill less than 2 seconds. The patient tolerated the procedure well and was returned to the Same Day Surgery area in a stable condition suffering no known complication.
== END 2022-10-28 09:07 | disposition home or self-care (01) ==
PROVIDERS: PCP Family Medicine; Visit Provider Student in an Organized Health Care Education/Training Program
PROC: 01N54ZZ Release Median Nerve, Percutaneous Endoscopic Approach (ICD-10-PCS; CPT 29848; principal; 2022-10-28 07:30)
DX: G56.01 Carpal tunnel syndrome, right upper limb (principal); E11.42 Type 2 diabetes mellitus with diabetic polyneuropathy; E11.22 Type 2 diabetes mellitus with diabetic chronic kidney disease; N18.30 Chronic kidney disease, stage 3 unspecified
CPT/HCPCS: 29848; J0690; J2405

== ENCOUNTER → 2022-11-06 10:48 | Outpatient (BNVA) | payer MEDICARE, SELFPAY | PROVIDERS: PCP Family Medicine; Referring Provider Family Medicine; Visit Provider Physician Assistant | DX: G56.01 Carpal tunnel syndrome, right upper limb (principal); Z47.89 Encounter for other orthopedic aftercare ==

== ENCOUNTER 2022-12-02 07:15 | Emergency (ER) | payer MEDICARE, SELFPAY ==
[2022-12-02] VITALS (23 sets, daily range): BP systolic 94–151; BP diastolic 50–72; PULSE 54–75; RESP 14–26; TEMP 36.5; O2SAT 94
--- NOTE | 2022-12-02 07:15 | RT.EKG_ITS ---
APPROVED REPORT Exam: Resting ECG Reason for Exam: sob Patient Location: E HR:72 bpm ECG Measurements Heart Rate 72 AXIS GA 323 P 6 QRSd 95 QRS -16 QT 405 T 8 QTc 444 Conclusion Sinus rhythm...normal P axis Prolonged GA interval...GA >220. Previously noted
--- NOTE | 2022-12-02 07:30 | DI.RAD_ITS ---
Exam(s) XR PORTABLE CHEST AP EXAM: XR PORTABLE CHEST AP CLINICAL HISTORY: shortness of breath. TECHNIQUE: 2D digital imaging was performed. COMPARISON: CR XR PORTABLE CHEST AP from 10/08/2021 FINDINGS: Single AP portable view. Heart size is upper normal. The mediastinum is not widened. There is now infiltrate in left lower lobe and right upper lobe. No obvious pleural effusions. IMPRESSION: Bilateral infiltrates, specifically in the left lower lobe retrocardiac region (posterior basal segme nt of the left lower lobe) and right upper lobe contiguous with the minor fissure. There are no obvious pleural effusions evident on this single portable view. DATA REPOSITORY: RADIATION DOSE DELIVERED:
[2022-12-02 08:06] LABS: Abs Immature Grans 0.08 10^3/uL (0.0-0.06); Absolute Basophil Count 0.05 10^3/uL (0.0-0.2); Absolute Eosinophil Count 0.11 10^3/uL (0.0-0.7); Absolute Lymphocyte Count 0.51 10^3/uL (1.2-3.4); Absolute Monocyte Count 0.69 10^3/uL (0.1-0.8); Basophils % 0.4; Eosinophils % 0.9; HCT 39.7 % (40.0-50.0); HGB 12.8 g/dL (13.5-17.5); Immature Grans % 0.7; Lymphocytes % 4.2; MCH 27.5 pg (27.0-33.0); MCHC 32.2 % (32.0-36.0); MCV 85 fL (80-95); MPV 9.2 fL (8.0-11.0); Monocytes % 5.7; Neutrophils % 88.1; Platelet Count 269 10^3/uL (130-400); RBC 4.65 10^6/uL (4.36-5.78); RDW 14.6 % (11.8-14.1); RDW-SD 45.7 fL; WBC 12.17 10^3/uL (4.4-10.8)
[2022-12-02 08:08] LABS: Absolute Neutrophil Count 10.72 10^3/uL (1.2-6.7)
--- NOTE | 2022-12-02 08:09 | ED.GENADUL_ITS ---
Discharge Plan Disposition Patient Disposition: Home Condition: Improving Discharge Details Clinical Impression: Walking pneumonia Primary Care Provider: Cameron Mcarthur ED Provider: Shaheed Gayle Home Meds and New Rx's Prescriptions: New cefpodoxime 200 mg tablet 200 mg PO BID 14 Days Qty: 28 0RF Rx Instructions: must administer with a meal/food guaifenesin 400 mg tablet 400 mg PO BID 10 Days Qty: 20 0RF Continued loperamide [Imodium A-D] 2 mg capsule 2 mg PO Q6H PRN lidocaine 5 % ointment 1 applic topical QHS insulin glargine [Lantus U-100 Insulin] 100 unit/mL solution 40 unit subcut QHS baclofen 5 mg tablet 5 mg PO QHS ropinirole 1 mg tablet 4 mg PO QHS Rx Instructions: administer 1-3 hours before bedtime magnesium oxide 400 mg (241.3 mg magnesium) tablet 800 mg PO DAILY magnesium oxide 400 mg magnesium tablet 400 mg PO QPM vitamin B complex [B Complex-Vitamin B12] Tablet 1 tab PO DAILY apple cider vinegar 300 mg tablet 300 mg PO BID doxazosin [Cardura] 4 mg tablet 4 mg PO DAILY aspirin 81 mg capsule 81 mg PO DAILY gabapentin 300 mg capsule See Rx Instructions PO DAILY Rx Instructions: take 2 capsules by mouth every morning and and 3 capsules every evening PO daily; penicillin V potassium 500 mg tablet See Rx Instructions .ROUTE .COMPLEX Qty: 90 6RF Dose Instruction: TAKE 1 TABLET(500 MG) BY MOUTH THREE TIMES DAILY Rx Instructions: TAKE 1 TABLET(500 MG) BY MOUTH THREE TIMES DAILY losartan [Cozaar] 100 MG tablet 100 mg PO DAILY insulin lispro [Humalog KwikPen Insulin] 100 UNIT/ML insulin pen 30 unit SQ .SLIDING SCALE Jardiance 10 MG tablet 25 mg PO DAILY fluticasone propionate 50 mcg/actuation [place],Suspension 1 spray INTRANASAL DAILY hydrochlorothiazide 50 MG tablet 50 mg PO DAILY Qty: 0 0RF carvedilol 25 mg tablet 25 mg PO BID acetaminophen 500 mg tablet 1,000 mg PO TID Qty: 90 0RF ibuprofen 600 mg tablet 600 mg PO TID PRN (Reason: pain) Qty: 90 0RF Discharge Instructions Instructions: Community Acquired Pneumonia (ED) Additional Instructions: Home to rest today. We will arrange for a follow-up appointment with you in primary care for recheck. Take antibiotics as prescribed. May use the albuterol inhaler up to every 6 hours, 1 to 2 puffs if needed for persistent coughing. May perform gentle massage of chest wall to loosen secretions. Return for any acute concerns. Medical Decision Making 77-year-old male presents from home with report of 10+ days of cough, congestion, subjective fever and chills. Now with production of thick yellowish sputum. He states he has had increased coughing lying flat and has been sleeping in a recliner for 5 days and notes some trace edema in his legs. Patient is well-appearing, interactive and pleasant. He is oxygenating 94% on room air and is afebrile with otherwise unremarkable vital signs. Different diagnosis includes pneumonia, CHF, viral syndrome. Patient IV access established, screening laboratories, viral swab, EKG and chest x-ray obtained. He is given DuoNeb updraft and antitussive. Viral swabs are negative. Laboratories note a white count of 12, hematocrit 39, platelets 269. He has chronic renal insufficiency today with BUN 30, creatinine 1.5. He has had chronic mild elevations of LFTs and today AST 54 and ALT 77. Troponin is negative. BNP has no comparisons, is elevated at 1481. This may be partly due to renal clearance. Will not initiate diuresis. Chest x-ray with bilateral infiltrate The patient is improved. He had some good response to DuoNeb. Will offer albuterol as needed use for coughing paroxysms at home. We will start the patient on oral antibiotics. We will arrange for a follow-up with primary care. He will be prescribed an antitussive and 14 days of oral cephalosporin. Stable and appropriate for discharge. HPI General Mode of arrival: ambulatory . Date/Time Provider Initiated Documentation: 12/02/22 07:42 . Limitations to Documentation: no limitations . Information obtained by: patient . History of Present Illness 77 year old M presents to the emergency department with the chief complaint of Persistent coughing, congestion, described as moderate, Quality is described as dull, and is localized to the chest. Patient reports no radiation. Patient started experiencing this day(s) and it has been intermittent. No relieving factors improve symptom(s), No exacerbating factors reported . Patient notes cough and fever/chills; denies chest pain, nausea/vomiting and shortness of breath. Patient did receive the following treatments prior to arrival, other (Tessalon) Related Data Home Medications Medication Instructions Recorded Confirmed losartan 100 mg tablet (Cozaar) 100 mg PO DAILY 11/01/13 12/02/22 insulin lispro 100 unit/mL 30 unit SQ .SLIDING SCALE 09/01/16 12/02/22 subcutaneous pen (Humalog KwikPen (U-100) Insulin) empagliflozin 10 mg tablet 25 mg PO DAILY 05/22/18 12/02/22 (Jardiance) fluticasone propionate 50 1 spray intranasal DAILY 02/10/20 12/02/22 mcg/actuation nasal spray,suspension hydrochlorothiazide 50 mg tablet 50 mg PO DAILY #0 tab-caps 02/20/20 12/02/22 carvedilol 25 mg tablet 25 mg PO BID 01/16/21 12/02/22 lidocaine 5 % topical ointment 1 applic topical QHS 09/20/21 12/02/22 loperamide 2 mg capsule (Imodium 2 mg PO Q6H PRN 09/20/21 12/02/22 A-D) aspirin 81 mg capsule 81 mg PO DAILY 02/06/22 12/02/22 doxazosin 4 mg tablet (Cardura) 4 mg PO DAILY 02/06/22 12/02/22 gabapentin 300 mg capsule See Rx Instructions PO DAILY 03/12/22 12/02/22 penicillin V potassium 500 mg See Rx Instructions .Route 05/13/22 12/02/22 tablet .COMPLEX #90 tabs baclofen 5 mg tablet 5 mg PO QHS 07/21/22 12/02/22 insulin glargine 100 unit/mL 40 unit subcut QHS 07/21/22 12/02/22 subcutaneous solution (Lantus U-100 Insulin) magnesium oxide 400 mg PO QPM 07/21/22 12/02/22 magnesium oxide 400 mg (241.3 mg 800 mg PO DAILY 07/21/22 12/02/22 magnesium) tablet ropinirole 1 mg tablet 4 mg PO QHS 07/21/22 12/02/22 apple cider vinegar 300 mg tablet 300 mg PO BID 07/29/22 12/02/22 vitamin B complex (B 1 tab PO DAILY 09/25/22 12/02/22 Complex-Vitamin B12 tablet) acetaminophen 500 mg tablet 1,000 mg PO TID #90 tabs 10/28/22 12/02/22 ibuprofen 600 mg tablet 600 mg PO TID PRN pain #90 tabs 10/28/22 12/02/22 cefpodoxime 200 mg tablet 200 mg PO BID 14 days #28 tabs 12/02/22 guaifenesin 400 mg tablet 400 mg PO BID 10 days #20 tabs 12/02/22 Previous Rx's Medication Instructions Recorded hydrochlorothiazide 50 mg tablet 50 mg PO DAILY #0 tab-caps 02/20/20 penicillin V potassium 500 mg See Rx Instructions .Route 05/13/22 tablet .COMPLEX #90 tabs acetaminophen 500 mg tablet 1,000 mg PO TID #90 tabs 10/28/22 ibuprofen 600 mg tablet 600 mg PO TID PRN pain #90 tabs 10/28/22 cefpodoxime 200 mg tablet 200 mg PO BID 14 days #28 tabs 12/02/22 guaifenesin 400 mg tablet 400 mg PO BID 10 days #20 tabs 12/02/22 Allergies Allergy/AdvReac Type Severity Reaction Status Date / Time amlodipine besylate AdvReac Mild edema Verified 12/02/22 07:28 [From Norvasc] enalapril maleate AdvReac Mild cough Verified 12/02/22 07:28 [From Vasotec] enalaprilat dihydrate AdvReac Mild cough Verified 12/02/22 07:28 [From Vasotec] pravastatin sodium AdvReac Mild myalgia Verified 12/02/22 07:28 [From Pravachol] from Lipitor rosuvastatin [From Crestor] AdvReac Mild Myalgia Verified 12/02/22 07:28 General Stated Complaint: RespSymp TONG: 3 Review of Systems Narrative: Denies chest pain. Notes some edema of his legs and sleeping upright due to increased coughing spells. No known sick contacts. 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 8 systems reviewed and otherwise negative PFSH All Active Problems (Updated 12/02/22 @ 09:07 by Shaheed Gayle MD) Walking pneumonia (Acute) Nail dystrophy (Acute) Lumbar stenosis (Acute) Carpal tunnel syndrome of left wrist (Acute) Bilateral hand numbness (Acute) Foot drop, bilateral (Acute) Diabetic neuropathy (Acute) Left sided sciatica (Acute) Impairment of speech discrimination (Acute) Asymmetrical sensorineural hearing loss (Acute) DVT prophylaxis (Acute) Sepsis (Acute) Infection of total right knee replacement (Acute) S/p irrigation and debridement; poly exchange; arthrotomy repair DOS: 10/04/2021 Advance care planning (Acute) Hypertension (Chronic) Bacteremia (Acute) Hypoxemia (Acute) Tubulovillous adenoma polyp of colon (Chronic) Noted by colonoscopy. Asymmetrical sensorineural hearing loss (Acute) History of total right knee replacement (Acute 01/16/21) First degree heart block (Acute) Discharge planning issues (Acute) DVT prophylaxis (Acute) Renal insufficiency (Chronic) Abnormal LFTs (Chronic) Secondary to fartty infiltrate of the liver. Cellulitis (Acute) History of total left knee replacement (TKR) (Acute 12/14/19) Dr. Wilson s/p debridement and poly exchange 02/10/20 Diabetes mellitus type 2 (Chronic) Since approximately 1997. On insulin thereapy. Last hemoglobin A1c 6.5% March 2013. 11-01-2013: Most recent hemoglobin A1c was 6.6 ? date. Hyperlipidemia (Chronic) Obstructive sleep apnea syndrome (Chronic) Nocturnal CPAP Benign prostatic hyperplasia (Chronic) Obesity (Chronic) Benign hypertension (Chronic) Diabetic renal disease (Chronic) Chest pain, rule out acute myocardial infarction (Acute 11/01/13) Low blood magnesium (Acute 11/01/13) Tubular adenoma of colon (Acute 09/02/16) Medical History Arthritis BPH (benign prostatic hyperplasia) CAD (coronary artery disease) Cellulitis RIGHT LOWER LEG Chronic lower back pain CKD (chronic kidney disease), stage III Diabetes Diabetic polyneuropathy Erectile dysfunction Fatty infiltration of liver Foot drop Hearing loss History of removal of joint prosthesis of right knee due to infection History of seizures as a child Hx of myocardial infarction 10/2011 STRESS TEST COMPLETED 11/29/2019 Hyperlipidemia Microalbuminuria Morbid obesity Myalgia Onychomycosis Osteoarthritis Palliative care patient Paresthesias Perennial allergic rhinitis Sleep apnea Sleep apnea with use of continuous positive airway pressure (CPAP) Unsteady gait Venous insufficiency Vertigo Surgical History Carpal tunnel syndrome of right wrist S/P ECTR: 10/28/2022 colonoscopy (09/02/16) H/O heart artery stent X2 2014 H/O total knee replacement left knee 12/14/2019, right knee 01/16/2021 History of tonsillectomy and adenoidectomy Family History Maternal Aunt Colon cancer Maternal Aunt Colon cancer Father , 70s Heart disease Mother Lung cancer Brother Liver failure Son , tractor accident Accident caused by farm tractor Social History Smoking/Tobacco Use Status: Never Smoking risk assessment performed?: Yes Alcohol Intake: never Drug use: Never Substance use type: does not use Do you feel safe at home: Yes Do you feel safe in your relationship?: Yes Exam Narrative Exam Narrative: GEN: awake, alert, oriented 3. Pleasant, well groomed, interactive. HEAD: Normocephalic, atraumatic ENT: Mucous membranes moist, oropharynx unremarkable, External ear exam unremarkable EYES: PERRL, EOMI NECK: Full ROM, no JITENDRA, no menigismus CHEST/RESP: Nontender, cough noted. End expiratory scattered wheeze with cough. No significant rhonchi. CARDIOVASCULAR: RRR, no murmur, rub alfredo. 2+ Rad pulse bilateral ABDOMEN: Soft, nontender, no mass. +Bowel sounds EXT: Full ROM, trace symmetric pretibial edema, no rash Neuro: Grossly normal neurologic exam, conversant, interactive. Psych: Speech fluent, thoughts congruent, affect normal Course Vital Signs Vital signs: Vital Signs Temperature 36.5 C 12/02/22 07:22 Pulse 69 12/02/22 07:22 Respiratory Rate 20 12/02/22 07:22 Blood Pressure 137/56 L 12/02/22 07:22 Pulse Oximetry 94 12/02/22 07:22 Temperature 36.5 C 12/02/22 07:22 Temperature Source Skin 12/02/22 07:22 Pulse 61 12/02/22 07:47 Pulse 60 12/02/22 07:47 Respiratory Rate 18 12/02/22 07:47 Respiratory Effort Non-Labored 12/02/22 07:36 Respiratory Depth Normal 12/02/22 07:36 Blood Pressure 138/50 L 12/02/22 07:47 Blood Pressure Mean 72 12/02/22 07:47 Blood Pressure Position Supine 12/02/22 07:22 Pulse Oximetry 94 12/02/22 07:22 Oxygen Delivery Method Room Air 12/02/22 07:22 Oxygen Flow Rate 0 12/02/22 07:22 Pain Level 0 12/02/22 07:22 Lab/Test Results Lab/Test Results: Laboratory Tests Range/Units 12/02/22 07:40 WBC (4.4-10.8) 10^3/uL 12.17 H RBC (4.36-5.78) 10^6/uL 4.65 Hgb (13.5-17.5) g/dL 12.8 L Hct (40.0-50.0) % 39.7 L MCV (80-95) fL 85 MCH (27.0-33.0) pg 27.5 MCHC (32.0-36.0) % 32.2 RDW (11.8-14.1) % 14.6 H Plt Count (130-400) 10^3/uL 269 MPV (8.0-11.0) fL 9.2 Immature Gran % 0.7 Neutrophils % 88.1 Lymphocytes % 4.2 Monocytes % 5.7 Eosinophils % 0.9 Basophils % 0.4 Nucleated RBC % (0.0-0.3) % 0.0 Absolute Neutrophils (1.2-6.7) 10^3/uL 10.72 H Absolute Lymphocytes (1.2-3.4) 10^3/uL 0.51 L Absolute Monocytes (0.1-0.8) 10^3/uL 0.69 Absolute Eosinophils (0.0-0.7) 10^3/uL 0.11 Absolute Basophils (0.0-0.2) 10^3/uL 0.05
[2022-12-02] MEDS: Albuterol/Ipratropium 3 ML UPD VIAL UPD (08:29)
[2022-12-02] MEDS: guaiFENesin/CODEINE PHOSPHATE 10 ML CUP PO (08:29)
[2022-12-02 08:30] LABS: ALT 77 U/L (16-63); AST 54 U/L (15-37); Albumin 2.7 g/dL (3.4-5.0); Alkaline Phosphatase 229 U/L (46-116); Anion Gap 4.4 mmol/L (3-11); BUN 30 mg/dL (7-18); Bilirubin, Total 0.7 mg/dL (0.2-1.0); CO2 32.6 mmol/L (21.0-32.0); CREATININE 1.5 mg/dL (0.70-1.30); Calcium 9.3 mg/dL (8.5-10.1); Chloride 101 mmol/L (98-107); Estimated GFR 47.06 (mL/min/1.73m2); Glucose 157 mg/dL (74-106); Potassium 4.8 mmol/L (3.5-5.1); Sodium 138 mmol/L (136-145); Total Protein 7.8 g/dL (6.4-8.2); Troponin I < 50 ng/L (<or=60)
[2022-12-02 08:36] LABS: Magnesium 2.1 mg/dL (1.8-2.4); NT-proBNP 1481 pg/mL (<300)
[2022-12-02] MEDS: Cefpodoxime 200 MG TAB PO (08:37)
--- NOTE | 2022-12-02 09:11 | NUR.NOTE ---
Nursing Note: Referral faxed to PCP for pneumonia, in 1 to 2 weeks.
[2022-12-02] MEDS: Albuterol HFA 8 GM 60 PUFF INH IH (09:16)
== END 2022-12-02 09:28 | disposition home or self-care (01) ==
PROVIDERS: Student in an Organized Health Care Education/Training Program; Emergency Provider Emergency Medicine; PCP Family Medicine
DX: J18.9 Pneumonia, unspecified organism (principal); E11.42 Type 2 diabetes mellitus with diabetic polyneuropathy; E11.22 Type 2 diabetes mellitus with diabetic chronic kidney disease; N18.30 Chronic kidney disease, stage 3 unspecified; I25.10 Atherosclerotic heart disease of native coronary artery without angina pectoris; I25.2 Old myocardial infarction; Z95.5 Presence of coronary angioplasty implant and graft; R06.02 Shortness of breath
CPT/HCPCS: 36415; 80053; 93005; 94640; 99284; 71045; 83735; 83880; 84484; 85025; 93010; 99285; J7620

== ENCOUNTER 2022-12-04 22:59 | Observation (INO) | payer MEDICARE, SELFPAY ==
[2022-12-04] VITALS (12 sets, daily range): BP systolic 60–121; BP diastolic 41–56; PULSE 35–71; RESP 11–37; TEMP 36.3; O2SAT 88–94
--- NOTE | 2022-12-04 22:45 | RT.EKG_ITS ---
APPROVED REPORT Exam: Resting ECG Reason for Exam: unresponsive Patient Location: E HR:45 bpm ECG Measurements Heart Rate 45 AXIS FL 339 P 39 QRSd 99 QRS -15 QT 500 T -5 QTc 432 Conclusion Sinus bradycardia...rate< 60 Prolonged FL interval...FL >230, V-rate 30- [address] elevation, lateral leads...ST >0.06mV, I aVL V5 V6. Sinus. No STEMI. I have reviewed and interpreted ECG and agree with software generated interpretation.
--- NOTE | 2022-12-04 22:57 | ED.GENADUL_ITS ---
Discharge Plan Disposition Patient Disposition: Admit to [facility] Condition: Stable Discharge Details Clinical Impression: Hypoglycemia, Bradycardia, Pneumonia, Requires supplemental oxygen Primary Care Provider: Cameron Mcarthur ED Provider: Estrella Freeman Home Meds and New Rx's Prescriptions: No Action loperamide [Imodium A-D] 2 mg capsule 2 mg PO Q6H PRN lidocaine 5 % ointment 1 applic topical QHS insulin glargine [Lantus U-100 Insulin] 100 unit/mL solution 40 unit subcut QHS baclofen 5 mg tablet 5 mg PO QHS ropinirole 1 mg tablet 4 mg PO QHS Rx Instructions: administer 1-3 hours before bedtime magnesium oxide 400 mg (241.3 mg magnesium) tablet 800 mg PO DAILY vitamin B complex [B Complex-Vitamin B12] Tablet 1 tab PO DAILY apple cider vinegar 300 mg tablet 300 mg PO BID doxazosin [Cardura] 4 mg tablet 4 mg PO DAILY aspirin 81 mg capsule 81 mg PO DAILY gabapentin 300 mg capsule See Rx Instructions PO DAILY Rx Instructions: take 2 capsules by mouth every morning and and 3 capsules every evening PO daily; penicillin V potassium 500 mg tablet See Rx Instructions .ROUTE .COMPLEX Qty: 90 6RF Dose Instruction: TAKE 1 TABLET(500 MG) BY MOUTH THREE TIMES DAILY Rx Instructions: TAKE 1 TABLET(500 MG) BY MOUTH THREE TIMES DAILY losartan [Cozaar] 100 MG tablet 100 mg PO DAILY insulin lispro [Humalog KwikPen Insulin] 100 UNIT/ML insulin pen 30 unit SQ .SLIDING SCALE Jardiance 10 MG tablet 25 mg PO DAILY fluticasone propionate 50 mcg/actuation [place],Suspension 1 spray INTRANASAL DAILY cefpodoxime 200 mg tablet 200 mg PO BID 14 Days Qty: 28 0RF Rx Instructions: must administer with a meal/food guaifenesin 400 mg tablet 400 mg PO BID 10 Days Qty: 20 0RF hydrochlorothiazide 50 MG tablet 50 mg PO DAILY Qty: 0 0RF carvedilol 25 mg tablet 25 mg PO BID acetaminophen 500 mg tablet 1,000 mg PO TID Qty: 90 0RF ibuprofen 600 mg tablet 600 mg PO TID PRN (Reason: pain) Qty: 90 0RF Medical Decision Making <Estrella Freeman DO - Last Filed: 12/05/22 01:44> 2310 -- 77-year-old female with a history of morbid obesity, hypertension, hyperlipidemia, diabetes, coronary artery disease, obstructive sleep apnea, chronic kidney disease presents from home after family found unresponsive and EMS found hypoglycemic with glucose in the 50s and patient's slurred speech improved and became more awake after given supplemental glucose with improvement to 120. Records note that patient was seen here 2 days ago for 10 days of cough and congestion and diagnosed with walking pneumonia and sent home with cefpodoxime. Patient states his cough is no worse or better than it has been. He does state he has been eating less than usual and took 40 units of insulin instead of his usual 30 this evening. Vitals on arrival note an oxygen saturation of 88% on room air. O2 sat increased to mid 90s on 2 L nasal cannula. Heart rate 42, blood pressure 92/41 with normal respiratory rate and afebrile. Patient appears somewhat drowsy but answers questions appropriately. He has no focal deficits on exam. No facial droop or slurred speech. Fingerstick glucose on arrival 70s. We will continue D10 that was started per EMS and recheck glucose in 30 minutes. Suspect overall presentation likely hypoglycemia in the setting of decreased p.o. intake and increase in insulin administration also in the setting of current diagnosis of pneumonia. Will obtain screening labs, CT head, chest x-ray, fluvid. 2340 --glucose 99. Nursing called me to room as patient's heart rate decreased to 30s and blood pressure systolic 60s. Patient had been coughing during this time suspect it may have been a vagal response as cuff was readjusted and repeat checked and blood pressure 107/58. His heart rate is now 50s. EKG notes a rate of 45, sinus and no ischemic findings. Discussed with nursing supervisor paper testing and there are no beds available here but may be discharges in the morning. She contacted local area hospitals and there are currently no beds available at [facility] or [facility]. department secretary called [facility] in [facility] and there are no beds available. 0100 --labs and imaging reviewed. White blood cell normal at 10. Troponin within normal limits. Urinalysis negative for infection. Fluvid negative. CT head negative for acute findings. Chest x-ray notes stable appearance of pneumonia noted 2 days ago. Patient reassessed and he is continuing to require supplemental oxygen, once titrated down and placed back on room air, O2 sat 88%. We will continue nasal cannula oxygen to keep O2 sat greater than 90%. His heart rate ranges between high 30s to low 50s. He is on carvedilol. Repeat EKG notes a first-degree block. His blood pressure has remained stable. Pacer pads placed. We will continue to monitor. Will admit for hypoglycemia in the setting of pneumonia requiring supplemental oxygen and telemetry monitoring for bradycardia. Patient has history of sleep apnea and appears to be more bradycardic with sleeping. Will place on CPAP. Discussed again with nursing supervisor paper testing and there would likely be discharges in the morning. As there are no surrounding hospitals, I do not see an indication for transfer to a tertiary facility in another state, will admit here and board in the ER while awaiting bed availability. Case discussed with hospitalist who accepts patient for admission. Medical Records Medical records reviewed: Yes I reviewed the patient's medical records. Imaging Data Radiologic Study: Radiologist's impression: CT Head Without Contrast Exam date and time: 12/04/2022 11:36 PM Age: 77 years old Clinical indication: Stroke-like symptoms; Altered mental status/memory loss and speech disturbance; Additional info: Unresponsive episode, R/O acute CVA TECHNIQUE: Imaging protocol: Computed tomography of the head without contrast. Radiation optimization: All CT scans at this facility use at least one of these dose optimization techniques: automated exposure control; mA and/or kV adjustment per patient size (includes targeted exams where dose is matched to clinical indication); or iterative reconstruction. Other technique: STROKE PROTOCOL was implemented. COMPARISON: CT HEAD WO 09/27/2021 2:29 PM FINDINGS: Brain:? Mild volume loss No hemorrhage.? Mild white matter disease. No mass effect. Cerebral ventricles: No ventriculomegaly. Paranasal sinuses:? Fluid levels and mucosal thickening in the paranasal sinuses Mastoid air cells: Visualized mastoid air cells are well aerated. Bones/joints: Unremarkable. No acute fracture. Soft tissues: Unremarkable. IMPRESSION: No acute intracranial abnormality. Presumed inflammatory changes in the paranasal sinuses. XR Chest Exam date and time: 12/04/2022 11:44 PM Age: 77 years old Clinical indication: Cough; Additional info: Cough, SOB, has pneumonia, assess for worsening TECHNIQUE: Imaging protocol: Radiologic exam of the chest. Views: 2 views. COMPARISON: CR XR PORTABLE CHEST AP 12/02/2022 7:57 AM FINDINGS: Lungs:? Left greater than right opacities are grossly stable. Pleural spaces: No pleural effusion. No pneumothorax. Heart/Mediastinum:? Grossly stable. Bones/joints:? Grossly stable. IMPRESSION: Grossly stable appearance to left greater than right pneumonia Lab Data Lab results reviewed: Yes I reviewed the patient's lab results. Labs: 12/05/22 00:11 Sputum Sputum Culture - Pending 12/05/22 00:11 Sputum Gram Stain - Final Laboratory Tests Range/Units 12/04/22 12/04/22 12/04/22 23:15 23:15 23:15 WBC (4.4-10.8) 10^3/uL 10.77 RBC (4.36-5.78) 10^6/uL 4.47 Hgb (13.5-17.5) g/dL 11.9 L Hct (40.0-50.0) % 38.1 L MCV (80-95) fL 85 MCH (27.0-33.0) pg 26.6 L MCHC (32.0-36.0) % 31.2 L RDW (11.8-14.1) % 14.6 H Plt Count (130-400) 10^3/uL 268 MPV (8.0-11.0) fL 9.0 Immature Gran % 0.6 Neutrophils % 87.6 Lymphocytes % 2.9 Monocytes % 6.2 Eosinophils % 2.3 Basophils % 0.4 Nucleated RBC % (0.0-0.3) % 0.0 Absolute Neutrophils (1.2-6.7) 10^3/uL 9.44 H Absolute Lymphocytes (1.2-3.4) 10^3/uL 0.31 L Absolute Monocytes (0.1-0.8) 10^3/uL 0.67 Absolute Eosinophils (0.0-0.7) 10^3/uL 0.25 Absolute Basophils (0.0-0.2) 10^3/uL 0.04 VBG pH (7.31-7.41) VBG pCO2 (41-51) mmHg VBG pO2 mmHg VBG HCO3 (23-28) mmol/L VBG Total CO2 (24-29) mmol/L VBG O2 Saturation % VBG Base Excess (-2-3) mmol/L Sodium (136-145) mmol/L 136 Potassium (3.5-5.1) mmol/L 4.0 Chloride (98-107) mmol/L 99 Carbon Dioxide (21.0-32.0) mmol/L 33.0 H Anion Gap (3-11) mmol/L 4.0 BUN (7-18) mg/dL 47 H Creatinine (0.70-1.30) mg/dL 1.6 H Est GFR (CKD-EPI 2020) (mL/min/1.73m2) 43.56 Glucose (74-106) mg/dL 75 Calcium (8.5-10.1) mg/dL 8.8 Magnesium (1.8-2.4) mg/dL 2.5 H Total Bilirubin (0.2-1.0) mg/dL 0.4 AST (15-37) U/L 65 H ALT (16-63) U/L 71 H Alkaline Phosphatase (46-116) U/L 212 H Troponin I (<or=60) ng/L < 50 Total Protein (6.4-8.2) g/dL 7.2 Albumin (3.4-5.0) g/dL 2.5 L Urine Color (Yellow) Urine Clarity (Clear) Urine pH (5-8) Ur Specific [place] (1.005-1.025) Urine Protein (Negative) mg/dL Urine Ketones (Negative) mg/dL Urine Blood (Negative) Urine Nitrite (Negative) Urine Bilirubin (Negative) Urine Urobilinogen (Up TO 0.2) EU/dL Ur Leukocyte Esterase (Negative) Urine Glucose (Negative) mg/dL COVID-19 Source Nasopharynx SARS-CoV-2 (PCR) (Negative) Negative Influenza Type A (PCR) (Negative) Negative Influenza Type B (PCR) (Negative) Negative RSV (PCR) (Negative) Negative Range/Units 12/05/22 12/05/22 00:05 00:40 WBC (4.4-10.8) 10^3/uL RBC (4.36-5.78) 10^6/uL Hgb (13.5-17.5) g/dL Hct (40.0-50.0) % MCV (80-95) fL MCH (27.0-33.0) pg MCHC (32.0-36.0) % RDW (11.8-14.1) % Plt Count (130-400) 10^3/uL MPV (8.0-11.0) fL Immature Gran % Neutrophils % Lymphocytes % Monocytes % Eosinophils % Basophils % Nucleated RBC % (0.0-0.3) % Absolute Neutrophils (1.2-6.7) 10^3/uL Absolute Lymphocytes (1.2-3.4) 10^3/uL Absolute Monocytes (0.1-0.8) 10^3/uL Absolute Eosinophils (0.0-0.7) 10^3/uL Absolute Basophils (0.0-0.2) 10^3/uL VBG pH (7.31-7.41) 7.36 VBG pCO2 (41-51) mmHg 56 H VBG pO2 mmHg 40 VBG HCO3 (23-28) mmol/L 31 H VBG Total CO2 (24-29) mmol/L 29 VBG O2 Saturation % 68 VBG Base Excess (-2-3) mmol/L 6 H Sodium (136-145) mmol/L Potassium (3.5-5.1) mmol/L Chloride (98-107) mmol/L Carbon Dioxide (21.0-32.0) mmol/L Anion Gap (3-11) mmol/L BUN (7-18) mg/dL Creatinine (0.70-1.30) mg/dL Est GFR (CKD-EPI 2020) (mL/min/1.73m2) Glucose (74-106) mg/dL Calcium (8.5-10.1) mg/dL Magnesium (1.8-2.4) mg/dL Total Bilirubin (0.2-1.0) mg/dL AST (15-37) U/L ALT (16-63) U/L Alkaline Phosphatase (46-116) U/L Troponin I (<or=60) ng/L Total Protein (6.4-8.2) g/dL Albumin (3.4-5.0) g/dL Urine Color (Yellow) Yellow Urine Clarity (Clear) Clear Urine pH (5-8) 6.0 Ur Specific [place] (1.005-1.025) 1.015 Urine Protein (Negative) mg/dL Negative Urine Ketones (Negative) mg/dL Negative Urine Blood (Negative) Negative Urine Nitrite (Negative) Negative Urine Bilirubin (Negative) Negative Urine Urobilinogen (Up TO 0.2) EU/dL 0.2 Ur Leukocyte Esterase (Negative) Negative Urine Glucose (Negative) mg/dL 500 H COVID-19 Source SARS-CoV-2 (PCR) (Negative) Influenza Type A (PCR) (Negative) Influenza Type B (PCR) (Negative) RSV (PCR) (Negative) ECG Data Attestation: I personally reviewed and interpreted this ECG (s) as follows: Interpretation: #1 -- Rate of 45, sinus, first degree block, no STEMI. #2 -- Rate of 39, first-degree block, no ischemic findings. <JOURDAN Doss - Last Filed: 12/05/22 09:59> 2310 -- 77-year-old female with a history of morbid obesity, hypertension, hyperlipidemia, diabetes, coronary artery disease, obstructive sleep apnea, chronic kidney disease presents from home after family found unresponsive and EMS found hypoglycemic with glucose in the 50s and patient's slurred speech improved and became more awake after given supplemental glucose with improvement to 120. Records note that patient was seen here 2 days ago for 10 days of cough and congestion and diagnosed with walking pneumonia and sent home with cefpodoxime. Patient states his cough is no worse or better than it has been. He does state he has been eating less than usual and took 40 units of insulin instead of his usual 30 this evening. Vitals on arrival note an oxygen saturation of 88% on room air. O2 sat increased to mid 90s on 2 L nasal cannula. Heart rate 42, blood pressure 92/41 with normal respiratory rate and afebrile. Patient appears somewhat drowsy but answers questions appropriately. He has no focal deficits on exam. No facial droop or slurred speech. Fingerstick glucose on arrival 70s. We will continue D10 that was started per EMS and recheck glucose in 30 minutes. Suspect overall presentation likely hypoglycemia in the setting of decreased p.o. intake and increase in insulin administration also in the setting of current diagnosis of pneumonia. Will obtain screening labs, CT head, chest x-ray, fluvid. 2340 --glucose 99. Nursing called me to room as patient's heart rate decreased to 30s and blood pressure systolic 60s. Patient had been coughing during this time suspect it may have been a vagal response as cuff was readjusted and repeat checked and blood pressure 107/58. His heart rate is now 50s. EKG notes a rate of 45, sinus and no ischemic findings. Discussed with nursing supervisor paper testing and there are no beds available here but may be discharges in the morning. She contacted local area hospitals and there are currently no beds available at [facility] or [facility]. department secretary called [facility] in [facility] and there are no beds available. 0100 --labs and imaging reviewed. White blood cell normal at 10. Troponin within normal limits. Urinalysis negative for infection. Fluvid negative. CT head negative for acute findings. Chest x-ray notes stable appearance of pneumonia noted 2 days ago. Patient reassessed and he is continuing to require supplemental oxygen, once titrated down and placed back on room air, O2 sat 88%. We will continue nasal cannula oxygen to keep O2 sat greater than 90%. His heart rate ranges between high 30s to low 50s. He is on carvedilol. Repeat EKG notes a first-degree block. His blood pressure has remained stable. Pacer pads placed. We will continue to monitor. Will admit for hypoglycemia in the setting of pneumonia requiring supplemental oxygen and telemetry monitoring for bradycardia. Patient has history of sleep apnea and appears to be more bradycardic with sleeping. Will place on CPAP. Discussed again with nursing supervisor paper testing and there would likely be discharges in the morning. As there are no surrounding hospitals, I do not see an indication for transfer to a tertiary facility in another state, will admit here and board in the ER while awaiting bed availability. Case discussed with hospitalist who accepts patient for admission. 0958: Colin Pereira PA-C I clicked on this note in error which then prompted me to cosign the chart. I had no interaction with the patient or direct decision making in his care. HPI <Estrella Freeman DO - Last Filed: 12/05/22 01:44> General Mode of arrival: EMS . Date/Time Provider Initiated Documentation: 12/04/22 23:09 . Limitations to Documentation: no limitations . Information obtained by: patient . HPI Narrative: Patient is a 77-year-old male with a history of morbid obesity, diabetes, hypertension, hyperlipidemia, obstructive sleep apnea, coronary artery disease, and chronic kidney disease who presents from home after found unresponsive by family and hypoglycemic per EMS with glucose in the 50s. He was given supplemental glucose per EMS and glucose increased to 120s and patient became more responsive. EMS reported his slurred speech resolved once his sugar improved. Patient was seen here 2 days ago and diagnosed with walking pneumonia and placed on cefpodoxime which she has been taking. He states his cough is no better or worse than usual. He states he is coughing up yellow sputum. He states he has been eating slightly less than usual since he has been sick and often takes 30 units of insulin in the evening but states he took 40 units this evening and ate less than usual today. Patient states he remembers feeling weak with slurred speech. He denies any headache, chest pain, difficulty breathing, vomiting or diarrhea. Related Data Home Medications Medication Instructions Recorded Confirmed losartan 100 mg tablet (Cozaar) 100 mg PO DAILY 11/01/13 12/05/22 insulin lispro 100 unit/mL 30 unit SQ .SLIDING SCALE 09/01/16 12/05/22 subcutaneous pen (Humalog KwikPen (U-100) Insulin) empagliflozin 10 mg tablet 25 mg PO DAILY 05/22/18 12/05/22 (Jardiance) fluticasone propionate 50 1 spray intranasal DAILY 02/10/20 12/05/22 mcg/actuation nasal spray,suspension hydrochlorothiazide 50 mg tablet 50 mg PO DAILY #0 tab-caps 02/20/20 12/05/22 carvedilol 25 mg tablet 25 mg PO BID 01/16/21 12/05/22 lidocaine 5 % topical ointment 1 applic topical QHS 09/20/21 12/05/22 loperamide 2 mg capsule (Imodium 2 mg PO Q6H PRN 09/20/21 12/05/22 A-D) aspirin 81 mg capsule 81 mg PO DAILY 02/06/22 12/05/22 doxazosin 4 mg tablet (Cardura) 4 mg PO DAILY 02/06/22 12/05/22 gabapentin 300 mg capsule See Rx Instructions PO DAILY 03/12/22 12/05/22 penicillin V potassium 500 mg See Rx Instructions .Route 05/13/22 12/05/22 tablet .COMPLEX #90 tabs baclofen 5 mg tablet 5 mg PO QHS 07/21/22 12/05/22 insulin glargine 100 unit/mL 40 unit subcut QHS 07/21/22 12/05/22 subcutaneous solution (Lantus U-100 Insulin) magnesium oxide 400 mg (241.3 mg 800 mg PO DAILY 07/21/22 12/05/22 magnesium) tablet ropinirole 1 mg tablet 4 mg PO QHS 07/21/22 12/05/22 apple cider vinegar 300 mg tablet 300 mg PO BID 07/29/22 12/05/22 vitamin B complex (B 1 tab PO DAILY 09/25/22 12/04/22 Complex-Vitamin B12 tablet) acetaminophen 500 mg tablet 1,000 mg PO TID #90 tabs 10/28/22 12/05/22 ibuprofen 600 mg tablet 600 mg PO TID PRN pain #90 tabs 10/28/22 12/05/22 cefpodoxime 200 mg tablet 200 mg PO BID 14 days #28 tabs 12/02/22 12/05/22 guaifenesin 400 mg tablet 400 mg PO BID 10 days #20 tabs 12/02/22 12/05/22 Previous Rx's Medication Instructions Recorded hydrochlorothiazide 50 mg tablet 50 mg PO DAILY #0 tab-caps 02/20/20 penicillin V potassium 500 mg See Rx Instructions .Route 05/13/22 tablet .COMPLEX #90 tabs acetaminophen 500 mg tablet 1,000 mg PO TID #90 tabs 10/28/22 ibuprofen 600 mg tablet 600 mg PO TID PRN pain #90 tabs 10/28/22 cefpodoxime 200 mg tablet 200 mg PO BID 14 days #28 tabs 12/02/22 guaifenesin 400 mg tablet 400 mg PO BID 10 days #20 tabs 12/02/22 Allergies Allergy/AdvReac Type Severity Reaction Status Date / Time amlodipine besylate AdvReac Mild edema Verified 12/02/22 07:28 [From Norvasc] enalapril maleate AdvReac Mild cough Verified 12/02/22 07:28 [From Vasotec] enalaprilat dihydrate AdvReac Mild cough Verified 12/02/22 07:28 [From Vasotec] pravastatin sodium AdvReac Mild myalgia Verified 12/02/22 07:28 [From Pravachol] from Lipitor rosuvastatin [From Crestor] AdvReac Mild Myalgia Verified 12/02/22 07:28 General Stated Complaint: GenMedical TOGN: 3 Review of Systems <Estrella J Bugbee, DO - Last Filed: 12/05/22 01:44> All systems reviewed & are unremarkable except as noted in HPI and below Constitutional Constitutional: Reports as per HPI, Denies chills and Denies fever(s) Eyes Eyes: Denies blurry vision ENT Ears, Nose, Mouth, and Throat: Denies dizziness, Denies sore throat and Denies throat swelling Cardiovascular Cardiovascular: Denies chest pain and Denies dyspnea Respiratory Respiratory: Reports cough and Denies dyspnea Gastrointestinal Gastrointestinal: Denies abdominal pain, Denies diarrhea and Denies vomiting Genitourinary Genitourinary: Denies hematuria and Denies dysuria Musculoskeletal Musculoskeletal: Denies back pain and Denies numbness Integumentary/Breasts Skin/Breast: Denies lesions and Denies rash Neurologic Neurologic: Denies dizziness, Denies localized weakness and Denies numbness Allergic/Immunologic Allergic/Immunologic: Denies throat swelling PFSH <Estrella Freeman DO - Last Filed: 12/05/22 01:44> All Active Problems Walking pneumonia (Acute) Hypoglycemia (Acute) Bradycardia (Acute) Pneumonia (Acute) Requires supplemental oxygen (Acute) Nail dystrophy (Acute) Lumbar stenosis (Acute) Carpal tunnel syndrome of left wrist (Acute) Bilateral hand numbness (Acute) Foot drop, bilateral (Acute) Diabetic neuropathy (Acute) Left sided sciatica (Acute) Impairment of speech discrimination (Acute) Asymmetrical sensorineural hearing loss (Acute) DVT prophylaxis (Acute) Sepsis (Acute) Infection of total right knee replacement (Acute) S/p irrigation and debridement; poly exchange; arthrotomy repair DOS: 10/04/2021 Advance care planning (Acute) Hypertension (Chronic) Bacteremia (Acute) Hypoxemia (Acute) Tubulovillous adenoma polyp of colon (Chronic) Noted by colonoscopy. Asymmetrical sensorineural hearing loss (Acute) History of total right knee replacement (Acute 01/16/21) First degree heart block (Acute) Discharge planning issues (Acute) DVT prophylaxis (Acute) Renal insufficiency (Chronic) Abnormal LFTs (Chronic) Secondary to fartty infiltrate of the liver. Cellulitis (Acute) History of total left knee replacement (TKR) (Acute 12/14/19) Dr. Wilson s/p debridement and poly exchange 02/10/20 Diabetes mellitus type 2 (Chronic) Since approximately 1997. On insulin thereapy. Last hemoglobin A1c 6.5% March 2013. 11-01-2013: Most recent hemoglobin A1c was 6.6 ? date. Hyperlipidemia (Chronic) Obstructive sleep apnea syndrome (Chronic) Nocturnal CPAP Benign prostatic hyperplasia (Chronic) Obesity (Chronic) Benign hypertension (Chronic) Diabetic renal disease (Chronic) Chest pain, rule out acute myocardial infarction (Acute 11/01/13) Low blood magnesium (Acute 11/01/13) Tubular adenoma of colon (Acute 09/02/16) Medical History Arthritis BPH (benign prostatic hyperplasia) CAD (coronary artery disease) Cellulitis RIGHT LOWER LEG Chronic lower back pain CKD (chronic kidney disease), stage III Diabetes Diabetic polyneuropathy Erectile dysfunction Fatty infiltration of liver Foot drop Hearing loss History of removal of joint prosthesis of right knee due to infection History of seizures as a child Hx of myocardial infarction 10/2011 STRESS TEST COMPLETED 11/29/2019 Hyperlipidemia Microalbuminuria Morbid obesity Myalgia Onychomycosis Osteoarthritis Palliative care patient Paresthesias Perennial allergic rhinitis Sleep apnea Sleep apnea with use of continuous positive airway pressure (CPAP) Unsteady gait Venous insufficiency Vertigo Surgical History Carpal tunnel syndrome of right wrist S/P ECTR: 10/28/2022 colonoscopy (09/02/16) H/O heart artery stent X2 2013 H/O total knee replacement left knee 12/14/2019, right knee 01/16/2021 History of tonsillectomy and adenoidectomy Family History Maternal Aunt Colon cancer Maternal Aunt Colon cancer Father , 70s Heart disease Mother Lung cancer Brother Liver failure Son , tractor accident Accident caused by farm tractor Social History Smoking/Tobacco Use Status: Never Smoking risk assessment performed?: Yes Alcohol Intake: never Drug use: Never Substance use type: does not use Do you feel safe at home: Yes Do you feel safe in your relationship?: Yes Exam <Estrella Freeman DO - Last Filed: 12/05/22 01:44> Const General: cooperative and no acute distress Nutritional Appearance: obese morbidly obese Orientation: awake and oriented x3 HENMT Head: normal to inspection Teeth and gingiva: poor dentition Eyes General: appearance normal, both eyes and all related structures Pupils: PERRL EOM: EOM intact bilaterally Neck Neck: normal visual inspection and No submandibular swelling Lymphatic: no lymphadenopathy noted Chest Chest: normal inspection of the chest and no tenderness Resp Effort & Inspection: normal respiratory effort and able to speak in complete sentences Auscultation: clear to auscultation bilaterally Cardio Rate: bradycardic Rhythm: regular rhythm GI Inspection: normal to inspection and obesity Palpation: soft, not firm, not rigid and nontender Auscultation: hypoactive bowel sounds Back/Spine/Pelvis Thoracic/Lumbar Spine: thoracic and lumbar spine normal to inspection Skin General skin exam: no rashes or lesions noted Neuro General: patient alert, patient awake and patient oriented x3 Cognition: normal cognition Speech: speech normal Motor: muscle tone normal throughout Sensory Exam: no sensory deficits noted Extrem General: normal to inspection, full ROM, capillary refill normal, no calf tenderness bilaterally and no edema Psych Appearance: grossly normal Mental Status: mental status grossly normal Speech and Movement: speech and movement normal Affect: normal affect
--- NOTE | 2022-12-04 23:00 | DI.RAD_ITS ---
Exam(s) XR CHEST 2V PA LATERAL EXAM: XR CHEST 2V PA LATERAL CLINICAL HISTORY: cough, sob, has pneumonia, assess for worsening TECHNIQUE: 2D digital imaging was performed. COMPARISON: CR XR PORTABLE CHEST AP from 12/02/2022 FINDINGS: HEART: Mildly enlarged, stable. Aorta: Tortuous. PULMONARY VASCULATURE: Normal. LUNGS: No definite change in the right upper and left upper lobe infiltrates given differences in pen etration. Lungs suboptimally inflated on AP view.. PLEURAL SPACE: No pleural effusion or pneumothorax. BONE:Unremarkable for age. IMPRESSION: Stable bilateral infiltrates. DATA REPOSITORY: RADIATION DOSE DELIVERED:
--- NOTE | 2022-12-04 23:00 | DI.CT_ITS ---
Exam(s) CT HEAD WO EXAM: CT HEAD WO CLINICAL HISTORY: unresponsive episode, r/o acute cva. TECHNIQUE: Imaging Protocol: Axial computed tomography images with coronal and sagittal reformatted images were created and reviewed COMPARISON: CT CT HEAD WO from 09/27/2021 FINDINGS: Ventricles and Extra axial spaces: Normal in size and morphology for the patient's age. Hemorrhage: None. Cerebral parenchyma: Normal for age. Midline shift: None. Brainstem/Cerebellum: Normal. Calvarium: Normal. Visualized Paranasal sinuses/Mastoids: Air-fluid levels are present in both maxillary sinuses, right greater than left. There is also mucosal thickening within ethmoid sinuses and partial opacification of the sphenoid sinuses. Soft Tissues: Unremarkable. IMPRESSION: No acute intracranial process.Significant sinus disease. RADIATION DOSE DELIVERED: 828.61mGy.cm Total DLP DATA REPOSITORY: All CT scans at this facility are submitted to the National Radiology Data Registry (NRDR) Dose Index Registry (DIR) with the [employer] (A[employer]). RADIATION OPTIMIZATION: All CT scans at this facility use at least one of these dose optimization te chniques: automated exposure control; mA and/or kV adjustment per patient size (includes targeted exa ms where dose is matched to clinical indication); or iterative reconstruction.
[2022-12-04] MEDS: Normal Saline 500 ML IV (23:30)
[2022-12-04 23:33] LABS: Abs Immature Grans 0.06 10^3/uL (0.0-0.06); Absolute Basophil Count 0.04 10^3/uL (0.0-0.2); Absolute Eosinophil Count 0.25 10^3/uL (0.0-0.7); Absolute Lymphocyte Count 0.31 10^3/uL (1.2-3.4); Absolute Monocyte Count 0.67 10^3/uL (0.1-0.8); Absolute Neutrophil Count 9.44 10^3/uL (1.2-6.7); Basophils % 0.4; Eosinophils % 2.3; HCT 38.1 % (40.0-50.0); HGB 11.9 g/dL (13.5-17.5); Immature Grans % 0.6; Lymphocytes % 2.9; MCH 26.6 pg (27.0-33.0); MCHC 31.2 % (32.0-36.0); MCV 85 fL (80-95); Monocytes % 6.2; Neutrophils % 87.6; Platelet Count 268 10^3/uL (130-400); RBC 4.47 10^6/uL (4.36-5.78); RDW 14.6 % (11.8-14.1); RDW-SD 45.1 fL; WBC 10.77 10^3/uL (4.4-10.8)
[2022-12-04 23:51] LABS: ALT 71 U/L (16-63); AST 65 U/L (15-37); Albumin 2.5 g/dL (3.4-5.0); Alkaline Phosphatase 212 U/L (46-116); BUN 47 mg/dL (7-18); Bilirubin, Total 0.4 mg/dL (0.2-1.0); CREATININE 1.6 mg/dL (0.70-1.30); Calcium 8.8 mg/dL (8.5-10.1); Chloride 99 mmol/L (98-107); Estimated GFR 43.56 (mL/min/1.73m2); Glucose 75 mg/dL (74-106); Magnesium 2.5 mg/dL (1.8-2.4); Sodium 136 mmol/L (136-145); Total Protein 7.2 g/dL (6.4-8.2); Troponin I < 50 ng/L (<or=60)
[2022-12-05] VITALS (137 sets, daily range): BP systolic 98–145; BP diastolic 44–100; PULSE 35–86; RESP 0–24; TEMP 36.4–37.8; O2SAT 87–98
[2022-12-05 00:09] LABS: COVID-19 PCR Negative (Negative); Influenza A PCR Negative (Negative); Influenza B PCR Negative (Negative); RSV PCR Negative (Negative)
[2022-12-05 00:09] LABS: BE (Venous) 6 mmol/L (-2-3); HCO3 (Venous) 31 mmol/L (23-28); O2 Sat (Venous) 68 %; TCO2 (Venous) 29 mmol/L (24-29); pCO2 (Venous) 56 mmHg (41-51); pH (Venous) 7.36 (7.31-7.41); pO2 (Venous) 40 mmHg
[2022-12-05 00:11] LABS: Source Nasopharynx
--- NOTE | 2022-12-05 00:30 | DI.VRAD_ITS ---
PROCEDURE INFORMATION: Exam: CT Head Without Contrast Exam date and time: 12/04/2022 11:36 PM Age: 77 years old Clinical indication: Stroke-like symptoms; Altered mental status/memory loss and speech disturbance; Additional info: Unresponsive episode, R/O acute CVA TECHNIQUE: Imaging protocol: Computed tomography of the head without contrast. Radiation optimization: All CT scans at this facility use at least one of these dose optimization techniques: automated exposure control; mA and/or kV adjustment per patient size (includes targeted exams where dose is matched to clinical indication); or iterative reconstruction. Other technique: STROKE PROTOCOL was implemented. COMPARISON: CT HEAD WO 09/27/2021 2:29 PM FINDINGS: Brain: Mild volume loss No hemorrhage. Mild white matter disease. No mass effect. Cerebral ventricles: No ventriculomegaly. Paranasal sinuses: Fluid levels and mucosal thickening in the paranasal sinuses Mastoid air cells: Visualized mastoid air cells are well aerated. Bones/joints: Unremarkable. No acute fracture. Soft tissues: Unremarkable. IMPRESSION: No acute intracranial abnormality. Presumed inflammatory changes in the paranasal sinuses. ASSESSMENT: ASPECTS ([place] Stroke Program Early CT Score) is 10. Dictated and Authenticated by: Jack Carreon MD. Ordering:RENALDO De La Rosa MD
--- NOTE | 2022-12-05 00:30 | DI.VRAD_ITS ---
PROCEDURE INFORMATION: Exam: XR Chest Exam date and time: 12/04/2022 11:44 PM Age: 77 years old Clinical indication: Cough; Additional info: Cough, SOB, has pneumonia, assess for worsening TECHNIQUE: Imaging protocol: Radiologic exam of the chest. Views: 2 views. COMPARISON: CR XR PORTABLE CHEST AP 12/02/2022 7:57 AM FINDINGS: Lungs: Left greater than right opacities are grossly stable. Pleural spaces: No pleural effusion. No pneumothorax. Heart/Mediastinum: Grossly stable. Bones/joints: Grossly stable. IMPRESSION: Grossly stable appearance to left greater than right pneumonia Dictated and Authenticated by: Jack Carreon MD. Ordering:RENALDO De La Rosa MD
[2022-12-05 00:47] LABS: Bilirubin Negative (Negative); Blood Negative (Negative); Clarity Clear (Clear); Glucose 500 mg/dL (Negative); Ketones Negative (Negative); Leukocyte Esterase Negative (Negative); Nitrite Negative (Negative); Specific Gravity 1.015 (1.005-1.025); Urobilinogen 0.2 EU/dL (Up TO 0.2)
--- NOTE | 2022-12-05 01:00 | RT.EKG_ITS ---
APPROVED REPORT Exam: Resting ECG Reason for Exam: bradycardia Patient Location: I HR:39 bpm ECG Measurements Heart Rate 39 AXIS DE 370 P 21 QRSd 106 QRS -19 QT 547 T 0 QTc 443 Conclusion Bradycardia with irregular rate...V-rate 33- 49, mean < 60 Prolonged DE interval...DE >230, V-rate 30- 49. Sinus. Prolonged DE. No STEMI. I have reviewed and interpreted ECG and agree with software generated interpretation.
--- NOTE | 2022-12-05 05:33 | W.PM.HP.N ---
Date of service: 12/05/22 Time of Service: 05:34 Assessment and Plan Assessment and plan (1) Pneumonia: Start date: 12/05/22 Status: Acute Assessment and plan: This is 77-year-old gentleman seen in the ED for pneumonia and initiated on cefpodoxime now returning with hypoxemia and hypoglycemia with overtreatment of his underlying diabetes mellitus. He also has bradycardia with adverse reaction to his usual beta-nuno. He will continue on cefpodoxime with oxygen supplementation as needed weaning as tolerated. Expand IV antibiotics if patient is not responding patient did well with observation. And discharged home once he is more awake and oxygenating better. He is a full code. (2) Hypoxemia: Start date: 12/05/22 Status: Acute Assessment and plan: O2 supplementation as needed weaning to room air before discharge home. Patient is obese with a history of QUETA and needs to be more awake and ambulating for this to be accomplished. (3) Hypoglycemia: Start date: 12/05/22 Status: Acute Assessment and plan: Patient is being overtreated for his diabetes while acutely ill. He has decreased intake at home. Hold usual insulin treatment and check glucometers AC at bedtime with moderate dose short acting insulin coverage. Return to his usual regimen with modification if needed at discharge. (4) Diabetes mellitus type 2: Status: Chronic Assessment and plan: Hold usual medical regimen and only cover mealtime hyperglycemia. Patient is hypoglycemic upon presentation but improving and is eating better. He did take a larger dose of Lantus than usual and this appeared to be by mistake prior to admission. Diabetes education should be ongoing. History of Present Illness History of Present Illness Chief Complaint: Altered mental status with confusion, hypoglycemia Narrative: This is a 77-year-old male patient with morbid obesity, hypertension, diabetes with history of CAD and hyperlipidemia as well as obstructive sleep apnea and chronic edema with skin changes over the lower extremities. He also has CKD. He was found unresponsive at home and had taken a larger dose of his long-acting insulin than usual with not eating well and was hypoglycemic. He also was found to be hypoxic with a recent diagnosis of pneumonia on cefpodoxime and at home. He has been to the ED a few days prior to this admission. He had bradycardia and oxygen needs as well as hypoglycemia prompting transfer to the ED where patient was treated for all of these problems. His carvedilol was held and he did respond to IV fluid resuscitation with dextrose and holding his usual insulin. He did sleep some during the night and was feeling slightly better but was not able to go home. He presented to the ED 2 days prior with 10 days of cough and congestion and continues to have a cough with some production of sputum. He was bradycardic below 50 with low blood pressure but not requiring resuscitation other than fluids and his glucose was below 50. On O2 in the ED he required 2 L nasal cannula to keep his pulse oximeter in the mid 90% otherwise he would drop into the mid 80% range of pulse oximeter. The patient offers no further history and is somewhat vague. He is a full code. Review of Systems Narrative: 13 point review of systems otherwise unrevealing or stable. Patient is a vague historian. PFSH All Active Problems Walking pneumonia (Acute) Hypoglycemia (Acute) Bradycardia (Acute) Pneumonia (Acute) Requires supplemental oxygen (Acute) Nail dystrophy (Acute) Lumbar stenosis (Acute) Carpal tunnel syndrome of left wrist (Acute) Bilateral hand numbness (Acute) Foot drop, bilateral (Acute) Diabetic neuropathy (Acute) Left sided sciatica (Acute) Impairment of speech discrimination (Acute) Asymmetrical sensorineural hearing loss (Acute) DVT prophylaxis (Acute) Sepsis (Acute) Infection of total right knee replacement (Acute) S/p irrigation and debridement; poly exchange; arthrotomy repair DOS: 10/04/2021 Advance care planning (Acute) Hypertension (Chronic) Bacteremia (Acute) Hypoxemia (Acute) Tubulovillous adenoma polyp of colon (Chronic) Noted by colonoscopy. Asymmetrical sensorineural hearing loss (Acute) History of total right knee replacement (Acute 01/16/21) First degree heart block (Acute) Discharge planning issues (Acute) DVT prophylaxis (Acute) Renal insufficiency (Chronic) Abnormal LFTs (Chronic) Secondary to fartty infiltrate of the liver. Cellulitis (Acute) History of total left knee replacement (TKR) (Acute 12/14/19) Dr. Wilson s/p debridement and poly exchange 02/10/20 Diabetes mellitus type 2 (Chronic) Since approximately 1997. On insulin thereapy. Last hemoglobin A1c 6.5% March 2013. 11-01-2013: Most recent hemoglobin A1c was 6.6 ? date. Hyperlipidemia (Chronic) Obstructive sleep apnea syndrome (Chronic) Nocturnal CPAP Benign prostatic hyperplasia (Chronic) Obesity (Chronic) Benign hypertension (Chronic) Diabetic renal disease (Chronic) Chest pain, rule out acute myocardial infarction (Acute 11/01/13) Low blood magnesium (Acute 11/01/13) Tubular adenoma of colon (Acute 09/02/16) Medical History Arthritis BPH (benign prostatic hyperplasia) CAD (coronary artery disease) Cellulitis RIGHT LOWER LEG Chronic lower back pain CKD (chronic kidney disease), stage III Diabetes Diabetic polyneuropathy Erectile dysfunction Fatty infiltration of liver Foot drop Hearing loss History of removal of joint prosthesis of right knee due to infection History of seizures as a child Hx of myocardial infarction 10/2011 STRESS TEST COMPLETED 11/29/2019 Hyperlipidemia Microalbuminuria Morbid obesity Myalgia Onychomycosis Osteoarthritis Palliative care patient Paresthesias Perennial allergic rhinitis Sleep apnea Sleep apnea with use of continuous positive airway pressure (CPAP) Unsteady gait Venous insufficiency Vertigo Surgical History Carpal tunnel syndrome of right wrist S/P ECTR: 10/28/2022 colonoscopy (09/02/16) H/O heart artery stent X2 2013 H/O total knee replacement left knee 12/14/2019, right knee 01/16/2021 History of tonsillectomy and adenoidectomy Family History Maternal Aunt Colon cancer Maternal Aunt Colon cancer Father , 70s Heart disease Mother Lung cancer Brother Liver failure Son , tractor accident Accident caused by farm tractor Social History Smoking/Tobacco Use Status: Never Smoking risk assessment performed?: Yes Alcohol Intake: never Drug use: Never Substance use type: does not use Do you feel safe at home: Yes Do you feel safe in your relationship?: Yes Meds Allergies and Home Medications Allergies Allergy/AdvReac Type Severity Reaction Status Date / Time amlodipine besylate AdvReac Mild edema Verified 12/02/22 07:28 [From Norvasc] enalapril maleate AdvReac Mild cough Verified 12/02/22 07:28 [From Vasotec] enalaprilat dihydrate AdvReac Mild cough Verified 12/02/22 07:28 [From Vasotec] pravastatin sodium AdvReac Mild myalgia Verified 12/02/22 07:28 [From Pravachol] from Lipitor rosuvastatin [From Crestor] AdvReac Mild Myalgia Verified 12/02/22 07:28 Home Medications Medication Instructions Recorded Confirmed Type losartan 100 mg tablet (Cozaar) 100 mg PO DAILY 11/01/13 12/05/22 History insulin lispro 100 unit/mL 30 unit SQ .SLIDING SCALE 09/01/16 12/05/22 History subcutaneous pen (Humalog KwikPen (U-100) Insulin) empagliflozin 10 mg tablet 25 mg PO DAILY 05/22/18 12/05/22 History (Jardiance) fluticasone propionate 50 1 spray intranasal DAILY 02/10/20 12/05/22 History mcg/actuation nasal spray,suspension hydrochlorothiazide 50 mg tablet 50 mg PO DAILY #0 tab-caps 02/20/20 12/05/22 Rx carvedilol 25 mg tablet 25 mg PO BID 01/16/21 12/05/22 History lidocaine 5 % topical ointment 1 applic topical QHS 09/20/21 12/05/22 History loperamide 2 mg capsule (Imodium 2 mg PO Q6H PRN 09/20/21 12/05/22 History A-D) aspirin 81 mg capsule 81 mg PO DAILY 02/06/22 12/05/22 History doxazosin 4 mg tablet (Cardura) 4 mg PO DAILY 02/06/22 12/05/22 History gabapentin 300 mg capsule See Rx Instructions PO DAILY 03/12/22 12/05/22 History penicillin V potassium 500 mg See Rx Instructions .Route 05/13/22 12/05/22 Rx tablet .COMPLEX #90 tabs baclofen 5 mg tablet 5 mg PO QHS 07/21/22 12/05/22 History insulin glargine 100 unit/mL 40 unit subcut QHS 07/21/22 12/05/22 History subcutaneous solution (Lantus U-100 Insulin) magnesium oxide 400 mg (241.3 mg 800 mg PO DAILY 07/21/22 12/05/22 History magnesium) tablet ropinirole 1 mg tablet 4 mg PO QHS 07/21/22 12/05/22 History apple cider vinegar 300 mg tablet 300 mg PO BID 07/29/22 12/05/22 History vitamin B complex (B 1 tab PO DAILY 09/25/22 12/04/22 History Complex-Vitamin B12 tablet) acetaminophen 500 mg tablet 1,000 mg PO TID #90 tabs 10/28/22 12/05/22 Rx ibuprofen 600 mg tablet 600 mg PO TID PRN pain #90 tabs 10/28/22 12/05/22 Rx cefpodoxime 200 mg tablet 200 mg PO BID 14 days #28 tabs 12/02/22 12/05/22 Rx guaifenesin 400 mg tablet 400 mg PO BID 10 days #20 tabs 12/02/22 12/05/22 Rx Exam Narrative Exam Narrative: General: Patient appears older than stated age, morbidly obese, lying in bed with his head at a 45 degree angle and appears comfortable. He is in no acute distress. He is alert and oriented at least to person and place. HEENT: Normocephalic, coarsened facial features, eyes with pupils equal and react to light symmetrically, extraocular movement tact and sclera anicteric. Oropharynx with dry mucosa. Neck: Supple without JVD. Back: Stooped posture without CVA tenderness. Lungs: Decreased aeration over the left more than right with inspiratory coarse crackles more on the left and slightly increased expiratory phase especially with cough. No focal rales. Upper airway rhonchi with cough. Heart: Regular rhythm with bradycardic rate, no murmurs or gallops appreciated. Abdomen: Obese contour, soft palpation with no palpable hepatosplenomegaly and no guarding or rebound. Bowel sounds positive in all quadrants. Genitalia/rectal: Exam deferred. Extremities: Both lower extremities show well-healed TKA's scars with erythema skin and hyperpigmentation along with dry ulcerations over both lower extremities with brawny 3+ edema which is nonpitting. Feet have hyperpigmented skin but no ulcerations with nonpitting edema. Fair capillary refill. Upper extremities have normal pulses. No clubbing or cyanosis. Skin: Pale, warm and dry with rough texture. Chronic skin changes lower extremities as described. Neuro: Cranial nerves II to XII gross intact, no focalizing motor deficits. No tremor. Psych: Flattened affect with normal mood. No abnormal thought processes. Remote and recent memory appear to be grossly intact though patient is a vague historian. Results Imaging Imaging Studies: Exam: CT Head Without Contrast Exam date and time: 12/04/2022 11:36 PM Age: 77 years old Clinical indication: Stroke-like symptoms; Altered mental status/memory loss and speech disturbance; Additional info: Unresponsive episode, R/O acute CVA TECHNIQUE: Imaging protocol: Computed tomography of the head without contrast. Radiation optimization: All CT scans at this facility use at least one of these dose optimization techniques: automated exposure control; mA and/or kV adjustment per patient size (includes targeted exams where dose is matched to clinical indication); or iterative reconstruction. Other technique: STROKE PROTOCOL was implemented. COMPARISON: CT HEAD WO 09/27/2021 2:29 PM FINDINGS: Brain:? Mild volume loss No hemorrhage.? Mild white matter disease. No mass effect. Cerebral ventricles: No ventriculomegaly. Paranasal sinuses:? Fluid levels and mucosal thickening in the paranasal sinuses Mastoid air cells: Visualized mastoid air cells are well aerated. Bones/joints: Unremarkable. No acute fracture. Soft tissues: Unremarkable. IMPRESSION: No acute intracranial abnormality. Exam: XR Chest Exam date and time: 12/04/2022 11:44 PM Age: 77 years old Clinical indication: Cough; Additional info: Cough, SOB, has pneumonia, assess for worsening TECHNIQUE: Imaging protocol: Radiologic exam of the chest. Views: 2 views. COMPARISON: CR XR PORTABLE CHEST AP 12/02/2022 7:57 AM FINDINGS: Lungs:? Left greater than right opacities are grossly stable. Pleural spaces: No pleural effusion. No pneumothorax. Heart/Mediastinum:? Grossly stable. Bones/joints:? Grossly stable. IMPRESSION: Grossly stable appearance to left greater than right pneumonia Labs Result diagrams: 12/05/22 05:55 12/05/22 05:55 Labs: Laboratory Results - last 24 hr 12/04/22 12/04/22 12/04/22 23:15 23:15 23:15 WBC 10.77 RBC 4.47 Hgb 11.9 L Hct 38.1 L MCV 85 MCH 26.6 L MCHC 31.2 L RDW 14.6 H Plt Count 268 MPV 9.0 Immature Gran % 0.6 Neutrophils % 87.6 Lymphocytes % 2.9 Monocytes % 6.2 Eosinophils % 2.3 Basophils % 0.4 Nucleated RBC % 0.0 Absolute Neutrophils 9.44 H Absolute Lymphocytes 0.31 L Absolute Monocytes 0.67 Absolute Eosinophils 0.25 Absolute Basophils 0.04 VBG pH VBG pCO2 VBG pO2 VBG HCO3 VBG Total CO2 VBG O2 Saturation VBG Base Excess Sodium 136 Potassium 4.0 Chloride 99 Carbon Dioxide 33.0 H Anion Gap 4.0 BUN 47 H Creatinine 1.6 H Est GFR (CKD-EPI 2020) 43.56 Glucose 75 Calcium 8.8 Magnesium 2.5 H Total Bilirubin 0.4 AST 65 H ALT 71 H Alkaline Phosphatase 212 H Troponin I < 50 Total Protein 7.2 Albumin 2.5 L Urine Color Urine Clarity Urine pH Ur Specific Campbell Urine Protein Urine Ketones Urine Blood Urine Nitrite Urine Bilirubin Urine Urobilinogen Ur Leukocyte Esterase Urine Glucose COVID-19 Source Nasopharynx SARS-CoV-2 (PCR) Negative Influenza Type A (PCR) Negative Influenza Type B (PCR) Negative RSV (PCR) Negative 12/05/22 12/05/22 00:05 00:40 WBC RBC Hgb Hct MCV MCH MCHC RDW Plt Count MPV Immature Gran % Neutrophils % Lymphocytes % Monocytes % Eosinophils % Basophils % Nucleated RBC % Absolute Neutrophils Absolute Lymphocytes Absolute Monocytes Absolute Eosinophils Absolute Basophils VBG pH 7.36 VBG pCO2 56 H VBG pO2 40 VBG HCO3 31 H VBG Total CO2 29 VBG O2 Saturation 68 VBG Base Excess 6 H Sodium Potassium Chloride Carbon Dioxide Anion Gap BUN Creatinine Est GFR (CKD-EPI 2020) Glucose Calcium Magnesium Total Bilirubin AST ALT Alkaline Phosphatase Troponin I Total Protein Albumin Urine Color Yellow Urine Clarity Clear Urine pH 6.0 Ur Specific Campbell 1.015 Urine Protein Negative Urine Ketones Negative Urine Blood Negative Urine Nitrite Negative Urine Bilirubin Negative Urine Urobilinogen 0.2 Ur Leukocyte Esterase Negative Urine Glucose 500 H COVID-19 Source SARS-CoV-2 (PCR) Influenza Type A (PCR) Influenza Type B (PCR) RSV (PCR) Last Vital Signs Temp 36.3 C L 12/04/22 22:58 Pulse 44 L 12/05/22 04:33 Resp 12 12/05/22 04:50 BP 135/60 12/05/22 04:33 Pulse Ox 93 12/05/22 04:50 Time Spent Time spent with Patient: >75 minutes Time was spent: preparing to see the patient(eg.review tests), obtaining and/or reviewing separately otained hiistory, ordering medications,tests, procedures, referring, communicating with other health insurance healthcare representative, indepentently interpreting results and care coordination
[2022-12-05 06:00] LABS: HCT 38.5 % (40.0-50.0); HGB 12.1 g/dL (13.5-17.5); MCH 26.9 pg (27.0-33.0); MCHC 31.4 % (32.0-36.0); MCV 86 fL (80-95); Platelet Count 239 10^3/uL (130-400); RDW 14.6 % (11.8-14.1); RDW-SD 45.3 fL; WBC 9.81 10^3/uL (4.4-10.8)
[2022-12-05 06:18] LABS: ALT 66 U/L (16-63); AST 59 U/L (15-37); Albumin 2.5 g/dL (3.4-5.0); Alkaline Phosphatase 217 U/L (46-116); Anion Gap 3.8 mmol/L (3-11); BUN 43 mg/dL (7-18); Bilirubin, Total 0.3 mg/dL (0.2-1.0); CO2 32.2 mmol/L (21.0-32.0); CREATININE 1.4 mg/dL (0.70-1.30); Calcium 8.4 mg/dL (8.5-10.1); Chloride 102 mmol/L (98-107); Estimated GFR 51.13 (mL/min/1.73m2); Glucose 129 mg/dL (74-106); Magnesium 2.4 mg/dL (1.8-2.4); Potassium 4.6 mmol/L (3.5-5.1); Sodium 138 mmol/L (136-145); Total Protein 6.3 g/dL (6.4-8.2)
[2022-12-05 06:19] LABS: INR 1.1 (0.9-1.1); Prothrombin Time 11.4 sec (9.3-11.0)
[2022-12-05] MEDS: Enoxaparin 60 MG/0.6 ML SYR 40 MG SC (06:40)
[2022-12-05] MEDS: Insulin Aspart 300 UNITS/3 ML PEN SC ×3 (08:31→20:14)
[2022-12-05] MEDS: Gabapentin 300 MG CAP 600 MG PO (08:58)
[2022-12-05] MEDS: guaiFENesin 200 MG/10 ML CUP 400 MG PO ×2 (08:59→20:12)
[2022-12-05] MEDS: Cefpodoxime 200 MG TAB PO ×2 (08:59→20:12)
[2022-12-05] MEDS: Losartan 50 MG TAB 100 MG PO (10:30)
[2022-12-05] MEDS: Aspirin E.C. 81 MG TABEC PO (10:31)
[2022-12-05] MEDS: Vitamins B Comp w/C TAB 1 TAB PO (10:31)
[2022-12-05] MEDS: Fluticasone NASAL SPRAY 16 GM BTL NS (10:32)
[2022-12-05] MEDS: Normal Saline 1,000 ML 125 ML IV (14:19)
[2022-12-05] MEDS: Benzonatate 200 MG CAP PO ×2 (16:48→20:12)
--- NOTE | 2022-12-05 18:00 | RESPIRATORY ---
RT spoke with patient concerning history of QUETA listed in history. Patient does use a device but did not bring it into ER last night when he arrived. Patient does not want to have his own device brought in as he feels he will be fine tonight without it as he's going home tomorrow.
[2022-12-05] MEDS: rOPINIRole 1 MG TAB 4 MG PO (21:26)
[2022-12-05] MEDS: Gabapentin 300 MG CAP 900 MG PO (21:26)
[2022-12-05] MEDS: Baclofen 10 MG TAB 5 MG PO (21:27)
[2022-12-05] MEDS: Doxazosin 2 MG TAB 4 MG PO (21:27)
[2022-12-06 03:15] VITALS: BP 126/63; PULSE 80; RESP 18; TEMP 36.2; O2SAT 91
[2022-12-06] MEDS: Albuterol 2.5 MG/3 ML INH SOLN VIAL UPD (06:32)
[2022-12-06 06:38] VITALS: BP 120/64; PULSE 73; RESP 20; TEMP 36.8; O2SAT 94
[2022-12-06 06:58] LABS: Anion Gap 8.1 mmol/L (3-11); BUN 36 mg/dL (7-18); CO2 27.9 mmol/L (21.0-32.0); CREATININE 1.5 mg/dL (0.70-1.30); Calcium 8.6 mg/dL (8.5-10.1); Chloride 101 mmol/L (98-107); Estimated GFR 47.06 (mL/min/1.73m2); Glucose 125 mg/dL (74-106); Potassium 4.5 mmol/L (3.5-5.1); Sodium 137 mmol/L (136-145)
[2022-12-06 07:43] VITALS: PULSE 73
[2022-12-06] MEDS: Fluticasone NASAL SPRAY 16 GM BTL NS (07:50)
[2022-12-06] MEDS: guaiFENesin 200 MG/10 ML CUP 400 MG PO (07:51)
[2022-12-06] MEDS: Cefpodoxime 200 MG TAB PO (07:52)
[2022-12-06] MEDS: Empaglifozin 25 MG TAB PO (07:52)
[2022-12-06] MEDS: Enoxaparin 40 MG/0.4 ML SYR SC (07:52)
[2022-12-06] MEDS: Vitamins B Comp w/C TAB 1 TAB PO (07:53)
[2022-12-06] MEDS: Losartan 50 MG TAB 100 MG PO (07:53)
[2022-12-06] MEDS: Benzonatate 200 MG CAP PO (07:53)
[2022-12-06] MEDS: Aspirin E.C. 81 MG TABEC PO (07:53)
[2022-12-06] MEDS: Gabapentin 300 MG CAP 600 MG PO (07:53)
--- NOTE | 2022-12-06 08:56 | PDOC.CMIN ---
- If Service Date Differs Date of service: 12/06/22 Time of Service: 08:56 Care Management Initial Assess REASON FOR HOSPITALIZATION:: Pneumonia PAST MEDICAL HISTORY/PAST SURGICAL HISTORY:: All Active Problems . Walking pneumonia (Acute). Hypoglycemia (Acute). Bradycardia (Acute). Pneumonia (Acute). Requires supplemental oxygen (Acute). Nail dystrophy (Acute). Lumbar stenosis (Acute). Carpal tunnel syndrome of left wrist (Acute). Bilateral hand numbness (Acute). Foot drop, bilateral (Acute). Diabetic neuropathy (Acute). Left sided sciatica (Acute). Impairment of speech discrimination (Acute). Asymmetrical sensorineural hearing loss (Acute). DVT prophylaxis (Acute). Sepsis (Acute). Infection of total right knee replacement (Acute). S/p irrigation and debridement; poly exchange; arthrotomy repair. DOS: 10/04/2021. Advance care planning (Acute). Hypertension (Chronic). Bacteremia (Acute). Hypoxemia (Acute). Tubulovillous adenoma polyp of colon (Chronic). Noted by colonoscopy. Asymmetrical sensorineural hearing loss (Acute). History of total right knee replacement (Acute 01/16/21). First degree heart block (Acute). Discharge planning issues (Acute). DVT prophylaxis (Acute). Renal insufficiency (Chronic). Abnormal LFTs (Chronic). Secondary to fartty infiltrate of the liver. Cellulitis (Acute). History of total left knee replacement (TKR) (Acute 12/14/19). Dr. Wilson. s/p debridement and poly exchange 02/10/20. Diabetes mellitus type 2 (Chronic). Since approximately 1997. On insulin thereapy. Last hemoglobin A1c 6.5% March 2013. 11-01-2013: Most recent hemoglobin A1c was 6.6 ? date. Hyperlipidemia (Chronic). Obstructive sleep apnea syndrome (Chronic). Nocturnal CPAP. Benign prostatic hyperplasia (Chronic). Obesity (Chronic). Benign hypertension (Chronic). Diabetic renal disease (Chronic). Chest pain, rule out acute myocardial infarction (Acute 11/01/13). Low blood magnesium (Acute 11/01/13). Tubular adenoma of colon (Acute 09/02/16). Medical History . Arthritis. BPH (benign prostatic hyperplasia). CAD (coronary artery disease). Cellulitis. RIGHT LOWER LEG. Chronic lower back pain. CKD (chronic kidney disease), stage III. Diabetes. Diabetic polyneuropathy. Erectile dysfunction. Fatty infiltration of liver. Foot drop. Hearing loss. History of removal of joint prosthesis of right knee due to infection. History of seizures as a child. Hx of myocardial infarction. 10/2011. STRESS TEST COMPLETED 11/29/2019. Hyperlipidemia. Microalbuminuria. Morbid obesity. Myalgia. Onychomycosis. Osteoarthritis. Palliative care patient. Paresthesias. Perennial allergic rhinitis. Sleep apnea. Sleep apnea with use of continuous positive airway pressure (CPAP). Unsteady gait. Venous insufficiency. Vertigo. Surgical History . Carpal tunnel syndrome of right wrist. S/P ECTR: 10/28/2022. colonoscopy (09/02/16). H/O heart artery stent. X2 2013. H/O total knee replacement. left knee 12/14/2019, right knee 01/16/2021. History of tonsillectomy and adenoidectomy PREVIOUS FUNCTIONAL STATUS/SOCIAL/FAMILY SUPPORTS:: Faustino resides in [place] with his , Jessica. Their daughter, Amrita and grandchildren also reside in [place]. 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 He is independent at baseline with supportive family and friends.faustino uses a walker for ambulatory assistance and receives Meals on Wheels twice a week. CURRENT FUNCTIONAL STATUS:: Faustino was sitting up in a chair when CM met with him. He was pleasant and engaged easily with CM. Faustino shared that he anticipates being discharged today. His or daughter will transport him via private vehicle. Faustino denied the need for any additional services at this time. ADVANCE DIRECTIVES:: On file. Jessica [facility] Has patient been provided with info about the portal/API?: Yes Did the patient sign up for the portal?: Yes (previously) CODE STATUS:: Full Code INSURANCE COVERAGE / FINANCIAL ISSUES:: [employer] medicare Advantage. Financial Assist 100 CURRENT HOME/COMMUNITY SERVICES/EQUIPMENT:: Faustino uses a walker. Meals on Wheels twice a week PRIMARY CARE PHYSICIAN:: Cameron Mcartuhr POTENTIAL DISCHARGE NEEDS:: follow up with PCP and plan of care PATIENT/FAMILY EDUCATION NEEDS:: Review of discharge instructions, activity, limitations, follow up plan, discuss Ask Me Three TRANSPORTATION:: viea private vehicle with family PLAN:: Faustino will be discharged home with no new services. He will follow up with his PCP and plan of care and transport with family.
--- NOTE | 2022-12-06 09:46 | DSE_ITS ---
Date of service: 12/06/22 Time of Service: 09:46 DS: Diagnosis Discharge Diagnosis (1) Pneumonia: Status: Acute (2) Hypoxemia: Status: Acute (3) Hypoglycemia: Status: Acute (4) Diabetes mellitus type 2: Status: Chronic Discharge Plan Disposition Patient Disposition: Home Condition: Improving Discharge Details Reason For Visit: Hypoglycemia,pneumonia,hypoxia,bradycardia Admit Date/Time: 12/05/22 01:10 Admit Provider: Kurtis Burleson Attending Provider: Kurtis Burleson Primary Care Provider: Cameron Mcarthur Hospital Course Hospital Course: This is a 77-year-old male patient with morbid obesity, hypertension, diabetes with history of CAD and hyperlipidemia as well as obstructive sleep apnea and chronic edema with skin changes over the lower extremities.? He also has CKD.? Miguel mann was found unresponsive at home and had taken a larger dose of his long-acting insulin than usual with not eating well and was hypoglycemic.?He had taken a larger dose of insulin than usual even though his overall intake had been poor he felt he needed to cover for a bowl f noodles he ate. He also was found to be hypoxic with a recent diagnosis of pneumonia on cefpodoxime and at home.? He has been to the ED a few days prior to this admission.? He had bradycardia and oxygen needs as well as hypoglycemia prompting transfer to the ED where patient was treated for all of these problems.? His carvedilol was held and he did respond to IV fluid resuscitation with dextrose and holding his usual insulin.? He did sleep some during the night and was feeling slightly better but was not able to go home.? He presented to the ED 2 days prior with 10 days of cough and congestion and continues to have a cough with some production of sputum.? He was bradycardic below 50 with low blood pressure but not requiring resuscitation other than fluids and his glucose was below 50.? He was administered On O2 in the ED he required 2 L nasal cannula to keep his pulse oximeter in the mid 90% otherwise he would drop into the mid 80% range of pulse oximeter.? He is a full code. Upon admission, his oral antibiotic was continued. His lantus and Jardiance were held. An incentive spirometer was utilized. He produced thick, pale yellow sputum. His glucose recovered after initially being given D10 NS. This was stopped and he ate w/o difficulty. He was weaned off supplemental O2. He will finished the course of cefpodoxime. Continue to use his IS. An acapella device was also initiated and he will continue that at home to help clear sputum. Follow up with PCP in 1-2 weeks. Home Meds and New Rx's Prescriptions: Continued loperamide [Imodium A-D] 2 mg capsule 2 mg PO Q6H PRN lidocaine 5 % ointment 1 applic topical QHS insulin glargine [Lantus U-100 Insulin] 100 unit/mL solution 40 unit subcut QHS baclofen 5 mg tablet 5 mg PO QHS ropinirole 1 mg tablet 4 mg PO QHS Rx Instructions: administer 1-3 hours before bedtime magnesium oxide 400 mg (241.3 mg magnesium) tablet 800 mg PO DAILY vitamin B complex [B Complex-Vitamin B12] Tablet 1 tab PO DAILY apple cider vinegar 300 mg tablet 300 mg PO BID doxazosin [Cardura] 4 mg tablet 4 mg PO DAILY aspirin 81 mg capsule 81 mg PO DAILY gabapentin 300 mg capsule See Rx Instructions PO DAILY Rx Instructions: take 2 capsules by mouth every morning and and 3 capsules every evening PO daily; losartan [Cozaar] 100 MG tablet 100 mg PO DAILY insulin lispro [Humalog KwikPen Insulin] 100 UNIT/ML insulin pen 30 unit SQ .SLIDING SCALE Jardiance 10 MG tablet 25 mg PO DAILY fluticasone propionate 50 mcg/actuation [place],Suspension 1 spray INTRANASAL DAILY cefpodoxime 200 mg tablet 200 mg PO BID 14 Days Qty: 28 0RF Rx Instructions: must administer with a meal/food guaifenesin 400 mg tablet 400 mg PO BID 10 Days Qty: 20 0RF hydrochlorothiazide 50 MG tablet 50 mg PO DAILY Qty: 0 0RF carvedilol 25 mg tablet 25 mg PO BID acetaminophen 500 mg tablet 1,000 mg PO TID Qty: 90 0RF ibuprofen 600 mg tablet 600 mg PO TID PRN (Reason: pain) Qty: 90 0RF Discontinued penicillin V potassium 500 mg tablet See Rx Instructions .ROUTE .COMPLEX Qty: 90 6RF Dose Instruction: TAKE 1 TABLET(500 MG) BY MOUTH THREE TIMES DAILY Rx Instructions: TAKE 1 TABLET(500 MG) BY MOUTH THREE TIMES DAILY Discharge Instructions Activity:: Activity as Tolerated Equipment/Supplies:: No Equipment Needed Diet:: Resume usual diabetic diet DS: Summary Time Spent with Patient providing and/or coordinating discharge services: Greater than 30 minutes Status at Discharge Functional status at discharge: independent ambulation Overall status at discharge: patient is progressing back to baseline Mental Status: mental status grossly normal Speech and Movement: speech and movement normal Mood: congruent mood Affect: normal affect Exam Narrative Exam Narrative: General: Sitting in chair. Intermittent cough with sputum production. Feeling better. Not short of air. Lungs: Diminished breath sounds, clear. Normal work of breathing. Heart: RRR, S1, S2. No murmur Abdomen: Obese contour, soft, NT Extremities: Both lower extremities show well-healed TKA's scars with erythema skin and hyperpigmentation along with dry ulcerations over both lower extremities with brawny 3+ edema which is nonpitting. Feet have hyperpigmented skin but no ulcerations with nonpitting edema. No calf tenderness. Skin: Pale, warm and dry with rough texture. Chronic skin changes lower extremities as described. Neuro: No focalizing motor deficits. No tremor. Psych: Flattened affect with normal mood. No abnormal thought processes. . Psych Mental Status: mental status grossly normal Speech and Movement: speech and movement normal Mood: congruent mood Affect: normal affect DS: Data Vitals/I&O Vitals and I&O: Vital Signs Temperature 36.8 C 12/06/22 06:38 Temperature Source Tympanic 12/06/22 06:38 Pulse 73 12/06/22 07:43 Pulse Rhythm Regular 12/06/22 05:43 Pulse 50 L 12/05/22 12:01 Respiratory Rate 20 12/06/22 06:38 Respiratory Effort Non-Labored 12/06/22 05:43 Respiratory Depth Normal 12/06/22 05:43 Respiratory Pattern Normal 12/06/22 05:43 Blood Pressure 120/64 12/06/22 06:38 Blood Pressure Mean 62 12/05/22 12:01 Pulse Oximetry 94 12/06/22 06:38 Respiratory End-tidal CO2 9 12/05/22 01:42 Oxygen Delivery Method Nasal Cannula 12/06/22 06:38 Oxygen Flow Rate 1 12/06/22 06:38 Fraction of Inspired Oxygen (FIO2) 21 12/05/22 03:23 Pain Level 0 12/06/22 03:15 Comment 12/06/22 03:15 Intake & Output 12/05/22 12/05/2212/06/23 11:59 23:59 11:59 Intake Total 1030.0 / 1030.0 180 / 180 Output Total 470 / 1650 1180 / 1650 800 / 800 Balance -470 / -620.0 -150.0 / -620.0 -620 / -620 Weight 116 kg 127.006 kg Intake: IV 1030.0 / 1030.0 Oral 180 / 180 Output: Urine 470 / 1650 1180 / 1650 800 / 800 Other: Urine Color Yellow Yellow Urine Appearance Clear Clear Urine Odor Normal Normal Comment 180 in urine, incontinent x1 (urinal fell) Voiding Methods Urinal Urinal Data Completed and Pending Labs on day of discharge: Labs from last 24 hours 12/06/22 06:12 Sodium 137 Potassium 4.5 Chloride 101 Carbon Dioxide 27.9 Anion Gap 8.1 BUN 36 H Creatinine 1.5 H Est GFR (CKD-EPI 2020) 47.06 Glucose 125 H Calcium 8.6 Preliminary micro results at discharge 12/05/22 00:11 Sputum Culture - Preliminary Sputum Normal Claribel PFSH All Active Problems Walking pneumonia (Acute) Hypoglycemia (Acute) Bradycardia (Acute) Pneumonia (Acute) Requires supplemental oxygen (Acute) Nail dystrophy (Acute) Lumbar stenosis (Acute) Carpal tunnel syndrome of left wrist (Acute) Bilateral hand numbness (Acute) Foot drop, bilateral (Acute) Diabetic neuropathy (Acute) Left sided sciatica (Acute) Impairment of speech discrimination (Acute) Asymmetrical sensorineural hearing loss (Acute) DVT prophylaxis (Acute) Sepsis (Acute) Infection of total right knee replacement (Acute) S/p irrigation and debridement; poly exchange; arthrotomy repair DOS: 10/04/2021 Advance care planning (Acute) Hypertension (Chronic) Bacteremia (Acute) Hypoxemia (Acute) Tubulovillous adenoma polyp of colon (Chronic) Noted by colonoscopy. Asymmetrical sensorineural hearing loss (Acute) History of total right knee replacement (Acute 01/16/21) First degree heart block (Acute) Discharge planning issues (Acute) DVT prophylaxis (Acute) Renal insufficiency (Chronic) Abnormal LFTs (Chronic) Secondary to fartty infiltrate of the liver. Cellulitis (Acute) History of total left knee replacement (TKR) (Acute 12/14/19) Dr. Prohaska s/p debridement and poly exchange 02/10/20 Diabetes mellitus type 2 (Chronic) Since approximately 1997. On insulin thereapy. Last hemoglobin A1c 6.5% March 2013. 11-01-2013: Most recent hemoglobin A1c was 6.6 ? date. Hyperlipidemia (Chronic) Obstructive sleep apnea syndrome (Chronic) Nocturnal CPAP Benign prostatic hyperplasia (Chronic) Obesity (Chronic) Benign hypertension (Chronic) Diabetic renal disease (Chronic) Chest pain, rule out acute myocardial infarction (Acute 11/01/13) Low blood magnesium (Acute 11/01/13) Tubular adenoma of colon (Acute 09/02/16) Medical History Arthritis BPH (benign prostatic hyperplasia) CAD (coronary artery disease) Cellulitis RIGHT LOWER LEG Chronic lower back pain CKD (chronic kidney disease), stage III Diabetes Diabetic polyneuropathy Erectile dysfunction Fatty infiltration of liver Foot drop Hearing loss History of removal of joint prosthesis of right knee due to infection History of seizures as a child Hx of myocardial infarction 10/2011 STRESS TEST COMPLETED 11/29/2019 Hyperlipidemia Microalbuminuria Morbid obesity Myalgia Onychomycosis Osteoarthritis Palliative care patient Paresthesias Perennial allergic rhinitis Sleep apnea Sleep apnea with use of continuous positive airway pressure (CPAP) Unsteady gait Venous insufficiency Vertigo Surgical History Carpal tunnel syndrome of right wrist S/P ECTR: 10/28/2022 colonoscopy (09/02/16) H/O heart artery stent X2 2014 H/O total knee replacement left knee 12/14/2019, right knee 01/16/2021 History of tonsillectomy and adenoidectomy Family History Maternal Aunt Colon cancer Maternal Aunt Colon cancer Father , 70s Heart disease Mother Lung cancer Brother Liver failure Son , tractor accident Accident caused by farm tractor Social History Smoking/Tobacco Use Status: Never Smoking risk assessment performed?: Yes Alcohol Intake: never Drug use: Never Substance use type: does not use Do you feel safe at home: Yes Do you feel safe in your relationship?: Yes Time Spent with Patient Time Spent with Patient: 45-69 minutes Time was spent: preparing to see the patient(eg.review tests), ordering medications,tests, procedures, indepentently interpreting results and counseling the patient
--- NOTE | 2022-12-06 11:14 | PDOC.CMDIS ---
- If Service Date Differs Date of service: 12/06/22 Time of Service: 11:14 LACE Index Scoring Tool - Questions: Length of Stay (in days): 1 Acuity (Admit via E.D.?): Yes Comorbidities: Previous M.I., Diabetes w/o Complication, Chronic Pulmonary Disease, Liver or Renal Disease E.D. Visits: 3 - Answers: Total Score: 12 Risk of Readmission: High Risk Care Management Discharge Reason for Hospitalization: Pneumonia Discharge Plan: Kurtis will be discharged home with no new services. He will follow up with his PCP and plan of care and transport with family. Patient/Family Education Needs: Review of discharge instructions, activity, limitations, follow up plan, discuss Ask Me Three Services Needed at Discharge: Home Delivered Meals
[2022-12-06 11:41] VITALS: BP 153/76; PULSE 68; RESP 20; TEMP 36.4; O2SAT 92
[2022-12-06 12:55] VITALS: PULSE 82
== END 2022-12-06 13:31 | disposition home or self-care (01) ==
LOC: ER 12-05 01:29 → MS 12-06 09:47
PROVIDERS: Family Medicine; Admitting Provider Family Medicine; Emergency Provider Physician Assistant; PCP Family Medicine; Visit Provider Family Medicine
DX: E11.649 Type 2 diabetes mellitus with hypoglycemia without coma (principal); J18.9 Pneumonia, unspecified organism; E66.01 Morbid (severe) obesity due to excess calories; Z68.41 Body mass index [BMI] 40.0-44.9, adult; Z20.822 Contact with and (suspected) exposure to COVID-19; E78.5 Hyperlipidemia, unspecified; I25.10 Atherosclerotic heart disease of native coronary artery without angina pectoris; G47.33 Obstructive sleep apnea (adult) (pediatric); N18.30 Chronic kidney disease, stage 3 unspecified; E11.22 Type 2 diabetes mellitus with diabetic chronic kidney disease; I12.9 Hypertensive chronic kidney disease with stage 1 through stage 4 chronic kidney disease, or unspecified chronic kidney disease; Z79.4 Long term (current) use of insulin; R09.02 Hypoxemia; R00.1 Bradycardia, unspecified; E11.40 Type 2 diabetes mellitus with diabetic neuropathy, unspecified; K76.0 Fatty (change of) liver, not elsewhere classified; Z96.651 Presence of right artificial knee joint; Z95.5 Presence of coronary angioplasty implant and graft
CPT/HCPCS: 36415; 36416; 80048; 80053; 82805; 82962; 85027; 87637; 93005; 96360; 96372; 99285; J1650; 70450; 71046; 81003; 83735; 84484; 85025; 85610; 87070; 87205; 93010; 99223; 99239; G0378; J3490; J7613

== ENCOUNTER 2022-12-24 01:19 | Outpatient (CLI) | payer MEDICARE, SELFPAY ==
--- NOTE | 2022-12-24 14:25 | DI.MRI_ITS ---
Exam(s) MR CERVICAL SPINE WO EXAM: MR CERVICAL SPINE WO CLINICAL HISTORY: GAIT INSTABILITY, R26.81, SPINAL STENOSIS, M48.061, TECHNIQUE: Multiplanar multisequence MRI of the cervical spine was performed without intravenous con trast. COMPARISON: No exams were available for comparison FINDINGS: Exam is limited by patient motion and patient body habitus.. Patient was unable to lie flat BONES: Vertebral body heights are maintained. Alignment is normal. Bone marrow signal intensity is wi thin normal limits. CERVICAL CORD: Craniovertebral junction is unremarkable. The cervical cord is normal size and signal intensity. SOFT TISSUES: Unremarkable. C2-3: Prominent facet degenerative changes as well as posteriorly projecting osteophytes causing narr owing of the AP dimension of the central canal as well as bilateral neural foraminal narrowing. C3-4: Posterior disc bulging as well as prominent facet degenerative changes, causing severe narrowin g of the AP dimension of the canal. Bilateral neural foraminal narrowing also present. C4-5: Endplate osteophytes and posterior disc bulging. Facet degenerative changes. Significant narr owing of this AP dimension of the central canal. C5-6: Loss of disc height, broad-based disc bulging. Mild narrowing of the AP dimension of the centr al canal. No significant neural foraminal narrowing. C6-7: Severe loss of disc height. Circumferentially projecting osteophytes. Mild narrowing of the A P dimension of the central canal. Bilateral neural foraminal narrowing. C7-T1: Severe loss of disc height. Mild endplate osteophytes. No significant narrowing of the centr al canal. Bilateral neural foraminal narrowing, left greater than right. T1 through T3 disc levels show mild disc bulging. No significant central canal narrowing. Bilatera l neural foraminal narrowing, greater on the left. IMPRESSION: Limited exam. Multilevel degenerative disc changes and facet degenerative changes cause significant central canal stenosis from C2-3 through C4-5. Severe bilateral neural foraminal narrowing at multip le levels. DATA REPOSITORY:
--- NOTE | 2022-12-24 15:00 | DI.MRI_ITS ---
Exam(s) MR THORACIC SPINE WO EXAM: MR THORACIC SPINE WO CLINICAL HISTORY: GAIT INSTABILITY, R26.81, SPINAL STENOSIS, M48.061, EVAL THORACIC CORD. TECHNIQUE: Multiplanar multisequence MRI of the Thoracic spine was performed. COMPARISON: CT CT CHEST PE CTA from 09/27/2021 CR XR PORTABLE CHEST AP from 10/08/2021 MR MR LUMBAR SPINE WO from 08/13/2022 CR XR PORTABLE CHEST AP from 12/02/2022 CR,XR XR CHEST 2V PA LATERAL from 12/04/2022 MR MR CERVICAL SPINE WO from 12/24/2022 FINDINGS: Bones: The vertebral body heights are well maintained. Alignment is satisfactory. Degenerative jiménez es are seen in the endplates, particularly at T8-9. Cord: There is edema within the cord extending from the T8-9 level through the T10-11 level. The cor d also appears thinned at these levels.. Soft tissues: Normal. Endplate osteophytes are noted throughout which are small at T 1 to through T8-9 and do not cause sig nificant encroachment into the central canal. Neural foraminal narrowing is noted at the upper thora cic levels on the left. At T9-10, there are prominent endplate osteophytes as well as facet degenerative changes, causing mil d central canal stenosis and severe bilateral neural foraminal narrowing. At T 10 11, there are prom inent endplate osteophytes and prominent facet degenerative changes causing significant encroachment into the central canal and impingement on the cord. There is significant motion on the axial sequenc es at this level limiting the evaluation. There is severe neural foraminal narrowing bilaterally. Smaller osteophytes are seen at T11-12 and T12-L1. IMPRESSION: Prominent facet joint degenerative changes and disc osteophytes projecting into the central canal at T10-11, causing severe central canal stenosis as well as cord impingement. There is edema within the lower cervical cord as well as cord thinning. DATA REPOSITORY:
== END 2022-12-24 01:39 ==
LOC: DI 01:19
PROVIDERS: PCP Family Medicine; Visit Provider Physician Assistant Surgical
DX: R26.81 Unsteadiness on feet; M47.814 Spondylosis without myelopathy or radiculopathy, thoracic region; M48.04 Spinal stenosis, thoracic region; M48.02 Spinal stenosis, cervical region; M50.31 Other cervical disc degeneration, high cervical region; M50.321 Other cervical disc degeneration at C4-C5 level; M47.812 Spondylosis without myelopathy or radiculopathy, cervical region; M48.061 Spinal stenosis, lumbar region without neurogenic claudication
CPT/HCPCS: 72141; 72146

== ENCOUNTER 2023-01-12 11:37 | Outpatient (CLI) | payer MEDICARE, SELFPAY ==
--- NOTE | 2023-01-12 10:15 | DI.RAD_ITS ---
Exam(s) XR KNEE RT 2V AP,LAT EXAM: XR KNEE RT 2V AP,LAT INDICATION: ANNUAL F/U R TKA. COMPARISON: CR XR KNEE RT 2V AP,LAT from 01/20/2022 TECHNIQUE: 2D digital imaging was performed. Two views. FINDINGS: There has been no change in the total knee prosthesis or appearance of the surrounding bone. Old pro ximal fibular fracture noted. Vascular calcifications present. No visible joint effusion. Impression: Stable appearance of knee prosthesis. DATA REPOSITORY: RADIATION DOSE DELIVERED:
== END 2023-01-12 11:38 | disposition home or self-care (01) ==
LOC: DIORS 11:37
PROVIDERS: PCP Family Medicine; Referring Provider Family Medicine; Visit Provider Student in an Organized Health Care Education/Training Program
DX: Z96.651 Presence of right artificial knee joint (principal); T84.53XD Infection and inflammatory reaction due to internal right knee prosthesis, subsequent encounter
CPT/HCPCS: 99213; 73560

== ENCOUNTER → 2023-03-03 14:58 | Outpatient (BNVA) | payer MEDICARE, SELFPAY | PROVIDERS: PCP Family Medicine; Visit Provider Psychiatry & Neurology Neurology | DX: E11.40 Type 2 diabetes mellitus with diabetic neuropathy, unspecified; L03.115 Cellulitis of right lower limb; M21.371 Foot drop, right foot; M21.372 Foot drop, left foot; E53.8 Deficiency of other specified B group vitamins; M48.061 Spinal stenosis, lumbar region without neurogenic claudication | CPT/HCPCS: 99214 ==

== ENCOUNTER 2023-03-25 13:21 | Outpatient (CLI) | payer MEDICARE, SELFPAY ==
--- NOTE | 2023-03-25 | DI.RAD_ITS ---
Exam(s) XR HIP LT COMPLETE AP PELVIS EXAM: XR HIP LT COMPLETE AP PELVIS INDICATION: LEFT HIP JOINT PAIN M25.552. COMPARISON: No exams were available for comparison TECHNIQUE: 2D digital imaging was performed. Three views. FINDINGS: Severe narrowing of the left hip joint space. Large subchondral cysts on both sides of the joint. T here is mild flattening of the femoral head. The right hip joint space is maintained. Severe degene rative changes of the lower lumbar spine. IMPRESSION: Severe degenerative changes of the left hip. DATA REPOSITORY: RADIATION DOSE DELIVERED:
== END 2023-03-25 13:41 ==
LOC: DI 13:23
PROVIDERS: PCP Family Medicine; Visit Provider Family Medicine
DX: M25.552 Pain in left hip (principal)
CPT/HCPCS: 73502

== ENCOUNTER → 2023-04-08 13:23 | Outpatient (BNVA) | payer MEDICARE, SELFPAY | PROVIDERS: PCP Family Medicine; Referring Provider Podiatrist Foot & Ankle Surgery; Visit Provider Surgery | DX: Z51.89 Encounter for other specified aftercare (principal); I87.2 Venous insufficiency (chronic) (peripheral); E11.9 Type 2 diabetes mellitus without complications | CPT/HCPCS: 29580; 99203; 99213 ==

== ENCOUNTER → 2023-04-14 08:51 | Outpatient (BNVA) | payer MEDICARE, SELFPAY | PROVIDERS: PCP Family Medicine; Referring Provider Family Medicine; Visit Provider Surgery | DX: Z51.89 Encounter for other specified aftercare (principal); I87.2 Venous insufficiency (chronic) (peripheral); E11.9 Type 2 diabetes mellitus without complications | CPT/HCPCS: 29580; 99212; 99213 ==

== ENCOUNTER 2023-06-08 15:50 | Outpatient (CLI) | payer MEDICARE, SELFPAY ==
--- NOTE | 2023-06-08 15:45 | DI.RAD_ITS ---
Exam(s) XR PELVIS AP EXAM: XR PELVIS AP CLINICAL HISTORY: left hip pain. TECHNIQUE: 2D digital imaging was performed. COMPARISON: CR XR HIP LT COMPLETE AP PELVIS from 03/25/2023 FINDINGS: AP view pelvis Advanced degenerative changes in the left hip joint again noted with elimination of the joint space a nd degenerative subarticular cysts on both sides of the joint again noted. There is now some flatten ing of the femoral head evident. Opposite-right hip remains unremarkable. IMPRESSION: Further progression of advanced degenerative changes in the left hip. DATA REPOSITORY: RADIATION DOSE DELIVERED:
== END 2023-06-08 15:51 | disposition home or self-care (01) ==
LOC: DIORS 15:50
PROVIDERS: PCP Family Medicine; Referring Provider Family Medicine; Visit Provider Student in an Organized Health Care Education/Training Program
DX: M16.12 Unilateral primary osteoarthritis, left hip
CPT/HCPCS: 99213; 72170

== ENCOUNTER 2023-07-15 02:45 | Outpatient (CLI) | payer MEDICARE, SELFPAY ==
[2023-07-15 12:38] LABS: HCT 42.4 % (40.0-50.0); HGB 13.8 g/dL (13.5-17.5); MCHC 32.5 % (32.0-36.0); MCV 83 fL (80-95); MPV 9.2 fL (8.0-11.0); Platelet Count 138 10^3/uL (130-400); RBC 5.11 10^6/uL (4.36-5.78); RDW-SD 48.4 fL
[2023-07-15 12:52] LABS: Anion Gap 11.6 mmol/L (3-11); BUN 52 mg/dL (7-18); CO2 25.4 mmol/L (21.0-32.0); CREATININE 1.6 mg/dL (0.70-1.30); Calcium 9.5 mg/dL (8.5-10.1); Chloride 108 mmol/L (98-107); Estimated GFR 43.29 (mL/min/1.73m2); Glucose 102 mg/dL (74-106); Sodium 145 mmol/L (136-145)
== END 2023-07-15 02:46 | disposition home or self-care (01) ==
LOC: LBO 02:46
PROVIDERS: PCP Family Medicine; Visit Provider Student in an Organized Health Care Education/Training Program
DX: Z01.818 Encounter for other preprocedural examination
CPT/HCPCS: 36415; 80048; 85027

== ENCOUNTER 2023-07-15 14:19 | Outpatient (REF) | payer MEDICARE, SELFPAY ==
[2023-07-15 15:12] LABS: Abs Immature Grans 0.01 10^3/uL (0.0-0.06); Absolute Basophil Count 0.04 10^3/uL (0.0-0.2); Absolute Eosinophil Count 0.23 10^3/uL (0.0-0.7); Absolute Lymphocyte Count 0.76 10^3/uL (1.2-3.4); Absolute Monocyte Count 0.48 10^3/uL (0.1-0.8); Absolute Neutrophil Count 4.22 10^3/uL (1.2-6.7); Basophils % 0.7; HCT 42.9 % (40.0-50.0); Immature Grans % 0.2; Lymphocytes % 13.2; MCH 27.5 pg (27.0-33.0); MCHC 32.6 % (32.0-36.0); MCV 84 fL (80-95); Monocytes % 8.4; Neutrophils % 73.5; Platelet Count 152 10^3/uL (130-400); RDW 15.9 % (11.8-14.1); RDW-SD 49.3 fL; WBC 5.74 10^3/uL (4.4-10.8)
[2023-07-15 15:32] LABS: ALT 27 U/L (16-63); AST 35 U/L (15-37); Alkaline Phosphatase 130 U/L (46-116); Anion Gap 12.2 mmol/L (3-11); BUN 49 mg/dL (7-18); Bilirubin, Total 0.4 mg/dL (0.2-1.0); CO2 24.8 mmol/L (21.0-32.0); CREATININE 1.5 mg/dL (0.70-1.30); Calcium 9.4 mg/dL (8.5-10.1); Chloride 107 mmol/L (98-107); Estimated GFR 46.77 (mL/min/1.73m2); Glucose 105 mg/dL (74-106); Potassium 5.1 mmol/L (3.5-5.1); Sodium 144 mmol/L (136-145); Total Protein 7.7 g/dL (6.4-8.2)
== END 2023-07-15 14:20 | disposition home or self-care (01) ==
LOC: NCHCN 14:19
PROVIDERS: PCP Family Medicine; Visit Provider Family Medicine
DX: I10 Essential (primary) hypertension (principal); E11.9 Type 2 diabetes mellitus without complications
CPT/HCPCS: 80053; 85025

== ENCOUNTER 2023-07-29 07:21 | Observation (INO) | payer MEDICARE, SELFPAY ==
[2023-07-29] VITALS (57 sets, daily range): BP systolic 93–157; BP diastolic 51–87; PULSE 56–77; RESP 10–20; TEMP 36.1–36.4; O2SAT 88–100; BMI 40.6
--- NOTE | 2023-07-29 06:08 | W.ANESPRE ---
General Info Date of Service Date Performed: 07/29/23 Height: 5 ft 8 in Weight: 121.109 kg Body Mass Index (BMI): 40.6 Surgical Procedure: Operation Date: 07/29/23 07:50 Proposed Procedure Side Surgeon p Hip Total Hip Anterior, ACTIS (std8/) Left Yrn Wilson MD Meds Allergies and Home Medications Allergies Allergy/AdvReac Type Severity Reaction Status Date / Time amlodipine besylate AdvReac Mild edema Verified 07/29/23 06:12 [From Norvasc] enalapril maleate AdvReac Mild cough Verified 07/29/23 06:12 [From Vasotec] enalaprilat dihydrate AdvReac Mild cough Verified 07/29/23 06:12 [From Vasotec] pravastatin sodium AdvReac Mild myalgia Verified 07/29/23 06:12 [From Pravachol] from Lipitor rosuvastatin [From Crestor] AdvReac Mild Myalgia Verified 07/29/23 06:12 Home Medication Medication Instructions Recorded losartan 100 mg tablet (Cozaar) 100 mg PO DAILY 11/01/13 empagliflozin 10 mg tablet 25 mg PO DAILY 05/22/18 (Jardiance) hydrochlorothiazide 50 mg tablet 50 mg PO DAILY #0 tab-caps 02/20/20 carvedilol 25 mg tablet 25 mg PO BID 01/16/21 lidocaine 5 % topical ointment 1 applic topical QHS 09/20/21 loperamide 2 mg capsule (Imodium 2 mg PO Q6H PRN 09/20/21 A-D) aspirin 81 mg capsule 81 mg PO DAILY 02/06/22 doxazosin 4 mg tablet (Cardura) 4 mg PO DAILY 02/06/22 magnesium oxide 400 mg (241.3 mg 800 mg PO DAILY 07/21/22 magnesium) tablet ropinirole 1 mg tablet 4 mg PO QHS 07/21/22 apple cider vinegar 300 mg tablet 300 mg PO BID 07/29/22 vitamin B complex (B 1 tab PO DAILY 09/25/22 Complex-Vitamin B12 tablet) acetaminophen 500 mg tablet 1,000 mg PO TID #90 tabs 10/28/22 ibuprofen 600 mg tablet 600 mg PO TID PRN pain #90 tabs 10/28/22 penicillin V potassium 500 mg 500 mg PO TID #273 tabs 12/25/22 tablet insulin glargine 100 unit/mL 25 unit subcut QHS 04/01/23 subcutaneous solution (Lantus U-100 Insulin) insulin lispro 100 unit/mL See Rx Instructions subcut 04/01/23 subcutaneous pen (Humalog KwikPen .SLIDING SCALE (U-100) Insulin) fluticasone propionate 50 1 spray intranasal DAILY 05/28/23 mcg/actuation nasal spray,suspension gabapentin 300 mg capsule See Rx Instructions PO DAILY 05/28/23 povidone-iodine 10 % topical 1 applic topical DAILY 07/02/23 solution (Betadine) disinfection of wound #118 mL ketoconazole 2 % topical cream 1 applic topical DAILY 3 months 07/16/23 #60 grams urea 45 % topical gel (KEENAN-Urea) 1 applic topical BID #28 mL 07/16/23 Current Visit Medications: Current Medications Generic Name Dose Route Start Last Admin Trade Name Freq PRN Reason Stop Dose Admin Acetaminophen 1,000 mg 07/29/23 06:00 Acetaminophen 500 Mg Tab PO 07/29/23 16:00 PREOP HELEN Celecoxib 400 mg 07/29/23 06:00 Celecoxib 200 Mg Cap PO 07/29/23 16:00 PREOP HELEN Tranexamic Acid 1,000 mg/ 60 mls @ 360 mls/hr 07/29/23 06:00 Sodium Chloride IV 07/29/23 16:00 PREOP HELEN Cefazolin Sodium 3,000 mg/ 100 mls @ 200 mls/hr 07/29/23 06:00 Sodium Chloride IVPB 07/29/23 16:00 PREOP HELEN Ringer's Solution 1,000 mls @ 80 mls/hr 07/29/23 06:00 IV 08/27/23 23:59 IN[facility]ION [facility] IV Miscellaneous Supplies 1 each 07/29/23 06:00 Iv Access IV 08/27/23 23:59 DIRECTED HELEN Sodium Chloride 0 ml 07/29/23 06:00 Normal Saline Flush 10 Ml Syr IV 08/27/23 23:59 PRN PRN Sodium Chloride 0 ml 07/29/23 06:00 Normal Saline 10 Ml Vial IJ 08/27/23 23:59 DIRECTED PRN Sterile Water 0 ml 07/29/23 06:00 Water,Injection,Sterile 10 Ml Vial IJ 09/28/23 23:59 DIRECTED PRN PFSH Active Problems Active Problems: Problem Status Onset Code Onychogryphosis L60.2 Onychomycosis B35.1 Venous insufficiency of both lower extremities I87.2 Ulcer of right foot with fat layer exposed L97.512 Controlled type 2 diabetes mellitus with ulcer of toe E11.621, L97.509 Atherosclerosis of [place] arteries of right leg with ulceration of ankle I70.233 Degenerative joint disease of left hip M16.12 Impacted cerumen, bilateral H61.23 Ulcer of extremity due to chronic venous insufficiency L98.499, I87.2 Pneumonia J18.9 Nail dystrophy L60.3 Lumbar stenosis M48.061 Carpal tunnel syndrome of left wrist G56.02 Bilateral hand numbness R20.0 Foot drop, bilateral M21.371, M21.372 Diabetic neuropathy E11.40 Left sided sciatica M54.32 Impairment of speech discrimination H93.299 Asymmetrical sensorineural hearing loss H90.3 DVT prophylaxis Z29.9 Sepsis A41.9 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.53XA Advance care planning Z71.89 Hypertension I10 Acute on chronic renal failure N17.9, N18.9 Bacteremia R78.81 Community acquired pneumonia J18.9 Cellulitis of leg, right L03.115 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 Asymmetrical sensorineural hearing loss H90.5 History of total right knee replacement 01/16/21 Z96.651 First degree heart block I44.0 Septic arthritis of knee, left 02/09/20 M00.9 Acute kidney injury (nontraumatic) N17.9 Discharge planning issues Z02.9 DVT prophylaxis Z29.9 Renal insufficiency N28.9 Abnormal LFTs Sepsis A41.9 Cellulitis L03.90 History of total left knee replacement (TKR) 12/14/19 Z96.652 Diabetes mellitus type 2 E11.9 Hyperlipidemia E78.5 Obstructive sleep apnea syndrome G47.33 Benign prostatic hyperplasia N40.0 Obesity E66.9 Benign hypertension I10 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 Chest pain, rule out acute myocardial infarction 11/01/13 R07.9 Low blood magnesium 11/01/13 E83.42 Tubular adenoma of colon 09/02/16 D12.6 Medical History Medical History Arthritis BPH (benign prostatic hyperplasia) CAD (coronary artery disease) Cellulitis RIGHT LOWER LEG Chronic lower back pain CKD (chronic kidney disease), stage III Diabetes Diabetic polyneuropathy Erectile dysfunction Fatty infiltration of liver Foot drop Hearing loss History of removal of joint prosthesis of right knee due to infection History of seizures as a child Hx of myocardial infarction 10/2011 STRESS TEST COMPLETED 11/29/2019 Hyperlipidemia Microalbuminuria Morbid obesity Myalgia Onychomycosis Osteoarthritis Palliative care patient Paresthesias Perennial allergic rhinitis Sleep apnea Sleep apnea with use of continuous positive airway pressure (CPAP) Unsteady gait Venous insufficiency Vertigo Surgical History Surgical History Carpal tunnel syndrome of right wrist S/P ECTR: 10/28/2022 colonoscopy (09/02/16) H/O heart artery stent X2 2013 H/O total knee replacement left knee 12/14/2019, right knee 01/16/2021 History of tonsillectomy and adenoidectomy Tobacco Smoking/Tobacco Use Status: Never Alcohol Alcohol Intake: never Substance Use Substance use: Never Substance use type: does not use Vital Signs and Lab Results Vital Signs Most Recent Vital Signs in EMR: Temp Pulse Resp BP Pulse Ox 36.4 C L 77 15 124/74 95 07/29/23 06:44 07/29/23 06:44 07/29/23 06:44 07/29/23 06:44 07/29/23 06:44 Lab Results Blood Type / Crossmatch: No Data to Display Complete Blood Count: White Blood Count 5.80 10^3/uL (4.4-10.8) 07/15/23 12:25 Red Blood Count 5.11 10^6/uL (4.36-5.78) 07/15/23 12:25 Hemoglobin 13.8 g/dL (13.5-17.5) 07/15/23 12:25 Hematocrit 42.4 % (40.0-50.0) 07/15/23 12:25 Platelet Count 138 10^3/uL (130-400) 07/15/23 12:25 Complete Metabolic Panel: Sodium 145 mmol/L (136-145) 07/15/23 12:25 Potassium 5.0 mmol/L (3.5-5.1) 07/15/23 12:25 Chloride 108 mmol/L (98-107) H 07/15/23 12:25 Carbon Dioxide 25.4 mmol/L (21.0-32.0) 07/15/23 12:25 BUN 52 mg/dL (7-18) H 07/15/23 12:25 Creatinine 1.6 mg/dL (0.70-1.30) H 07/15/23 12:25 Est GFR (CKD-EPI 2020) 43.29 (mL/min/1.73m2) 07/15/23 12:25 Calcium 9.5 mg/dL (8.5-10.1) 07/15/23 12:25 Albumin 4.0 g/dL (3.4-5.0) 07/15/23 11:40 Glucose 102 mg/dL (74-106) 07/15/23 12:25 Liver Function Panel: Alanine Aminotransferase (ALT/SGPT) 27 U/L (16-63) 07/15/23 11:40 Aspartate Amino Transf (AST/SGOT) 35 U/L (15-37) 07/15/23 11:40 Coagulation Panel: No Data to Display Cardiac Panel: No Data to Display Arterial Blood Gas: No Data to Display Venous Blood Gas: No Data to Display Pancreas Panel: No Data to Display Thyroid Panel: No Data to Display Infectious Disease: No Data to Display Blood Cultures: No Data to Display Toxicology Panel: No Data to Display Imaging and Studies Imaging and Studies Study information below may be from another EMR and interpreted by another provider. Please see original notes in EMR for more complete details. EKG Summary: 12/22: sindhu, SD 230. Conclusion Sinus rhythm...normal P axis, V-rate 60- 99 Prolonged SD interval...SD >220, V-rate 50- 90 09/27/21 First degree AV block Stress Test Summary: Stress ECG Conclusion 1. There was no evidence of ischemia on this ECG portion of this exam. 11/29/19 Echocardiogram Summary: Conclusion Normal left ventricular wall thickness and chamber size. Estimated ejection fraction is 55 to 60%. There are no segmental wall motion abnormalities Normal right ventricular size and systolic function Both atria are normal in size Aortic valve is trileaflet and sclerotic without stenosis or regurgitation Mild mitral annular calcification with trace regurgitation Normal tricuspid valve with trace regurgitation. Unable to estimate right ventricular systolic pressure Mildly to moderately dilated aortic root and ascending aorta 09/30/21 Cardiac Catheterization Summary: 2014: 2 stents placed post [place], no issues since MRI Summary: 08/21 lumbar spine: multi level DDD, central spinal canal stenosis at each level in the lumbar spine with relative sparing of L5-S1 Anesthesia Assessment and Plan Anesthesia History Personal History: No History of Anesthesia Complications Family History: No Family History of Anesthesia Complications Exercise Tolerance Exercise Tolerance: Metabolic Equivalents<4 Cardiac & Pulmonary Exam Cardiac Exam: Normal S1/S2 Heart Sounds Pulmonary Exam: Clear Bilateral Breath Sounds Implantable Cardiac Device Does patient have a Pacemaker or an ICD?: No Airway Exam Known Difficult Airway: No Mallampati Class: 3 Mouth Opening: Narrow (< 3cm) Thyromental Distance: Greater than 3 cm Neck Range of Motion: Full ROM Neck Circumference: Normal Teeth Condition: Generalized Poor Dentition (Many missing and broken) ASA Classification ASA Score: ASA 3 Emergency Case?: No NPO Status NPO Status: NPO Clears >2 hours, Solids >8 hours Anesthesia Plan Resuscitation Status: Full Code Anesthesia Technique: General Anesthesia Airway Planned: Endotracheal Tube Monitors Used: Standard Monitors and Arterial Line (+/-) Preoperative Comments:: 78 yo male for DWAYNE. Sig PMHx: HTN (carvedilol, HCTZ, losartan), CAD (stents x 2 ~2013), 1st d AVB, QUETA, BMI 40, BPH (doxazosin), CKDIII, cervical/thoracic/lumbar stenosis, DVT, DM2 (lantus, lispro, jardance), foot drop bilat, never smoker, Previous Anes: - ECTR, prop, natural airway, no issues. - poly swap/knee infection, LMA 5, sevo/prop, ephedrine. - TKA, multiple attempt spinal without success, LMA 4 igel, dexmed/prop, phenyl near the end. - poly swap/infection, LMA 5, etomidate, prop/sevo, norepi. - TKA, spinal, 1.6 heavy - no set up, LMA 4 or 5. Plan: Discussed risks and benefits of spinal vs GA, given the previous failed spinals GA is the likely option - he agrees. Discussed likely arterial line as well along with increased risk for (but not limited to) [place], kidney injury, etc.
[2023-07-29] MEDS: Acetaminophen 500 MG TAB 1000 MG PO ×3 (06:43→20:18)
[2023-07-29] MEDS: Celecoxib 200 MG CAP 400 MG PO (06:43)
[2023-07-29] MEDS: Lactated Ringers 1,000 ML 80 ML IV (06:45)
--- NOTE | 2023-07-29 07:29 | HPE_ITS ---
Assessment and Plan Assessment and plan (1) Degenerative joint disease of left hip: Status: Acute Assessment and plan: Kurtis is an 78-year-old who has known arthritis of the left hip. He has a complicated medical history but overall is doing well. His weight has been stable. His diabetes been controlled. He had pneumonia earlier in the winter but has had no recurrent issues from this. Given the deformity of the femoral head and the arthritis I do think it is responsible for bulk of his symptoms and his ambulatory decline. Therefore, have offered hip replacement. Please see the previous office note for complete detailed history I went over in detail the possible complications of hip replacement. These include but are not limited to bleeding, infection, pain, stiffness, weakness, damage to nerves (especially the lateral femoral cutaneous nerve), damage to vessels, damage to muscle and tendon, fracture, leg length inequality, wound healing complications, instability, dislocation, and blood clot. Questions were answered. I again e xpressed that this is a surgery to improve functional quality of life. After a review of the presented information and risks, Kurtis desired to proceed. Given his notable limitations in his complex history, I will plan for admission in the hospital with physical therapy consultation. He wants to go home and discharge which we will work on making that happen. History of Present Illness History of Present Illness Chief Complaint: Severe left hip arthritis Narrative: Kurtis is an 78-year-old who I know well from multiple other orthopedic issues. Unfortunately, he is having a harder time ambulating due to left hip pain. He has been diagnosed with severe left hip arthritis, grade 4, with deformity. He was hospitalized for pneumonia in the winter. This is cleared without a problem. He continues to control his diabetes well with a last A1c of 6.4. He has had some skin ulcerations of bilateral lower extremity but these are also doing better as he is taking better care of them. He reports primary pain about the left hip, low back and medial thigh and medial left knee. He has difficulty ambulation due to weakness which is partly stemming from pain. No acute chest pain or shortness of breath. No acute medical changes. Review of Systems All systems reviewed & are unremarkable except as noted in HPI and below PFSH All Active Problems Onychogryphosis (Acute) Onychomycosis (Acute) Venous insufficiency of both lower extremities (Acute) Ulcer of right foot with fat layer exposed (Acute) Controlled type 2 diabetes mellitus with ulcer of toe (Acute) Atherosclerosis of [place] arteries of right leg with ulceration of ankle (Acute) Degenerative joint disease of left hip (Acute) Impacted cerumen, bilateral (Acute) Ulcer of extremity due to chronic venous insufficiency (Acute) Pneumonia (Acute) Nail dystrophy (Acute) Lumbar stenosis (Acute) Carpal tunnel syndrome of left wrist (Acute) Bilateral hand numbness (Acute) Foot drop, bilateral (Acute) Diabetic neuropathy (Acute) Left sided sciatica (Acute) Impairment of speech discrimination (Acute) Asymmetrical sensorineural hearing loss (Acute) DVT prophylaxis (Acute) Sepsis (Acute) Infection of total right knee replacement (Acute) S/p irrigation and debridement; poly exchange; arthrotomy repair DOS: 10/04/2021 Advance care planning (Acute) Hypertension (Chronic) Bacteremia (Acute) Tubulovillous adenoma polyp of colon (Chronic) Noted by colonoscopy. Asymmetrical sensorineural hearing loss (Acute) History of total right knee replacement (Acute 01/16/21) First degree heart block (Acute) Discharge planning issues (Acute) DVT prophylaxis (Acute) Renal insufficiency (Chronic) Abnormal LFTs (Chronic) Secondary to fartty infiltrate of the liver. Cellulitis (Acute) History of total left knee replacement (TKR) (Acute 12/14/19) Dr. Wilson s/p debridement and poly exchange 02/10/20 Diabetes mellitus type 2 (Chronic) Since approximately 1997. On insulin thereapy. Last hemoglobin A1c 6.5% March 2013. 11-01-2013: Most recent hemoglobin A1c was 6.6 ? date. Hyperlipidemia (Chronic) Obstructive sleep apnea syndrome (Chronic) Nocturnal CPAP Benign prostatic hyperplasia (Chronic) Obesity (Chronic) Benign hypertension (Chronic) Diabetic renal disease (Chronic) Chest pain, rule out acute myocardial infarction (Acute 11/01/13) Low blood magnesium (Acute 11/01/13) Tubular adenoma of colon (Acute 09/02/16) Medical History Arthritis BPH (benign prostatic hyperplasia) CAD (coronary artery disease) Cellulitis RIGHT LOWER LEG Chronic lower back pain CKD (chronic kidney disease), stage III Diabetes Diabetic polyneuropathy Erectile dysfunction Fatty infiltration of liver Foot drop Hearing loss History of removal of joint prosthesis of right knee due to infection History of seizures as a child Hx of myocardial infarction 10/2011 STRESS TEST COMPLETED 11/29/2019 Hyperlipidemia Microalbuminuria Morbid obesity Myalgia Osteoarthritis Palliative care patient Paresthesias Perennial allergic rhinitis Sleep apnea Sleep apnea with use of continuous positive airway pressure (CPAP) Unsteady gait Venous insufficiency Vertigo Surgical History Carpal tunnel syndrome of right wrist S/P ECTR: 10/28/2022 colonoscopy (09/02/16) H/O heart artery stent X2 2013 H/O total knee replacement left knee 12/14/2019, right knee 01/16/2021 History of tonsillectomy and adenoidectomy Family History Maternal Aunt Colon cancer Maternal Aunt Colon cancer Father , 70s Heart disease Mother Lung cancer Brother Liver failure Son , tractor accident Accident caused by farm tractor Social History Smoking/Tobacco Use Status: Never Smoking risk assessment performed?: Yes Alcohol Intake: never Drug use: Never Substance use type: does not use Housing: house Do you feel safe at home: Yes Do you feel safe in your relationship?: Yes Additional Social history: unable to assess to privately Meds Allergies and Home Medications Allergies Allergy/AdvReac Type Severity Reaction Status Date / Time amlodipine besylate AdvReac Mild edema Verified 07/29/23 06:12 [From Norvasc] enalapril maleate AdvReac Mild cough Verified 07/29/23 06:12 [From Vasotec] enalaprilat dihydrate AdvReac Mild cough Verified 07/29/23 06:12 [From Vasotec] pravastatin sodium AdvReac Mild myalgia Verified 07/29/23 06:12 [From Pravachol] from Lipitor rosuvastatin [From Crestor] AdvReac Mild Myalgia Verified 07/29/23 06:12 Home Medications Medication Instructions Recorded Confirmed Type losartan 100 mg tablet (Cozaar) 100 mg PO DAILY 11/01/13 07/29/23 History empagliflozin 10 mg tablet 25 mg PO DAILY 05/22/18 07/29/23 History (Jardiance) hydrochlorothiazide 50 mg tablet 50 mg PO DAILY #0 tab-caps 02/20/20 07/29/23 Rx carvedilol 25 mg tablet 25 mg PO BID 01/16/21 07/29/23 History lidocaine 5 % topical ointment 1 applic topical QHS 09/20/21 07/29/23 History loperamide 2 mg capsule (Imodium 2 mg PO Q6H PRN 09/20/21 07/29/23 History A-D) doxazosin 4 mg tablet (Cardura) 4 mg PO DAILY 02/06/22 07/29/23 History magnesium oxide 400 mg (241.3 mg 800 mg PO DAILY 07/21/22 07/29/23 History magnesium) tablet ropinirole 1 mg tablet 4 mg PO QHS 07/21/22 07/29/23 History apple cider vinegar 300 mg tablet 300 mg PO BID 07/29/22 07/29/23 History vitamin B complex (B 1 tab PO DAILY 09/25/22 07/29/23 History Complex-Vitamin B12 tablet) penicillin V potassium 500 mg 500 mg PO TID #273 tabs 12/25/22 07/29/23 Rx tablet insulin glargine 100 unit/mL 25 unit subcut QHS 04/01/23 07/29/23 History subcutaneous solution (Lantus U-100 Insulin) insulin lispro 100 unit/mL See Rx Instructions subcut 04/01/23 07/29/23 History subcutaneous pen (Humalog KwikPen .SLIDING SCALE (U-100) Insulin) fluticasone propionate 50 1 spray intranasal DAILY 05/28/23 07/29/23 History mcg/actuation nasal spray,suspension gabapentin 300 mg capsule See Rx Instructions PO DAILY 05/28/23 07/29/23 History povidone-iodine 10 % topical 1 applic topical DAILY 07/02/23 07/29/23 Rx solution (Betadine) disinfection of wound #118 mL ketoconazole 2 % topical cream 1 applic topical DAILY 3 months 07/16/23 07/29/23 Rx #60 grams urea 45 % topical gel (KEENAN-Urea) 1 applic topical BID #28 mL 07/16/23 07/29/23 Rx acetaminophen 500 mg tablet 1,000 mg PO TID #90 tabs 07/29/23 Rx aspirin 81 mg tablet,delayed 81 mg PO BID #60 tabs 07/29/23 Rx release celecoxib 200 mg capsule 200 mg PO BID #60 caps 07/29/23 Rx oxycodone 5 mg tablet 5 mg PO Q4H PRN pain #20 tabs 07/29/23 Rx pantoprazole 40 mg tablet,delayed 40 mg PO DAILY #30 tabs 07/29/23 Rx release Exam Resp Auscultation: clear to auscultation bilaterally Cardio Rate: regular rate Rhythm: regular rhythm Results Last Vital Signs Temp 36.4 C L 07/29/23 06:44 Pulse 77 07/29/23 06:44 Resp 15 07/29/23 06:44 BP 124/74 07/29/23 06:44 Pulse Ox 95 07/29/23 06:44
[2023-07-29] MEDS: ceFAZolin 3,000 MG in Normal Saline 100 ML 200 MG IVPB (08:03)
--- NOTE | 2023-07-29 09:20 | DI.RAD_ITS ---
Exam(s) XR HIP LT IN OR EXAM: XR HIP LT IN OR CLINICAL HISTORY: left hip djd TECHNIQUE: 2D and realtime digital imaging was performed. CONTRAST MATERIAL: Refer to procedure report. COMPARISON: CR XR PELVIS AP from 06/08/2023 FINDINGS: Fluoroscopy was provided for Dr. Wilson during the performance of a left total hip replacement. P lease refer to the procedure report for complete details. Ka,r=7.92 mGy IMPRESSION: RADIATION DOSE DELIVERED:
--- NOTE | 2023-07-29 10:25 | W.ANESPOSTOP ---
Postoperative Evaluation Date, Time and Location Date Performed: 07/29/23 Time Performed: 10:25 Patient Location: PACU Vital Signs Most Recent Imported Vital Signs: Most Recent Vital Signs Temp Pulse Resp BP Pulse Ox 36.3 C L 57 L 14 157/70 H 99 07/29/23 10:10 07/29/23 10:10 07/29/23 10:10 07/29/23 10:10 07/29/23 10:10 Pain Score Most Recent Pain Score: Most Recent Pain Score Pain Level 6 07/29/23 06:44 Assessment Mental Status: Awake (Alert & Oriented to Patient Baseline) Airway and Respiratory Function: Patent airway with normal (patient baseline) respiratory exam Cardiovascular Function: Hemodynamically Stable Hydration Status: Adequately Hydrated Nausea & Vomiting: No Nausea or Vomiting Pain: Pain is tolerable per patient Peripheral Nerve Block: Patient did not receive a nerve block
--- NOTE | 2023-07-29 10:50 | W.PM.OP ---
Date of service: 07/29/23 Time of Service: 10:50 Operative Note Operative Note DATE OF PROCEDURE: 07/29/23 PRE-OP DIAGNOSIS: Left Hip Osteoarthritis POST-OP DIAGNOSIS: same PROCEDURE: Left Anterior Total Hip Arthroplasty with Intraoperative Navigation SURGEON: Yrn Wilson DYE AND CHEMICAL COORDINATOR: Kris Livingston ANESTHESIA TYPE: General LMA/ETT Refer to Anesthesia Record ESTIMATED BLOOD LOSS: 300 PATHOLOGY: none sent TOURNIQUET TIME: 0 COMPLICATIONS: None Patient was transported to: PACU Patient's condition: stable Implants: 1. Depuy [place] Acetabular Component, 58mm 2. Depuy Acetabular Liner, [id number] 3. Depuy Actis Standard Collared Femoral Stem, Size 7 4. Depuy Altrx Ceramic Femoral Head, Size 36+5mm Indications: I have seen Kurtis in clinic for symptoms of hip arthritis, confirmed with radiographic findings. He has exhausted nonoperative methods and was having significant limitations in daily function and desired better function and less pain. I discussed the technical details of a hip replacement. I explained the risks of the procedure to include, but not limited to, bleeding, infection, pain, stiffness, fracture, damage to nerves and vessels, damage to muscles and tendons, loosening, instability, leg length inequality, need for repeat procedure, blood clot and cardiopulmonary demise. Despite these risks, Kurtis elected to proceed. Findings: There was significant signs of arthritis throughout the hip. The femoral head was flattened and there was complete loss of cartilage. Procedure Description: Kurtis was greeted in the preoperative holding area where the correct side was identified and marked. The consent was reviewed with the patient and signed. The history and physical was updated. All questions were answered. He was taken back to the operating room. Due to his known medical history, an arterial line was placed. A general anesthestic was then administered. The feet were wrapped with cast padding and Coban and then placed into the boot liners and then into the boots. Care was taken to protect the skin and make sure the heels were fully down and the boots were stable. The patient was then positioned onto the HANA table. Both legs were held in a neutral position. SCDs were applied. The patient was then slid down onto a peroneal post. Prophylactic antibiotics in the form of Cefazolin were administered. 1g of Tranxemic Acid was given intravenously within 30 minutes of incision. The left leg was then prepped with Chloraprep and draped in a standard fashion. A second prep with Chloraprep was performed prior to placement of a shower-curtain type drape with Iodine impregnated skin protection. A timeout to confirm correct identity, side and site, procedure, allergies, anesthesia, and medical concerns was performed. An obliquely oriented incision was made starting lateral to the ASIS and running distal over the Tensor Fascia Serina (TFL) muscle belly toward the fibular head, approximately 10cm. The skin and soft tissue was dissected sharply, through Johanny?s fascia, and to the fascia of the TFL. With the fascia and superior border of the IT band identified, the fascia was incised with a new knife just above any perforators from the IT band. The TFL muscle belly was bluntly dissected away from the fascia and moved laterally. The fat between TFL and rectus was identified to ensure the dissection was not within the TFL. Blunt dissection created space between abductors and the capsule and retractor was placed over the lateral femoral neck. The fibers of the rectus femoris tendon were identified and these were freed from the anterior capsule. A second cobra retractor was placed around the medial femoral neck. The TFL was further retracted laterally to show the deep fascia. Careful dissection through this layer identified three main crossing vessels of the lateral femoral circumflex. These were cauterized in multiple locations and then cut without any noticeable bleeding. The TFL was further released bluntly from the deep fascia to expose anterior hip capsule and fat The Theron orthopaedic retractor was then placed beneath the TFL and against sartorius and medial soft tissues to protect and retract the soft tissues. A T-capsulotomy was then performed starting at the superior lateral acetabulum and moving distally to the intertrochanteric ridge. These capsular flaps were tagged with a No. 1 Ethibond and elevated from within. The capsular flaps were released to the shoulder of the lateral neck and to the lesser trochanter to give excellent visualization of the proximal femur. A neck osteotomy was performed using an oscillating saw based on preoperative templates. This cut started in the shoulder and of the lateral neck and exited medially. The saw was at all times directed medially to avoid injury to the greater trochanter. Gross traction was applied to the leg and the osteotomy opened. The femoral head was removed with a corkscrew, making sure to protect the TFL on its exit. Traction was released after head removal. This was measured on the back table to determine the starting reamer size. Portions of the rectus obscuring visualization were minimally elevated off the superior acetabulum. An anterior retractor was placed over the anterior wall between capsule and labrum and attached to the Gripper retraction system. The femur was rotated to 90 degrees and medial capsule was fully released until the lesser trochanter was palpable and visible; the femur was returned to 30 degrees. A posterior retractor was placed similarly between capsule and labrum. This provided excellent visualization. The contents of the cotyloid fossa were removed with electrocautery and the labrum was removed with a knife. There was a notable floor osteophyte. There was significant chondromalacia of the superior acetabulum. Acetabular reaming began with a 54mm reamer. This first reaming was directed anterior to posterior and medial to get down to the true floor. This was inspected and reamed until the true floor was reached. The anterior retractor was then released and entry and exit was provided by traction on the capsular flaps. I then reamed sequentially up to a 58mm reamer where good fit was obtained. The larger reamers were oriented based on anatomical reference of the anterior and lateral lopez to ensure proper abduction and anteversion. Positioning and size was confirmed with the fluoroscopy. A 58mm Depuy [place] acetabular component was selected. The acetabulum was reamed around the periphery with the selected acetabular size to prevent a rim fit. The deep tissues were irrigated. The acetabular component was then impacted in a position of about 40-45 degrees of abduction and 15-20 degrees of anteversion, using the patient?s anatomy as the ultimate landmark. Fluoroscopy was used to confirm this. There was excellent regulatory services consultant of the acetabular component and the inserting handle was removed. The acetabular liner, Depuy [id number] polyethylene liner, was inserted and lined up with the tines of the acetabular component. There was no soft tissue interposition. The liner was then impacted into position and confirmed to be well-seated. A portion of the deangelo-articular cocktail was then injected around the acetabulum into the capsule and periosteum. This cocktail consisted of 123mg of Ropivacaine, 0.25mg of Epinephrine, 0.04mg of Clonidine, and 15mg of Ketorolac, diluted to 50cc. The leg was rotated to 120 degrees. Any remaining medial capsule was released until the lesser trochanter was easily palpable. A retractor was placed medially. The lateral capsule was further released into the shoulder to allow access to the greater trochanter. A Salazar retractor was placed over the greater trochanter which allowed the trochanter to flip in front of the capsule for excellent exposure. The leg was brought down into maximal extension and 20 degrees of adduction while ensuring there was no impingement on the acetabulum. Any remnant capsule within the trochanter was released. Piriformis and obturator externis were identified and protected. There was excellent access to the proximal femur. The lateral neck remnant was removed with a rongeur. A blunt canal probe was used to identify the canal and trajectory for later broaching. A box osteotome initiated the broach course. A small curved rasp and a curved curette were used to work laterally. Broaching then began with a starter Actis broach. This was inserted manually around the trochanter and into the canal before mallet blows. The broach was seated to the neck cut level based on the neck cut and the preoperative template. Sequential broaching was continued with the [employer] pneumatic broaching device until a tight fit was obtained with good rotational control of the femur. A trial standard neck was inserted along with a +5 trial head. The leg was brought out of extension and adduction and then reduced with traction and internal rotation. The leg was stable anteriorly in a position of 30 degrees of extension and 90 degrees of external rotation. Fluoroscopy was used to ensure there was no fracture and the stem was seated well. Leg lengths were checked with an AP pelvis and pelvic reference points. BioDetego navigation system was used to confirm appropriate positioning and leg length and offset. Once content with the desired offset and leg lengths, the leg was brought back into extension, external rotation and adduction. The periosteum and surrounding tissue was injected with remaining portion of the deangelo-articular cocktail. The proximal femur was irrigated as well as the deep tissues. The Depuy Actis standard collared stem, size 7, was then manually inserted into the proximal femur making sure to control rotation. It was then malleted into position with light blows, giving breaks to allow bone expansion and decrease risk of fracture. The selected Depuy Altrx Ceramic Head, size 36+5mm, was then placed onto the clean and dry trunnion and secured with impaction onto the tapered fit. The leg was brought back out of extension and adduction and reduced with traction and internal rotation. Stability was confirmed with no shuck at 90 degrees of external rotation and 30 degrees of extension. No impingement through range of motion arc. Final x-ray images were obtained with fluoroscopy to confirm adequate positioning and no intraoperative fracture. The deep tissues were thoroughly irrigated with Surgiphor, betadine solution. This was allowed to sit in the wound for 3 minutes before being thoroughly irrigated out with normal saline. The capsule was then reapproximated with the previously placed Ethibond sutures. The TFL fascia was finally closed with a No. 2 Stratafix, barbed suture. Deep tissues were then reapproximated with 0 Vicryl and a running 2-0 Vicryl. The skin was closed with a running 4-0 Monocryl in a subcuticular fashion. This was reinforced with skin glue. A Mepilex silver dressing was applied. At the end of the case, all counts were correct. Kurtis was transferred to the hospital bed without difficulty and suffering no apparent complication. He has a good prognosis. Physical therapy will start today and without restrictions, weight-bearing as tolerated. Aspirin 81mg BID will be used for DVT prophylaxis.
--- NOTE | 2023-07-29 14:17 | PT.INIE ---
Date of service: 07/29/23 Time of Service: 13:33 PT Notes Visit Reasons: OA L HIP Physical Therapy Inpatient Initial Evaluation Date: 07/29/2023 Referring Doctor: JOURDAN Crump PT Orders: PT CONSULT: S/P Ortho Surgery Precautions: Fall. Standard. WBAT on left LE with AD. Patient Profile/Admitting Diagnosis: Kurtis is an 78-year-old male with degenerative joint disease of the left hip and is status post left total hip arthroplasty on postoperative day 0. Colin Duke MD PMHX: All Active Problems? Venous insufficiency of both lower extremities (Acute) Ulcer of right foot with fat layer exposed (Acute) Controlled type 2 diabetes mellitus with ulcer of toe (Acute) Atherosclerosis of nul[place] arteries of right leg with ulceration of ankle (Acute) Degenerative joint disease of left hip (Acute) Impacted cerumen, bilateral (Acute) Ulcer of extremity due to chronic venous insufficiency (Acute) Pneumonia (Acute) Nail dystrophy (Acute) Lumbar stenosis (Acute) Carpal tunnel syndrome of left wrist (Acute) Bilateral hand numbness (Acute) Foot drop, bilateral (Acute) Diabetic neuropathy (Acute) Left sided sciatica (Acute) Impairment of speech discrimination (Acute) Asymmetrical sensorineural hearing loss (Acute) DVT prophylaxis (Acute) Sepsis (Acute) Infection of total right knee replacement (Acute) S/p irrigation and debridement; poly exchange; arthrotomy repair DOS: 10/04/2021 Advance care planning (Acute) Hypertension (Chronic) Bacteremia (Acute) Tubulovillous adenoma polyp of colon (Chronic) Noted by colonoscopy.Asymmetrical sensorineural hearing loss (Acute) History of total right knee replacement (Acute 01/16/21) First degree heart block (Acute) Discharge planning issues (Acute) DVT prophylaxis (Acute) Renal insufficiency (Chronic) Abnormal LFTs (Chronic) Secondary to fatty infiltrate of the liver. Cellulitis (Acute) History of total left knee replacement (TKR) (Acute 12/14/19) Dr. Wilson s/p debridement and poly exchange 02/10/20 Diabetes mellitus type 2 (Chronic) Since approximately 1997. On insulin thereapy. Last hemoglobin A1c 6.5% March 2013. 11-01-2013:? Most recent hemoglobin A1c was 6.6 ? date. Hyperlipidemia (Chronic) Obstructive sleep apnea syndrome (Chronic) Nocturnal CPAPBenign prostatic hyperplasia (Chronic) Obesity (Chronic) Benign hypertension (Chronic) Diabetic renal disease (Chronic) Chest pain, rule out acute myocardial infarction (Acute 11/01/13) Low blood magnesium (Acute 11/01/13) Tubular adenoma of colon (Acute 09/02/16) Medical History? Arthritis BPH (benign prostatic hyperplasia) CAD (coronary artery disease) Cellulitis RIGHT LOWER LEG Chronic lower back pain CKD (chronic kidney disease), stage III Diabetes Diabetic polyneuropathy Erectile dysfunction Fatty infiltration of liver Foot drop Hearing loss History of removal of joint prosthesis of right knee due to infection History of seizures as a child Hx of myocardial infarction 10/2011 STRESS TEST COMPLETED 11/29/2019 Hyperlipidemia Microalbuminuria Morbid obesity Myalgia Osteoarthritis Palliative care patient Paresthesias Perennial allergic rhinitis Sleep apnea Sleep apnea with use of continuous positive airway pressure (CPAP) Unsteady gait Venous insufficiency Vertigo Surgical History? Carpal tunnel syndrome of right wrist S/P ECTR: 10/28/2022 Colonoscopy (09/02/16) H/O heart artery stent X2 2013 H/O total knee replacement left knee 12/14/2019, right knee 01/16/2021 History of tonsillectomy and adenoidectomy Social History/Home Situation: Lives with in a private home with a ramp to enter. does the cooking, house chores, and laundry. may not be able to help physically with mobility performance for patient. Equipment Owned/DME: [facility] Subjective: Reports 1-2/10 pain throughout session. States that he feels much better with the walking, not hurting as he did prior to surgery. Denies headache, chest pain, and lightheadedness throughout session. Complained of being hungry as he has not had lunch, Nurse Annetta subramanianrised. Objective: General Observation: Resting in bed. Mepilex Ag over surgical incision. Finger oximeter in place. TEDS to B legs. Mental Status: Alert and oriented as to person, place, time, and purpose. Able to pay attention, focus, and respond appropriately. Pain: 1?2/10 in left hip Vital Signs: Closely monitored via telemetry ROM: Right Lower Extremity: Hip flexion lacks the last 25% of AROM. Hip abduction lacks the last 25% of AROM. Knee flexion WFL. Ankle dorsiflexion to neutral only. Ankle plantarflexion WFL. Left Lower Extremity: Hip flexion lacks the last 50% of AROM. Hip abduction lacks the last 50% of AROM. Knee flexion WFL. Ankle dorsiflexion to neutral only. Ankle plantarflexion WFL. Strength: Right Lower Extremity: Hip flexors 3-/5. Hip abductors 3-/5. Knee flexors 4-/5. Knee extensors 4-/5. Ankle dorsiflexors 4-/5. Ankle plantarflexors 4-/5. Left Lower Extremity: Hip flexors 3-/5. Hip abductors 3-/5. Knee flexors 3-/5. Knee extensors 3-/5. Ankle dorsiflexors 3-/5. Ankle plantarflexors 4-/5. Bed Mobility/Transfers: (Nurse Littlejohn assisting for safety) Rolling minimal assist Supine to sit with minimal assist to L LE Sit to stand with moderate assist using FWW, cues needed for posture, hand placement, movement sequencing Stand to sit with moderate assist using FWW, cues needed for posture, hand placement, movement sequencing Gait: Instructed patient with level surface ambulation of 12 feet requiring minimal assist with wheelchair follow by Nurse Littlejohn for safety. Position of comfort for trunk achieved in flexion. L knee flexion decreased. Step length and height asymmetric. Balance: Static Sitting: Normal Dynamic Sitting: Normal Static Standing: Fair Dynamic Standing: Fair Special Tests: Mobility Limitations Standardized Measure [facility] AM-PAC 6 clicks Basic Mobility Inpatient Short Form: Raw Score: 12 CMS Score: 69% deficit Informed Consent/Education: Patient was instructed in purpose of PT consult and plan of care. Agreeable to proceed with established PT POC to achieve personal goals. Assessment: Pre-existing spinal stenosis and L knee TKA limiting erect trunk positioning, L limb advancement and overall quality of gait. Patient presents with clinical signs and symptoms consistent with current/admitting diagnoses that have resulted to mobility limitations, gait instability, generalized weakness, and overall ADL decline as demonstrated by the following impairment level findings: 1. Decreased strength to L LE major muscle groups 2. Impaired sitting/standing balance 3. Impaired activity tolerance 4. Limitation of joint range of motion in L LE joints 5. Generalized weakness Impairments are contributing to the following functional limitations: 1. Decline in bed mobility skills 2. Decline in transfer skills 3. Difficulty with ambulation without assistive device and physical assistance 4. Increased completion time for mobility ADL performance 5. Increased risk for falls 6. Difficulty with managing steps alone safely Patient is assessed as a 60386 high complexity based on the following: History: 78-year-old male with past medical history as indicated above Examination: Demonstrable impairment in strength, balance, and mobility level with underlying impairments and functional limitations as exhibited above as well as deficit score of 69% utilizing the [facility] Mobility Inpatient Short Form Presentation: Evolving Decision Makin high complexity Goals: Goals X1 week 1. Supine-Sit independent 2. Sit-Supine independent 3. Sit-Stand independent 4. Stand-Sit independent with FWW 5. Bed-Chair independent with FWW 6. Chair-Bed independent with FWW 7. Independent gait on level surface with use of FWW for at least 100 feet without report of pain nor dyspnea 8. Good static and dynamic standing balance/tolerance Plan of Care/Treatment Plan: 1-2x/day, 7 days/week x 1 week. Plan of care has been reviewed with the CONTRACTING ENGINEER providing the service under Physical Therapy direction. Initiate Physical Therapy intervention for pain management as needed, strengthening, bed mobility, transfers, gait, stairs, balance training, and use of assistive device. DISCHARGE RECOMMENDATIONS: [] Home with no services [] [] Home with services [specify] [] Home with outpatient PT [] [] SNF for continued rehabilitation [] [] Assisted Care [] [] SNF versus LTC based on ability to participate and progress [] [X] SNF vs. PT based on ability to progress towards goals TREATMENT CODE/TIME: 71482 x 34 minutes beginning at 13:33 PM. Thank you for the opportunity to participate in the care of this patient. Nargis Bernabe PT, DPT, CLT [facility] [place], [place]
[2023-07-29] MEDS: Insulin Aspart 300 UNITS/3 ML PEN SC ×3 (14:24→17:34)
[2023-07-29] MEDS: Tamsulosin 0.4 MG CAPCR PO (16:10)
[2023-07-29] MEDS: Normal Saline 500 ML IV (16:12)
[2023-07-29] MEDS: ceFAZolin 1 GM/50 ML BAG IVPB (16:12)
[2023-07-29] MEDS: Normal Saline Flush 10 ML SYR IVP (17:03)
[2023-07-29] MEDS: Celecoxib 200 MG CAP PO (20:16)
[2023-07-29] MEDS: Carvedilol 25 MG TAB PO (20:17)
[2023-07-29] MEDS: Gabapentin 300 MG CAP 900 MG PO (21:28)
[2023-07-29] MEDS: rOPINIRole 1 MG TAB 2 MG PO (21:28)
[2023-07-29] MEDS: Doxazosin 2 MG TAB 4 MG PO (21:29)
[2023-07-29] MEDS: Insulin Glargine 300 UNITS/3 ML PEN 25 UNITS SC (21:30)
[2023-07-30] VITALS (13 sets, daily range): BP systolic 115–139; BP diastolic 50–55; PULSE 62–69; RESP 16–20; TEMP 36.1–36.3; O2SAT 94–98
[2023-07-30] MEDS: ceFAZolin 1 GM/50 ML BAG IVPB ×2 (00:16→08:26)
[2023-07-30] MEDS: Insulin Aspart 300 UNITS/3 ML PEN SC ×4 (08:12→12:03)
[2023-07-30] MEDS: Losartan 50 MG TAB 100 MG PO (08:14)
[2023-07-30] MEDS: Celecoxib 200 MG CAP PO (08:16)
[2023-07-30] MEDS: Pantoprazole 40 MG TABCR PO (08:16)
[2023-07-30] MEDS: Empaglifozin 25 MG TAB PO (08:16)
[2023-07-30] MEDS: Acetaminophen 500 MG TAB 1000 MG PO (08:17)
[2023-07-30] MEDS: Carvedilol 25 MG TAB PO (08:17)
[2023-07-30] MEDS: Magnesium Oxide 400 MG TAB 800 MG PO (08:17)
[2023-07-30] MEDS: Vitamins B Comp w/C TAB 1 TAB PO (08:17)
[2023-07-30] MEDS: hydroCHLOROthiazide 25 MG TAB 50 MG PO (08:18)
[2023-07-30] MEDS: Ketoconazole 2% CREAM 15 GM TUBE TP (08:20)
[2023-07-30] MEDS: Normal Saline Flush 10 ML SYR IVP (08:27)
--- NOTE | 2023-07-30 08:36 | PDOC.CMIN ---
Date of service: 07/30/23 Time of Service: 08:36 Care Management Initial Assmt Initial Assessment REASON FOR HOSPITALIZATION:: Degenerative joint disease of left hip: PREVIOUS FUNCTIONAL STATUS/SOCIAL/FAMILY SUPPORTS:: Faustino resides in [place] with his , Jessica. Their daughter, Amrita and grandchildren also reside in [place]. 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 He is independent at baseline with supportive family and friends.faustino uses a walker for ambulatory assistance and receives Meals on Wheels twice a week. ADVANCE DIRECTIVES:: On file. Jessica [facility] Has patient been provided with info about the portal/API?: Yes Did the patient sign up for the portal?: Yes CODE STATUS:: Full Code INSURANCE COVERAGE / FINANCIAL ISSUES:: [employer] Financial [employer]ist 100 CURRENT HOME/COMMUNITY SERVICES/EQUIPMENT:: Faustino uses a walker. Meals on Wheels twice a week PRIMARY CARE PHYSICIAN:: Cameron Mcarthur POTENTIAL DISCHARGE NEEDS:: follow up with Orthopedic surgeon and PCP PATIENT/FAMILY EDUCATION NEEDS:: Review of discharge instructions, limitations, activity, follow up plan, discuss Ask Me Three TRANSPORTATION:: via private vehicle with family PLAN:: Faustino will likely be discharged home with no new services. He will follow up with his orthopedic surgeon and plan of care and transport with family. CM will continue to support Faustino and his discharge planning needs. PFSH All Active Problems Onychogryphosis (Acute) Onychomycosis (Acute) Venous insufficiency of both lower extremities (Acute) Ulcer of right foot with fat layer exposed (Acute) Controlled type 2 diabetes mellitus with ulcer of toe (Acute) Atherosclerosis of [place] arteries of right leg with ulceration of ankle (Acute) Degenerative joint disease of left hip (Acute) Impacted cerumen, bilateral (Acute) Ulcer of extremity due to chronic venous insufficiency (Acute) Pneumonia (Acute) Nail dystrophy (Acute) Lumbar stenosis (Acute) Carpal tunnel syndrome of left wrist (Acute) Bilateral hand numbness (Acute) Foot drop, bilateral (Acute) Diabetic neuropathy (Acute) Left sided sciatica (Acute) Impairment of speech discrimination (Acute) Asymmetrical sensorineural hearing loss (Acute) DVT prophylaxis (Acute) Sepsis (Acute) Infection of total right knee replacement (Acute) S/p irrigation and debridement; poly exchange; arthrotomy repair DOS: 10/04/2021 Advance care planning (Acute) Hypertension (Chronic) Bacteremia (Acute) Tubulovillous adenoma polyp of colon (Chronic) Noted by colonoscopy. Asymmetrical sensorineural hearing loss (Acute) History of total right knee replacement (Acute 01/16/21) First degree heart block (Acute) Discharge planning issues (Acute) DVT prophylaxis (Acute) Renal insufficiency (Chronic) Abnormal LFTs (Chronic) Secondary to fartty infiltrate of the liver. Cellulitis (Acute) History of total left knee replacement (TKR) (Acute 12/14/19) Dr. Wilson s/p debridement and poly exchange 02/10/20 Diabetes mellitus type 2 (Chronic) Since approximately 1997. On insulin thereapy. Last hemoglobin A1c 6.5% March 2013. 11-01-2013: Most recent hemoglobin A1c was 6.6 ? date. Hyperlipidemia (Chronic) Obstructive sleep apnea syndrome (Chronic) Nocturnal CPAP Benign prostatic hyperplasia (Chronic) Obesity (Chronic) Benign hypertension (Chronic) Diabetic renal disease (Chronic) Chest pain, rule out acute myocardial infarction (Acute 11/01/13) Low blood magnesium (Acute 11/01/13) Tubular adenoma of colon (Acute 09/02/16) Medical History Arthritis BPH (benign prostatic hyperplasia) CAD (coronary artery disease) Cellulitis RIGHT LOWER LEG Chronic lower back pain CKD (chronic kidney disease), stage III Diabetes Diabetic polyneuropathy Erectile dysfunction Fatty infiltration of liver Foot drop Hearing loss History of removal of joint prosthesis of right knee due to infection History of seizures as a child Hx of myocardial infarction 10/2011 STRESS TEST COMPLETED 11/29/2019 Hyperlipidemia Microalbuminuria Morbid obesity Myalgia Osteoarthritis Palliative care patient Paresthesias Perennial allergic rhinitis Sleep apnea Sleep apnea with use of continuous positive airway pressure (CPAP) Unsteady gait Venous insufficiency Vertigo Surgical History Carpal tunnel syndrome of right wrist S/P ECTR: 10/28/2022 colonoscopy (09/02/16) H/O heart artery stent X2 2014 H/O total knee replacement left knee 12/14/2019, right knee 01/16/2021 History of tonsillectomy and adenoidectomy Family History Maternal Aunt Colon cancer Maternal Aunt Colon cancer Father , 70s Heart disease Mother Lung cancer Brother Liver failure Son , tractor accident Accident caused by farm tractor Social History Smoking/Tobacco Use Status: Never Smoking risk assessment performed?: Yes Alcohol Intake: never Drug use: Never Substance use type: does not use Housing: house Do you feel safe at home: Yes Do you feel safe in your relationship?: Yes Additional Social history: unable to assess to privately
[2023-07-30] MEDS: Gabapentin 300 MG CAP 600 MG PO (08:43)
[2023-07-30] MEDS: Fluticasone NASAL SPRAY 16 GM BTL NS (08:46)
--- NOTE | 2023-07-30 09:27 | PT.INTREAT ---
Date of service: 07/30/23 Time of Service: 08:59 PT Notes Visit Reasons: OA L HIP Physical Therapy Inpatient Treatment Note Date: 07/30/2023 Precautions: Fall. Standard.? WBAT on left LE with AD. Subjective: Reports 0/10 pain throughout session.? Looking forward to hopefully going home today. Okay with HH PT and then back to OP PT as recommended. Objective: General Observation: Resting in bed.? Mepilex Ag over surgical incision.? Finger oximeter in place.? TEDS to B legs. Mental Status: Alert and oriented as to person, place, time, and purpose. Able to pay attention, focus, and respond appropriately. Pain: 1?2/10 in left hip Vital Signs: Closely monitored via telemetry Bed Mobility/Transfers: (Nurse Annetta assisting for safety) Sit to stand with stand by assist, cues needed for posture,? hand placement,? movement sequencing Stand to sit with stand by assist, cues needed for posture,? hand placement,? movement sequencing Gait: Instructed patient with level surface ambulation of 80 feet requiring stand by assist with wheelchair follow by PT. Trunk much more erect. Cueing provided for posture, safe directional change technique, and safe limb advancement. L knee flexion decreased.? Step length and height asymmetric. Balance: Static Sitting: Normal Dynamic Sitting: Normal Static Standing: Fair Dynamic Standing: Fair THERA EX: Guidance provided in safe performance/execution of seated B LE exercises and deepe breathing exercises to maximize B LE joint flexibility, functional mobility, and strength: Trained patient with correct performance of exercises below to maximize motor control, joint flexibility, soft tissue extensibility of the B hip musculature to facilitate return to independent functional mobility performance. Access Code: [email or web address] URL: [email or web address] Date: 07/02/2023 Prepared by: Nargis Bernabe Exercises - Gluteal Sets - 1 x daily - 7 x weekly - 1 sets - 10 reps - 5 hold - Supine Heel Slide - 1 x daily - 7 x weekly - 1 sets - 10 reps - 5 hold - Supine Ankle Pumps - 1 x daily - 7 x weekly - 1 sets - 10 reps - 5 hold - Seated March - 1 x daily - 7 x weekly - 1 sets - 10 reps - 5 hold - Seated Long Arc Quad - 1 x daily - 7 x weekly - 1 sets - 10 reps - 5 hold - B ankle PF/DF in standing while holding onto sturdy surface x 5 ASSESSMENT: Much improved activity tolerance with increased distance coverage with level surface ambulation with no increase in pain report. Trunk much upright with limb advancement more controlled and steady. Will require continued PT with HH to optimize safety at home. Plan of Care/Treatment Plan: D/C to home with HH PT for continued functional obility progression, strengthening and balance training. DISCHARGE RECOMMENDATIONS: [] ? Home with no services [] [X] ? Home with services. Patient will benefit from home health PT services in order to progress mobility level using least restrictive assistive ambulatory device, assess home safety, identify additional equipment needs, and establish a functional maintenance program that will increase ability of patient to remain at home. [] ? Home with outpatient PT [] [] ? SNF for continued rehabilitation [] [] ? [facility] Care [] [] ? SNF versus LTC based on ability to participate and progress [] TREATMENT CODE/TIME: 06145 x 15 m (1 unit)inutes, 08465 x 10 minutes (1 unit) beginning at 8:59 AM.
--- NOTE | 2023-07-30 11:01 | W.PM.DS.N ---
Date of service: 07/30/23 Time of Service: 11:01 DS: Diagnosis Discharge Diagnosis (1) Degenerative joint disease of left hip: Status: Acute Discharge Plan Disposition Patient Disposition: Home W/Home Health Services Condition: Good Discharge Details Reason For Visit: OA L HIP Admit Date/Time: 07/29/23 07:21 Admit Provider: Yrn Wilson Attending Provider: Yrn Wilson Primary Care Provider: Cameron Mcarthur Hospital Course Hospital Course: Patient was admitted to the medical/surgical floor following the procedure. The surgery was tolerated well without any notable medical, surgical, or anesthetic complications. Mobilization began postoperatively. He was voiding spontaneously. Vitals were stable. Physical therapy worked with the patient and was cleared for discharge home. No acute medical issues. Pain was controlled on oral regimen. Home Meds and New Rx's Prescriptions: New celecoxib 200 mg capsule 200 mg PO BID Qty: 60 0RF aspirin 81 mg tablet,delayed release (DR/EC) 81 mg PO BID Qty: 60 0RF acetaminophen 500 mg tablet 1,000 mg PO TID Qty: 90 3RF pantoprazole 40 mg tablet,delayed release (DR/EC) 40 mg PO DAILY Qty: 30 0RF oxycodone 5 mg tablet 5 mg PO Q4H MDD 6 tabs PRN (Reason: pain) Qty: 20 0RF Continued loperamide [Imodium A-D] 2 mg capsule 2 mg PO Q6H PRN lidocaine 5 % ointment 1 applic topical QHS ropinirole 1 mg tablet 2 mg PO QHS Rx Instructions: administer 1-3 hours before bedtime magnesium oxide 400 mg (241.3 mg magnesium) tablet 800 mg PO DAILY insulin glargine [Lantus U-100 Insulin] 100 unit/mL solution 25 unit subcut QHS Patient Comments: pt. took 25 units vitamin B complex [B Complex-Vitamin B12] Tablet 1 tab PO DAILY apple cider vinegar 300 mg tablet 300 mg PO BID fluticasone propionate 50 mcg/actuation spray,suspension 1 spray intranasal DAILY Rx Instructions: administer into each nostril povidone-iodine [Betadine] 10 % solution 1 applic topical DAILY Qty: 118 0RF ketoconazole 2 % cream 1 applic topical DAILY 90 Days Qty: 60 0RF Rx Instructions: Apply to all 10 toenails once a day urea [KEENAN-Urea] 45 % gel 1 applic topical BID Qty: 28 3RF Patient Comments: pt hasnt started using yet Rx Instructions: Apply to toenails twice a day doxazosin [Cardura] 4 mg tablet 4 mg PO QPM penicillin V potassium 500 mg tablet 500 mg PO TID Qty: 273 3RF Rx Instructions: take 1 tablet by mouth three times daily gabapentin 300 mg capsule See Rx Instructions PO DAILY Rx Instructions: take 2 capsules by mouth every morning and each noon, and 3 capsules every evening PO daily; losartan [Cozaar] 100 MG tablet 100 mg PO DAILY insulin lispro [Humalog KwikPen Insulin] 100 unit/mL insulin pen See Rx Instructions subcut .SLIDING SCALE Patient Comments: pt. reports taking 15 units Rx Instructions: subcutaneously SLIDING SCALE; bolus range of 15-25u at 2 meals a day (SQ SLIDING SCALE); Jardiance 10 MG tablet 25 mg PO DAILY hydrochlorothiazide 50 MG tablet 50 mg PO DAILY Qty: 0 0RF carvedilol 25 mg tablet 25 mg PO BID Discontinued aspirin 81 mg capsule 81 mg PO DAILY acetaminophen 500 mg tablet 1,000 mg PO TID Qty: 90 0RF ibuprofen 600 mg tablet 600 mg PO TID PRN (Reason: pain) Qty: 90 0RF Discharge Instructions Additional Instructions: Total Hip Discharge Instructions Activity: The most important activity is to walk. You should try to take short walks a few times a day. You have no restrictions on movement or positioning, but do not try to force what you do. You will find some stiffness and weakness with hip flexion (lifting your knee). Do not try to strengthen this too early, continue to practice walking and stairs and this will come. - Outpatient physical therapy can be helpful to help return you to a normal gait and improve your flexibility and strength. This can start around 2 weeks. For some patients, it?s not necessary. Usually this is determined at the time of discharge or at the first post-operative visit. - You should wear the VERENICE hose on both legs for 2 weeks. Dressing: Keep the surgical dressing in place for at least one week. After the first week it may be removed and replace with light gauze and tape or nothing. It may get wet after 3 days but avoid soaking the dressing. If it gets wet, just lightly pat dry. It is important to always keep some gauze between skin folds, especially when you are sitting. Spend some time with the wound exposed when you are lying flat as the incision does wrinkle onto itself. Medications: - You should take Tylenol and an anti-inflammatory Celebrex as your primary pain control medications. If the Celebrex is too expensive or not covered, please call the office for another alternative (Advil/Ibuprofen or Naproxen/Aleve). - You have been prescribed a stronger pain medication Oxycodone for breakthrough pain, take as needed as prescribed. - You have also been prescribed a stomach acid reduction agent Pantoprozole to help reduce stomach acid and reflux. - You will be taking Aspirin 81mg twice a day for DVT prevention unless instructed otherwise. - If you have constipation you should take Colace or Miralax (both [id number]). It takes most people 3-4 days to have a bowel movement. Follow-up: 2 weeks If you have any acute concerns or questions, please do not hesitate to contact the office at [phone]. You may contact Dr. Wilson with any questions after hours through the hospital at [phone] or on his cell phone at [phone]. 1. Encounter Date and Reason I certify that Kurtis Cesia Annabelle was seen by Yrn Wilson MD on 07/30/23 and that I had a [id number] encounter with this patient that meets the physician face to face encounter requirements. 2. Clinical Findings Supporting Skilled Need and Homebound Status I certify that home health services are medically necessary, include either intermittent fci and/or physical/speech therapy, and that this patient is homebound in that absences from the home require considerable and taxing effort and are infrequent or of short duration, or are attributable to the need to receive medical care. [X] (a) Attached documentation from encounter provides clinical findings supporting skilled need and homebound status (including what assistance patient requires to leave the home). The encounter with the patient was in whole, or in part, for the following medical condition, which is the primary reason for home health care: OA L HIP Detention: Physical Therapy: Kurtis would benefit from home health physical therapy due to notable weakness and gait dysfunction from severe arthritis of the left hip s/p anterior hip replacement. He has no restrictions in positioning and is weight bearing as tolerated. He has other significant history which limits his gait including chronic knee weakness from replacement and quadriceps rupture and infection. He also has peripheral neuropathy. Speech Therapy: Homebound: Kurtis is unable to leave his home unassisted. He has significant weakness and gait dysfunction. 3. Certification and Authentication I certify that I composed the above information based on my clinical judgement relating to this patient's medical condition and, if applicable, clinical findings communicated to me by the NPP or inpatient physician who performed the Home Health Referral. All further orders will be obtained through Dr. Wilson Referrals: Yrn Wilson MD [ [facility] STAFF PHYSICIAN] - Activity:: Activity as Tolerated Equipment/Supplies:: Walker Diet:: As Tolerated Discharge Orders Discharge Orders: Discharge Order (Routine); Ordered 07/30/23 Ordered By: Yrn Wilson DS: Summary Time Spent with Patient providing and/or coordinating discharge services: Less than 30 minutes Status at Discharge Functional status at discharge: independent ambulation Overall status at discharge: patient is progressing back to baseline Mental Status: mental status grossly normal Speech and Movement: speech and movement normal Mood: congruent mood Affect: normal affect Exam Narrative Exam Narrative: NAD. AAOx3. L hip dressing c/d/i. No significant pain with ER/IR of the hip. SILT DP/SP/Tib. +DP/PT Psych Mental Status: mental status grossly normal Speech and Movement: speech and movement normal Mood: congruent mood Affect: normal affect DS: Data Vitals/I&O Vitals and I&O: Vital Signs Temperature 36.1 C L 07/29/23 16:00 Temperature Source Temporal Artery Scan 07/29/23 19:00 Pulse 69 07/30/23 08:00 Pulse Rhythm Regular 07/30/23 08:59 Respiratory Rate 16 07/30/23 08:00 Respiratory Effort Normal 07/30/23 08:59 Respiratory Depth Normal 07/30/23 08:59 Respiratory Pattern Normal 07/30/23 08:59 Blood Pressure 139/50 L 07/30/23 07:26 Blood Pressure Mean 74 07/30/23 07:26 Pulse Oximetry 94 07/30/23 09:00 Respiratory End-tidal CO2 30 07/29/23 11:25 Oxygen Delivery Method Room Air 07/29/23 19:00 Oxygen Flow Rate 0 07/29/23 19:00 Fraction of Inspired Oxygen (FIO2) 21 07/30/23 08:00 Pain Level 1 07/30/23 09:31 Intake & Output 07/29/23 07/29/23 07/30/23 11:59 23:59 11:59 Intake Total 948.001 / 1783.668 835.667 / 1783.668 500 / 500 Output Total 300 / 1625 1325 / 1625 490 / 490 Balance 648.001 / 158.668 -489.333 / 158.668 10 / 10 Weight 124.8 kg Intake: IV 948.001 / 1322.668 374.667 / 1322.668 50 / 50 Oral 461 / 461 450 / 450 Output: Urine 1325 / 1325 490 / 490 Estimated Blood Loss 300 / 300 Other: Urine Color Yellow Urine Appearance Clear Clear Urine Odor Strong Comment UNABLE Pt has voided x2. Prior to 1800 order deadline. Emesis Description None Voiding Methods Urinal Urinal PFSH All Active Problems Onychogryphosis (Acute) Onychomycosis (Acute) Venous insufficiency of both lower extremities (Acute) Ulcer of right foot with fat layer exposed (Acute) Controlled type 2 diabetes mellitus with ulcer of toe (Acute) Atherosclerosis of [place] arteries of right leg with ulceration of ankle (Acute) Degenerative joint disease of left hip (Acute) Impacted cerumen, bilateral (Acute) Ulcer of extremity due to chronic venous insufficiency (Acute) Pneumonia (Acute) Nail dystrophy (Acute) Lumbar stenosis (Acute) Carpal tunnel syndrome of left wrist (Acute) Bilateral hand numbness (Acute) Foot drop, bilateral (Acute) Diabetic neuropathy (Acute) Left sided sciatica (Acute) Impairment of speech discrimination (Acute) Asymmetrical sensorineural hearing loss (Acute) DVT prophylaxis (Acute) Sepsis (Acute) Infection of total right knee replacement (Acute) S/p irrigation and debridement; poly exchange; arthrotomy repair DOS: 10/04/2021 Advance care planning (Acute) Hypertension (Chronic) Bacteremia (Acute) Tubulovillous adenoma polyp of colon (Chronic) Noted by colonoscopy. Asymmetrical sensorineural hearing loss (Acute) History of total right knee replacement (Acute 01/16/21) First degree heart block (Acute) Discharge planning issues (Acute) DVT prophylaxis (Acute) Renal insufficiency (Chronic) Abnormal LFTs (Chronic) Secondary to fartty infiltrate of the liver. Cellulitis (Acute) History of total left knee replacement (TKR) (Acute 12/14/19) Dr. Wilson s/p debridement and poly exchange 02/10/20 Diabetes mellitus type 2 (Chronic) Since approximately 1997. On insulin thereapy. Last hemoglobin A1c 6.5% March 2013. 11-01-2013: Most recent hemoglobin A1c was 6.6 ? date. Hyperlipidemia (Chronic) Obstructive sleep apnea syndrome (Chronic) Nocturnal CPAP Benign prostatic hyperplasia (Chronic) Obesity (Chronic) Benign hypertension (Chronic) Diabetic renal disease (Chronic) Chest pain, rule out acute myocardial infarction (Acute 11/01/13) Low blood magnesium (Acute 11/01/13) Tubular adenoma of colon (Acute 09/02/16) Medical History Arthritis BPH (benign prostatic hyperplasia) CAD (coronary artery disease) Cellulitis RIGHT LOWER LEG Chronic lower back pain CKD (chronic kidney disease), stage III Diabetes Diabetic polyneuropathy Erectile dysfunction Fatty infiltration of liver Foot drop Hearing loss History of removal of joint prosthesis of right knee due to infection History of seizures as a child Hx of myocardial infarction 10/2011 STRESS TEST COMPLETED 11/29/2019 Hyperlipidemia Microalbuminuria Morbid obesity Myalgia Osteoarthritis Palliative care patient Paresthesias Perennial allergic rhinitis Sleep apnea Sleep apnea with use of continuous positive airway pressure (CPAP) Unsteady gait Venous insufficiency Vertigo Surgical History Carpal tunnel syndrome of right wrist S/P ECTR: 10/28/2022 colonoscopy (09/02/16) H/O heart artery stent X2 2014 H/O total knee replacement left knee 12/14/2019, right knee 01/16/2021 History of tonsillectomy and adenoidectomy Family History Maternal Aunt Colon cancer Maternal Aunt Colon cancer Father , 70s Heart disease Mother Lung cancer Brother Liver failure Son , tractor accident Accident caused by farm tractor Social History Smoking/Tobacco Use Status: Never Smoking risk assessment performed?: Yes Alcohol Intake: never Drug use: Never Substance use type: does not use Housing: house Do you feel safe at home: Yes Do you feel safe in your relationship?: Yes Additional Social history: unable to assess to privately Time Spent with Patient Time Spent with Patient: <45 minutes Time was spent: preparing to see the patient(eg.review tests), referring, communicating with other health child care director, counseling the patient and care coordination
--- NOTE | 2023-07-30 15:49 | NUR.NOTE ---
Prior to discharge, RN spoke to Yissel at Home Health: D/C summary sent top [phone], will call back if needed
--- NOTE | 2023-07-30 17:03 | PDOC.CMPRO ---
Date of service: 07/30/23 Time of Service: 17:03 Care Management Progress Note Progress Note Text Progress Note Text: Kurtis was preparing for discharge when CM met with him. He was sitting up in a chair visiting with his family. He stated he feels well. He had a left total hip arthroplasty yesterday and did well both intra-operatively and post-operatively. He was seen by PT and cleared for discharge. New home health orders for physical therapy were placed. He will transport home via private vehicle with his family.
--- NOTE | 2023-08-01 08:07 | PT.INDS ---
PT Notes Visit Reasons: OA L HIP Physical Therapy Inpatient Discharge Summary Date: 08/01/23 Treatment Dates: 07/29/2023 - 07/30/23 This document serves as a summary of care. No PT services were provided on this date. Referring Doctor: JOURDAN Crump PT Orders: PT CONSULT: S/P Ortho Surgery Precautions: Fall. Standard. WBAT on left LE with AD. Patient Profile/Admitting Diagnosis: Kurtis is an 78-year-old male with degenerative joint disease of the left hip and is status post left total hip arthroplasty. Patient was seen for 2 sessions of PT intervention over the course of 2 days. He as able to demonstrate safety and mobility sufficient to allow for safe return home with HH PT. PMHX: All Active Problems? Venous insufficiency of both lower extremities (Acute) Ulcer of right foot with fat layer exposed (Acute) Controlled type 2 diabetes mellitus with ulcer of toe (Acute) Atherosclerosis of [place] arteries of right leg with ulceration of ankle (Acute) Degenerative joint disease of left hip (Acute) Impacted cerumen, bilateral (Acute) Ulcer of extremity due to chronic venous insufficiency (Acute) Pneumonia (Acute) Nail dystrophy (Acute) Lumbar stenosis (Acute) Carpal tunnel syndrome of left wrist (Acute) Bilateral hand numbness (Acute) Foot drop, bilateral (Acute) Diabetic neuropathy (Acute) Left sided sciatica (Acute) Impairment of speech discrimination (Acute) Asymmetrical sensorineural hearing loss (Acute) DVT prophylaxis (Acute) Sepsis (Acute) Infection of total right knee replacement (Acute) S/p irrigation and debridement; poly exchange; arthrotomy repair DOS: 10/04/2021 Advance care planning (Acute) Hypertension (Chronic) Bacteremia (Acute) Tubulovillous adenoma polyp of colon (Chronic) Noted by colonoscopy.Asymmetrical sensorineural hearing loss (Acute) History of total right knee replacement (Acute 01/16/21) First degree heart block (Acute) Discharge planning issues (Acute) DVT prophylaxis (Acute) Renal insufficiency (Chronic) Abnormal LFTs (Chronic) Secondary to fatty infiltrate of the liver. Cellulitis (Acute) History of total left knee replacement (TKR) (Acute 12/14/19) Dr. Wilson s/p debridement and poly exchange 02/10/20 Diabetes mellitus type 2 (Chronic) Since approximately 1997. On insulin thereapy. Last hemoglobin A1c 6.5% March 2013. 11-01-2013:? Most recent hemoglobin A1c was 6.6 ? date. Hyperlipidemia (Chronic) Obstructive sleep apnea syndrome (Chronic) Nocturnal CPAPBenign prostatic hyperplasia (Chronic) Obesity (Chronic) Benign hypertension (Chronic) Diabetic renal disease (Chronic) Chest pain, rule out acute myocardial infarction (Acute 11/01/13) Low blood magnesium (Acute 11/01/13) Tubular adenoma of colon (Acute 09/02/16) Medical History? Arthritis BPH (benign prostatic hyperplasia) CAD (coronary artery disease) Cellulitis RIGHT LOWER LEG Chronic lower back pain CKD (chronic kidney disease), stage III Diabetes Diabetic polyneuropathy Erectile dysfunction Fatty infiltration of liver Foot drop Hearing loss History of removal of joint prosthesis of right knee due to infection History of seizures as a child Hx of myocardial infarction 10/2011 STRESS TEST COMPLETED 11/29/2019 Hyperlipidemia Microalbuminuria Morbid obesity Myalgia Osteoarthritis Palliative care patient Paresthesias Perennial allergic rhinitis Sleep apnea Sleep apnea with use of continuous positive airway pressure (CPAP) Unsteady gait Venous insufficiency Vertigo Surgical History? Carpal tunnel syndrome of right wrist S/P ECTR: 10/28/2022 Colonoscopy (09/02/16) H/O heart artery stent X2 2013 H/O total knee replacement left knee 12/14/2019, right knee 01/16/2021 History of tonsillectomy and adenoidectomy Social History/Home Situation: Lives with in a private home with a ramp to enter. Equipment Owned/DME: [facility] Subjective: none obtained Objective: ROM: Right Lower Extremity: Hip flexion lacks the last 25% of AROM. Hip abduction lacks the last 25% of AROM. Knee flexion WFL. Ankle dorsiflexion to neutral only. Ankle plantarflexion WFL. Left Lower Extremity: Hip flexion lacks the last 50% of AROM. Hip abduction lacks the last 50% of AROM. Knee flexion WFL. Ankle dorsiflexion to neutral only. Ankle plantarflexion WFL. Strength: Right Lower Extremity: Hip flexors 3-/5. Hip abductors 3-/5. Knee flexors 4-/5. Knee extensors 4-/5. Ankle dorsiflexors 4-/5. Ankle plantarflexors 4-/5. Left Lower Extremity: Hip flexors 3-/5. Hip abductors 3-/5. Knee flexors 3-/5. Knee extensors 3-/5. Ankle dorsiflexors 3-/5. Ankle plantarflexors 4-/5. Bed Mobility/Transfers: Sit to stand with stand by assist, cues needed for posture,? hand placement,? movement sequencing Stand to sit with stand by assist, cues needed for posture,? hand placement,? movement sequencing Gait: Instructed patient with level surface ambulation of 80 feet requiring stand by assist with wheelchair follow by PT.? Trunk much more erect. ? Cueing provided for posture,? safe directional change technique,? and safe limb advancement.? L knee flexion decreased.? Step length and height asymmetric. Balance: Static Sitting: Normal Dynamic Sitting: Normal Static Standing: Fair Dynamic Standing: Fair Assessment: Pre-existing spinal stenosis and L knee TKA limiting erect trunk positioning, L limb advancement and overall quality of gait. Patient was able to demonstrate improvements in mobility sufficient to allow for safe return home with family support and HH PT. Goals: Goals X1 week 1. Supine-Sit independent (Progressing Toward) 2. Sit-Supine independent (Progressing Toward) 3. Sit-Stand independent (Progressing Toward) 4. Stand-Sit independent with FWW (Progressing Toward) 5. Bed-Chair independent with FWW (Progressing Toward) 6. Chair-Bed independent with FWW (Progressing Toward) 7. Independent gait on level surface with use of FWW for at least 100 feet without report of pain nor dyspnea (Progressing Toward) 8. Good static and dynamic standing balance/tolerance (Progressing Toward) Plan of Care/Treatment Plan: D/C from PT in acute care setting DISCHARGE RECOMMENDATIONS: Home with HH PT TREATMENT CODE/TIME: none Thank you for the opportunity to participate in the care of this patient. Parvin Seymour PT, DPT [facility] [place], [place]
== END 2023-07-30 13:05 | disposition home health service (06) ==
LOC: SUR 07:25 → ICU 11:53
PROVIDERS: Admitting Provider Student in an Organized Health Care Education/Training Program; PCP Family Medicine; Visit Provider Student in an Organized Health Care Education/Training Program
PROC: (CPT 27130; principal; 2023-07-29 07:30)
DX: M16.12 Unilateral primary osteoarthritis, left hip (principal); Z79.4 Long term (current) use of insulin; I87.2 Venous insufficiency (chronic) (peripheral); I70.233 Atherosclerosis of native arteries of right leg with ulceration of ankle; L97.319 Non-pressure chronic ulcer of right ankle with unspecified severity; E11.40 Type 2 diabetes mellitus with diabetic neuropathy, unspecified; M21.372 Foot drop, left foot; M21.371 Foot drop, right foot; G47.33 Obstructive sleep apnea (adult) (pediatric); I10 Essential (primary) hypertension; E66.9 Obesity, unspecified; Z68.41 Body mass index [BMI] 40.0-44.9, adult; Z79.899 Other long term (current) drug therapy
CPT/HCPCS: 27130; 20985; C1776; 96365; 96366; 97110; 97163; 97530; 73501; 94660; J0690; J1100; J2371; J2405; J2704; J3490

== ENCOUNTER 2023-08-14 10:56 | Outpatient (CLI) | payer MEDICARE, SELFPAY ==
--- NOTE | 2023-08-14 11:04 | DI.RAD_ITS ---
Exam(s) XR HIP LT COMPLETE AP PELVIS EXAM: XR HIP LT COMPLETE AP PELVIS CLINICAL HISTORY: 1ST POST OP S/P L DWAYNE. TECHNIQUE: 2D digital imaging was performed. Two views. COMPARISON: CR XR PELVIS AP from 06/08/2023 XA XR HIP LT IN OR from 07/29/2023 FINDINGS: There has been no change in the alignment of the left hip prosthesis. There are no abnormal surround ing bony lucencies. The right hip shows mild degenerative changes. DATA REPOSITORY: RADIATION DOSE DELIVERED:
== END 2023-08-14 10:57 | disposition home or self-care (01) ==
LOC: DIORS 10:56
PROVIDERS: PCP Family Medicine; Referring Provider Family Medicine; Visit Provider Student in an Organized Health Care Education/Training Program
DX: Z96.642 Presence of left artificial hip joint (principal); Z47.1 Aftercare following joint replacement surgery
CPT/HCPCS: 73502

== ENCOUNTER → 2023-09-08 13:09 | Outpatient (CLI) | payer MEDICARE, SELFPAY ==
--- NOTE | 2023-09-08 08:30 | DI.US_ITS ---
Exam(s) US EXTREMITY VENOUS BI EXAM: US EXTREMITY VENOUS BI CLINICAL HISTORY: DVT, CHEST PAIN, R07.9, I82.409. TECHNIQUE: Bilateral lower extremity venous ultrasound performed using grayscale, color-flow, and sp ectral Doppler analysis. COMPARISON: US US EXTREMITY VENOUS BI from 02/14/2020 FINDINGS: The right common femoral, femoral and popliteal veins demonstrate normal compressibility, augmentatio n, and color Doppler. The posterior tibial veins are patent. The saphenofemoral junction is unremark able. There is no evidence of a Carvajal's cyst. There is mild edema in the soft tissues of the lower e xtremity. The left common femoral, femoral and popliteal veins demonstrate normal compressibility, augmentation , and color Doppler. The posterior tibial veins are patent. The saphenofemoral junction is unremarka ble. There is no evidence of a Carvajal's cyst. There is mild edema in the soft tissues of the lower ex tremity. IMPRESSION: 1. No evidence of a right lower extremity DVT. 2. No evidence of a left lower extremity DVT. DATA REPOSITORY:
== END ==
PROVIDERS: PCP Family Medicine; Visit Provider Podiatrist
DX: R07.9 Chest pain, unspecified
CPT/HCPCS: 93970

== ENCOUNTER → 2023-09-11 10:14 | Outpatient (BNVA) | payer MEDICARE, SELFPAY | PROVIDERS: PCP Family Medicine; Visit Provider Student in an Organized Health Care Education/Training Program | DX: Z47.1 Aftercare following joint replacement surgery (principal); Z96.642 Presence of left artificial hip joint ==

== ENCOUNTER → 2023-09-14 09:52 | Outpatient (BNVA) | payer MEDICARE, SELFPAY | PROVIDERS: PCP Family Medicine; Referring Provider Family Medicine; Visit Provider Psychiatry & Neurology Neurology | DX: R26.81 Unsteadiness on feet (principal); M54.42 Lumbago with sciatica, left side; G89.29 Other chronic pain; E11.42 Type 2 diabetes mellitus with diabetic polyneuropathy; E53.8 Deficiency of other specified B group vitamins; M21.371 Foot drop, right foot; M21.372 Foot drop, left foot; R20.0 Anesthesia of skin; L03.115 Cellulitis of right lower limb; M48.061 Spinal stenosis, lumbar region without neurogenic claudication; G25.81 Restless legs syndrome; I10 Essential (primary) hypertension | CPT/HCPCS: 99215 ==

== ENCOUNTER 2023-09-30 21:08 | Outpatient (REF) | payer MEDICARE, SELFPAY ==
[2023-09-30 15:44] LABS: Vitamin B12 698 pg/mL (193-986)
[2023-09-30 15:46] LABS: Folate > 20.0 ng/mL (8.6-20.0)
== END 2023-09-30 21:09 | disposition home or self-care (01) ==
LOC: NCHCN 21:08
PROVIDERS: PCP Family Medicine; Visit Provider Family Medicine
DX: N18.30 Chronic kidney disease, stage 3 unspecified (principal); I10 Essential (primary) hypertension
CPT/HCPCS: 82607; 82746

== ENCOUNTER → 2023-10-07 10:01 | Outpatient (BNVA) | payer MEDICARE, SELFPAY | PROVIDERS: PCP Family Medicine; Referring Provider Family Medicine; Visit Provider Podiatrist | DX: E11.621 Type 2 diabetes mellitus with foot ulcer (principal); L98.8 Other specified disorders of the skin and subcutaneous tissue; I83.029 Varicose veins of left lower extremity with ulcer of unspecified site; L97.921 Non-pressure chronic ulcer of unspecified part of left lower leg limited to breakdown of skin; L03.116 Cellulitis of left lower limb; I87.2 Venous insufficiency (chronic) (peripheral) | CPT/HCPCS: 29580; 99213; 29850 ==

== ENCOUNTER 2023-10-07 10:58 | Outpatient (REF) | payer MEDICARE, SELFPAY | END 2023-10-07 10:59 | disposition home or self-care (01) | LOC: LBN 10:58 | PROVIDERS: PCP Family Medicine; Visit Provider Podiatrist | DX: I87.2 Venous insufficiency (chronic) (peripheral) (principal); L98.499 Non-pressure chronic ulcer of skin of other sites with unspecified severity; I83.019 Varicose veins of right lower extremity with ulcer of unspecified site; I83.029 Varicose veins of left lower extremity with ulcer of unspecified site; L97.919 Non-pressure chronic ulcer of unspecified part of right lower leg with unspecified severity; L97.929 Non-pressure chronic ulcer of unspecified part of left lower leg with unspecified severity | CPT/HCPCS: 87077; 87070; 87075; 87186; 87205 ==

== ENCOUNTER → 2023-10-21 09:09 | Outpatient (BNVA) | payer MEDICARE, SELFPAY | PROVIDERS: PCP Family Medicine; Referring Provider Family Medicine; Visit Provider Podiatrist | DX: E11.621 Type 2 diabetes mellitus with foot ulcer (principal); L97.509 Non-pressure chronic ulcer of other part of unspecified foot with unspecified severity; I82.401 Acute embolism and thrombosis of unspecified deep veins of right lower extremity; I82.402 Acute embolism and thrombosis of unspecified deep veins of left lower extremity; E11.21 Type 2 diabetes mellitus with diabetic nephropathy; E11.40 Type 2 diabetes mellitus with diabetic neuropathy, unspecified | CPT/HCPCS: 99214 ==

== ENCOUNTER → 2023-11-05 08:51 | Outpatient (BNVA) | payer MEDICARE, SELFPAY | PROVIDERS: PCP Family Medicine; Referring Provider Family Medicine; Visit Provider Physical Therapy Assistant | DX: S81.802A Unspecified open wound, left lower leg, initial encounter (principal); W06.XXXA Fall from bed, initial encounter | CPT/HCPCS: 99213 ==

== ENCOUNTER → 2023-11-13 12:50 | Outpatient (BNVA) | payer MEDICARE, SELFPAY | PROVIDERS: PCP Family Medicine; Referring Provider Family Medicine; Visit Provider Physical Therapy Assistant | DX: S81.802D Unspecified open wound, left lower leg, subsequent encounter (principal); X58.XXXD Exposure to other specified factors, subsequent encounter | CPT/HCPCS: 99213 ==

== ENCOUNTER → 2023-11-16 09:35 | Outpatient (BNVA) | payer MEDICARE, SELFPAY | PROVIDERS: PCP Family Medicine; Visit Provider Psychiatry & Neurology Neurology | DX: M54.32 Sciatica, left side (principal); G89.29 Other chronic pain; E61.1 Iron deficiency; E11.40 Type 2 diabetes mellitus with diabetic neuropathy, unspecified; M21.371 Foot drop, right foot; M21.372 Foot drop, left foot; R20.0 Anesthesia of skin; L03.115 Cellulitis of right lower limb; M48.061 Spinal stenosis, lumbar region without neurogenic claudication; R26.81 Unsteadiness on feet; G25.81 Restless legs syndrome | CPT/HCPCS: 99214 ==

== ENCOUNTER → 2023-11-20 12:49 | Outpatient (BNVA) | payer MEDICARE, SELFPAY | PROVIDERS: PCP Family Medicine; Visit Provider Physical Therapy Assistant | DX: S81.802D Unspecified open wound, left lower leg, subsequent encounter (principal); X58.XXXD Exposure to other specified factors, subsequent encounter | CPT/HCPCS: 99213 ==

== ENCOUNTER → 2023-11-27 12:46 | Outpatient (BNVA) | payer MEDICARE, SELFPAY | PROVIDERS: PCP Family Medicine; Referring Provider Family Medicine; Visit Provider Physical Therapy Assistant | DX: Z51.89 Encounter for other specified aftercare (principal); I87.2 Venous insufficiency (chronic) (peripheral) | CPT/HCPCS: 29580 ==

== ENCOUNTER 2023-12-14 14:31 | Emergency (ER) | payer MEDICARE, SELFPAY ==
[2023-12-14 14:34] VITALS: BP 136/75; PULSE 52; RESP 18; TEMP 36.6; O2SAT 98
[2023-12-14 14:57] VITALS: BP 136/77; PULSE 60; RESP 16; O2SAT 95
--- NOTE | 2023-12-14 15:20 | W.ED.GENAD ---
HPI General Date/Time Provider Initiated Documentation: 12/14/23 14:37. HPI Narrative: 78 year-old male presents to ED today by POV/ambulating with his , with a chief complaint of draining foot blister, has chronic diabetes, has HomeHealth with onset noted this morning. Patient has appointment with ?Podiatry clinic tomorrow- poor historian. Quality described as some drainage of pus from a blister at the L lateral foot, no fever, no large fluctuant swelling, has chronic leg ulcerations, no radiation to tachycardia, chest pain, shortness of breath, weakness. Severity is described as mild. Palliating factors include nothing specific attempted beyond a bandaid. Provoking factors include nothing specific. Patient not anticoagulated. Related Data Home Medications Medication Instructions Recorded Confirmed losartan 100 mg tablet (Cozaar) 100 mg PO DAILY 11/01/13 11/27/23 empagliflozin 10 mg tablet 25 mg PO DAILY 05/22/18 11/27/23 (Jardiance) hydrochlorothiazide 50 mg tablet 50 mg PO DAILY #0 tab-caps 02/20/20 11/27/23 carvedilol 25 mg tablet 25 mg PO BID 01/16/21 11/27/23 lidocaine 5 % topical ointment 1 applic topical QHS 09/20/21 11/27/23 loperamide 2 mg capsule (Imodium 2 mg PO Q6H PRN 09/20/21 11/27/23 A-D) doxazosin 4 mg tablet (Cardura) 4 mg PO QPM 02/06/22 11/27/23 magnesium oxide 400 mg (241.3 mg 800 mg PO DAILY 07/21/22 11/27/23 magnesium) tablet apple cider vinegar 300 mg tablet 300 mg PO BID 07/29/22 11/27/23 vitamin B complex (B 1 tab PO DAILY 09/25/22 11/27/23 Complex-Vitamin B12 tablet) penicillin V potassium 500 mg 500 mg PO TID #273 tabs 12/25/22 11/27/23 tablet insulin glargine 100 unit/mL 25 unit subcut QHS 04/01/23 11/27/23 subcutaneous solution (Lantus U-100 Insulin) insulin lispro 100 unit/mL See Rx Instructions subcut 04/01/23 11/27/23 subcutaneous pen (Humalog KwikPen .SLIDING SCALE (U-100) Insulin) fluticasone propionate 50 1 spray intranasal DAILY 05/28/23 11/27/23 mcg/actuation nasal spray,suspension povidone-iodine 10 % topical 1 applic topical DAILY 07/02/23 11/27/23 solution (Betadine) disinfection of wound #118 mL urea 45 % topical gel (KEENAN-Urea) 1 applic topical BID #28 mL 07/16/23 11/27/23 acetaminophen 500 mg tablet 1,000 mg (2 x 500 mg) PO TID #90 07/29/23 11/27/23 tabs AFO #1 ea 08/10/23 11/27/23 triamcinolone acetonide 0.05 % 1 applic topical DAILY 08/19/23 11/27/23 topical ointment aspirin 81 mg tablet,delayed 81 mg PO DAILY 09/08/23 11/27/23 release pantoprazole 40 mg tablet,delayed 40 mg PO DAILY 09/23/23 11/27/23 release doxycycline hyclate 100 mg capsule 100 mg PO BID #28 caps 10/07/23 11/27/23 pregabalin 100 mg capsule 100 mg PO .COMPLEX #180 caps 11/16/23 11/27/23 pregabalin 200 mg capsule 200 mg PO QHS #90 caps 11/16/23 11/27/23 ropinirole 1 mg tablet See Rx Instructions PO .COMPLEX 11/16/23 11/27/23 #270 tabs doxycycline monohydrate 100 mg 100 mg PO BID diabetic foot 12/14/23 capsule infection 14 days #28 caps Previous Rx's Medication Instructions Recorded hydrochlorothiazide 50 mg tablet 50 mg PO DAILY #0 tab-caps 02/20/20 penicillin V potassium 500 mg 500 mg PO TID #273 tabs 12/25/22 tablet povidone-iodine 10 % topical 1 applic topical DAILY 07/02/23 solution (Betadine) disinfection of wound #118 mL urea 45 % topical gel (KEENAN-Urea) 1 applic topical BID #28 mL 07/16/23 acetaminophen 500 mg tablet 1,000 mg (2 x 500 mg) PO TID #90 07/29/23 tabs AFO #1 ea 08/10/23 doxycycline hyclate 100 mg capsule 100 mg PO BID #28 caps 10/07/23 pregabalin 100 mg capsule 100 mg PO .COMPLEX #180 caps 11/16/23 pregabalin 200 mg capsule 200 mg PO QHS #90 caps 11/16/23 ropinirole 1 mg tablet See Rx Instructions PO .COMPLEX 11/16/23 #270 tabs doxycycline monohydrate 100 mg 100 mg PO BID diabetic foot 12/14/23 capsule infection 14 days #28 caps Allergies Allergy/AdvReac Type Severity Reaction Status Date / Time amlodipine besylate AdvReac Mild edema Verified 12/15/23 14:17 [From Norvasc] enalapril maleate AdvReac Mild cough Verified 12/15/23 14:17 [From Vasotec] enalaprilat dihydrate AdvReac Mild cough Verified 12/15/23 14:17 [From Vasotec] pravastatin sodium AdvReac Mild myalgia Verified 12/15/23 14:17 [From Pravachol] from Lipitor rosuvastatin [From Crestor] AdvReac Mild Myalgia Verified 12/15/23 14:17 General Stated Complaint: Cellulitis TONG: 3 Review of Systems All systems reviewed & are unremarkable except as noted in HPI and below PFSH All Active Problems (Updated 12/14/23 @ 15:26 by JOURDAN Dailey) Diabetic foot ulcer (Acute) Restless leg syndrome (Acute) DVT (deep venous thrombosis) (Chronic) Venous ulcer-leg syndrome, bilateral (Acute) Onychogryphosis (Acute) Venous insufficiency of both lower extremities (Acute) Ulcer of right foot with fat layer exposed (Acute) Controlled type 2 diabetes mellitus with ulcer of toe (Acute) Atherosclerosis of [place] arteries of right leg with ulceration of ankle (Acute) Impacted cerumen, bilateral (Acute) Ulcer of extremity due to chronic venous insufficiency (Acute) Pneumonia (Acute) Nail dystrophy (Acute) Lumbar stenosis (Acute) Carpal tunnel syndrome of left wrist (Acute) Bilateral hand numbness (Acute) Foot drop, bilateral (Acute) Diabetic neuropathy (Acute) Left sided sciatica (Acute) Impairment of speech discrimination (Acute) Asymmetrical sensorineural hearing loss (Acute) Onychomycosis (Acute) DVT prophylaxis (Acute) Sepsis (Acute) Infection of total right knee replacement (Acute) S/p irrigation and debridement; poly exchange; arthrotomy repair DOS: 10/04/2021 Advance care planning (Acute) Bacteremia (Acute) Asymmetrical sensorineural hearing loss (Acute) History of total right knee replacement (Acute 01/16/21) First degree heart block (Acute) Discharge planning issues (Acute) DVT prophylaxis (Acute) Cellulitis (Acute) History of total left knee replacement (TKR) (Acute 12/14/19) Dr. Wilson s/p debridement and poly exchange 02/10/20 Renal insufficiency (Chronic) Hypertension (Chronic) Tubular adenoma of colon (Acute 09/02/16) Low blood magnesium (Acute 11/01/13) Tubulovillous adenoma polyp of colon (Chronic) Noted by colonoscopy. Chest pain, rule out acute myocardial infarction (Acute 11/01/13) Abnormal LFTs (Chronic) Secondary to fartty infiltrate of the liver. Diabetic renal disease (Chronic) Benign hypertension (Chronic) Obesity (Chronic) Benign prostatic hyperplasia (Chronic) Obstructive sleep apnea syndrome (Chronic) Nocturnal CPAP Hyperlipidemia (Chronic) Diabetes mellitus type 2 (Chronic) Since approximately 1997. On insulin thereapy. Last hemoglobin A1c 6.5% March 2013. 11-01-2013: Most recent hemoglobin A1c was 6.6 ? date. Medical History Paresthesias Fatty infiltration of liver Erectile dysfunction Foot drop Unsteady gait History of removal of joint prosthesis of right knee due to infection CKD (chronic kidney disease), stage III Microalbuminuria Diabetic polyneuropathy Morbid obesity Sleep apnea BPH (benign prostatic hyperplasia) Myalgia Perennial allergic rhinitis Vertigo Palliative care patient Hearing loss Chronic lower back pain Osteoarthritis Venous insufficiency Sleep apnea with use of continuous positive airway pressure (CPAP) History of seizures as a child Hx of myocardial infarction 10/2011 STRESS TEST COMPLETED 11/29/2019 Hyperlipidemia CAD (coronary artery disease) Cellulitis RIGHT LOWER LEG Diabetes Arthritis Surgical History History of total left hip arthroplasty (07/29/23) Carpal tunnel syndrome of right wrist S/P ECTR: 10/28/2022 H/O total knee replacement left knee 12/14/2019, right knee 01/16/2021 History of tonsillectomy and adenoidectomy H/O heart artery stent X2 2014 colonoscopy (09/02/16) Family History Maternal Aunt Colon cancer Maternal Aunt Colon cancer Father , 70s Heart disease Mother Lung cancer Brother Liver failure Son , tractor accident Accident caused by farm tractor Social History Smoking/Tobacco Use Status: Never Smoking risk assessment performed?: Yes Alcohol Intake: never Drug use: Never Substance use type: does not use Housing: house Do you feel safe at home: Yes Do you feel safe in your relationship?: Yes Additional Social history: unable to assess to privately Exam Narrative Exam Narrative: GENERAL APPEARANCE: Well-nourished, non-toxic, awake and alert, atraumatic, no acute distress. SKIN: Warm, pink, dry, intact, without rashes/lesions/ulcerations. L Foot: 1cm blister to the left lateral midfoot with a small draining ulceration on the lateral edge of the foot at this location with purulent material, there is no large fluctuant abscess, no spreading erythema out from the region, no lymphadenitis, the patient has diffusely chronic leg wounds above the injury, has intact pedal pulse and sensation is intact HEAD: Normocephalic, atraumatic, normal hair distribution for gender/age. EYES: Pupils PERRLA, EOMs intact without nystagmus, normal conjunctiva, no exudates on lids/lashes. ENT: Nares patent, no circumoral cyanosis, no facial swelling NECK: Supple, trachea midline, painless cervical ROM. LUNGS/CHEST: Non-labored respirations, normal A/P diameter, symmetrical expansion, no chest wall deformity HEART (CV/PV): Regular rate, L dorsalis pedis pulse 2+, no peripheral edema, no JVD. ABDOMEN: Soft, non-distended, no guarding. MSK: Normal ROM, no swelling/deformity to bilateral UEs or LEs, moving all extremities without weakness, no cyanosis, spine midline without tenderness, normal curvature. NEURO: Mental Status AAOx4 - alert to person, place, time, events No facial droop, no forehead involvement. Motor: No focal weakness - strength 5/5 in bilateral UEs and LEs, proximal and distal, symmetric. Sensory: sensation intact to light touch globally. Gait normal: patient ambulated without ataxia into ED room. PSYCH: euthymic, cooperative, pleasant, appropriate speech Course Vital Signs Vital signs: Vital Signs Temperature 36.6 C 12/14/23 14:34 Pulse 52 L 12/14/23 14:34 Respiratory Rate 18 12/14/23 14:34 Blood Pressure 136/75 12/14/23 14:34 Pulse Oximetry 98 12/14/23 14:34 Temperature 36.6 C 12/14/23 14:34 Temperature Source Temporal Artery Scan 12/14/23 14:34 Pulse 60 12/14/23 14:57 Respiratory Rate 16 12/14/23 14:57 Respiratory Effort Normal, Non-Labored 12/14/23 14:40 Blood Pressure 136/77 12/14/23 14:57 Blood Pressure Position Supine 12/14/23 14:57 Pulse Oximetry 95 12/14/23 14:57 Oxygen Delivery Method Room Air 12/14/23 14:57 Oxygen Flow Rate 0 12/14/23 14:34 Medical Decision Making This dictation utilizes [id number] dictation software and may contain unedited grammatical errors. 78 y/o M presents to ED today with a chief complaint of leaking diabetic foot wound that started as a blister. Patient has a podiatry appointment tomorrow, wound is actively draining, there is no signs of fever he is chronically ulcerated legs from his chronic diabetes. Patients' medical history: Paresthesias, CKD, diabetic polyneuropathy, morbid obesity, venous insufficiency, CAD, history of DC, restless leg, history of DVT, venous leg ulcers, cellulitis. Family and social history: noncontributory. Pertinent exam findings / vital signs include L Foot: 1cm blister to the left lateral midfoot with a small draining ulceration on the lateral edge of the foot at this location with purulent material, there is no large fluctuant abscess, no spreading erythema out from the region, no lymphadenitis, the patient has diffusely chronic leg wounds above the injury, has intact pedal pulse and sensation is intact. Differential / pathologies of concern include cellulitis, diabetic foot wound, not abscess. Diagnostic studies of: -none. Interventions of: -Xeroform antibiotic dressing, recommend continuing to help the wound drain, follow with Wound / Podiatry tomorrow. ED Course/Assessment/Plan: 78-year-old male with chronic venous ulcers and diabetic neuropathy presents with a draining small foot wound from a blister on the left lateral foot, I recommend he continue to encourage the foot to drain there is no signs of large abscess, he has a follow-up appointment tomorrow, I advised that he should seek referral to an actual wound care clinic for management of likely future diabetic foot wounds. Started doxycycline for antibiotic prophylaxis to cover for MRSA due to the purulent nature of the pus draining from the wound. Findings not consistent with abscess, neurovascular compromise, lymphadenitis spreading up the leg. Disposition of diabetic foot ulcer. Patient verbalized understanding of the plan and return to ED criteria and engaged in shared decision making. Medical Records Medical records reviewed: Yes I reviewed the patient's medical records. Quality:[facility] Health Related Social Needs: No Data to Display Discharge Plan Disposition Patient Disposition: Home Condition: Stable Discharge Details Clinical Impression: Diabetic foot ulcer Primary Care Provider: Cameron Mcarthur ED Provider: Reymundo Magallanes Home Meds and New Rx's Prescriptions: New doxycycline monohydrate 100 mg capsule 100 mg PO BID 14 Days Qty: 28 0RF Continued loperamide [Imodium A-D] 2 mg capsule 2 mg PO Q6H PRN lidocaine 5 % ointment 1 applic topical QHS magnesium oxide 400 mg (241.3 mg magnesium) tablet 800 mg PO DAILY insulin glargine [Lantus U-100 Insulin] 100 unit/mL solution 25 unit subcut QHS Patient Comments: pt. took 25 units vitamin B complex [B Complex-Vitamin B12] Tablet 1 tab PO DAILY aspirin 81 mg tablet,delayed release (DR/EC) 81 mg PO DAILY pantoprazole 40 mg tablet,delayed release (DR/EC) 40 mg PO DAILY ropinirole 1 mg tablet See Rx Instructions PO .COMPLEX Qty: 270 3RF Rx Instructions: Take 1mg at noon and 2mg at 6pm; pregabalin 200 mg capsule 200 mg PO QHS Qty: 90 3RF pregabalin 100 mg capsule 100 mg PO .COMPLEX Qty: 180 3RF Rx Instructions: 100 mg orally daily in am with an extra 100mg at noon prn neuropathy pain; apple cider vinegar 300 mg tablet 300 mg PO BID fluticasone propionate 50 mcg/actuation spray,suspension 1 spray intranasal DAILY Rx Instructions: administer into each nostril povidone-iodine [Betadine] 10 % solution 1 applic topical DAILY Qty: 118 0RF urea [KEENAN-Urea] 45 % gel 1 applic topical BID Qty: 28 3RF Patient Comments: pt hasnt started using yet Rx Instructions: Apply to toenails twice a day triamcinolone acetonide 0.05 % ointment 1 applic topical DAILY doxycycline hyclate 100 mg capsule 100 mg PO BID Qty: 28 0RF doxazosin [Cardura] 4 mg tablet 4 mg PO QPM penicillin V potassium 500 mg tablet 500 mg PO TID Qty: 273 3RF Rx Instructions: take 1 tablet by mouth three times daily (DME) AFO custom See Rx Instructions .Route .MEDSUPPLY Qty: 1 0RF Rx Instructions: As directed losartan [Cozaar] 100 MG tablet 100 mg PO DAILY insulin lispro [Humalog KwikPen Insulin] 100 unit/mL insulin pen See Rx Instructions subcut .SLIDING SCALE Patient Comments: pt. reports taking 15 units Rx Instructions: subcutaneously SLIDING SCALE; bolus range of 15-25u at 2 meals a day (SQ SLIDING SCALE); Jardiance 10 MG tablet 25 mg PO DAILY acetaminophen 500 mg tablet 1,000 mg PO TID Qty: 90 3RF hydrochlorothiazide 50 MG tablet 50 mg PO DAILY Qty: 0 0RF carvedilol 25 mg tablet 25 mg PO BID Discharge Instructions Instructions: Diabetic Foot Ulcers (ED) Additional Instructions: You were seen in the emergency department for your diabetic foot ulcer. You need to follow-up with the project control officer or wound care for this, there is an open lesion that is draining pus and we have wrapped it in a specialized antibiotic dressing and I have sent the antibiotic doxycycline to your pharmacy. Please seek wound care consult for instruction on dressing these wounds daily, you may try an Epsom salt soak after your appointment tomorrow if directed 2. Please return for any severe increase in fever, severe increase in leg pain, inability to bear weight. Referrals: Cameron Mcarthur MD [Primary Care Provider] - Discharge Data Discharge Date/Time-TO BE ENTERED AT DEPARTURE: 12/14/23 15:46
[2023-12-14 15:37] VITALS: BP 135/70; PULSE 63; RESP 18; O2SAT 100
== END 2023-12-14 15:46 | disposition home or self-care (01) ==
PROVIDERS: Emergency Provider Physician Assistant; PCP Family Medicine
DX: M79.672 Pain in left foot (principal); E11.621 Type 2 diabetes mellitus with foot ulcer; E66.9 Obesity, unspecified; I87.2 Venous insufficiency (chronic) (peripheral)
CPT/HCPCS: 99283

== ENCOUNTER → 2023-12-15 13:38 | Outpatient (BNVA) | payer MEDICARE, SELFPAY | PROVIDERS: PCP Family Medicine; Referring Provider Family Medicine; Visit Provider Physical Therapy Assistant | DX: Z51.89 Encounter for other specified aftercare (principal); E11.621 Type 2 diabetes mellitus with foot ulcer | CPT/HCPCS: 99213 ==

== ENCOUNTER 2023-12-21 21:51 | Outpatient (REF) | payer MEDICARE, SELFPAY ==
[2023-12-21 22:45] LABS: Ferritin 57 ng/mL (26-388)
== END 2023-12-21 21:52 | disposition home or self-care (01) ==
LOC: NCHCN 21:51
PROVIDERS: PCP Family Medicine; Visit Provider Family Medicine
DX: E11.69 Type 2 diabetes mellitus with other specified complication (principal); I87.2 Venous insufficiency (chronic) (peripheral)
CPT/HCPCS: 82728

== ENCOUNTER → 2023-12-30 11:24 | Outpatient (BNVA) | payer MEDICARE, SELFPAY | PROVIDERS: PCP Family Medicine; Referring Provider Family Medicine; Visit Provider Podiatrist | DX: M86.9 Osteomyelitis, unspecified | CPT/HCPCS: 97597; 97598 ==

== ENCOUNTER 2023-12-30 13:15 | Outpatient (REF) | payer MEDICARE, SELFPAY | END 2023-12-30 13:16 | disposition home or self-care (01) | LOC: LBN 13:15 | PROVIDERS: PCP Family Medicine; Visit Provider Podiatrist | DX: E11.621 Type 2 diabetes mellitus with foot ulcer (principal); M86.9 Osteomyelitis, unspecified | CPT/HCPCS: 87077; 87070; 87075; 87186; 87205 ==

== ENCOUNTER → 2023-12-30 14:09 | Outpatient (CLI) | payer MEDICARE, SELFPAY ==
--- NOTE | 2023-12-30 13:16 | DI.RAD_ITS ---
Exam(s) XR FOOT LT COMPLETE EXAM: XR FOOT LT COMPLETE CLINICAL HISTORY: Osteomyelitis fifth metatarsal base, left foot,M86.9. TECHNIQUE: 2D digital imaging was performed of the left foot. Three images were obtained. AP, obli que and lateral views were obtained. COMPARISON: No exams were available for comparison FINDINGS: BONES: No acute fracture is present. No bony destructive lesion is seen. There are cysts seen in the bases of both the 4th and 5th metatarsals. JOINTS: No dislocation present. SOFT TISSUE: Normal. IMPRESSION: 1. No destructive changes are seen to suggest osteomyelitis. An MRI may be obtained for further eval uation 2. Subchondral cysts are seen in the base of the 4th and 5th metatarsals. DATA REPOSITORY: RADIATION DOSE DELIVERED:
== END ==
PROVIDERS: PCP Family Medicine; Visit Provider Podiatrist
DX: M86.8X8 Other osteomyelitis, other site (principal)
CPT/HCPCS: 11042; 73630

== ENCOUNTER → 2024-01-05 12:56 | Outpatient (BNVA) | payer MEDICARE, SELFPAY | PROVIDERS: PCP Family Medicine; Referring Provider Family Medicine; Visit Provider Podiatrist | DX: L97.522 Non-pressure chronic ulcer of other part of left foot with fat layer exposed; L03.90 Cellulitis, unspecified; E11.621 Type 2 diabetes mellitus with foot ulcer; I83.019 Varicose veins of right lower extremity with ulcer of unspecified site; I83.029 Varicose veins of left lower extremity with ulcer of unspecified site; L97.929 Non-pressure chronic ulcer of unspecified part of left lower leg with unspecified severity; L97.919 Non-pressure chronic ulcer of unspecified part of right lower leg with unspecified severity; E11.9 Type 2 diabetes mellitus without complications | CPT/HCPCS: 97597 ==

== ENCOUNTER → 2024-01-12 08:20 | Outpatient (BNVA) | payer MEDICARE, SELFPAY | PROVIDERS: PCP Family Medicine; Referring Provider Family Medicine; Visit Provider Podiatrist | DX: L97.522 Non-pressure chronic ulcer of other part of left foot with fat layer exposed; L03.90 Cellulitis, unspecified; E11.621 Type 2 diabetes mellitus with foot ulcer; I83.019 Varicose veins of right lower extremity with ulcer of unspecified site; I83.029 Varicose veins of left lower extremity with ulcer of unspecified site; L97.929 Non-pressure chronic ulcer of unspecified part of left lower leg with unspecified severity; L97.919 Non-pressure chronic ulcer of unspecified part of right lower leg with unspecified severity; E11.9 Type 2 diabetes mellitus without complications | CPT/HCPCS: 11042; 97597 ==

== ENCOUNTER 2024-01-13 16:32 | Outpatient (REF) | payer MEDICARE, SELFPAY ==
[2024-01-13 21:27] LABS: LDL CHOLESTEROL 83 mg/dL (<100)
[2024-01-13 21:37] LABS: Hemoglobin A1C 5.9 % (<5.7)
== END 2024-01-13 16:33 | disposition home or self-care (01) ==
LOC: NCHCN 16:32
PROVIDERS: PCP Family Medicine; Visit Provider Family Medicine
DX: E78.5 Hyperlipidemia, unspecified (principal); E11.9 Type 2 diabetes mellitus without complications
CPT/HCPCS: 83721; 83036

== ENCOUNTER → 2024-01-15 00:50 | Outpatient (CLI) | payer MEDICARE, SELFPAY ==
--- NOTE | 2024-01-15 07:45 | DI.MRI_ITS ---
Exam(s) MR LOWER EXTREMITY LT WO/W CLINICAL HISTORY: Osteomyelitis fifth metatarsal base,m86.9,foot ulcer,L97.772. TECHNIQUE: Multiplanar multisequence MRI was performed. CONTRAST MATERIAL: IV Contrast: 20 mL of Dotarem contrast administered. COMPARISON: Plain films December 23 FINDINGS: the exam is limited by motion. Exam is also limited by lack of fat suppressed T1 axial and coronal sequences post gadolinium. BONES/JOINTS: There is edema within proximal 2/3 of the 5th metatarsal. A cystic area is also noted at the medial base of the 5th metatarsal. Cystic areas also is noted the base of the 4th metatarsal, consistent with degenerative subchondral cysts. LIGAMENTS: The tibiofibular, deltoid and calcaneofibular ligaments are intact. The syndesmosis is unr emarkable. Sinus tarsi is normal. MUSCULOTENDINOUS STRUCTURES: Achilles tendon is intact. The planar fascia is unremarkable. The medial flexor, anterior extensor, and peroneal tendons are intact. SOFT TISSUES: Linear metallic foreign body noted on plain films at lateral to the cuboid create creat es significant artifact. This partially obscures the lateral aspect of the cuboid. Metallic artifac t also seen at the plantar soft tissues at the level of the 1st metatarsal head. A small soft tissue wound is seen in the subcutaneous tissues at the lateral aspect of the foot at th e level of the base of the 5th metatarsal. There postcontrast enhancement in this area. No drainabl e abscess. IMPRESSION: Findings suspicious for osteomyelitis of the proximal half of the 5th metatarsal. DATA REPOSITORY:
[2024-01-15 13:00] LABS: ESR 11 mm/hr (0-20)
[2024-01-15 13:01] LABS: Abs Immature Grans 0.02 10^3/uL (0.0-0.06); Absolute Basophil Count 0.02 10^3/uL (0.0-0.2); Absolute Eosinophil Count 0.15 10^3/uL (0.0-0.7); Absolute Lymphocyte Count 0.48 10^3/uL (1.2-3.4); Absolute Monocyte Count 0.38 10^3/uL (0.1-0.8); Absolute Neutrophil Count 4.37 10^3/uL (1.2-6.7); Basophils % 0.4; Eosinophils % 2.8; HCT 36.5 % (40.0-50.0); HGB 11.2 g/dL (13.5-17.5); Immature Grans % 0.4; Lymphocytes % 8.9; MCH 23.9 pg (27.0-33.0); MCHC 30.7 % (32.0-36.0); MCV 78 fL (80-95); MPV 9.5 fL (8.0-11.0); Neutrophils % 80.5; Platelet Count 145 10^3/uL (130-400); RBC 4.68 10^6/uL (4.36-5.78); RDW 18.4 % (11.8-14.1); RDW-SD 51.5 fL; WBC 5.42 10^3/uL (4.4-10.8)
[2024-01-15 13:49] LABS: CREATININE 1.6 mg/dL (0.70-1.30); Estimated GFR 43.02 (mL/min/1.73m2); Ferritin 65 ng/mL (26-388)
[2024-01-15] MEDS: Normal Saline Flush 10 ML SYR IVP (13:53)
[2024-01-15] MEDS: Gadoterate meglumine 20 ML SYRINGE IVP (13:53)
== END ==
PROVIDERS: Psychiatry & Neurology Neurology; PCP Family Medicine; Visit Provider Podiatrist
DX: I73.9 Peripheral vascular disease, unspecified (principal); E61.1 Iron deficiency; R22.42 Localized swelling, mass and lump, left lower limb
CPT/HCPCS: 85652; 73720; 82565; 82728; 85025; 86140

== ENCOUNTER → 2024-01-18 08:16 | Outpatient (BNVA) | payer MEDICARE, SELFPAY | PROVIDERS: PCP Family Medicine; Visit Provider Psychiatry & Neurology Neurology | DX: M54.32 Sciatica, left side (principal); G89.29 Other chronic pain; E11.40 Type 2 diabetes mellitus with diabetic neuropathy, unspecified; M21.371 Foot drop, right foot; M21.372 Foot drop, left foot; R20.0 Anesthesia of skin; L03.115 Cellulitis of right lower limb; M48.061 Spinal stenosis, lumbar region without neurogenic claudication; R26.81 Unsteadiness on feet; G25.81 Restless legs syndrome; E61.1 Iron deficiency | CPT/HCPCS: 99214 ==

== ENCOUNTER → 2024-01-20 09:57 | Outpatient (BNVA) | payer MEDICARE, SELFPAY | PROVIDERS: PCP Family Medicine; Referring Provider Podiatrist; Visit Provider Podiatrist | DX: I70.203 Unspecified atherosclerosis of native arteries of extremities, bilateral legs (principal); I70.25 Atherosclerosis of native arteries of other extremities with ulceration; L03.115 Cellulitis of right lower limb | CPT/HCPCS: 93922; 99024 ==

== ENCOUNTER 2024-01-21 01:08 | Outpatient (RCR) | payer MEDICARE, SELFPAY ==
[2024-01-21] MEDS: Normal Saline Flush 10 ML SYR IVP (09:34)
[2024-01-21] MEDS: IRON SUCROSE COMPLEX 200 MG in Normal Saline 100 ML 440 MG IVPB (09:40)
== END 2024-01-28 23:59 | disposition home or self-care (01) ==
LOC: INF 01:08
PROVIDERS: PCP Family Medicine; Visit Provider Psychiatry & Neurology Neurology
DX: D50.9 Iron deficiency anemia, unspecified (principal)
CPT/HCPCS: 96365; J1756

== ENCOUNTER → 2024-01-26 09:19 | Outpatient (BNVA) | payer MEDICARE, SELFPAY | PROVIDERS: PCP Family Medicine; Referring Provider Family Medicine; Visit Provider Podiatrist | DX: L97.522 Non-pressure chronic ulcer of other part of left foot with fat layer exposed; I70.244 Atherosclerosis of native arteries of left leg with ulceration of heel and midfoot; L03.90 Cellulitis, unspecified; E11.621 Type 2 diabetes mellitus with foot ulcer; I83.019 Varicose veins of right lower extremity with ulcer of unspecified site; I83.029 Varicose veins of left lower extremity with ulcer of unspecified site; M86.9 Osteomyelitis, unspecified; R20.2 Paresthesia of skin | CPT/HCPCS: 97597; 99214 ==

== ENCOUNTER → 2024-01-26 10:49 | Outpatient (CLI) | payer MEDICARE, SELFPAY ==
--- NOTE | 2024-01-26 10:00 | DI.RAD_ITS ---
Exam(s) XR FOOT LT COMPLETE EXAM: XR FOOT LT COMPLETE CLINICAL HISTORY: Assess progression OM 5th met base, ulcer lt foot, L97.522, osteomyelitis,. TECHNIQUE: 2D digital imaging was performed. Three views. COMPARISON: CR XR FOOT LT COMPLETE from 12/30/2023 MR MR LOWER EXTREMITY LT WO/W from 01/15/2024 FINDINGS: The bony detail is obscured by overlying gauze. There has been no gross interval change. DATA REPOSITORY: RADIATION DOSE DELIVERED:
== END ==
PROVIDERS: PCP Family Medicine; Visit Provider Podiatrist
DX: L97.522 Non-pressure chronic ulcer of other part of left foot with fat layer exposed (principal); M86.9 Osteomyelitis, unspecified
CPT/HCPCS: 73630

== ENCOUNTER 2024-02-03 12:28 | Inpatient (IN) | payer MEDICARE, SELFPAY ==
[2024-02-03 12:32] VITALS: BP 116/65; PULSE 82; RESP 18; TEMP 36.5; O2SAT 97
--- NOTE | 2024-02-03 12:59 | W.ED.GENAD ---
Discharge Plan Disposition Patient Disposition: Admit to [facility] Condition: Stable Discharge Details Chief Complaint: Cellulitis Clinical Impression: Diabetic foot infection Primary Care Provider: Cameron Mcarthur ED Provider: Salazar Foley [place] Meds and New Rx's Prescriptions: No Action loperamide [Imodium A-D] 2 mg capsule 2 mg PO Q6H PRN lidocaine 5 % ointment 1 applic topical QHS magnesium oxide 400 mg (241.3 mg magnesium) tablet 800 mg PO DAILY insulin glargine [Lantus U-100 Insulin] 100 unit/mL solution 25 unit subcut QHS Patient Comments: pt. took 25 units vitamin B complex [B Complex-Vitamin B12] Tablet 1 tab PO DAILY aspirin 81 mg tablet,delayed release (DR/EC) 81 mg PO DAILY pantoprazole 40 mg tablet,delayed release (DR/EC) 40 mg PO DAILY ropinirole 1 mg tablet See Rx Instructions PO .COMPLEX Qty: 270 3RF Rx Instructions: Take 1mg at noon and 2mg at 6pm; pregabalin 200 mg capsule 200 mg PO QHS Qty: 90 3RF pregabalin 100 mg capsule 100 mg PO .COMPLEX Qty: 180 3RF Rx Instructions: 100 mg orally daily in am with an extra 100mg at noon prn neuropathy pain; ketoconazole 2 % cream 1 applic topical DAILY Jardiance 25 mg tablet 25 mg PO DAILY Santyl 250 unit/gram ointment 1 applic topical DAILY Qty: 90 0RF apple cider vinegar 300 mg tablet 300 mg PO BID fluticasone propionate 50 mcg/actuation spray,suspension 1 spray intranasal DAILY Rx Instructions: administer into each nostril povidone-iodine [Betadine] 10 % solution 1 applic topical DAILY Qty: 118 0RF urea [KEENAN-Urea] 45 % gel 1 applic topical BID Qty: 28 3RF Patient Comments: pt hasnt started using yet Rx Instructions: Apply to toenails twice a day triamcinolone acetonide 0.05 % ointment 1 applic topical DAILY doxycycline hyclate 100 mg capsule 100 mg PO BID Qty: 28 0RF doxazosin [Cardura] 4 mg tablet 4 mg PO QPM penicillin V potassium 500 mg tablet 500 mg PO TID Qty: 273 3RF Rx Instructions: take 1 tablet by mouth three times daily (DME) AFO custom See Rx Instructions .Route .MEDSUPPLY Qty: 1 0RF Rx Instructions: As directed ciprofloxacin HCl 500 mg tablet 500 mg PO BID 14 Days Qty: 28 0RF amoxicillin-pot clavulanate [Augmentin] 500-125 mg tablet 1 tab PO BID 14 Days Qty: 28 0RF losartan [Cozaar] 100 MG tablet 100 mg PO DAILY insulin lispro [Humalog KwikPen Insulin] 100 unit/mL insulin pen See Rx Instructions subcut .SLIDING SCALE Patient Comments: pt. reports taking 15 units Rx Instructions: subcutaneously SLIDING SCALE; bolus range of 15-25u at 2 meals a day (SQ SLIDING SCALE); acetaminophen 500 mg tablet 1,000 mg PO TID Qty: 90 3RF hydrochlorothiazide 50 MG tablet 50 mg PO DAILY Qty: 0 0RF carvedilol 25 mg tablet 25 mg PO BID HPI General Date/Time Provider Initiated Documentation: 02/03/24 12:36. Limitations to Documentation: no limitations. Information obtained by: patient. History of Present Illness 79 year old M presents to the emergency department with the chief complaint of Foot wound, Patient started experiencing this month(s) (1) and it has been constant. No relieving factors improve symptom(s), No exacerbating factors reported . Patient notes no other symptoms.. Patient did receive the following treatments prior to arrival, none Related Data Home Medications Medication Instructions Recorded Confirmed losartan 100 mg tablet (Cozaar) 100 mg PO DAILY 11/01/13 01/26/24 hydrochlorothiazide 50 mg tablet 50 mg PO DAILY #0 tab-caps 02/20/20 01/26/24 carvedilol 25 mg tablet 25 mg PO BID 01/16/21 01/26/24 lidocaine 5 % topical ointment 1 applic topical QHS 09/20/21 01/26/24 loperamide 2 mg capsule (Imodium 2 mg PO Q6H PRN 09/20/21 01/26/24 A-D) doxazosin 4 mg tablet (Cardura) 4 mg PO QPM 02/06/22 01/26/24 magnesium oxide 400 mg (241.3 mg 800 mg PO DAILY 07/21/22 01/26/24 magnesium) tablet apple cider vinegar 300 mg tablet 300 mg PO BID 07/29/22 01/26/24 vitamin B complex (B 1 tab PO DAILY 09/25/22 01/26/24 Complex-Vitamin B12 tablet) penicillin V potassium 500 mg 500 mg PO TID #273 tabs 12/25/22 01/26/24 tablet insulin glargine 100 unit/mL 25 unit subcut QHS 04/01/23 01/26/24 subcutaneous solution (Lantus U-100 Insulin) insulin lispro 100 unit/mL See Rx Instructions subcut 04/01/23 01/26/24 subcutaneous pen (Humalog KwikPen .SLIDING SCALE (U-100) Insulin) fluticasone propionate 50 1 spray intranasal DAILY 05/28/23 01/26/24 mcg/actuation nasal spray,suspension povidone-iodine 10 % topical 1 applic topical DAILY 07/02/23 01/26/24 solution (Betadine) disinfection of wound #118 mL urea 45 % topical gel (KEENAN-Urea) 1 applic topical BID #28 mL 07/16/23 01/26/24 acetaminophen 500 mg tablet 1,000 mg (2 x 500 mg) PO TID #90 07/29/23 01/26/24 tabs AFO #1 ea 08/10/23 01/26/24 triamcinolone acetonide 0.05 % 1 applic topical DAILY 08/19/23 01/26/24 topical ointment aspirin 81 mg tablet,delayed 81 mg PO DAILY 09/08/23 01/26/24 release pantoprazole 40 mg tablet,delayed 40 mg PO DAILY 09/23/23 01/26/24 release pregabalin 100 mg capsule 100 mg PO .COMPLEX #180 caps 11/16/23 01/26/24 pregabalin 200 mg capsule 200 mg PO QHS #90 caps 11/16/23 01/26/24 ropinirole 1 mg tablet See Rx Instructions PO .COMPLEX 11/16/23 01/26/24 #270 tabs empagliflozin 25 mg tablet 25 mg PO DAILY 12/25/23 01/26/24 (Jardiance) ketoconazole 2 % topical cream 1 applic topical DAILY 12/25/23 01/26/24 collagenase clostridium histo. 250 1 applic topical DAILY #90 grams 01/12/24 01/26/24 unit/gram topical ointment (Santyl) doxycycline hyclate 100 mg capsule 100 mg PO BID #28 caps 01/20/24 01/26/24 amoxicillin 500 mg-potassium 1 tab PO BID 14 days #28 tabs 01/28/24 clavulanate 125 mg tablet (Augmentin) ciprofloxacin HCl 500 mg tablet 500 mg PO BID 14 days #28 tabs 01/28/24 Previous Rx's Medication Instructions Recorded hydrochlorothiazide 50 mg tablet 50 mg PO DAILY #0 tab-caps 02/20/20 penicillin V potassium 500 mg 500 mg PO TID #273 tabs 12/25/22 tablet povidone-iodine 10 % topical 1 applic topical DAILY 07/02/23 solution (Betadine) disinfection of wound #118 mL urea 45 % topical gel (KEENAN-Urea) 1 applic topical BID #28 mL 07/16/23 acetaminophen 500 mg tablet 1,000 mg (2 x 500 mg) PO TID #90 07/29/23 tabs AFO #1 ea 08/10/23 pregabalin 100 mg capsule 100 mg PO .COMPLEX #180 caps 11/16/23 pregabalin 200 mg capsule 200 mg PO QHS #90 caps 11/16/23 ropinirole 1 mg tablet See Rx Instructions PO .COMPLEX 11/16/23 #270 tabs collagenase clostridium histo. 250 1 applic topical DAILY #90 grams 01/12/24 unit/gram topical ointment (Santyl) doxycycline hyclate 100 mg capsule 100 mg PO BID #28 caps 01/20/24 amoxicillin 500 mg-potassium 1 tab PO BID 14 days #28 tabs 01/28/24 clavulanate 125 mg tablet (Augmentin) ciprofloxacin HCl 500 mg tablet 500 mg PO BID 14 days #28 tabs 01/28/24 Allergies Allergy/AdvReac Type Severity Reaction Status Date / Time amlodipine besylate AdvReac Mild edema Verified 02/03/24 12:43 [From Norvasc] enalapril maleate AdvReac Mild cough Verified 02/03/24 12:43 [From Vasotec] enalaprilat dihydrate AdvReac Mild cough Verified 02/03/24 12:43 [From Vasotec] pravastatin sodium AdvReac Mild myalgia Verified 02/03/24 12:43 [From Pravachol] from Lipitor rosuvastatin [From Crestor] AdvReac Mild Myalgia Verified 02/03/24 12:43 General Stated Complaint: Cellulitis TONG: 3 Review of Systems All systems reviewed & are unremarkable except as noted in HPI and below Constitutional Constitutional: Denies chills, Denies fever(s) and Denies weakness Cardiovascular Cardiovascular: Denies chest pain and Denies dyspnea Respiratory Respiratory: Denies cough and Denies dyspnea Gastrointestinal Gastrointestinal: Denies abdominal pain, Denies nausea and Denies vomiting Neurologic Neurologic: Denies weakness Exam Const General: no acute distress Orientation: alert HENDC Head: normal to inspection Ears: external ears normal General nose exam: external nose normal Mouth: moist mucous membranes Eyes General: appearance normal, both eyes and all related structures Neck Neck: normal visual inspection Resp Effort & Inspection: normal respiratory effort and able to speak in complete sentences Cardio Rate: regular rate Neuro General: patient alert and patient oriented x3 Extrem General: no cyanosis Psych Mental Status: mental status grossly normal Course Vital Signs Vital signs: Vital Signs Temperature 36.5 C 02/03/24 12:32 Pulse 82 02/03/24 12:32 Respiratory Rate 18 02/03/24 12:32 Blood Pressure 116/65 02/03/24 12:32 Pulse Oximetry 97 02/03/24 12:32 Temperature 36.5 C 02/03/24 12:32 Temperature Source Skin 02/03/24 12:32 Pulse 82 02/03/24 12:32 Respiratory Rate 18 02/03/24 12:32 Respiratory Effort Normal, Non-Labored 02/03/24 12:42 Blood Pressure 116/65 02/03/24 12:32 Blood Pressure Position Sitting 02/03/24 12:32 Pulse Oximetry 97 02/03/24 12:32 Oxygen Delivery Method Room Air 02/03/24 12:32 Oxygen Flow Rate 0 02/03/24 12:32 Pain Level 3 02/03/24 12:32 Lab/Test Results Lab/Test Results: 02/03/24 12:38 Blood Blood Culture - Pending 02/03/24 12:38 Blood Blood Culture - Pending Medical Decision Making 79-year-old male with history of diabetes and chronic left foot wound comes in with plan for likely admission for IV antibiotics. He has been seeing podiatry and also has had consults with infectious disease at [facility]. Received a call from Dr. Brooke Taveras from infectious disease at [facility], states the patient has been on oral antibiotics and despite this his wound is worsening on his left foot. She recommended that he come in for admission IV antibiotics and possibly a surgical procedure depending on imaging with her to CT or MRI. She recommended that the patient be started on cefepime 2 g every 12 hours daptomycin 750 mg daily and then oral metronidazole 500 mg 3 times daily. Patient arrives stable alert and oriented answering questions appropriately. He has a approximately 3 cm ulcerated wound on the left lateral plantar surface of his foot with surrounding erythema. No severe pain or crepitus. He states he finished doxycycline yesterday was prescribed Augmentin but was told not to start it and instead come here. No fevers, appears well so doubt sepsis. Will obtain labs and consult with podiatry, will likely need admission for IV antibiotics and possible surgical intervention spoke with Dr. Li from podiatry, will plan to consult along with hospitalist, does feel MRI should be obtained so this was ordered. Will discuss with hospitalist about admission for iv antibiotics Differential Diagnosis Differential Diagnosis: Diabetic foot infection, osteomyelitis Lab Data Lab results reviewed: Yes I reviewed the patient's lab results. Quality:SDOH Health Related Social Needs: No Data to Display PFSH All Active Problems (Updated 02/03/24 @ 14:34 by Salazar Foley MD) Diabetic foot infection (Acute) Atherosclerosis of lower extremity with ulceration (Acute) Atherosclerosis of artery of both lower extremities (Acute) Ulcer of left foot with fat layer exposed (Acute) Osteomyelitis of left foot (Acute) Restless leg syndrome (Acute) DVT (deep venous thrombosis) (Chronic) Venous ulcer-leg syndrome, bilateral (Acute) Onychogryphosis (Acute) Venous insufficiency of both lower extremities (Acute) Ulcer of right foot with fat layer exposed (Acute) Controlled type 2 diabetes mellitus with ulcer of toe (Acute) Atherosclerosis of [place] arteries of right leg with ulceration of ankle (Acute) Impacted cerumen, bilateral (Acute) Ulcer of extremity due to chronic venous insufficiency (Acute) Pneumonia (Acute) Nail dystrophy (Acute) Lumbar stenosis (Acute) Carpal tunnel syndrome of left wrist (Acute) Bilateral hand numbness (Acute) Foot drop, bilateral (Acute) Diabetic neuropathy (Acute) Left sided sciatica (Acute) Impairment of speech discrimination (Acute) Asymmetrical sensorineural hearing loss (Acute) Onychomycosis (Acute) DVT prophylaxis (Acute) Sepsis (Acute) Infection of total right knee replacement (Acute) S/p irrigation and debridement; poly exchange; arthrotomy repair DOS: 10/04/2021 Advance care planning (Acute) Bacteremia (Acute) Asymmetrical sensorineural hearing loss (Acute) History of total right knee replacement (Acute 01/16/21) First degree heart block (Acute) Discharge planning issues (Acute) DVT prophylaxis (Acute) Cellulitis (Acute) History of total left knee replacement (TKR) (Acute 12/14/19) Dr. Wilson s/p debridement and poly exchange 02/10/20 Renal insufficiency (Chronic) Hypertension (Chronic) Tubular adenoma of colon (Acute 09/02/16) Low blood magnesium (Acute 11/01/13) Tubulovillous adenoma polyp of colon (Chronic) Noted by colonoscopy. Chest pain, rule out acute myocardial infarction (Acute 11/01/13) Abnormal LFTs (Chronic) Secondary to fartty infiltrate of the liver. Diabetic renal disease (Chronic) Benign hypertension (Chronic) Obesity (Chronic) Benign prostatic hyperplasia (Chronic) Obstructive sleep apnea syndrome (Chronic) Nocturnal CPAP Hyperlipidemia (Chronic) Diabetes mellitus type 2 (Chronic) Since approximately 1997. On insulin thereapy. Last hemoglobin A1c 6.5% March 2013. 11-01-2013: Most recent hemoglobin A1c was 6.6 ? date. Medical History Paresthesias Fatty infiltration of liver Erectile dysfunction Foot drop Unsteady gait History of removal of joint prosthesis of right knee due to infection CKD (chronic kidney disease), stage III Microalbuminuria Diabetic polyneuropathy Morbid obesity Sleep apnea BPH (benign prostatic hyperplasia) Myalgia Perennial allergic rhinitis Vertigo Palliative care patient Hearing loss Chronic lower back pain Osteoarthritis Venous insufficiency Sleep apnea with use of continuous positive airway pressure (CPAP) History of seizures as a child Hx of myocardial infarction 10/2011 STRESS TEST COMPLETED 11/29/2019 Hyperlipidemia CAD (coronary artery disease) Cellulitis RIGHT LOWER LEG Diabetes Arthritis Surgical History History of total left hip arthroplasty (07/29/23) Carpal tunnel syndrome of right wrist S/P ECTR: 10/28/2022 H/O total knee replacement left knee 12/14/2019, right knee 01/16/2021 History of tonsillectomy and adenoidectomy H/O heart artery stent X2 2014 colonoscopy (10/04/16) Family History Maternal Aunt Colon cancer Maternal Aunt Colon cancer Father , 70s Heart disease Mother Lung cancer Brother Liver failure Son , tractor accident Accident caused by farm tractor Social History Smoking/Tobacco Use Status: Never Smoking risk assessment performed?: Yes Alcohol Intake: never Drug use: Never Substance use type: does not use Housing: house Do you feel safe at home: Yes Do you feel safe in your relationship?: Yes Additional Social history: unable to assess to privately
[2024-02-03 13:18] LABS: Abs Immature Grans 0.03 10^3/uL (0.0-0.06); Absolute Basophil Count 0.04 10^3/uL (0.0-0.2); Absolute Eosinophil Count 0.11 10^3/uL (0.0-0.7); Absolute Lymphocyte Count 0.44 10^3/uL (1.2-3.4); Absolute Monocyte Count 0.44 10^3/uL (0.1-0.8); Absolute Neutrophil Count 6.37 10^3/uL (1.2-6.7); Basophils % 0.5; Eosinophils % 1.5; HCT 37.3 % (40.0-50.0); HGB 11.6 g/dL (13.5-17.5); Immature Grans % 0.4; Lymphocytes % 5.9; MCH 24.2 pg (27.0-33.0); MCHC 31.1 % (32.0-36.0); MCV 78 fL (80-95); MPV 9.4 fL (8.0-11.0); Monocytes % 5.9; Neutrophils % 85.8; Platelet Count 204 10^3/uL (130-400); RBC 4.79 10^6/uL (4.36-5.78); RDW 18.6 % (11.8-14.1); RDW-SD 52.6 fL; WBC 7.43 10^3/uL (4.4-10.8)
[2024-02-03 13:21] LABS: ESR 54 mm/hr (0-20)
[2024-02-03 13:32] LABS: INR 1.1 (0.9-1.1); Prothrombin Time 11.4 sec (9.1-11.1)
[2024-02-03 13:44] LABS: ALT 34 U/L (16-63); AST 37 U/L (15-37); Alkaline Phosphatase 126 U/L (46-116); Anion Gap 10.4 mmol/L (3-11); BUN 52 mg/dL (7-18); Bilirubin, Total 0.4 mg/dL (0.2-1.0); C-Reactive Protein 11.81 mg/dL (<or=0.5); CO2 24.6 mmol/L (21.0-32.0); CREATININE 1.8 mg/dL (0.70-1.30); Chloride 100 mmol/L (98-107); Estimated GFR 37.35 (mL/min/1.73m2); Glucose 127 mg/dL (74-106); Magnesium 1.6 mg/dL (1.8-2.4); Potassium 4.9 mmol/L (3.5-5.1); Sodium 135 mmol/L (136-145); Total Protein 7.4 g/dL (6.4-8.2)
--- NOTE | 2024-02-03 13:45 | DI.MRI_ITS ---
Exam(s) MR LOWER EXTREMITY LT WO/W CLINICAL HISTORY: ?osteo, ?abscess. TECHNIQUE: Multiplanar multisequence MRI was performed. CONTRAST MATERIAL: IV Contrast: 20 mL of Dotarem contrast administered. COMPARISON: MRI foot January 23 FINDINGS: BONES/JOINTS: No fracture or contusion pattern. Abnormal high signal in the base of the 5th metatars al and up to the mid metatarsal shaft. Erosion again noted at base of 5th metatarsal. High signal a lso seen at base of 4th metatarsal also cystic area. This of 3rd metatarsal also shows erosion. Krzysztof e enhancement present, this was not present previously. Cuboid is difficult to evaluate due to artif act from metallic fragment. SOFT TISSUES: Soft tissue wound seen adjacent to the base of the 5th metatarsal small adjacent fluid collection.. Postcontrast enhancement within the soft tissues. Small abscesses in the lateral subcu taneous fat. Metallic artifact again noted in lateral soft tissues, at the level of the cuboid.. ENHANCEMENT: No suspicious enhancement identified. IMPRESSION: Suspicious for osteomyelitis involving the proximal half of 5th metatarsal as well as the base of the 4th 4th metatarsal. Question erosion at base of 3rd metatarsal. Small abscesses in the subcutaneous tissues of the lateral and plantar aspect of the foot. Findings called to Dr. Hall of the emergency department. DATA REPOSITORY:
[2024-02-03 14:07] LABS: Procalcitonin 0.1 ng/mL
[2024-02-03] MEDS: CEFEPIME 2 GM in Normal Saline 100 ML IVPB (14:22)
[2024-02-03] MEDS: metroNIDAZOLE 500 MG TAB PO ×2 (14:22→20:08)
--- NOTE | 2024-02-03 14:35 | HPE_ITS ---
Date of service: 02/03/24 Time of Service: 14:35 Assessment and Plan Assessment and plan (1) Diabetic foot infection: Status: Acute Assessment and plan: - Left foot, chronic, failed outpatient oral antibiotic therapy -Infectious disease [place] [facility] following antibiotic regimen she has been started in the emergency department; 2 g of cefepime every 12 hours, daptomycin 750 mg daily, and oral Flagyl 500 mg 3 times daily -MRI of the left foot has been ordered, will follow-up results -Podiatry has been consulted, will follow MRI results and determine if patient will require surgical intervention (2) Diabetic neuropathy: Status: Acute Assessment and plan: - Continue home pregabalin (3) Hypertension: Status: Chronic Assessment and plan: - Continue home carvedilol, losartan, and HCTZ (4) Renal insufficiency: Status: Chronic Assessment and plan: - Creatinine baseline (5) Obstructive sleep apnea syndrome: Status: Chronic Assessment and plan: - Continue home CPAP (6) Diabetes mellitus type 2: Status: Chronic Assessment and plan: - Sliding scale insulin -N.p.o. at this time in the event patient has surgical debridement, will restart basal insulin once patient is taking p.o. and will be on CCD History of Present Illness History of Present Illness Chief Complaint: Left foot wound/cellulitis N arrative: 79yo male with PMH IDDM, peripheral neuropathy, history of osteomyolitis of the left foot, bilateral LE venous insufficiency, CKD, QUETA on CPAP, HTN and HLD who presents to the ED for concerns of a nonhealing left diabetic wound. Patient has been followed by Dr. Contreras of infectious disease from [facility] patient has been on oral antibiotics despite his wound worsening on his left foot. She was 1 who recommended the patient present to the emergency department for admission and IV antibiotics consultation with podiatry for potential surgery/wound debridement depending on CT or MRI results. Other than his worsening wound, patient has no complaints or concerns at this time. Dr. Taveras recommended that the patient be started on 2 g of cefepime every 12 hours, daptomycin 750 mg daily, and oral Flagyl 500 mg 3 times daily. Patient's CBC and CMP are unremarkable. X-ray of the left foot was done but did not show any acute findings. In the MRI of the left foot has also been ordered as well as a consultation with podiatry. At which time emergency room physician paged hospitalist for admission for patient with a nonhealing chronic left diabetic foot wound requiring IV antibiotics and possible surgical debridement. Review of Systems All systems reviewed & are unremarkable except as noted in HPI and below PFSH All Active Problems Diabetic foot infection (Acute) Atherosclerosis of lower extremity with ulceration (Acute) Atherosclerosis of artery of both lower extremities (Acute) Ulcer of left foot with fat layer exposed (Acute) Osteomyelitis of left foot (Acute) Restless leg syndrome (Acute) DVT (deep venous thrombosis) (Chronic) Venous ulcer-leg syndrome, bilateral (Acute) Onychogryphosis (Acute) Venous insufficiency of both lower extremities (Acute) Ulcer of right foot with fat layer exposed (Acute) Controlled type 2 diabetes mellitus with ulcer of toe (Acute) Atherosclerosis of [place] arteries of right leg with ulceration of ankle (Acute) Impacted cerumen, bilateral (Acute) Ulcer of extremity due to chronic venous insufficiency (Acute) Pneumonia (Acute) Nail dystrophy (Acute) Lumbar stenosis (Acute) Carpal tunnel syndrome of left wrist (Acute) Bilateral hand numbness (Acute) Foot drop, bilateral (Acute) Diabetic neuropathy (Acute) Left sided sciatica (Acute) Impairment of speech discrimination (Acute) Asymmetrical sensorineural hearing loss (Acute) Onychomycosis (Acute) DVT prophylaxis (Acute) Sepsis (Acute) Infection of total right knee replacement (Acute) S/p irrigation and debridement; poly exchange; arthrotomy repair DOS: 10/04/2021 Advance care planning (Acute) Bacteremia (Acute) Asymmetrical sensorineural hearing loss (Acute) History of total right knee replacement (Acute 01/16/21) First degree heart block (Acute) Discharge planning issues (Acute) DVT prophylaxis (Acute) Cellulitis (Acute) History of total left knee replacement (TKR) (Acute 12/14/19) Dr. Wilson s/p debridement and poly exchange 02/10/20 Renal insufficiency (Chronic) Hypertension (Chronic) Tubular adenoma of colon (Acute 09/02/16) Low blood magnesium (Acute 11/01/13) Tubulovillous adenoma polyp of colon (Chronic) Noted by colonoscopy. Chest pain, rule out acute myocardial infarction (Acute 11/01/13) Abnormal LFTs (Chronic) Secondary to fartty infiltrate of the liver. Diabetic renal disease (Chronic) Benign hypertension (Chronic) Obesity (Chronic) Benign prostatic hyperplasia (Chronic) Obstructive sleep apnea syndrome (Chronic) Nocturnal CPAP Hyperlipidemia (Chronic) Diabetes mellitus type 2 (Chronic) Since approximately 1997. On insulin thereapy. Last hemoglobin A1c 6.5% March 2013. 11-01-2013: Most recent hemoglobin A1c was 6.6 ? date. Medical History Paresthesias Fatty infiltration of liver Erectile dysfunction Foot drop Unsteady gait History of removal of joint prosthesis of right knee due to infection CKD (chronic kidney disease), stage III Microalbuminuria Diabetic polyneuropathy Morbid obesity Sleep apnea BPH (benign prostatic hyperplasia) Myalgia Perennial allergic rhinitis Vertigo Palliative care patient Hearing loss Chronic lower back pain Osteoarthritis Venous insufficiency Sleep apnea with use of continuous positive airway pressure (CPAP) History of seizures as a child Hx of myocardial infarction 10/2011 STRESS TEST COMPLETED 11/29/2019 Hyperlipidemia CAD (coronary artery disease) Cellulitis RIGHT LOWER LEG Diabetes Arthritis Surgical History History of total left hip arthroplasty (07/29/23) Carpal tunnel syndrome of right wrist S/P ECTR: 10/28/2022 H/O total knee replacement left knee 12/14/2019, right knee 01/16/2021 History of tonsillectomy and adenoidectomy H/O heart artery stent X2 2014 colonoscopy (09/02/16) Family History Maternal Aunt Colon cancer Maternal Aunt Colon cancer Father , 70s Heart disease Mother Lung cancer Brother Liver failure Son , tractor accident Accident caused by farm tractor Social History Smoking/Tobacco Use Status: Never Smoking risk assessment performed?: Yes Alcohol Intake: never Drug use: Never Substance use type: does not use Housing: house Do you feel safe at home: Yes Do you feel safe in your relationship?: Yes Additional Social history: unable to assess to privately Meds Allergies and Home Medications Allergies Allergy/AdvReac Type Severity Reaction Status Date / Time amlodipine besylate AdvReac Mild edema Verified 02/03/24 12:43 [From Norvasc] enalapril maleate AdvReac Mild cough Verified 02/03/24 12:43 [From Vasotec] enalaprilat dihydrate AdvReac Mild cough Verified 02/03/24 12:43 [From Vasotec] pravastatin sodium AdvReac Mild myalgia Verified 02/03/24 12:43 [From Pravachol] from Lipitor rosuvastatin [From Crestor] AdvReac Mild Myalgia Verified 02/03/24 12:43 Home Medications Medication Instructions Recorded Confirmed Type losartan 100 mg tablet (Cozaar) 100 mg PO DAILY 11/01/13 02/03/24 History hydrochlorothiazide 50 mg tablet 50 mg PO DAILY #0 tab-caps 02/20/20 02/03/24 Rx carvedilol 25 mg tablet 25 mg PO BID 01/16/21 02/03/24 History doxazosin 4 mg tablet (Cardura) 4 mg PO QPM 02/06/22 02/03/24 History magnesium oxide 400 mg (241.3 mg 800 mg PO DAILY 07/21/22 02/03/24 History magnesium) tablet apple cider vinegar 300 mg tablet 300 mg PO BID 07/29/22 02/03/24 History vitamin B complex (B 1 tab PO DAILY 09/25/22 01/26/24 History Complex-Vitamin B12 tablet) penicillin V potassium 500 mg 500 mg PO TID #273 tabs 12/25/22 02/03/24 Rx tablet insulin glargine 100 unit/mL 25 unit subcut QHS 04/01/23 02/03/24 History subcutaneous solution (Lantus U-100 Insulin) insulin lispro 100 unit/mL See Rx Instructions subcut 04/01/23 02/03/24 History subcutaneous pen (Humalog KwikPen .SLIDING SCALE (U-100) Insulin) fluticasone propionate 50 1 spray intranasal DAILY 05/28/23 01/26/24 History mcg/actuation nasal spray,suspension povidone-iodine 10 % topical 1 applic topical DAILY 07/02/23 02/03/24 Rx solution (Betadine) disinfection of wound #118 mL urea 45 % topical gel (KEENAN-Urea) 1 applic topical BID #28 mL 07/16/23 01/26/24 Rx acetaminophen 500 mg tablet 1,000 mg (2 x 500 mg) PO TID #90 07/29/23 02/03/24 Rx tabs AFO #1 ea 08/10/23 01/26/24 Rx triamcinolone acetonide 0.05 % 1 applic topical DAILY 08/19/23 01/26/24 History topical ointment aspirin 81 mg tablet,delayed 81 mg PO DAILY 09/08/23 02/03/24 History release pantoprazole 40 mg tablet,delayed 40 mg PO DAILY 09/23/23 02/03/24 History release pregabalin 100 mg capsule 100 mg PO .COMPLEX #180 caps 11/16/23 02/03/24 Rx pregabalin 200 mg capsule 200 mg PO QHS #90 caps 11/16/23 02/03/24 Rx ropinirole 1 mg tablet See Rx Instructions PO .COMPLEX 11/16/23 02/03/24 Rx #270 tabs empagliflozin 25 mg tablet 25 mg PO DAILY 12/25/23 02/03/24 History (Jardiance) ketoconazole 2 % topical cream 1 applic topical DAILY 12/25/23 01/26/24 History collagenase clostridium histo. 250 1 applic topical DAILY #90 grams 01/12/24 01/26/24 Rx unit/gram topical ointment (Santyl) amoxicillin 500 mg-potassium 1 tab PO BID 14 days #28 tabs 01/28/24 02/03/24 Rx clavulanate 125 mg tablet (Augmentin) Exam Narrative Exam Narrative: Well-appearing obese older gentleman reclining in the chair no acute distress, ANO x 4, heart regular rhythm, lungs clear to auscultation bilaterally, abdomen soft, nontender, nondistended, left foot wrapped in bandage, please see emergency room and/or podiatry note for further details Results Labs 02/03/24 13:00 02/03/24 13:00 Labs: Laboratory Results - last 24 hr 02/03/24 13:00 WBC 7.43 RBC 4.79 Hgb 11.6 L Hct 37.3 L MCV 78 L MCH 24.2 L MCHC 31.1 L RDW 18.6 H Plt Count 204 MPV 9.4 Immature Gran % 0.4 Neutrophils % 85.8 Lymphocytes % 5.9 Monocytes % 5.9 Eosinophils % 1.5 Basophils % 0.5 Nucleated RBC % 0.0 Absolute Neutrophils 6.37 Absolute Lymphocytes 0.44 L Absolute Monocytes 0.44 Absolute Eosinophils 0.11 Absolute Basophils 0.04 ESR 54 H PT 11.4 H INR 1.1 APTT 28.0 Sodium 135 L Potassium 4.9 Chloride 100 Carbon Dioxide 24.6 Anion Gap 10.4 BUN 52 H Creatinine 1.8 H Est GFR (CKD-EPI 2020) 37.35 Glucose 127 H Calcium 9.0 Magnesium 1.6 L Total Bilirubin 0.4 AST 37 ALT 34 Alkaline Phosphatase 126 H C-Reactive Protein 11.81 H Total Protein 7.4 Albumin 3.0 L Procalcitonin 0.1 Last Vital Signs Temp 97.7 F 02/03/24 12:32 Pulse 82 02/03/24 12:32 Resp 18 02/03/24 12:32 BP 116/65 02/03/24 12:32 Pulse Ox 97 02/03/24 12:32 Time Spent Time spent with Patient: >75 minutes Time was spent: preparing to see the patient(eg.review tests), obtaining and/or reviewing separately otained hiistory, ordering medications,tests, procedures, referring, communicating with other health nonfarm animal caretaker, indepentently interpreting results, counseling the patient and care coordination
[2024-02-03] MEDS: Gadoterate meglumine 20 ML SYRINGE IVP (15:22)
[2024-02-03] MEDS: Normal Saline Flush 10 ML SYR IVP ×2 (15:23→20:08)
--- NOTE | 2024-02-03 16:17 | DI.RAD_ITS ---
Exam(s) XR FOOT LT COMPLETE EXAM: XR FOOT LT COMPLETE CLINICAL HISTORY: ?osteo. TECHNIQUE: 2D digital imaging was performed. Three views. COMPARISON: CR XR FOOT LT COMPLETE from 12/30/2023 CR XR FOOT LT COMPLETE from 01/26/2024 MR MR LOWER EXTREMITY LT WO/W from 02/03/2024 FINDINGS: BONES: No acute fracture is present. No bony destructive lesion is seen. JOINTS: No dislocation present. SOFT TISSUE: Soft tissue swelling throughout the foot. Soft tissue wound seen laterally near the bas e of the 5th metatarsal. Increasing erosion at the base of the 4th and 5th metatarsals. Metallic for eign body again noted near cuboid. IMPRESSION: Increased erosions at the base of the 4th and 5th metatarsals. Findings suspicious for osteomyelitis . DATA REPOSITORY: RADIATION DOSE DELIVERED:
--- NOTE | 2024-02-03 17:03 | RESPIRATORY ---
Pt's own ResMed AirSense 11 AutoSet CPAP Min 13 / Max 15 cmH2O No O2 bleed in Face Mask: Medium DME: [facility]
[2024-02-03 17:30] VITALS: BP 144/80; PULSE 70; RESP 20; TEMP 35.8; O2SAT 97
[2024-02-03] MEDS: MAGNESIUM SULFATE 2 GM/50 ML BAG IVPB (17:52)
[2024-02-03 19:14] VITALS: BP 156/73; PULSE 82; RESP 22; TEMP 35.8; O2SAT 96
[2024-02-03 23:01] VITALS: BP 141/71; PULSE 72; RESP 19; TEMP 36.3; O2SAT 95
[2024-02-04] VITALS (19 sets, daily range): BP systolic 117–167; BP diastolic 57–85; PULSE 68–99; RESP 14–28; TEMP 36–37.8; O2SAT 94–99; BMI 41.9
--- NOTE | 2024-02-04 | DI.CT_ITS ---
Exam(s) CT ABD AORTA CTA W RUNOFF EXAM: CT ABD AORTA CTA W RUNOFF CLINICAL HISTORY: left ext. and vascular compromise with osteomyelit. TECHNIQUE: Imaging Protocol: Axial CT angiography was performed with multi-slice acquisition and mu lti-planar and/or 3D reconstructions. CONTRAST MATERIAL: Intravenous: Omnipaque 350 Contrast volume:structured data in ml Contrast route:I V - Oral: yes / COMPARISON: CT CT CHEST PE CTA from 09/27/2021 FINDINGS: Vascular Structures: Heart: Normal size. Coronary artery calcifications. Abdomen: Celiac [place]/SMA: No evidence of stenosis. Renal Arteries: No evidence of stenosis. There is a single renal artery perfusing each kidney. Aorta: No aneurysm. No dissection. Moderate to severe atherosclerotic changes. Pelvis: Iliac Arteries: No evidence of stenosis. Moderate atherosclerotic changes of common iliac arteries.. Common Femoral Arteries: Moderate atherosclerotic changes without significant stenosis. Lower extremities: Right: Common Femoral: Multifocal calcifications. Superficial Femoral: No evidence of stenosis. Popliteal: Knee prosthesis creates artifact. Knee Trifurcation: Multifocal calcification. Fwvd-aa-ohqoifam stenosis. Posterior Tibial: Multifocal calcification. Elee-mv-nghxaiqw stenosis Peroneal: Multifocal calcification. Snhn-ma-cvdlkffg stenosis Dorsalis Pedis: Multifocal calcifications. Bkyx-yh-nvqjphqi stenosis. Left: Common Femoral: No evidence of stenosis. Superficial Femoral: No evidence of stenosis. Popliteal: The prosthesis creates artifact. Knee Trifurcation: Multifocal calcifications. Posterior Tibial: Multifocal calcifications with gamh-vc-bhsncguv stenosis. Peroneal: Multifocal calcifications and wead-kn-ijnvffhq stenosis. Dorsalis Pedis: Multifocal calcifications and jtqk-rn-itngscoc. Soft Tissues: Soft tissue edema severe over the dorsal lateral aspect of the foot. Air in this area as well as some high density material which may represent packing. Erosions at the bases of the 4th and 5th metatarsals. Findings consistent with osteomyelitis. There is bilateral lower extremity casey ma. Lungs: No acute findings. Liver: Nodular contour. No measurable mass. Gallbladder and biliary tract: No radiodense calculus or dilation. Pancreas: Normal density, no abnormal calcifications or inflammatory process. Spleen: Mildly enlarged. Kidneys: Normal size, contour and axis. No radiodense stones or obstructive uropathy. No masses seen. Adrenal glands: No masses seen. Aorta: Abdominal portion non-dilated. Bladder: Symmetric distention, no gross wall thickening. Bowel: No obstruction or bowel wall thickening. Peritoneal cavity: No ascites, collection or mesenteric inflammatory response. Bones: Left hip prosthesis. Reproductive: Unremarkable. IMPRESSION: Atherosclerotic changes causing ubll-et-uxelvqhq stenosis in both lower extremities. The vessels of the ankles and feet appear patent. RADIATION DOSE DELIVERED: Total DLP DATA REPOSITORY: All CT scans at this facility are submitted to the National Radiology Data Registry (NRDR) Dose Index Registry (DIR) with the [employer] (ACR). RADIATION OPTIMIZATION: All CT scans at this facility use at least one of these dose optimization te chniques: automated exposure control; mA and/or kV adjustment per patient size (includes targeted exa ms where dose is matched to clinical indication); or iterative reconstruction.
[2024-02-04] MEDS: CEFEPIME 2 GM in Normal Saline 100 ML IVPB ×2 (01:19→14:18)
[2024-02-04 06:42] LABS: HGB 12.2 g/dL (13.5-17.5); MCH 24.1 pg (27.0-33.0); MCHC 31.3 % (32.0-36.0); MCV 77 fL (80-95); MPV 9.3 fL (8.0-11.0); Platelet Count 227 10^3/uL (130-400); RBC 5.06 10^6/uL (4.36-5.78); RDW 18.6 % (11.8-14.1); WBC 5.95 10^3/uL (4.4-10.8)
[2024-02-04 06:56] LABS: Anion Gap 10.2 mmol/L (3-11); BUN 41 mg/dL (7-18); CO2 24.8 mmol/L (21.0-32.0); CREATININE 1.5 mg/dL (0.70-1.30); Calcium 9.7 mg/dL (8.5-10.1); Chloride 103 mmol/L (98-107); Estimated GFR 46.48 (mL/min/1.73m2); Glucose 118 mg/dL (74-106); Magnesium 1.8 mg/dL (1.8-2.4); Sodium 138 mmol/L (136-145)
--- NOTE | 2024-02-04 08:14 | ANES.PREOP_ITS ---
General Info Date of Service Date Performed: 02/04/24 Height: 5 ft 8 in Weight: 125.191 kg Body Mass Index (BMI): 41.9 Surgical Procedure: Operation Date: 02/04/24 10:10 Proposed Procedure Side Surgeon p I&D Foot Left Parvin Li DPM Meds Allergies and Home Medications Allergies Allergy/AdvReac Type Severity Reaction Status Date / Time amlodipine besylate AdvReac Mild edema Verified 02/03/24 12:43 [From Norvasc] enalapril maleate AdvReac Mild cough Verified 02/03/24 12:43 [From Vasotec] enalaprilat dihydrate AdvReac Mild cough Verified 02/03/24 12:43 [From Vasotec] pravastatin sodium AdvReac Mild myalgia Verified 02/03/24 12:43 [From Pravachol] from Lipitor rosuvastatin [From Crestor] AdvReac Mild Myalgia Verified 02/03/24 12:43 Home Medication Medication Instructions Recorded losartan 100 mg tablet (Cozaar) 100 mg PO DAILY 11/01/13 hydrochlorothiazide 50 mg tablet 50 mg PO DAILY #0 tab-caps 02/20/20 carvedilol 25 mg tablet 25 mg PO BID 01/16/21 doxazosin 4 mg tablet (Cardura) 4 mg PO QPM 02/06/22 magnesium oxide 400 mg (241.3 mg 800 mg PO DAILY 07/21/22 magnesium) tablet apple cider vinegar 300 mg tablet 300 mg PO BID 07/29/22 vitamin B complex (B 1 tab PO DAILY 09/25/22 Complex-Vitamin B12 tablet) penicillin V potassium 500 mg 500 mg PO TID #273 tabs 12/25/22 tablet insulin glargine 100 unit/mL 25 unit subcut QHS 04/01/23 subcutaneous solution (Lantus U-100 Insulin) insulin lispro 100 unit/mL See Rx Instructions subcut 04/01/23 subcutaneous pen (Humalog KwikPen .SLIDING SCALE (U-100) Insulin) fluticasone propionate 50 1 spray intranasal DAILY 05/28/23 mcg/actuation nasal spray,suspension povidone-iodine 10 % topical 1 applic topical DAILY 07/02/23 solution (Betadine) disinfection of wound #118 mL urea 45 % topical gel (KEENAN-Urea) 1 applic topical BID #28 mL 07/16/23 acetaminophen 500 mg tablet 1,000 mg (2 x 500 mg) PO TID #90 07/29/23 tabs AFO #1 ea 08/10/23 triamcinolone acetonide 0.05 % 1 applic topical DAILY 08/19/23 topical ointment aspirin 81 mg tablet,delayed 81 mg PO DAILY 09/08/23 release pantoprazole 40 mg tablet,delayed 40 mg PO DAILY 09/23/23 release pregabalin 100 mg capsule 100 mg PO .COMPLEX #180 caps 11/16/23 pregabalin 200 mg capsule 200 mg PO QHS #90 caps 11/16/23 ropinirole 1 mg tablet See Rx Instructions PO .COMPLEX 11/16/23 #270 tabs empagliflozin 25 mg tablet 25 mg PO DAILY 12/25/23 (Jardiance) ketoconazole 2 % topical cream 1 applic topical DAILY 12/25/23 collagenase clostridium histo. 250 1 applic topical DAILY #90 grams 01/12/24 unit/gram topical ointment (Santyl) amoxicillin 500 mg-potassium 1 tab PO BID 14 days #28 tabs 01/28/24 clavulanate 125 mg tablet (Augmentin) ropinirole 2 mg tablet 2 mg PO DAILY 02/04/24 Current Visit Medications: Current Medications Generic Name Dose Route Start Last Admin Trade Name Kye PRN Reason Stop Dose Admin Acetaminophen 0 mg 02/03/24 16:30 Acetaminophen 325 Mg Tab PO Q4H PRN PRN Dextrose 0 gm 02/03/24 16:30 Glucose Oral Gel 15 Gm/37.5 Gm Tube PO DIRECTED PRN Dextrose/Water 0 gm 02/03/24 16:30 Dextrose 50%-Water 25 Gm/50 Ml Syr IVP DIRECTED PRN Docusate Sodium 100 mg 02/03/24 16:30 Docusate Sodium 100 Mg Cap PO TID PRN PRN Gadoterate Meglumine 20 ml 02/03/24 15:30 02/03/24 15:22 Gadoterate Meglumine 20 Ml Syringe IVP 03/04/24 23:59 20 ml DIRECTED HELEN Administration Cefepime HCl 2 gm/ Sodium 100 mls @ 200 mls/hr 02/04/24 02:00 02/04/24 01:50 Chloride IVPB Infused Q12H HELEN Infusion Daptomycin 750 mg/ Sodium 50 mls @ 100 mls/hr 02/04/24 08:30 Chloride IVPB DAILY [facility] IV Miscellaneous Supplies 1 each 02/03/24 16:30 Iv Access IV DIRECTED [facility] Insulin Aspart 0 units 02/03/24 17:00 02/04/24 07:19 Insulin Aspart 300 Units/3 Ml Pen SC Not Given 0800,1200,1700 [facility] Protocol Metronidazole 500 mg 02/03/24 20:00 02/03/24 20:08 Metronidazole 500 Mg Tab PO 500 mg TID HELEN Administration Polyethylene Glycol 17 gm 02/03/24 16:30 Polyethylene Glycol 3350 17 Gm Packet PO DAILY PRN PRN Constipation Sodium Chloride 0 ml 02/03/24 16:30 Normal Saline Flush 10 Ml Syr IVP PRN PRN Sodium Chloride 0 ml 02/03/24 20:00 02/03/24 20:08 Normal Saline Flush 10 Ml Syr IVP 10 ml BID HELEN Administration Sodium Chloride 0 ml 02/03/24 16:30 Normal Saline 10 Ml Vial IJ DIRECTED PRN PFSH Active Problems Active Problems: Problem Status Onset Code Diabetic foot infection E11.628, L08.9 Atherosclerosis of lower extremity with ulceration I70.25 Atherosclerosis of artery of both lower extremities I70.203 Ulcer of left foot with fat layer exposed L97.522 Osteomyelitis of left foot M86.9 Restless leg syndrome G25.81 DVT (deep venous thrombosis) I82.409 Venous ulcer-leg syndrome, bilateral I83.019, I83.029, L97.929, L97.919 Onychogryphosis L60.2 Venous insufficiency of both lower extremities I87.2 Ulcer of right foot with fat layer exposed L97.512 Controlled type 2 diabetes mellitus with ulcer of toe E11.621, L97.509 Atherosclerosis of [place] arteries of right leg with ulceration of ankle I70.233 Impacted cerumen, bilateral H61.23 Ulcer of extremity due to chronic venous insufficiency L98.499, I87.2 Pneumonia J18.9 Nail dystrophy L60.3 Lumbar stenosis M48.061 Carpal tunnel syndrome of left wrist G56.02 Bilateral hand numbness R20.0 Foot drop, bilateral M21.371, M21.372 Diabetic neuropathy E11.40 Left sided sciatica M54.32 Impairment of speech discrimination H93.299 Asymmetrical sensorineural hearing loss H90.3 Onychomycosis B35.1 DVT prophylaxis Z29.9 Sepsis A41.9 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.53XA Advance care planning Z71.89 Acute on chronic renal failure N17.9, N18.9 Bacteremia R78.81 Cellulitis of leg, right L03.115 Community acquired pneumonia J18.9 Asymmetrical sensorineural hearing loss H90.5 History of total right knee replacement 01/16/21 Z96.651 First degree heart block I44.0 Septic arthritis of knee, left 02/09/20 M00.9 Acute kidney injury (nontraumatic) N17.9 Discharge planning issues Z02.9 DVT prophylaxis Z29.9 Cellulitis L03.90 Sepsis A41.9 History of total left knee replacement (TKR) 12/14/19 Z96.652 Renal insufficiency N28.9 Hypertension I10 Tubular adenoma of colon 09/02/16 D12.6 Low blood magnesium 11/01/13 E83.42 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 Chest pain, rule out acute myocardial infarction 11/01/13 R07.9 Abnormal LFTs 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 Benign hypertension I10 Obesity E66.9 Benign prostatic hyperplasia N40.0 Obstructive sleep apnea syndrome G47.33 Hyperlipidemia E78.5 Diabetes mellitus type 2 E11.9 Medical History Medical History Paresthesias Fatty infiltration of liver Erectile dysfunction Foot drop Unsteady gait History of removal of joint prosthesis of right knee due to infection CKD (chronic kidney disease), stage III Microalbuminuria Diabetic polyneuropathy Morbid obesity Sleep apnea BPH (benign prostatic hyperplasia) Myalgia Perennial allergic rhinitis Vertigo Palliative care patient Hearing loss Chronic lower back pain Osteoarthritis Venous insufficiency Sleep apnea with use of continuous positive airway pressure (CPAP) History of seizures as a child Hx of myocardial infarction 10/2011 STRESS TEST COMPLETED 11/29/2019 Hyperlipidemia CAD (coronary artery disease) Cellulitis RIGHT LOWER LEG Diabetes Arthritis Surgical History Surgical History History of total left hip arthroplasty (07/29/23) Carpal tunnel syndrome of right wrist S/P ECTR: 10/28/2022 H/O total knee replacement left knee 12/14/2019, right knee 01/16/2021 History of tonsillectomy and adenoidectomy H/O heart artery stent X2 2014 colonoscopy (09/02/16) Tobacco Smoking/Tobacco Use Status: Never Alcohol Alcohol Intake: never Substance Use Substance use: Never Substance use type: does not use Vital Signs and Lab Results Vital Signs Most Recent Vital Signs in EMR: Most Recent Vital Signs Temp Pulse Resp BP Pulse Ox 36.0 C L 71 18 156/75 H 98 02/04/24 07:37 02/04/24 07:37 02/04/24 07:37 02/04/24 07:37 02/04/24 07:37 Lab Results 02/04/24 06:25 02/04/24 06:25 Blood Type / Crossmatch: 2 No Data to Display Complete Blood Count: 2 White Blood Count 5.95 10^3/uL (4.4-10.8) 02/04/24 06:25 Red Blood Count 5.06 10^6/uL (4.36-5.78) 02/04/24 06:25 Hemoglobin 12.2 g/dL (13.5-17.5) L 02/04/24 06:25 Hematocrit 39.0 % (40.0-50.0) L 02/04/24 06:25 Platelet Count 227 10^3/uL (130-400) 02/04/24 06:25 Complete Metabolic Panel: 2 Sodium 138 mmol/L (136-145) 02/04/24 06:25 Potassium 5.0 mmol/L (3.5-5.1) 02/04/24 06:25 Chloride 103 mmol/L (98-107) 02/04/24 06:25 Carbon Dioxide 24.8 mmol/L (21.0-32.0) 02/04/24 06:25 BUN 41 mg/dL (7-18) H 02/04/24 06:25 Creatinine 1.5 mg/dL (0.70-1.30) H 02/04/24 06:25 Est GFR (CKD-EPI 2020) 46.48 (mL/min/1.73m2) 02/04/24 06:25 Magnesium 1.8 mg/dL (1.8-2.4) 02/04/24 06:25 Calcium 9.7 mg/dL (8.5-10.1) 02/04/24 06:25 Albumin 3.0 g/dL (3.4-5.0) L 02/03/24 13:00 Glucose 118 mg/dL (74-106) H 02/04/24 06:25 Hemoglobin A1c 5.9 % (<5.7) H 01/13/24 15:40 C-Reactive Protein 11.81 mg/dL (<or=0.5) H 02/03/24 13:00 Liver Function Panel: 2 Alanine Aminotransferase (ALT/SGPT) 34 U/L (16-63) 02/03/24 13: 00 Aspartate Amino Transf (AST/SGOT) 37 U/L (15-37) 02/03/24 13:00 Coagulation Panel: 2 INR International Normalized Ratio 1.1 (0.9-1.1) 02/03/24 13:0 0 Prothrombin Time 11.4 sec (9.1-11.1) H 02/03/24 13:00 Activated Partial Thromboplast Time 28.0 sec (23.6-32.8) 13:00 Cardiac Panel: 2 No Data to Display Arterial Blood Gas: 2 No Data to Display Venous Blood Gas: 2 No Data to Display Pancreas Panel: 2 No Data to Display Thyroid Panel: 2 No Data to Display Infectious Disease: 2 No Data to Display Blood Cultures: 2 No Data to Display Toxicology Panel: 2 No Data to Display Imaging and Studies Imaging and Studies Study information below may be from another EMR and interpreted by another provider. Please see original notes in EMR for more complete details. EKG Summary: 12/22: sindhu, RI 230. Conclusion Sinus rhythm...normal P axis, V-rate 60- 99 Prolonged RI interval...RI >220, V-rate 50- 90 09/27/21 First degree AV block Stress Test Summary: Stress ECG Conclusion 1. There was no evidence of ischemia on this ECG portion of this exam. 11/29/19 Echocardiogram Summary: Conclusion Normal left ventricular wall thickness and chamber size. Estimated ejection fraction is 55 to 60%. There are no segmental wall motion abnormalities Normal right ventricular size and systolic function Both atria are normal in size Aortic valve is trileaflet and sclerotic without stenosis or regurgitation Mild mitral annular calcification with trace regurgitation Normal tricuspid valve with trace regurgitation. Unable to estimate right ventricular systolic pressure Mildly to moderately dilated aortic root and ascending aorta 09/30/21 Cardiac Catheterization Summary: 2014: 2 stents placed post [place], no issues since MRI Summary: 08/21 lumbar spine: multi level DDD, central spinal canal stenosis at each level in the lumbar spine with relative sparing of L5-S1 Anesthesia Assessment and Plan Anesthesia History Personal History: No History of Anesthesia Complications Family History: No Family History of Anesthesia Complications Exercise Tolerance Exercise Tolerance: Metabolic Equivalents<4 Pertinent Negatives Pertinent Negatives: No History of CVA/TIA Cardiac & Pulmonary Exam Cardiac Exam: Normal S1/S2 Heart Sounds Pulmonary Exam: Clear Bilateral Breath Sounds Implantable Cardiac Device Does patient have a Pacemaker or an ICD?: No Airway Exam Known Difficult Airway: No Mallampati Class: 3 Mouth Opening: Narrow (< 3cm) Thyromental Distance: Greater than 3 cm Neck Range of Motion: Full ROM Neck Circumference: Normal Teeth Condition: Generalized Poor Dentition (Many missing and broken; loose upper left side of mouth ) ASA Classification ASA Score: ASA 3 Emergency Case?: No NPO Status NPO Status: NPO Clears >2 hours, Solids >8 hours Anesthesia Plan Resuscitation Status: Full Code Anesthesia Technique: MAC Anesthesia Airway Planned: Natural Airway Monitors Used: Standard Monitors Preoperative Comments:: 79 yo Male inpatient: Foot I&D. Sig PMHx: HTN (carvedilol, HCTZ, losartan), CAD (stents x 2 ~2013), 1st d AVB, QUETA, BMI 40, BPH (doxazosin), CKDIII, cervical/thoracic/lumbar stenosis, DVT, DM2 (lantus, lispro, jardance), foot drop bilat, never smoker, Previous Anes: - ECTR, prop, natural airway, no issues. - poly swap/knee infection, LMA 5, sevo/prop, ephedrine. - TKA, multiple attempt spinal without success, LMA 4 igel, dexmed/prop, phenyl near the end. - poly swap/infection, LMA 5, etomidate, prop/sevo, norepi. - TKA, spinal, 1.6 heavy - no set up, LMA 4 or 5. - DWAYNE, GA, 7.0 ETT [place] 3 CL2A, Art line dexmed gtt, nicardipine, Phenyl near end. Plan: Discussed risks and benefits of MAC vs GA - he agrees to MAC with GA as backup. Discussed potential arterial line as well along with additional vascular access as necessary.
[2024-02-04] MEDS: Normal Saline Flush 10 ML SYR IVP ×2 (08:50→20:17)
[2024-02-04] MEDS: metroNIDAZOLE 500 MG TAB PO ×3 (08:50→19:03)
--- NOTE | 2024-02-04 08:55 | POCOE_ITS ---
Date of service: 02/04/24 Time of Service: 07:45 Assessment and Plan Assessment and plan (1) Osteomyelitis of left foot: Status: Acute (2) Ulcer of left foot with fat layer exposed: Status: Acute (3) Atherosclerosis of lower extremity with ulceration: Status: Acute (4) Atherosclerosis of left lower extremity with ulceration: Status: Acute (5) Diabetic foot infection: Status: Acute (6) Diabetes mellitus type 2: Status: Chronic Assessment and plan: Patient was seen bedside today. He has a large ulcer sub left 5th met base which has bone exposed and some purulence. Patient was seen by ID at [facility] and started on IV antibiotics upon presentation to the ER yesterday, 02/03/24. MRI and XR was taken and reviewed. There is an abscess to this area. I recommend debridement of the wound and an I&D. I recommend continuing IV antibiotics. He will require at least 6 weeks IV antibiotics for osteomyelitis. He does have some XR changes to the 5th met base. Will see response to IV antibiotics for now. He will likely require resection of bone in the near future. However, will await Vascular consult and testing prior to any pippa work. I discussed I&D with him today. He agrees. He has been NPO since midnight. Discussed all risks benefits and possible complications. No guarantees or warrantees were made or implied. Patient assumes all risks and is amenable to the procedure. Planned procedure: I&D, left foot. Will require serial debridement/procedures/return to OR. There is risk for limb loss. I have discussed this in detail with the patient. He understands and agrees. History of Present Illness Narrative: Patient was seen bedside today for left foot ulcer. Patient is familiar to me and was seen in office recently. Patient has had the wound since 12/14/2023 since falling at the store and injuring his left foot. He has been getting wound care in office and home health. Patient has been on antibiotics p.o.. Patient was referred to infectious disease at [facility] and was seen by Dr. Paulino recently. In her office, she noted purulence in the wound, following discussion with her decision was made to send the patient to the ER for admission for IV antibiotics and possible wound debridement/I&D. Patient has a a nonhealing wound at the plantar aspect of the left fifth metatarsal head. He is seen resting comfortably today. He denies nausea vomiting chills fever or diarrhea. He reports some pain to the ulcer at this time. Review of Systems Cardiovascular Comments: Pulses are nonpalpable bilaterally. Venous edema noted bilaterally. Integumentary/Breasts Comments: Full-thickness ulcer with probe to bone and some purulence to the plantar aspect of the left foot. Neurologic Comments: Loss of protective sensation bilateral lower extremity.. PFSH All Active Problems (Updated 02/04/24 @ 09:09 by Parvin Li DPM) Atherosclerosis of left lower extremity with ulceration (Acute) Diabetic foot infection (Acute) Atherosclerosis of lower extremity with ulceration (Acute) Atherosclerosis of artery of both lower extremities (Acute) Ulcer of left foot with fat layer exposed (Acute) Osteomyelitis of left foot (Acute) Restless leg syndrome (Acute) DVT (deep venous thrombosis) (Chronic) Venous ulcer-leg syndrome, bilateral (Acute) Diabetes mellitus type 2 (Chronic) Since approximately 1997. On insulin thereapy. Last hemoglobin A1c 6.5% March 2013. 11-01-2013: Most recent hemoglobin A1c was 6.6 ? date. Hyperlipidemia (Chronic) Obstructive sleep apnea syndrome (Chronic) Nocturnal CPAP Benign prostatic hyperplasia (Chronic) Obesity (Chronic) Benign hypertension (Chronic) Diabetic renal disease (Chronic) Abnormal LFTs (Chronic) Secondary to fartty infiltrate of the liver. Chest pain, rule out acute myocardial infarction (Acute 11/01/13) Tubulovillous adenoma polyp of colon (Chronic) Noted by colonoscopy. Low blood magnesium (Acute 11/01/13) Tubular adenoma of colon (Acute 09/02/16) Hypertension (Chronic) Renal insufficiency (Chronic) History of total left knee replacement (TKR) (Acute 12/14/19) Dr. Wilson s/p debridement and poly exchange 02/10/20 Cellulitis (Acute) DVT prophylaxis (Acute) Discharge planning issues (Acute) First degree heart block (Acute) History of total right knee replacement (Acute 01/16/21) Asymmetrical sensorineural hearing loss (Acute) Bacteremia (Acute) Advance care planning (Acute) Infection of total right knee replacement (Acute) S/p irrigation and debridement; poly exchange; arthrotomy repair DOS: 10/04/2021 Sepsis (Acute) DVT prophylaxis (Acute) Onychomycosis (Acute) Asymmetrical sensorineural hearing loss (Acute) Impairment of speech discrimination (Acute) Left sided sciatica (Acute) Diabetic neuropathy (Acute) Foot drop, bilateral (Acute) Bilateral hand numbness (Acute) Carpal tunnel syndrome of left wrist (Acute) Lumbar stenosis (Acute) Nail dystrophy (Acute) Pneumonia (Acute) Ulcer of extremity due to chronic venous insufficiency (Acute) Impacted cerumen, bilateral (Acute) Atherosclerosis of [place] arteries of right leg with ulceration of ankle (Acute) Controlled type 2 diabetes mellitus with ulcer of toe (Acute) Ulcer of right foot with fat layer exposed (Acute) Venous insufficiency of both lower extremities (Acute) Onychogryphosis (Acute) Medical History Paresthesias Fatty infiltration of liver Erectile dysfunction Foot drop Unsteady gait History of removal of joint prosthesis of right knee due to infection CKD (chronic kidney disease), stage III Microalbuminuria Diabetic polyneuropathy Morbid obesity Sleep apnea BPH (benign prostatic hyperplasia) Myalgia Perennial allergic rhinitis Vertigo Palliative care patient Hearing loss Chronic lower back pain Osteoarthritis Venous insufficiency Sleep apnea with use of continuous positive airway pressure (CPAP) History of seizures as a child Hx of myocardial infarction 10/2011 STRESS TEST COMPLETED 11/29/2019 Hyperlipidemia CAD (coronary artery disease) Cellulitis RIGHT LOWER LEG Diabetes Arthritis Surgical History History of total left hip arthroplasty (07/29/23) Carpal tunnel syndrome of right wrist S/P ECTR: 10/28/2022 H/O total knee replacement left knee 12/14/2019, right knee 01/16/2021 History of tonsillectomy and adenoidectomy H/O heart artery stent X2 2014 colonoscopy (09/02/16) Family History Maternal Aunt Colon cancer Maternal Aunt Colon cancer Father , 70s Heart disease Mother Lung cancer Brother Liver failure Son , tractor accident Accident caused by farm tractor Social History Smoking/Tobacco Use Status: Never Smoking risk assessment performed?: Yes Alcohol Intake: never Drug use: Never Substance use type: does not use Housing: house Do you feel safe at home: Yes Do you feel safe in your relationship?: Yes Additional Social history: unable to assess to privately Exam Extrem Other: Bilateral lower extremity physical exam: Derm: Full-thickness ulceration measuring approximately 3.5 x 3.1 x 0.7 cm with a central area 1.5 x 0.8 bone exposed, mild periwound erythema and there is edema noted mild purulence noted from the wound there is warmth noted to the foot. The base of the wound is 50% granular and 50% necrotic centrally there is bone exposed as well as fascia, periwound there is hyperkeratotic tissue there is mild erythema and there is no odor noted no proximal streaking or lymphangitis noted, there is tunneling noted circumferentially around the wound. No crepitus no bogginess noted. Skin is otherwise warm dry and supple with a small full-thickness ulceration noted to the tip of the left fifth toe. No evidence for ulcerations noted to the right foot. Vascular: DP PT pulses are nonpalpable bilaterally there is edema noted bilaterally. Hair growth absent bilaterally venous skin changes noted bilaterally. Skin is cool from the toes however warm proximally. MSK: There is tenderness to palpation noted to the left fifth metatarsal base area where the wound is. Otherwise muscle strength is normal and symmetrical for age. Pes planus foot type noted bilaterally. Neuro: Light touch sensation absent bilaterally. Patient uses a walker for ambulation. Does report paresthesias bilaterally. Results Last Vital Signs Temp 96.8 F L 02/04/24 07:37 Pulse 71 02/04/24 07:37 Resp 18 02/04/24 07:37 BP 156/75 H 02/04/24 07:37 Pulse Ox 98 02/04/24 07:37 Labs 02/04/24 06:25 02/04/24 06:25 Labs: Laboratory Results - last 24 hr 02/03/24 02/04/24 13:00 06:25 WBC 7.43 5.95 RBC 4.79 5.06 Hgb 11.6 L 12.2 L Hct 37.3 L 39.0 L MCV 78 L 77 L MCH 24.2 L 24.1 L MCHC 31.1 L 31.3 L RDW 18.6 H 18.6 H Plt Count 204 227 MPV 9.4 9.3 Immature Gran % 0.4 Neutrophils % 85.8 Lymphocytes % 5.9 Monocytes % 5.9 Eosinophils % 1.5 Basophils % 0.5 Nucleated RBC % 0.0 Absolute Neutrophils 6.37 Absolute Lymphocytes 0.44 L Absolute Monocytes 0.44 Absolute Eosinophils 0.11 Absolute Basophils 0.04 ESR 54 H PT 11.4 H INR 1.1 APTT 28.0 Sodium 135 L 138 Potassium 4.9 5.0 Chloride 100 103 Carbon Dioxide 24.6 24.8 Anion Gap 10.4 10.2 BUN 52 H 41 H Creatinine 1.8 H 1.5 H Est GFR (CKD-EPI 2020) 37.35 46.48 Glucose 127 H 118 H Calcium 9.0 9.7 Magnesium 1.6 L 1.8 Total Bilirubin 0.4 AST 37 ALT 34 Alkaline Phosphatase 126 H C-Reactive Protein 11.81 H Total Protein 7.4 Albumin 3.0 L Procalcitonin 0.1 Imaging Imaging Studies: Patient Name: Kurtis Alanis Unit #: [id number] Loc: ER Ordering Provider: Salazar Foley M.D. Status: REG ER Primary Care Provider: Cameron Mcarthur M.D. Date of Exam: 02/03/24 Sex: M Admission Date: 02/03/24 : 1945 Age: 79 Exam(s) XR FOOT LT COMPLETE EXAM: XR FOOT LT COMPLETE CLINICAL HISTORY: ?osteo. TECHNIQUE: 2D digital imaging was performed. Three views. COMPARISON: CR XR FOOT LT COMPLETE from 12/30/2023 CR XR FOOT LT COMPLETE from 01/26/2024 MR MR LOWER EXTREMITY LT WO/W from 02/03/2024 FINDINGS: BONES: No acute fracture is present. No bony destructive lesion is seen. JOINTS: No dislocation present. SOFT TISSUE: Soft tissue swelling throughout the foot. Soft tissue wound seen laterally near the base of the 5th metatarsal. Increasing erosion at the base of the 4th and 5th metatarsals. Metallic foreign body again noted near cuboid. IMPRESSION: Increased erosions at the base of the 4th and 5th metatarsals. Findings suspicious for osteomyelitis. Patient Name: Kurtis Alanis Unit #: [id number] Loc: ER Ordering Provider: Salazar Foley M.D. Status: REG ER Primary Care Provider: Cameron Mcarthur M.D. Date of Exam: 02/03/24 Sex: M Admission Date: 02/03/24 : 1945 Age: 79 Exam(s) MR LOWER EXTREMITY LT WO/W CLINICAL HISTORY: ?osteo, ?abscess. TECHNIQUE: Multiplanar multisequence MRI was performed. CONTRAST MATERIAL: IV Contrast: 20 mL of Dotarem contrast administered. COMPARISON: MRI foot January 23 FINDINGS: BONES/JOINTS: No fracture or contusion pattern. Abnormal high signal in the base of the 5th metatarsal and up to the mid metatarsal shaft. Erosion again noted at base of 5th metatarsal. High signal also seen at base of 4th metatarsal also cystic area. This of 3rd metatarsal also shows erosion. Some enhancement present, this was not present previously. Cuboid is difficult to evaluate due to artifact from metallic fragment. SOFT TISSUES: Soft tissue wound seen adjacent to the base of the 5th metatarsal small adjacent fluid collection.. Postcontrast enhancement within the soft tissues. Small abscesses in the lateral subcutaneous fat. Metallic artifact again noted in lateral soft tissues, at the level of the cuboid.. ENHANCEMENT: No suspicious enhancement identified. IMPRESSION: Suspicious for osteomyelitis involving the proximal half of 5th metatarsal as well as the base of the 4th 4th metatarsal. Question erosion at base of 3rd metatarsal. Small abscesses in the subcutaneous tissues of the lateral and plantar aspect of the foot. Findings called to Dr. Hall of the emergency department.
[2024-02-04] MEDS: Lactated Ringers 1,000 ML 30 ML IV (09:40)
--- NOTE | 2024-02-04 10:03 | PDOC.CMIN ---
Date of service: 02/04/24 Care Management Initial Assmt Initial Assessment REASON FOR HOSPITALIZATION:: Left infected diabetic foot wound PREVIOUS FUNCTIONAL STATUS/SOCIAL/FAMILY SUPPORTS:: Kurtis lives in [place] with Jessica. He has a daughter Amrita and a son in law Nasir that lives closely and are involved. 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 Nasir is able to perform most ADLs at baseline. CURRENT FUNCTIONAL STATUS:: Kurtis was sitting up in a chair visiting with Jessica. They described getting HH RN services three times a week who seen that Dorcas foot wound was not getting better and recommended he should be identified. 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 Per request CM provided on file advanced directives. CM interaction brief since a family member came to visit. CM following. ADVANCE DIRECTIVES:: On File Jessica Alanis ROSI Amrita Silverio alternate. Provided copy per request. Has patient been provided with info about the portal/API?: Yes Did the patient sign up for the portal?: Yes CODE STATUS:: Full Code INSURANCE COVERAGE / FINANCIAL ISSUES:: [place] [employer] CURRENT HOME/COMMUNITY SERVICES/EQUIPMENT:: HH PT, 4WW PRIMARY CARE PHYSICIAN:: Cameron Mcarthur M.D PATIENT/FAMILY EDUCATION NEEDS:: Review discharge instructions and limitations, discussion of self care needs including Ask Me Three ANTICIPATED BARRIERS TO DISCHARGE:: None TRANSPORTATION:: Via private vehicle by family PLAN:: Kurtis will transport home once medically cleared via private vehicle. He will follow up with his PCP and discharge plan of care. He will resume HH RN and PT. CM will continue to follow. PFSH All Active Problems (Updated 02/04/24 @ 14:22 by Annetta Downey APRN) Constipation (Acute) On deep vein thrombosis (DVT) prophylaxis (Acute) Atherosclerosis of left lower extremity with ulceration (Acute) Diabetic foot infection (Acute) Atherosclerosis of lower extremity with ulceration (Acute) Atherosclerosis of artery of both lower extremities (Acute) Ulcer of left foot with fat layer exposed (Acute) Osteomyelitis of left foot (Acute) Restless leg syndrome (Acute) DVT (deep venous thrombosis) (Chronic) Venous ulcer-leg syndrome, bilateral (Acute) Onychogryphosis (Acute) Venous insufficiency of both lower extremities (Acute) Ulcer of right foot with fat layer exposed (Acute) Controlled type 2 diabetes mellitus with ulcer of toe (Acute) Atherosclerosis of [place] arteries of right leg with ulceration of ankle (Acute) Impacted cerumen, bilateral (Acute) Ulcer of extremity due to chronic venous insufficiency (Acute) Pneumonia (Acute) Nail dystrophy (Acute) Lumbar stenosis (Acute) Carpal tunnel syndrome of left wrist (Acute) Bilateral hand numbness (Acute) Foot drop, bilateral (Acute) Diabetic neuropathy (Acute) Left sided sciatica (Acute) Impairment of speech discrimination (Acute) Asymmetrical sensorineural hearing loss (Acute) Onychomycosis (Acute) DVT prophylaxis (Acute) Sepsis (Acute) Infection of total right knee replacement (Acute) S/p irrigation and debridement; poly exchange; arthrotomy repair DOS: 10/04/2021 Advance care planning (Acute) Bacteremia (Acute) Asymmetrical sensorineural hearing loss (Acute) History of total right knee replacement (Acute 01/16/21) First degree heart block (Acute) Discharge planning issues (Acute) DVT prophylaxis (Acute) Cellulitis (Acute) History of total left knee replacement (TKR) (Acute 12/14/19) Dr. Wilson s/p debridement and poly exchange 02/10/20 Renal insufficiency (Chronic) Hypertension (Chronic) Tubular adenoma of colon (Acute 09/02/16) Low blood magnesium (Acute 11/01/13) Tubulovillous adenoma polyp of colon (Chronic) Noted by colonoscopy. Chest pain, rule out acute myocardial infarction (Acute 11/01/13) Abnormal LFTs (Chronic) Secondary to fartty infiltrate of the liver. Diabetic renal disease (Chronic) Benign hypertension (Chronic) Obesity (Chronic) Benign prostatic hyperplasia (Chronic) Obstructive sleep apnea syndrome (Chronic) Nocturnal CPAP Hyperlipidemia (Chronic) Diabetes mellitus type 2 (Chronic) Since approximately 1997. On insulin thereapy. Last hemoglobin A1c 6.5% March 2013. 11-01-2013: Most recent hemoglobin A1c was 6.6 ? date. Medical History Paresthesias Fatty infiltration of liver Erectile dysfunction Foot drop Unsteady gait History of removal of joint prosthesis of right knee due to infection CKD (chronic kidney disease), stage III Microalbuminuria Diabetic polyneuropathy Morbid obesity Sleep apnea BPH (benign prostatic hyperplasia) Myalgia Perennial allergic rhinitis Vertigo Palliative care patient Hearing loss Chronic lower back pain Osteoarthritis Venous insufficiency Sleep apnea with use of continuous positive airway pressure (CPAP) History of seizures as a child Hx of myocardial infarction 10/2011 STRESS TEST COMPLETED 11/29/2019 Hyperlipidemia CAD (coronary artery disease) Cellulitis RIGHT LOWER LEG Diabetes Arthritis Surgical History History of total left hip arthroplasty (07/29/23) Carpal tunnel syndrome of right wrist S/P ECTR: 10/28/2022 H/O total knee replacement left knee 12/14/2019, right knee 01/16/2021 History of tonsillectomy and adenoidectomy H/O heart artery stent X2 2014 colonoscopy (09/02/16) Family History Maternal Aunt Colon cancer Maternal Aunt Colon cancer Father , 70s Heart disease Mother Lung cancer Brother Liver failure Son , tractor accident Accident caused by farm tractor Social History Smoking/Tobacco Use Status: Never Smoking risk assessment performed?: Yes Alcohol Intake: never Drug use: Never Substance use type: does not use Housing: house Do you feel safe at home: Yes Do you feel safe in your relationship?: Yes Additional Social history: unable to assess to privately SDOH(Care Management) Screening Will the Patient Participate in the Screening?: Yes Do you worry about having a steady place to live?: no Problems where you live: pests such as bugs, ants or mice, mold, lead paints of pipes and water leaks In the past 12 months, have you had to go without electric, gas, oil or water in your home?: no Have you or anyone in your house had to go without enough food to eat?: no Has lack of transportation kept you from medical appointments or from doing things needed for daily living?: no Has anyone in your support network made you feel unsafe for any reason?: no Health Related Social Needs Health related social needs: inadequate housing(Z59.1) Health related social needs details: old farm house
--- NOTE | 2024-02-04 11:33 | W.BRIEF ---
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 Will require further vascular testing. Rec CTA with runoff
--- NOTE | 2024-02-04 11:47 | PGE_ITS ---
Date of Service Date of service: 02/04/24 Time of Service: 11:47 Assessment and Plan Assessment and plan (1) Diabetic foot infection: Status: Acute Assessment and plan: -Chronic left foot infection failing outpatient oral antibiotic therapy -Recommendation from ID from [facility]: IV antibiotics - 2 g of cefepime every 12 hours, daptomycin 750 mg daily, and oral Flagyl 500 mg 3 times daily -MRI of the left foot showed abscess and most likely osteomylitis. Followed by podiatry. -Podiatry: OR today for I&D left foot abscess; watching for response to antibiotics and vascular studies to determine resection of the 5th metatarsal bone -Blood cultures and wound cultures results are pending -CBC in AM -CRP and ESR in AM (2) Diabetic neuropathy: Status: Acute Assessment and plan: - On home dose Lyrica (3) Hypertension: Status: Chronic Assessment and plan: - On home dose of carvedilol, losartan, and hydrochlorothiazide (4) Renal insufficiency: Status: Chronic Assessment and plan: - Creatinine remains at baseline -BMP in AM (5) Obstructive sleep apnea syndrome: Status: Chronic Assessment and plan: - Continue home CPAP (6) Diabetes mellitus type 2: Status: Chronic Assessment and plan: - Gluc AC and HS, basal insulin once oral intake resumed. -Continue sliding scale insulin -Continue diabetic diet post-surgery (7) Morbid obesity: Assessment and plan: Weight management and lifestyle changes discussed with patient. Patient to continue discussion with PCP. (8) On deep vein thrombosis (DVT) prophylaxis: Status: Acute Assessment and plan: Resume lovenox at HS (9) Discharge planning issues: Status: Acute Assessment and plan: CM to f/u if new need arises. Objective Last Vital Signs Temp 37.2 C 02/04/24 11:42 Pulse 86 02/04/24 11:42 Resp 20 02/04/24 11:42 BP 138/66 02/04/24 11:42 Pulse Ox 99 02/04/24 11:42 Laboratory Results - last 24 hr 02/03/24 02/04/24 13:00 06:25 WBC 7.43 5.95 RBC 4.79 5.06 Hgb 11.6 L 12.2 L Hct 37.3 L 39.0 L MCV 78 L 77 L MCH 24.2 L 24.1 L MCHC 31.1 L 31.3 L RDW 18.6 H 18.6 H Plt Count 204 227 MPV 9.4 9.3 Immature Gran % 0.4 Neutrophils % 85.8 Lymphocytes % 5.9 Monocytes % 5.9 Eosinophils % 1.5 Basophils % 0.5 Nucleated RBC % 0.0 Absolute Neutrophils 6.37 Absolute Lymphocytes 0.44 L Absolute Monocytes 0.44 Absolute Eosinophils 0.11 Absolute Basophils 0.04 ESR 54 H PT 11.4 H INR 1.1 APTT 28.0 Sodium 135 L 138 Potassium 4.9 5.0 Chloride 100 103 Carbon Dioxide 24.6 24.8 Anion Gap 10.4 10.2 BUN 52 H 41 H Creatinine 1.8 H 1.5 H Est GFR (CKD-EPI 2020) 37.35 46.48 Glucose 127 H 118 H Calcium 9.0 9.7 Magnesium 1.6 L 1.8 Total Bilirubin 0.4 AST 37 ALT 34 Alkaline Phosphatase 126 H C-Reactive Protein 11.81 H Total Protein 7.4 Albumin 3.0 L Procalcitonin 0.1 Time Spent with Patient Time Spent with Patient: >50 minutes Time was spent: preparing to see the patient(eg.review tests), obtaining and/or reviewing separately otained hiistory, ordering medications,tests, procedures, referring, communicating with other health palliative care nurse practitioner, indepentently interpreting results, counseling the patient and care coordination
--- NOTE | 2024-02-04 12:06 | W.ANESPOSTOP ---
Postoperative Evaluation Date, Time and Location Date Performed: 02/04/24 Time Performed: 12:07 Patient Location: PACU Vital Signs Most Recent Imported Vital Signs: Most Recent Vital Signs Temp Pulse Resp BP Pulse Ox 37.2 C 86 20 138/66 99 02/04/24 11:42 02/04/24 11:42 02/04/24 11:42 02/04/24 11:42 02/04/24 11:42 Pain Score Most Recent Pain Score: Most Recent Pain Score Pain Level 0 02/04/24 11:42 Assessment Mental Status: Arousable with meaningful communication Airway and Respiratory Function: Patent airway with normal (patient baseline) respiratory exam Cardiovascular Function: Hemodynamically Stable Hydration Status: Adequately Hydrated Nausea & Vomiting: No Nausea or Vomiting Pain: Pt. Denies Any Pain Peripheral Nerve Block: Patient did not receive a nerve block
--- NOTE | 2024-02-04 12:26 | W.PM.OP ---
Date of service: 02/04/24 Time of Service: 10:30 Operative Note Operative Note DATE OF PROCEDURE: 02/04/24 PRE-OP DIAGNOSIS: Abscess, osteomyelitis, left foot POST-OP DIAGNOSIS: same SURGEON: Parvin Li ANESTHESIA TYPE: MAC Refer to Anesthesia Record ESTIMATED BLOOD LOSS: 10 COMPLICATIONS: None Patient was transported to: PACU Patient's condition: stable Implants: None Indications: 79-year-old male patient with ongoing wound since mid November 2023 to the plantar aspect of the left foot with probe to bone and now an abscess. Patient has been on antibiotics and has been started on IV antibiotics as per infectious disease at [facility]. Clinically there is purulence noted to the wound. MRI shows abscess to the left foot plantar and laterally. I discussed the procedure in detail with the patient today. Advised him I recommend an incision and drainage of the abscess and debridement of the wound in the OR. Discussed the risks benefits and possible complications of the procedure in detail with the patient. He was advised that there is risk for delayed healing nonhealing, worsening infection, infection to bone, limb loss, risk for DVT, PE, stroke, ND or even with anesthesia. Patient consented to the procedure. Consent form was signed reviewed in chart. Findings: Very minimal bleeding less than 10 mL today, mild purulence noted from the wound some necrotic tissue noted to the wound bed there is exposed bone from the plantar wound. Procedure Description: Patient was examined in preop holding. Consent form was signed reviewed in chart. Patient was brought to the operating room placed on the operating table in supine position with the anesthesia team. After induction of anesthesia the left lower extremity was scrubbed prepped and draped in the usual aseptic manner. Attention was directed to the plantar aspect of the left foot where a approximately 3.5 x 3.5 cm wound was noted with a necrotic base and mild purulence. Incision was made directly centrally to this wound and deepened to the level of bone there was bone exposed already. Purulence was expressed. Using a freer elevator the wound was explored circumferentially and further purulence was expressed. All necrotic and nonviable tissue was resected excisionally with a sterile #15 blade and pickups and passed from the operative field. Cultures were taken and sent. A 3 cm linear longitudinal incision was made to the lateral aspect of the left foot directly overlying the fourth and fifth metatarsal bases. This incision was deepened to the level of bone. Very mild purulence was expressed. Mild bleeding was noted here. Tissue at the dorsal lateral aspect of the wound is noted to be with minimal necrosis however swollen and with minimal bleeding. Next, both incision sites were irrigated with pulse lavage 3 L saline bag. The wound was then again inspected and explored again no further purulence was noted. The wound was then packed with iodoform gauze, 4 x 4, Kerlix and Eduin wrap was applied. Patient tolerated procedure and anesthesia well advised send stable and vascular status intact to the left lower extremity. Patient was transferred to PACU for further monitoring. He is to be transferred back to the floor when stable. Patient is to keep the left lower extremity elevated at all times. Limit ambulation. Patient is to remain nonweightbearing to the left foot. I recommend CTA with runoff.
--- NOTE | 2024-02-04 13:48 | PHA.REVIEW2 ---
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 (Acute) Diabetic foot infection (Acute) Atherosclerosis of lower extremity with ulceration (Acute) Ulcer of left foot with fat layer exposed (Acute) Osteomyelitis of left foot (Acute) Diabetic neuropathy (Acute) Discharge planning issues (Acute) amlodipine besylate [From Norvasc] Adverse Reaction (Mild, Verified 02/03/24 12:43) edema enalapril maleate [From Vasotec] Adverse Reaction (Mild, Verified 02/03/24 12:43) cough enalaprilat dihydrate [From Vasotec] Adverse Reaction (Mild, Verified 02/03/24 12:43) cough pravastatin sodium [From Pravachol] Adverse Reaction (Mild, Verified 02/03/24 12:43) myalgia from Lipitor rosuvastatin [From Crestor] Adverse Reaction (Mild, Verified 02/03/24 12:43) Myalgia Resuscitation Status Full Code Height 5 ft 8 in Weight 125.191 kg Pharmacy Admission Review Renal Dosing Renal Dosing: BUN 41 mg/dL (7-18) H 02/04/24 06:25 Creatinine 1.5 mg/dL (0.70-1.30) H 02/04/24 06:25 Medications needing adjustments: Reviewed (CrCl 49.78 mL/min) List of meds needing interventions: BUN decreased from 52 to 41 and SCr decreased from 1.8 to 1.5 Anticoagulation Anticoagulation: Hgb 12.2 g/dL (13.5-17.5) L 02/04/24 06:25 Hct 39.0 % (40.0-50.0) L 02/04/24 06:25 Plt Count 227 10^3/uL (130-400) 02/04/24 06:25 INR 1.1 (0.9-1.1) 02/03/24 13:00 Creatinine 1.5 mg/dL (0.70-1.30) H 02/04/24 06:25 DVT Prophylaxis: Intervened Medications: Enoxaparin (40mg q24h. Patients BMI is 42. Reached out to provider about changing to BID) Relevant Labs Relevant Labs: ESR 54 mm/hr (0-20) H 02/03/24 13:00 Sodium 138 mmol/L (136-145) 02/04/24 06:25 Potassium 5.0 mmol/L (3.5-5.1) 02/04/24 06:25 Chloride 103 mmol/L (98-107) 02/04/24 06:25 Magnesium 1.8 mg/dL (1.8-2.4) 02/04/24 06:25 C-Reactive Protein 11.81 mg/dL (<or=0.5) H 02/03/24 13:00 Electrolytes, C-Reactive P, ESR: Reviewed (Hgb increased from 11.6 to 12.2) DM Control DM Control: Glucose 118 mg/dL (74-106) H 02/04/24 06:25 Finger Stick Blood Glucose 112 1143 Finger Stick Blood Glucose 112 1137 Finger Stick Blood Glucose 112 1137 DM Control: Reviewed Insulin Dosing, Diabetic Medication: Has order for SS insulin Cardiac Review Cardiac Review: Blood Pressure 158/76 1330 Blood Pressure 117/65 1300 Blood Pressure 117/68 1245 Blood Pressure 165/74 1230 Blood Pressure 144/77 1215 Blood Pressure 143/80 1200 Blood Pressure 138/66 1142 Blood Pressure 124/57 1137 Blood Pressure 155/73 1132 Blood Pressure 130/72 1127 Blood Pressure 156/75 0737 Blood Pressure 159/75 0419 BP, HR, EF%: Reviewed (BP 158/76 and HR 99) QTc Review QTc: Reviewed (Last EKG on file was 12/05/22 with QTc of 443) IV to PO Switch IV Medications: Reviewed (Cefepime and daptomycin ) Home Meds Home Med List reviewed: Intervened Relevent Home Meds Not ordered & why?: No orders have been put in for patients home meds. Reached out to provider as progress note states to continue home meds. Waiting on reply. Had nursing confirm with patient if he takes baclofen, metformin and ferrous sulfate at home (fill history but not on home med list). Patient confirms he does take these, meds were added to home med list. Current Meds Current Medication Order Review: Reviewed Pharmacy Antibiotic Review Relevant Labs: Relevant Labs 02/03/24 13:00 C-Reactive Protein 11.81 H Procalcitonin 0.1 Pharmacy Antibiotic Activity: C/S review and Reviewed, no change Comments: Patient is currently on cefepime 2g q12h, daptomycin 750mg q24h and metronidazole 500mg PO TID day 2. Blood cultures pending, foot culture from sugery pending, initial culture from foot growing gram positive shannen. Temperature of 37.6 at 1330.
--- NOTE | 2024-02-04 14:10 | W.PM.PROGNOT ---
Date of Service Date of service: 02/04/24 Time of Service: 11:47 Assessment and Plan Assessment and plan (1) Diabetic foot infection: Status: Acute Assessment and plan: -Chronic left foot infection failing outpatient oral antibiotic therapy -Re[place] [facility] antibiotics - 2 g of cefepime every 12 hours, daptomycin 750 mg daily, and oral Flagyl 500 mg 3 times daily -Probiotics: Bio-k Plus oral daily -MRI of the left foot showed abscess and most likely osteomylitis. Followed by podiatry. -Podiatry: OR today for I&D left foot abscess; watching for response to antibiotics and vascular studies to determine resection of the 5th metatarsal bone -Blood cultures and wound cultures results are pending -CBC in AM -CRP and ESR in AM -Flow study ordered after discussion with Dr. Li-CTA aorta abd with runoff -Midline consultation ordered and discussed for placement with PICC team. (2) Diabetic neuropathy: Status: Acute Assessment and plan: - On home dose Lyrica (3) Hypertension: Status: Chronic Assessment and plan: - On home dose of carvedilol, losartan, and hydrochlorothiazide (4) Renal insufficiency: Status: Chronic Assessment and plan: - Creatinine remains at baseline -BMP in AM (5) Obstructive sleep apnea syndrome: Status: Chronic Assessment and plan: - Continue home CPAP (6) Diabetes mellitus type 2: Status: Chronic Assessment and plan: - Gluc AC and HS, basal insulin once oral intake resumed. -Continue sliding scale insulin -Continue diabetic diet post-surgery (7) Morbid obesity: Assessment and plan: Weight management and lifestyle changes discussed with patient. Patient to continue discussion with PCP. (8) On deep vein thrombosis (DVT) prophylaxis: Status: Acute Assessment and plan: Resume lovenox at HS (9) Constipation: Status: Acute Assessment and plan: -Start scheduled oral Docusate (10) Discharge planning issues: Status: Acute Assessment and plan: CM to f/u if new need arises. Consideration to be given to probalble terminal make up operator antibiotics most likely 6-week course discussed with Dr. Santoro Subjective Subjective Patient reports: no new complaints, feels better, voiding w/o difficulty, flatus and no bowel movement (X2 days ); denies still having pain, diarrhea, nausea, vomiting, shortness of breath or fever Exam Narrative Exam Narrative: Constitutional The patient is sitting in chair without acute distress and has obese body habitus. HENMT: Head is atraumatic, normocephalic, no lymphadenopathy. Facial structures with normal appearance. Eyes: Well aligned, intact ROM Neuro:alert and oriented to self, person, place time and situation. No neurological focal deficit Chest:Chest is symmetrical and normal appearance Resp: Normal respiratory pattern, speaks in full sentences, unlabored breathing, clear lung bilaterally Cardio: regular rhythm, S1, S2, bilateral radial and right dorsalis pedis pulse is positive, left foot with cap refill to toes of < 3 sec but unable to feel a definitive pulse, CTA pending GI: Abdomen is large not distended, soft and non tender, bowel sounds are present : Negative Costovertebral angle tenderness, no bladder distension Back/spine/Pelvis: No back tenderness Integumentary:discoloration to LEs Psych: RASS 0, congruent mood and normal affect. Objective Last Vital Signs Temp 37.4 C 02/04/24 14:00 Pulse 78 02/04/24 14:00 Resp 18 02/04/24 14:00 BP 126/62 02/04/24 14:00 Pulse Ox 96 02/04/24 14:00 Laboratory Results - last 24 hr 02/04/24 06:25 WBC 5.95 RBC 5.06 Hgb 12.2 L Hct 39.0 L MCV 77 L MCH 24.1 L MCHC 31.3 L RDW 18.6 H Plt Count 227 MPV 9.3 Sodium 138 Potassium 5.0 Chloride 103 Carbon Dioxide 24.8 Anion Gap 10.2 BUN 41 H Creatinine 1.5 H Est GFR (CKD-EPI 2020) 46.48 Glucose 118 H Calcium 9.7 Magnesium 1.8 Time Spent with Patient Time Spent with Patient: >50 minutes Time was spent: preparing to see the patient(eg.review tests), obtaining and/or reviewing separately otained hiistory, ordering medications,tests, procedures, referring, communicating with other health occasional caregiver, indepentently interpreting results, counseling the patient and care coordination
[2024-02-04] MEDS: Acetaminophen 325 MG TAB PO (15:07)
--- NOTE | 2024-02-04 16:12 | CHAPLAIN ---
I had a brief visit with Kurtis today. He was up in the recliner visiting with his , Jessica. I explained my role and offered support.
[2024-02-04] MEDS: Insulin Aspart 300 UNITS/3 ML PEN SC (17:24)
[2024-02-04] MEDS: Omnipaque 350 MG/ML 100 ML BTL IJ (18:15)
[2024-02-04] MEDS: Omnipaque 350 MG/ML 50 ML BTL IJ (18:16)
[2024-02-04] MEDS: Normal Saline - Diluent 50 ML VIAL IJ (18:17)
[2024-02-04] MEDS: Lactated Ringers 1,000 ML 100 ML IV (19:04)
[2024-02-04] MEDS: Enoxaparin 40 MG/0.4 ML SYR SC (19:05)
[2024-02-04] MEDS: Docusate Sodium 100 MG CAP PO (19:06)
--- NOTE | 2024-02-04 19:25 | TELEP.MEDR_ITS ---
Date of service: 02/04/24 Time of Service: 19:26 [facility] All[facility]ies Allergies: amlodipine besylate [From Norvasc] Adverse Reaction (Mild, Verified 02/03/24 12:43) edema enalapril maleate [From Vasotec] Adverse Reaction (Mild, Verified 02/03/24 12:43) cough enalaprilat dihydrate [From Vasotec] Adverse Reaction (Mild, Verified 02/03/24 12:43) cough pravastatin sodium [From Pravachol] Adverse Reaction (Mild, Verified 02/03/24 12:43) myalgia from Lipitor rosuvastatin [From Crestor] Adverse Reaction (Mild, Verified 02/03/24 12:43) Myalgia Interview Person Interviewed: Patient Quality Quality of Interview/Accuracy of Medication List: Excellent Changes made to Home Medication List: CHANGES: Tylenol: changed to PRN ketoconazole: changed to PRN Additional Notes Additional Notes: Patient reports he did not take any of his medications today. Recommended Changes Attestation: The home medication list is now updated to the best of my knowledge and is ready to be reconciled by the provider. Please contact the [facility] Medication Reconciliation Pharmacist at for any questions.
[2024-02-04] MEDS: rOPINIRole 0.5 MG TAB 2 MG PO (22:17)
[2024-02-04] MEDS: Pregabalin 100 MG CAP 200 MG PO (22:17)
[2024-02-05] MEDS: CEFEPIME 2 GM in Normal Saline 100 ML IVPB ×2 (02:30→14:16)
[2024-02-05 03:21] VITALS: BP 138/75; PULSE 68; RESP 18; TEMP 36.2; O2SAT 96
[2024-02-05] MEDS: Lactated Ringers 1,000 ML 100 ML IV (05:26)
[2024-02-05 07:06] VITALS: BP 150/83; PULSE 59; RESP 18; TEMP 35.4; O2SAT 99
[2024-02-05 07:18] LABS: Abs Immature Grans 0.06 10^3/uL (0.0-0.06); Absolute Basophil Count 0.02 10^3/uL (0.0-0.2); Absolute Lymphocyte Count 0.27 10^3/uL (1.2-3.4); Absolute Monocyte Count 0.53 10^3/uL (0.1-0.8); Absolute Neutrophil Count 8.02 10^3/uL (1.2-6.7); Basophils % 0.2; HCT 39.9 % (40.0-50.0); HGB 12.6 g/dL (13.5-17.5); Immature Grans % 0.7; MCH 24.3 pg (27.0-33.0); MCHC 31.6 % (32.0-36.0); MCV 77 fL (80-95); MPV 9.2 fL (8.0-11.0); Neutrophils % 90.1; Platelet Count 251 10^3/uL (130-400); RBC 5.18 10^6/uL (4.36-5.78); RDW 18.6 % (11.8-14.1); RDW-SD 51.6 fL
[2024-02-05 07:25] LABS: ESR 52 mm/hr (0-20)
[2024-02-05 07:44] LABS: Anion Gap 10.8 mmol/L (3-11); BUN 39 mg/dL (7-18); C-Reactive Protein 12.73 mg/dL (<or=0.5); CO2 27.2 mmol/L (21.0-32.0); CREATININE 1.6 mg/dL (0.70-1.30); Calcium 9.7 mg/dL (8.5-10.1); Chloride 101 mmol/L (98-107); Estimated GFR 43.02 (mL/min/1.73m2); Glucose 152 mg/dL (74-106); Magnesium 1.9 mg/dL (1.8-2.4); Potassium 5.1 mmol/L (3.5-5.1); Sodium 139 mmol/L (136-145)
[2024-02-05] MEDS: Normal Saline Flush 10 ML SYR IVP ×3 (08:46→21:18)
[2024-02-05] MEDS: Lactobacillus Acidophilus CAP 1 CAP PO (08:46)
[2024-02-05] MEDS: Enoxaparin 40 MG/0.4 ML SYR SC ×2 (08:46→19:10)
[2024-02-05] MEDS: metroNIDAZOLE 500 MG TAB PO ×3 (08:47→19:10)
[2024-02-05] MEDS: Docusate Sodium 100 MG CAP PO ×3 (08:47→19:10)
[2024-02-05] MEDS: Pregabalin 100 MG CAP PO (08:48)
[2024-02-05] MEDS: Polyethylene Glycol 3350 17 GM PACKET PO (08:52)
--- NOTE | 2024-02-05 08:56 | CMPROGNOTE_ITS ---
Date of service: 02/05/24 Care Management Progress Note Progress Note Text Progress Note Text: S/O: Kurtis was sitting up in a chair when meeting with CM. CM went over IV antibiotic options. Kurtis explained he has had a PICC line two other times with antibiotics at home through [facility]. CM relayed that UNIVERSITY ADMINISTRATOR Annetta is working with [facility] consult on the treatment course. Kurtis said having home IV ABX is his preference. He also says he has a [facility] appt 02/09/24 that he has been told her can not miss so hopes to be discharged before this date. Awaiting culture studies and [facility] ID consult to determine IV ABX treatment recommendations and duration. A: Kurtis is an 79 year old male admitted to [facility] 02/03/24 for a left infected diabetic foot wound. P Kurtis will transport home once medically cleared via private vehicle. He will follow up with his PCP and discharge plan of care. He will resume HH RN and PT with new IV antibiotics at home. CM will continue to follow. SDOH(Care Management) Screening Will the Patient Participate in the Screening?: Yes Do you worry about having a steady place to live?: no Problems where you live: pests such as bugs, ants or mice, mold, lead paints of pipes and water leaks In the past 12 months, have you had to go without electric, gas, oil or water in your home?: no Have you or anyone in your house had to go without enough food to eat?: no Has lack of transportation kept you from medical appointments or from doing things needed for daily living?: no Has anyone in your support network made you feel unsafe for any reason?: no Health Related Social Needs Health related social needs: inadequate housing(Z59.1) Health related social needs details: old farm house
--- NOTE | 2024-02-05 09:20 | W.PM.PROGNOT ---
Date of Service Date of service: 02/05/24 Time of Service: 09:20 Assessment and Plan Assessment and plan (1) Diabetic foot infection: Status: Acute Assessment and plan: -Chronic left foot infection failing outpatient oral antibiotic therapy -Recommendation from ID from [facility] [place]: IV antibiotics - 2 g of cefepime every 12 hours, daptomycin 750 mg daily, and oral Flagyl 500 mg 3 times daily -Probiotics: Bio-k Plus oral daily -MRI of the left foot showed abscess and most likely osteomylitis. Followed by podiatry. -Blood cultures and wound cultures results are pending -CBC in AM -CRP and ESR on 02/05 -CTA w runoff results: -IMPRESSION: Atherosclerotic changes causing [id number] stenosis in both lower extremities. The vessels of the ankles and feet appear patent. Soft Tissues: Soft tissue edema severe over the dorsal lateral aspect of the foot. Air in this area as well as some high density material which may represent packing. Erosions at the bases of the 4th and 5th metatarsals. Findings consistent with osteomyelitis. There is bilateral lower extremity edema -Podiatry:after discussion with Dr. Li regarding the CTA aorta abd with run off results will plan for 6-week course of antibiotics and adjust as per Dr. Servin for ID at [facility] as cultures are resulted. We want to maintain the vascular appointment the patient has at [facility] on Thursday -Considering the need for cefepime as wound is showing GPC mixed shannen and blood cultures are negative at 24 hours in the setting where the patient is also receiving Daptomycin IV and flagyl orally. Will await for cultures results from the wound C&S collected by Dr. Li on 02/03 as per discusssion with Dr. Servin from ID, to possibly narrow the choice of cephalosporin. -Midline completed on 02/02: PICC team aware and available to switch midline to PICC on Thursday prior to probable discharge for 6-week course of antibiotics . (2) Diabetic neuropathy: Status: Acute Assessment and plan: -Continue s home dose Lyrica (3) Hypertension: Status: Chronic Assessment and plan: - Continue home dose of carvedilol, losartan, and hydrochlorothiazide (4) Renal insufficiency: Status: Chronic Assessment and plan: - Creatinine minimally higher from 1.5 to 1.6 after CTA on 02/03 -Encourage oral hydration -Stop IVF -BMP in AM (5) Obstructive sleep apnea syndrome: Status: Chronic Assessment and plan: - On home CPAP as per home settings (6) Diabetes mellitus type 2: Status: Chronic Assessment and plan: -Gluc AC and HS, basal insulin once oral intake resumed. -Continue sliding scale insulin -Continue diabetic diet (7) Morbid obesity: Assessment and plan: -Previously discussed with spouse and patient: Weight management and lifestyle changes discussed with patient. -Exercise bike at home in the setting of osteomyelitis: hold until infection is controlled-PT consult -IS -Further discussion with PCP as an OPT (8) On deep vein thrombosis (DVT) prophylaxis: Status: Acute Assessment and plan: Resume lovenox at HS (9) Constipation: Status: Acute Assessment and plan: -Continue scheduled oral Docusate (10) Discharge planning issues: Status: Acute Assessment and plan: -CM to f/u : Home with HH VS OPT infusion; Patient verbalized his preference for home antibiotic infusion with home health stating that he went through this process once -Consideration to be given to probable terminal superintendent antibiotics most likely 6-week course. -Probable discharge on Thursday and OPT vascular at [facility] on Thursday. Discussed with Dr. Santoro Subjective Subjective Patient reports: no new complaints, feels better, tolerating liquids well, tolerating a regular diet, voiding w/o difficulty, flatus and no bowel movement; denies diarrhea, nausea, vomiting, shortness of breath or fever Exam Narrative Exam Narrative: Constitutional The patient is sitting in chair without acute distress and has obese body habitus. HENMT: Facial structures with normal appearance. Neuro:alert and oriented to self, person, place time and situation. No neurological focal deficit Resp: Normal respiratory pattern, clear lung bilaterally, diminished bases Cardio: regular rhythm, S1, S2, cap refill to toes of < 3 sec GI: Abdomen is large not distended, soft and non tender, bowel sounds are present : Negative Costovertebral angle tenderness Integumentary:discoloration to LEs, left foot wound dressing is CDI Psych: RASS 0, congruent mood and normal affect. Objective Last Vital Signs Temp 35.4 C L 02/05/24 07:06 Pulse 59 L 02/05/24 07:06 Resp 18 02/05/24 07:06 BP 150/83 H 02/05/24 07:06 Pulse Ox 99 02/05/24 07:06 Laboratory Results - last 24 hr 02/05/24 07:03 WBC 8.90 RBC 5.18 Hgb 12.6 L Hct 39.9 L MCV 77 L MCH 24.3 L MCHC 31.6 L RDW 18.6 H Plt Count 251 MPV 9.2 Immature Gran % 0.7 Neutrophils % 90.1 Lymphocytes % 3.0 Monocytes % 6.0 Eosinophils % 0.0 Basophils % 0.2 Nucleated RBC % 0.0 Absolute Neutrophils 8.02 H Absolute Lymphocytes 0.27 L Absolute Monocytes 0.53 Absolute Eosinophils 0.00 Absolute Basophils 0.02 ESR 52 H Sodium 139 Potassium 5.1 Chloride 101 Carbon Dioxide 27.2 Anion Gap 10.8 BUN 39 H Creatinine 1.6 H Est GFR (CKD-EPI 2020) 43.02 Glucose 152 H Calcium 9.7 Magnesium 1.9 C-Reactive Protein 12.73 H Time Spent with Patient Time Spent with Patient: >50 minutes Time was spent: preparing to see the patient(eg.review tests), obtaining and/or reviewing separately otained hiistory, ordering medications,tests, procedures, referring, communicating with other health career counselor, indepentently interpreting results, counseling the patient and care coordination
[2024-02-05] MEDS: Water,Injection,Sterile 10 ML VIAL (11:05)
[2024-02-05] MEDS: Alteplase 2 MG VIAL IJ (11:05)
[2024-02-05 11:15] VITALS: BP 157/81; PULSE 60; RESP 18; TEMP 35.3; O2SAT 96
[2024-02-05] MEDS: Insulin Aspart 300 UNITS/3 ML PEN SC ×2 (12:13→16:30)
--- NOTE | 2024-02-05 13:18 | IN_ITS ---
PT Notes Visit Reasons: Left Infected diabetic foot wound Physical Therapy Inpatient Initial Evaluation Date: 02/05/2024 Referring Doctor: Annetta Downey APRN PT Orders: PT CONSULT: Limited ability Precautions: Fall. Contact precautions in place. Per Dr. Li as of 02/04/2024: Non-weight bearing on the L LE with AD. Patient Profile/Admitting Diagnosis: Kurtis is an 78-year-old male with degenerative joint disease of the left hip and is status post left total hip arthroplasty on postoperative day 0. Colin Duke MD PMHX: All Active Problems Diabetic foot infection (Acute) Atherosclerosis of lower extremity with ulceration (Acute) Atherosclerosis of artery of both lower extremities (Acute) Ulcer of left foot with fat layer exposed (Acute) Osteomyelitis of left foot (Acute) Restless leg syndrome (Acute) DVT (deep venous thrombosis) (Chronic) Venous ulcer-leg syndrome, bilateral (Acute) Onychogryphosis (Acute) Venous insufficiency of both lower extremities (Acute) Ulcer of right foot with fat layer exposed (Acute) Controlled type 2 diabetes mellitus with ulcer of toe (Acute) Atherosclerosis of [place] arteries of right leg with ulceration of ankle (Acute) Impacted cerumen, bilateral (Acute) Ulcer of extremity due to chronic venous insufficiency (Acute) Pneumonia (Acute) Nail dystrophy (Acute) Lumbar stenosis (Acute) Carpal tunnel syndrome of left wrist (Acute) Bilateral hand numbness (Acute) Foot drop, bilateral (Acute) Diabetic neuropathy (Acute) Left sided sciatica (Acute) Impairment of speech discrimination (Acute) Asymmetrical sensorineural hearing loss (Acute) Onychomycosis (Acute) DVT prophylaxis (Acute) Sepsis (Acute) Infection of total right knee replacement (Acute) S/p irrigation and debridement; poly exchange; arthrotomy repair DOS: 10/04/2021 Advance care planning (Acute) Bacteremia (Acute) Asymmetrical sensorineural hearing loss (Acute) History of total right knee replacement (Acute 01/16/21) First degree heart block (Acute) Discharge planning issues (Acute) DVT prophylaxis (Acute) Cellulitis (Acute) History of total left knee replacement (TKR) (Acute 12/14/19) Dr. Wilson s/p debridement and poly exchange 02/10/20 Renal insufficiency (Chronic) Hypertension (Chronic) Tubular adenoma of colon (Acute 09/02/16) Low blood magnesium (Acute 11/01/13) Tubulovillous adenoma polyp of colon (Chronic) Noted by colonoscopy.Chest pain, rule out acute myocardial infarction (Acute 11/01/13) Abnormal LFTs (Chronic) Secondary to fartty infiltrate of the liver. Diabetic renal disease (Chronic) Benign hypertension (Chronic) Obesity (Chronic) Benign prostatic hyperplasia (Chronic) Obstructive sleep apnea syndrome (Chronic) Nocturnal CPAPHyperlipidemia (Chronic) Diabetes mellitus type 2 (Chronic) Since approximately 1997. On insulin thereapy. Last hemoglobin A1c 6.5% March 2013. 11-01-2013: Most recent hemoglobin A1c was 6.6 ? date. Medical History Paresthesias Fatty infiltration of liver Erectile dysfunction Foot drop Unsteady gait History of removal of joint prosthesis of right knee due to infection CKD (chronic kidney disease), stage III Microalbuminuria Diabetic polyneuropathy Morbid obesity Sleep apnea BPH (benign prostatic hyperplasia) Myalgia Perennial allergic rhinitis Vertigo Palliative care patient Hearing loss Chronic lower back pain Osteoarthritis Venous insufficiency Sleep apnea with use of continuous positive airway pressure (CPAP) History of seizures as a child Hx of myocardial infarction 10/2011 STRESS TEST COMPLETED 11/29/2019 Hyperlipidemia CAD (coronary artery disease) Cellulitis RIGHT LOWER LEG Diabetes Arthritis Surgical History History of total left hip arthroplasty (07/29/23) Carpal tunnel syndrome of right wrist S/P ECTR: 10/28/2022 H/O total knee replacement left knee 12/14/2019, right knee 01/16/2021 History of tonsillectomy and adenoidectomy H/O heart artery stent X2 2014 colonoscopy (09/02/16) Social History/Home Situation: Lives with in a private home with a ramp to enter. does the cooking, house chores, and laundry. Children are also involved with care as needed. Equipment Owned/DME: FWW, air cast boot Subjective: Has very diminished sensation in B legs and feet, d enied pain in debrided area. Motivated to do exercises. Understands the importance of not putting weight on the left foot per associate professor of literacy's order. Objective: General Observation: Resting on bedside chair. Surgical dressing to L foot. Brawny edema to B legs from venous insufficiency. Mental Status: Alert and oriented as to person, place, time, and purpose. Able to pay attention, focus, and respond appropriately. Pain: Denied Vital Signs: Closely monitored by nursing staff ROM: Right Lower Extremity: Hip flexion WFL. Hip abduction WFL. Knee flexion WFL. Ankle dorsiflexion WFL. Ankle plantarflexion WFL. Left Lower Extremity: Hip flexion WFL. Hip abduction WFL. Knee flexion WFL. Ankle dorsiflexion NT. Ankle plantarflexion NT. Toe flexion less than 25%. Strength: Right Lower Extremity: Hip flexors 4/5. Hip abductors 4/5. Knee flexors 4/5. Knee extensors 4/5. Ankle dorsiflexors 4-/5. Ankle plantarflexors 4-/5. Left Lower Extremity:Hip flexors 4-/5. Hip abductors 4-/5. Knee flexors 5/5. Knee extensors 5/5. Ankle dorsiflexors 5/5. Ankle plantarflexors 5/5. Bed Mobility/Transfers: Minimal cueing provided for use of B hands as needed for support, movement sequence, AD management, and posture to reduce fall risk and minimize pain report Rolling minimal assist Supine to sit stand by assist Sit to stand stand by assist, NWB on the L LE, needs moderate cueing to follow WB precaution Stand to sit stand by assist, NWB on the L LE, , needs moderate cueing to follow WB precaution Gait: Stand pivot transfer only due to WB precaution and body habitus. Balance: Static Sitting: Normal Dynamic Sitting: Normal Static Standing: Unable to test Dynamic Standing: Unable to test Special Tests: Mobility Limitations Standardized Measure [facility] AM-PAC 6 clicks Basic Mobility Inpatient Short Form: Raw Score: 19 CMS Score: 42% deficit Informed Consent/Education: Patient was instructed in purpose of PT consult and plan of care. Agreeable to proceed with established PT POC to achieve personal goals. Assessment: Per Dr. Li as of 02/04/2024: Non-weight bearing on the L LE with AD. Advised nursing staff to minimize ambulation with NWB on the L LE for essential cespedes sfers only due to WB precaution, body habitus and decreased sensation to B LE. Needs moderate cueing to comply with WB precaution. Pre-existing spinal stenosis and L knee TKA limiting erect trunk positioning. Ambulation with PT only. Also reviewed seated exercises with patient to be done every 2-3 hours while awake. Patient presents with clinical signs and symptoms consistent with current/admitting diagnoses that have resulted to mobility limitations, gait instability, generalized weakness, and overall ADL decline as demonstrated by the following impairment level findings: 1. Decreased strength to core and B LE major muscle groups 2. Impaired sitting/standing balance 3. Impaired activity tolerance 4. Limitation of joint range of motion in L ankle joint 5. NWB on the L LE Impairments are contributing to the following functional limitations: 1. Decline in bed mobility skills 2. Decline in transfer skills 3. Difficulty with ambulation without assistive device and physical assistance 4. Increased completion time for mobility ADL performance 5. Increased risk for falls 6. Difficulty with managing steps alone safely Patient is assessed as a 36246 high complexity based on the following: History: 79-year-old male with past medical history as indicated above Examination: Demonstrable impairment in strength, balance, and mobility level with underlying impairments and functional limitations as exhibited above as well as deficit score of 42% utilizing the [facility] Mobility Inpatient Short Form Presentation: Evolving Decision Makin high complexity Goals: Goals X1 week 1. Supine-Sit independent 2. Sit-Supine independent 3. Sit-Stand independent 4. Stand-Sit independent with FWW 5. Bed-Chair independent with FWW stand pivot transfer 6. Chair-Bed independent with FWW stand pivot transfer 7. Independent gait on level surface with use of FWW for at least 15 feet without report of pain nor dyspnea Plan of Care/Treatment Plan: 1-2x/day, 7 days/week x 1 week. Plan of care has been reviewed with the EVAPORATOR OPERATOR MOLASSES providing the service under Physical Therapy direction. Initiate Physical Therapy intervention for pain management as needed, strengthening, bed mobility, transfers, gait, stairs, balance training, and use of assistive device. -Gradually train with safe ambulation uo to 15 feet using AD and NWB. DISCHARGE RECOMMENDATIONS: [] Home with no services [] [X] Home with services. Patient will benefit from home health PT services in order to progress mobility level using least restrictive assistive ambulatory device, assess home safety, identify additional equipment needs, and establish a functional maintenance program that will increase ability of patient to remain at home. [] Home with outpatient PT [] [] SNF for continued rehabilitation [] [] [facility] [] [] SNF versus LTC based on ability to participate and progress [] TREATMENT CODE/TIME: 21106 x 20 minutes for 1 unit, 37465 x 19 minutes for 1 unit (13:18-13:57). Thank you for the opportunity to participate in the care of this patient. Nargis Bernabe PT, DPT, CLT [facility] [place], [place]
[2024-02-05] MEDS: rOPINIRole 0.5 MG TAB 1 MG PO ×3 (15:07→18:09)
[2024-02-05 15:13] VITALS: BP 145/75; PULSE 68; RESP 18; TEMP 35.9; O2SAT 98
[2024-02-05] MEDS: Acetaminophen 325 MG TAB PO (18:10)
[2024-02-05 20:27] VITALS: BP 124/65; PULSE 71; RESP 18; TEMP 35.8; O2SAT 96
[2024-02-05] MEDS: Pregabalin 100 MG CAP 200 MG PO (21:17)
[2024-02-05] MEDS: rOPINIRole 0.5 MG TAB 2 MG PO (21:17)
[2024-02-05 23:41] VITALS: RESP 18
[2024-02-06] MEDS: CEFEPIME 2 GM in Normal Saline 100 ML IVPB ×2 (02:17→15:35)
[2024-02-06 02:51] VITALS: BP 128/75; PULSE 68; RESP 18; TEMP 36.2; O2SAT 96
[2024-02-06 06:26] LABS: Abs Immature Grans 0.04 10^3/uL (0.0-0.06); Absolute Basophil Count 0.05 10^3/uL (0.0-0.2); Absolute Eosinophil Count 0.21 10^3/uL (0.0-0.7); Absolute Lymphocyte Count 0.43 10^3/uL (1.2-3.4); Absolute Neutrophil Count 7.09 10^3/uL (1.2-6.7); Basophils % 0.6; Eosinophils % 2.5; HCT 40.4 % (40.0-50.0); HGB 12.4 g/dL (13.5-17.5); Immature Grans % 0.5; Lymphocytes % 5.2; MCH 23.8 pg (27.0-33.0); MCHC 30.7 % (32.0-36.0); MCV 77 fL (80-95); MPV 9.1 fL (8.0-11.0); Neutrophils % 85.2; Platelet Count 230 10^3/uL (130-400); RBC 5.22 10^6/uL (4.36-5.78); RDW 18.6 % (11.8-14.1); RDW-SD 51.8 fL; WBC 8.32 10^3/uL (4.4-10.8)
[2024-02-06 06:30] LABS: Anion Gap 10.1 mmol/L (3-11); BUN 40 mg/dL (7-18); CO2 26.9 mmol/L (21.0-32.0); CREATININE 1.5 mg/dL (0.70-1.30); Calcium 9.4 mg/dL (8.5-10.1); Chloride 102 mmol/L (98-107); Estimated GFR 46.48 (mL/min/1.73m2); Glucose 119 mg/dL (74-106); Magnesium 1.7 mg/dL (1.8-2.4); Sodium 139 mmol/L (136-145)
[2024-02-06 07:28] VITALS: BP 140/72; PULSE 73; RESP 18; TEMP 35.9; O2SAT 96
[2024-02-06] MEDS: Enoxaparin 40 MG/0.4 ML SYR SC ×2 (07:56→21:34)
[2024-02-06] MEDS: Docusate Sodium 100 MG CAP PO ×3 (07:57→19:50)
[2024-02-06] MEDS: Normal Saline Flush 10 ML SYR IVP ×3 (07:57→21:23)
[2024-02-06] MEDS: metroNIDAZOLE 500 MG TAB PO ×3 (07:57→19:53)
[2024-02-06] MEDS: Pregabalin 100 MG CAP PO (07:57)
[2024-02-06] MEDS: Lactobacillus Acidophilus CAP 1 CAP PO (07:57)
--- NOTE | 2024-02-06 09:24 | W.PM.PROGNOT ---
Date of Service Date of service: 02/06/24 Time of Service: Assessment and Plan Assessment and plan (1) Diabetic foot infection: Status: Acute Assessment and plan: -Chronic left foot infection failing outpatient oral antibiotic therapy -[place] [facility] [place] antibiotics - 2 g of cefepime every 12 hours, daptomycin 750 mg daily, and oral Flagyl 500 mg 3 times daily; will continue until further sensitivity available -wound C& S results: MRSA and pseudomonas -Blood C & S: No growth 48 hours -Continue Probiotics: Bio-k Plus oral daily -MRI of the left foot showed abscess and most likely osteomylitis. Followed by podiatry and OR for D&I completed on 02/04/24, 2nd wound cultures taken and results for Staph aureusm and proteus species further results pending -CBC in AM -CRP and ESR on 02/06 -CTA w runoff results: -IMPRESSION: Atherosclerotic changes causing [id number] stenosis in both lower extremities. The vessels of the ankles and feet appear patent. Soft Tissues: Soft tissue edema severe over the dorsal lateral aspect of the foot. Air in this area as well as some high density material which may represent packing. Erosions at the bases of the 4th and 5th metatarsals. Findings consistent with osteomyelitis. There is bilateral lower extremity edema -Podiatry:after discussion with Dr. Li regarding the CTA aorta abd with run off results will plan for 6-week course of antibiotics and adjust as per Dr. Servin for [place] [facility] [place] cultures are resulted. We want to maintain the vascular appointment the patient has [place] [facility] [place] -Considering the need for cefepime as wound is showing GPC mixed shannen and blood cultures are negative at 24 hours in the setting where the patient is also receiving Daptomycin IV and flagyl orally. Will await for cultures results from the wound C&S collected by Dr. Li on 02/03 as per discusssion with Dr. Servin on 02/04 from ID, to possibly narrow the choice of cephalosporin. Will reach out to Dr. Servin when complete sensitivity is available most likely on Tuesday 02/06. -Midline completed on 02/02: Decloted by PICC team on 02/04. PICC team aware on tank terminal gauger IV antibiotics plan and available to switch midline to PICC on Thursday prior to probable discharge for 6-week course of antibiotics . (2) Low blood magnesium: Status: Acute Assessment and plan: Mg 1.7 , will replace. Mg level in AM (3) Diabetic neuropathy: Status: Acute Assessment and plan: -Continue s home dose Lyrica (4) Hypertension: Status: Chronic Assessment and plan: - Continue home dose of carvedilol, losartan, and hydrochlorothiazide (5) Renal insufficiency: Status: Chronic Assessment and plan: -Creatinine baseline after CTA on 02/03 -Encourage oral hydration -BMP in AM (6) Obstructive sleep apnea syndrome: Status: Chronic Assessment and plan: - home CPAP as per home settings (7) Diabetes mellitus type 2: Status: Chronic Assessment and plan: -Gluc AC and HS, basal insulin and SSI -Continue diabetic diet (8) Morbid obesity: Assessment and plan: -Previously discussed with spouse and patient: Weight management and lifestyle changes discussed with patient. -Exercise bike at home in the setting of osteomyelitis: hold until infection is controlled- -Non-weight bearing as per Dr. Li from podiatry -PT consulted: No biking , see notes please -Conitinue IS - (9) On deep vein thrombosis (DVT) prophylaxis: Status: Acute Assessment and plan: Continue lovenox at HS (10) Constipation: Status: Acute Assessment and plan: - On scheduled oral Docusate - Monitor and reduce frequency when BM -PRN MOM (11) Chronic disease under co-management: Status: Acute Assessment and plan: -Med reconciliation obtained [place] [facility] [place] patient stated receiving calls from [place] indicating drug regimen modification but could not recall the exact changes. -Chronic condition managed as per home medicines regimen (12) Discharge planning issues: Status: Acute Assessment and plan: -CM to f/u : Home with HH VS OPT infusion; Patient verbalized his preference for home antibiotic infusion with home health stating that he went through this process once -Consideration to be given to probable senior care antibiotics most likely 6-week course. - -HH versus OPT infusion: Considering levaquin IV and Daptomycin IV but will discuss with Dr. Servin from [place] [facility] once final sensitivities are obtained. -Probable discharge on Thursday and [facility] vascular [place] [facility] [place]. Discussed with Dr. Santoro Subjective Subjective Patient reports: no new complaints, feels better, tolerating liquids well, tolerating a regular diet and voiding w/o difficulty; denies no bowel movement, diarrhea, blood in stool, nausea, vomiting, shortness of breath, afebrile or fever Exam Narrative Exam Narrative: Constitutional The patient is sitting in chair without acute distress and has obese body habitus.Family in room and d/c plan discussed: At home w HH vs OPT infusion HENMT: Facial structures with normal appearance. 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 Objective Last Vital Signs Temp 35.9 C L 02/06/24 07:28 Pulse 73 02/06/24 07:28 Resp 18 02/06/24 07:28 BP 140/72 02/06/24 07:28 Pulse Ox 96 02/06/24 07:28 Laboratory Results - last 24 hr 02/06/24 05:55 WBC 8.32 RBC 5.22 Hgb 12.4 L Hct 40.4 MCV 77 L MCH 23.8 L MCHC 30.7 L RDW 18.6 H Plt Count 230 MPV 9.1 Immature Gran % 0.5 Neutrophils % 85.2 Lymphocytes % 5.2 Monocytes % 6.0 Eosinophils % 2.5 Basophils % 0.6 Nucleated RBC % 0.0 Absolute Neutrophils 7.09 H Absolute Lymphocytes 0.43 L Absolute Monocytes 0.50 Absolute Eosinophils 0.21 Absolute Basophils 0.05 Sodium 139 Potassium 5.0 Chloride 102 Carbon Dioxide 26.9 Anion Gap 10.1 BUN 40 H Creatinine 1.5 H Est GFR (CKD-EPI 2020) 46.48 Glucose 119 H Calcium 9.4 Magnesium 1.7 L Time Spent with Patient Time Spent with Patient: >50 minutes Time was spent: preparing to see the patient(eg.review tests), obtaining and/or reviewing separately otained hiistory, ordering medications,tests, procedures, referring, communicating with other health geriatric personal care aide, indepentently interpreting results, counseling the patient and care coordination
--- NOTE | 2024-02-06 09:51 | PT.INTREAT ---
PT Notes Visit Reasons: Left Infected diabetic foot wound Inpatient Physical Therapy Treatment Note [facility] Date: 02/06/24 PRECAUTIONS:MRSA OBJECTIVE: ? GAIT? Assistive Device: FWW ? Weight bearing: NWB L LE Assist: CGA/SBA? Distance:? Static standing to fatigue approx 3 to 4 min ? Therapeutic Exercises (36715m[2]): Direct one-on-one instruction in therapeutic exercises to develop strength, endurance, range of motion and flexibility. ? Exercises ? Seated rowing x 20 Seated shoulder flexion x 20 Seated shoulder horz abd x10 Seated shoulder circles x 10 Seated chair push ups x 5 LAQ x 20 Seated marching x 20 Seated hip abd x 20 Seated SLR x 20 ? ASSESSMENT:? Pt tolerated today's session well he was motivated for PT. Pt had to sit after approx 4 min of standing due to the R LE feeling weak and like it was going to give out her stated. PLAN: Cont as per PT POC. TREATMENT CODE/TIME: 9:50-10:15 (25) TPx2
[2024-02-06] MEDS: Carvedilol 25 MG TAB PO ×2 (10:30→19:55)
[2024-02-06] MEDS: MAGNESIUM SULFATE 2 GM/50 ML BAG IVPB (10:30)
[2024-02-06] MEDS: Empaglifozin 25 MG TAB PO (10:30)
[2024-02-06] MEDS: Aspirin E.C. 81 MG TABEC PO (10:30)
[2024-02-06] MEDS: Ferrous Sulfate 325 MG TAB PO (10:30)
[2024-02-06] MEDS: Milk of Magnesia 30 ML CUP PO (10:45)
[2024-02-06 11:38] VITALS: BP 117/65; PULSE 69; RESP 19; TEMP 36.1; O2SAT 96
[2024-02-06] MEDS: rOPINIRole 0.5 MG TAB 1 MG PO ×3 (12:15→17:00)
[2024-02-06 15:53] VITALS: BP 126/67; PULSE 74; RESP 17; TEMP 36.6; O2SAT 96
[2024-02-06] MEDS: metFORMIN 500 MG TAB PO (17:01)
--- NOTE | 2024-02-06 17:37 | W.PM.PROGNOT ---
Date of Service Date of service: 02/06/24 Time of Service: 13:00 Assessment and Plan Assessment and plan (1) Osteomyelitis of left foot: Status: Acute (2) Ulcer of left foot with fat layer exposed: Status: Acute (3) Atherosclerosis of lower extremity with ulceration: Status: Acute (4) Atherosclerosis of left lower extremity with ulceration: Status: Acute (5) Diabetic foot infection: Status: Acute (6) Diabetes mellitus type 2: Status: Chronic Assessment and plan: Patient was seen and evaluated today. He is seen resting comfortably. Labs and imaging reviewed. CT shows mild to moderate stenosis however does show flow to the foot and ankle level. However, considering the wound has not healed yet I do recommend consultation with vascular to see if he will be a candidate for revascularization to allow the wound to heal somewhat faster. I recommend continuing IV antibiotics as per infectious disease. There is malodor noted to the wound dressings which were noted to be saturated, there was a urine malodor to the dressings today. I discussed this with the patient and he suspects that his urinal may have fallen on the ground thereby spilling on his foot dressings. I discussed this with nursing and medicine team. He may require assistance to prevent this as this poses further risk for worsening infection. The wound was flushed with copious months of sterile saline today. Dressings were then applied with iodoform packing gauze, Maxorb, 4 x 4, Kerlix, Eduin wrap. Nursing good to continue dressing changes with iodoform packing gauze, Maxorb, 4 x 4, Kerlix and Eduin wrap. Patient keep the left lower extremity elevated at all times. I recommend nonweightbearing to the left lower extremity however he may heel touch if he has to go to the bathroom. No further surgical intervention planned at this time. I recommend consultation with vascular. Will narrow antibiotics and consultation with infectious disease and perhaps discharge the patient with IV antibiotics. He will require 6 weeks of IV antibiotics at least. I discussed discuss risk for limb loss with the patient considering nonhealing and osteomyelitis to the fourth and fifth metatarsals. Patient understands and verbalizes understanding. Will continue to follow. Subjective Subjective Interval history since last seen: Patient was seen bedside today. Resting comfortably. Denies any pain. Denies nausea vomiting chills fever or diarrhea. He states he has been none weightbearing to the left lower extremity however has not been elevating his foot. Denies new pedal complaints. Exam Extrem Other: Bilateral lower extremity physical exam: Derm: Dressings noted to be intact however saturated in urine/mild sanguinous drainage from the wound. Full-thickness ulceration measuring approximately 3.5 x 3.1 x 0.7 cm with a central area 1.5 x 0.8 bone exposed, resolved periwound erythema and there is edema noted no purulence noted from the wound there is warmth noted to the foot. The base of the wound is granular, he has active centrally there is bone exposed as well as fascia, periwound there is hyperkeratotic tissue there is there no proximal streaking or lymphangitis noted, there is tunneling noted circumferentially around the wound. No crepitus no bogginess noted. Skin is otherwise warm dry and supple with a small full-thickness ulceration noted to the tip of the left fifth toe. No evidence for ulcerations noted to the right foot. Vascular: DP PT pulses are nonpalpable bilaterally there is edema noted bilaterally. Hair growth absent bilaterally venous skin changes noted bilaterally. Skin is cool from the toes however warm proximally. MSK: There is tenderness to palpation noted to the left fifth metatarsal base area where the wound is. Otherwise muscle strength is normal and symmetrical for age. Pes planus foot type noted bilaterally. Neuro: Light touch sensation absent bilaterally. Patient uses a walker for ambulation. Does report paresthesias bilaterally. Objective Last Vital Signs Temp 97.9 F 02/06/24 15:53 Pulse 74 02/06/24 15:53 Resp 17 02/06/24 15:53 BP 126/67 02/06/24 15:53 Pulse Ox 96 02/06/24 15:53 Laboratory Results - last 24 hr 02/06/24 05:55 WBC 8.32 RBC 5.22 Hgb 12.4 L Hct 40.4 MCV 77 L MCH 23.8 L MCHC 30.7 L RDW 18.6 H Plt Count 230 MPV 9.1 Immature Gran % 0.5 Neutrophils % 85.2 Lymphocytes % 5.2 Monocytes % 6.0 Eosinophils % 2.5 Basophils % 0.6 Nucleated RBC % 0.0 Absolute Neutrophils 7.09 H Absolute Lymphocytes 0.43 L Absolute Monocytes 0.50 Absolute Eosinophils 0.21 Absolute Basophils 0.05 Sodium 139 Potassium 5.0 Chloride 102 Carbon Dioxide 26.9 Anion Gap 10.1 BUN 40 H Creatinine 1.5 H Est GFR (CKD-EPI 2020) 46.48 Glucose 119 H Calcium 9.4 Magnesium 1.7 L Time Spent with Patient Time Spent with Patient: >50 minutes Time was spent: preparing to see the patient(eg.review tests), obtaining and/or reviewing separately otained hiistory, ordering medications,tests, procedures, referring, communicating with other health respiratory care program director, indepentently interpreting results, counseling the patient and care coordination
[2024-02-06 19:47] VITALS: BP 139/74; PULSE 86; RESP 20; TEMP 36.9; O2SAT 95
[2024-02-06] MEDS: Magnesium Oxide 400 MG TAB PO (19:53)
[2024-02-06] MEDS: Pregabalin 100 MG CAP 200 MG PO (21:21)
[2024-02-06] MEDS: rOPINIRole 0.5 MG TAB 2 MG PO (21:21)
[2024-02-06] MEDS: Doxazosin 2 MG TAB 4 MG PO (21:22)
[2024-02-06] MEDS: Baclofen 10 MG TAB 5 MG PO (21:22)
[2024-02-06] MEDS: Insulin Glargine 300 UNITS/3 ML PEN 25 UNITS SC (21:32)
[2024-02-06 23:33] VITALS: BP 134/73; PULSE 76; RESP 17; TEMP 36.4; O2SAT 94
[2024-02-07 03:55] VITALS: BP 132/83; PULSE 73; RESP 18; TEMP 36.7; O2SAT 95
[2024-02-07] MEDS: CEFEPIME 2 GM in Normal Saline 100 ML IVPB ×2 (04:02→13:53)
[2024-02-07] MEDS: Normal Saline 10 ML VIAL IJ (04:09)
[2024-02-07 06:25] LABS: Abs Immature Grans 0.04 10^3/uL (0.0-0.06); Absolute Basophil Count 0.03 10^3/uL (0.0-0.2); Absolute Lymphocyte Count 0.42 10^3/uL (1.2-3.4); Absolute Monocyte Count 0.64 10^3/uL (0.1-0.8); Absolute Neutrophil Count 7.31 10^3/uL (1.2-6.7); Basophils % 0.3; Eosinophils % 2.3; HCT 39.8 % (40.0-50.0); HGB 12.6 g/dL (13.5-17.5); Immature Grans % 0.5; Lymphocytes % 4.9; MCH 24.8 pg (27.0-33.0); MCHC 31.7 % (32.0-36.0); MCV 78 fL (80-95); MPV 8.8 fL (8.0-11.0); Monocytes % 7.4; Neutrophils % 84.6; Platelet Count 202 10^3/uL (130-400); RBC 5.09 10^6/uL (4.36-5.78); RDW 18.8 % (11.8-14.1); RDW-SD 52.4 fL; WBC 8.64 10^3/uL (4.4-10.8)
[2024-02-07 06:30] LABS: ESR 57 mm/hr (0-20)
[2024-02-07 06:39] LABS: Anion Gap 9.6 mmol/L (3-11); BUN 42 mg/dL (7-18); C-Reactive Protein 4.84 mg/dL (<or=0.5); CO2 26.4 mmol/L (21.0-32.0); CREATININE 1.5 mg/dL (0.70-1.30); Calcium 9.2 mg/dL (8.5-10.1); Chloride 102 mmol/L (98-107); Estimated GFR 46.48 (mL/min/1.73m2); Glucose 135 mg/dL (74-106); Magnesium 1.8 mg/dL (1.8-2.4); Potassium 5.4 mmol/L (3.5-5.1); Sodium 138 mmol/L (136-145)
[2024-02-07 07:47] VITALS: BP 130/73; PULSE 71; RESP 20; TEMP 36.6; O2SAT 94
[2024-02-07] MEDS: Enoxaparin 40 MG/0.4 ML SYR SC ×2 (07:57→21:14)
[2024-02-07] MEDS: Normal Saline Flush 10 ML SYR IVP ×2 (07:57→21:12)
[2024-02-07] MEDS: Magnesium Oxide 400 MG TAB 800 MG PO (07:58)
[2024-02-07] MEDS: Aspirin E.C. 81 MG TABEC PO (07:58)
[2024-02-07] MEDS: Milk of Magnesia 30 ML CUP PO (07:58)
[2024-02-07] MEDS: Polyethylene Glycol 3350 17 GM PACKET PO (07:58)
[2024-02-07] MEDS: Pregabalin 100 MG CAP PO (07:59)
[2024-02-07] MEDS: Losartan 50 MG TAB 100 MG PO (07:59)
[2024-02-07] MEDS: metroNIDAZOLE 500 MG TAB PO ×3 (07:59→21:16)
[2024-02-07] MEDS: metFORMIN 500 MG TAB PO ×2 (07:59→17:01)
[2024-02-07] MEDS: Lactobacillus Acidophilus CAP 1 CAP PO (07:59)
[2024-02-07] MEDS: hydroCHLOROthiazide 25 MG TAB 50 MG PO (07:59)
[2024-02-07] MEDS: Empaglifozin 25 MG TAB PO (07:59)
[2024-02-07] MEDS: Ferrous Sulfate 325 MG TAB PO (07:59)
[2024-02-07] MEDS: Docusate Sodium 100 MG CAP PO ×3 (08:00→21:15)
[2024-02-07] MEDS: Carvedilol 25 MG TAB PO (08:00)
--- NOTE | 2024-02-07 09:34 | W.PM.PROGNOT ---
Date of Service Date of service: 02/07/24 Time of Service: 09:34 Assessment and Plan Assessment and plan (1) Diabetic foot infection: Status: Acute Assessment and plan: -Chronic left foot infection failing outpatient oral antibiotic therapy -Recommendations from ID from [facility] [place] were: IV antibiotics - 2 g of cefepime every 12 hours, daptomycin 750 mg daily, and oral Flagyl 500 mg 3 times daily; will continue until further sensitivity available -wound C& S results: MRSA and pseudomonas -Blood C & S: No growth 48 hours -Continue Probiotics: Bio-k Plus oral daily -MRI of the left foot showed abscess and most likely osteomylitis. Followed by podiatry and OR for D&I completed on 02/04/24, 2nd wound cultures taken and results for Staph aureusm and proteus species further results pending -CBC in AM -CRP and ESR on 02/06 -CTA w runoff results: -IMPRESSION: Atherosclerotic changes causing [id number]-[id number] stenosis in both lower extremities. The vessels of the ankles and feet appear patent. Soft Tissues: Soft tissue edema severe over the dorsal lateral aspect of the foot. Air in this area as well as some high density material which may represent packing. Erosions at the bases of the 4th and 5th metatarsals. Findings consistent with osteomyelitis. There is bilateral lower extremity edema -Podiatry:after discussion with Dr. Li regarding the CTA aorta abd with run off results will plan for 6-week course of antibiotics and adjust as per Dr. Servin for ID at [facility] [place] as cultures are resulted. We want to maintain the vascular appointment the patient has at [facility] [place] on Thursday -Considering the need for cefepime as wound is showing GPC mixed shannen and blood cultures are negative at 24 hours in the setting where the patient is also receiving Daptomycin IV and flagyl orally. Will await for cultures results from the wound C&S collected by Dr. Li on 02/03 as per discusssion with Dr. Servin on 02/04 from ID, to possibly narrow the choice of cephalosporin. Will reach out to Dr. Servin when complete sensitivity is available most likely on Tuesday 02/06. -Midline completed on 02/02: Decloted by PICC team on 02/04. PICC team aware on oil heaterman IV antibiotics plan and available to switch midline to PICC on Thursday prior to probable discharge for 6-week course of antibiotics . (2) Low blood magnesium: Status: Acute Assessment and plan: Mg 1.7 , will replace. Mg level in AM (3) Diabetic neuropathy: Status: Acute Assessment and plan: -Continue s home dose Lyrica (4) Hypertension: Status: Chronic Assessment and plan: - Continue home dose of carvedilol, losartan, and hydrochlorothiazide (5) Renal insufficiency: Status: Chronic Assessment and plan: -Creatinine baseline after CTA on 02/03 -Encourage oral hydration -BMP in AM (6) Obstructive sleep apnea syndrome: Status: Chronic Assessment and plan: - home CPAP as per home settings (7) Diabetes mellitus type 2: Status: Chronic Assessment and plan: -Gluc AC and HS, basal insulin and SSI -Continue diabetic diet (8) Morbid obesity: Assessment and plan: -Previously discussed with spouse and patient: Weight management and lifestyle changes discussed with patient. -Exercise bike at home in the setting of osteomyelitis: hold until infection is controlled- -Non-weight bearing as per Dr. Li from podiatry -PT consulted: No biking , see notes please -Conitinue IS - (9) On deep vein thrombosis (DVT) prophylaxis: Status: Acute Assessment and plan: Continue lovenox at HS (10) Constipation: Status: Acute Assessment and plan: - On scheduled oral Docusate - Monitor and reduce frequency when BM -PRN MOM (11) Chronic disease under co-management: Status: Acute Assessment and plan: -Med reconciliation obtained via [facility] [place] as patient stated receiving calls from [place] indicating drug regimen modification but could not recall the exact changes. -Chronic condition managed as per home medicines regimen (12) Discharge planning issues: Status: Acute Assessment and plan: -CM to f/u : Home with HH VS OPT infusion; Patient verbalized his preference for home antibiotic infusion with home health stating that he went through this process once -Consideration to be given to probable detention antibiotics most likely 6-week course. - -HH versus OPT infusion: Considering levaquin IV and Daptomycin IV but will discuss with Dr. Servin from ID at [facility] [place] once final sensitivities are obtained. -Probable discharge on Thursday and OPT vascular at [facility] [place] on Thursday. Subjective Subjective Interval history since last seen: Patient states that he is feeling well today. He understands the plan to continue to monitor for culture sensitivities and discuss antibiotic regimen with his infectious disease doctor at [facility]. Exam Narrative Exam Narrative: Well-appearing obese older gentleman reclining in the chair no acute distress, ANO x 4, heart regular rhythm, lungs clear to auscultation bilaterally, abdomen soft, nontender, nondistended, left foot wrapped in bandage, please see emergency room and/or podiatry note for further details Objective Last Vital Signs Temp 97.9 F 02/07/24 07:47 Pulse 71 02/07/24 07:47 Resp 20 02/07/24 07:47 BP 130/73 02/07/24 07:47 Pulse Ox 94 02/07/24 07:47 Laboratory Results - last 24 hr 02/07/24 06:16 WBC 8.64 RBC 5.09 Hgb 12.6 L Hct 39.8 L MCV 78 L MCH 24.8 L MCHC 31.7 L RDW 18.8 H Plt Count 202 MPV 8.8 Immature Gran % 0.5 Neutrophils % 84.6 Lymphocytes % 4.9 Monocytes % 7.4 Eosinophils % 2.3 Basophils % 0.3 Nucleated RBC % 0.0 Absolute Neutrophils 7.31 H Absolute Lymphocytes 0.42 L Absolute Monocytes 0.64 Absolute Eosinophils 0.20 Absolute Basophils 0.03 ESR 57 H Sodium 138 Potassium 5.4 H Chloride 102 Carbon Dioxide 26.4 Anion Gap 9.6 BUN 42 H Creatinine 1.5 H Est GFR (CKD-EPI 2020) 46.48 Glucose 135 H Calcium 9.2 Magnesium 1.8 C-Reactive Protein 4.84 H Time Spent with Patient Time Spent with Patient: >50 minutes Time was spent: preparing to see the patient(eg.review tests), obtaining and/or reviewing separately otained hiistory, ordering medications,tests, procedures, referring, communicating with other health intensive care ambulance paramedic, indepentently interpreting results, counseling the patient and care coordination
--- NOTE | 2024-02-07 09:53 | PT.INTREAT ---
PT Notes Visit Reasons: Left Infected diabetic foot wound Inpatient Physical Therapy Treatment Note [facility] Date: 02/07/24 PRECAUTIONS:MRSA Therapeutic Activities (41007s[]): Direct one-on-one instruction in dynamic activities to improve functional performance. ? BED MOBILITY/TRANSFERS? Sit-stand: SBA? Stand-sit: SBA ? Therapeutic Exercises (29094s[2]): Direct one-on-one instruction in therapeutic exercises to develop strength, endurance, range of motion and flexibility. ? Exercises ? Seated rowing x 20 Seated shoulder flexion x 20 Seated shoulder horz abd x 20 Seated UE circles x 10 each LAQ x 10 B Marching x 10 B Seated hip abd x 10 B Chair push ups x 5 Ambulation ? Assistive Device: FWW ? Weight bearing: NWB L LE Assist: SBA ? Distance:? Standing endurance approx 5 min ? ASSESSMENT:? Pt tolerated today's session well he was able to stand longer today and stated he had already been up standing a couple of times before I cam in today. PLAN: Cont as per Pt POC. Pt has a procedure in [facility] tomorrow and will be transferred back when it is done. TREATMENT CODE/TIME: 9:25-9:50 (25) TAx2
[2024-02-07 11:18] VITALS: BP 101/59; PULSE 77; RESP 17; TEMP 36.2; O2SAT 92
[2024-02-07] MEDS: Pantoprazole 40 MG TABCR PO (12:02)
[2024-02-07] MEDS: rOPINIRole 0.5 MG TAB 1 MG PO ×3 (12:02→17:01)
[2024-02-07 15:55] VITALS: BP 109/65; PULSE 85; RESP 18; TEMP 36; O2SAT 94
[2024-02-07 19:55] VITALS: BP 91/58; PULSE 68; RESP 20; TEMP 36; O2SAT 94
[2024-02-07] MEDS: Insulin Glargine 300 UNITS/3 ML PEN 25 UNITS SC (21:13)
[2024-02-07] MEDS: Magnesium Oxide 400 MG TAB PO (21:14)
[2024-02-07] MEDS: rOPINIRole 0.5 MG TAB 2 MG PO (21:15)
[2024-02-07] MEDS: Pregabalin 100 MG CAP 200 MG PO (21:15)
[2024-02-07] MEDS: Baclofen 10 MG TAB 5 MG PO (21:16)
[2024-02-07] MEDS: Doxazosin 2 MG TAB 4 MG PO (21:16)
[2024-02-07 23:58] VITALS: BP 138/75; PULSE 72; RESP 20; TEMP 36.4; O2SAT 95
[2024-02-08] MEDS: CEFEPIME 2 GM in Normal Saline 100 ML IVPB (01:53)
[2024-02-08] MEDS: Normal Saline Flush 10 ML SYR IVP ×3 (01:56→15:29)
[2024-02-08 03:57] VITALS: BP 114/68; PULSE 61; RESP 20; TEMP 36.7; O2SAT 95
[2024-02-08 06:16] LABS: Abs Immature Grans 0.05 10^3/uL (0.0-0.06); Absolute Basophil Count 0.04 10^3/uL (0.0-0.2); Absolute Eosinophil Count 0.26 10^3/uL (0.0-0.7); Absolute Lymphocyte Count 0.45 10^3/uL (1.2-3.4); Absolute Neutrophil Count 7.52 10^3/uL (1.2-6.7); Basophils % 0.4; Eosinophils % 2.9; HCT 38.2 % (40.0-50.0); HGB 12.1 g/dL (13.5-17.5); Immature Grans % 0.6; MCH 24.6 pg (27.0-33.0); MCHC 31.7 % (32.0-36.0); MCV 78 fL (80-95); MPV 9.4 fL (8.0-11.0); Monocytes % 6.7; Neutrophils % 84.4; Platelet Count 201 10^3/uL (130-400); RBC 4.91 10^6/uL (4.36-5.78); RDW 18.6 % (11.8-14.1); RDW-SD 52.5 fL; WBC 8.92 10^3/uL (4.4-10.8)
[2024-02-08 06:27] LABS: Anion Gap 8.9 mmol/L (3-11); BUN 50 mg/dL (7-18); CO2 27.1 mmol/L (21.0-32.0); CREATININE 1.7 mg/dL (0.70-1.30); Calcium 9.1 mg/dL (8.5-10.1); Chloride 101 mmol/L (98-107); Glucose 120 mg/dL (74-106); Potassium 4.8 mmol/L (3.5-5.1); Sodium 137 mmol/L (136-145)
[2024-02-08 07:30] VITALS: BP 118/67; PULSE 63; RESP 18; TEMP 35.2; O2SAT 91
[2024-02-08] MEDS: Magnesium Oxide 400 MG TAB 800 MG PO (08:34)
[2024-02-08] MEDS: Lactobacillus Acidophilus CAP 1 CAP PO (08:34)
[2024-02-08] MEDS: hydroCHLOROthiazide 25 MG TAB 50 MG PO (08:35)
[2024-02-08] MEDS: metroNIDAZOLE 500 MG TAB PO ×2 (08:35→15:30)
[2024-02-08] MEDS: Losartan 50 MG TAB 100 MG PO (08:36)
[2024-02-08] MEDS: Docusate Sodium 100 MG CAP PO ×2 (08:36→12:49)
[2024-02-08] MEDS: Empaglifozin 25 MG TAB PO (08:36)
[2024-02-08] MEDS: metFORMIN 500 MG TAB PO (08:36)
[2024-02-08] MEDS: Aspirin E.C. 81 MG TABEC PO (08:37)
[2024-02-08] MEDS: Pantoprazole 40 MG TABCR PO (08:37)
[2024-02-08] MEDS: Pregabalin 100 MG CAP PO (08:37)
[2024-02-08] MEDS: Ferrous Sulfate 325 MG TAB PO (08:37)
[2024-02-08] MEDS: Carvedilol 25 MG TAB PO (08:37)
[2024-02-08] MEDS: Enoxaparin 40 MG/0.4 ML SYR SC (08:38)
[2024-02-08] MEDS: Milk of Magnesia 30 ML CUP PO (09:04)
[2024-02-08] MEDS: Polyethylene Glycol 3350 17 GM PACKET PO (09:04)
--- NOTE | 2024-02-08 09:04 | W.PM.DS.N ---
Date of service: 02/08/24 Time of Service: 09:05 DS: Diagnosis Discharge Diagnosis (1) Diabetic foot infection: Status: Acute (2) Low blood magnesium: Status: Acute (3) Diabetic neuropathy: Status: Acute (4) Hypertension: Status: Chronic (5) Renal insufficiency: Status: Chronic (6) Obstructive sleep apnea syndrome: Status: Chronic (7) Diabetes mellitus type 2: Status: Chronic (8) Morbid obesity: (9) On deep vein thrombosis (DVT) prophylaxis: Status: Acute (10) Constipation: Status: Acute (11) Chronic disease under co-management: Status: Acute Discharge Plan Disposition Patient Disposition: Home W/Home Health Services Condition: Improving Discharge Details Reason For Visit: Left Infected diabetic foot wound Admit Date/Time: 02/03/24 14:33 Admit Provider: Shay Santoro Attending Provider: Shay Santoro Primary Care Provider: Cameron Mcarthur [facility] Course Hospital Course: This 79 years old male patient with past medical history of diabetes on insulin, peripheral neuropathy, history of osteomyelitis of the left foot, bilateral left extremity venous insufficiency, chronic kidney disease, obstructive sleep apnea, hypertension and hyperlipidemia presented to the ED at [facility] on 02/03/2024 for evaluation of nonhealing diabetic left foot wound on outpatient oral doxycycline. Augmentin was ordered but the patient did not start it. The patient was seen by Dr. Servin of infectious disease at [facility] who recommended inpatient IV antibiotic therapy with hand mixer consultation for potential surgery and would debridement depending on CT or MRI result in the setting of worsening wound despite oral antibiotics. The patient had a 3 cm ulcerated wound on the left lateral plantar surface of his foot with surrounding erythema without pain or crepitus.At the time of presentation the patient had no other complaints. Recommendation from Dr. Servin was to start cefepime 2 g IV every 12 hours, daptomycin 750 mg IV daily as well as oral Flagyl 500 mg 3 times a day. Labs in the ED were unremarkable, x-ray of the left foot did not show any acute finding, wound and blood cultures were collected on 02/03/2024. The hospitalist was consulted and the patient was admitted to the medical surgical floor for inpatient antibiotic therapy the patient was seen by podiatry, Dr. Li. MRI of the left foot was ordered pending the consultation by podiatry. The MRI was suspicious for osteomyelitis involving the proximal half of the fifth metatarsal and the base of the fourth metatarsal with question of erosion at the base of the third metatarsal with small abscesses in the subcutaneous tissue of the lateral and plantar aspect of the foot. Dr. Mckeon discussed and conducted an I& D on the patient left foot wound on 02/04/2024 and further specimen were collected. Initial wound cultures grew MRSA, gram-negative rods?myriodes spp. The specimen collected in the OR on 02/04/2024 grew MRSA, Enterobacter faecalis, and Proteus. A CTA abdominal aorta with runoff showed atherosclerotic changes causing mild to moderate stenosis for both lower extremities but appearent patent blood vessels to the ankles and feet. Upon multiple consultations with Dr. Servin, the patient will have to be on a 6-week course of IV antibiotics: Daptomycin 800 Mg IV daily, ceftriaxone 2 g IV daily; end date of treatment is 03/16/2024. The patient will be discharged home with home health nursing, physical therapy, Occupational Therapy and medical physics teacher. As the patient has an appointment with vascular surgery at [facility], he will present himself to the outpatient infusion center at [facility] on 02/09/2024 and 02/10/2024 as outpatient antibiotic therapy via home health might not be ready. Once home health has the antibiotics, treatment will be continue via home health and will be managed and monitored by the patient primary care practitioner. Podiatry also defers wound care to home health to be done as follows every other day: rinsing with saline or wound cleanser, packing with 1 cm sterile wound-packing, maxobsorb, 4 x 4 gauze Kerlix and lito bandage.The patient will have a weekly CBC and BMP during the course of his 6-week antibiotic therapy; result to be forwarded to the PCP. The patient will also follow-up with Dr. Li from podiatry. The patient will also follow-up with podiatry and with [facility] ID as imaging, reports and discharge summary would have been faxed to the ID service at [phone]. Discussed with Dr. Duke Home Meds and New Rx's Prescriptions: New ceftriaxone 2 gram recon soln 2 g IV DAILY daptomycin 500 mg recon soln 800 mg IV Q24H Rx Instructions: administer over 30 mins Continued magnesium oxide 400 mg (241.3 mg magnesium) tablet 800 mg PO DAILY insulin glargine [Lantus U-100 Insulin] 100 unit/mL solution 25 unit subcut QHS Patient Comments: pt. took 25 units vitamin B complex [B Complex-Vitamin B12] Tablet 1 tab PO DAILY aspirin 81 mg tablet,delayed release (DR/EC) 81 mg PO DAILY pantoprazole 40 mg tablet,delayed release (DR/EC) 40 mg PO DAILY pregabalin 200 mg capsule 200 mg PO QHS Qty: 90 3RF pregabalin 100 mg capsule 100 mg PO .COMPLEX Qty: 180 3RF Rx Instructions: 100 mg orally daily in am with an extra 100mg at noon prn neuropathy pain; ketoconazole 2 % cream 1 applic topical DAILY PRN Jardiance 25 mg tablet 25 mg PO DAILY fluticasone propionate 50 mcg/actuation spray,suspension 1 spray intranasal DAILY PRN (Reason: nasal congestion) Rx Instructions: administer into each nostril doxazosin [Cardura] 4 mg tablet 4 mg PO QPM penicillin V potassium 500 mg tablet 500 mg PO TID Qty: 273 3RF Rx Instructions: take 1 tablet by mouth three times daily (DME) AFO custom See Rx Instructions .Route .MEDSUPPLY Qty: 1 0RF Hold Instructions: Pt Stopped/Never Started Rx Instructions: As directed losartan [Cozaar] 100 MG tablet 100 mg PO DAILY insulin lispro [Humalog KwikPen Insulin] 100 unit/mL insulin pen See Rx Instructions subcut .SLIDING SCALE Patient Comments: pt. reports taking 15 units Rx Instructions: subcutaneously SLIDING SCALE; bolus range of 15-25u at 2 meals a day (SQ SLIDING SCALE); ropinirole 2 mg tablet 2 mg PO .nightly ferrous sulfate [FeroSul] 325 mg (65 mg iron) tablet 325 mg PO DAILY Patient Comments: TAKE ONE TABLET BY MOUTH EVERY DAY metformin 500 mg tablet 500 mg PO BID Patient Comments: TAKE ONE TABLET BY MOUTH TWICE A DAY baclofen 5 mg tablet 5 mg PO HS Patient Comments: TAKE ONE TABLET BY MOUTH AT BEDTIME ropinirole 1 mg tablet 1 mg PO TID Rx Instructions: 1mg at noon, 2PM, and 6PM acetaminophen 500 mg tablet 1,000 mg PO TID PRN hydrochlorothiazide 50 MG tablet 50 mg PO DAILY Qty: 0 0RF carvedilol 25 mg tablet 25 mg PO BID Discontinued amoxicillin-pot clavulanate [Augmentin] 500-125 mg tablet 1 tab PO BID 14 Days Qty: 28 0RF Discharge Instructions Stand Alone Forms: Nursing Discharge Form Referrals: Cameron Mcarthur MD [Primary Care Provider] - 02/17/24 11:15 am () Parvin Li DPM [[facility] STAFF PHYSICIAN] - 02/10/24 8:30 am Activity:: Activity as Tolerated Equipment/Supplies:: Walker Diet:: heart healty diabetic Discharge Orders Discharge Orders: Discharge Order (Routine); Ordered 02/08/24 Ordered By: Annetta Downey DS: Summary Time Spent with Patient providing and/or coordinating discharge services: Greater than 30 minutes Status at Discharge Functional status at discharge: independent ambulation Overall status at discharge: patient is back to baseline Mental Status: mental status grossly normal Speech and Movement: speech and movement normal Mood: congruent mood Affect: normal affect Quality:SDOH Health Related Social Needs: Health related social needs inadequate housing Health related social needs details old farm house Health related social needs details: old farm house Exam Narrative Exam Narrative: Neuro:alert and oriented X4,no neurological focal deficit Resp: Normal respiratory pattern, clear lung bilaterally Cardio: regular rhythm, S1, S2, positive pulses to all 4 extremities GI: Abdomen is large not distended, soft and non tender, bowel sounds are present : Negative Costovertebral angle tenderness Integumentary: Chronic skin discoloration to bilateral lower extremities , left foot wound dressing is CDI Psych: RASS 0, congruent mood and normal affect. Psych Mental Status: mental status grossly normal Speech and Movement: speech and movement normal Mood: congruent mood Affect: normal affect DS: Data Vitals/I&O Vitals and I&O: Vital Signs Temperature 35.2 C L 02/08/24 07:30 Temperature Source Tympanic 02/08/24 07:30 Pulse 63 02/08/24 07:30 Pulse Rhythm Regular 02/08/24 00:15 Respiratory Rate 18 02/08/24 07:30 Respiratory Effort Normal, Non-Labored 02/08/24 00:15 Respiratory Depth Normal 02/08/24 00:15 Respiratory Pattern Normal 02/08/24 00:15 Blood Pressure 118/67 02/08/24 07:30 Blood Pressure Position Sitting 02/03/24 12:32 Pulse Oximetry 91 L 02/08/24 07:30 Respiratory End-tidal CO2 32 02/04/24 11:42 Oxygen Delivery Method Room Air 02/08/24 07:30 Oxygen Flow Rate 0 02/08/24 07:30 Fraction of Inspired Oxygen (FIO2) 21 02/06/24 08:05 Pain Level 0 02/08/24 07:30 Comment BP called over radio/ will inform RN in person 02/05/24 15:13 Intake & Output 02/07/24 02/07/24 02/08/24 11:59 23:59 11:59 Intake Total 150 / 510 110 / 110 Output Total 1450 / 1850 1700 / 1700 Balance -1300 / -1340 -1590 / -1590 Intake: IV 150 / 150 110 / 110 Oral Output: Urine 1450 / 1850 1700 / 1700 Other: Urine Color Yellow Yellow Urine Appearance Clear Clear Urine Odor Strong None Comment condom cath changed Voiding Methods Urinal Urinal Data Completed and Pending Labs on day of discharge: Labs from last 24 hours 02/08/24 05:38 WBC 8.92 RBC 4.91 Hgb 12.1 L Hct 38.2 L MCV 78 L MCH 24.6 L MCHC 31.7 L RDW 18.6 H Plt Count 201 MPV 9.4 Immature Gran % 0.6 Neutrophils % 84.4 Lymphocytes % 5.0 Monocytes % 6.7 Eosinophils % 2.9 Basophils % 0.4 Nucleated RBC % 0.0 Absolute Neutrophils 7.52 H Absolute Lymphocytes 0.45 L Absolute Monocytes 0.60 Absolute Eosinophils 0.26 Absolute Basophils 0.04 Sodium 137 Potassium 4.8 Chloride 101 Carbon Dioxide 27.1 Anion Gap 8.9 BUN 50 H Creatinine 1.7 H Est GFR (CKD-EPI 2020) 40.00 Glucose 120 H Calcium 9.1 Preliminary micro results at discharge 02/03/24 12:50 Wound Culture - Preliminary Foot - Left Staph aureus, MRSA Myroides spp Normal Claribel 02/04/24 11:09 Surgical Culture - Preliminary Foot - Left Staph aureus, MRSA Gram Positive Claribel#2 Proteus hauseri 02/03/24 13:12 Blood Culture - Preliminary Blood NO GROWTH 96 HOURS 02/03/24 13:00 Blood Culture - Preliminary Blood NO GROWTH 96 HOURS 02/04/24 11:07 Anaerobic Culture - Preliminary Foot - Left [facility] All Active Problems (Updated 02/08/24 @ 15:57 by Annetta Downey APRN) Chronic disease under co-management (Acute) Constipation (Acute) On deep vein thrombosis (DVT) prophylaxis (Acute) Atherosclerosis of left lower extremity with ulceration (Acute) Diabetic foot infection (Acute) Atherosclerosis of lower extremity with ulceration (Acute) Atherosclerosis of artery of both lower extremities (Acute) Ulcer of left foot with fat layer exposed (Acute) Osteomyelitis of left foot (Acute) Restless leg syndrome (Acute) DVT (deep venous thrombosis) (Chronic) Venous ulcer-leg syndrome, bilateral (Acute) Onychogryphosis (Acute) Venous insufficiency of both lower extremities (Acute) Ulcer of right foot with fat layer exposed (Acute) Controlled type 2 diabetes mellitus with ulcer of toe (Acute) Atherosclerosis of [place] arteries of right leg with ulceration of ankle (Acute) Impacted cerumen, bilateral (Acute) Ulcer of extremity due to chronic venous insufficiency (Acute) Pneumonia (Acute) Nail dystrophy (Acute) Lumbar stenosis (Acute) Carpal tunnel syndrome of left wrist (Acute) Bilateral hand numbness (Acute) Foot drop, bilateral (Acute) Diabetic neuropathy (Acute) Left sided sciatica (Acute) Impairment of speech discrimination (Acute) Asymmetrical sensorineural hearing loss (Acute) Onychomycosis (Acute) DVT prophylaxis (Acute) Sepsis (Acute) Infection of total right knee replacement (Acute) S/p irrigation and debridement; poly exchange; arthrotomy repair DOS: 10/04/2021 Advance care planning (Acute) Bacteremia (Acute) Asymmetrical sensorineural hearing loss (Acute) History of total right knee replacement (Acute 01/16/21) First degree heart block (Acute) Discharge planning issues (Acute) DVT prophylaxis (Acute) Cellulitis (Acute) History of total left knee replacement (TKR) (Acute 12/14/19) Dr. Wilson s/p debridement and poly exchange 02/10/20 Renal insufficiency (Chronic) Hypertension (Chronic) Tubular adenoma of colon (Acute 09/02/16) Low blood magnesium (Acute 11/01/13) Tubulovillous adenoma polyp of colon (Chronic) Noted by colonoscopy. Chest pain, rule out acute myocardial infarction (Acute 11/01/13) Abnormal LFTs (Chronic) Secondary to fartty infiltrate of the liver. Diabetic renal disease (Chronic) Benign hypertension (Chronic) Obesity (Chronic) Benign prostatic hyperplasia (Chronic) Obstructive sleep apnea syndrome (Chronic) Nocturnal CPAP Hyperlipidemia (Chronic) Diabetes mellitus type 2 (Chronic) Since approximately 1997. On insulin thereapy. Last hemoglobin A1c 6.5% March 2013. 11-01-2013: Most recent hemoglobin A1c was 6.6 ? date. Medical History Paresthesias Fatty infiltration of liver Erectile dysfunction Foot drop Unsteady gait History of removal of joint prosthesis of right knee due to infection CKD (chronic kidney disease), stage III Microalbuminuria Diabetic polyneuropathy Morbid obesity Sleep apnea BPH (benign prostatic hyperplasia) Myalgia Perennial allergic rhinitis Vertigo Palliative care patient Hearing loss Chronic lower back pain Osteoarthritis Venous insufficiency Sleep apnea with use of continuous positive airway pressure (CPAP) History of seizures as a child Hx of myocardial infarction 10/2011 STRESS TEST COMPLETED 11/29/2019 Hyperlipidemia CAD (coronary artery disease) Cellulitis RIGHT LOWER LEG Diabetes Arthritis Surgical History History of total left hip arthroplasty (07/29/23) Carpal tunnel syndrome of right wrist S/P ECTR: 10/28/2022 H/O total knee replacement left knee 12/14/2019, right knee 01/16/2021 History of tonsillectomy and adenoidectomy H/O heart artery stent X2 2014 colonoscopy (09/02/16) Family History Maternal Aunt Colon cancer Maternal Aunt Colon cancer Father , 70s Heart disease Mother Lung cancer Brother Liver failure Son , tractor accident Accident caused by farm tractor Social History Smoking/Tobacco Use Status: Never Smoking risk assessment performed?: Yes Alcohol Intake: never Drug use: Never Substance use type: does not use Housing: house Do you feel safe at home: Yes Do you feel safe in your relationship?: Yes Additional Social history: unable to assess to privately Time Spent with Patient Time Spent with Patient: >85 minutes Time was spent: preparing to see the patient(eg.review tests), obtaining and/or reviewing separately otained hiistory, ordering medications,tests, procedures, referring, communicating with other health career development associate, indepentently interpreting results, counseling the patient and care coordination
--- NOTE | 2024-02-08 09:08 | PDOC.HHF2F ---
Home Health Referral Home Health Orders Clinical synopsis of why skilled professionals are needed: Left foot diabetic wound failing OPT treatment with antibiotics, osteomyelitis needing 6-week course of antibiotics via PICC Registered Nurse: Check all that apply Instruct on new or changed medication(s)/assess compliance: Ordered Assess for exacerbation of medical condition, instruct patient/caregivers on signs and symptoms to report for early detection: Ordered Administer injection as no willing or able caregiver and patient is unable to administer due to: PICC dressing change as per protocol IV therapy, consisting of: As per discharge summary Physical Therapist: Check all that apply Increase strength & endurance for safe mobility at home: Ordered To design/establish home maintenance program: Ordered Other: non-weight bearing left foot as per podiatry Occupational Therapist: Evaluate and treat for patient unable to perform ADL/IADL/self-care: Ordered Upper extremity strengthening, range and motion: Ordered Nut And Bolt Assembler: Assist with community resources: Ordered Assist with detention care planning: Ordered Other: Complex care coordination Home Bound Status Requires the aid of supportive device (check all that apply): Walker and Other (non-weight bearing ) Describe why leaving home would require a considerable and taxing effort: Requires frequent rest periods and Safety Concerns: describe Encounter Date and Reason: I certify that a FTF encounter for this patient was performed on February 08, 2024 and that such encounter was related to the primary reason the patient requires home health services. The encounter was conducted in the following manner: By me as the certifying physician, LENS MOLDING EQUIPMENT OPERATOR, PA or By an inpatient physician, LENS MOLDING EQUIPMENT OPERATOR or PA during an inpatient stay who communicated findings to me, Certification And Authentication I certify that I composed the above information based on my clinical judgment relating to this patient's medical condition and, if applicable, clinical findings communicated to me by the NPP or inpatient physician who performed the FTF encounter. Name of Provider that will be monitoring home health services: Cameron Mcarthur
--- NOTE | 2024-02-08 09:43 | PT.INTREAT ---
PT Notes Visit Reasons: Left Infected diabetic foot wound Inpatient Physical Therapy Treatment Note [facility] Date: 02/08/24 PRECAUTIONS:MRSA SUBJECTIVE: Pt reports that he is having a difficult time non wt bearing on the L LE and his foot is still too swollen to fit in the walking boot. OBJECTIVE: ? Therapeutic Activities (16641b[1]): Direct one-on-one instruction in dynamic activities to improve functional performance. ? BED MOBILITY/TRANSFERS? Sit-stand: CGA? Stand-sit: CGA ? Therapeutic Exercises (29970d[2]): Direct one-on-one instruction in therapeutic exercises to develop strength, endurance, range of motion and flexibility. ? Exercises ? Seated rowing x 20 Seated shoulder flexion x 20 Seated shoulder horz abd x 20 Seated UE circles x 10 each LAQ x 10 B Marching x 10 B Seated hip abd x 10 B Chair push ups x 5 Ambulation ? Assistive Device: FWW? Weight bearing: NWB L LE Assist: CGA ? Distance:? couple of steps from one chair to the other trying to non wt bear on the L LE? ASSESSMENT:? Pt tolerated today's session well. PLAN: Cont as per PT POC. TREATMENT CODE/TIME: 9:10-9:40 (30) TA TP
[2024-02-08 11:18] VITALS: BP 102/62; PULSE 68; RESP 15; TEMP 35.6; O2SAT 90
[2024-02-08] MEDS: rOPINIRole 1 MG TAB PO ×2 (12:49→15:30)
[2024-02-08] MEDS: Bisacodyl 10 MG SUPP PR (12:49)
--- NOTE | 2024-02-08 12:51 | PDOC.CMDIS ---
Date of service: 02/08/24 LACE Index Scoring Tool Questions: Length of Stay (in days): 4 - 6 Was the patient admitted via the E.D.?: Yes E.D. Visits: 1 Answers: Total Score: 8 Risk of Readmission: Low Risk Care Management Discharge Plan Reason for Hospitalization: Left infected diabetic foot wound Discharge Plan: Kurtis will discharge home via private vehicle. He will follow up with his PCP and plan of care instructions. He will resume HH RN services and have new PT,OT,BELT BUILDER, and home IV ABX. CM faxed IV ABX orders and requests to [facility] and confirmed infusion through [facility] 02/09/24 and 02/10/24. SDOH Health Related Social Needs: Health related social needs inadequate housing Health related social needs details old farm house Health related social needs: inadequate housing(Z59.1) Health related social needs details: old farm house
--- NOTE | 2024-02-08 15:10 | DI.RAD_ITS ---
Exam(s) XR PORTABLE CHEST AP POST LINE EXAM: XR PORTABLE CHEST AP POST LINE TECHNIQUE: 2D digital imaging was performed of the chest. Two images were obtained. AP views were obtained. COMPARISON: CR,XR XR CHEST 2V PA LATERAL from 12/04/2022 CR XR PORTABLE CHEST AP POST LINE from 02/08/2024 FINDINGS: There is poor inspiration. MEDIASTINUM: Normal. HEART: Cardiomegaly. PULMONARY VASCULATURE: Normal. LUNGS: Clear. PLEURAL SPACE: No pleural effusion or pneumothorax. BONE:Within normal limits for the patient's age. There is superior subluxation of the humeral head r elative to the glenoid in the right shoulder. The findings can be seen with large rotator cuff tear. OTHER FINDINGS:There is a right PICC line. The tip lies distal to the cavoatrial junction and should be retracted 2-3 cm. IMPRESSION: The tip of the right PICC line is seen distal to the cavoatrial junction and should be retracted 2-3 cm. Findings were discussed with the primary care team on the date of the examination. DATA REPOSITORY: RADIATION DOSE DELIVERED:
--- NOTE | 2024-02-08 15:15 | PT.INNT ---
PT Notes Visit Reasons: Left Infected diabetic foot wound Pt approached multiple times during the course of the afternoon, pt unavailable pt awaiting pic line setup, also getting ready for going home.
--- NOTE | 2024-02-08 15:19 | PGE_ITS ---
Date of Service Date of service: 02/08/24 Time of Service: 12:30 Assessment and Plan Assessment and plan (1) Osteomyelitis of left foot: Status: Acute (2) Ulcer of left foot with fat layer exposed: Status: Acute (3) Atherosclerosis of lower extremity with ulceration: Status: Acute (4) Atherosclerosis of left lower extremity with ulceration: Status: Acute (5) Diabetic foot infection: Status: Acute (6) Diabetes mellitus type 2: Status: Chronic Assessment and plan: Patient was seen and evaluated today. He is seen resting comfortably. He is pending discharge today. I recommend continuing IV antibiotics most likely for at least 6 weeks we will see response. He understands that he may still require surgical intervention. Advised to maintain his appointment with vascular. Although the CTA showed runoff to the foot minimal bleeding from the wound intraoperatively. He will benefit from a vascular procedure if that is possible and indicated to allow this wound to heal.. Dressings were changed today with packing gauze, Maxorb, 4 x 4, Kerlix, Eduin wrap. Nursing to continue dressing changes every other day. Patient is to follow-up in office with me within 1 week of discharge. Subjective Subjective Interval history since last seen: Patient was seen at bedside today resting comfortably. Offers no other pedal complaints. Exam Extrem Other: Bilateral lower extremity physical exam: Derm: Dressings noted to be intact sanguinous/purulent green drainage from the wound. Full-thickness ulceration measuring approximately 3.5 x 3.1 x 0.7 cm with a central area 1.5 x 0.8 bone exposed, resolved periwound erythema and there is edema noted no purulence noted from the wound there is warmth noted to the foot. The base of the wound is granular, he has active centrally there is bone exposed as well as fascia, periwound there is hyperkeratotic tissue there is there no proximal streaking or lymphangitis noted, there is tunneling noted circumferentially around the wound. No crepitus no bogginess noted. Skin is otherwise warm dry and supple with a small full-thickness ulceration noted to the tip of the left fifth toe. No evidence for ulcerations noted to the right foot. Vascular: DP PT pulses are nonpalpable bilaterally there is edema noted bilaterally. Hair growth absent bilaterally venous skin changes noted bilaterally. Skin is cool from the toes however warm proximally. MSK: There is tenderness to palpation noted to the left fifth metatarsal base area where the wound is. Otherwise muscle strength is normal and symmetrical for age. Pes planus foot type noted bilaterally. Neuro: Light touch sensation absent bilaterally. Patient uses a walker for ambulation. Does report paresthesias bilaterally. Objective Last Vital Signs Temp 96.1 F L 02/08/24 11:18 Pulse 68 02/08/24 11:18 Resp 15 02/08/24 11:18 BP 102/62 02/08/24 11:18 Pulse Ox 90 L 02/08/24 11:18 Laboratory Results - last 24 hr 02/08/24 05:38 WBC 8.92 RBC 4.91 Hgb 12.1 L Hct 38.2 L MCV 78 L MCH 24.6 L MCHC 31.7 L RDW 18.6 H Plt Count 201 MPV 9.4 Immature Gran % 0.6 Neutrophils % 84.4 Lymphocytes % 5.0 Monocytes % 6.7 Eosinophils % 2.9 Basophils % 0.4 Nucleated RBC % 0.0 Absolute Neutrophils 7.52 H Absolute Lymphocytes 0.45 L Absolute Monocytes 0.60 Absolute Eosinophils 0.26 Absolute Basophils 0.04 Sodium 137 Potassium 4.8 Chloride 101 Carbon Dioxide 27.1 Anion Gap 8.9 BUN 50 H Creatinine 1.7 H Est GFR (CKD-EPI 2020) 40.00 Glucose 120 H Calcium 9.1 Time Spent with Patient Time Spent with Patient: 25-34 minutes Time was spent: preparing to see the patient(eg.review tests), obtaining and/or reviewing separately otained hiistory, referring, communicating with other health behavioral health care coordinator, indepentently interpreting results, counseling the patient and care coordination
--- NOTE | 2024-02-08 15:23 | DI.RAD_ITS ---
Exam(s) XR PORTABLE CHEST AP POST LINE EXAM: XR PORTABLE CHEST AP POST LINE CLINICAL HISTORY: PICC placement TECHNIQUE: 2D digital imaging was performed of the chest. One image was obtained. An AP view was ob tained. COMPARISON: CR XR PORTABLE CHEST AP POST LINE from 02/08/2024 FINDINGS: MEDIASTINUM: Normal. HEART: Cardiomegaly. PULMONARY VASCULATURE: Normal. LUNGS: Clear. PLEURAL SPACE: No pleural effusion or pneumothorax. BONE:Within normal limits for the patient's age. OTHER FINDINGS:The tip of the PICC line has been retracted. The right PICC line tip is in good posit ion at the cavoatrial junction. IMPRESSION: The tip of the right PICC line is in good position at the cavoatrial junction. Findings were discuss ed with the primary care team on the date of the examination. DATA REPOSITORY: RADIATION DOSE DELIVERED:
[2024-02-08] MEDS: cefTRIAXone 2 GM/50 ML BAG IVPB (15:31)
[2024-02-08 15:39] VITALS: BP 112/63; PULSE 68; RESP 18; TEMP 35.6; O2SAT 90
--- NOTE | 2024-02-08 16:04 | PDOC.HHF2F ---
Home Health Referral Home Health Orders Clinical synopsis of why skilled professionals are needed: This 79 years old male patient with past medical history of diabetes on insulin, peripheral neuropathy, history of osteomyelitis of the left foot, bilateral left extremity venous insufficiency, chronic kidney disease, obstructive sleep apnea, hypertension and hyperlipidemia presented to the ED at [facility] on 02/03/2024 for evaluation of non-healing diabetic left foot wound The specimen collected in the OR on 02/04/2024 grew MRSA, Enterobacter faecalis, and Proteus. Upon multiple consultations with Dr. Servin, the patient will have to be on a 6-week course of IV antibiotics: Daptomycin 800 Mg IV daily, ceftriaxone 2 g IV daily; end date of treatment is 03/16/2024. Podiatry also defers wound care to home health to be done as follows every other day: rinsing with saline or wound cleanser, packing with 1 cm sterile wound-packing, maxorb, 4 x 4 gauze Kerlix and lito bandage.The patient will have a weekly CBC and BMP during the course of his 6-week antibiotic therapy. Medical diagnosis necessitation home health referral: This 79 years old male patient with past medical history of diabetes on insulin, peripheral neuropathy, history of osteomyelitis of the left foot, bilateral left extremity venous insufficiency, chronic kidney disease, obstructive sleep apnea, hypertension and hyperlipidemia presented to the ED at [facility] on 02/03/2024 for evaluation of non-healing diabetic left foot wound The specimen collected in the OR on 02/04/2024 grew MRSA, Enterobacter faecalis, and Proteus. Upon multiple consultations with Dr. Servin, the patient will have to be on a 6-week course of IV antibiotics: Daptomycin 800 Mg IV daily, ceftriaxone 2 g IV daily; end date of treatment is 03/16/2024. Podiatry also defers wound care to home health to be done as follows every other day: rinsing with saline or wound cleanser, packing with 1 cm sterile wound-packing, maxorb, 4 x 4 gauze Kerlix and lito bandage.The patient will have a weekly CBC and BMP during the course of his 6-week antibiotic therapy. Registered Nurse: Check all that apply Instruct on new or changed medication(s)/assess compliance: Ordered Assess for exacerbation of medical condition, instruct patient/caregivers on signs and symptoms to report for early detection: Ordered Administer injection as no willing or able caregiver and patient is unable to administer due to: PICC dressing change as per protocol Physical Therapist: Check all that apply Increase strength & endurance for safe mobility at home: Ordered To design/establish home maintenance program: Ordered Other: non-weight bearing left foot as per podiatry Occupational Therapist: Evaluate and treat for patient unable to perform ADL/IADL/self-care: Ordered Planisher: Assist with community resources: Ordered Assist with halfway care planning: Ordered Other: Complex care coordination Home Bound Status Requires the aid of supportive device (check all that apply): Walker and Other (non-weight bearing ) Encounter Date and Reason: I certify that a FTF encounter for this patient was performed on February 08, 2024 and that such encounter was related to the primary reason the patient requires home health services. The encounter was conducted in the following manner: By me as the certifying physician, POWER LINE INSTALLER AND REPAIRER, PA or By an inpatient physician, POWER LINE INSTALLER AND REPAIRER or PA during an inpatient stay who communicated findings to me, Certification And Authentication I certify that I composed the above information based on my clinical judgment relating to this patient's medical condition and, if applicable, clinical findings communicated to me by the NPP or inpatient physician who performed the FTF encounter. Name of Provider that will be monitoring home health services: Cameron Mcarthur
[2024-02-08 18:56] LABS: Creatine Kinase 74 U/L (39-308)
--- NOTE | 2024-02-12 09:54 | PDOC.CMDIS ---
Date of service: 02/12/24 Time of Service: 09:54 Care Management Discharge Plan Reason for Hospitalization: Left infected diabetic foot wound SDOH Health Related Social Needs: Health related social needs inadequate housing Health related social needs details old farm house Health related social needs: inadequate housing(Z59.1) Health related social needs details: old farm house
== END 2024-02-08 17:01 | disposition home health service (06) | DRG 264 ==
LOC: ER 14:50 → MS 16:24
PROVIDERS: Nurse Practitioner Acute Care; Podiatrist; Admitting Provider Family Medicine; Emergency Provider Emergency Medicine; PCP Family Medicine; Visit Provider Family Medicine
PROC: 0J9R0ZZ Drainage of Left Foot Subcutaneous Tissue and Fascia, Open Approach (ICD-10-PCS; CPT 10060; principal; 2024-02-04 10:00)
DX: E11.51 Type 2 diabetes mellitus with diabetic peripheral angiopathy without gangrene (principal); L02.612 Cutaneous abscess of left foot; M86.8X7 Other osteomyelitis, ankle and foot; E11.69 Type 2 diabetes mellitus with other specified complication; I70.245 Atherosclerosis of native arteries of left leg with ulceration of other part of foot; E11.628 Type 2 diabetes mellitus with other skin complications; E11.42 Type 2 diabetes mellitus with diabetic polyneuropathy; E11.22 Type 2 diabetes mellitus with diabetic chronic kidney disease; I12.9 Hypertensive chronic kidney disease with stage 1 through stage 4 chronic kidney disease, or unspecified chronic kidney disease; G47.33 Obstructive sleep apnea (adult) (pediatric); L97.522 Non-pressure chronic ulcer of other part of left foot with fat layer exposed; E66.01 Morbid (severe) obesity due to excess calories; E83.42 Hypomagnesemia; G25.81 Restless legs syndrome; M48.061 Spinal stenosis, lumbar region without neurogenic claudication; L60.3 Nail dystrophy; M21.372 Foot drop, left foot; M21.371 Foot drop, right foot; I44.0 Atrioventricular block, first degree; Z96.653 Presence of artificial knee joint, bilateral; N40.0 Benign prostatic hyperplasia without lower urinary tract symptoms; E78.5 Hyperlipidemia, unspecified; Z79.4 Long term (current) use of insulin; K76.0 Fatty (change of) liver, not elsewhere classified; R26.81 Unsteadiness on feet; N18.30 Chronic kidney disease, stage 3 unspecified; I25.10 Atherosclerotic heart disease of native coronary artery without angina pectoris; I25.2 Old myocardial infarction; Z96.642 Presence of left artificial hip joint; Z95.5 Presence of coronary angioplasty implant and graft; B96.89 Other specified bacterial agents as the cause of diseases classified elsewhere; B96.4 Proteus (mirabilis) (morganii) as the cause of diseases classified elsewhere; B95.62 Methicillin resistant Staphylococcus aureus infection as the cause of diseases classified elsewhere; K59.00 Constipation, unspecified
CPT/HCPCS: 10060; 11043; 00123; 36410; 36415; 36573; 71045; 75635; 80048; 80053; 82550; 84145; 85027; 85652; 87040; 87077; 96365; 97110; 97162; 97530; 99223; 99285; J1650; 73630; 73720; 83735; 85025; 85610; 85730; 86140; 87070; 87075; 87186; 87205; 94640; 94760; 99233; 99239; J0692; J0696; J0878; J1100; J1815; J2001; J2405; J2704; J2997; J3475; J3490; Q9967

== ENCOUNTER 2024-02-15 13:02 | Outpatient (REF) | payer MEDICARE, SELFPAY ==
[2024-02-15 13:13] LABS: ALT 90 U/L (16-63); AST 264 U/L (15-37); Albumin 2.7 g/dL (3.4-5.0); Alkaline Phosphatase 106 U/L (46-116); BUN 57 mg/dL (7-18); Bilirubin, Total 0.2 mg/dL (0.2-1.0); CREATININE 1.6 mg/dL (0.70-1.30); Calcium 8.5 mg/dL (8.5-10.1); Chloride 106 mmol/L (98-107); Estimated GFR 43.02 (mL/min/1.73m2); Glucose 130 mg/dL (74-106); Potassium 5.2 mmol/L (3.5-5.1); Sodium 141 mmol/L (136-145)
[2024-02-16 14:13] LABS: HCT 36.3 % (40.0-50.0); MCHC 30.3 % (32.0-36.0); MCV 83 fL (80-95); MPV 11.4 fL (8.0-11.0); Platelet Count 166 10^3/uL (130-400); RDW 19.5 % (11.8-14.1); RDW-SD 57.8 fL; WBC 7.52 10^3/uL (4.4-10.8)
[2024-02-16 14:35] LABS: Creatine Kinase 4673 U/L (39-308)
== END 2024-02-15 13:03 | disposition home or self-care (01) ==
LOC: NCHCN 13:02
PROVIDERS: PCP Family Medicine; Visit Provider Family Medicine
DX: E11.9 Type 2 diabetes mellitus without complications (principal); E78.5 Hyperlipidemia, unspecified; E11.621 Type 2 diabetes mellitus with foot ulcer
CPT/HCPCS: 80053; 82550; 85027

== ENCOUNTER 2024-02-16 17:57 | Outpatient (REF) | payer MEDICARE, SELFPAY ==
[2024-02-16 16:57] LABS: C-Reactive Protein 6.41 mg/dL (<or=0.5)
[2024-02-16 18:32] LABS: Creatine Kinase 6235 U/L (39-308)
== END 2024-02-16 17:58 | disposition home or self-care (01) ==
LOC: LBN 17:57
PROVIDERS: PCP Family Medicine; Visit Provider Internal Medicine Infectious Disease
DX: M86.8X7 Other osteomyelitis, ankle and foot (principal); R79.82 Elevated C-reactive protein (CRP)
CPT/HCPCS: 82550; 85025; 86140

== ENCOUNTER 2024-02-17 12:23 | Inpatient (IN) | payer MEDICARE, SELFPAY ==
--- NOTE | 2024-02-17 12:15 | RT.EKG_ITS ---
APPROVED REPORT Exam: Resting ECG Reason for Exam: hyper k Patient Location: E HR:77 bpm ECG Measurements Heart Rate 77 AXIS TX 401 P 209 QRSd 95 QRS -21 QT 379 T -1 QTc 423 Conclusion Sinus 77 1st degree block no STemi
[2024-02-17 12:31] VITALS: BP 154/82; PULSE 78; RESP 20; O2SAT 94
[2024-02-17 13:00] LABS: ESR 46 mm/hr (0-20)
[2024-02-17] MEDS: Normal Saline 1,000 ML 1000 ML IV (13:08)
[2024-02-17 13:28] LABS: ALT 163 U/L (16-63); AST 510 U/L (15-37); Albumin 2.9 g/dL (3.4-5.0); Alkaline Phosphatase 106 U/L (46-116); Anion Gap 9.7 mmol/L (3-11); BUN 42 mg/dL (7-18); Bilirubin, Total 0.4 mg/dL (0.2-1.0); CO2 25.3 mmol/L (21.0-32.0); CREATININE 1.4 mg/dL (0.70-1.30); Calcium 9.2 mg/dL (8.5-10.1); Chloride 105 mmol/L (98-107); Estimated GFR 50.49 (mL/min/1.73m2); Glucose 100 mg/dL (74-106); Magnesium 1.8 mg/dL (1.8-2.4); Potassium 5.1 mmol/L (3.5-5.1); Sodium 140 mmol/L (136-145); Total Protein 7.2 g/dL (6.4-8.2)
[2024-02-17 13:39] LABS: Creatine Kinase 8123 U/L (39-308)
[2024-02-17 13:45] LABS: Abs Immature Grans 0.04 10^3/uL (0.0-0.06); Absolute Basophil Count 0.03 10^3/uL (0.0-0.2); Absolute Eosinophil Count 0.25 10^3/uL (0.0-0.7); Absolute Lymphocyte Count 0.53 10^3/uL (1.2-3.4); Absolute Monocyte Count 0.39 10^3/uL (0.1-0.8); Absolute Neutrophil Count 6.48 10^3/uL (1.2-6.7); Basophils % 0.4; Eosinophils % 3.2; HCT 37.5 % (40.0-50.0); HGB 11.5 g/dL (13.5-17.5); Immature Grans % 0.5; Lymphocytes % 6.9; MCH 24.6 pg (27.0-33.0); MCHC 30.7 % (32.0-36.0); MCV 80 fL (80-95); MPV 9.9 fL (8.0-11.0); Monocytes % 5.1; Neutrophils % 83.9; Platelet Count 169 10^3/uL (130-400); RBC 4.68 10^6/uL (4.36-5.78); RDW 19.1 % (11.8-14.1); RDW-SD 55.5 fL; WBC 7.72 10^3/uL (4.4-10.8)
[2024-02-17 13:49] LABS: C-Reactive Protein 4.92 mg/dL (<or=0.5)
[2024-02-17 13:55] LABS: INR 1.2 (0.9-1.1); PTT Activated 34.9 sec (23.6-32.8); Prothrombin Time 11.7 sec (9.1-11.1)
[2024-02-17 14:10] LABS: Procalcitonin < 0.1 ng/mL
[2024-02-17] MEDS: rOPINIRole 0.5 MG TAB 1 MG PO ×2 (14:40)
[2024-02-17 14:55] VITALS: BP 175/74; PULSE 77; RESP 16; O2SAT 96
[2024-02-17] MEDS: VANCOMYCIN/WATER (PEG) 1.25 GM/250 ML BAG IVPB (14:56)
--- NOTE | 2024-02-17 14:56 | W.ED.GENAD ---
Discharge Plan Disposition Patient Disposition: Admit to [facility] Condition: Stable Discharge Details Chief Complaint: Cellulitis Clinical Impression: Abnormal LFTs, Diabetes mellitus type 2, Elevated CPK, Osteomyelitis of left foot Primary Care Provider: Cameron Mcarthur ED Provider: Malachi Thorpe Home Meds and New Rx's Prescriptions: No Action magnesium oxide 400 mg (241.3 mg magnesium) tablet 800 mg PO DAILY insulin glargine [Lantus U-100 Insulin] 100 unit/mL solution 25 unit subcut QHS Patient Comments: pt. took 25 units vitamin B complex [B Complex-Vitamin B12] Tablet 1 tab PO DAILY aspirin 81 mg tablet,delayed release (DR/EC) 81 mg PO DAILY pantoprazole 40 mg tablet,delayed release (DR/EC) 40 mg PO DAILY pregabalin 200 mg capsule 200 mg PO QHS Qty: 90 3RF pregabalin 100 mg capsule 100 mg PO .COMPLEX Qty: 180 3RF Rx Instructions: 100 mg orally daily in am with an extra 100mg at noon prn neuropathy pain; ketoconazole 2 % cream 1 applic topical DAILY PRN Jardiance 25 mg tablet 25 mg PO DAILY fluticasone propionate 50 mcg/actuation spray,suspension 1 spray intranasal DAILY PRN (Reason: nasal congestion) Rx Instructions: administer into each nostril doxazosin [Cardura] 4 mg tablet 4 mg PO QPM penicillin V potassium 500 mg tablet 500 mg PO TID Qty: 273 3RF Rx Instructions: take 1 tablet by mouth three times daily (DME) AFO custom See Rx Instructions .Route .MEDSUPPLY Qty: 1 0RF Hold Instructions: Pt Stopped/Never Started Rx Instructions: As directed losartan [Cozaar] 100 MG tablet 100 mg PO DAILY insulin lispro [Humalog KwikPen Insulin] 100 unit/mL insulin pen See Rx Instructions subcut .SLIDING SCALE Patient Comments: pt. reports taking 15 units Rx Instructions: subcutaneously SLIDING SCALE; bolus range of 15-25u at 2 meals a day (SQ SLIDING SCALE); ropinirole 2 mg tablet 2 mg PO .nightly ferrous sulfate [FeroSul] 325 mg (65 mg iron) tablet 325 mg PO DAILY Patient Comments: TAKE ONE TABLET BY MOUTH EVERY DAY metformin 500 mg tablet 500 mg PO BID Patient Comments: TAKE ONE TABLET BY MOUTH TWICE A DAY baclofen 5 mg tablet 5 mg PO HS Patient Comments: TAKE ONE TABLET BY MOUTH AT BEDTIME ropinirole 1 mg tablet 1 mg PO TID Rx Instructions: 1mg at noon, 2PM, and 6PM acetaminophen 500 mg tablet 1,000 mg PO TID PRN ceftriaxone 2 gram recon soln 2 g IV DAILY daptomycin 500 mg recon soln 800 mg IV Q24H Rx Instructions: administer over 30 mins hydrochlorothiazide 50 MG tablet 50 mg PO DAILY Qty: 0 0RF carvedilol 25 mg tablet 25 mg PO BID HPI General Date/Time Provider Initiated Documentation: 02/17/24 12:24. Limitations to Documentation: no limitations. Information obtained by: patient. HPI Narrative: 79-year-old gentleman with past medical history of diabetes, foot infection with osteomyelitis on IV antibiotics, hypertension, CKD presents for evaluation of abnormal lab work. Patient is followed by infectious disease at [facility] for his ongoing osteomyelitis. He currently has a PICC line and has been receiving daptomycin. There was concern for development of a rash. The rash started 5 days ago. He reports that it was generalized red spots. He states that he was very itchy. He says that the rash has now gone away. He did not take any medications for this. He had lab work done 2 days ago and it was concerning for significant elevations in LFTs and CPK. He was sent by infectious disease for further evaluation. Related Data Home Medications Medication Instructions Recorded Confirmed losartan 100 mg tablet (Cozaar) 100 mg PO DAILY 11/01/13 02/17/24 hydrochlorothiazide 50 mg tablet 50 mg PO DAILY #0 tab-caps 02/20/20 02/17/24 carvedilol 25 mg tablet 25 mg PO BID 01/16/21 02/17/24 doxazosin 4 mg tablet (Cardura) 4 mg PO QPM 02/06/22 02/17/24 magnesium oxide 400 mg (241.3 mg 800 mg PO DAILY 07/21/22 02/17/24 magnesium) tablet vitamin B complex (B 1 tab PO DAILY 09/25/22 02/17/24 Complex-Vitamin B12 tablet) penicillin V potassium 500 mg 500 mg PO TID #273 tabs 12/25/22 02/17/24 tablet insulin glargine 100 unit/mL 25 unit subcut QHS 04/01/23 02/17/24 subcutaneous solution (Lantus U-100 Insulin) insulin lispro 100 unit/mL See Rx Instructions subcut 04/01/23 02/17/24 subcutaneous pen (Humalog KwikPen .SLIDING SCALE (U-100) Insulin) fluticasone propionate 50 1 spray intranasal DAILY PRN nasal 05/28/23 02/17/24 mcg/actuation nasal congestion spray,suspension AFO #1 ea 08/10/23 02/17/24 aspirin 81 mg tablet,delayed 81 mg PO DAILY 09/08/23 02/17/24 release pantoprazole 40 mg tablet,delayed 40 mg PO DAILY 09/23/23 02/17/24 release pregabalin 100 mg capsule 100 mg PO .COMPLEX #180 caps 11/16/23 02/17/24 pregabalin 200 mg capsule 200 mg PO QHS #90 caps 11/16/23 02/17/24 empagliflozin 25 mg tablet 25 mg PO DAILY 12/25/23 02/17/24 (Jardiance) ketoconazole 2 % topical cream 1 applic topical DAILY PRN 12/25/23 02/17/24 acetaminophen 500 mg tablet 1,000 mg PO TID PRN 02/04/24 02/17/24 baclofen 5 mg tablet 5 mg PO HS 02/04/24 02/17/24 ferrous sulfate 325 mg (65 mg 325 mg PO DAILY 02/04/24 02/17/24 iron) tablet (FeroSul) metformin 500 mg tablet 500 mg PO BID 02/04/24 02/17/24 ropinirole 1 mg tablet 1 mg PO TID 02/04/24 02/17/24 ropinirole 2 mg tablet 2 mg PO .nightly 02/04/24 02/17/24 ceftriaxone 2 gram intravenous 2 g IV DAILY 02/08/24 02/17/24 solution daptomycin 500 mg intravenous 800 mg IV Q24H 02/08/24 02/17/24 solution Previous Rx's Medication Instructions Recorded hydrochlorothiazide 50 mg tablet 50 mg PO DAILY #0 tab-caps 02/20/20 penicillin V potassium 500 mg 500 mg PO TID #273 tabs 12/25/22 tablet AFO #1 ea 08/10/23 pregabalin 100 mg capsule 100 mg PO .COMPLEX #180 caps 11/16/23 pregabalin 200 mg capsule 200 mg PO QHS #90 caps 11/16/23 ceftriaxone 2 gram intravenous 2 g IV DAILY 02/08/24 solution daptomycin 500 mg intravenous 800 mg IV Q24H 02/08/24 solution Allergies Allergy/AdvReac Type Severity Reaction Status Date / Time amlodipine besylate AdvReac Mild edema Verified 02/17/24 12:34 [From Norvasc] enalapril maleate AdvReac Mild cough Verified 02/17/24 12:34 [From Vasotec] enalaprilat dihydrate AdvReac Mild cough Verified 02/17/24 12:34 [From Vasotec] pravastatin sodium AdvReac Mild myalgia Verified 02/17/24 12:34 [From Pravachol] from Lipitor rosuvastatin [From Crestor] AdvReac Mild Myalgia Verified 02/17/24 12:34 General Stated Complaint: Cellulitis TONG: 3 Exam Narrative Exam Narrative: Review of Systems: All systems reviewed & are unremarkable except as noted in HPI and below Well-developed, no acute distress NCAT PERRL, normal conjunctiva RRR, no murmur Unlabored respiratory effort, clear bilaterally Nondistended abdomen , soft nontender There is some erythema noted to the face, but patient reports that this is his baseline appearance, otherwise there is no evidence of a generalized rash There is bruising noted to the abdomen from injections Bilateral lower extremities with chronic venous stasis changes, there is some chronic erythema to the lower extremities, the left foot has a wound with granulation tissue, no foul smell or significant drainage no focal neurologic deficits Appropriate mood and affect Course Vital Signs Vital signs: Vital Signs Pulse 78 02/17/24 12:31 Respiratory Rate 20 02/17/24 12:31 Blood Pressure 154/82 H 02/17/24 12:31 Pulse Oximetry 94 02/17/24 12:31 Pulse 77 02/17/24 14:55 Respiratory Rate 16 02/17/24 14:55 Respiratory Effort Normal, Non-Labored 02/17/24 12:33 Blood Pressure 175/74 H 02/17/24 14:55 Blood Pressure Position Sitting 02/17/24 12:31 Pulse Oximetry 96 02/17/24 14:55 Oxygen Delivery Method Room Air 02/17/24 14:55 Oxygen Flow Rate 0 02/17/24 14:55 Pain Level 0 02/17/24 14:55 Comment only pain when moving foot 02/17/24 12:31 Lab/Test Results Lab/Test Results: 02/17/24 13:23 Blood Blood Culture - Pending 02/17/24 13:15 Blood Blood Culture - Pending Laboratory Tests Range/Units 02/17/24 02/17/24 12:45 13:23 WBC (4.4-10.8) 10^3/uL 7.72 RBC (4.36-5.78) 10^6/uL 4.68 Hgb (13.5-17.5) g/dL 11.5 L Hct (40.0-50.0) % 37.5 L MCV (80-95) fL 80 MCH (27.0-33.0) pg 24.6 L MCHC (32.0-36.0) % 30.7 L RDW (11.8-14.1) % 19.1 H Plt Count (130-400) 10^3/uL 169 MPV (8.0-11.0) fL 9.9 Immature Gran % 0.5 Neutrophils % 83.9 Lymphocytes % 6.9 Monocytes % 5.1 Eosinophils % 3.2 Basophils % 0.4 Nucleated RBC % (0.0-0.3) % 0.0 Absolute Neutrophils (1.2-6.7) 10^3/uL 6.48 Absolute Lymphocytes (1.2-3.4) 10^3/uL 0.53 L Absolute Monocytes (0.1-0.8) 10^3/uL 0.39 Absolute Eosinophils (0.0-0.7) 10^3/uL 0.25 Absolute Basophils (0.0-0.2) 10^3/uL 0.03 ESR (0-20) mm/hr 46 H PT (9.1-11.1) sec 11.7 H INR (0.9-1.1) 1.2 H APTT (23.6-32.8) sec 34.9 H Sodium (136-145) mmol/L 140 Potassium (3.5-5.1) mmol/L 5.1 Chloride (98-107) mmol/L 105 Carbon Dioxide (21.0-32.0) mmol/L 25.3 Anion Gap (3-11) mmol/L 9.7 BUN (7-18) mg/dL 42 H Creatinine (0.70-1.30) mg/dL 1.4 H Est GFR (CKD-EPI 2020) (mL/min/1.73m2) 50.49 Glucose (74-106) mg/dL 100 Calcium (8.5-10.1) mg/dL 9.2 Magnesium (1.8-2.4) mg/dL 1.8 Total Bilirubin (0.2-1.0) mg/dL 0.4 AST (15-37) U/L 510 H ALT (16-63) U/L 163 H Alkaline Phosphatase (46-116) U/L 106 Creatine Kinase (39-308) U/L 8123 H C-Reactive Protein (<or=0.5) mg/dL 4.92 H Total Protein (6.4-8.2) g/dL 7.2 Albumin (3.4-5.0) g/dL 2.9 L Procalcitonin ng/mL < 0.1 Medical Decision Making Emergent evaluation of osteomyelitis. The patient was discussed with Dr. Brooke Servin, infectious disease at [facility]. She is familiar with the patient. The concern is possibly for dress given the rash with the change in liver enzymes. The patient has been on daptomycin and oral levofloxacin. The oral levofloxacin was started on Thursday after being changed from Rocephin. She would like to have labs repeated and got the daptomycin. Lab work was repeated. Again less likely to be dress given that eosinophils are normal and the rash has resolved. However today the LFTs are continuing to increase and the CPK is now over 8000. His renal function appears to be at baseline. Inflammatory markers are improving slightly. Discussed again with Dr. Servin. She recommends admission, IV fluids, starting the vancomycin and monitoring lab work until the LFTs improve and the CPK begins to downtrend. She recommends continuing vancomycin at 1250 mg q. 24 and the oral levofloxacin at 750 mg daily. Updated patient on the plan. Discussed with the hospitalist and the patient will be admitted to their service for further management. Medical Records Medical records reviewed: Yes I reviewed the patient's medical records. Lab Data Lab results reviewed: Yes I reviewed the patient's lab results. ECG Data Attestation: I personally reviewed and interpreted this ECG (s) as follows: Interpretation: Sinus 77, normal axis, QTc 423 Quality:SDOH Health Related Social Needs: Health related social needs inadequate housing Health related social needs details old [place] house [facility] All Active Problems (Updated 02/17/24 @ 15:06 by Malachi Thorpe MD) Elevated CPK (Acute) Atherosclerosis of left lower extremity with ulceration (Acute) Diabetic foot infection (Acute) Atherosclerosis of artery of both lower extremities (Acute) Ulcer of left foot with fat layer exposed (Acute) Osteomyelitis of left foot (Acute) Restless leg syndrome (Acute) DVT (deep venous thrombosis) (Chronic) Venous ulcer-leg syndrome, bilateral (Acute) Onychogryphosis (Acute) Venous insufficiency of both lower extremities (Acute) Ulcer of right foot with fat layer exposed (Acute) Controlled type 2 diabetes mellitus with ulcer of toe (Acute) Atherosclerosis of [place] arteries of right leg with ulceration of ankle (Acute) Impacted cerumen, bilateral (Acute) Ulcer of extremity due to chronic venous insufficiency (Acute) Pneumonia (Acute) Nail dystrophy (Acute) Lumbar stenosis (Acute) Carpal tunnel syndrome of left wrist (Acute) Bilateral hand numbness (Acute) Foot drop, bilateral (Acute) Left sided sciatica (Acute) Impairment of speech discrimination (Acute) Asymmetrical sensorineural hearing loss (Acute) Onychomycosis (Acute) DVT prophylaxis (Acute) Sepsis (Acute) Infection of total right knee replacement (Acute) S/p irrigation and debridement; poly exchange; arthrotomy repair DOS: 10/04/2021 Advance care planning (Acute) Bacteremia (Acute) Asymmetrical sensorineural hearing loss (Acute) History of total right knee replacement (Acute 01/16/21) First degree heart block (Acute) DVT prophylaxis (Acute) Cellulitis (Acute) History of total left knee replacement (TKR) (Acute 12/14/19) Dr. Wilson s/p debridement and poly exchange 02/10/20 Hypertension (Chronic) Tubular adenoma of colon (Acute 09/02/16) Tubulovillous adenoma polyp of colon (Chronic) Noted by colonoscopy. Chest pain, rule out acute myocardial infarction (Acute 11/01/13) Abnormal LFTs (Chronic) Secondary to fartty infiltrate of the liver. Diabetic renal disease (Chronic) Benign hypertension (Chronic) Obesity (Chronic) Benign prostatic hyperplasia (Chronic) Obstructive sleep apnea syndrome (Chronic) Nocturnal CPAP Hyperlipidemia (Chronic) Diabetes mellitus type 2 (Chronic) Since approximately 1997. On insulin thereapy. Last hemoglobin A1c 6.5% March 2013. 11-01-2013: Most recent hemoglobin A1c was 6.6 ? date. Medical History Constipation Diabetic neuropathy Renal insufficiency Low blood magnesium (11/01/13) Paresthesias Fatty infiltration of liver Erectile dysfunction Foot drop Unsteady gait History of removal of joint prosthesis of right knee due to infection CKD (chronic kidney disease), stage III Microalbuminuria Diabetic polyneuropathy Morbid obesity Sleep apnea BPH (benign prostatic hyperplasia) Myalgia Perennial allergic rhinitis Vertigo Palliative care patient Hearing loss Chronic lower back pain Osteoarthritis Venous insufficiency Sleep apnea with use of continuous positive airway pressure (CPAP) History of seizures as a child Hx of myocardial infarction 10/2011 STRESS TEST COMPLETED 11/29/2019 Hyperlipidemia CAD (coronary artery disease) Cellulitis RIGHT LOWER LEG Diabetes Arthritis Surgical History History of total left hip arthroplasty (07/29/23) Carpal tunnel syndrome of right wrist S/P ECTR: 10/28/2022 H/O total knee replacement left knee 12/14/2019, right knee 01/16/2021 History of tonsillectomy and adenoidectomy H/O heart artery stent X2 2013 colonoscopy (09/02/16) Family History Maternal Aunt Colon cancer Maternal Aunt Colon cancer Father , 70s Heart disease Mother Lung cancer Brother Liver failure Son , tractor accident Accident caused by farm tractor Social History Smoking/Tobacco Use Status: Never Smoking risk assessment performed?: Yes Alcohol Intake: never Drug use: Never Substance use type: does not use Housing: house Do you feel safe at home: Yes Do you feel safe in your relationship?: Yes Additional Social history: unable to assess to privately
--- NOTE | 2024-02-17 15:06 | HPE_ITS ---
Date of service: 02/17/24 Time of Service: 15:06 Assessment and Plan Assessment and plan (1) Rhabdomyolysis: Status: Acute Assessment and plan: admit to med/surg trend labs IV hydration (last EF 55-60% with no WMA's) avoid nephrotoxic medications thought d/t daptomycin (2) Rash: Status: Resolved Assessment and plan: less likely to be DRESS given that eosinophils are normal and the rash has resolved. dapto and ceftriaxone both stopped monitor (3) Transaminitis: Status: Acute Assessment and plan: concern is possibly for DRESS given the rash with the change in liver enzymes but less likely now with rash resolved. dapto stopped. will add acute hepatitis panel and monitor. avoid heptatoxic medications (4) Osteomyelitis of left foot: Status: Acute Assessment and plan: followed by podiatry and ID at [facility] recommendations for IV vanco and levaquin. will place podiatry consult for continuity of care, dressing recommendations (5) Restless leg syndrome: Status: Acute Assessment and plan: continue home medications (6) Diabetes mellitus type 2: Status: Chronic Assessment and plan: diabetic diet, home basal insulin, may need to adjust while hospitalized. check blood sugars ac/hs and provide ss coverage. holding oral diabetic agents in setting of rhabdo and CKD monitor closely (7) Obstructive sleep apnea syndrome: Status: Chronic Assessment and plan: home cpap (8) Benign prostatic hyperplasia: Status: Chronic Assessment and plan: continue home medication and monitor for retention (9) Benign hypertension: Status: Chronic Assessment and plan: holding hctz in setting of ckd and rhabdo continue carvedilol and monitor (10) CKD (chronic kidney disease), stage III: Status: Acute Assessment and plan: creatinine at baseline providing IV hydration in setting of rhabdo monitor closely avoid nephrotoxic drugs (11) DVT prophylaxis: Status: Acute Assessment and plan: enoxaparin daily History of Present Illness History of Present Illness Chief Complaint: rash Narrative: This is an 79-year-old male patient with a history of diabetes with diabetic foot infection and osteomyelitis of the left foot followed by podiatry here and ID at [facility] who has been receiving IV daptomycin and ceftriaxone. He developed a rash and labs were checked which did show elevated CPK and transaminitis. The rash has resolved and ID does not think this is associated with dress syndrome. They have been monitoring his CPK which has elevated now to 8000. He was advised to come to the emergency department for IV hydration and evaluation. His foot wound appears to be responding well to the antibiotic therapy. His case was discussed with ID and their recommendations are to discontinue the daptomycin initiate vancomycin 1250 IV twice daily to continue ceftriaxone and to trend CPK and liver functions. They feel these will improve off the daptomycin. The patient has been afebrile and denies any other complaints Review of Systems All systems reviewed & are unremarkable except as noted in HPI and below PFSH All Active Problems (Updated 02/17/24 @ 15:19 by Denise Mathur NP) CKD (chronic kidney disease), stage III (Acute) Transaminitis (Acute) Rhabdomyolysis (Acute) Elevated CPK (Acute) Atherosclerosis of left lower extremity with ulceration (Acute) Diabetic foot infection (Acute) Atherosclerosis of artery of both lower extremities (Acute) Ulcer of left foot with fat layer exposed (Acute) Osteomyelitis of left foot (Acute) Restless leg syndrome (Acute) DVT (deep venous thrombosis) (Chronic) Venous ulcer-leg syndrome, bilateral (Acute) Onychogryphosis (Acute) Venous insufficiency of both lower extremities (Acute) Ulcer of right foot with fat layer exposed (Acute) Controlled type 2 diabetes mellitus with ulcer of toe (Acute) Atherosclerosis of [place] arteries of right leg with ulceration of ankle (Acute) Impacted cerumen, bilateral (Acute) Ulcer of extremity due to chronic venous insufficiency (Acute) Pneumonia (Acute) Nail dystrophy (Acute) Lumbar stenosis (Acute) Carpal tunnel syndrome of left wrist (Acute) Bilateral hand numbness (Acute) Foot drop, bilateral (Acute) Left sided sciatica (Acute) Impairment of speech discrimination (Acute) Asymmetrical sensorineural hearing loss (Acute) Onychomycosis (Acute) DVT prophylaxis (Acute) Sepsis (Acute) Infection of total right knee replacement (Acute) S/p irrigation and debridement; poly exchange; arthrotomy repair DOS: 10/04/2021 Advance care planning (Acute) Bacteremia (Acute) Asymmetrical sensorineural hearing loss (Acute) History of total right knee replacement (Acute 01/16/21) First degree heart block (Acute) DVT prophylaxis (Acute) Cellulitis (Acute) History of total left knee replacement (TKR) (Acute 12/14/19) Dr. Wilson s/p debridement and poly exchange 02/10/20 Hypertension (Chronic) Tubular adenoma of colon (Acute 09/02/16) Tubulovillous adenoma polyp of colon (Chronic) Noted by colonoscopy. Chest pain, rule out acute myocardial infarction (Acute 11/01/13) Abnormal LFTs (Chronic) Secondary to fartty infiltrate of the liver. Diabetic renal disease (Chronic) Benign hypertension (Chronic) Obesity (Chronic) Benign prostatic hyperplasia (Chronic) Obstructive sleep apnea syndrome (Chronic) Nocturnal CPAP Hyperlipidemia (Chronic) Diabetes mellitus type 2 (Chronic) Since approximately 1997. On insulin thereapy. Last hemoglobin A1c 6.5% March 2013. 11-01-2013: Most recent hemoglobin A1c was 6.6 ? date. Medical History Constipation Diabetic neuropathy Renal insufficiency Low blood magnesium (11/01/13) Paresthesias Fatty infiltration of liver Erectile dysfunction Foot drop Unsteady gait History of removal of joint prosthesis of right knee due to infection CKD (chronic kidney disease), stage III Microalbuminuria Diabetic polyneuropathy Morbid obesity Sleep apnea BPH (benign prostatic hyperplasia) Myalgia Perennial allergic rhinitis Vertigo Palliative care patient Hearing loss Chronic lower back pain Osteoarthritis Venous insufficiency Sleep apnea with use of continuous positive airway pressure (CPAP) History of seizures as a child Hx of myocardial infarction 10/2011 STRESS TEST COMPLETED 11/29/2019 Hyperlipidemia CAD (coronary artery disease) Cellulitis RIGHT LOWER LEG Diabetes Arthritis Surgical History History of total left hip arthroplasty (07/29/23) Carpal tunnel syndrome of right wrist S/P ECTR: 10/28/2022 H/O total knee replacement left knee 12/14/2019, right knee 01/16/2021 History of tonsillectomy and adenoidectomy H/O heart artery stent X2 2014 colonoscopy (09/02/16) Family History Maternal Aunt Colon cancer Maternal Aunt Colon cancer Father , 70s Heart disease Mother Lung cancer Brother Liver failure Son , tractor accident Accident caused by farm tractor Social History Smoking/Tobacco Use Status: Never Smoking risk assessment performed?: Yes Alcohol Intake: never Drug use: Never Substance use type: does not use Housing: house Do you feel safe at home: Yes Do you feel safe in your relationship?: Yes Additional Social history: unable to assess to privately Meds Allergies and Home Medications Allergies Allergy/AdvReac Type Severity Reaction Status Date / Time amlodipine besylate AdvReac Mild edema Verified 02/17/24 12:34 [From Norvasc] enalapril maleate AdvReac Mild cough Verified 02/17/24 12:34 [From Vasotec] enalaprilat dihydrate AdvReac Mild cough Verified 02/17/24 12:34 [From Vasotec] pravastatin sodium AdvReac Mild myalgia Verified 02/17/24 12:34 [From Pravachol] from Lipitor rosuvastatin [From Crestor] AdvReac Mild Myalgia Verified 02/17/24 12:34 Home Medications Medication Instructions Recorded Confirmed Type losartan 100 mg tablet (Cozaar) 100 mg PO DAILY 11/01/13 02/17/24 History hydrochlorothiazide 50 mg tablet 50 mg PO DAILY #0 tab-caps 02/20/20 02/17/24 Rx carvedilol 25 mg tablet 25 mg PO BID 01/16/21 02/17/24 History doxazosin 4 mg tablet (Cardura) 4 mg PO QPM 02/06/22 02/17/24 History magnesium oxide 400 mg (241.3 mg 800 mg PO DAILY 07/21/22 02/17/24 History magnesium) tablet vitamin B complex (B 1 tab PO DAILY 09/25/22 02/17/24 History Complex-Vitamin B12 tablet) penicillin V potassium 500 mg 500 mg PO TID #273 tabs 12/25/22 02/17/24 Rx tablet insulin glargine 100 unit/mL 25 unit subcut QHS 04/01/23 02/17/24 History subcutaneous solution (Lantus U-100 Insulin) insulin lispro 100 unit/mL See Rx Instructions subcut 04/01/23 02/17/24 History subcutaneous pen (Humalog KwikPen .SLIDING SCALE (U-100) Insulin) fluticasone propionate 50 1 spray intranasal DAILY PRN nasal 05/28/23 02/17/24 History mcg/actuation nasal congestion spray,suspension AFO #1 ea 08/10/23 02/17/24 Rx aspirin 81 mg tablet,delayed 81 mg PO DAILY 09/08/23 02/17/24 History release pantoprazole 40 mg tablet,delayed 40 mg PO DAILY 09/23/23 02/17/24 History release pregabalin 100 mg capsule 100 mg PO .COMPLEX #180 caps 11/16/23 02/17/24 Rx pregabalin 200 mg capsule 200 mg PO QHS #90 caps 11/16/23 02/17/24 Rx empagliflozin 25 mg tablet 25 mg PO DAILY 12/25/23 02/17/24 History (Jardiance) ketoconazole 2 % topical cream 1 applic topical DAILY PRN 12/25/23 02/17/24 History acetaminophen 500 mg tablet 1,000 mg PO TID PRN 02/04/24 02/17/24 History baclofen 5 mg tablet 5 mg PO HS 02/04/24 02/17/24 History ferrous sulfate 325 mg (65 mg 325 mg PO DAILY 02/04/24 02/17/24 History iron) tablet (FeroSul) metformin 500 mg tablet 500 mg PO BID 02/04/24 02/17/24 History ropinirole 1 mg tablet 1 mg PO TID 02/04/24 02/17/24 History ropinirole 2 mg tablet 2 mg PO .nightly 02/04/24 02/17/24 History ceftriaxone 2 gram intravenous 2 g IV DAILY 02/08/24 02/17/24 Rx solution daptomycin 500 mg intravenous 800 mg IV Q24H 02/08/24 02/17/24 Rx solution Exam Const General: cooperative, healthy appearing and no acute distress Nutritional Appearance: obese Orientation: alert, awake and oriented x3 HENMT Head: normal to inspection, normocephalic and atraumatic Ears: external ears normal General nose exam: external nose normal Face and sinus: normal facial exam Mouth: moist mucous membranes Eyes General: appearance normal, both eyes and all related structures Neck Neck: normal visual inspection Chest Chest: normal inspection of the chest Resp Effort & Inspection: normal respiratory effort and able to speak in complete sentences Cardio Rate: regular rate GI Inspection: normal to inspection Skin Lesions: lesion noted (Dressing is clean dry and intact) Neuro General: patient alert and patient oriented x3 Psych Mental Status: mental status grossly normal Results Labs 02/17/24 12:45 02/17/24 12:45 Labs: Laboratory Results - last 24 hr 02/17/24 02/17/24 12:45 13:23 WBC 7.72 RBC 4.68 Hgb 11.5 L Hct 37.5 L MCV 80 MCH 24.6 L MCHC 30.7 L RDW 19.1 H Plt Count 169 MPV 9.9 Immature Gran % 0.5 Neutrophils % 83.9 Lymphocytes % 6.9 Monocytes % 5.1 Eosinophils % 3.2 Basophils % 0.4 Nucleated RBC % 0.0 Absolute Neutrophils 6.48 Absolute Lymphocytes 0.53 L Absolute Monocytes 0.39 Absolute Eosinophils 0.25 Absolute Basophils 0.03 ESR 46 H PT 11.7 H INR 1.2 H APTT 34.9 H Sodium 140 Potassium 5.1 Chloride 105 Carbon Dioxide 25.3 Anion Gap 9.7 BUN 42 H Creatinine 1.4 H Est GFR (CKD-EPI 2020) 50.49 Glucose 100 Calcium 9.2 Magnesium 1.8 Total Bilirubin 0.4 AST 510 H ALT 163 H Alkaline Phosphatase 106 Creatine Kinase 8123 H C-Reactive Protein 4.92 H Total Protein 7.2 Albumin 2.9 L Procalcitonin < 0.1 Last Vital Signs Pulse 77 02/17/24 14:55 Resp 16 02/17/24 14:55 BP 175/74 H 02/17/24 14:55 Pulse Ox 96 02/17/24 14:55 Time Spent Time spent with Patient: 40-54 minutes Time was spent: preparing to see the patient(eg.review tests), obtaining and/or reviewing separately otained hiistory, ordering medications,tests, procedures, indepentently interpreting results, counseling the patient and care coordination
[2024-02-17 15:45] VITALS: BP 175/74; PULSE 77; RESP 16; O2SAT 96
[2024-02-17 16:00] VITALS: BP 163/80; PULSE 76; RESP 20; TEMP 36.7; O2SAT 94
[2024-02-17 16:17] VITALS: BP 175/74; PULSE 77; RESP 16; TEMP 36.6; O2SAT 94; O2SAT 96
[2024-02-17] MEDS: rOPINIRole 1 MG TAB PO (18:12)
--- NOTE | 2024-02-17 19:44 | RESPIRATORY ---
RT seen patient for QUETA diagnosis. Pt. has brought HU, it is in good condition but missing important part of it; a mask. Pt. refused to use use the hospital's CPAP machne or mask, states he will be okay without it. Pt. has HU called [facility], has Auto CPAP 13-15 cm H2O without supplement of O2. Pt. also advised RT that if he is going to stay more night here then his gong to bring it by tomorrow.
[2024-02-17] MEDS: rOPINIRole 1 MG TAB 2 MG PO (19:59)
[2024-02-17] MEDS: Enoxaparin 40 MG/0.4 ML SYR SC (19:59)
[2024-02-17] MEDS: Carvedilol 25 MG TAB PO (20:00)
[2024-02-17] MEDS: Magnesium Oxide 400 MG TAB PO (21:10)
[2024-02-17] MEDS: Pregabalin 100 MG CAP 200 MG PO (21:10)
[2024-02-17] MEDS: Doxazosin 2 MG TAB 4 MG PO (21:10)
[2024-02-17] MEDS: Insulin Glargine 300 UNITS/3 ML PEN 25 UNITS SC (21:11)
[2024-02-17] MEDS: Baclofen 10 MG TAB 5 MG PO (21:11)
[2024-02-17 22:39] VITALS: BP 122/63; PULSE 77; RESP 18; TEMP 36.4; O2SAT 97
[2024-02-17] MEDS: Normal Saline 1,000 ML 125 ML IV (22:51)
[2024-02-18] MEDS: VANCOMYCIN/WATER (PEG) 1.25 GM/250 ML BAG IVPB (01:23)
[2024-02-18 06:29] LABS: Abs Immature Grans 0.04 10^3/uL (0.0-0.06); Absolute Basophil Count 0.03 10^3/uL (0.0-0.2); Absolute Eosinophil Count 0.25 10^3/uL (0.0-0.7); Absolute Monocyte Count 0.41 10^3/uL (0.1-0.8); Absolute Neutrophil Count 5.67 10^3/uL (1.2-6.7); Basophils % 0.4; Eosinophils % 3.6; HGB 11.3 g/dL (13.5-17.5); Immature Grans % 0.6; Lymphocytes % 7.2; MCH 24.8 pg (27.0-33.0); MCHC 31.4 % (32.0-36.0); MCV 79 fL (80-95); MPV 9.6 fL (8.0-11.0); Monocytes % 5.9; Neutrophils % 82.3; Platelet Count 159 10^3/uL (130-400); RBC 4.55 10^6/uL (4.36-5.78); RDW 19.3 % (11.8-14.1); RDW-SD 54.3 fL
[2024-02-18] MEDS: Pantoprazole 40 MG TABCR PO (06:33)
[2024-02-18 06:55] LABS: ALT 155 U/L (16-63); AST 442 U/L (15-37); Albumin 2.7 g/dL (3.4-5.0); Alkaline Phosphatase 102 U/L (46-116); Anion Gap 9.9 mmol/L (3-11); BUN 31 mg/dL (7-18); Bilirubin, Total 0.4 mg/dL (0.2-1.0); CO2 23.1 mmol/L (21.0-32.0); CREATININE 1.3 mg/dL (0.70-1.30); Calcium 8.6 mg/dL (8.5-10.1); Chloride 106 mmol/L (98-107); Estimated GFR 55.19 (mL/min/1.73m2); Glucose 89 mg/dL (74-106); Potassium 4.7 mmol/L (3.5-5.1); Sodium 139 mmol/L (136-145); Total Protein 6.7 g/dL (6.4-8.2)
[2024-02-18 07:02] LABS: Creatine Kinase 5594 U/L (39-308)
[2024-02-18 07:38] VITALS: BP 145/68; PULSE 80; RESP 18; TEMP 36.2; O2SAT 94
[2024-02-18] MEDS: Enoxaparin 40 MG/0.4 ML SYR SC ×2 (07:50→19:27)
[2024-02-18] MEDS: Carvedilol 25 MG TAB PO ×2 (07:51→19:28)
[2024-02-18] MEDS: Magnesium Oxide 400 MG TAB 800 MG PO (07:51)
[2024-02-18] MEDS: Aspirin E.C. 81 MG TABEC PO (07:51)
[2024-02-18] MEDS: Pregabalin 100 MG CAP PO (07:51)
[2024-02-18] MEDS: levoFLOXacin 500 MG, levoFLOXacin 250 MG 750 MG PO (07:52)
[2024-02-18] MEDS: Empaglifozin 25 MG TAB PO (07:53)
[2024-02-18] MEDS: Vitamins B Comp w/C TAB 1 TAB PO (07:53)
[2024-02-18] MEDS: Ferrous Sulfate 325 MG TAB PO (07:53)
[2024-02-18] MEDS: Normal Saline Flush 10 ML SYR IVP ×2 (07:54→17:25)
--- NOTE | 2024-02-18 09:15 | PDOC.CMIN ---
Date of service: 02/18/24 Care Management Initial Assmt Initial Assessment REASON FOR HOSPITALIZATION:: Rhabdomyolysis, transamititis, cellulitis. PREVIOUS FUNCTIONAL STATUS/SOCIAL/FAMILY SUPPORTS:: Kurtis lives in [place] with of 55 years, Jessica. Daughter Amrita and JESSICA Best are supports and live in the same town. Khanh daughter is also a support and helped with transportation when Kurtis needed infusions at [facility]. CURRENT FUNCTIONAL STATUS:: Kurtis was sitting up in a chair when talking with CM. Kurtis said doing home infusions was going ok. Unfortunately he had a reaction so his treatment course needs to be adjusted. CM working with POLICY OFFICER to update infusion course through [facility] to exclude daptomycin. CM following. ADVANCE DIRECTIVES:: One file- Jessica Alanis [facility] Amrita Silverio alternate. Did the patient sign up for the portal?: Yes CODE STATUS:: Full Code INSURANCE COVERAGE / FINANCIAL ISSUES:: BC/BS [facility] Advantage PRIMARY CARE PHYSICIAN:: Cameron Mcarthur M.D PATIENT/FAMILY EDUCATION NEEDS:: Review discharge instructions and limitations, discussion of self care needs including Ask Me Three TRANSPORTATION:: Via private vehicle by family PLAN:: Kurtis will transport home once medically cleared via private vehicle. He will follow up with his PCP and discharge plan of care. He will resume HH RN and PT. CM will continue to follow [facility] All Active Problems (Updated 02/18/24 @ 09:54 by Parvin Li DPM) Ulcer of left foot with necrosis of bone (Acute) CKD (chronic kidney disease), stage III (Acute) Transaminitis (Acute) Rhabdomyolysis (Acute) Elevated CPK (Acute) Atherosclerosis of left lower extremity with ulceration (Acute) Diabetic foot infection (Acute) Atherosclerosis of artery of both lower extremities (Acute) Ulcer of left foot with fat layer exposed (Acute) Osteomyelitis of left foot (Acute) Restless leg syndrome (Acute) DVT (deep venous thrombosis) (Chronic) Venous ulcer-leg syndrome, bilateral (Acute) Onychogryphosis (Acute) Venous insufficiency of both lower extremities (Acute) Ulcer of right foot with fat layer exposed (Acute) Controlled type 2 diabetes mellitus with ulcer of toe (Acute) Atherosclerosis of [place] arteries of right leg with ulceration of ankle (Acute) Impacted cerumen, bilateral (Acute) Ulcer of extremity due to chronic venous insufficiency (Acute) Pneumonia (Acute) Nail dystrophy (Acute) Lumbar stenosis (Acute) Carpal tunnel syndrome of left wrist (Acute) Bilateral hand numbness (Acute) Foot drop, bilateral (Acute) Left sided sciatica (Acute) Impairment of speech discrimination (Acute) Asymmetrical sensorineural hearing loss (Acute) Onychomycosis (Acute) DVT prophylaxis (Acute) Sepsis (Acute) Infection of total right knee replacement (Acute) S/p irrigation and debridement; poly exchange; arthrotomy repair DOS: 10/04/2021 Advance care planning (Acute) Bacteremia (Acute) Asymmetrical sensorineural hearing loss (Acute) History of total right knee replacement (Acute 01/16/21) First degree heart block (Acute) DVT prophylaxis (Acute) Cellulitis (Acute) History of total left knee replacement (TKR) (Acute 12/14/19) Dr. Wilson s/p debridement and poly exchange 02/10/20 Hypertension (Chronic) Tubular adenoma of colon (Acute 09/02/16) Tubulovillous adenoma polyp of colon (Chronic) Noted by colonoscopy. Chest pain, rule out acute myocardial infarction (Acute 11/01/13) Abnormal LFTs (Chronic) Secondary to fartty infiltrate of the liver. Diabetic renal disease (Chronic) Benign hypertension (Chronic) Obesity (Chronic) Benign prostatic hyperplasia (Chronic) Obstructive sleep apnea syndrome (Chronic) Nocturnal CPAP Hyperlipidemia (Chronic) Diabetes mellitus type 2 (Chronic) Since approximately 1997. On insulin thereapy. Last hemoglobin A1c 6.5% March 2013. 11-01-2013: Most recent hemoglobin A1c was 6.6 ? date. Medical History Constipation Diabetic neuropathy Renal insufficiency Low blood magnesium (11/01/13) Paresthesias Fatty infiltration of liver Erectile dysfunction Foot drop Unsteady gait History of removal of joint prosthesis of right knee due to infection Microalbuminuria Diabetic polyneuropathy Morbid obesity Sleep apnea BPH (benign prostatic hyperplasia) Myalgia Perennial allergic rhinitis Vertigo Palliative care patient Hearing loss Chronic lower back pain Osteoarthritis Venous insufficiency Sleep apnea with use of continuous positive airway pressure (CPAP) History of seizures as a child Hx of myocardial infarction 10/2011 STRESS TEST COMPLETED 11/29/2019 Hyperlipidemia CAD (coronary artery disease) Cellulitis RIGHT LOWER LEG Diabetes Arthritis Surgical History History of total left hip arthroplasty (07/29/23) Carpal tunnel syndrome of right wrist S/P ECTR: 10/28/2022 H/O total knee replacement left knee 12/14/2019, right knee 01/16/2021 History of tonsillectomy and adenoidectomy H/O heart artery stent X2 2014 colonoscopy (09/02/16) Family History Maternal Aunt Colon cancer Maternal Aunt Colon cancer Father , 70s Heart disease Mother Lung cancer Brother Liver failure Son , tractor accident Accident caused by farm tractor Social History Smoking/Tobacco Use Status: Never Smoking risk assessment performed?: Yes Alcohol Intake: never Drug use: Never Substance use type: does not use Housing: house Do you feel safe at home: Yes Do you feel safe in your relationship?: Yes Additional Social history: unable to assess to privately SDOH(Care Management) Screening Will the Patient Participate in the Screening?: Declined to provide Do you worry about having a steady place to live?: choose not to answer In the past 12 months, have you had to go without electric, gas, oil or water in your home?: choose not to answer Have you or anyone in your house had to go without enough food to eat?: choose not to answer Has lack of transportation kept you from medical appointments or from doing things needed for daily living?: choose not to answer Has anyone in your support network made you feel unsafe for any reason?: choose not to answer
[2024-02-18] MEDS: Normal Saline 1,000 ML 125 ML IV ×3 (09:21→21:54)
--- NOTE | 2024-02-18 09:51 | W.PODCONSULT ---
Date of service: 02/18/24 Time of Service: 07:50 Assessment and Plan Assessment and plan (1) Diabetic foot infection: Status: Acute (2) Atherosclerosis of left lower extremity with ulceration: Status: Acute (3) Ulcer of left foot with fat layer exposed: Status: Acute (4) Osteomyelitis of left foot: Status: Acute (5) Atherosclerosis of artery of both lower extremities: Status: Acute (6) Ulcer of left foot with necrosis of bone: Status: Acute (7) CKD (chronic kidney disease), stage III: Status: Acute Assessment and plan: Patient is seen and evaluated bedside today. Resting conservatively. Chart reviewed. Please continue IV antibiotics as per ID. There is osteomyelitis to the left foot. Patient understands we are trialing abx to see if that helps. He understands there is risk for amputation with osteomyelitis, particularly due to the challenging location with OM to 4th and 5th met bases. Nursing to do daily dressing changes with: FLush with sterile saline, pack with quarter inch iodoform gauze, 4 x 4, Kerlix, Eduin wrap. Patient is to keep his left lower extremity elevated at all times. He is to remain nonweightbearing to the left foot and may use the heel for transfers. No surgical intervention is planned at this time. History of Present Illness Narrative: Patient is seen bedside today resting comfortably. He states he presented to the hospital due to allergy to daptomycin. He states he has been having dressings changed to the left lower extremity. He has been on antibiotics. He states he was seen by vascular recently no intervention was deemed necessary. [facility] All Active Problems (Updated 02/18/24 @ 09:54 by aPrvin Li DPM) Ulcer of left foot with necrosis of bone (Acute) Transaminitis (Acute) Rhabdomyolysis (Acute) Elevated CPK (Acute) CKD (chronic kidney disease), stage III (Acute) Atherosclerosis of left lower extremity with ulceration (Acute) Diabetic foot infection (Acute) Atherosclerosis of artery of both lower extremities (Acute) Ulcer of left foot with fat layer exposed (Acute) Osteomyelitis of left foot (Acute) Restless leg syndrome (Acute) DVT (deep venous thrombosis) (Chronic) Venous ulcer-leg syndrome, bilateral (Acute) Diabetes mellitus type 2 (Chronic) Since approximately 1997. On insulin thereapy. Last hemoglobin A1c 6.5% March 2013. 11-01-2013: Most recent hemoglobin A1c was 6.6 ? date. Hyperlipidemia (Chronic) Obstructive sleep apnea syndrome (Chronic) Nocturnal CPAP Benign prostatic hyperplasia (Chronic) Obesity (Chronic) Benign hypertension (Chronic) Diabetic renal disease (Chronic) Abnormal LFTs (Chronic) Secondary to fartty infiltrate of the liver. Chest pain, rule out acute myocardial infarction (Acute 11/01/13) Tubulovillous adenoma polyp of colon (Chronic) Noted by colonoscopy. Tubular adenoma of colon (Acute 09/02/16) Hypertension (Chronic) History of total left knee replacement (TKR) (Acute 12/14/19) Dr. Wilson s/p debridement and poly exchange 02/10/20 Cellulitis (Acute) DVT prophylaxis (Acute) First degree heart block (Acute) History of total right knee replacement (Acute 01/16/21) Asymmetrical sensorineural hearing loss (Acute) Bacteremia (Acute) Advance care planning (Acute) Infection of total right knee replacement (Acute) S/p irrigation and debridement; poly exchange; arthrotomy repair DOS: 10/04/2021 Sepsis (Acute) DVT prophylaxis (Acute) Onychomycosis (Acute) Asymmetrical sensorineural hearing loss (Acute) Impairment of speech discrimination (Acute) Left sided sciatica (Acute) Foot drop, bilateral (Acute) Bilateral hand numbness (Acute) Carpal tunnel syndrome of left wrist (Acute) Lumbar stenosis (Acute) Nail dystrophy (Acute) Pneumonia (Acute) Ulcer of extremity due to chronic venous insufficiency (Acute) Impacted cerumen, bilateral (Acute) Atherosclerosis of [place] arteries of right leg with ulceration of ankle (Acute) Controlled type 2 diabetes mellitus with ulcer of toe (Acute) Ulcer of right foot with fat layer exposed (Acute) Venous insufficiency of both lower extremities (Acute) Onychogryphosis (Acute) Medical History Constipation Diabetic neuropathy Renal insufficiency Low blood magnesium (11/01/13) Paresthesias Fatty infiltration of liver Erectile dysfunction Foot drop Unsteady gait History of removal of joint prosthesis of right knee due to infection Microalbuminuria Diabetic polyneuropathy Morbid obesity Sleep apnea BPH (benign prostatic hyperplasia) Myalgia Perennial allergic rhinitis Vertigo Palliative care patient Hearing loss Chronic lower back pain Osteoarthritis Venous insufficiency Sleep apnea with use of continuous positive airway pressure (CPAP) History of seizures as a child Hx of myocardial infarction 10/2011 STRESS TEST COMPLETED 11/29/2019 Hyperlipidemia CAD (coronary artery disease) Cellulitis RIGHT LOWER LEG Diabetes Arthritis Surgical History History of total left hip arthroplasty (07/29/23) Carpal tunnel syndrome of right wrist S/P ECTR: 10/28/2022 H/O total knee replacement left knee 12/14/2019, right knee 01/16/2021 History of tonsillectomy and adenoidectomy H/O heart artery stent X2 2014 colonoscopy (09/02/16) Family History Maternal Aunt Colon cancer Maternal Aunt Colon cancer Father , 70s Heart disease Mother Lung cancer Brother Liver failure Son , tractor accident Accident caused by farm tractor Social History Smoking/Tobacco Use Status: Never Smoking risk assessment performed?: Yes Alcohol Intake: never Drug use: Never Substance use type: does not use Housing: house Do you feel safe at home: Yes Do you feel safe in your relationship?: Yes Additional Social history: unable to assess to privately Exam Extrem Other: Cardio Other: Bilateral dorsalis pedis and posterior tibial arteries noted without pulse, thin and rubor appearance of feet with hemosiderin discoloration on legs, cool temperature noted to bilateral feet, with severe to moderate edema bilaterally Musc Other: Passive range of motion noted to pedal and ankle joints bilaterally, active range of motion noted to be limited to pedal and ankle joints bilaterally, motor strength is intact bilaterally Skin Other: Full-thickness ulceration with exposed bone noted to the plantar lateral aspect of the left foot subfifth metatarsal base measuring 3.0 x 2.7 cm, with about 1 cm in diameter bone exposed along the wound with the wound does tunnel deeper, the base of the wound is 50% necrotic 50% granular, the borders are hyperkeratotic. At the dorsal lateral aspect of the left foot there is an incisional full-thickness wound measuring approximately 2 cm in length which does tunnel under deeper as well however no periwound erythema edema or malodor. Skin is otherwise dry and scaly bilaterally. Ulceration to the anterior aspect of the left leg is now healed Neuro Other: Complete loss of protective sensations to bilateral lower extremities, using walker for ambulation, admits to burning and paresthesia bilaterally Results Last Vital Signs Temp 97.2 F L 02/18/24 07:38 Pulse 80 02/18/24 07:38 Resp 18 02/18/24 07:38 BP 145/68 H 02/18/24 07:38 Pulse Ox 94 02/18/24 07:38 Labs 02/18/24 06:16 02/18/24 06:16 Labs: Laboratory Results - last 24 hr 02/17/24 02/17/24 02/18/24 12:45 13:23 06:16 WBC 7.72 6.90 RBC 4.68 4.55 Hgb 11.5 L 11.3 L Hct 37.5 L 36.0 L MCV 80 79 L MCH 24.6 L 24.8 L MCHC 30.7 L 31.4 L RDW 19.1 H 19.3 H Plt Count 169 159 MPV 9.9 9.6 Immature Gran % 0.5 0.6 Neutrophils % 83.9 82.3 Lymphocytes % 6.9 7.2 Monocytes % 5.1 5.9 Eosinophils % 3.2 3.6 Basophils % 0.4 0.4 Nucleated RBC % 0.0 0.0 Absolute Neutrophils 6.48 5.67 Absolute Lymphocytes 0.53 L 0.50 L Absolute Monocytes 0.39 0.41 Absolute Eosinophils 0.25 0.25 Absolute Basophils 0.03 0.03 ESR 46 H PT 11.7 H INR 1.2 H APTT 34.9 H Sodium 140 139 Potassium 5.1 4.7 Chloride 105 106 Carbon Dioxide 25.3 23.1 Anion Gap 9.7 9.9 BUN 42 H 31 H Creatinine 1.4 H 1.3 Est GFR (CKD-EPI 2020) 50.49 55.19 Glucose 100 89 Calcium 9.2 8.6 Magnesium 1.8 Total Bilirubin 0.4 0.4 AST 510 H 442 H ALT 163 H 155 H Alkaline Phosphatase 106 102 Creatine Kinase 8123 H 5594 H C-Reactive Protein 4.92 H Total Protein 7.2 6.7 Albumin 2.9 L 2.7 L Procalcitonin < 0.1
--- NOTE | 2024-02-18 11:45 | PGE_ITS ---
Date of Service Date of service: 02/18/24 Time of Service: 11:45 Assessment and Plan Assessment and plan (1) Rhabdomyolysis: Status: Acute Assessment and plan: CPK trending downward continue IV hydration for today (last EF 55-60% with no WMA's) avoid nephrotoxic medications thought d/t daptomycin (2) Rash: Status: Resolved Assessment and plan: less likely to be DRESS given that eosinophils are normal and the rash has resolved. dapto and ceftriaxone both stopped monitor (3) Transaminitis: Status: Acute Assessment and plan: concern is possibly for DRESS given the rash with the change in liver enzymes but less likely now with rash resolved. dapto stopped. avoid heptatoxic medications. trending downward (4) Osteomyelitis of left foot: Status: Acute Assessment and plan: [place]iatry and [place] [facility] [place] vanco and PO levaquin. podiatry consult for continuity of care, dressing recommendations (5) Restless leg syndrome: Status: Acute Assessment and plan: continue home medications (6) Diabetes mellitus type 2: Status: Chronic Assessment and plan: diabetic diet, home basal insulin, blood sugars are well controlled. may need to adjust while hospitalized. check blood sugars ac/hs and provide ss coverage. holding oral diabetic agents in setting of rhabdo and CKD monitor closely (7) Obstructive sleep apnea syndrome: Status: Chronic Assessment and plan: home cpap (8) Benign prostatic hyperplasia: Status: Chronic Assessment and plan: continue home medication and monitor for retention (9) Benign hypertension: Status: Chronic Assessment and plan: holding hctz in setting of ckd and rhabdo continue carvedilol and monitor (10) CKD (chronic kidney disease), stage III: Status: Acute Assessment and plan: creatinine below baseline continue providing IV hydration in setting of rhabdo monitor closely avoid nephrotoxic drugs (11) DVT prophylaxis: Status: Acute Assessment and plan: enoxaparin daily Subjective Subjective Patient reports: no new complaints, feels better, tolerating liquids well, tolerating a regular diet, voiding w/o difficulty and afebrile; denies shortness of breath Exam Const General: cooperative, healthy appearing and no acute distress Nutritional Appearance: obese Orientation: alert, awake and oriented x3 HENMT Head: normal to inspection, normocephalic and atraumatic Ears: external ears normal General nose exam: external nose normal Face and sinus: normal facial exam Mouth: moist mucous membranes Eyes General: appearance normal, both eyes and all related structures Neck Neck: normal visual inspection Chest Chest: normal inspection of the chest Resp Effort & Inspection: normal respiratory effort and able to speak in complete sentences Cardio Rate: regular rate GI Inspection: normal to inspection Skin Lesions: lesion noted (Dressing is clean dry and intact) Neuro General: patient alert and patient oriented x3 Psych Mental Status: mental status grossly normal Objective Last Vital Signs Temp 36.2 C L 02/18/24 07:38 Pulse 80 02/18/24 07:38 Resp 18 02/18/24 07:38 BP 145/68 H 02/18/24 07:38 Pulse Ox 94 02/18/24 07:38 Laboratory Results - last 24 hr 02/17/24 02/17/24 02/18/24 12:45 13:23 06:16 WBC 7.72 6.90 RBC 4.68 4.55 Hgb 11.5 L 11.3 L Hct 37.5 L 36.0 L MCV 80 79 L MCH 24.6 L 24.8 L MCHC 30.7 L 31.4 L RDW 19.1 H 19.3 H Plt Count 169 159 MPV 9.9 9.6 Immature Gran % 0.5 0.6 Neutrophils % 83.9 82.3 Lymphocytes % 6.9 7.2 Monocytes % 5.1 5.9 Eosinophils % 3.2 3.6 Basophils % 0.4 0.4 Nucleated RBC % 0.0 0.0 Absolute Neutrophils 6.48 5.67 Absolute Lymphocytes 0.53 L 0.50 L Absolute Monocytes 0.39 0.41 Absolute Eosinophils 0.25 0.25 Absolute Basophils 0.03 0.03 ESR 46 H PT 11.7 H INR 1.2 H APTT 34.9 H Sodium 140 139 Potassium 5.1 4.7 Chloride 105 106 Carbon Dioxide 25.3 23.1 Anion Gap 9.7 9.9 BUN 42 H 31 H Creatinine 1.4 H 1.3 Est GFR (CKD-EPI 2020) 50.49 55.19 Glucose 100 89 Calcium 9.2 8.6 Magnesium 1.8 Total Bilirubin 0.4 0.4 AST 510 H 442 H ALT 163 H 155 H Alkaline Phosphatase 106 102 Creatine Kinase 8123 H 5594 H C-Reactive Protein 4.92 H Total Protein 7.2 6.7 Albumin 2.9 L 2.7 L Procalcitonin < 0.1 Time Spent with Patient Time Spent with Patient: 25-34 minutes Time was spent: preparing to see the patient(eg.review tests), obtaining and/or reviewing separately otained hiistory, ordering medications,tests, procedures, indepentently interpreting results, counseling the patient and care coordination
--- NOTE | 2024-02-18 12:54 | PHA.REVIEW2 ---
Pharmacy Admission Review Admission Clinical Review Admission Pharmacy Review: Ulcer of left foot with necrosis of bone (Acute) CKD (chronic kidney disease), stage III (Acute) Transaminitis (Acute) Rhabdomyolysis (Acute) Elevated CPK (Acute) Atherosclerosis of left lower extremity with ulceration (Acute) Diabetic foot infection (Acute) Atherosclerosis of artery of both lower extremities (Acute) Ulcer of left foot with fat layer exposed (Acute) Osteomyelitis of left foot (Acute) Restless leg syndrome (Acute) DVT prophylaxis (Acute) amlodipine besylate [From Norvasc] Adverse Reaction (Mild, Verified 02/17/24 12:34) edema enalapril maleate [From Vasotec] Adverse Reaction (Mild, Verified 02/17/24 12:34) cough enalaprilat dihydrate [From Vasotec] Adverse Reaction (Mild, Verified 02/17/24 12:34) cough pravastatin sodium [From Pravachol] Adverse Reaction (Mild, Verified 02/17/24 12:34) myalgia from Lipitor rosuvastatin [From Crestor] Adverse Reaction (Mild, Verified 02/17/24 12:34) Myalgia Resuscitation Status Full Code Height 5 ft 8 in Weight 122.924 kg Comments Comments/Follow Ups: Follow up with vancomycin dose pending trough level Pharmacy Admission Review Renal Dosing Renal Dosing: BUN 31 mg/dL (7-18) H 02/18/24 06:16 Creatinine 1.3 mg/dL (0.70-1.30) 02/18/24 06:16 Medications needing adjustments: Reviewed (CrCl 56.86 mL/min) Anticoagulation Anticoagulation: Hgb 11.3 g/dL (13.5-17.5) L 02/18/24 06:16 Hct 36.0 % (40.0-50.0) L 02/18/24 06:16 Plt Count 159 10^3/uL (130-400) 02/18/24 06:16 INR 1.2 (0.9-1.1) H 02/17/24 13:23 Creatinine 1.3 mg/dL (0.70-1.30) 02/18/24 06:16 DVT Prophylaxis: Reviewed Medications: Enoxaparin (40mg q24h) Relevant Labs Relevant Labs: ESR 46 mm/hr (0-20) H 02/17/24 12:45 Sodium 139 mmol/L (136-145) 02/18/24 06:16 Potassium 4.7 mmol/L (3.5-5.1) 02/18/24 06:16 Chloride 106 mmol/L (98-107) 02/18/24 06:16 Magnesium 1.8 mg/dL (1.8-2.4) 02/17/24 12:45 C-Reactive Protein 4.92 mg/dL (<or=0.5) H 02/17/24 12:45 Electrolytes, C-Reactive P, ESR: Reviewed (BUN decreased from 42 to 31 and SCr decreased from 1.4 to 1.3, Hgb 11.3, AST/ALT decreased from 510/163 to 442/155) DM Control DM Control: Glucose 89 mg/dL (74-106) 02/18/24 06:16 Finger Stick Blood Glucose 92 1140 Finger Stick Blood Glucose 92 1140 Finger Stick Blood Glucose 91 0735 Finger Stick Blood Glucose 91 0732 Finger Stick Blood Glucose 91 0732 DM Control: Reviewed Insulin Dosing, Diabetic Medication: Has order for SS insulin, glargine 25 units HS and Jardiance 10mg daily Cardiac Review BP, HR, EF%: Reviewed (HR WNL, BP 145/68) QTc Review QTc: Reviewed (423 from 02/17/24) IV to PO Switch IV Medications: Reviewed (Vancomycin) Home Meds Home Med List reviewed: Reviewed Relevent Home Meds Not ordered & why?: HCTZ (on hold per H+P), losartan (on hold per H+P) and metformin (on hold per H+P) Current Meds Current Medication Order Review: Reviewed Pharmacy Antibiotic Review Relevant Labs: Relevant Labs 02/17/24 12:45 C-Reactive Protein 4.92 H Procalcitonin < 0.1 Pharmacy Antibiotic Activity: C/S review and Reviewed, no change Comments: Patient was receiving outpatient daptomycin and ceftriaxone infusions but returned to ED due to a reaction. Daptomycin and ceftriaxone were discontinued. ID consult at [facility] [place] recommended vancomycin 1250mg q12h and levofloxacin. When I put patient into [facility], the dose comes up with a predicted AUC of 840 and trough of 27. Put in order for vancomycin trough and will contact provider if this dose should be changed. Given that it was recommended by ID consult I kept it as is until the trough level comes back (scheduled for 1300 today prior to next dose). Blood cultures are pending. Comments Comments/Follow Ups: Follow up with vancomycin dose pending trough level
[2024-02-18] MEDS: rOPINIRole 1 MG TAB PO ×3 (13:04→17:24)
[2024-02-18 13:33] LABS: Vancomycin, Trough 13.5 ug/mL (10.0-20.0)
[2024-02-18 15:26] VITALS: BP 144/73; PULSE 80; RESP 20; TEMP 37; O2SAT 95
[2024-02-18] MEDS: rOPINIRole 1 MG TAB 2 MG PO (19:28)
[2024-02-18] MEDS: Pregabalin 100 MG CAP 200 MG PO (21:34)
[2024-02-18] MEDS: Doxazosin 2 MG TAB 4 MG PO (21:34)
[2024-02-18] MEDS: Insulin Glargine 300 UNITS/3 ML PEN 25 UNITS SC (21:35)
[2024-02-18] MEDS: Magnesium Oxide 400 MG TAB PO (21:35)
[2024-02-18] MEDS: Baclofen 10 MG TAB 5 MG PO (21:35)
[2024-02-18 21:47] VITALS: BP 143/67; PULSE 78; RESP 18; TEMP 37.2; O2SAT 96
[2024-02-19 00:08] VITALS: RESP 18
[2024-02-19] MEDS: Acetaminophen 500 MG TAB 1000 MG PO (04:12)
[2024-02-19] MEDS: Pantoprazole 40 MG TABCR PO (06:22)
[2024-02-19 07:05] VITALS: BP 135/78; PULSE 77; RESP 18; TEMP 36.5; O2SAT 96
[2024-02-19] MEDS: Enoxaparin 40 MG/0.4 ML SYR SC ×2 (07:54→19:12)
[2024-02-19] MEDS: Normal Saline Flush 10 ML SYR IVP (07:54)
[2024-02-19] MEDS: Pregabalin 100 MG CAP PO ×2 (07:55→17:37)
[2024-02-19] MEDS: levoFLOXacin 500 MG, levoFLOXacin 250 MG 750 MG PO (07:55)
[2024-02-19] MEDS: Carvedilol 25 MG TAB PO ×2 (07:55→19:13)
[2024-02-19] MEDS: Vitamins B Comp w/C TAB 1 TAB PO (07:55)
[2024-02-19] MEDS: Ferrous Sulfate 325 MG TAB PO (07:55)
[2024-02-19] MEDS: Magnesium Oxide 400 MG TAB 800 MG PO (07:55)
[2024-02-19] MEDS: Empaglifozin 25 MG TAB PO (07:56)
[2024-02-19] MEDS: Aspirin E.C. 81 MG TABEC PO (07:56)
[2024-02-19 08:12] LABS: Abs Immature Grans 0.03 10^3/uL (0.0-0.06); Absolute Basophil Count 0.03 10^3/uL (0.0-0.2); Absolute Eosinophil Count 0.17 10^3/uL (0.0-0.7); Absolute Lymphocyte Count 0.46 10^3/uL (1.2-3.4); Absolute Monocyte Count 0.68 10^3/uL (0.1-0.8); Absolute Neutrophil Count 6.99 10^3/uL (1.2-6.7); Basophils % 0.4; HCT 36.5 % (40.0-50.0); HGB 11.3 g/dL (13.5-17.5); Immature Grans % 0.4; Lymphocytes % 5.5; MCH 24.6 pg (27.0-33.0); MCV 79 fL (80-95); MPV 9.1 fL (8.0-11.0); Monocytes % 8.1; Neutrophils % 83.6; Platelet Count 146 10^3/uL (130-400); RDW 18.8 % (11.8-14.1); RDW-SD 54.4 fL; WBC 8.36 10^3/uL (4.4-10.8)
[2024-02-19 08:28] LABS: ALT 156 U/L (16-63); AST 349 U/L (15-37); Albumin 2.9 g/dL (3.4-5.0); Alkaline Phosphatase 106 U/L (46-116); Anion Gap 9.3 mmol/L (3-11); BUN 27 mg/dL (7-18); Bilirubin, Total 0.5 mg/dL (0.2-1.0); CO2 24.7 mmol/L (21.0-32.0); CREATININE 1.3 mg/dL (0.70-1.30); Calcium 8.9 mg/dL (8.5-10.1); Chloride 105 mmol/L (98-107); Estimated GFR 55.19 (mL/min/1.73m2); Glucose 100 mg/dL (74-106); Potassium 4.5 mmol/L (3.5-5.1); Sodium 139 mmol/L (136-145); Total Protein 7.1 g/dL (6.4-8.2); Vancomycin, Trough 6.7 ug/mL (10.0-20.0)
[2024-02-19 08:51] LABS: Creatine Kinase 3509 U/L (39-308)
[2024-02-19] MEDS: Normal Saline 1,000 ML 125 ML IV ×2 (08:53→21:36)
[2024-02-19] MEDS: VANCOMYCIN/WATER (PEG) 1.5 GM/300 ML BAG IV (08:59)
--- NOTE | 2024-02-19 10:23 | PGE_ITS ---
Date of Service Date of service: 02/19/24 Time of Service: 10:23 Assessment and Plan Assessment and plan (1) Rhabdomyolysis: Status: Acute Assessment and plan: CPK continues trending downward continue IV hydration with reduced rate (last EF 55-60% with no WMA's) avoid nephrotoxic medications thought d/t daptomycin (2) Rash: Status: Resolved Assessment and plan: less likely to be DRESS given that eosinophils are normal and the rash has resolved. dapto and ceftriaxone both stopped monitor (3) Transaminitis: Status: Acute Assessment and plan: trending downward avoid heptatoxic medications. Acetaminophen level checked and less than 2 concern is possibly for DRESS given the rash with the change in liver enzymes but less likely now with rash resolved. dapto stopped. (4) Osteomyelitis of left foot: Status: Acute Assessment and plan: followed by podiatry and [place] [facility] [place] continue IV vanco with pharmacy dosing and PO levaquin. podiatry consult for continuity of care, dressing recommendations (5) Restless leg syndrome: Status: Acute Assessment and plan: continue home medications (6) Diabetes mellitus type 2: Status: Chronic Assessment and plan: diabetic diet, home basal insulin, blood sugars are well controlled. may need to adjust while hospitalized. check blood sugars ac/hs and provide ss coverage. holding oral diabetic agents in setting of rhabdo and CKD monitor closely (7) Obstructive sleep apnea syndrome: Status: Chronic Assessment and plan: home cpap (8) Benign prostatic hyperplasia: Status: Chronic Assessment and plan: continue home medication and monitor for retention (9) Benign hypertension: Status: Chronic Assessment and plan: holding hctz in setting of ckd and rhabdo continue carvedilol and monitor (10) CKD (chronic kidney disease), stage III: Status: Acute Assessment and plan: creatinine below baseline continue providing IV hydration in setting of rhabdo monitor closely avoid nephrotoxic drugs (11) DVT prophylaxis: Status: Acute Assessment and plan: enoxaparin daily Objective Last Vital Signs Temp 36.5 C 02/19/24 07:05 Pulse 77 02/19/24 07:05 Resp 18 02/19/24 07:05 BP 135/78 02/19/24 07:05 Pulse Ox 96 02/19/24 07:05 Laboratory Results - last 24 hr 02/18/24 02/19/24 13:10 08:05 WBC 8.36 RBC 4.60 Hgb 11.3 L Hct 36.5 L MCV 79 L MCH 24.6 L MCHC 31.0 L RDW 18.8 H Plt Count 146 MPV 9.1 Immature Gran % 0.4 Neutrophils % 83.6 Lymphocytes % 5.5 Monocytes % 8.1 Eosinophils % 2.0 Basophils % 0.4 Nucleated RBC % 0.0 Absolute Neutrophils 6.99 H Absolute Lymphocytes 0.46 L Absolute Monocytes 0.68 Absolute Eosinophils 0.17 Absolute Basophils 0.03 Sodium 139 Potassium 4.5 Chloride 105 Carbon Dioxide 24.7 Anion Gap 9.3 BUN 27 H Creatinine 1.3 Est GFR (CKD-EPI 2020) 55.19 Glucose 100 Calcium 8.9 Total Bilirubin 0.5 AST 349 H ALT 156 H Alkaline Phosphatase 106 Creatine Kinase 3509 H Total Protein 7.1 Albumin 2.9 L Vancomycin Trough 13.5 6.7 L Time Spent with Patient Time Spent with Patient: 25-34 minutes Time was spent: preparing to see the patient(eg.review tests), obtaining and[facility]or [facility], ordering medications,tests, procedures, indepentently interpreting results and counseling the patient
[2024-02-19 11:19] LABS: Lab Add On Test DONE
[2024-02-19 11:37] LABS: Acetaminophen < 2 ug/mL (10-30)
--- NOTE | 2024-02-19 12:02 | W.INDIABCONS ---
Date of service: 02/19/24 Time of Service: 12:02 Diabetes Inpatient Consult Reason for Visit: diabetes education consult DESCRIPTION/ASSESSMENT: PT is 79yo male with history of insulin dependant DMII, CKD III with current foot infection of left side. Pt with recent A1c of 5.9 Takes glargine 25 units HS and sliding scale insulin Lispro at 2 meals per day - usually 15 units at lunch and supper. Also take empagliflozin. Offered pt educaiton and menu planning assistance via outpatient services - politely declined at this time. Pt with good po intake during admission on CHO consistent diet INTERVENTION: no nutrition intervention planned at this time q PLAN: will remain available for education needs Time Spent in Nutritional Counseling and Treatment: 10 minutes
--- NOTE | 2024-02-19 12:04 | CMPROGNOTE_ITS ---
Date of service: 02/19/24 Time of Service: 12:04 Care Management Progress Note Progress Note Text Progress Note Text: S/O: Kurtis was sitting up in his chair when CM met with him. He stated that he is doing ok today, although he has a bad cough; he had difficulty finishing a sentence due to coughing throughout the conversation. CM notified his nurse of his cough; she stated that she would attend to this. Per report, Kurtis's antibiotic course will be altered, as he is not able to continue what he was taking at home due to a reaction. Per ACCOUNTS RECEIVABLE ASSISTANT, he will likely be changed to vancomycin daily, but the dose is currently unclear. He will likely remain at [facility] for at least 48H to determine the appropriate course. CM notified [facility] (phone #[phone]), who requested that the new order be faxed (fax #[phone]) as soon as it is updated, although it will not likely be processed over the weekend. Kurtis stated that he is agreeable to going into the infusion room for a couple of days while the order is processed, if necessary. CM will continue to follow. A: Kurtis is an 79 year old male admitted to [facility] on 02/17/24 for rhabdomyolysis, transamitis, cellulitis. P: Kurtis will transport home once medically cleared via private vehicle. He will resume his home IV infusion through [facility] once his new IV antibiotic course is identified. He will follow up with his PCP and discharge plan of care. He will resume HH RN and PT. CM will continue to follow. SDOH(Care Management) Screening Will the Patient Participate in the Screening?: Declined to provide Do you worry about having a steady place to live?: choose not to answer In the past 12 months, have you had to go without electric, gas, oil or water in your home?: choose not to answer Have you or anyone in your house had to go without enough food to eat?: choose not to answer Has lack of transportation kept you from medical appointments or from doing things needed for daily living?: choose not to answer Has anyone in your support network made you feel unsafe for any reason?: choose not to answer
[2024-02-19] MEDS: rOPINIRole 1 MG TAB PO ×3 (12:19→17:36)
[2024-02-19] MEDS: guaiFENesin 600 MG TABCR PO ×2 (14:27→19:14)
--- NOTE | 2024-02-19 14:58 | PT.INIE ---
PT Notes Visit Reasons: rhabdomyolysis, transamititis, cellulititis Physical Therapy Inpatient Initial Evaluation Date: 02/19/2024 Referring Doctor: Denise Mathur NP PT Orders: PT CONSULT: Eval/Treat Precautions: Fall. Standard precautions in place. Per Dr. Li as of 02/18/2024: Non-weight bearing on the L LE with AD, may WB on L heel for transfers only. Patient Profile/Admitting Diagnosis: Kurtis is an 79-year-old male admitted to the ED on 02/17/2024 for management of rhabdomyolysis, body rash, transaminitis, osteomyelitis of left foot, restless leg syndrome, diabetes mellitus type 2, QUETA, benign prostatic hyperplasia, benign hypertension, and CKD. PMHX: All Active Problems Diabetic foot infection (Acute) Atherosclerosis of lower extremity with ulceration (Acute) Atherosclerosis of artery of both lower extremities (Acute) Ulcer of left foot with fat layer exposed (Acute) Osteomyelitis of left foot (Acute) Restless leg syndrome (Acute) DVT (deep venous thrombosis) (Chronic) Venous ulcer-leg syndrome, bilateral (Acute) Onychogryphosis (Acute) Venous insufficiency of both lower extremities (Acute) Ulcer of right foot with fat layer exposed (Acute) Controlled type 2 diabetes mellitus with ulcer of toe (Acute) Atherosclerosis of [place] arteries of right leg with ulceration of ankle (Acute) Impacted cerumen, bilateral (Acute) Ulcer of extremity due to chronic venous insufficiency (Acute) Pneumonia (Acute) Nail dystrophy (Acute) Lumbar stenosis (Acute) Carpal tunnel syndrome of left wrist (Acute) Bilateral hand numbness (Acute) Foot drop, bilateral (Acute) Diabetic neuropathy (Acute) Left sided sciatica (Acute) Impairment of speech discrimination (Acute) Asymmetrical sensorineural hearing loss (Acute) Onychomycosis (Acute) DVT prophylaxis (Acute) Sepsis (Acute) Infection of total right knee replacement (Acute) S/p irrigation and debridement; poly exchange; arthrotomy repair DOS: 10/04/2021 Advance care planning (Acute) Bacteremia (Acute) Asymmetrical sensorineural hearing loss (Acute) History of total right knee replacement (Acute 01/16/21) First degree heart block (Acute) Discharge planning issues (Acute) DVT prophylaxis (Acute) Cellulitis (Acute) History of total left knee replacement (TKR) (Acute 12/14/19) Dr. Wilson s/p debridement and poly exchange 02/10/20 Renal insufficiency (Chronic) Hypertension (Chronic) Tubular adenoma of colon (Acute 09/02/16) Low blood magnesium (Acute 11/01/13) Tubulovillous adenoma polyp of colon (Chronic) Noted by colonoscopy.Chest pain, rule out acute myocardial infarction (Acute 11/01/13) Abnormal LFTs (Chronic) Secondary to fartty infiltrate of the liver. Diabetic renal disease (Chronic) Benign hypertension (Chronic) Obesity (Chronic) Benign prostatic hyperplasia (Chronic) Obstructive sleep apnea syndrome (Chronic) Nocturnal CPAPHyperlipidemia (Chronic) Diabetes mellitus type 2 (Chronic) Since approximately 1997. On insulin thereapy. Last hemoglobin A1c 6.5% March 2013. 11-01-2013: Most recent hemoglobin A1c was 6.6 ? date. Medical History Paresthesias Fatty infiltration of liver Erectile dysfunction Foot drop Unsteady gait History of removal of joint prosthesis of right knee due to infection CKD (chronic kidney disease), stage III Microalbuminuria Diabetic polyneuropathy Morbid obesity Sleep apnea BPH (benign prostatic hyperplasia) Myalgia Perennial allergic rhinitis Vertigo Palliative care patient Hearing loss Chronic lower back pain Osteoarthritis Venous insufficiency Sleep apnea with use of continuous positive airway pressure (CPAP) History of seizures as a child Hx of myocardial infarction 10/2011 STRESS TEST COMPLETED 11/29/2019 Hyperlipidemia CAD (coronary artery disease) Cellulitis RIGHT LOWER LEG Diabetes Arthritis Surgical History History of total left hip arthroplasty (07/29/23) Carpal tunnel syndrome of right wrist S/P ECTR: 10/28/2022 H/O total knee replacement left knee 12/14/2019, right knee 01/16/2021 History of tonsillectomy and adenoidectomy H/O heart artery stent X2 2014 colonoscopy (09/02/16) Social History/Home Situation: Lives with in a private home with a ramp to enter. does the cooking, house chores, and laundry. Children are also involved with care as needed. Equipment Owned/DME: FWW, air cast boot Subjective: Patient stated that he has had 1 fall since most recent discharge from the hospital. Remains lacking sensation in B feet. Rashes have resolved. Compains of being stiff in his joints. Objective: General Observation: Resting on bedside chair. Dressing to L foot. Brawny edema to B legs from venous insufficiency. SWelling in B legs and feet R<<L. Mental Status: Alert and oriented as to person, place, time, and purpose. Able to pay attention, focus, and respond appropriately. Pain: Denied Vital Signs: Closely monitored by nursing staff ROM: Right Lower Extremity: Hip flexion WFL. Hip abduction WFL. Knee flexion WFL. Ankle dorsiflexion to neutral only. Ankle plantarflexion WFL. Left Lower Extremity: Hip flexion WFL. Hip abduction WFL. Knee flexion WFL. Ankle dorsiflexion to neutral only . Ankle plantarflexion NT. Toe flexion less than 25%. Strength: Right Lower Extremity: Hip flexors 4/5. Hip abductors 4/5. Knee flexors 4/5. Knee extensors 4/5. Ankle dorsiflexors 3-/5. Ankle plantarflexors 4-/5. Left Lower Extremity:Hip flexors 4-/5. Hip abductors 4-/5. Knee flexors 5/5. Knee extensors 5/5. Ankle dorsiflexors3-/5. Ankle plantarflexors 4-/5. Bed Mobility/Transfers: Minimal cueing provided for use of B hands as needed for support, movement sequence, AD management, and posture to reduce fall risk and minimize pain report Rolling minimal assist Supine to sit stand by assist Sit to stand stand by assist, NWB on the L LE, needs moderate cueing to follow WB precaution Stand to sit stand by assist, NWB on the L LE, , needs moderate cueing to follow WB precaution Gait: Stand pivot transfer only due to WB precaution and body habitus. May weight bear on l heel for transfers only. Balance: Static Sitting: Normal Dynamic Sitting: Normal Static Standing: Fair Dynamic Standing: Poor Special Tests: Mobility Limitations Standardized Measure [facility] AM-PAC 6 clicks Basic Mobility Inpatient Short Form: Raw Score: 19 CMS Score: 42% deficit Informed Consent/Education: Patient was instructed in purpose of PT consult and plan of care. Agreeable to proceed with established PT POC to achieve personal goals. Assessment: Per Dr. Li as of 02/18/2024: Non-weight bearing on the L LE with AD, may WB on L heel for transfers only. Kurtis is an 79-year-old male admitted to the ED on 02/17/2024 for management of rhabdomyolysis, body rash, transaminitis, osteomyelitis of left foot, restless leg syndrome, diabetes mellitus type 2, QUETA, benign prostatic hyperplasia, benign hypertension, and CKD.Also reviewed seated exercises with patient to be done every 2-3 hours while awake. Patient presents with clinical signs and symptoms consistent with current/admitting diagnoses that have resulted to mobility limitations, gait instability, generalized weakness, and overall ADL decline as demonstrated by the following impairment level findings: 1. Decreased strength to core and B LE major muscle groups 2. Impaired sitting/standing balance 3. Impaired activity tolerance 4. Limitation of joint range of motion in L ankle joint 5. NWB on the L LE Impairments are contributing to the following functional limitations: 1. Decline in bed mobility skills 2. Decline in transfer skills 3. Difficulty with ambulation without assistive device and physical assistance 4. Increased completion time for mobility ADL performance 5. Increased risk for falls 6. Difficulty with managing steps alone safely Patient is assessed as a 65424 moderate complexity based on the following: History: 79-year-old male with past medical history as indicated above Examination: Demonstrable impairment in strength, balance, and mobility level with underlying impairments and functional limitations as exhibited above as well as deficit score of 42% utilizing the [facility] Mobility Inpatient Short Form Presentation: Evolving Decision Makin moderate complexity Goals: Goals X1 week 1. Supine-Sit independent 2. Sit-Supine independent 3. Sit-Stand independent 4. Stand-Sit independent with FWW 5. Bed-Chair independent with FWW stand pivot transfer 6. Chair-Bed independent with FWW stand pivot transfer 7. Independent gait on level surface with use of FWW for at least 15 feet without report of pain nor dyspnea Plan of Care/Treatment Plan: 1-2x/day, 7 days/week x 1 week. Plan of care has been reviewed with the COAL TRIMMER MACHINE OPERATOR providing the service under Physical Therapy direction. Initiate Physical Therapy intervention for pain management as needed, strengthening, bed mobility, transfers, gait, stairs, balance training, and use of assistive device. -Gradually train with safe ambulation uo to 15 feet using AD and NWB. DISCHARGE RECOMMENDATIONS: [] Home with no services [] [X] Home with services. Patient will benefit from home health PT services in order to progress mobility level using least restrictive assistive ambulatory device, assess home safety, identify additional equipment needs, and establish a functional maintenance program that will increase ability of patient to remain at home. [] Home with outpatient PT [] [] SNF for continued rehabilitation [] [] [facility] [] [] SNF versus LTC based on ability to participate and progress [] TREATMENT CODE/TIME: 27762 x 25 minutes for 1 unit (14:25-14:50). Thank you for the opportunity to participate in the care of this patient. Nargis Bernabe PT, DPT, CLT [facility] [place], [place]
[2024-02-19 15:31] VITALS: BP 144/57; PULSE 84; RESP 20; TEMP 36.5; O2SAT 95
[2024-02-19] MEDS: rOPINIRole 1 MG TAB 2 MG PO (19:13)
[2024-02-19] MEDS: Doxazosin 2 MG TAB 4 MG PO (21:31)
[2024-02-19] MEDS: Pregabalin 100 MG CAP 200 MG PO (21:32)
[2024-02-19] MEDS: Magnesium Oxide 400 MG TAB PO (21:33)
[2024-02-19] MEDS: Insulin Glargine 300 UNITS/3 ML PEN 25 UNITS SC (21:34)
[2024-02-19] MEDS: Baclofen 10 MG TAB 5 MG PO (21:34)
[2024-02-19 21:47] VITALS: BP 139/78; PULSE 75; RESP 20; TEMP 37.3; O2SAT 92
[2024-02-20] MEDS: VANCOMYCIN/WATER (PEG) 1.5 GM/300 ML BAG IV ×2 (01:54→19:11)
[2024-02-20 06:05] LABS: Vancomycin, Random 26.9 ug/mL
[2024-02-20] MEDS: Normal Saline Flush 10 ML SYR IVP ×2 (07:37→19:10)
[2024-02-20] MEDS: Vitamins B Comp w/C TAB 1 TAB PO (07:38)
[2024-02-20] MEDS: Ferrous Sulfate 325 MG TAB PO (07:38)
[2024-02-20] MEDS: Pregabalin 100 MG CAP PO ×2 (07:38→11:41)
[2024-02-20] MEDS: Pantoprazole 40 MG TABCR PO (07:39)
[2024-02-20] MEDS: levoFLOXacin 500 MG, levoFLOXacin 250 MG 750 MG PO (07:39)
[2024-02-20] MEDS: guaiFENesin 600 MG TABCR PO ×2 (07:39→19:11)
[2024-02-20] MEDS: Empaglifozin 25 MG TAB PO (07:39)
[2024-02-20] MEDS: Carvedilol 25 MG TAB PO ×2 (07:39→19:11)
[2024-02-20] MEDS: Aspirin E.C. 81 MG TABEC PO (07:39)
[2024-02-20] MEDS: Enoxaparin 40 MG/0.4 ML SYR SC ×2 (07:39→19:11)
[2024-02-20] MEDS: Magnesium Oxide 400 MG TAB 800 MG PO (07:39)
[2024-02-20 07:47] VITALS: BP 122/69; PULSE 65; RESP 20; TEMP 37; O2SAT 94
[2024-02-20] MEDS: traMADol 50 MG TAB PO ×2 (07:49→14:21)
[2024-02-20] MEDS: Milk of Magnesia 30 ML CUP PO (08:15)
[2024-02-20] MEDS: Polyethylene Glycol 3350 17 GM PACKET PO ×2 (08:16→19:21)
--- NOTE | 2024-02-20 09:11 | PGE_ITS ---
Date of Service Date of service: 02/20/24 Time of Service: 09:12 Assessment and Plan Assessment and plan (1) Rhabdomyolysis: Status: Acute Assessment and plan: -CPK continues trending downward -continue IV hydration with reduced rate (last EF 55-60% with no WMA's) -avoid nephrotoxic medications -thought d/t daptomycin (2) Rash: Status: Resolved Assessment and plan: -less likely to be DRESS given that eosinophils are normal and the rash has resolved. -dapto and ceftriaxone both stopped -monitor (3) Transaminitis: Status: Acute Assessment and plan: -trending downward -avoid heptatoxic medications. -Acetaminophen level checked and less than 2 (4) Osteomyelitis of left foot: Status: Acute Assessment and plan: -followed by podiatry and ID at [facility] [place] -will continue IV vanco with pharmacy dosing and PO levaquin. -podiatry consult for continuity of care, dressing recommendations (5) Restless leg syndrome: Status: Acute Assessment and plan: -continue home medications (6) Diabetes mellitus type 2: Status: Chronic Assessment and plan: -diabetic diet, home basal insulin, blood sugars are well controlled. -check blood sugars ac/hs and provide ss coverage. -holding oral diabetic agents in setting of rhabdo and CKD -monitor closely (7) Obstructive sleep apnea syndrome: Status: Chronic Assessment and plan: home cpap (8) Benign prostatic hyperplasia: Status: Chronic Assessment and plan: continue home medication and monitor for retention (9) Benign hypertension: Status: Chronic Assessment and plan: holding hctz in setting of ckd and rhabdo continue carvedilol and monitor (10) CKD (chronic kidney disease), stage III: Status: Acute Assessment and plan: creatinine below baseline continue providing IV hydration in setting of rhabdo monitor closely avoid nephrotoxic drugs (11) DVT prophylaxis: Status: Acute Assessment and plan: enoxaparin daily Subjective Subjective Interval history since last seen: Patient states that he is doing well today and understands that we are working on finalizing his vancomycin dose. Otherwise he has no other complaints or concerns at this Exam Narrative Exam Narrative: Well-appearing older gentleman sitting up in the chair no acute distress, ANO x 4, heart regular rhythm, lungs clear to auscultation bilaterally, left foot wrapped without surrounding erythema or drainage Objective Last Vital Signs Temp 98.6 F 02/20/24 07:47 Pulse 65 02/20/24 07:47 Resp 20 02/20/24 07:47 BP 122/69 02/20/24 07:47 Pulse Ox 94 02/20/24 07:47 Laboratory Results - last 24 hr 02/19/24 02/19/24 02/20/24 08:05 11:19 05:25 Random Vancomycin 26.9 Acetaminophen < 2 Add-On Test Request DONE Time Spent with Patient Time Spent with Patient: >50 minutes Time was spent: preparing to see the patient(eg.review tests), obtaining and/or reviewing separately otained hiistory, ordering medications,tests, procedures, referring, communicating with other health career and guidance counselor, indepentently interpreting results, counseling the patient and care coordination
--- NOTE | 2024-02-20 10:42 | PT.INTREAT ---
PT Notes Visit Reasons: rhabdomyolysis, transamititis, cellulititis Inpatient Physical Therapy Treatment Note [facility] Date: 02/20/24 PRECAUTIONS:NWB L SUBJECTIVE: Kurtis states that his left hand/wrist is very sore today. He c/o swelling t/o entire left side. Nursing is aware. Reports that he is getting a pic line at some point this am. OBJECTIVE: []? VITALS: monitored by nursing ? Therapeutic Exercises ([id number]) 20 min: Direct one-on-one instruction in therapeutic exercises to develop strength, endurance, range of motion and flexibility. ? Exercises ?performed seated ex routine for U/LE. Including: AP, SLR, hip AB/ADD, heel slides, LAQ and marching x 10-12 each. Bicep curls, shld flex, rows and fist open/close x 10ea. ASSESSMENT:? Unable to accept any wt t/o left wrist/hand which prevented him from transferring sit to stand. He did report feeling looser post ex, however pain did not subside. Swelling noted in left foot of which he felt has been consistent over past few days. PLAN: will continue to work on strength and functional mobility to tolerance following PT POC. TREATMENT CODE/TIME: 20 min [id number]
[2024-02-20] MEDS: Ketorolac 15 MG/ML VIAL IVP ×2 (11:40→19:21)
[2024-02-20] MEDS: Normal Saline 1,000 ML 75 ML IV (11:40)
[2024-02-20] MEDS: rOPINIRole 1 MG TAB PO ×3 (12:01→17:39)
--- NOTE | 2024-02-20 13:42 | DI.RAD_ITS ---
Exam(s) XR PORTABLE CHEST AP POST LINE EXAM: XR PORTABLE CHEST AP POST LINE CLINICAL HISTORY: PICC line placement TECHNIQUE: 2D digital imaging was performed. COMPARISON: CR XR PORTABLE CHEST AP POST LINE from 02/08/2024 FINDINGS: Exam is limited by semi-upright positioning and under penetration. Lungs are not well inflated. PICC line has been inserted via the left arm. The tip lies in the SVC. LUNGS: Grossly clear where visualized. No pleural abnormality seen. HEART: Normal size. AORTA: Normal diameter. BONES: Severe degenerative changes of the right shoulder. Soft tissues: Unremarkable. IMPRESSION: Satisfactory placement of PICC line. DATA REPOSITORY: RADIATION DOSE DELIVERED:
--- NOTE | 2024-02-20 14:20 | DI.VRAD_ITS ---
PROCEDURE INFORMATION: Exam: XR Chest Exam date and time: 02/20/2024 1:58 PM Age: 79 years old Clinical indication: Other: Picc line placement TECHNIQUE: Imaging protocol: Radiologic exam of the chest. Views: 1 view. COMPARISON: CR XR PORTABLE CHEST AP POST LINE 02/08/2024 2:56 PM FINDINGS: Tubes, catheters and devices: PICC line in place with its tip in the mid SVC. Lungs: Unremarkable. No consolidation. Pleural spaces: Unremarkable. No pleural effusion. No pneumothorax. Heart/Mediastinum: Unremarkable. No cardiomegaly. Bones/joints: Degenerative changes in the thoracic spine. Degenerative change of the right shoulder with high-riding head, most likely indicating chronic rotator cuff tear. IMPRESSION: PICC line in place with its tip in the mid SVC. Dictated and Authenticated by: Juan Sellers MD. Ordering:CECILIA Day MD
[2024-02-20 15:29] VITALS: BP 104/53; PULSE 79; RESP 20; TEMP 36.3; O2SAT 92
[2024-02-20] MEDS: rOPINIRole 1 MG TAB 2 MG PO (19:11)
[2024-02-20] MEDS: Insulin Glargine 300 UNITS/3 ML PEN 25 UNITS SC (21:08)
[2024-02-20] MEDS: Pregabalin 100 MG CAP 200 MG PO (21:09)
[2024-02-20] MEDS: Baclofen 10 MG TAB 5 MG PO (21:09)
[2024-02-20] MEDS: Magnesium Oxide 400 MG TAB PO (21:09)
[2024-02-20] MEDS: Doxazosin 2 MG TAB 4 MG PO (21:09)
--- NOTE | 2024-02-20 21:42 | PGE_ITS ---
Date of Service Date of service: 02/20/24 Time of Service: 11:30 Assessment and Plan Assessment and plan (1) Ulcer of left foot with necrosis of bone: Status: Acute Assessment and plan: 79-year-old man with osteomyelitis and chronic wounds of the left foot. And with nursing staff and they have no concerns acutely today. They state the dressing orders from podiatry are clear and have been following them. The patient has no concerns or complaints. At this time, I have nothing further to add. Call us back if/as needed. Subjective Subjective Interval history since last seen: Patient has no complaints at the bedside. Nursing staff has done his dressing change and wrapped his foot. They have no concerns. Exam Narrative Exam Narrative: General: Interactive and significantly obese man in poor health. Lower extremities: Chronic?appearing bilateral swelling. Visible hemosiderosis and lipodermatosclerosis consistent with chronic venous disease. Left foot: Dressing intact. Objective Last Vital Signs Temp 97.3 F L 02/20/24 15:29 Pulse 79 02/20/24 15:29 Resp 20 02/20/24 15:29 BP 104/53 L 02/20/24 15:29 Pulse Ox 92 02/20/24 15:29 Laboratory Results - last 24 hr 02/20/24 05:25 Random Vancomycin 26.9 Time Spent with Patient Time Spent with Patient: <25 minutes Time was spent: preparing to see the patient(eg.review tests) and referring, communicating with other health family member caretaker
[2024-02-20 23:06] VITALS: BP 109/49; PULSE 72; RESP 18; TEMP 36.5; O2SAT 92
[2024-02-21] MEDS: Normal Saline 1,000 ML 75 ML IV ×2 (00:25→14:39)
[2024-02-21] MEDS: Enoxaparin 40 MG/0.4 ML SYR SC ×2 (07:35→20:32)
[2024-02-21] MEDS: Aspirin E.C. 81 MG TABEC PO (07:36)
[2024-02-21] MEDS: Ferrous Sulfate 325 MG TAB PO (07:36)
[2024-02-21] MEDS: Magnesium Oxide 400 MG TAB 800 MG PO (07:36)
[2024-02-21] MEDS: Pantoprazole 40 MG TABCR PO (07:37)
[2024-02-21] MEDS: Pregabalin 100 MG CAP PO (07:37)
[2024-02-21] MEDS: Empaglifozin 25 MG TAB PO (07:37)
[2024-02-21] MEDS: Vitamins B Comp w/C TAB 1 TAB PO (07:37)
[2024-02-21] MEDS: levoFLOXacin 500 MG, levoFLOXacin 250 MG 750 MG PO (07:37)
[2024-02-21] MEDS: Normal Saline Flush 10 ML SYR IVP ×2 (07:38→20:37)
[2024-02-21] MEDS: Carvedilol 25 MG TAB PO ×2 (07:38→20:33)
[2024-02-21] MEDS: guaiFENesin 600 MG TABCR PO ×2 (07:38→20:34)
[2024-02-21 08:02] VITALS: BP 114/69; PULSE 70; RESP 18; TEMP 36.3; O2SAT 95
--- NOTE | 2024-02-21 10:15 | PT.INTREAT ---
PT Notes Visit Reasons: rhabdomyolysis, transamititis, cellulititis Inpatient Physical Therapy Treatment Note [facility] Date: 02/21/24 PRECAUTIONS:NWB L SUBJECTIVE: Kurtis states that he is going home later today. He is feeling better and stronger compared to yesterday. OBJECTIVE: []? PAIN: none VITALS: ? monitored by nursing Therapeutic Activities ([id number]): Direct one-on-one instruction in dynamic activities to improve functional performance. ?? pt seated in recliner. ? BED MOBILITY/TRANSFERS? Sit-stand: CGA ? Stand-sit:SBA ? GAIT? Assistive Device: FWW ? Weight bearing: NWB L (ambulated on heel) Assist: CGA/SBA? Distance:?15' to toilet with myself and back with nursing. ? Deviation: slow bell due to walking on heel.? Therapeutic Exercises ([id number]): Direct one-on-one instruction in therapeutic exercises to develop strength, endurance, range of motion and flexibility. ? Exercises: AP, SLR, hip AB/ADD, heel slides and LAQ in sitting x 10 each. Bicep curls and rows with red theraband x 10ea as well as shld flex without resistance x10. Provided skilled instruction in proper exercise performance for proper posture. ASSESSMENT:? improved strength compared to yesterday. Less pain and stiffness in left UE. No LOB with transfer/gait. PLAN: possible dc home later today. If he is still here tomorrow will continue to work on his strength and functional mobility as per POC. TREATMENT CODE/TIME: 25 min [id number]
[2024-02-21] MEDS: rOPINIRole 1 MG TAB PO ×3 (11:57→17:40)
[2024-02-21 14:07] LABS: Platelet Count 141 10^3/uL (130-400)
[2024-02-21 14:19] LABS: Vancomycin, Trough 16.4 ug/mL (10.0-20.0)
[2024-02-21] MEDS: VANCOMYCIN/WATER (PEG) 2 GM/400 ML BAG IV (14:38)
--- NOTE | 2024-02-21 15:35 | W.PM.PROGNOT ---
Date of Service Date of service: 02/21/24 Time of Service: 15:36 Assessment and Plan Assessment and plan (1) Rhabdomyolysis: Status: Acute Assessment and plan: -CPK continues trending downward -continue IV hydration with reduced rate (last EF 55-60% with no WMA's) -avoid nephrotoxic medications -thought d/t daptomycin (2) Rash: Status: Resolved Assessment and plan: -less likely to be DRESS given that eosinophils are normal and the rash has resolved. -dapto and ceftriaxone both stopped -monitor (3) Transaminitis: Status: Acute Assessment and plan: -trending downward -avoid heptatoxic medications. -Acetaminophen level checked and less than 2 (4) Osteomyelitis of left foot: Status: Acute Assessment and plan: -[place]iatry [place] [facility] [place]will continue IV vanco with pharmacy dosing and PO levaquin. -podiatry consult for continuity of care, dressing recommendations (5) Restless leg syndrome: Status: Acute Assessment and plan: -continue home medications (6) Diabetes mellitus type 2: Status: Chronic Assessment and plan: -diabetic diet, home basal insulin, blood sugars are well controlled. -check blood sugars ac/hs and provide ss coverage. -holding oral diabetic agents in setting of rhabdo and CKD -monitor closely (7) Obstructive sleep apnea syndrome: Status: Chronic Assessment and plan: home cpap (8) Benign prostatic hyperplasia: Status: Chronic Assessment and plan: continue home medication and monitor for retention (9) Benign hypertension: Status: Chronic Assessment and plan: holding hctz in setting of ckd and rhabdo continue carvedilol and monitor (10) CKD (chronic kidney disease), stage III: Status: Acute Assessment and plan: creatinine below baseline continue providing IV hydration in setting of rhabdo monitor closely avoid nephrotoxic drugs (11) DVT prophylaxis: Status: Acute Assessment and plan: enoxaparin daily Subjective Subjective Interval history since last seen: Patient states that he is doing well today and understands that we are working on finalizing his vancomycin dose. Otherwise he has no other complaints or concerns at this Exam Narrative Exam Narrative: Well-appearing older gentleman sitting up in the chair no acute distress, ANO x 4, heart regular rhythm, lungs clear to auscultation bilaterally, left foot wrapped without surrounding erythema or drainage Objective Last Vital Signs Temp 97.4 F L 02/21/24 08:02 Pulse 70 03/24/24 08:02 Resp 18 02/21/24 08:02 BP 114/69 02/21/24 08:02 Pulse Ox 95 02/21/24 08:02 Laboratory Results - last 24 hr 02/21/24 13:47 Plt Count 141 Vancomycin Trough 16.4 Time Spent with Patient Time Spent with Patient: >50 minutes Time was spent: preparing to see the patient(eg.review tests), obtaining and/or reviewing separately otained hiistory, ordering medications,tests, procedures, referring, communicating with other health intensive care anaesthetist, indepentently interpreting results, counseling the patient and care coordination
[2024-02-21 15:51] VITALS: BP 129/75; PULSE 70; RESP 17; TEMP 36.2; O2SAT 95
[2024-02-21] MEDS: rOPINIRole 1 MG TAB 2 MG PO (20:33)
[2024-02-21] MEDS: Doxazosin 2 MG TAB 4 MG PO (20:33)
[2024-02-21] MEDS: Pregabalin 100 MG CAP 200 MG PO (20:33)
[2024-02-21] MEDS: Magnesium Oxide 400 MG TAB PO (20:34)
[2024-02-21] MEDS: Baclofen 10 MG TAB 5 MG PO (20:34)
[2024-02-21] MEDS: Insulin Glargine 300 UNITS/3 ML PEN 25 UNITS SC (22:20)
[2024-02-21 23:23] VITALS: BP 126/66; PULSE 66; RESP 20; TEMP 35.6; O2SAT 96
[2024-02-22] MEDS: Normal Saline 1,000 ML 75 ML IV (04:30)
[2024-02-22] MEDS: Normal Saline Flush 10 ML SYR IVP ×3 (07:40→20:40)
[2024-02-22] MEDS: Enoxaparin 40 MG/0.4 ML SYR SC ×2 (07:41→21:21)
[2024-02-22] MEDS: Magnesium Oxide 400 MG TAB 800 MG PO (07:42)
[2024-02-22] MEDS: Vitamins B Comp w/C TAB 1 TAB PO (07:42)
[2024-02-22] MEDS: guaiFENesin 600 MG TABCR PO ×2 (07:42→21:21)
[2024-02-22] MEDS: levoFLOXacin 500 MG, levoFLOXacin 250 MG 750 MG PO (07:42)
[2024-02-22] MEDS: Empaglifozin 25 MG TAB PO (07:42)
[2024-02-22] MEDS: Pregabalin 100 MG CAP PO (07:42)
[2024-02-22] MEDS: Pantoprazole 40 MG TABCR PO (07:43)
[2024-02-22] MEDS: Aspirin E.C. 81 MG TABEC PO (07:43)
[2024-02-22] MEDS: Carvedilol 25 MG TAB PO ×2 (07:43→21:20)
[2024-02-22] MEDS: Ferrous Sulfate 325 MG TAB PO (07:45)
[2024-02-22 07:52] VITALS: BP 140/75; PULSE 62; RESP 18; TEMP 36.6; O2SAT 97
[2024-02-22 08:55] LABS: Abs Immature Grans 0.04 10^3/uL (0.0-0.06); Absolute Basophil Count 0.02 10^3/uL (0.0-0.2); Absolute Eosinophil Count 0.25 10^3/uL (0.0-0.7); Absolute Lymphocyte Count 0.37 10^3/uL (1.2-3.4); Absolute Monocyte Count 0.35 10^3/uL (0.1-0.8); Absolute Neutrophil Count 5.16 10^3/uL (1.2-6.7); Basophils % 0.3; HCT 33.4 % (40.0-50.0); HGB 10.4 g/dL (13.5-17.5); Immature Grans % 0.6; MCH 25.1 pg (27.0-33.0); MCHC 31.1 % (32.0-36.0); MCV 81 fL (80-95); MPV 9.1 fL (8.0-11.0); Monocytes % 5.7; Neutrophils % 83.4; Platelet Count 141 10^3/uL (130-400); RBC 4.15 10^6/uL (4.36-5.78); RDW 19.2 % (11.8-14.1); RDW-SD 55.1 fL; WBC 6.19 10^3/uL (4.4-10.8)
[2024-02-22 09:12] LABS: ALT 99 U/L (16-63); AST 87 U/L (15-37); Albumin 2.5 g/dL (3.4-5.0); Alkaline Phosphatase 158 U/L (46-116); Anion Gap 9.2 mmol/L (3-11); BUN 35 mg/dL (7-18); Bilirubin, Total 0.5 mg/dL (0.2-1.0); C-Reactive Protein 9.34 mg/dL (<or=0.5); CO2 23.8 mmol/L (21.0-32.0); CREATININE 1.3 mg/dL (0.70-1.30); Calcium 8.9 mg/dL (8.5-10.1); Chloride 104 mmol/L (98-107); Creatine Kinase 243 U/L (39-308); Estimated GFR 55.19 (mL/min/1.73m2); Glucose 111 mg/dL (74-106); Potassium 4.4 mmol/L (3.5-5.1); Sodium 137 mmol/L (136-145); Total Protein 6.9 g/dL (6.4-8.2)
--- NOTE | 2024-02-22 10:06 | CMPROGNOTE_ITS ---
Date of service: 02/22/24 Care Management Progress Note Progress Note Text Progress Note Text: S/O: Kurtis was getting out of his chair when CM came in the room and was asking for assistance. CM coordinated with RN for Pt requested nursing assistance. CM worked with SENIOR TAX ANALYST for new home IV ABX and faxed new orders to [facility]. CM following. A: Kurtis is an 79 year old male admitted to [facility] on 02/17/24 for rhabdomyolysis, transamitis, cellulitis. P: Kurtis will transport home once medically cleared via private vehicle. He will resume his home IV infusion through [facility] once his new IV antibiotic course is identified. He will follow up with his PCP and discharge plan of care. He will resume HH RN and PT. CM will continue to follow. SDOH(Care Management) Screening Will the Patient Participate in the Screening?: Declined to provide Do you worry about having a steady place to live?: choose not to answer In the past 12 months, have you had to go without electric, gas, oil or water in your home?: choose not to answer Have you or anyone in your house had to go without enough food to eat?: choose not to answer Has lack of transportation kept you from medical appointments or from doing things needed for daily living?: choose not to answer Has anyone in your support network made you feel unsafe for any reason?: choose not to answer
--- NOTE | 2024-02-22 10:26 | PT.INTREAT ---
PT Notes Visit Reasons: rhabdomyolysis, transamititis, cellulititis Inpatient Physical Therapy Treatment Note [facility] Date: 02/22/24 PRECAUTIONS:NWB L SUBJECTIVE: Kurtis states that he is doing well. He was hoping that he will go home today but hasn't heard any definitive planning. OBJECTIVE: []? PAIN: none VITALS: ? monitored by nursing Therapeutic Activities ([id number]): Direct one-on-one instruction in dynamic activities to improve functional performance. ?? pt seated in recliner. ? BED MOBILITY/TRANSFERS? Sit-stand: CGA ? Stand-sit:SBA ? sit to stand ex x5 with NWB L GAIT? Assistive Device: ?FWW ? Weight bearing: NWB L Assist: Min/mod A? Distance:??in place. ? Deviation:? attempted HR/ hopping while standing at walker. ? Therapeutic Exercises ([id number]): Direct one-on-one instruction in therapeutic exercises to develop strength, endurance, range of motion and flexibility. ? Exercises: Seated: LE, AP, marching x20, LAQ, hamstring curls and hip ABD with red theraband, x20 each. UE, Rows, bicep curls with red theraband x20 ea. Horizonal ABD with red theraband x10. Chair push ups x5. Provided skilled instruction in proper exercise performance for proper posture. ASSESSMENT:? continue to note strength improvement as he was able to tolerate an increase in resistance as well as reps today. He does have difficulty with chair push ups/ sit to stand without use of left LE due to left arm weakness. I did encourage him to attempt 2-3 seated chair push ups t/o the day. PLAN: will continue to work on strength and functional mobility. TREATMENT CODE/TIME: 20 min in AM [id number] . 25 min in PM [id number], [id number]
[2024-02-22] MEDS: Nystatin POWDER 15 GM JAR TP ×2 (12:11→21:22)
[2024-02-22] MEDS: rOPINIRole 1 MG TAB PO ×3 (12:11→17:45)
[2024-02-22] MEDS: VANCOMYCIN/WATER (PEG) 2 GM/400 ML BAG IV (14:06)
[2024-02-22 15:05] VITALS: BP 153/72; PULSE 69; RESP 20; TEMP 36.4; O2SAT 95
--- NOTE | 2024-02-22 17:59 | W.PM.PROGNOT ---
Date of Service Date of service: 02/22/24 Time of Service: 17:59 Assessment and Plan Assessment and plan (1) Rhabdomyolysis: Status: Resolved Assessment and plan: -CPK normalized -stop IV hydration with reduced rate (last EF 55-60% with no WMA's) -avoid nephrotoxic medications -thought d/t daptomycin (2) Rash: Status: Resolved Assessment and plan: -less likely to be DRESS given that eosinophils are normal and the rash has resolved. -dapto and ceftriaxone both stopped -monitor (3) Transaminitis: Status: Acute Assessment and plan: -stable -avoid heptatoxic medications. -Acetaminophen level checked and less than 2 (4) Osteomyelitis of left foot: Status: Acute Assessment and plan: -followed by podiatry and [place] [facility]will continue IV vanco with pharmacy dosing and PO levaquin. -podiatry consult for continuity of care, dressing recommendations (5) Restless leg syndrome: Status: Acute Assessment and plan: -continue home medications (6) Diabetes mellitus type 2: Status: Chronic Assessment and plan: -diabetic diet, home basal insulin, blood sugars are well controlled. -check blood sugars ac/hs and provide ss coverage. -holding oral diabetic agents in setting of rhabdo and CKD -monitor closely (7) Obstructive sleep apnea syndrome: Status: Chronic Assessment and plan: home cpap (8) Benign prostatic hyperplasia: Status: Chronic Assessment and plan: continue home medication and monitor for retention (9) Benign hypertension: Status: Chronic Assessment and plan: holding hctz in setting of ckd and rhabdo continue carvedilol and monitor (10) CKD (chronic kidney disease), stage III: Status: Acute Assessment and plan: creatinine below baseline continue providing IV hydration in setting of rhabdo monitor closely avoid nephrotoxic drugs (11) DVT prophylaxis: Status: Acute Assessment and plan: enoxaparin daily (12) Discharge planning issues: Status: Acute Assessment and plan: plan to discharge to home on IV antibiotics, will be followed outpatient by [facility] [place] and podiatry orders sent to home infusion pharmacy. discussed with Dr Duke Subjective Subjective Patient reports: no new complaints, feels better, tolerating liquids well, tolerating a regular diet and afebrile; denies shortness of breath Exam Const General: cooperative, healthy appearing and no acute distress Nutritional Appearance: obese Orientation: alert, awake and oriented x3 HENMT Head: normal to inspection, normocephalic and atraumatic Ears: external ears normal General nose exam: external nose normal Face and sinus: normal facial exam Mouth: moist mucous membranes Eyes General: appearance normal, both eyes and all related structures Neck Neck: normal visual inspection Chest Chest: normal inspection of the chest Resp Effort & Inspection: normal respiratory effort and able to speak in complete sentences Cardio Rate: regular rate GI Inspection: normal to inspection Skin Lesions: lesion noted (Dressing is clean dry and intact) Neuro General: patient alert and patient oriented x3 Psych Mental Status: mental status grossly normal Objective Last Vital Signs Temp 36.4 C L 02/22/24 15:05 Pulse 69 02/22/24 15:05 Resp 20 02/22/24 15:05 BP 153/72 H 02/22/24 15:05 Pulse Ox 95 02/22/24 15:05 Laboratory Results - last 24 hr 02/22/24 02/22/24 08:50 08:50 WBC 6.19 RBC 4.15 L Hgb 10.4 L Hct 33.4 L MCV 81 MCH 25.1 L MCHC 31.1 L RDW 19.2 H Plt Count 141 MPV 9.1 Immature Gran % 0.6 Neutrophils % 83.4 Lymphocytes % 6.0 Monocytes % 5.7 Eosinophils % 4.0 Basophils % 0.3 Nucleated RBC % 0.0 Absolute Neutrophils 5.16 Absolute Lymphocytes 0.37 L Absolute Monocytes 0.35 Absolute Eosinophils 0.25 Absolute Basophils 0.02 Sodium 137 Potassium 4.4 Chloride 104 Carbon Dioxide 23.8 Anion Gap 9.2 BUN 35 H Creatinine 1.3 Est GFR (CKD-EPI 2020) 55.19 Glucose 111 H Calcium 8.9 Total Bilirubin 0.5 AST 87 H ALT 99 H Alkaline Phosphatase 158 H Creatine Kinase 243 C-Reactive Protein 9.34 H Cancelled Total Protein 6.9 Albumin 2.5 L Time Spent with Patient Time Spent with Patient: 35-49 minutes Time was spent: preparing to see the patient(eg.review tests), obtaining and/or reviewing separately otained hiistory, ordering medications,tests, procedures, indepentently interpreting results, counseling the patient and care coordination
[2024-02-22 19:30] VITALS: BP 141/75; PULSE 77; RESP 18; TEMP 36.6; O2SAT 97
[2024-02-22] MEDS: Pregabalin 100 MG CAP 200 MG PO (21:19)
[2024-02-22] MEDS: Baclofen 10 MG TAB 5 MG PO (21:20)
[2024-02-22] MEDS: rOPINIRole 1 MG TAB 2 MG PO (21:20)
[2024-02-22] MEDS: Magnesium Oxide 400 MG TAB PO (21:20)
[2024-02-22] MEDS: Doxazosin 2 MG TAB 4 MG PO (21:20)
[2024-02-22] MEDS: Insulin Glargine 300 UNITS/3 ML PEN 25 UNITS SC (21:21)
[2024-02-22 22:35] VITALS: BP 134/72; PULSE 72; RESP 18; TEMP 37; O2SAT 94
[2024-02-23 00:23] VITALS: RESP 18
[2024-02-23 07:30] VITALS: BP 137/66; PULSE 70; RESP 18; TEMP 37.1; O2SAT 93
[2024-02-23] MEDS: Aspirin E.C. 81 MG TABEC PO (07:47)
[2024-02-23] MEDS: Normal Saline Flush 10 ML SYR IVP ×3 (07:47→16:23)
[2024-02-23] MEDS: levoFLOXacin 500 MG, levoFLOXacin 250 MG 750 MG PO (07:48)
[2024-02-23] MEDS: Carvedilol 25 MG TAB PO (07:48)
[2024-02-23] MEDS: Ferrous Sulfate 325 MG TAB PO (07:49)
[2024-02-23] MEDS: guaiFENesin 600 MG TABCR PO (07:49)
[2024-02-23] MEDS: Pantoprazole 40 MG TABCR PO (07:49)
[2024-02-23] MEDS: Empaglifozin 25 MG TAB PO (07:50)
[2024-02-23] MEDS: Magnesium Oxide 400 MG TAB 800 MG PO (07:50)
[2024-02-23] MEDS: Nystatin POWDER 15 GM JAR TP (07:53)
[2024-02-23] MEDS: Pregabalin 100 MG CAP PO (07:58)
[2024-02-23] MEDS: Vitamins B Comp w/C TAB 1 TAB PO (07:58)
[2024-02-23] MEDS: Enoxaparin 40 MG/0.4 ML SYR SC (08:35)
--- NOTE | 2024-02-23 09:15 | CMPROGNOTE_ITS ---
Date of service: 02/23/24 Care Management Progress Note Progress Note Text Progress Note Text: S/O: Kurtis was sitting up in a chair when talking with CM. CM and Kurtis discussed discharge planning including new home IV ABX changes and CM letting [facility] and [facility] know the updated antibiotic and new PICC line information. Kurtis did share for 02/24/24 dosing needed at 2:00 that he is a agreeable to come to [facility] infusion at 12:00. Kurtis shared keeping the doising of the IV ABX at 12:00 would work best at home since his daughter Amrita would have a break at school at that time and would be able to assist. CM following. A: Kurtis is an 79 year old male admitted to [facility] on 02/17/24 for rhabdomyolysis, transamitis, cellulitis. P: Kurtis will transport home once medically cleared via private vehicle. He will resume his home IV infusion through [facility] once his new IV antibiotic c ourse is identified. He will follow up with his PCP and discharge plan of care. He will resume HH RN and PT. CM will continue to follow. SDOH(Care Management) Screening Will the Patient Participate in the Screening?: Declined to provide Do you worry about having a steady place to live?: choose not to answer In the past 12 months, have you had to go without electric, gas, oil or water in your home?: choose not to answer Have you or anyone in your house had to go without enough food to eat?: choose not to answer Has lack of transportation kept you from medical appointments or from doing things needed for daily living?: choose not to answer Has anyone in your support network made you feel unsafe for any reason?: choose not to answer
--- NOTE | 2024-02-23 09:30 | PT.INTREAT ---
PT Notes Visit Reasons: rhabdomyolysis, transamititis, cellulititis Date: 02/23/24 PRECAUTIONS:NWB L SUBJECTIVE: Pt reports he is doing much better, reports pain on right shoulder and base of left index finger. OBJECTIVE: ? PAIN: yes right shoulder and base of left finger VITALS: ? monitored by nursing Therapeutic Activities ([id number]): Direct one-on-one instruction in dynamic activities to improve functional performance. ?? pt seated in recliner. ? BED MOBILITY/TRANSFERS? Sit-stand: SBA ? Stand-sit:SBA ? sit to stand ex x6 with NWB LLE (2 pillows on chair) GAIT? Assistive Device: ?FWW ? Weight bearing: NWB L Assist: CGA ? Distance:??in place. ? Deviation:?Static standing NWB on LLE ? Therapeutic Exercises ([id number]): Direct one-on-one instruction in therapeutic exercises to develop strength, endurance, range of motion and flexibility. ? Exercises: Seated: LE, AP, marching x20, LAQ, hamstring curls and hip ABD with red theraband, x20 each. UE, Rows, bicep curls with red theraband x20 ea. Horizonal ABD with red theraband x10. Chair push ups x5. Provided skilled instruction in proper exercise performance for proper posture. ASSESSMENT:? continue to note strength improvement as he was able to tolerate an increase in resistance as well as reps today. He does have difficulty with chair push ups/ sit to stand without use of left LE due to left arm weakness. I did encourage him to attempt 2-3 seated chair push ups t/o the day. PLAN: will continue to work on strength and functional mobility. TREATMENT CODE/TIME: [id number], [id number], 25mins (9:10-9:35am).
--- NOTE | 2024-02-23 10:52 | W.PM.DS.N ---
Date of service: 02/23/24 Time of Service: 10:53 DS: Diagnosis Discharge Diagnosis (1) Rhabdomyolysis: Status: Resolved (2) Rash: Status: Resolved (3) Transaminitis: Status: Acute (4) Osteomyelitis of left foot: Status: Acute (5) Restless leg syndrome: Status: Acute (6) Diabetes mellitus type 2: Status: Chronic (7) Obstructive sleep apnea syndrome: Status: Chronic (8) Benign prostatic hyperplasia: Status: Chronic (9) Benign hypertension: Status: Chronic (10) CKD (chronic kidney disease), stage III: Status: Acute Discharge Plan Disposition Patient Disposition: Home W/Home Health Services Condition: Good Discharge Details Reason For Visit: rhabdomyolysis, transamititis, cellulititis Admit Date/Time: 02/17/24 14:59 Admit Provider: Shay Santoro Attending Provider: Shay Santoro Primary Care Provider: Cameron Mcarthur [facility] Hospital Course: Patient initially presented as he was having adverse reaction to the IV daptomycin that he was receiving through home infusion. He had elevated CK and LFTs which resolved after discontinuing daptomycin and starting IV vancomycin as per his infectious disease doctor at [facility]. Ultimately was determined that the patient would continue IV antibiotic therapy at home and his vancomycin dose is now 2 g every 24 hours. Patient is also going to go to infusion center until he receives his delivery of his IV vancomycin at home. Home Meds and New Rx's Prescriptions: New levofloxacin 750 mg Tablet 750 mg PO QAM Qty: 30 0RF vancomycin-diluent combo no.1 2 gram/400 mL Piggyback 2 g IV Q24H Qty: 0 0RF Continued magnesium oxide 400 mg (241.3 mg magnesium) tablet 800 mg PO DAILY insulin glargine [Lantus U-100 Insulin] 100 unit/mL solution 25 unit subcut QHS Patient Comments: pt. took 25 units vitamin B complex [B Complex-Vitamin B12] Tablet 1 tab PO DAILY aspirin 81 mg tablet,delayed release (DR/EC) 81 mg PO DAILY pantoprazole 40 mg tablet,delayed release (DR/EC) 40 mg PO DAILY pregabalin 200 mg capsule 200 mg PO QHS Qty: 90 3RF pregabalin 100 mg capsule 100 mg PO .COMPLEX Qty: 180 3RF Rx Instructions: 100 mg orally daily in am with an extra 100mg at noon prn neuropathy pain; ketoconazole 2 % cream 1 applic topical DAILY PRN Jardiance 25 mg tablet 25 mg PO DAILY fluticasone propionate 50 mcg/actuation spray,suspension 1 spray intranasal DAILY PRN (Reason: nasal congestion) Rx Instructions: administer into each nostril doxazosin [Cardura] 4 mg tablet 4 mg PO QPM losartan [Cozaar] 100 MG tablet 100 mg PO DAILY insulin lispro [Humalog KwikPen Insulin] 100 unit/mL insulin pen See Rx Instructions subcut .SLIDING SCALE Patient Comments: pt. reports taking 15 units Rx Instructions: subcutaneously SLIDING SCALE; bolus range of 15-25u at 2 meals a day (SQ SLIDING SCALE); ropinirole 2 mg tablet 2 mg PO .nightly ferrous sulfate [FeroSul] 325 mg (65 mg iron) tablet 325 mg PO DAILY Patient Comments: TAKE ONE TABLET BY MOUTH EVERY DAY metformin 500 mg tablet 500 mg PO BID Patient Comments: TAKE ONE TABLET BY MOUTH TWICE A DAY baclofen 5 mg tablet 5 mg PO HS Patient Comments: TAKE ONE TABLET BY MOUTH AT BEDTIME ropinirole 1 mg tablet 1 mg PO TID Rx Instructions: 1mg at noon, 2PM, and 6PM acetaminophen 500 mg tablet 1,000 mg PO TID PRN carvedilol 25 mg tablet 25 mg PO BID Held penicillin V potassium 500 mg tablet 500 mg PO TID Qty: 273 3RF Hold Instructions: until discussed with outpatient team Rx Instructions: take 1 tablet by mouth three times daily hydrochlorothiazide 50 MG tablet 50 mg PO DAILY Qty: 0 0RF Hold Instructions: until discussed with outpatient team Discontinued ceftriaxone 2 gram recon soln 2 g IV DAILY daptomycin 500 mg recon soln 800 mg IV Q24H Rx Instructions: administer over 30 mins No Action (DME) AFO custom See Rx Instructions .Route .MEDSUPPLY Qty: 1 0RF Hold Instructions: Pt Stopped/Never Started Rx Instructions: As directed Discharge Instructions Instructions: Osteomyelitis (DC), Rhabdomyolysis (DC) Additional Instructions: Left foot wound daily dsg changes- cleanse with sterile saline, pack lower wound with quarter inch iodoform gauze, 4 x 4, Kerlix, Eduin wrap. Patient is to keep his left lower extremity elevated at all times. routine PICC line care daily antibiotics as directed. Referrals: Brooke Servin [ [facility] STAFF PHYSICIAN] - Parvin Li DPM [[facility]] - Activity:: non weight bearing left Equipment/Supplies:: No Equipment Needed Diet:: Carb Counting Discharge Orders Discharge Orders: Discharge Order (Routine); Ordered 02/23/24 Ordered By: Denise Mathur DS: Summary Time Spent with Patient providing and/or coordinating discharge services: Less than 30 minutes Status at Discharge Functional status at discharge: uses cane/walker Overall status at discharge: patient is progressing back to baseline Mental Status: mental status grossly normal Speech and Movement: speech and movement normal Mood: congruent mood Affect: normal affect Quality:SDOH Health Related Social Needs: Health related social needs inadequate housing Health related social needs details old farm house Exam Const General: cooperative, healthy appearing and no acute distress Nutritional Appearance: obese Orientation: alert, awake and oriented x3 HENMT Head: normal to inspection, normocephalic and atraumatic Ears: external ears normal General nose exam: external nose normal Face and sinus: normal facial exam Mouth: moist mucous membranes Eyes General: appearance normal, both eyes and all related structures Neck Neck: normal visual inspection Chest Chest: normal inspection of the chest Resp Effort & Inspection: normal respiratory effort and able to speak in complete sentences Cardio Rate: regular rate GI Inspection: normal to inspection Skin Lesions: lesion noted (Dressing is clean dry and intact) Neuro General: patient alert and patient oriented x3 Psych Mental Status: mental status grossly normal Speech and Movement: speech and movement normal Mood: congruent mood Affect: normal affect DS: Data Vitals/I&O Vitals and I&O: Vital Signs Temperature 37.1 C 02/23/24 07:30 Temperature Source Tympanic 02/23/24 07:30 Pulse 70 02/23/24 07:30 Pulse Rhythm Regular 02/23/24 06:05 Respiratory Rate 18 02/23/24 07:30 Respiratory Effort Normal, Non-Labored 02/23/24 06:05 Respiratory Depth Normal 02/23/24 06:05 Respiratory Pattern Normal 02/23/24 06:05 Blood Pressure 137/66 02/23/24 07:30 Blood Pressure Position Sitting 02/17/24 16:17 Pulse Oximetry 93 02/23/24 07:30 Oxygen Delivery Method Room Air 02/23/24 07:30 Oxygen Flow Rate 0 02/23/24 07:30 Pain Level 5 02/22/24 19:30 Comment BP called over radio 02/22/24 19:30 Intake & Output 02/22/24 02/22/24 02/23/24 11:59 23:59 11:59 Intake Total 1937.5 / 2587.5 650 / 2587.5 Output Total 1300 / 3925 2625 / 3925 1400 / 1400 Balance 637.5 / -1337.5 -1975 / -1337.5 -1400 / -1400 Weight 122.5 kg Intake: IV 1487.5 / 1487.5 Oral 450 / 1100 650 / 1100 Output: Urine 1300 / 3925 2625 / 3925 1400 / 1400 Other: Urine Color Yellow Yellow Yellow Urine Appearance Clear Clear Clear Urine Odor Normal Normal Normal Stool Size Small Stool Characteristics Formed Voiding Methods Urinal Urinal Toilet PFS All Active Problems (Updated 02/22/24 @ 18:03 by Denise Mathur NP) Discharge planning issues (Acute) Ulcer of left foot with necrosis of bone (Acute) CKD (chronic kidney disease), stage III (Acute) Transaminitis (Acute) Elevated CPK (Acute) Atherosclerosis of left lower extremity with ulceration (Acute) Diabetic foot infection (Acute) Atherosclerosis of artery of both lower extremities (Acute) Ulcer of left foot with fat layer exposed (Acute) Osteomyelitis of left foot (Acute) Restless leg syndrome (Acute) DVT (deep venous thrombosis) (Chronic) Venous ulcer-leg syndrome, bilateral (Acute) Onychogryphosis (Acute) Venous insufficiency of both lower extremities (Acute) Ulcer of right foot with fat layer exposed (Acute) Controlled type 2 diabetes mellitus with ulcer of toe (Acute) Atherosclerosis of [place] arteries of right leg with ulceration of ankle (Acute) Impacted cerumen, bilateral (Acute) Ulcer of extremity due to chronic venous insufficiency (Acute) Pneumonia (Acute) Nail dystrophy (Acute) Lumbar stenosis (Acute) Carpal tunnel syndrome of left wrist (Acute) Bilateral hand numbness (Acute) Foot drop, bilateral (Acute) Left sided sciatica (Acute) Impairment of speech discrimination (Acute) Asymmetrical sensorineural hearing loss (Acute) Onychomycosis (Acute) DVT prophylaxis (Acute) Sepsis (Acute) Infection of total right knee replacement (Acute) S/p irrigation and debridement; poly exchange; arthrotomy repair DOS: 10/04/2021 Advance care planning (Acute) Bacteremia (Acute) Asymmetrical sensorineural hearing loss (Acute) History of total right knee replacement (Acute 01/16/21) First degree heart block (Acute) DVT prophylaxis (Acute) Cellulitis (Acute) History of total left knee replacement (TKR) (Acute 12/14/19) Dr. Wilson s/p debridement and poly exchange 02/10/20 Hypertension (Chronic) Tubular adenoma of colon (Acute 09/02/16) Tubulovillous adenoma polyp of colon (Chronic) Noted by colonoscopy. Chest pain, rule out acute myocardial infarction (Acute 11/01/13) Abnormal LFTs (Chronic) Secondary to fartty infiltrate of the liver. Diabetic renal disease (Chronic) Benign hypertension (Chronic) Obesity (Chronic) Benign prostatic hyperplasia (Chronic) Obstructive sleep apnea syndrome (Chronic) Nocturnal CPAP Hyperlipidemia (Chronic) Diabetes mellitus type 2 (Chronic) Since approximately 1997. On insulin thereapy. Last hemoglobin A1c 6.5% March 2013. 11-01-2013: Most recent hemoglobin A1c was 6.6 ? date. Medical History Constipation Diabetic neuropathy Renal insufficiency Low blood magnesium (11/01/13) Paresthesias Fatty infiltration of liver Erectile dysfunction Foot drop Unsteady gait History of removal of joint prosthesis of right knee due to infection Microalbuminuria Diabetic polyneuropathy Morbid obesity Sleep apnea BPH (benign prostatic hyperplasia) Myalgia Perennial allergic rhinitis Vertigo Palliative care patient Hearing loss Chronic lower back pain Osteoarthritis Venous insufficiency Sleep apnea with use of continuous positive airway pressure (CPAP) History of seizures as a child Hx of myocardial infarction 10/2011 STRESS TEST COMPLETED 11/29/2019 Hyperlipidemia CAD (coronary artery disease) Cellulitis RIGHT LOWER LEG Diabetes Arthritis Surgical History History of total left hip arthroplasty (07/29/23) Carpal tunnel syndrome of right wrist S/P ECTR: 10/28/2022 H/O total knee replacement left knee 12/14/2019, right knee 01/16/2021 History of tonsillectomy and adenoidectomy H/O heart artery stent X2 2014 colonoscopy (09/02/16) Family History Maternal Aunt Colon cancer Maternal Aunt Colon cancer Father , 70s Heart disease Mother Lung cancer Brother Liver failure Son , tractor accident Accident caused by farm tractor Social History Smoking/Tobacco Use Status: Never Smoking risk assessment performed?: Yes Alcohol Intake: never Drug use: Never Substance use type: does not use Housing: house Do you feel safe at home: Yes Do you feel safe in your relationship?: Yes Additional Social history: unable to assess to privately Time Spent with Patient Time Spent with Patient: <45 minutes Time was spent: preparing to see the patient(eg.review tests), ordering medications,tests, procedures, indepentently interpreting results, counseling the patient and care coordination
[2024-02-23] MEDS: rOPINIRole 1 MG TAB PO ×2 (12:14→14:17)
[2024-02-23] MEDS: VANCOMYCIN/WATER (PEG) 2 GM/400 ML BAG IV (14:17)
== END 2024-02-23 17:10 | disposition home health service (06) | DRG 558 ==
LOC: ER 15:19 → MS 16:06
PROVIDERS: Internal Medicine; Nurse Practitioner Acute Care; Admitting Provider Family Medicine; Emergency Provider Emergency Medicine; PCP Family Medicine; Visit Provider Family Medicine
DX: M62.82 Rhabdomyolysis (principal); M86.8X7 Other osteomyelitis, ankle and foot; L97.424 Non-pressure chronic ulcer of left heel and midfoot with necrosis of bone; Z68.41 Body mass index [BMI] 40.0-44.9, adult; T36.8X5A Adverse effect of other systemic antibiotics, initial encounter; R21 Rash and other nonspecific skin eruption; R74.01 Elevation of levels of liver transaminase levels; G47.33 Obstructive sleep apnea (adult) (pediatric); G25.81 Restless legs syndrome; I12.9 Hypertensive chronic kidney disease with stage 1 through stage 4 chronic kidney disease, or unspecified chronic kidney disease; N18.30 Chronic kidney disease, stage 3 unspecified; N40.0 Benign prostatic hyperplasia without lower urinary tract symptoms; E11.22 Type 2 diabetes mellitus with diabetic chronic kidney disease; E11.69 Type 2 diabetes mellitus with other specified complication; E11.628 Type 2 diabetes mellitus with other skin complications; Z79.4 Long term (current) use of insulin; E78.5 Hyperlipidemia, unspecified; E66.9 Obesity, unspecified; K76.0 Fatty (change of) liver, not elsewhere classified; Z96.651 Presence of right artificial knee joint; M21.372 Foot drop, left foot; M21.371 Foot drop, right foot; B35.1 Tinea unguium; I44.0 Atrioventricular block, first degree; R20.2 Paresthesia of skin; I87.2 Venous insufficiency (chronic) (peripheral); E11.40 Type 2 diabetes mellitus with diabetic neuropathy, unspecified; I25.10 Atherosclerotic heart disease of native coronary artery without angina pectoris; I25.2 Old myocardial infarction; G89.29 Other chronic pain; M54.42 Lumbago with sciatica, left side
CPT/HCPCS: 36573; 00123; 36410; 36415; 71045; 80053; 82550; 84145; 85652; 87040; 93005; 96374; 97110; 97162; 97530; 99221; 99222; 99285; J1650; 80202; 80329; 83735; 85025; 85049; 85610; 85730; 86140; 93010; 99231; 99232; 99233; 99238; J1815; J1885; J3372

== ENCOUNTER 2024-02-25 05:00 | Outpatient (RCR) | payer MEDICARE, SELFPAY ==
[2024-02-09] MEDS: cefTRIAXone 2 GM/50 ML BAG IVPB ×2 (11:45→21:31)
[2024-02-09] MEDS: Normal Saline Flush 10 ML SYR IVP ×2 (11:45→21:31)
[2024-02-10] MEDS: cefTRIAXone 2 GM/50 ML BAG IVPB (09:17)
[2024-02-10] MEDS: Normal Saline Flush 10 ML SYR IVP (09:17)
[2024-02-24] MEDS: Normal Saline Flush 10 ML SYR IVP (12:13)
[2024-02-24] MEDS: VANCOMYCIN/WATER (PEG) 2 GM/400 ML BAG IVPB (12:13)
== END 2024-02-28 23:59 | disposition home or self-care (01) ==
LOC: INF 05:00
PROVIDERS: PCP Family Medicine; Visit Provider Psychiatry & Neurology Neurology
DX: M86.172 Other acute osteomyelitis, left ankle and foot (principal)
CPT/HCPCS: 11042; 96365; 96366; J0696; J0878; J3372

== ENCOUNTER 2024-02-29 20:55 | Outpatient (REF) | payer MEDICARE, SELFPAY ==
[2024-02-29 17:25] LABS: Abs Immature Grans 0.03 10^3/uL (0.0-0.06); Absolute Basophil Count 0.03 10^3/uL (0.0-0.2); Absolute Lymphocyte Count 0.45 10^3/uL (1.2-3.4); Absolute Monocyte Count 0.42 10^3/uL (0.1-0.8); Absolute Neutrophil Count 4.53 10^3/uL (1.2-6.7); Basophils % 0.5; Eosinophils % 1.8; Immature Grans % 0.5; Lymphocytes % 8.1; MCH 24.5 pg (27.0-33.0); MCHC 30.6 % (32.0-36.0); MCV 80 fL (80-95); MPV 9.6 fL (8.0-11.0); Monocytes % 7.6; Neutrophils % 81.5; Platelet Count 208 10^3/uL (130-400); RBC 4.49 10^6/uL (4.36-5.78); RDW 18.8 % (11.8-14.1); RDW-SD 54.3 fL; WBC 5.56 10^3/uL (4.4-10.8)
[2024-02-29 17:40] LABS: ALT 47 U/L (16-63); AST 29 U/L (15-37); Alkaline Phosphatase 166 U/L (46-116); BUN 22 mg/dL (7-18); Bilirubin, Total 0.5 mg/dL (0.2-1.0); C-Reactive Protein 4.62 mg/dL (<or=0.5); CREATININE 1.1 mg/dL (0.70-1.30); Calcium 8.7 mg/dL (8.5-10.1); Chloride 106 mmol/L (98-107); Creatine Kinase 103 U/L (39-308); Estimated GFR 67.44 (mL/min/1.73m2); Glucose 98 mg/dL (74-106); Potassium 4.7 mmol/L (3.5-5.1); Sodium 144 mmol/L (136-145); Total Protein 6.8 g/dL (6.4-8.2)
== END 2024-02-29 20:56 | disposition home or self-care (01) ==
LOC: LBN 20:55
PROVIDERS: PCP Family Medicine; Visit Provider Internal Medicine Infectious Disease
DX: N18.30 Chronic kidney disease, stage 3 unspecified (principal); M86.172 Other acute osteomyelitis, left ankle and foot; R79.82 Elevated C-reactive protein (CRP); R79.89 Other specified abnormal findings of blood chemistry; Z79.2 Long term (current) use of antibiotics
CPT/HCPCS: 80053; 82550; 85025; 86140

== ENCOUNTER 2024-03-02 14:43 | Outpatient (REF) | payer MEDICARE, SELFPAY ==
[2024-03-02 15:43] LABS: Vancomycin, Trough 13.1 ug/mL (10.0-20.0)
== END 2024-03-02 14:44 | disposition home or self-care (01) ==
LOC: LBN 14:43
PROVIDERS: PCP Family Medicine; Visit Provider Internal Medicine Infectious Disease
DX: M86.172 Other acute osteomyelitis, left ankle and foot (principal); Z79.2 Long term (current) use of antibiotics
CPT/HCPCS: 80202

== ENCOUNTER 2024-03-07 15:30 | Outpatient (REF) | payer MEDICARE, SELFPAY ==
[2024-03-07 16:17] LABS: Abs Immature Grans 0.03 10^3/uL (0.0-0.06); Absolute Basophil Count 0.03 10^3/uL (0.0-0.2); Absolute Eosinophil Count 0.18 10^3/uL (0.0-0.7); Absolute Lymphocyte Count 0.43 10^3/uL (1.2-3.4); Absolute Monocyte Count 0.44 10^3/uL (0.1-0.8); Absolute Neutrophil Count 4.39 10^3/uL (1.2-6.7); Basophils % 0.5; Eosinophils % 3.3; HCT 35.4 % (40.0-50.0); HGB 10.8 g/dL (13.5-17.5); Immature Grans % 0.5; Lymphocytes % 7.8; MCH 24.7 pg (27.0-33.0); MCHC 30.5 % (32.0-36.0); MCV 81 fL (80-95); MPV 9.7 fL (8.0-11.0); Neutrophils % 79.9; Platelet Count 159 10^3/uL (130-400); RBC 4.38 10^6/uL (4.36-5.78); RDW 17.8 % (11.8-14.1); RDW-SD 52.4 fL
[2024-03-07 16:45] LABS: ALT 33 U/L (16-63); AST 27 U/L (15-37); Alkaline Phosphatase 139 U/L (46-116); Anion Gap 9.1 mmol/L (3-11); BUN 25 mg/dL (7-18); Bilirubin, Total 0.3 mg/dL (0.2-1.0); C-Reactive Protein 2.04 mg/dL (<or=0.5); CO2 28.9 mmol/L (21.0-32.0); CREATININE 1.1 mg/dL (0.70-1.30); Calcium 8.3 mg/dL (8.5-10.1); Chloride 104 mmol/L (98-107); Creatine Kinase 121 U/L (39-308); Estimated GFR 67.44 (mL/min/1.73m2); Glucose 69 mg/dL (74-106); Potassium 4.4 mmol/L (3.5-5.1); Sodium 142 mmol/L (136-145); Total Protein 6.5 g/dL (6.4-8.2)
[2024-03-07 16:56] LABS: Vancomycin, Trough 9.3 ug/mL (10.0-20.0)
== END 2024-03-07 15:31 | disposition home or self-care (01) ==
LOC: LBN 15:30
PROVIDERS: PCP Family Medicine; Visit Provider Internal Medicine Infectious Disease
DX: L97.526 Non-pressure chronic ulcer of other part of left foot with bone involvement without evidence of necrosis; M86.172 Other acute osteomyelitis, left ankle and foot
CPT/HCPCS: 80053; 82550; 85027; 80202; 85025; 86140

== ENCOUNTER → 2024-03-09 15:17 | Outpatient (BNVA) | payer MEDICARE, SELFPAY | PROVIDERS: PCP Family Medicine; Referring Provider Family Medicine; Visit Provider Podiatrist | DX: M86.9 Osteomyelitis, unspecified; I70.203 Unspecified atherosclerosis of native arteries of extremities, bilateral legs; L03.90 Cellulitis, unspecified; L97.522 Non-pressure chronic ulcer of other part of left foot with fat layer exposed; I83.019 Varicose veins of right lower extremity with ulcer of unspecified site; I83.029 Varicose veins of left lower extremity with ulcer of unspecified site; L97.929 Non-pressure chronic ulcer of unspecified part of left lower leg with unspecified severity; L97.919 Non-pressure chronic ulcer of unspecified part of right lower leg with unspecified severity; E11.9 Type 2 diabetes mellitus without complications | CPT/HCPCS: 99214 ==

== ENCOUNTER 2024-03-15 16:58 | Outpatient (REF) | payer MEDICARE, SELFPAY ==
[2024-03-15 13:44] LABS: Abs Immature Grans 0.01 10^3/uL (0.0-0.06); Absolute Basophil Count 0.02 10^3/uL (0.0-0.2); Absolute Eosinophil Count 0.15 10^3/uL (0.0-0.7); Absolute Lymphocyte Count 0.43 10^3/uL (1.2-3.4); Absolute Neutrophil Count 3.59 10^3/uL (1.2-6.7); Basophils % 0.4; Eosinophils % 3.3; HCT 34.7 % (40.0-50.0); HGB 10.5 g/dL (13.5-17.5); Immature Grans % 0.2; Lymphocytes % 9.3; MCH 24.3 pg (27.0-33.0); MCHC 30.3 % (32.0-36.0); MCV 80 fL (80-95); MPV 10.4 fL (8.0-11.0); Monocytes % 8.7; Neutrophils % 78.1; Platelet Count 116 10^3/uL (130-400); RBC 4.32 10^6/uL (4.36-5.78); RDW 17.8 % (11.8-14.1); RDW-SD 51.8 fL
[2024-03-15 14:12] LABS: ALT 27 U/L (16-63); AST 32 U/L (15-37); Albumin 2.9 g/dL (3.4-5.0); Alkaline Phosphatase 130 U/L (46-116); Anion Gap 10.4 mmol/L (3-11); BUN 19 mg/dL (7-18); Bilirubin, Total 0.4 mg/dL (0.2-1.0); C-Reactive Protein 4.58 mg/dL (<or=0.5); CO2 25.6 mmol/L (21.0-32.0); Calcium 7.7 mg/dL (8.5-10.1); Chloride 107 mmol/L (98-107); Estimated GFR 75.61 (mL/min/1.73m2); Glucose 78 mg/dL (74-106); Potassium 4.6 mmol/L (3.5-5.1); Sodium 143 mmol/L (136-145); Total Protein 6.1 g/dL (6.4-8.2)
[2024-03-15 16:09] LABS: Creatine Kinase 122 U/L (39-308)
[2024-03-23 12:04] LABS: Misc Referral (UVM) See Comments
== END 2024-03-15 16:59 | disposition home or self-care (01) ==
LOC: LBN 16:58
PROVIDERS: PCP Family Medicine; Visit Provider Internal Medicine Infectious Disease
DX: M86.9 Osteomyelitis, unspecified (principal)
CPT/HCPCS: 80053; 82550; 80202; 85025; 86140

== ENCOUNTER 2024-03-21 17:16 | Outpatient (REF) | payer MEDICARE, SELFPAY ==
[2024-03-21 17:48] LABS: Abs Immature Grans 0.02 10^3/uL (0.0-0.06); Absolute Basophil Count 0.04 10^3/uL (0.0-0.2); Absolute Eosinophil Count 0.18 10^3/uL (0.0-0.7); Absolute Lymphocyte Count 0.45 10^3/uL (1.2-3.4); Absolute Monocyte Count 0.54 10^3/uL (0.1-0.8); Absolute Neutrophil Count 4.92 10^3/uL (1.2-6.7); Basophils % 0.7; Eosinophils % 2.9; HCT 38.1 % (40.0-50.0); HGB 11.7 g/dL (13.5-17.5); Immature Grans % 0.3; Lymphocytes % 7.3; MCH 24.5 pg (27.0-33.0); MCHC 30.7 % (32.0-36.0); MCV 80 fL (80-95); MPV 9.6 fL (8.0-11.0); Monocytes % 8.8; Platelet Count 146 10^3/uL (130-400); RBC 4.77 10^6/uL (4.36-5.78); RDW 17.8 % (11.8-14.1); RDW-SD 51.5 fL; WBC 6.15 10^3/uL (4.4-10.8)
[2024-03-21 18:17] LABS: ALT 26 U/L (16-63); AST 27 U/L (15-37); Albumin 3.3 g/dL (3.4-5.0); Alkaline Phosphatase 153 U/L (46-116); Anion Gap 13.5 mmol/L (3-11); BUN 22 mg/dL (7-18); Bilirubin, Total 0.5 mg/dL (0.2-1.0); CO2 24.5 mmol/L (21.0-32.0); CREATININE 1.3 mg/dL (0.70-1.30); Calcium 8.3 mg/dL (8.5-10.1); Chloride 107 mmol/L (98-107); Estimated GFR 55.19 (mL/min/1.73m2); Glucose 85 mg/dL (74-106); Potassium 4.9 mmol/L (3.5-5.1); Sodium 145 mmol/L (136-145); Total Protein 6.6 g/dL (6.4-8.2)
[2024-03-21 18:29] LABS: C-Reactive Protein 2.71 mg/dL (<or=0.5); Creatine Kinase 213 U/L (39-308)
== END 2024-03-21 17:17 | disposition home or self-care (01) ==
LOC: LBN 17:16
PROVIDERS: PCP Family Medicine; Visit Provider Internal Medicine Infectious Disease
DX: M86.172 Other acute osteomyelitis, left ankle and foot (principal)
CPT/HCPCS: 80053; 82550; 85025; 86140

== ENCOUNTER → 2024-03-24 07:53 | Outpatient (BNVA) | payer MEDICARE, SELFPAY | PROVIDERS: PCP Family Medicine; Referring Provider Family Medicine; Visit Provider Podiatrist | DX: M86.9 Osteomyelitis, unspecified; L97.522 Non-pressure chronic ulcer of other part of left foot with fat layer exposed; I70.203 Unspecified atherosclerosis of native arteries of extremities, bilateral legs; I83.018 Varicose veins of right lower extremity with ulcer other part of lower leg; I83.028 Varicose veins of left lower extremity with ulcer other part of lower leg; L97.928 Non-pressure chronic ulcer of unspecified part of left lower leg with other specified severity; L97.918 Non-pressure chronic ulcer of unspecified part of right lower leg with other specified severity | CPT/HCPCS: 11042; 15002; 15275; 29581; Q4186; Q4196 ==

== ENCOUNTER → 2024-04-07 10:06 | Outpatient (BNVA) | payer MEDICARE, SELFPAY | PROVIDERS: PCP Family Medicine; Referring Provider Family Medicine; Visit Provider Podiatrist | DX: Z09 Encounter for follow-up examination after completed treatment for conditions other than malignant neoplasm (principal); M86.9 Osteomyelitis, unspecified; L97.522 Non-pressure chronic ulcer of other part of left foot with fat layer exposed; I70.203 Unspecified atherosclerosis of native arteries of extremities, bilateral legs; L03.90 Cellulitis, unspecified; I83.019 Varicose veins of right lower extremity with ulcer of unspecified site; I83.029 Varicose veins of left lower extremity with ulcer of unspecified site; L97.929 Non-pressure chronic ulcer of unspecified part of left lower leg with unspecified severity; L97.919 Non-pressure chronic ulcer of unspecified part of right lower leg with unspecified severity; E11.9 Type 2 diabetes mellitus without complications; S80.821A Blister (nonthermal), right lower leg, initial encounter | CPT/HCPCS: 11042; 15002; 15275; 29581; Q4196 ==

== ENCOUNTER → 2024-04-20 09:10 | Outpatient (CLI) | payer MEDICARE, SELFPAY ==
--- NOTE | 2024-04-20 15:43 | DI.RAD_ITS ---
Exam(s) XR CHEST 2V PA LATERAL EXAM: XR CHEST 2V PA LATERAL CLINICAL HISTORY: Chronic cough, R05.9, COPD, with low O2 sats 90, 92. TECHNIQUE: 2D digital imaging was performed. COMPARISON: CR,XR XR PORTABLE CHEST AP POST LINE from 02/20/2024 FINDINGS: 2 views: Visually present left PICC line is no longer in place. Cardiomegaly again noted. Mediastinum is not widened. There is a small-moderate size right pleural effusion again noted. Pulmonary venous congestion pattern without confluent airspace pulmonary edema IMPRESSION: Cardiomegaly. Pulmonary congestion. Small-moderate size right pleural effusion. DATA REPOSITORY: RADIATION DOSE DELIVERED:
== END ==
PROVIDERS: PCP Family Medicine; Visit Provider Family Medicine
DX: I51.7 Cardiomegaly (principal)
CPT/HCPCS: 71046

== ENCOUNTER → 2024-04-21 08:19 | Outpatient (BNVA) | payer MEDICARE, SELFPAY | PROVIDERS: PCP Family Medicine; Referring Provider Family Medicine; Visit Provider Podiatrist | DX: M86.9 Osteomyelitis, unspecified (principal); L97.522 Non-pressure chronic ulcer of other part of left foot with fat layer exposed; I70.203 Unspecified atherosclerosis of native arteries of extremities, bilateral legs; L03.116 Cellulitis of left lower limb; L03.115 Cellulitis of right lower limb; E11.9 Type 2 diabetes mellitus without complications; S80.821A Blister (nonthermal), right lower leg, initial encounter; X58.XXXA Exposure to other specified factors, initial encounter; L97.912 Non-pressure chronic ulcer of unspecified part of right lower leg with fat layer exposed; R09.89 Other specified symptoms and signs involving the circulatory and respiratory systems; L53.8 Other specified erythematous conditions; R20.8 Other disturbances of skin sensation; R60.0 Localized edema; R20.2 Paresthesia of skin | CPT/HCPCS: 11042; 29581 ==

== ENCOUNTER 2024-04-21 09:47 | Outpatient (CLI) | payer MEDICARE, SELFPAY ==
[2024-04-21 09:54] LABS: Abs Immature Grans 0.02 10^3/uL (0.0-0.06); Absolute Basophil Count 0.03 10^3/uL (0.0-0.2); Absolute Eosinophil Count 0.15 10^3/uL (0.0-0.7); Absolute Lymphocyte Count 0.44 10^3/uL (1.2-3.4); Absolute Monocyte Count 0.45 10^3/uL (0.1-0.8); Absolute Neutrophil Count 4.28 10^3/uL (1.2-6.7); Basophils % 0.6 %; Eosinophils % 2.8 %; HCT 41.7 % (40.0-50.0); HGB 12.4 g/dL (13.5-17.5); Immature Grans % 0.4 %; Lymphocytes % 8.2 %; MCH 24.6 pg (27.0-33.0); MCHC 29.7 % (32.0-36.0); MCV 83 fL (80-95); MPV 10.2 fL (8.0-11.0); Monocytes % 8.4 %; Neutrophils % 79.6 %; Platelet Count 134 10^3/uL (130-400); RBC 5.04 10^6/uL (4.36-5.78); RDW 17.5 % (11.8-14.1); WBC 5.37 10^3/uL (4.4-10.8)
[2024-04-21 10:34] LABS: Albumin 3.6 g/dL (3.4-5.0); Sodium 143 mmol/L (136-145)
[2024-04-21 11:03] LABS: ALT 23 U/L (16-63); AST 24 U/L (15-37); Alkaline Phosphatase 173 U/L (46-116); Anion Gap 8.9 mmol/L (3-11); BUN 25 mg/dL (7-18); Bilirubin, Total 0.5 mg/dL (0.2-1.0); CO2 28.1 mmol/L (21.0-32.0); CREATININE 1.4 mg/dL (0.70-1.30); Calcium 9.1 mg/dL (8.5-10.1); Chloride 106 mmol/L (98-107); Estimated GFR 50.49 (mL/min/1.73m2); Glucose 115 mg/dL (74-106); Potassium 5.3 mmol/L (3.5-5.1)
== END 2024-04-21 09:48 | disposition home or self-care (01) ==
LOC: LBO 09:48
PROVIDERS: PCP Family Medicine; Visit Provider Family Medicine
DX: R05.9 Cough, unspecified (principal)
CPT/HCPCS: 36415; 80053; 85025

== ENCOUNTER 2024-04-27 16:17 | Outpatient (REF) | payer MEDICARE, SELFPAY ==
[2024-04-27 15:13] LABS: Anion Gap 8.7 mmol/L (3-11); BUN 41 mg/dL (7-18); CO2 30.3 mmol/L (21.0-32.0); CREATININE 1.5 mg/dL (0.70-1.30); Calcium 8.9 mg/dL (8.5-10.1); Chloride 102 mmol/L (98-107); Estimated GFR 46.48 (mL/min/1.73m2); Glucose 104 mg/dL (74-106); Potassium 4.7 mmol/L (3.5-5.1); Sodium 141 mmol/L (136-145)
== END 2024-04-27 16:18 | disposition home or self-care (01) ==
LOC: NCHCN 16:17
PROVIDERS: PCP Family Medicine; Visit Provider Family Medicine
DX: N18.30 Chronic kidney disease, stage 3 unspecified (principal)
CPT/HCPCS: 80048

== ENCOUNTER → 2024-04-28 14:27 | Outpatient (BNVA) | payer MEDICARE, SELFPAY | PROVIDERS: PCP Family Medicine; Referring Provider Family Medicine; Visit Provider Psychiatry & Neurology Neurology | DX: M54.32 Sciatica, left side (principal); E11.40 Type 2 diabetes mellitus with diabetic neuropathy, unspecified; M21.371 Foot drop, right foot; M21.372 Foot drop, left foot; R20.0 Anesthesia of skin; L03.115 Cellulitis of right lower limb; M48.061 Spinal stenosis, lumbar region without neurogenic claudication; R26.81 Unsteadiness on feet; G25.81 Restless legs syndrome; G89.29 Other chronic pain | CPT/HCPCS: 99215 ==

== ENCOUNTER → 2024-05-11 08:52 | Outpatient (BNVA) | payer MEDICARE, SELFPAY | PROVIDERS: PCP Family Medicine; Referring Provider Family Medicine; Visit Provider Podiatrist | DX: L03.115 Cellulitis of right lower limb; I83.019 Varicose veins of right lower extremity with ulcer of unspecified site; I83.029 Varicose veins of left lower extremity with ulcer of unspecified site; E11.9 Type 2 diabetes mellitus without complications; S80.821A Blister (nonthermal), right lower leg, initial encounter; L97.912 Non-pressure chronic ulcer of unspecified part of right lower leg with fat layer exposed; M86.9 Osteomyelitis, unspecified; L97.522 Non-pressure chronic ulcer of other part of left foot with fat layer exposed; I70.203 Unspecified atherosclerosis of native arteries of extremities, bilateral legs; L03.116 Cellulitis of left lower limb; M86.172 Other acute osteomyelitis, left ankle and foot | CPT/HCPCS: 11042 ==

== ENCOUNTER 2024-05-18 13:57 | Outpatient (REF) | payer MEDICARE, SELFPAY | END 2024-05-18 13:58 | disposition home or self-care (01) | LOC: LBN 13:57 | PROVIDERS: PCP Family Medicine; Visit Provider Podiatrist | DX: R93.6 Abnormal findings on diagnostic imaging of limbs (principal) | CPT/HCPCS: 87070; 87075; 87205 ==

== ENCOUNTER → 2024-05-19 00:10 | Outpatient (CLI) | payer MEDICARE, SELFPAY ==
--- NOTE | 2024-05-19 | DI.US_ITS ---
APPROVED REPORT EXAM: Comprehensive 2D, Doppler, and color-flow Echocardiogram Patient Location: Out-Patient [facility] Analyst: Jaz Rutledge RDCS (AE) Indications: Dyspnea, Pulmonary edema Other Information Study Quality: Adequate Conclusion Mild concentric left ventricular hypertrophy. Normal left ventricular chamber size. Ejection fracti on is 35 to 40% with global hypokinesis Normal right ventricular size. Right ventricle is mildly hypocontractile Moderately dilated left atrium. Mildly dilated right atrium Aortic valve is sclerotic and trileaflet without stenosis or regurgitation Normal mitral valve with mild regurgitation Mildly dilated aortic root and ascending aorta Wall motion Left Ventricle The left ventricle is normal size. Left ventricular systolic function is moderately decreased. Mild c oncentric left ventricular hypertrophy. There is global hypokinesis of the left ventricle. There is n o ventricular septal defect visualized. LVEF is 36%. Right Ventricle Right ventricle is grossly normal in size. Right ventricle is mildly hypokinetic. Atria Left atrium is moderately dilated. Right atrium is mildly dilated. The interatrial septum is intact w ith no evidence for an atrial septal defect. Aortic Valve The Aortic valve is sclerotic. Aortic valve is trileaflet. There is no aortic valvular stenosis. No a ortic regurgitation is present. Mitral Valve The mitral valve is normal in structure. No evidence of mitral valve stenosis. Mild mitral regurgitat ion. Tricuspid Valve The tricuspid valve is normal in structure. There is no tricuspid valve stenosis. Trace tricuspid reg urgitation. Unable to assess PA pressure. Pulmonic Valve The pulmonary valve is normal in structure. There is no pulmonic valvular stenosis. Mild pulmonic reg urgitation. Great Vessels Aortic root is mildly dilated. The ascending aorta is mildly dilated. Aortic arch is not well visuali zed. IVC is normal in size and collapses >50% with inspiration. Pericardium There is no pericardial effusion. 2D Dimensions IVSD d PLAX 1.30 cm M: 0.6-1.2 Ao Root d 3.95 cm M: 3.1 - 3.7 LVPW d PLAX 1.30 cm M: 0.6 - 1.2 Ao Asc Diam d 3.80 cm M: 2.6 - 3.4 LVID d PLAX 5.50 cm M: 4.2 - 5.8 LVDs 4.51 cm M: 2.5 - 4.0 LV EF Teichholz 35.9 % FS 17.38 % LV EDV (Teich) 144.8 mL LV ESV (Teich) 92.9 mL M-Mode TAPSE 2.15 cm (M/F) >1.7 Auto EF LV EDV A4C 183.2 mL LV EDV A2C 187.6 mL LV EDV BP 184.3 mL LV ESV A4C 116.7 mL LV ESV A2C 120.4 mL LV ESV BP 117.2 mL LVEF(%) A4C 36.3 % LVEF(%) A2C 35.8 % LVEF(%) BP 36.4 % LV SV A4C 66.6 ml LV SV A2C 67.2 ml LV SV BP 67.2 ml LV CO A4C 3.9 L/min LV CO A2C 4.1 L/min LV CO BP 4.0 L/min HR A4C 59.31 BPM HR A2C 61.33 BPM LV EDV Index (BP) LV Strain Long Pk Overal Avg (s) 9.57 LA Volume LA Length A4C 7.0 cm LA Length A2C 6.1 cm LA Area A4C s 27.42 cm2 LA Area A2C s 26.79 cm2 LA Vol A4C A-L 90.93 mL LA Vol A2C A-L 100.16 mL LA Vol Biplane A-L 102.5 mL LA Vol/BSA A4C A-L LA Vol/BSA A2C A-L LA Vol/BSA BP A-L 45.6 mL/m2 LA Vol A4C MOD 86.2 mL LA Vol A2C MOD 94.6 mL LA Vol BP MOD 96.8 mL RA Volume RA Area A4C 24.0 cm2 RA ESV A4C (A-L) 76.9mL RA Vol/BSA A4C A-L RA Length A4C 6.3 cm RA ESV A4C (MOD) 72.4mL LV Diastology MV E' lateral 0.051 (>0.1 m/s) MV E Vmax 0.85 (0.4-1.3 m/s) MV E/E' LAT 16.71 (<14) Aortic Valve AoV Vmax 1.12 m/s LVOT Vmax 1.08 m/s AoV Peak Grad 5.0 mmHg LVOT Peak Grad 4.7 mmHg AoV Area (Vmax) 3.13 cm2 LVOT VTI 0.253 m AoV VTI 0.289 m LVOT Mean Grad 2.5 mmHg AoV Mean Brian. 0.84 m/s LVOT SV 82.44 mL AoV Mean Grad 3.2 mmHg LVOT Diam s 2.00 cm AoV Area (VTI) 2.85 cm2 Velocity Ratio 0.96 Mitral Valve MV DT 274 (160-240 msec) MV Vmax TIPS 0.75 m/s MV Mean Grad 1.2 (<2mmHg) MV VTI 0.279 m Pulmonary Valve PV Vmax 0.68 (0.5-1.5 m/s) RVOT Vmax 0.35 m/s PV Peak Grad 1.9 mmHg RVOT Peak Gr. 0.5 mmHg PV Mean Brian 0.51 m/s RVOT VTI 0.086 m PV Mean Grad 1.2 mmHg RVOT Mean Gr. 0.3 mmHg Tricuspid Valve TV S' 0.12 m/s
== END ==
PROVIDERS: PCP Family Medicine; Visit Provider Family Medicine
DX: R06.00 Dyspnea, unspecified (principal); I34.0 Nonrheumatic mitral (valve) insufficiency; J81.1 Chronic pulmonary edema
CPT/HCPCS: 93306

== ENCOUNTER → 2024-05-19 00:20 | Outpatient (CLI) | payer MEDICARE, SELFPAY ==
--- NOTE | 2024-05-19 06:30 | DI.RAD_ITS ---
Exam(s) XR FOOT LT COMPLETE EXAM: XR FOOT LT COMPLETE CLINICAL HISTORY: see progression, osteomyelitis lt foot, M86.9. TECHNIQUE: 2D digital imaging was performed of the left foot. Three images were obtained. AP, obli que and lateral views were obtained. COMPARISON: CR XR FOOT LT COMPLETE from 02/03/2024 FINDINGS: BONES: No acute fracture is present. There again seen erosive changes at the distal and lateral aspec t of the cuboid which have slightly progressed. The bony fragment seen at the base of the 5th metata rsal bone is displaced more proximally. It also appears to show evidence of erosion on the distal as pect. The cortex of the lateral aspect of the base of the 5th metatarsal is less defined on the curr ent examination suggesting progression of disease. JOINTS: No dislocation present. SOFT TISSUE: There is again seen a linear radiopaque density in the soft tissues adjacent to the cubo id which may represent a foreign body. Vascular calcifications are present. There is mild soft tiss ue swelling of the lateral aspect of the foot near the tarsometatarsal joints. IMPRESSION: Findings suggesting mild progression of the erosive changes involving the base of the 5th metatarsal and the distal and lateral aspect of the cuboid bone. DATA REPOSITORY: RADIATION DOSE DELIVERED:
== END ==
PROVIDERS: PCP Family Medicine; Visit Provider Podiatrist
DX: M86.9 Osteomyelitis, unspecified (principal)
CPT/HCPCS: 73630

== ENCOUNTER 2024-05-20 16:49 | Outpatient (REF) | payer MEDICARE, SELFPAY ==
[2024-05-20 15:40] LABS: Abs Immature Grans 0.02 10^3/uL (0.0-0.06); Absolute Basophil Count 0.03 10^3/uL (0.0-0.2); Absolute Eosinophil Count 0.14 10^3/uL (0.0-0.7); Absolute Lymphocyte Count 0.52 10^3/uL (1.2-3.4); Absolute Monocyte Count 0.67 10^3/uL (0.1-0.8); Absolute Neutrophil Count 4.82 10^3/uL (1.2-6.7); Basophils % 0.5 %; Eosinophils % 2.3 %; HCT 46.6 % (40.0-50.0); HGB 14.6 g/dL (13.5-17.5); Immature Grans % 0.3 %; Lymphocytes % 8.4 %; MCH 25.2 pg (27.0-33.0); MCHC 31.3 % (32.0-36.0); MCV 81 fL (80-95); MPV 10.2 fL (8.0-11.0); Monocytes % 10.8 %; Neutrophils % 77.7 %; Platelet Count 166 10^3/uL (130-400); RBC 5.79 10^6/uL (4.36-5.78); RDW 16.9 % (11.8-14.1); RDW-SD 48.7 fL
[2024-05-20 15:45] LABS: ESR 27 mm/hr (0-20)
[2024-05-20 15:50] LABS: Anion Gap 12.5 mmol/L (3-11); BUN 47 mg/dL (7-18); C-Reactive Protein 1.28 mg/dL (<or=0.5); CO2 27.5 mmol/L (21.0-32.0); CREATININE 1.5 mg/dL (0.70-1.30); Calcium 9.5 mg/dL (8.5-10.1); Chloride 102 mmol/L (98-107); Estimated GFR 46.48 (mL/min/1.73m2); Glucose 101 mg/dL (74-106); Potassium 4.6 mmol/L (3.5-5.1); Sodium 142 mmol/L (136-145)
== END 2024-05-20 16:50 | disposition home or self-care (01) ==
LOC: LBN 16:49
PROVIDERS: PCP Family Medicine; Visit Provider Podiatrist
DX: L97.912 Non-pressure chronic ulcer of unspecified part of right lower leg with fat layer exposed (principal); M86.8X8 Other osteomyelitis, other site; L97.522 Non-pressure chronic ulcer of other part of left foot with fat layer exposed; L97.524 Non-pressure chronic ulcer of other part of left foot with necrosis of bone
CPT/HCPCS: 80048; 85652; 85025; 86140

== ENCOUNTER → 2024-05-25 09:28 | Outpatient (BNVA) | payer MEDICARE, SELFPAY | PROVIDERS: PCP Family Medicine; Referring Provider Family Medicine; Visit Provider Podiatrist | DX: L97.512 Non-pressure chronic ulcer of other part of right foot with fat layer exposed (principal); L97.522 Non-pressure chronic ulcer of other part of left foot with fat layer exposed; I70.203 Unspecified atherosclerosis of native arteries of extremities, bilateral legs; E11.9 Type 2 diabetes mellitus without complications; L03.115 Cellulitis of right lower limb; L03.116 Cellulitis of left lower limb; M86.9 Osteomyelitis, unspecified | CPT/HCPCS: 11042; 29581 ==

== ENCOUNTER → 2024-06-13 08:37 | Outpatient (BNVA) | payer MEDICARE, SELFPAY | PROVIDERS: PCP Family Medicine; Referring Provider Family Medicine; Visit Provider Podiatrist | DX: L03.115 Cellulitis of right lower limb (principal); L03.116 Cellulitis of left lower limb; I83.012 Varicose veins of right lower extremity with ulcer of calf; I83.024 Varicose veins of left lower extremity with ulcer of heel and midfoot; L97.912 Non-pressure chronic ulcer of unspecified part of right lower leg with fat layer exposed; M86.172 Other acute osteomyelitis, left ankle and foot; L97.522 Non-pressure chronic ulcer of other part of left foot with fat layer exposed; I70.203 Unspecified atherosclerosis of native arteries of extremities, bilateral legs | CPT/HCPCS: 11042; 29581 ==

== ENCOUNTER 2024-06-13 11:47 | Outpatient (REF) | payer MEDICARE, SELFPAY | END 2024-06-13 11:48 | disposition home or self-care (01) | LOC: LBN 11:47 | PROVIDERS: PCP Family Medicine; Visit Provider Podiatrist | DX: L97.529 Non-pressure chronic ulcer of other part of left foot with unspecified severity (principal) | CPT/HCPCS: 87070; 87205 ==

== ENCOUNTER 2024-07-01 11:27 | Emergency (ER) | payer MEDICARE, SELFPAY ==
[2024-07-01 11:40] VITALS: BP 91/41; PULSE 74; RESP 16; TEMP 36.5; O2SAT 96
[2024-07-01 13:54] VITALS: BP 127/62; PULSE 65; RESP 18; TEMP 36.8; O2SAT 96
[2024-07-01] MEDS: Clindamycin 300 MG CAP PO (14:16)
[2024-07-01 14:23] VITALS: TEMP 36.8
--- NOTE | 2024-07-01 14:27 | W.ED.GENAD ---
Discharge Plan Disposition Patient Disposition: Home Condition: Stable Discharge Details Clinical Impression: Cellulitis Primary Care Provider: Cameron Mcarthur ED Provider: Ghulam Galvez Home Meds and New Rx's Prescriptions: New clindamycin HCl 300 mg capsule 300 mg PO TID 7 Days Qty: 21 0RF No Action magnesium oxide 400 mg (241.3 mg magnesium) tablet 800 mg PO DAILY insulin glargine [Lantus U-100 Insulin] 100 unit/mL solution 10 unit subcut QHS Patient Comments: pt. took 25 units vitamin B complex [B Complex-Vitamin B12] Tablet 1 tab PO DAILY aspirin 81 mg tablet,delayed release (DR/EC) 81 mg PO DAILY pantoprazole 40 mg tablet,delayed release (DR/EC) 40 mg PO DAILY ketoconazole 2 % cream 1 applic topical DAILY PRN Patient Comments: currently unable to use due to legs being wrapped. Jardiance 25 mg tablet 25 mg PO DAILY fluticasone propionate 50 mcg/actuation spray,suspension 1 spray intranasal DAILY PRN (Reason: nasal congestion) Rx Instructions: administer into each nostril furosemide 40 mg tablet 40 mg PO DAILY lidocaine 5 % ointment 1 applic topical QHS Patient Comments: currently unable to use due to legs being wrapped triamcinolone acetonide 0.1 % ointment 1 applic topical DAILY doxycycline hyclate 100 mg capsule 100 mg PO BID Qty: 28 0RF ciprofloxacin HCl 500 mg tablet 500 mg PO BID Qty: 14 0RF doxazosin [Cardura] 4 mg tablet 4 mg PO QPM penicillin V potassium 500 mg tablet 500 mg PO TID Qty: 273 3RF Rx Instructions: take 1 tablet by mouth three times daily (DME) AFO custom See Rx Instructions .Route .MEDSUPPLY Qty: 1 0RF Rx Instructions: As directed losartan [Cozaar] 100 MG tablet 100 mg PO DAILY insulin lispro [Humalog KwikPen Insulin] 100 unit/mL insulin pen See Rx Instructions subcut .SLIDING SCALE Patient Comments: pt. reports taking 15 units Rx Instructions: subcutaneously SLIDING SCALE; bolus range of 15-25u at 2 meals a day (SQ SLIDING SCALE); ropinirole 2 mg tablet 2 mg PO .nightly ferrous sulfate [FeroSul] 325 mg (65 mg iron) tablet 325 mg PO DAILY Patient Comments: TAKE ONE TABLET BY MOUTH EVERY DAY metformin 500 mg tablet 500 mg PO BID Patient Comments: TAKE ONE TABLET BY MOUTH TWICE A DAY baclofen 5 mg tablet 5 mg PO HS Patient Comments: TAKE ONE TABLET BY MOUTH AT BEDTIME ropinirole 1 mg tablet 1 mg PO TID Rx Instructions: 1mg at noon, 2PM, and 6PM acetaminophen 500 mg tablet 1,000 mg PO TID PRN hydrochlorothiazide 50 MG tablet 50 mg PO DAILY Qty: 0 0RF Patient Comments: patient unsure if he is currently taking carvedilol 25 mg tablet 25 mg PO BID HPI General Date/Time Provider Initiated Documentation: 07/01/24 11:44. HPI Narrative: 79-year-old male history of CKD, diabetes presents with increased redness and discomfort anterior landers left lower extremity, has been on chronic penicillin doxycycline for some time. Denies fevers chills nausea vomiting or systemic signs of illness Related Data Home Medications ?Medication ?Instructions ?Recorded ?Confirmed losartan 100 mg tablet (Cozaar) 100 mg PO DAILY 11/01/13 07/01/24 hydrochlorothiazide 50 mg tablet 50 mg PO DAILY #0 tab-caps 02/20/20 06/13/24 carvedilol 25 mg tablet 25 mg PO BID 01/16/21 07/01/24 doxazosin 4 mg tablet (Cardura) 4 mg PO QPM 02/06/22 07/01/24 magnesium oxide 400 mg (241.3 mg 800 mg PO DAILY 07/21/22 07/01/24 magnesium) tablet vitamin B complex (B 1 tab PO DAILY 09/25/22 07/01/24 Complex-Vitamin B12 tablet) penicillin V potassium 500 mg 500 mg PO TID #273 tabs 12/25/22 07/01/24 tablet insulin lispro 100 unit/mL See Rx Instructions subcut 04/01/23 07/01/24 subcutaneous pen (Humalog KwikPen .SLIDING SCALE (U-100) Insulin) fluticasone propionate 50 1 spray intranasal DAILY PRN nasal 05/28/23 07/01/24 mcg/actuation nasal congestion spray,suspension AFO #1 ea 08/10/23 06/13/24 aspirin 81 mg tablet,delayed 81 mg PO DAILY 09/08/23 07/01/24 release pantoprazole 40 mg tablet,delayed 40 mg PO DAILY 09/23/23 07/01/24 release empagliflozin 25 mg tablet 25 mg PO DAILY 12/25/23 07/01/24 (Jardiance) ketoconazole 2 % topical cream 1 applic topical DAILY PRN 12/25/23 07/01/24 acetaminophen 500 mg tablet 1,000 mg PO TID PRN 02/04/24 07/01/24 baclofen 5 mg tablet 5 mg PO HS 02/04/24 07/01/24 ferrous sulfate 325 mg (65 mg 325 mg PO DAILY 02/04/24 07/01/24 iron) tablet (FeroSul) metformin 500 mg tablet 500 mg PO BID 02/04/24 07/01/24 ropinirole 1 mg tablet 1 mg PO TID 02/04/24 07/01/24 ropinirole 2 mg tablet 2 mg PO .nightly 02/04/24 07/01/24 lidocaine 5 % topical ointment 1 applic topical QHS 04/07/24 07/01/24 triamcinolone acetonide 0.1 % 1 applic topical DAILY 04/07/24 07/01/24 topical ointment furosemide 40 mg tablet 40 mg PO DAILY 04/28/24 07/01/24 insulin glargine 100 unit/mL 10 unit subcut QHS 04/28/24 07/01/24 subcutaneous solution (Lantus U-100 Insulin) doxycycline hyclate 100 mg capsule 100 mg PO BID #28 caps 06/13/24 07/01/24 ciprofloxacin HCl 500 mg tablet 500 mg PO BID #14 tabs 06/21/24 07/01/24 clindamycin HCl 300 mg capsule 300 mg PO TID 7 days #21 caps 07/01/24 Previous Rx's ?Medication ?Instructions ?Recorded hydrochlorothiazide 50 mg tablet 50 mg PO DAILY #0 tab-caps 02/20/20 penicillin V potassium 500 mg 500 mg PO TID #273 tabs 12/25/22 tablet AFO #1 ea 08/10/23 doxycycline hyclate 100 mg capsule 100 mg PO BID #28 caps 06/13/24 ciprofloxacin HCl 500 mg tablet 500 mg PO BID #14 tabs 06/21/24 clindamycin HCl 300 mg capsule 300 mg PO TID 7 days #21 caps 07/01/24 Allergies Allergy/AdvReac Type Severity Reaction Status Date / Time amlodipine besylate (From AdvReac Mild edema Verified 07/01/24 11:43 Norvasc) enalapril maleate (From AdvReac Mild cough Verified 07/01/24 11:43 Vasotec) enalaprilat dihydrate (From AdvReac Mild cough Verified 07/01/24 11:43 Vasotec) pravastatin sodium (From AdvReac Mild myalgia Verified 07/01/24 11:43 Pravachol) from Lipitor rosuvastatin (From Crestor) AdvReac Mild Myalgia Verified 07/01/24 11:43 General Stated Complaint: Cellulitis TONG: 3 Exam Narrative Exam Narrative: Rest comfortably no acute distress Alert oriented interactive Speaking full sentences no respiratory distress Left lower extremity: Erythema warmth and induration anterior landers, shallow-based ulcer approximately 3 cm diameter, no purulence crepitus bulla or fluctuance noted, warm well-perfused soft compartments, sensate warm distal extremity full range of motion Course Vital Signs Vital signs: Vital Signs Temperature 36.5 C 07/01/24 11:40 Pulse 74 07/01/24 11:40 Respiratory Rate 16 07/01/24 11:40 Blood Pressure 91/41 L 07/01/24 11:40 Pulse Oximetry 96 07/01/24 11:40 Temperature 36.8 C 07/01/24 13:54 Temperature Source Oral 07/01/24 13:54 Pulse 65 07/01/24 13:54 Respiratory Rate 18 07/01/24 13:54 Blood Pressure 127/62 07/01/24 13:54 Blood Pressure Mean 83 07/01/24 13:54 Blood Pressure Position Sitting 07/01/24 13:54 Pulse Oximetry 96 07/01/24 13:54 Oxygen Delivery Method Room Air 07/01/24 13:54 Oxygen Flow Rate 0 07/01/24 13:54 Pain Level 0 07/01/24 13:54 Medical Decision Making 79-year-old male history of CKD, diabetes presents for wound check left lower extremity, evidence of possible early cellulitis anterior landers, overlying area of chronic venous stasis changes, shallow-based ulcer, no fluctuance crepitus or purulence no lymphangitic streaking, no systemic signs of illness. Will transition patient to clindamycin. Patient has close follow-up with wound care next week. Low suspicion for myositis necrotizing fasciitis osteomyelitis or acute arterial occlusion. Home care instructions and return precautions given Quality:[facility] Health Related Social Needs: Health related social needs inadequate housing Health related social needs details [place] PFS All Active Problems (Updated 07/01/24 @ 14:39 by Ghulam Galvez MD) Cellulitis (Acute) Ulcer of right lower extremity with fat layer exposed (Acute) Blister of right leg (Acute) Ulcer of left foot with necrosis of bone (Acute) CKD (chronic kidney disease), stage III (Acute) Transaminitis (Acute) Elevated CPK (Acute) Atherosclerosis of left lower extremity with ulceration (Acute) Diabetic foot infection (Acute) Atherosclerosis of artery of both lower extremities (Acute) Ulcer of left foot with fat layer exposed (Acute) Osteomyelitis of left foot (Chronic) Restless leg syndrome (Acute) DVT (deep venous thrombosis) (Chronic) Venous ulcer-leg syndrome, bilateral (Acute) Onychogryphosis (Acute) Venous insufficiency of both lower extremities (Acute) Ulcer of right foot with fat layer exposed (Acute) Controlled type 2 diabetes mellitus with ulcer of toe (Acute) Atherosclerosis of [place] arteries of right leg with ulceration of ankle (Acute) Impacted cerumen, bilateral (Acute) Ulcer of extremity due to chronic venous insufficiency (Acute) Pneumonia (Acute) Nail dystrophy (Acute) Lumbar stenosis (Acute) Carpal tunnel syndrome of left wrist (Acute) Bilateral hand numbness (Acute) Foot drop, bilateral (Acute) Left sided sciatica (Acute) Impairment of speech discrimination (Acute) Asymmetrical sensorineural hearing loss (Acute) Onychomycosis (Acute) DVT prophylaxis (Acute) Sepsis (Acute) Infection of total right knee replacement (Acute) S/p irrigation and debridement; poly exchange; arthrotomy repair DOS: 10/04/2021 Advance care planning (Acute) Bacteremia (Acute) Asymmetrical sensorineural hearing loss (Acute) History of total right knee replacement (Acute 01/16/21) First degree heart block (Acute) Cellulitis (Acute) History of total left knee replacement (TKR) (Acute 12/14/19) Dr. Wilson s/p debridement and poly exchange 02/10/20 Hypertension (Chronic) Tubular adenoma of colon (Acute 09/02/16) Tubulovillous adenoma polyp of colon (Chronic) Noted by colonoscopy. Chest pain, rule out acute myocardial infarction (Acute 11/01/13) Abnormal LFTs (Chronic) Secondary to fartty infiltrate of the liver. Diabetic renal disease (Chronic) Benign hypertension (Chronic) Obesity (Chronic) Benign prostatic hyperplasia (Chronic) Obstructive sleep apnea syndrome (Chronic) Nocturnal CPAP Hyperlipidemia (Chronic) Diabetes mellitus type 2 (Chronic) Since approximately 1997. On insulin thereapy. Last hemoglobin A1c 6.5% March 2013. 11-01-2013: Most recent hemoglobin A1c was 6.6 ? date. Medical History Constipation Diabetic neuropathy Renal insufficiency Low blood magnesium (11/01/13) Paresthesias Fatty infiltration of liver Erectile dysfunction Foot drop Unsteady gait History of removal of joint prosthesis of right knee due to infection Microalbuminuria Diabetic polyneuropathy Morbid obesity Sleep apnea BPH (benign prostatic hyperplasia) Myalgia Perennial allergic rhinitis Vertigo Palliative care patient Hearing loss Chronic lower back pain Osteoarthritis Venous insufficiency Sleep apnea with use of continuous positive airway pressure (CPAP) History of seizures as a child Hx of myocardial infarction 10/2011 STRESS TEST COMPLETED 11/29/2019 Hyperlipidemia CAD (coronary artery disease) Cellulitis RIGHT LOWER LEG Diabetes Arthritis Surgical History History of total left hip arthroplasty (07/29/23) Carpal tunnel syndrome of right wrist S/P ECTR: 10/28/2022 H/O total knee replacement left knee 12/14/2019, right knee 01/16/2021 History of tonsillectomy and adenoidectomy H/O heart artery stent X2 2014 colonoscopy (09/02/16) Family History Maternal Aunt Colon cancer Maternal Aunt Colon cancer Father , 70s Heart disease Mother Lung cancer Brother Liver failure Son , tractor accident Accident caused by farm tractor Social History Smoking/Tobacco Use Status: Never Smoking risk assessment performed?: Yes Alcohol Intake: never Drug use: Never Substance use type: does not use Housing: house Do you feel safe at home: Yes Do you feel safe in your relationship?: Yes Additional Social history: unable to assess to privately
--- NOTE | 2024-07-01 14:41 | NUR.NOTE ---
Nursing Note: patient has 1 wound on left landers and 1 wound on heel of left foot. This RN cleaned and dressed wound, instructed to call [facility] to change dressing Sat or Sun before appointment with podiatry on Thursday also to keep dressing clean and dry. Patient and family both verbalized they understood DC teachings
== END 2024-07-01 15:04 | disposition home or self-care (01) ==
PROVIDERS: Emergency Provider Emergency Medicine; PCP Family Medicine
DX: L03.116 Cellulitis of left lower limb (principal); I12.9 Hypertensive chronic kidney disease with stage 1 through stage 4 chronic kidney disease, or unspecified chronic kidney disease; E11.22 Type 2 diabetes mellitus with diabetic chronic kidney disease; N18.30 Chronic kidney disease, stage 3 unspecified; I25.10 Atherosclerotic heart disease of native coronary artery without angina pectoris; I25.2 Old myocardial infarction; Z79.4 Long term (current) use of insulin; Z79.84 Long term (current) use of oral hypoglycemic drugs; Z79.82 Long term (current) use of aspirin; Z95.5 Presence of coronary angioplasty implant and graft
CPT/HCPCS: 99283

== ENCOUNTER → 2024-07-04 12:01 | Outpatient (BNVA) | payer MEDICARE, SELFPAY | PROVIDERS: PCP Family Medicine; Visit Provider Psychiatry & Neurology Neurology | DX: R26.81 Unsteadiness on feet (principal); M54.32 Sciatica, left side; M21.371 Foot drop, right foot; M21.372 Foot drop, left foot; L03.116 Cellulitis of left lower limb; G25.81 Restless legs syndrome; G89.29 Other chronic pain | CPT/HCPCS: 99214 ==

== ENCOUNTER → 2024-07-05 10:57 | Outpatient (BNVA) | payer MEDICARE, SELFPAY | PROVIDERS: PCP Family Medicine; Referring Provider Family Medicine; Visit Provider Podiatrist | DX: I83.019 Varicose veins of right lower extremity with ulcer of unspecified site (principal); I83.029 Varicose veins of left lower extremity with ulcer of unspecified site; L97.522 Non-pressure chronic ulcer of other part of left foot with fat layer exposed; E11.9 Type 2 diabetes mellitus without complications; L97.912 Non-pressure chronic ulcer of unspecified part of right lower leg with fat layer exposed; M86.9 Osteomyelitis, unspecified; I70.203 Unspecified atherosclerosis of native arteries of extremities, bilateral legs; L03.116 Cellulitis of left lower limb | CPT/HCPCS: 11042 ==

== ENCOUNTER → 2024-07-05 15:39 | Outpatient (CLI) | payer MEDICARE, SELFPAY ==
--- NOTE | 2024-07-05 14:22 | DI.RAD_ITS ---
Exam(s) XR FOOT LT COMPLETE EXAM: XR FOOT LT COMPLETE CLINICAL HISTORY: M86.9,L97.912,L03.90 osteomyelitis,cellulitis, non pressure chornic ulcer. TECHNIQUE: 2D digital imaging was performed. Three views. COMPARISON: No exams were available for comparison FINDINGS: BONES: No acute fracture is present. Old fracture base of 5th metatarsal. Gauze overlies the proxim al portion of the 5th metatarsal. There is chronic appearing deformity of the 5th metatarsal. No ac jovany appearing erosions. Plantar calcaneal spur. JOINTS: Stable appearance of abnormal line min at the bases of the 4th and 5th metatarsal with the cu boid. SOFT TISSUE: Soft tissue swelling and overlying gauze. IMPRESSION: Old 5th metatarsal fracture. Chronic deformity at the base of the 5th metatarsal. DATA REPOSITORY: RADIATION DOSE DELIVERED:
[2024-07-05 14:39] LABS: ESR 12 mm/hr (0-20)
[2024-07-05 14:40] LABS: Abs Immature Grans 0.03 10^3/uL (0.0-0.06); Absolute Basophil Count 0.04 10^3/uL (0.0-0.2); Absolute Eosinophil Count 0.18 10^3/uL (0.0-0.7); Absolute Lymphocyte Count 0.56 10^3/uL (1.2-3.4); Absolute Monocyte Count 0.44 10^3/uL (0.1-0.8); Basophils % 0.6 %; Eosinophils % 2.8 %; HCT 44.8 % (40.0-50.0); HGB 14.3 g/dL (13.5-17.5); Immature Grans % 0.5 %; Lymphocytes % 8.7 %; MCH 25.5 pg (27.0-33.0); MCHC 31.9 % (32.0-36.0); MCV 80 fL (80-95); MPV 9.6 fL (8.0-11.0); Monocytes % 6.8 %; Neutrophils % 80.6 %; Platelet Count 177 10^3/uL (130-400); RBC 5.61 10^6/uL (4.36-5.78); RDW 17.8 % (11.8-14.1); RDW-SD 50.5 fL; WBC 6.45 10^3/uL (4.4-10.8)
[2024-07-05 15:00] LABS: C-Reactive Protein 7.24 mg/dL (<or=0.5); CREATININE 1.8 mg/dL (0.70-1.30); Estimated GFR 37.35 (mL/min/1.73m2)
== END ==
PROVIDERS: PCP Family Medicine; Visit Provider Podiatrist
DX: L03.90 Cellulitis, unspecified (principal); L97.912 Non-pressure chronic ulcer of unspecified part of right lower leg with fat layer exposed; M86.9 Osteomyelitis, unspecified; I73.9 Peripheral vascular disease, unspecified; S92.351A Displaced fracture of fifth metatarsal bone, right foot, initial encounter for closed fracture; Z09 Encounter for follow-up examination after completed treatment for conditions other than malignant neoplasm; I83.019 Varicose veins of right lower extremity with ulcer of unspecified site; I83.029 Varicose veins of left lower extremity with ulcer of unspecified site; L97.929 Non-pressure chronic ulcer of unspecified part of left lower leg with unspecified severity; L97.919 Non-pressure chronic ulcer of unspecified part of right lower leg with unspecified severity; E11.9 Type 2 diabetes mellitus without complications; S80.821A Blister (nonthermal), right lower leg, initial encounter; L97.522 Non-pressure chronic ulcer of other part of left foot with fat layer exposed
CPT/HCPCS: 36415; 85652; 73630; 82565; 85025; 86140

== ENCOUNTER → 2024-07-20 09:53 | Outpatient (BNVA) | payer MEDICARE, SELFPAY | PROVIDERS: PCP Family Medicine; Referring Provider Family Medicine; Visit Provider Podiatrist | DX: L03.115 Cellulitis of right lower limb (principal); L03.116 Cellulitis of left lower limb; I83.019 Varicose veins of right lower extremity with ulcer of unspecified site; I83.029 Varicose veins of left lower extremity with ulcer of unspecified site; E11.9 Type 2 diabetes mellitus without complications; S80.821A Blister (nonthermal), right lower leg, initial encounter; L97.912 Non-pressure chronic ulcer of unspecified part of right lower leg with fat layer exposed; L97.522 Non-pressure chronic ulcer of other part of left foot with fat layer exposed; I70.203 Unspecified atherosclerosis of native arteries of extremities, bilateral legs | CPT/HCPCS: 11042 ==

== ENCOUNTER 2024-07-29 11:02 | Outpatient (CLI) | payer MEDICARE, SELFPAY ==
--- NOTE | 2024-07-29 10:15 | DI.RAD_ITS ---
Exam(s) XR HIP LT AP LAT ONLY EXAM: XR HIP LT AP LAT ONLY CLINICAL HISTORY: annual f/u L DWAYNE. TECHNIQUE: 2D digital imaging was performed. COMPARISON: CR XR HIP LT COMPLETE AP PELVIS from 08/14/2023 FINDINGS: Two views Stable position alignment of the components of the left hip prosthesis. No fracture or loosening trevor dent. IMPRESSION: Stable satisfactory appearance DATA REPOSITORY: RADIATION DOSE DELIVERED:
== END 2024-07-29 11:03 | disposition home or self-care (01) ==
LOC: DIORS 11:03
PROVIDERS: PCP Family Medicine; Referring Provider Family Medicine; Visit Provider Physician Assistant
DX: Z96.642 Presence of left artificial hip joint (principal); Z47.1 Aftercare following joint replacement surgery
CPT/HCPCS: 99213; 73502

== ENCOUNTER → 2024-08-10 13:53 | Outpatient (BNVA) | payer MEDICARE, SELFPAY | PROVIDERS: PCP Family Medicine; Referring Provider Family Medicine; Visit Provider Podiatrist | DX: I83.019 Varicose veins of right lower extremity with ulcer of unspecified site (principal); I83.029 Varicose veins of left lower extremity with ulcer of unspecified site; E11.9 Type 2 diabetes mellitus without complications; L97.912 Non-pressure chronic ulcer of unspecified part of right lower leg with fat layer exposed; I70.203 Unspecified atherosclerosis of native arteries of extremities, bilateral legs; M86.8X7 Other osteomyelitis, ankle and foot; L03.116 Cellulitis of left lower limb; L03.115 Cellulitis of right lower limb; L97.522 Non-pressure chronic ulcer of other part of left foot with fat layer exposed | CPT/HCPCS: 11042 ==

== ENCOUNTER 2024-08-18 01:25 | Outpatient (CLI) | payer MEDICARE, SELFPAY ==
--- NOTE | 2024-08-18 | DI.MRI_ITS ---
Exam(s) MR LOWER EXTREMITY LT WO EXAM: MR LOWER EXTREMITY LT WO CLINICAL HISTORY: TYPE 2 DIABETES W/ATHEROSCLEROSIS OF ARTERIES OF EXTREMITIES E11.51 I70.209 TECHNIQUE: Multiplanar multisequence MRI was performed. COMPARISON: MR MR LOWER EXTREMITY LT WO/W from 02/03/2024 CR XR FOOT LT COMPLETE from 05/19/2024 CR XR FOOT LT COMPLETE from 07/05/2024 FINDINGS: There is again noted susceptibility artifact the lateral aspect of the foot adjacent to the outer asp ect of the cuboid bone. This is related to a thin metallic foreign body at this level as seen on rece nt plain films. This has the appearance of metallic pin in the soft tissues. SOFT TISSUES: There is an ulcer on the lateral aspect of the foot adjacent to the 5th metatarsal. MARROW:There is is again noted confluent hypointense marrow signal in the proximal 2/3 of the 5th met atarsal and corresponding stir bright signal consistent with osteomyelitis. There also appears to be fragmentation at the base of the 5th metatarsal. The head of the 5th metatarsal exhibits normal signa l as do the phalanges of the 5th toe. There is abnormal signal also evident in the 4th metatarsal and diaphysis of the 4th metatarsal again evident which is also suspicious for osteomyelitis. There is a degenerative subarticular cyst in the base of the 4th metatarsal noted which has not been eroded as of yet. There is no evidence of osteomyelitis in the sub adjacent cuboid bone. Findings in the 3rd metacarpal are not convincing for osteomyelitis. First and 2nd metatarsals appear unremarkable as do the cuneif orm bones and navicular. MUSCLES: Diffuse edema signal again noted in the musculature of the foot. EXTRAMUSCULAR SOFT TISSUES: The previously described fluid collections around the 5th metatarsal are less evident on the present study. IMPRESSION: 1. Findings are again consistent with osteomyelitis of the 5th metatarsal with further progression as there is also now some fragmentation of the proximal aspect of the 5th metatarsal. Signal abnormalit y in the 4th metatarsal is relatively stable when compared to the prior MRI study of January 2024 but i s still somewhat suspicious for osteomyelitis. Adjacent cuboid bone exhibits no evidence of osteomyel itis 2. There is again noted susceptibility artifact in the soft tissues adjacent to the cuboid bone. This is related to a small metallic foreign body pin in the soft tissues lateral to the cuboid, as seen o n prior x-rays. 3. The previously described fluid collections in the lateral aspect of the foot have decreased. No ne w distinct fluid collections evident. DATA REPOSITORY:
== END 2024-08-18 01:45 ==
LOC: DI 01:25
PROVIDERS: PCP Family Medicine; Visit Provider Surgery Vascular Surgery
DX: E11.51 Type 2 diabetes mellitus with diabetic peripheral angiopathy without gangrene (principal); I70.209 Unspecified atherosclerosis of native arteries of extremities, unspecified extremity; E11.621 Type 2 diabetes mellitus with foot ulcer; L97.509 Non-pressure chronic ulcer of other part of unspecified foot with unspecified severity; Z79.4 Long term (current) use of insulin; M86.172 Other acute osteomyelitis, left ankle and foot
CPT/HCPCS: 73718

== ENCOUNTER 2024-09-20 15:27 | Emergency (ER) | payer MEDICARE, SELFPAY ==
[2024-09-20 15:27] VITALS: BP 86/58; PULSE 66; RESP 18; TEMP 36.6; O2SAT 97
--- NOTE | 2024-09-20 15:30 | RT.EKG_ITS ---
APPROVED REPORT Exam: Resting ECG Reason for Exam: [facility] Patient Location: E HR:49 bpm ECG Measurements Heart Rate 49 AXIS NC [id number] P [id number] QRSd 94 QRS -10 QT 413 T 17 QTc 373 Conclusion Atrial fibrillation 49 NO STEMI
[2024-09-20 15:44] VITALS: BP 86/48; PULSE 80; RESP 20; TEMP 37; O2SAT 94
--- NOTE | 2024-09-20 18:42 | ED.GENADUL_ITS ---
Discharge Plan Disposition Patient Disposition: Transfer-Acute Inpatient Care Specific Acute Inpt Facility: [facility] Condition: Stable Discharge Details Chief Complaint: GenMedical Clinical Impression: Acute renal failure (ARF) Primary Care Provider: Cameron Mcarthur ED Provider: Malachi Thorpe Home Meds and New Rx's Prescriptions: No Action magnesium oxide 400 mg (241.3 mg magnesium) tablet 800 mg PO DAILY insulin glargine [Lantus U-100 Insulin] 100 unit/mL solution 20 unit subcut QHS vitamin B complex [B Complex-Vitamin B12] Tablet 1 tab PO DAILY aspirin 81 mg tablet,delayed release (DR/EC) 81 mg PO DAILY pantoprazole 40 mg tablet,delayed release (DR/EC) 40 mg PO DAILY ketoconazole 2 % cream 1 applic topical DAILY PRN Patient Comments: currently unable to use due to legs being wrapped. Jardiance 25 mg tablet 25 mg PO DAILY gabapentin 300 mg capsule 300 mg PO TID Qty: 90 3RF gentamicin 0.1 % cream 1 applic topical QID Qty: 30 0RF fluticasone propionate 50 mcg/actuation spray,suspension 1 spray intranasal DAILY PRN (Reason: nasal congestion) Rx Instructions: administer into each nostril furosemide 40 mg tablet 40 mg PO DAILY lidocaine 5 % ointment 1 applic topical QHS Patient Comments: currently unable to use due to legs being wrapped triamcinolone acetonide 0.1 % ointment 1 applic topical DAILY doxazosin [Cardura] 4 mg tablet 4 mg PO QPM penicillin V potassium 500 mg tablet 500 mg PO TID Qty: 273 3RF Rx Instructions: take 1 tablet by mouth three times daily (DME) AFO custom See Rx Instructions .Route .MEDSUPPLY Qty: 1 0RF Rx Instructions: As directed losartan [Cozaar] 100 MG tablet 100 mg PO DAILY insulin lispro [Humalog KwikPen Insulin] 100 unit/mL insulin pen See Rx Instructions subcut .SLIDING SCALE Patient Comments: pt. reports taking 15 units Rx Instructions: subcutaneously SLIDING SCALE; bolus range of 15-25u at 2 meals a day (SQ SLIDING SCALE); ropinirole 2 mg tablet 2 mg PO .nightly ferrous sulfate [FeroSul] 325 mg (65 mg iron) tablet 325 mg PO DAILY Patient Comments: TAKE ONE TABLET BY MOUTH EVERY DAY metformin 500 mg tablet 500 mg PO BID Patient Comments: TAKE ONE TABLET BY MOUTH TWICE A DAY baclofen 5 mg tablet 5 mg PO HS Patient Comments: TAKE ONE TABLET BY MOUTH AT BEDTIME ropinirole 1 mg tablet 1 mg PO TID Rx Instructions: 1mg at noon, 2PM, and 6PM acetaminophen 500 mg tablet 1,000 mg PO TID PRN hydrochlorothiazide 50 MG tablet 50 mg PO DAILY Qty: 0 0RF Patient Comments: on residential list carvedilol 25 mg tablet 25 mg PO BID pregabalin 200 mg capsule 200 mg PO HS Patient Comments: TAKE ONE CAPSULE BY MOUTH EVERY DAY AT BEDTIME polyethylene glycol 3350 [ClearLax] 17 gram/dose powder 17 g PO DAILY PRN naproxen [EC-Naprosyn] 375 mg tablet,delayed release (DR/EC) 375 mg PO Q12H PRN vancomycin 10 gram recon soln 1.25 g IV DAILY HPI General Date/Time Provider Initiated Documentation: 09/20/24 15:34 . Limitations to Documentation: no limitations . Information obtained by: patient, RN/MD and old records reviewed . HPI Narrative: 79-year-old gentleman with multiple medical comorbidities including CKD, diabetes, recent admission for amputation osteomyelitis with prolonged infection and IV antibiotic course. [facility] from [facility] with abnormal lab work. Lab work obtained today was concerning for an elevated vancomycin trough with new signs of acute renal failure. The infectious disease doctors that are monitoring his vancomycin requested that the patient come to the [facility], but [facility] rehab sent him here. He reports that he felt like he was getting better and has no complaints at this time Related Data Home Medications ?Medication ?Instructions ?Recorded ?Confirmed losartan 100 mg tablet (Cozaar) 100 mg PO DAILY 11/01/13 09/20/24 hydrochlorothiazide 50 mg tablet 50 mg PO DAILY #0 tab-caps 02/20/20 09/20/24 carvedilol 25 mg tablet 25 mg PO BID 01/16/21 09/20/24 doxazosin 4 mg tablet (Cardura) 4 mg PO QPM 02/06/22 09/20/24 magnesium oxide 400 mg (241.3 mg 800 mg PO DAILY 07/21/22 09/20/24 magnesium) tablet vitamin B complex (B 1 tab PO DAILY 09/25/22 09/20/24 Complex-Vitamin B12 tablet) penicillin V potassium 500 mg 500 mg PO TID #273 tabs 12/25/22 09/20/24 tablet insulin lispro 100 unit/mL See Rx Instructions subcut 04/01/23 09/20/24 subcutaneous pen (Humalog KwikPen .SLIDING SCALE (U-100) Insulin) fluticasone propionate 50 1 spray intranasal DAILY PRN nasal 05/28/23 09/20/24 mcg/actuation nasal congestion spray,suspension AFO #1 ea 08/10/23 09/20/24 aspirin 81 mg tablet,delayed 81 mg PO DAILY 09/08/23 09/20/24 release pantoprazole 40 mg tablet,delayed 40 mg PO DAILY 09/23/23 09/20/24 release empagliflozin 25 mg tablet 25 mg PO DAILY 12/25/23 09/20/24 (Jardiance) ketoconazole 2 % topical cream 1 applic topical DAILY PRN 12/25/23 09/20/24 acetaminophen 500 mg tablet 1,000 mg PO TID PRN 02/04/24 09/20/24 baclofen 5 mg tablet 5 mg PO HS 02/04/24 09/20/24 ferrous sulfate 325 mg (65 mg 325 mg PO DAILY 02/04/24 09/20/24 iron) tablet (FeroSul) metformin 500 mg tablet 500 mg PO BID 02/04/24 09/20/24 ropinirole 1 mg tablet 1 mg PO TID 02/04/24 09/20/24 ropinirole 2 mg tablet 2 mg PO .nightly 02/04/24 09/20/24 lidocaine 5 % topical ointment 1 applic topical QHS 04/07/24 09/20/24 triamcinolone acetonide 0.1 % 1 applic topical DAILY 04/07/24 09/20/24 topical ointment furosemide 40 mg tablet 40 mg PO DAILY 04/28/24 09/20/24 insulin glargine 100 unit/mL 20 unit subcut QHS 04/28/24 09/20/24 subcutaneous solution (Lantus U-100 Insulin) gabapentin 300 mg capsule 300 mg PO TID #90 caps 07/04/24 09/20/24 gentamicin 0.1 % topical cream 1 applic topical QID #30 grams 07/20/24 09/20/24 naproxen 375 mg tablet,delayed 375 mg PO Q12H PRN 09/20/24 09/20/24 release (EC-Naprosyn) polyethylene glycol 3350 17 17 g PO DAILY PRN 09/20/24 09/20/24 gram/dose oral powder (ClearLax) pregabalin 200 mg capsule 200 mg PO HS 09/20/24 09/20/24 vancomycin 10 gram intravenous 1.25 g IV DAILY 09/20/24 09/20/24 solution Previous Rx's ?Medication ?Instructions ?Recorded hydrochlorothiazide 50 mg tablet 50 mg PO DAILY #0 tab-caps 02/20/20 penicillin V potassium 500 mg 500 mg PO TID #273 tabs 12/25/22 tablet AFO #1 ea 08/10/23 gabapentin 300 mg capsule 300 mg PO TID #90 caps 07/04/24 gentamicin 0.1 % topical cream 1 applic topical QID #30 grams 07/20/24 Allergies Allergy/AdvReac Type Severity Reaction Status Date / Time amlodipine besylate (From AdvReac Mild edema Verified 09/20/24 15:35 Norvasc) enalapril maleate (From AdvReac Mild cough Verified 09/20/24 15:35 Vasotec) enalaprilat dihydrate (From AdvReac Mild cough Verified 09/20/24 15:35 Vasotec) pravastatin sodium (From AdvReac Mild myalgia Verified 09/20/24 15:35 Pravachol) from Lipitor rosuvastatin (From Crestor) AdvReac Mild Myalgia Verified 09/20/24 15:35 General Stated Complaint: GenMedical TONG: 3 Exam Narrative Exam Narrative: Review of Systems: All systems reviewed & are unremarkable except as noted in HPI and below Well-developed, chronically ill-appearing NCAT RRR Unlabored respiratory effort Nondistended abdomen soft nontender Left foot with surgical wound bed, wound VAC intact, mild surrounding erythema, no tenderness to palpation Midline access in the left upper extremity Course Vital Signs Vital signs: Vital Signs Temperature 36.6 C 09/20/24 15:27 Pulse 66 09/20/24 15:27 Respiratory Rate 18 09/20/24 15:27 Blood Pressure 86/58 L 09/20/24 15:27 Pulse Oximetry 97 09/20/24 15:27 Temperature 37.0 C 09/20/24 15:44 Temperature Source Oral 09/20/24 15:27 Pulse 80 09/20/24 15:44 Respiratory Rate 20 09/20/24 15:44 Respiratory Effort Normal 09/20/24 15:44 Respiratory Depth Normal 09/20/24 15:44 Respiratory Pattern Normal 09/20/24 15:44 Blood Pressure 86/48 L 09/20/24 15:44 Blood Pressure Position Sitting 09/20/24 15:27 Pulse Oximetry 94 09/20/24 15:44 Oxygen Delivery Method Room Air 09/20/24 15:27 Oxygen Flow Rate 0 09/20/24 15:27 Pain Level 0 09/20/24 15:44 Comment pt states his BP has been running low 09/20/24 15:27 Medical Decision Making Emergent evaluation of acute renal failure. I reviewed the lab work obtained earlier today and noted significant changes in the patient's renal function including an elevated creatinine and a significantly elevated BUN. At this time the patient is not have EKG changes or hyperkalemia concerning for need for emergent dialysis. His vancomycin trough is also elevated I suspect that his renal dysfunction is secondary to the elevated vancomycin. I discussed with the vascular surgeon that recently have the patient admitted to their service at [facility]. Unfortunately his cultures were only susceptible to vancomycin. Given the complicated nature of this patient, they have accepted the patient to [facility] for admission and further management. He will be transferred there when bed is available. Excepted by Dr. Sosa. Quality:SDOH Health Related Social Needs: Health related social needs inadequate housing(Z59.1) Health related social needs details old farm house [facility] All Active Problems (Updated 09/20/24 @ 18:45 by Malachi Thorpe MD) Acute renal failure (ARF) (Acute) Ulcer of right lower extremity with fat layer exposed (Acute) Blister of right leg (Acute) Ulcer of left foot with necrosis of bone (Acute) CKD (chronic kidney disease), stage III (Acute) Transaminitis (Acute) Elevated CPK (Acute) Atherosclerosis of left lower extremity with ulceration (Acute) Diabetic foot infection (Acute) Atherosclerosis of artery of both lower extremities (Acute) Ulcer of left foot with fat layer exposed (Acute) Osteomyelitis of left foot (Chronic) Restless leg syndrome (Acute) DVT (deep venous thrombosis) (Chronic) Venous ulcer-leg syndrome, bilateral (Acute) Onychogryphosis (Acute) Venous insufficiency of both lower extremities (Acute) Ulcer of right foot with fat layer exposed (Acute) Controlled type 2 diabetes mellitus with ulcer of toe (Acute) Atherosclerosis of [place] arteries of right leg with ulceration of ankle (Acute) Impacted cerumen, bilateral (Acute) Ulcer of extremity due to chronic venous insufficiency (Acute) Pneumonia (Acute) Nail dystrophy (Acute) Lumbar stenosis (Acute) Carpal tunnel syndrome of left wrist (Acute) Bilateral hand numbness (Acute) Foot drop, bilateral (Acute) Left sided sciatica (Acute) Impairment of speech discrimination (Acute) Asymmetrical sensorineural hearing loss (Acute) Onychomycosis (Acute) DVT prophylaxis (Acute) Sepsis (Acute) Infection of total right knee replacement (Acute) S/p irrigation and debridement; poly exchange; arthrotomy repair DOS: 10/04/2021 Advance care planning (Acute) Bacteremia (Acute) Asymmetrical sensorineural hearing loss (Acute) History of total right knee replacement (Acute 01/16/21) First degree heart block (Acute) Cellulitis (Acute) History of total left knee replacement (TKR) (Acute 12/14/19) Dr. Wilson s/p debridement and poly exchange 02/10/20 Hypertension (Chronic) Tubular adenoma of colon (Acute 09/02/16) Tubulovillous adenoma polyp of colon (Chronic) Noted by colonoscopy. Chest pain, rule out acute myocardial infarction (Acute 11/01/13) Abnormal LFTs (Chronic) Secondary to fartty infiltrate of the liver. Diabetic renal disease (Chronic) Benign hypertension (Chronic) Obesity (Chronic) Benign prostatic hyperplasia (Chronic) Obstructive sleep apnea syndrome (Chronic) Nocturnal CPAP Hyperlipidemia (Chronic) Diabetes mellitus type 2 (Chronic) Since approximately 1997. On insulin thereapy. Last hemoglobin A1c 6.5% March 2013. 11-01-2013: Most recent hemoglobin A1c was 6.6 ? date. Medical History Constipation Diabetic neuropathy Renal insufficiency Low blood magnesium (11/01/13) Paresthesias Fatty infiltration of liver Erectile dysfunction Foot drop Unsteady gait History of removal of joint prosthesis of right knee due to infection Microalbuminuria Diabetic polyneuropathy Morbid obesity Sleep apnea BPH (benign prostatic hyperplasia) Myalgia Perennial allergic rhinitis Vertigo Palliative care patient Hearing loss Chronic lower back pain Osteoarthritis Venous insufficiency Sleep apnea with use of continuous positive airway pressure (CPAP) History of seizures as a child Hx of myocardial infarction 10/2011 STRESS TEST COMPLETED 11/29/2019 Hyperlipidemia CAD (coronary artery disease) Cellulitis RIGHT LOWER LEG Diabetes Arthritis Surgical History History of total left hip arthroplasty (07/29/23) Carpal tunnel syndrome of right wrist S/P ECTR: 10/28/2022 H/O total knee replacement left knee 12/14/2019, right knee 01/16/2021 History of tonsillectomy and adenoidectomy H/O heart artery stent X2 2013 colonoscopy (09/02/16) Family History Maternal Aunt Colon cancer Maternal Aunt Colon cancer Father , 70s Heart disease Mother Lung cancer Brother Liver failure Son , tractor accident Accident caused by farm tractor Social History Smoking/Tobacco Use Status: Never Smoking risk assessment performed?: Yes Alcohol Intake: never Drug use: Never Substance use type: does not use Housing: house Do you feel safe at home: Yes Do you feel safe in your relationship?: Yes Additional Social history: unable to assess to privately
== END 2024-09-20 19:24 | disposition short-term general hospital (02) ==
PROVIDERS: Emergency Provider Emergency Medicine; PCP Family Medicine
DX: N17.9 Acute kidney failure, unspecified (principal); E11.40 Type 2 diabetes mellitus with diabetic neuropathy, unspecified; E11.22 Type 2 diabetes mellitus with diabetic chronic kidney disease; I12.9 Hypertensive chronic kidney disease with stage 1 through stage 4 chronic kidney disease, or unspecified chronic kidney disease; N18.30 Chronic kidney disease, stage 3 unspecified; I25.10 Atherosclerotic heart disease of native coronary artery without angina pectoris; I25.2 Old myocardial infarction; E78.5 Hyperlipidemia, unspecified; I48.91 Unspecified atrial fibrillation; Z79.4 Long term (current) use of insulin; Z79.84 Long term (current) use of oral hypoglycemic drugs; Z79.82 Long term (current) use of aspirin; Z95.5 Presence of coronary angioplasty implant and graft
CPT/HCPCS: 93005; 99285; 93010

== ENCOUNTER 2024-09-20 17:58 | Outpatient (REF) | payer MEDICARE, SELFPAY ==
[2024-09-20 10:11] LABS: Abs Immature Grans 0.04 10^3/uL (0.0-0.06); Absolute Basophil Count 0.04 10^3/uL (0.0-0.2); Absolute Eosinophil Count 0.26 10^3/uL (0.0-0.7); Absolute Lymphocyte Count 0.36 10^3/uL (1.2-3.4); Absolute Monocyte Count 0.47 10^3/uL (0.1-0.8); Absolute Neutrophil Count 5.04 10^3/uL (1.2-6.7); Basophils % 0.6 %; Eosinophils % 4.2 %; HCT 31.1 % (40.0-50.0); Immature Grans % 0.6 %; Lymphocytes % 5.8 %; MCH 28.2 pg (27.0-33.0); MCHC 32.2 % (32.0-36.0); MCV 88 fL (80-95); MPV 9.9 fL (8.0-11.0); Monocytes % 7.6 %; Neutrophils % 81.2 %; Platelet Count 158 10^3/uL (130-400); RBC 3.55 10^6/uL (4.36-5.78); RDW 15.4 % (11.8-14.1); RDW-SD 49.7 fL; WBC 6.21 10^3/uL (4.4-10.8)
[2024-09-20 10:17] LABS: ESR 32 mm/hr (0-20)
[2024-09-20 10:30] LABS: ALT 29 U/L (16-63); AST 28 U/L (15-37); Albumin 3.1 g/dL (3.4-5.0); Alkaline Phosphatase 131 U/L (46-116); Anion Gap 9.1 mmol/L (3-11); Bilirubin, Total 0.49 mg/dL (0.2-1.0); C-Reactive Protein 6.83 mg/dL (<or=0.5); CO2 26.9 mmol/L (21.0-32.0); Chloride 102 mmol/L (98-107); Estimated GFR 20.23 (mL/min/1.73m2); Glucose 89 mg/dL (74-106); Potassium 5.1 mmol/L (3.5-5.1); Sodium 138 mmol/L (136-145); Total Protein 6.3 g/dL (6.4-8.2)
[2024-09-20 10:37] LABS: BUN 105 mg/dL (7-18); Vancomycin, Trough 31.2 ug/mL (10.0-20.0)
== END 2024-09-20 17:59 ==
LOC: LBN 17:58
PROVIDERS: PCP Family Medicine; Visit Provider Family Medicine
DX: E11.40 Type 2 diabetes mellitus with diabetic neuropathy, unspecified (principal); Z59.10 Inadequate housing, unspecified
CPT/HCPCS: 80053; 85652; 80202; 85025; 86140

== ENCOUNTER 2024-10-03 21:27 | Outpatient (REF) | payer MEDICARE, SELFPAY ==
[2024-10-03 19:50] LABS: Abs Immature Grans 0.04 10^3/uL (0.0-0.06); Absolute Basophil Count 0.04 10^3/uL (0.0-0.2); Absolute Eosinophil Count 0.21 10^3/uL (0.0-0.7); Absolute Lymphocyte Count 0.43 10^3/uL (1.2-3.4); Absolute Monocyte Count 0.58 10^3/uL (0.1-0.8); Absolute Neutrophil Count 7.15 10^3/uL (1.2-6.7); Basophils % 0.5 %; Eosinophils % 2.5 %; HCT 33.9 % (40.0-50.0); HGB 10.9 g/dL (13.5-17.5); Immature Grans % 0.5 %; Lymphocytes % 5.1 %; MCH 28.1 pg (27.0-33.0); MCHC 32.2 % (32.0-36.0); MCV 87 fL (80-95); MPV 9.5 fL (8.0-11.0); Monocytes % 6.9 %; Neutrophils % 84.5 %; Platelet Count 215 10^3/uL (130-400); RBC 3.88 10^6/uL (4.36-5.78); RDW 14.4 % (11.8-14.1); RDW-SD 46.4 fL; WBC 8.45 10^3/uL (4.4-10.8)
[2024-10-03 20:05] LABS: Anion Gap 10.5 mmol/L (3-11); BUN 73 mg/dL (7-18); CO2 24.5 mmol/L (21.0-32.0); CREATININE 1.8 mg/dL (0.70-1.30); Calcium 9.3 mg/dL (8.5-10.1); Chloride 103 mmol/L (98-107); Estimated GFR 37.35 (mL/min/1.73m2); Glucose 136 mg/dL (74-106); Magnesium 1.7 mg/dL (1.8-2.4); Potassium 4.8 mmol/L (3.5-5.1); Sodium 138 mmol/L (136-145)
== END 2024-10-03 21:28 | disposition home or self-care (01) ==
LOC: LBN 21:27
PROVIDERS: PCP Family Medicine; Visit Provider Family Medicine
DX: L08.9 Local infection of the skin and subcutaneous tissue, unspecified (principal)
CPT/HCPCS: 80048; 83735; 85025

== ENCOUNTER 2024-10-06 12:05 | Outpatient (REF) | payer MEDICARE, SELFPAY ==
[2024-10-06 12:01] LABS: HCT 35.1 % (40.0-50.0); HGB 11.3 g/dL (13.5-17.5); MCH 28.2 pg (27.0-33.0); MCHC 32.2 % (32.0-36.0); MCV 88 fL (80-95); MPV 9.2 fL (8.0-11.0); Platelet Count 166 10^3/uL (130-400); RBC 4.01 10^6/uL (4.36-5.78); RDW 14.1 % (11.8-14.1); RDW-SD 45.5 fL; WBC 8.71 10^3/uL (4.4-10.8)
[2024-10-06 12:03] LABS: Anion Gap 12.4 mmol/L (3-11); BUN 68 mg/dL (7-18); CO2 24.6 mmol/L (21.0-32.0); CREATININE 1.8 mg/dL (0.70-1.30); Calcium 9.3 mg/dL (8.5-10.1); Chloride 102 mmol/L (98-107); Estimated GFR 37.35 (mL/min/1.73m2); Glucose 139 mg/dL (74-106); Magnesium 1.8 mg/dL (1.8-2.4); Potassium 4.4 mmol/L (3.5-5.1); Sodium 139 mmol/L (136-145)
== END 2024-10-06 12:06 | disposition home or self-care (01) ==
LOC: LBN 12:05
PROVIDERS: PCP Family Medicine; Visit Provider Family Medicine
DX: R68.89 Other general symptoms and signs (principal)
CPT/HCPCS: 80048; 85027; 83735

== ENCOUNTER → 2024-11-15 08:15 | Outpatient (BNVA) | payer MEDICARE, SELFPAY | PROVIDERS: PCP Family Medicine; Referring Provider Family Medicine; Visit Provider Psychiatry & Neurology Neurology | DX: M54.32 Sciatica, left side (principal); E11.40 Type 2 diabetes mellitus with diabetic neuropathy, unspecified; M21.371 Foot drop, right foot; M21.372 Foot drop, left foot; R20.0 Anesthesia of skin; L03.115 Cellulitis of right lower limb; M48.061 Spinal stenosis, lumbar region without neurogenic claudication; R26.81 Unsteadiness on feet; G25.81 Restless legs syndrome; G89.29 Other chronic pain | CPT/HCPCS: 99214 ==

== ENCOUNTER → 2024-12-21 08:46 | Outpatient (BNVA) | payer MEDICARE, SELFPAY | PROVIDERS: PCP Family Medicine; Referring Provider Family Medicine; Visit Provider Student in an Organized Health Care Education/Training Program ==

== ENCOUNTER 2024-12-21 16:00 | Outpatient (CLI) | payer MEDICARE, SELFPAY ==
--- NOTE | 2024-12-21 08:44 | DI.RAD_ITS ---
Exam(s) XR SHOULDER RT COMPLETE 2+V EXAM: XR SHOULDER RT COMPLETE 2+V CLINICAL HISTORY: RIGHT SHOULDER PAIN. TECHNIQUE: 2D digital imaging was performed. COMPARISON: No exams were available for comparison FINDINGS: Two views No evidence of fracture but there are advanced degenerative changes in the glenohumeral joint and the re is significant upward subluxation of the humeral head in the osseous glenoid and significant dimin ution of the subacromial space as well as remodeling of the undersurface of the acromium.. These fin dings are consistent with chronic rotator cuff tear. There is also some soft tissue calcification in the subacromial space consistent with calcific chronic rotator cuff tendinitis. IMPRESSION: Advanced osteoarthritic degenerative changes in the glenohumeral joint. Upward subluxation of the hu meral head. Findings are consistent with chronic rotator cuff tear. DATA REPOSITORY: RADIATION DOSE DELIVERED:
== END 2024-12-21 16:01 | disposition home or self-care (01) ==
LOC: DIORS 16:01
PROVIDERS: PCP Family Medicine; Visit Provider Student in an Organized Health Care Education/Training Program
DX: M12.811 Other specific arthropathies, not elsewhere classified, right shoulder
CPT/HCPCS: 20610; 99213; J1010; 73030

== ENCOUNTER → 2025-01-26 13:48 | Outpatient (BNVA) | payer MEDICARE, SELFPAY | PROVIDERS: PCP Family Medicine; Referring Provider Family Medicine; Visit Provider Podiatrist | DX: I83.019 Varicose veins of right lower extremity with ulcer of unspecified site (principal); I83.029 Varicose veins of left lower extremity with ulcer of unspecified site; L97.522 Non-pressure chronic ulcer of other part of left foot with fat layer exposed; L97.912 Non-pressure chronic ulcer of unspecified part of right lower leg with fat layer exposed; I70.203 Unspecified atherosclerosis of native arteries of extremities, bilateral legs; M86.9 Osteomyelitis, unspecified; S80.821A Blister (nonthermal), right lower leg, initial encounter; X58.XXXA Exposure to other specified factors, initial encounter; Z89.422 Acquired absence of other left toe(s); L60.3 Nail dystrophy; B35.1 Tinea unguium; R60.0 Localized edema; L53.8 Other specified erythematous conditions; R23.8 Other skin changes; R20.8 Other disturbances of skin sensation; L60.2 Onychogryphosis | CPT/HCPCS: 11721 ==

== ENCOUNTER 2025-01-30 12:45 | Outpatient (REF) | payer MEDICARE, SELFPAY ==
[2025-01-30 15:29] LABS: Abs Immature Grans 0.04 10^3/uL (0.0-0.06); Absolute Basophil Count 0.03 10^3/uL (0.0-0.2); Absolute Eosinophil Count 0.11 10^3/uL (0.0-0.7); Absolute Lymphocyte Count 0.44 10^3/uL (1.2-3.4); Absolute Monocyte Count 0.56 10^3/uL (0.1-0.8); Absolute Neutrophil Count 6.32 10^3/uL (1.2-6.7); Basophils % 0.4 %; Eosinophils % 1.5 %; HCT 38.9 % (40.0-50.0); Immature Grans % 0.5 %; Lymphocytes % 5.9 %; MCHC 30.8 % (32.0-36.0); MCV 84 fL (80-95); MPV 9.9 fL (8.0-11.0); Monocytes % 7.5 %; Neutrophils % 84.2 %; Platelet Count 190 10^3/uL (130-400); RBC 4.61 10^6/uL (4.36-5.78); RDW 15.8 % (11.8-14.1); RDW-SD 48.7 fL
[2025-01-30 16:42] LABS: Anion Gap 10.8 mmol/L (3-11); BUN 51 mg/dL (7-18); CO2 28.2 mmol/L (21.0-32.0); CREATININE 1.6 mg/dL (0.70-1.30); Calcium 9.3 mg/dL (8.5-10.1); Chloride 102 mmol/L (98-107); Estimated GFR 42.75 (mL/min/1.73m2); Glucose 114 mg/dL (74-106); Potassium 4.6 mmol/L (3.5-5.1); Sodium 141 mmol/L (136-145); Vitamin D 25 Total 28.7 ng/mL (30-100)
[2025-01-30 17:30] LABS: Iron 17 ug/dL (65-175); Total Iron Binding Capacity 254 ug/dL (250-450); Transferrin Sat 7 % (20-55)
[2025-01-30 19:00] LABS: Ferritin 164 ng/mL (26-388)
[2025-02-02 15:43] LABS: Erythropoietin 19.1 mIU/mL (2.6 - 18.5)
== END 2025-01-30 12:46 | disposition home or self-care (01) ==
LOC: NCHCN 12:45
PROVIDERS: PCP Family Medicine; Visit Provider Family Medicine
DX: D64.9 Anemia, unspecified (principal); N18.30 Chronic kidney disease, stage 3 unspecified; I25.10 Atherosclerotic heart disease of native coronary artery without angina pectoris
CPT/HCPCS: 80048; 82306; 82668; 82728; 83540; 83550; 85025

== ENCOUNTER → 2025-05-25 14:25 | Outpatient (BNVA) | payer MEDICARE, SELFPAY | PROVIDERS: PCP Family Medicine; Referring Provider Family Medicine; Visit Provider Podiatrist | DX: I70.203 Unspecified atherosclerosis of native arteries of extremities, bilateral legs (principal); E11.9 Type 2 diabetes mellitus without complications; Z89.512 Acquired absence of left leg below knee; L60.3 Nail dystrophy; B35.1 Tinea unguium; I73.89 Other specified peripheral vascular diseases; R60.0 Localized edema; R20.8 Other disturbances of skin sensation; I83.93 Asymptomatic varicose veins of bilateral lower extremities; L65.9 Nonscarring hair loss, unspecified; R23.8 Other skin changes; L60.2 Onychogryphosis; L60.8 Other nail disorders; N18.9 Chronic kidney disease, unspecified | CPT/HCPCS: 11720 ==

== ENCOUNTER → 2025-06-12 14:41 | Outpatient (BNVA) | payer MEDICARE, SELFPAY | PROVIDERS: PCP Family Medicine; Visit Provider Psychiatry & Neurology Neurology | DX: R26.81 Unsteadiness on feet (principal); M54.50 Low back pain, unspecified; G89.29 Other chronic pain; E11.40 Type 2 diabetes mellitus with diabetic neuropathy, unspecified; M54.32 Sciatica, left side; M21.371 Foot drop, right foot; M21.372 Foot drop, left foot; R20.2 Paresthesia of skin; L03.115 Cellulitis of right lower limb; M48.061 Spinal stenosis, lumbar region without neurogenic claudication; G25.81 Restless legs syndrome; E11.22 Type 2 diabetes mellitus with diabetic chronic kidney disease; I12.9 Hypertensive chronic kidney disease with stage 1 through stage 4 chronic kidney disease, or unspecified chronic kidney disease; N18.9 Chronic kidney disease, unspecified; E53.8 Deficiency of other specified B group vitamins | CPT/HCPCS: 99214 ==

== ENCOUNTER 2025-07-05 11:20 | Outpatient (REF) | payer MEDICARE, SELFPAY ==
[2025-07-05 15:48] LABS: Anion Gap 9.5 mmol/L (3-11); BUN 51 mg/dL (7-18); CO2 27.5 mmol/L (21.0-32.0); Calcium 9.4 mg/dL (8.5-10.1); Chloride 99 mmol/L (98-107); Estimated GFR 34.79 (mL/min/1.73m2); Glucose 116 mg/dL (74-106); Potassium 4.8 mmol/L (3.5-5.1); Sodium 136 mmol/L (136-145)
[2025-07-05 16:09] LABS: COMMENT (LAB VIEW ONLY) < 13.00 mg/dL; Microalb ug/mg Crea 270.0 ug/mg Cr
== END 2025-07-05 11:21 | disposition home or self-care (01) ==
LOC: NCHCN 11:20
PROVIDERS: PCP Family Medicine; Visit Provider Family Medicine
DX: E11.42 Type 2 diabetes mellitus with diabetic polyneuropathy (principal); N18.30 Chronic kidney disease, stage 3 unspecified
CPT/HCPCS: 80048; 82043; 82570

== ENCOUNTER 2025-07-30 19:56 | Observation (INO) | payer MEDICARE, SELFPAY ==
[2025-07-30] VITALS (20 sets, daily range): BP systolic 121–153; BP diastolic 56–74; PULSE 79–108; RESP 18–24; TEMP 37.3–38.6; O2SAT 90–98
--- NOTE | 2025-07-30 20:00 | RT.EKG_ITS ---
APPROVED REPORT Exam: Resting ECG Reason for Exam: weakness Patient Location: E HR:99 bpm ECG Measurements Heart Rate 99 AXIS WY 171 P 0 QRSd 96 QRS -32 QT 343 T 20 QTc 440 Conclusion Sinus rhythm...normal P axis, V-rate 60- 99 Inferior infarct, old...Q >35mS, II III aVF
--- NOTE | 2025-07-30 20:11 | W.ED.GENAD ---
Discharge Plan Disposition Patient Disposition: Admit to [facility] Condition: Stable Discharge Details Clinical Impression: Urinary tract infection, Acute kidney injury, Congestive heart failure, Non-ST elevated myocardial infarction Primary Care Provider: Cameron Mcarthur ED Provider: Reymundo Magallanes Home Meds and New Rx's Prescriptions: No Action magnesium oxide 400 mg (241.3 mg magnesium) tablet 800 mg PO DAILY aspirin 81 mg tablet,delayed release (DR/EC) 81 mg PO DAILY pantoprazole 40 mg tablet,delayed release (DR/EC) 40 mg PO DAILY ketoconazole 2 % cream 1 applic topical DAILY PRN Patient Comments: currently unable to use due to legs being wrapped. Jardiance 25 mg tablet 25 mg PO DAILY gentamicin 0.1 % cream 1 applic topical QID Qty: 30 0RF ropinirole 1 mg tablet 1 mg PO TID Qty: 270 3RF Rx Instructions: 1mg at noon, 2PM, and 6PM; along with 2mg RX ropinirole 2 mg tablet 2 mg PO .nightly Qty: 90 3RF Rx Instructions: along with 1mg Rx fluticasone propionate 50 mcg/actuation spray,suspension 1 spray intranasal DAILY PRN (Reason: nasal congestion) Rx Instructions: administer into each nostril furosemide 40 mg tablet 40 mg PO DAILY lidocaine 5 % ointment 1 applic topical QHS Patient Comments: currently unable to use due to legs being wrapped triamcinolone acetonide 0.1 % ointment 1 applic topical DAILY ezetimibe 10 mg tablet 10 mg PO DAILY fenofibrate nanocrystallized 145 mg tablet 145 mg PO DAILY (DME) AFO custom See Rx Instructions .Route .MEDSUPPLY Qty: 1 0RF Rx Instructions: As directed doxazosin [Cardura] 4 mg tablet 4 mg PO BID gabapentin 300 mg capsule 300 mg PO TID insulin glargine [Lantus U-100 Insulin] 100 unit/mL solution 10 unit subcut QHS insulin lispro [Humalog KwikPen Insulin] 100 unit/mL insulin pen See Rx Instructions subcut .SLIDING SCALE Patient Comments: pt. reports taking 15 units Rx Instructions: subcutaneously SLIDING SCALE; 1u for each 15G of carbs, max 60u in 24 hours. cyanocobalamin (vitamin B-12) 1,000 mcg capsule 1,000 mcg PO DAILY cholecalciferol (vitamin D3) 50 mcg (2,000 unit) capsule 50 mcg PO DAILY ferrous sulfate [FeroSul] 325 mg (65 mg iron) tablet 325 mg PO DAILY Patient Comments: TAKE ONE TABLET BY MOUTH EVERY DAY metformin 500 mg tablet 500 mg PO BID Patient Comments: TAKE ONE TABLET BY MOUTH TWICE A DAY baclofen 5 mg tablet 5 mg PO HS Patient Comments: TAKE ONE TABLET BY MOUTH AT BEDTIME acetaminophen 500 mg tablet 1,000 mg PO TID PRN polyethylene glycol 3350 [ClearLax] 17 gram/dose powder 17 g PO DAILY PRN HPI General Date/Time Provider Initiated Documentation: 07/30/25 20:07. HPI Narrative: 80 year-old male presents to ED today by POV/wheelchair with his daughter with a chief complaint of decreased urine output, difficulty with straining to urinate with onset since yesterday- has history of kidney stones and history of need for barraza catheterization. Quality described as flank pain diffusely, foul smelling urine, cold chills, no radiation to chest pain, respiratory distress, endorses diaphoresis earlier today, denies hematuria, denies nausea/vomiting. Severity is described as moderate. Palliating factors include nothing specific attempted- took ibuprofen earlier and helped with the chills. Provoking factors include nothing specific. Events leading up to the incident/Associated Symptoms: Patient endorses t2DM with L BKA, endorses CHF. Patient not anticoagulated. Related Data Home Medications ?Medication ?Instructions ?Recorded ?Confirmed magnesium oxide 400 mg (241.3 mg 800 mg PO DAILY 07/21/22 07/30/25 magnesium) tablet fluticasone propionate 50 1 spray intranasal DAILY PRN nasal 05/28/23 07/30/25 mcg/actuation nasal congestion spray,suspension AFO #1 ea 08/10/23 06/12/25 aspirin 81 mg tablet,delayed 81 mg PO DAILY 09/08/23 07/30/25 release pantoprazole 40 mg tablet,delayed 40 mg PO DAILY 09/23/23 07/30/25 release empagliflozin 25 mg tablet 25 mg PO DAILY 12/25/23 07/30/25 (Jardiance) ketoconazole 2 % topical cream 1 applic topical DAILY PRN 12/25/23 07/30/25 acetaminophen 500 mg tablet 1,000 mg PO TID PRN 02/04/24 07/30/25 baclofen 5 mg tablet 5 mg PO HS 02/04/24 07/30/25 ferrous sulfate 325 mg (65 mg 325 mg PO DAILY 02/04/24 07/30/25 iron) tablet (FeroSul) metformin 500 mg tablet 500 mg PO BID 02/04/24 07/30/25 lidocaine 5 % topical ointment 1 applic topical QHS 04/07/24 07/30/25 triamcinolone acetonide 0.1 % 1 applic topical DAILY 04/07/24 07/30/25 topical ointment furosemide 40 mg tablet 40 mg PO DAILY 04/28/24 07/30/25 gentamicin 0.1 % topical cream 1 applic topical QID #30 grams 07/20/24 07/30/25 polyethylene glycol 3350 17 17 g PO DAILY PRN 09/20/24 07/30/25 gram/dose oral powder (ClearLax) ropinirole 1 mg tablet 1 mg PO TID #270 tabs 11/15/24 07/30/25 ropinirole 2 mg tablet 2 mg PO .nightly #90 tabs 11/15/24 07/30/25 cholecalciferol (vitamin D3) 50 50 mcg PO DAILY 04/04/25 07/30/25 mcg (2,000 unit) capsule cyanocobalamin (vitamin B-12) 1,000 mcg PO DAILY 04/04/25 07/30/25 1,000 mcg capsule doxazosin 4 mg tablet (Cardura) 4 mg PO BID 04/04/25 07/30/25 gabapentin 300 mg capsule 300 mg PO TID 04/04/25 07/30/25 insulin glargine 100 unit/mL 10 unit subcut QHS 04/04/25 07/30/25 subcutaneous solution (Lantus U-100 Insulin) insulin lispro 100 unit/mL See Rx Instructions subcut 04/04/25 07/30/25 subcutaneous pen (Humalog KwikPen .SLIDING SCALE (U-100) Insulin) ezetimibe 10 mg tablet 10 mg PO DAILY 06/12/25 07/30/25 fenofibrate nanocrystallized 145 145 mg PO DAILY 06/12/25 07/30/25 mg tablet Previous Rx's ?Medication ?Instructions ?Recorded AFO #1 ea 08/10/23 gentamicin 0.1 % topical cream 1 applic topical QID #30 grams 07/20/24 ropinirole 1 mg tablet 1 mg PO TID #270 tabs 11/15/24 ropinirole 2 mg tablet 2 mg PO .nightly #90 tabs 11/15/24 Allergies Allergy/AdvReac Type Severity Reaction Status Date / Time daptomycin Allergy Unknown myalgias Unverified 07/30/25 20:08 amlodipine besylate (From AdvReac Mild edema Verified 07/30/25 20:08 Norvasc) enalapril maleate (From AdvReac Mild cough Verified 07/30/25 20:08 Vasotec) enalaprilat dihydrate (From AdvReac Mild cough Verified 07/30/25 20:08 Vasotec) pravastatin sodium (From AdvReac Mild myalgia Verified 07/30/25 20:08 Pravachol) from Lipitor rosuvastatin (From Crestor) AdvReac Mild Myalgia Verified 07/30/25 20:08 General Stated Complaint: Urinary TONG: 3 Review of Systems All systems reviewed & are unremarkable except as noted in HPI and below Exam Narrative Exam Narrative: GENERAL APPEARANCE: Well-nourished, toxic, awake and alert, atraumatic, mild to moderate acute distress. SKIN: Warm, pink, dry, intact, without rashes/lesions/ulcerations. HEAD: Normocephalic, atraumatic, normal hair distribution for gender/age. EYES: Normal conjunctiva, no exudates on lids/lashes. ENT: Nares patent, no circumoral cyanosis, no facial swelling NECK: Supple, trachea midline, painless cervical ROM. LUNGS/CHEST: Lungs CTA bilaterally- no rales at bases, non-labored respirations, normal A/P diameter, symmetrical expansion, no chest wall deformity HEART (CV/PV): Regular rate- tachycardic and rhythm without murmur, no peripheral edema, no JVD. ABDOMEN: Soft, distended, no guarding, no focal tenderness, diffuse flank tenderness MSK: Normal ROM, no swelling/deformity to bilateral UEs or LEs, moving all extremities without weakness, no cyanosis, spine midline without tenderness, normal curvature. NEURO: Mental Status AAOx4 - alert to person, place, time, events No facial droop, no forehead involvement. Motor: No focal weakness - strength 5/5 in bilateral UEs and LEs, proximal and distal, symmetric. Sensory: sensation intact to light touch globally. Gait NT. PSYCH: euthymic, cooperative, pleasant, appropriate speech Course Vital Signs Vital signs: Vital Signs Temperature 37.3 C 07/30/25 20:03 Pulse 105 H 07/30/25 20:03 Respiratory Rate 24 07/30/25 20:03 Blood Pressure 142/73 H 07/30/25 20:03 Pulse Oximetry 96 07/30/25 20:03 Temperature 37.3 C 07/30/25 20:03 Temperature Source Tympanic 07/30/25 20:03 Pulse 105 H 07/30/25 20:03 Respiratory Rate 24 07/30/25 20:03 Blood Pressure 142/73 H 07/30/25 20:03 Blood Pressure Position Supine 07/30/25 20:03 Pulse Oximetry 96 07/30/25 20:03 Oxygen Delivery Method Room Air 07/30/25 20:03 Oxygen Flow Rate 0 07/30/25 20:03 Pain Level 0 07/30/25 20:03 Medical Decision Making This dictation utilizes [id number] dictation software and may contain unedited grammatical errors. 80 year-old male presents to ED today by POV/wheelchair with his daughter with a chief complaint of decreased urine output, difficulty with straining to urinate with onset since yesterday- has history of kidney stones and history of need for barraza catheterization. Quality described as flank pain diffusely, foul smelling urine, cold chills, no radiation to chest pain, respiratory distress, endorses diaphoresis earlier today, denies hematuria, denies nausea/vomiting. Severity is described as moderate. Palliating factors include nothing specific attempted- took ibuprofen earlier and helped with the chills. Provoking factors include nothing specific. Events leading up to the incident/Associated Symptoms: Patient endorses t2DM with L BKA, endorses CHF. Patients' medical history: Peripheral venous insufficiency, liver disease, anemia, T2DM, polypharmacy, pulmonary edema, renal insufficiency, vertigo, coronary artery disease, rhabdomyolysis, history of DVT, hypertension, QUETA. Family and social history: [ ]. Pertinent exam findings / vital signs include L LE BKA, R LE in wound care dressing, warm to touch, no abdominal tenderness but does have distention- likely anasarca, no rales at bases of lungs, neuro intact. Differential / pathologies of concern include cellulitis, UTI, urinary retention, kidney stone, CHF exacerbation. Diagnostic studies of: - CBC, CMP, lactate, UA, lipase, CK, serial troponin, BNP, EKG, CT chest/ABD/pelvis with contrast. - CBC shows no leukocytosis, shows mild anemia - Lactate negative at 1.9 - CMP shows worsening creatinine of 2.0, - Magnesium mildly low at 1.7 - Troponin is 119, 1 hour repeat 120 - BNP is 4000 significantly higher than prior values - Lipase negative - UA shows greater than 50 WBCs - CK WNL - CT shows significant perivesicular fat stranding associated with likely severe UTI, no other abnormalities of chest abdomen or pelvis - EKG shows sinus rhythm at 99 bpm with P waves followed by a narrow complex QRS, no ST changes of ischemia, normal intervals Interventions of: - 2gm IV Ceftriaxone, IVF NS @ 125/mL/hr. - Consulted with Hospitalist Dr. Adan at 2014- accepted for admission ED Course/Assessment/Plan: 80-year-old male presents with dysuria, difficulty urinating, has foul odor of UTI, also reports that his right leg has been bothering him he is in specialized dressings with no overt lymphadenitis above the dressing, he is afebrile on arrival but mildly tachycardic. His UA shows blood, nitrates, greater than 50 WBCs, CT shows perivesicular fat stranding around the bladder, his creatinine is above baseline at 2.0, his BNP is severely elevated in the 4000's will be on his baseline with elevated troponin which is stable around 119/120.. He had 50 mL of output in 2.25 hours here, consulted with hospitalist for admission for UTI, HANNAH, congestive heart failure and type II NSTEMI, accepted for admission, patient has urine cultures running, received IV ceftriaxone and fluids at maintenance rate to not cause any volume overload. Disposition of Urinary Tract Infection, Acute Kidney Injury, Congestive Heart Failure, Type II Non-ST Elevation Myocardial Infarction. Patient verbalized understanding of the plan and return to ED criteria and engaged in shared decision making. Medical Records Medical records reviewed: Yes I reviewed the patient's medical records. Imaging Data Radiologic Study: Attestation: I personally reviewed and interpreted this imaging study as follows: Imaging: CT Scan Radiologist's impression: Exam: CT Chest With Contrast; Diagnostic Exam date and time: 07/30/2025 9:11 PM Age: 80 years old Clinical indication: Other: Urinary retention, anasarca TECHNIQUE: Imaging protocol: Diagnostic computed tomography of the chest with contrast. 3D rendering (Not supervised by radiologist): MIP and/or 3D reconstructed images were created by the technologist. Contrast material: OMNIPAQUE 350; Contrast volume: 75 ml; Contrast route: INTRAVENOUS (IV); COMPARISON: CT CHEST PE CTA 09/27/2021 2:29 PM FINDINGS: Lungs: There is peripheral interlobular septal thickening throughout both lungs suspicious for early fibrotic change. No focal pulmonary consolidation. Pleural spaces: No pleural effusion or pneumothorax. Heart: The heart is enlarged. No pericardial effusion. Coronary arteries: There are moderate atheromatous coronary artery calcifications. Lymph nodes: No enlarged lymph nodes. Vasculature: Atheromatous calcifications are present within the visualized thoracic aorta. Bones/joints: Bones have a normal appearance. No acute fracture or suspicious bone lesion. Soft tissues: Unremarkable. IMPRESSION: No acute pulmonary findings. PROCEDURE INFORMATION: Exam: CT Abdomen And Pelvis With Contrast Exam date and time: 07/30/2025 9:11 PM Age: 80 years old Clinical indication: Other: Urinary retention, anasarca TECHNIQUE: Imaging protocol: Computed tomography of the abdomen and pelvis with contrast. 3D rendering (Not supervised by radiologist): MIP and/or 3D reconstructed images were created by the technologist. COMPARISON: CT CHEST PE CTA 09/27/2021 2:29 PM FINDINGS: Diaphragm: There is a small hiatal hernia. Liver: The liver has a normal appearance. Gallbladder and biliary ducts: The gallbladder is unremarkable. No biliary ductal dilatation. Pancreas: The pancreas is atrophic. Spleen: The spleen measures 16.8 cm in length. Adrenal glands: The adrenal glands have a normal appearance. Kidneys and ureters: Low-density cortical cystic lesions are present bilaterally within the kidneys. The kidneys are normal in size. There is mild bilateral perinephric fat stranding. No nephrolithiasis or hydronephrosis. No hydroureter or ureterolithiasis. Stomach and bowel: The bowel demonstrates overall normal caliber and wall thickness. Appendix: The appendix is thin walled. Intraperitoneal space: Unremarkable. No free air. No significant fluid collection. Vasculature: There are dense atheromatous calcifications throughout the aorta and iliac arteries. Lymph nodes: No enlarged lymph nodes. Urinary bladder: The bladder is thin walled. There is diffuse perivesicular fat stranding. Reproductive: Unremarkable as visualized. Bones/joints: Bones have a normal appearance. No acute fracture or suspicious bone lesion. Soft tissues: There is a moderate-sized fat containing right inguinal hernia. There is a small fat containing left inguinal hernia. IMPRESSION: 1. Perivesicular fat stranding which may be associated with acute cystitis. Please correlate with urinalysis. 2. Marked splenomegaly. 3. No other acute intra-abdominal findings. 4. Normal appendix. Dictated and Authenticated by: Becky Cano MD. Lab Data Lab results reviewed: Yes I reviewed the patient's lab results. Labs: 07/30/25 21:34 Blood Blood Culture - Pending 07/30/25 20:50 Urine - Reflex from Ua Urine Culture - Pending 07/30/25 20:55 Blood Blood Culture - Pending Laboratory Tests Range/Units 07/30/25 07/30/25 07/30/25 20:23 20:50 21:34 WBC (4.4-10.8) 10^3/uL 3.66 L RBC (4.36-5.78) 10^6/uL 4.51 Hgb (13.5-17.5) g/dL 12.0 L Hct (40.0-50.0) % 37.3 L MCV (80-95) fL 83 MCH (27.0-33.0) pg 26.6 L MCHC (32.0-36.0) % 32.2 RDW (11.8-14.1) % 17.3 H Plt Count (130-400) 10^3/uL 132 MPV (8.0-11.0) fL 9.4 Immature Gran % % 0.3 Neutrophils % % 84.4 Lymphocytes % % 5.2 Monocytes % % 9.8 Eosinophils % % 0.0 Basophils % % 0.3 Nucleated RBC % (0.0-0.3) % 0.0 Absolute Neutrophils (1.2-6.7) 10^3/uL 3.09 Absolute Lymphocytes (1.2-3.4) 10^3/uL 0.19 L Absolute Monocytes (0.1-0.8) 10^3/uL 0.36 Absolute Eosinophils (0.0-0.7) 10^3/uL 0.00 Absolute Basophils (0.0-0.2) 10^3/uL 0.01 VBG Lactate (<or=2.0) mmol/L 1.9 Sodium (136-145) mmol/L 135 L Potassium (3.5-5.1) mmol/L 4.9 Chloride (98-107) mmol/L 98 Carbon Dioxide (21.0-32.0) mmol/L 28.2 Anion Gap (3-11) mmol/L 8.8 BUN (7-18) mg/dL 50 H Creatinine (0.70-1.30) mg/dL 2.0 H Est GFR (CKD-EPI 2020) (mL/min/1.73m2) 32.71 Glucose (74-106) mg/dL 171 H Calcium (8.5-10.1) mg/dL 9.0 Magnesium (1.8-2.4) mg/dL 1.7 L Total Bilirubin (0.2-1.0) mg/dL 0.7 AST (15-37) U/L 40 H ALT (16-63) U/L 29 Alkaline Phosphatase (46-116) U/L 92 Creatine Kinase (39-308) U/L 187 Troponin I (<or=76) ng/L 119 H* 120 H* NT-Pro-B Natriuret Pep (<300) pg/mL 4135 H Total Protein (6.4-8.2) g/dL 7.0 Albumin (3.4-5.0) g/dL 3.4 Lipase (<78) U/L 30 Urine Color (Yellow) Yellow Urine Clarity (Clear) Cloudy Urine pH (5-8) 6.5 Ur Specific [place] (1.005-1.025) 1.010 Urine Protein (Neg-Trace) mg/dL 30 H Urine Ketones (Negative) mg/dL Negative Urine Blood (Negative) Small H Urine Nitrite (Negative) Positive H Urine Bilirubin (Negative) Negative Urine Urobilinogen (Up to 0.2) mg/dL 1.0 H Ur Leukocyte Esterase (Negative) Moderate H Urine RBC (0-2) HPF 3-5 H Urine WBC (0-5) HPF >50 H Ur Epithelial Cells (Negative) HPF Rare Urine Crystals (Negative) HPF Negative Urine Bacteria (Negative) HPF Many Urine Casts (Negative) LPF Negative Urine Mucus (Negative) Negative Ur Culture Indicated? Yes Urine Glucose (Negative) mg/dL >=1000 H Quality:SDOH Health Related Social Needs: Health related social needs details [place] [facility] All Active Problems (Updated 07/30/25 @ 22:17 by JOURDAN Dailey) Non-ST elevated myocardial infarction (Acute) Congestive heart failure (Chronic) Acute kidney injury (Acute) Urinary tract infection (Acute) Palliative care patient (Acute) History of cardioversion (Acute) 05/01/25 Unilateral below-knee amputation (Acute) Left Rotator cuff arthropathy of right shoulder (Acute) DEPO MEDROL 12/21/24 Ulcer of right lower extremity with fat layer exposed (Acute) Blister of right leg (Acute) Ulcer of left foot with necrosis of bone (Acute) CKD (chronic kidney disease), stage III (Acute) Transaminitis (Acute) Elevated CPK (Acute) Atherosclerosis of left lower extremity with ulceration (Acute) Diabetic foot infection (Acute) Atherosclerosis of artery of both lower extremities (Acute) Ulcer of left foot with fat layer exposed (Acute) Osteomyelitis of left foot (Chronic) Restless leg syndrome (Acute) DVT (deep venous thrombosis) (Chronic) Venous ulcer-leg syndrome, bilateral (Acute) Onychogryphosis (Acute) Venous insufficiency of both lower extremities (Acute) Ulcer of right foot with fat layer exposed (Acute) Controlled type 2 diabetes mellitus with ulcer of toe (Acute) Atherosclerosis of [place] arteries of right leg with ulceration of ankle (Acute) Impacted cerumen, bilateral (Acute) Ulcer of extremity due to chronic venous insufficiency (Acute) Pneumonia (Acute) Nail dystrophy (Acute) Lumbar stenosis (Acute) Carpal tunnel syndrome of left wrist (Acute) Bilateral hand numbness (Acute) Foot drop, bilateral (Acute) Left sided sciatica (Acute) Impairment of speech discrimination (Acute) Asymmetrical sensorineural hearing loss (Acute) Onychomycosis (Acute) DVT prophylaxis (Acute) Sepsis (Acute) Infection of total right knee replacement (Acute) S/p irrigation and debridement; poly exchange; arthrotomy repair DOS: 10/04/2021 Advance care planning (Acute) Bacteremia (Acute) Asymmetrical sensorineural hearing loss (Acute) History of total right knee replacement (Acute 01/16/21) First degree heart block (Acute) Cellulitis (Acute) History of total left knee replacement (TKR) (Acute 12/14/19) Dr. Wilson s/p debridement and poly exchange 02/10/20 Hypertension (Chronic) Tubular adenoma of colon (Acute 09/02/16) Tubulovillous adenoma polyp of colon (Chronic) Noted by colonoscopy. Chest pain, rule out acute myocardial infarction (Acute 11/01/13) Abnormal LFTs (Chronic) Secondary to fartty infiltrate of the liver. Diabetic renal disease (Chronic) Benign hypertension (Chronic) Obesity (Chronic) Benign prostatic hyperplasia (Chronic) Obstructive sleep apnea syndrome (Chronic) Nocturnal CPAP Hyperlipidemia (Chronic) Diabetes mellitus type 2 (Chronic) Since approximately 1997. On insulin thereapy. Last hemoglobin A1c 6.5% March 2013. 11-01-2013: Most recent hemoglobin A1c was 6.6 ? date. 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 to type 2 diabetes mellitus Type 2 diabetes mellitus treated with insulin Polypharmacy Pain in shoulder region Uses self-applied continuous glucose monitoring device Upper respiratory infection Cough Dysuria Pulmonary edema Burn of left index finger Peripheral vascular disease Burn of middle finger History of urinary system disease Constipation Diabetic neuropathy Renal insufficiency Low blood magnesium (11/01/13) Paresthesias Fatty infiltration of liver Erectile dysfunction Foot drop Unsteady gait History of removal of joint prosthesis of right knee due to infection Microalbuminuria Diabetic polyneuropathy Morbid obesity Sleep apnea BPH (benign prostatic hyperplasia) Myalgia Perennial allergic rhinitis Vertigo Palliative care patient Hearing loss Chronic lower back pain Osteoarthritis Venous insufficiency Sleep apnea with use of continuous positive airway pressure (CPAP) History of seizures as a child Hx of myocardial infarction 10/2011 STRESS TEST COMPLETED 11/29/2019 Hyperlipidemia CAD (coronary artery disease) Cellulitis RIGHT LOWER LEG Diabetes Arthritis Surgical History History of synovectomy Amputation toe Left 4th and 5th open ray amputation History of total left hip arthroplasty (07/29/23) Carpal tunnel syndrome of right wrist S/P ECTR: 10/28/2022 H/O total knee replacement left knee 12/14/2019, right knee 01/16/2021 History of tonsillectomy and adenoidectomy H/O heart artery stent X2 2014 colonoscopy (09/02/16) Family History Maternal Aunt Colon cancer Maternal Aunt Colon cancer Father , 70s Heart disease Mother Lung cancer Tetanus Brother Liver failure Alcohol use disorder Kidney disease Son , tractor accident Accident caused by farm tractor Social History Smoking/Tobacco Use Status: Never Smoking risk assessment performed?: Yes Alcohol Intake: never Drug use: Never Substance use type: does not use Housing: house Do you feel safe at home: Yes Do you feel safe in your relationship?: Yes Additional Social history: unable to assess to privately
--- NOTE | 2025-07-30 20:15 | DI.CT_ITS ---
Exam(s) CT CHEST/ABD/PEL W EXAM: CT CHEST/ABD/PEL W CLINICAL HISTORY: urinary retention, anasarca TECHNIQUE: Imaging Protocol: Axial computed tomography images with coronal and sagittal reformatted images were created and reviewed. Lung Computer Aided Detection (CAD) was utilized. CONTRAST MATERIAL: Intravenous: Omnipaque 350 contrast volume:75 mL Oral: No COMPARISON: CT CT CHEST PE CTA from 09/27/[address] ABD AORTA CTA W RUNOFF from 02/04/2024 FINDINGS: CHEST: Tracheobronchial tree: Patent where visualized. No evidence of bronchiectasis. Pulmonary parenchyma: There is dependent atelectasis in the lung bases. There is mild linear peripheral interstitial disease present which appears stable and likely reflect is chronic. There are no suspicious pulmonary nodules. Visualized thyroid gland: Unremarkable. Mediastinum and Sommer: No dominant adenopathy or fluid collection. The esophagus is unremarkable. Pleura: No effusion or pneumothorax. Heart: Cardiomegaly. There is prominent three-vessel coronary artery calcification present. No pericardial effusion. Pulmonary arteries: Due to the timing of the bolus, there is suboptimal opacification of the pulmonary arteries for evaluation of pulmonary emboli. Aorta: The ascending thoracic aorta measures 4.4 x 4.1 cm. Atherosclerotic calcification is present. Lymph nodes: Within normal limits. Soft tissues: Unremarkable. Bones:Within normal limits for the patient's age. ABDOMEN: Liver: Normal density. There is mild nodularity of the liver with an enlarged left lobe suspicious for hepatic cirrhosis. Portal, Superior Mesenteric, and Splenic Veins: Unremarkable. Gallbladder and Biliary Tract: There is a gallstone present. There is no biliary ductal dilatation. Pancreas: Normal density, no abnormal calcifications or inflammatory process. Spleen: Splenomegaly. Adrenals: No masses seen. Kidneys: Normal size, contour and axis. No radiodense stones or obstructive uropathy. There well-circumscribed hypodensities on the kidneys. They are too small for further characterization but likely reflect small cysts. No follow-up is recommended. No suspicious hepatic lesions are identified. Abdominal Aorta: Abdominal portion non-dilated. Atherosclerotic calcification is present. Bowel: There are few scattered diverticula but no evidence of acute diverticulitis. There is no evidence of bowel obstruction or bowel wall thickening. Appendix is unremarkable. Peritoneal Cavity: No ascites, collection or mesenteric inflammatory response. No free air. Lymph Nodes: Within normal limits. Bones: Within normal limits for the patient's age. The patient has a left hip arthroplasty. Soft Tissues: There is a fat containing left inguinal hernia. PELVIS: Bladder: There is diffuse mild bladder wall thickening. No stones are seen. There is mild infiltration in the surrounding soft tissues. Reproductive Organs: The prostate gland appears within normal limits in size. There is limited visualization due to artifact from the patient's left hip arthroplasty. Lymph Nodes: Within normal limits. Bones: Within normal limits. IMPRESSION: 1. Diffuse urinary bladder wall thickening. This may represent a cystitis. Correlate clinically. 2. There is no evidence of nephrolithiasis or obstructive uropathy. 3. Colonic diverticulosis but no evidence of acute diverticulitis. 4. Cholelithiasis. No biliary ductal dilatation. 5. Splenomegaly. Nodular contour of the liver suggesting hepatic cirrhosis. 6. No definite acute pulmonary process. 7. The ascending thoracic aorta measures 4.4 x 4.1 cm. 8. The preliminary [facility] report was reviewed. RADIATION DOSE DELIVERED: 780.73mGy.cm Total DLP DATA REPOSITORY: All CT scans at this facility are submitted to the National Radiology Data Registry (NRDR) Dose Index Registry (DIR) with the [employer] (ACR). RADIATION OPTIMIZATION: All CT scans at this facility use at least one of these dose optimization techniques: automated exposure control; mA and/or kV adjustment per patient size (includes targeted exams where dose is matched to clinical indication); or iterative reconstruction.
[2025-07-30 20:30] LABS: Abs Immature Grans 0.01 10^3/uL (0.0-0.06); HCT 37.3 % (40.0-50.0); HGB 12.0 g/dL (13.5-17.5); Immature Grans % 0.3 %; MCH 26.6 pg (27.0-33.0); MCHC 32.2 % (32.0-36.0); MCV 83 fL (80-95); MPV 9.4 fL (8.0-11.0); Platelet Count 132 10^3/uL (130-400); RBC 4.51 10^6/uL (4.36-5.78); RDW 17.3 % (11.8-14.1); RDW-SD 51.7 fL; WBC 3.66 10^3/uL (4.4-10.8)
[2025-07-30 20:54] LABS: Glucose >=1000 mg/dL (Negative)
[2025-07-30 20:59] LABS: ALT 29 U/L (16-63); AST 40 U/L (15-37); Albumin 3.4 g/dL (3.4-5.0); Alkaline Phosphatase 92 U/L (46-116); Anion Gap 8.8 mmol/L (3-11); BUN 50 mg/dL (7-18); Bilirubin, Total 0.7 mg/dL (0.2-1.0); CO2 28.2 mmol/L (21.0-32.0); Calcium 9.0 mg/dL (8.5-10.1); Chloride 98 mmol/L (98-107); Estimated GFR 32.71 (mL/min/1.73m2); Glucose 171 mg/dL (74-106); Lipase 30 U/L (<78); Magnesium 1.7 mg/dL (1.8-2.4); NT-proBNP 4135 pg/mL (<300); Potassium 4.9 mmol/L (3.5-5.1); Sodium 135 mmol/L (136-145); Total Protein 7.0 g/dL (6.4-8.2)
[2025-07-30 21:00] LABS: Troponin I 119 ng/L (<or=76)
[2025-07-30] MEDS: Normal Saline Flush 10 ML SYR IVP (21:03)
[2025-07-30] MEDS: Normal Saline - Diluent 50 ML VIAL IJ (21:03)
[2025-07-30 21:04] LABS: C & S Indicated? Yes; WBC >50 HPF (0-5)
[2025-07-30] MEDS: Omnipaque 350 MG/ML 100 ML BTL IJ (21:04)
[2025-07-30] MEDS: cefTRIAXone 2 GM/50 ML BAG IVPB (21:38)
[2025-07-30 21:54] LABS: Creatine Kinase 187 U/L (39-308)
--- NOTE | 2025-07-30 21:59 | DI.[facility]_ITS ---
PROCEDURE INFORMATION: Exam: CT Chest With Contrast; Diagnostic Exam date and time: 07/30/2025 9:11 PM Age: 80 years old Clinical indication: Other: Urinary retention, anasarca TECHNIQUE: Imaging protocol: Diagnostic computed tomography of the chest with contrast. 3D rendering (Not supervised by radiologist): MIP and/or 3D reconstructed images were created by the technologist. Contrast material: OMNIPAQUE 350; Contrast volume: 75 ml; Contrast route: INTRAVENOUS (IV); COMPARISON: CT CHEST PE CTA 09/27/2021 2:29 PM FINDINGS: Lungs: There is peripheral interlobular septal thickening throughout both lungs suspicious for early fibrotic change. No focal pulmonary consolidation. Pleural spaces: No pleural effusion or pneumothorax. Heart: The heart is enlarged. No pericardial effusion. Coronary arteries: There are moderate atheromatous coronary artery calcifications. Lymph nodes: No enlarged lymph nodes. Vasculature: Atheromatous calcifications are present within the visualized thoracic aorta. Bones/joints: Bones have a normal appearance. No acute fracture or suspicious bone lesion. Soft tissues: Unremarkable. IMPRESSION: No acute pulmonary findings. PROCEDURE INFORMATION: Exam: CT Abdomen And Pelvis With Contrast Exam date and time: 07/30/2025 9:11 PM Age: 80 years old Clinical indication: Other: Urinary retention, anasarca TECHNIQUE: Imaging protocol: Computed tomography of the abdomen and pelvis with contrast. 3D rendering (Not supervised by radiologist): MIP and/or 3D reconstructed images were created by the technologist. COMPARISON: CT CHEST PE CTA 09/27/2021 2:29 PM FINDINGS: Diaphragm: There is a small hiatal hernia. Liver: The liver has a normal appearance. Gallbladder and biliary ducts: The gallbladder is unremarkable. No biliary ductal dilatation. Pancreas: The pancreas is atrophic. Spleen: The spleen measures 16.8 cm in length. Adrenal glands: The adrenal glands have a normal appearance. Kidneys and ureters: Low-density cortical cystic lesions are present bilaterally within the kidneys. The kidneys are normal in size. There is mild bilateral perinephric fat stranding. No nephrolithiasis or hydronephrosis. No hydroureter or ureterolithiasis. Stomach and bowel: The bowel demonstrates overall normal caliber and wall thickness. Appendix: The appendix is thin walled. Intraperitoneal space: Unremarkable. No free air. No significant fluid collection. Vasculature: There are dense atheromatous calcifications throughout the aorta and iliac arteries. Lymph nodes: No enlarged lymph nodes. Urinary bladder: The bladder is thin walled. There is diffuse perivesicular fat stranding. Reproductive: Unremarkable as visualized. Bones/joints: Bones have a normal appearance. No acute fracture or suspicious bone lesion. Soft tissues: There is a moderate-sized fat containing right inguinal hernia. There is a small fat containing left inguinal hernia. IMPRESSION: 1. Perivesicular fat stranding which may be associated with acute cystitis. Please correlate with urinalysis. 2. Marked splenomegaly. 3. No other acute intra-abdominal findings. 4. Normal appendix. Dictated and Authenticated by: Becky Cano MD. Orderin Elpidio Dwyer MD
[2025-07-30 22:00] LABS: Troponin I 120 ng/L (<or=76)
[2025-07-30] MEDS: Normal Saline 1,000 ML 125 ML IV (22:11)
--- NOTE | 2025-07-30 22:27 | W.PM.HP.N ---
Date of service: 07/30/25 Time of Service: 22:00 Assessment and Plan Assessment and plan (1) Acute on chronic renal failure: Status: Acute Assessment and plan: Creatinine elevation with oliguria, acute on chronic urine retention with likely new UTI IV fluid bolus given in ED with NS maintenance Stopped NS for LR, gave 1L bolus and increased maintenance rate Strict monitoring of I/O 75 ml urine output on the floor, reportedlly 50 ml out in the ED (2) Urinary tract infection: Status: Acute Assessment and plan: UA with nitrites, LE Symptomatic with chills, tachycardia, HANNAH Ceftriaxone started in ED, continue Likely able to transition to PO antibiotics and DC if symptoms and urine output improve (3) Diabetes mellitus type 2: Status: Chronic Assessment and plan: Home regimen includes insulin, empagliflozin, metformin Continue basal insulin 10u HS, medium correctional Continue empagliflozin, consider NAGMA if HANNAH does not resolve Hold metformin (4) Lumbar stenosis: Status: Chronic Assessment and plan: Continue home baclofen (5) Obstructive sleep apnea syndrome: Status: Chronic Assessment and plan: Unclear if he has been using CPAP at home (6) Restless leg syndrome: Status: Chronic Assessment and plan: Continue home ropinirole (7) Hyperlipidemia: Assessment and plan: Continue home ezetimibe, fenofibrate (8) At high risk for venous thromboembolism: Status: Acute Assessment and plan: LMWH renal dosing History of Present Illness History of Present Illness Chief Complaint: dysuria Narrative: Kurtis Alanis is an 80 year old man presenting in the ED July 30 with 2 days of difficulty urinating. Patient reports subjective fevers with chills, sweating, flank pain. He has had to strain to urinate and little comes out. He has a history of kidney stones and has needed to have a barraza in place for extended periods of time, in the past. He denies chest pain, SOB, N/V/D. PMH: urinary retention, nephrolithiasis, CKD, L BKA, DM on insulin, HLD, restless legs, hypomagnesemia, GERD, chronic pain with cervical/thoracic myelopathy, diabetic neuropathy, bilateral hand numbness, QUETA, CAD with stent Patient recently seen by palliative care. Code status is full. In the ED, he was tachycardic 105, vitals otherwise unremarkable. EKG NSR. CBC with mild anemia, no leukocytosis. Elevated BUN 50, creatinine 2.0 against approximate 1.6 baseline, hyperglycemia 171, hypomagnesemia 1.7, troponinemia 119->127, elevated BNP 4135. UA suggestive of bacteriuria. He was given IV fluids and started on antibiotics. Not septic. He is admitted for observation for HANNAH and likely UTI. [facility] All Active Problems (Updated 07/31/25 @ 02:56 by Gibson Adan MD) At high risk for venous thromboembolism (Acute) Non-ST elevated myocardial infarction (Acute) Congestive heart failure (Chronic) Acute kidney injury (Acute) Urinary tract infection (Acute) Palliative care patient (Acute) History of cardioversion (Acute) 05/01/25 Unilateral below-knee amputation (Acute) Left Rotator cuff arthropathy of right shoulder (Acute) DEPO MEDROL 12/21/24 Ulcer of right lower extremity with fat layer exposed (Acute) Blister of right leg (Acute) Ulcer of left foot with necrosis of bone (Acute) CKD (chronic kidney disease), stage III (Acute) Transaminitis (Acute) Elevated CPK (Acute) Atherosclerosis of left lower extremity with ulceration (Acute) Diabetic foot infection (Acute) Atherosclerosis of artery of both lower extremities (Acute) Ulcer of left foot with fat layer exposed (Acute) Osteomyelitis of left foot (Chronic) Restless leg syndrome (Chronic) DVT (deep venous thrombosis) (Chronic) Venous ulcer-leg syndrome, bilateral (Acute) Onychogryphosis (Acute) Venous insufficiency of both lower extremities (Acute) Ulcer of right foot with fat layer exposed (Acute) Controlled type 2 diabetes mellitus with ulcer of toe (Acute) Atherosclerosis of upper [place] arteries of right leg with ulceration of ankle (Acute) Impacted cerumen, bilateral (Acute) Ulcer of extremity due to chronic venous insufficiency (Acute) Pneumonia (Acute) Nail dystrophy (Acute) Lumbar stenosis (Chronic) Carpal tunnel syndrome of left wrist (Acute) Bilateral hand numbness (Acute) Foot drop, bilateral (Acute) Left sided sciatica (Acute) Impairment of speech discrimination (Acute) Asymmetrical sensorineural hearing loss (Acute) Onychomycosis (Acute) DVT prophylaxis (Acute) Sepsis (Acute) Infection of total right knee replacement (Acute) S/p irrigation and debridement; poly exchange; arthrotomy repair DOS: 10/04/2021 Advance care planning (Acute) Acute on chronic renal failure (Acute) Bacteremia (Acute) Asymmetrical sensorineural hearing loss (Acute) History of total right knee replacement (Acute 01/16/21) First degree heart block (Acute) Cellulitis (Acute) History of total left knee replacement (TKR) (Acute 12/14/19) Dr. Wilson s/p debridement and poly exchange 02/10/20 Hypertension (Chronic) Tubular adenoma of colon (Acute 09/02/16) Tubulovillous adenoma polyp of colon (Chronic) Noted by colonoscopy. Chest pain, rule out acute myocardial infarction (Acute 11/01/13) Abnormal LFTs (Chronic) Secondary to fartty infiltrate of the liver. Diabetic renal disease (Chronic) Benign hypertension (Chronic) Obesity (Chronic) Benign prostatic hyperplasia (Chronic) Obstructive sleep apnea syndrome (Chronic) Nocturnal CPAP Hyperlipidemia (Chronic) Diabetes mellitus type 2 (Chronic) Since approximately 1997. On insulin thereapy. Last hemoglobin A1c 6.5% March 2013. 11-01-2013: Most recent hemoglobin A1c was 6.6 ? date. 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 to type 2 diabetes mellitus Type 2 diabetes mellitus treated with insulin Polypharmacy Pain in shoulder region Uses self-applied continuous glucose monitoring device Upper respiratory infection Cough Dysuria Pulmonary edema Burn of left index finger Peripheral vascular disease Burn of middle finger History of urinary system disease Constipation Diabetic neuropathy Renal insufficiency Low blood magnesium (11/01/13) Paresthesias Fatty infiltration of liver Erectile dysfunction Foot drop Unsteady gait History of removal of joint prosthesis of right knee due to infection Microalbuminuria Diabetic polyneuropathy Morbid obesity Sleep apnea BPH (benign prostatic hyperplasia) Myalgia Perennial allergic rhinitis Vertigo Palliative care patient Hearing loss Chronic lower back pain Osteoarthritis Venous insufficiency Sleep apnea with use of continuous positive airway pressure (CPAP) History of seizures as a child Hx of myocardial infarction 10/2011 STRESS TEST COMPLETED 11/29/2019 Hyperlipidemia CAD (coronary artery disease) Cellulitis RIGHT LOWER LEG Diabetes Arthritis Surgical History History of synovectomy Amputation toe Left 4th and 5th open ray amputation History of total left hip arthroplasty (07/29/23) Carpal tunnel syndrome of right wrist S/P ECTR: 10/28/2022 H/O total knee replacement left knee 12/14/2019, right knee 01/16/2021 History of tonsillectomy and adenoidectomy H/O heart artery stent X2 2014 colonoscopy (09/02/16) Family History Maternal Aunt Colon cancer Maternal Aunt Colon cancer Father , 70s Heart disease Mother Lung cancer Tetanus Brother Liver failure Alcohol use disorder Kidney disease Son , tractor accident Accident caused by farm tractor Social History Smoking/Tobacco Use Status: Never Smoking risk assessment performed?: Yes Alcohol Intake: never Drug use: Never Substance use type: does not use Housing: house Do you feel safe at home: Yes Do you feel safe in your relationship?: Yes Additional Social history: unable to assess to privately Meds Allergies and Home Medications Allergies Allergy/AdvReac Type Severity Reaction Status Date / Time daptomycin Allergy Unknown myalgias Unverified 07/30/25 20:08 amlodipine besylate (From AdvReac Mild edema Verified 07/30/25 20:08 Norvasc) enalapril maleate (From AdvReac Mild cough Verified 07/30/25 20:08 Vasotec) enalaprilat dihydrate (From AdvReac Mild cough Verified 07/30/25 20:08 Vasotec) pravastatin sodium (From AdvReac Mild myalgia Verified 07/30/25 20:08 Pravachol) from Lipitor rosuvastatin (From Crestor) AdvReac Mild Myalgia Verified 07/30/25 20:08 Home Medications ?Medication ?Instructions ?Recorded ?Confirmed ?Type magnesium oxide 400 mg (241.3 mg 800 mg PO DAILY 07/21/22 07/30/25 History magnesium) tablet fluticasone propionate 50 1 spray intranasal DAILY PRN nasal 05/28/23 07/30/25 History mcg/actuation nasal congestion spray,suspension AFO #1 ea 08/10/23 07/30/25 Rx aspirin 81 mg tablet,delayed 81 mg PO DAILY 09/08/23 07/30/25 History release pantoprazole 40 mg tablet,delayed 40 mg PO DAILY 09/23/23 07/30/25 History release empagliflozin 25 mg tablet 25 mg PO DAILY 12/25/23 07/30/25 History (Jardiance) ketoconazole 2 % topical cream 1 applic topical DAILY PRN 12/25/23 07/30/25 History acetaminophen 500 mg tablet 1,000 mg PO TID PRN 02/04/24 07/30/25 History baclofen 5 mg tablet 5 mg PO HS 02/04/24 07/30/25 History ferrous sulfate 325 mg (65 mg 325 mg PO DAILY 02/04/24 07/30/25 History iron) tablet (FeroSul) metformin 500 mg tablet 500 mg PO BID 02/04/24 07/30/25 History lidocaine 5 % topical ointment 1 applic topical QHS 04/07/24 07/30/25 History triamcinolone acetonide 0.1 % 1 applic topical DAILY 04/07/24 07/30/25 History topical ointment furosemide 40 mg tablet 40 mg PO DAILY 04/28/24 07/30/25 History gentamicin 0.1 % topical cream 1 applic topical QID #30 grams 07/20/24 07/30/25 Rx polyethylene glycol 3350 17 17 g PO DAILY PRN 09/20/24 07/30/25 History gram/dose oral powder (ClearLax) ropinirole 1 mg tablet 1 mg PO TID #270 tabs 11/15/24 07/30/25 Rx ropinirole 2 mg tablet 2 mg PO .nightly #90 tabs 11/15/24 07/30/25 Rx cholecalciferol (vitamin D3) 50 50 mcg PO DAILY 04/04/25 07/30/25 History mcg (2,000 unit) capsule cyanocobalamin (vitamin B-12) 1,000 mcg PO DAILY 04/04/25 07/30/25 History 1,000 mcg capsule doxazosin 4 mg tablet (Cardura) 4 mg PO BID 04/04/25 07/30/25 History gabapentin 300 mg capsule 300 mg PO TID 04/04/25 07/30/25 History insulin glargine 100 unit/mL 10 unit subcut QHS 04/04/25 07/30/25 History subcutaneous solution (Lantus U-100 Insulin) insulin lispro 100 unit/mL See Rx Instructions subcut 04/04/25 07/30/25 History subcutaneous pen (Humalog KwikPen .SLIDING SCALE (U-100) Insulin) ezetimibe 10 mg tablet 10 mg PO DAILY 06/12/25 07/30/25 History fenofibrate nanocrystallized 145 145 mg PO DAILY 06/12/25 07/30/25 History mg tablet Exam Narrative Exam Narrative: General: This is an elderly, obese man in no acute distress HEENT: Normocephalic, atraumatic CV: RRR Resp: CTAB Abd: NTND, +NBS, bilateral lower chest wall / flank tenderness, no CVAT MSK: voluntary motion x4 Neuro: awake, alert, no focal deficits Results Labs 07/30/25 20:23 07/30/25 20:23 Labs: Laboratory Results - last 24 hr 07/30/25 07/30/25 07/30/25 20:23 20:50 21:34 WBC 3.66 L RBC 4.51 Hgb 12.0 L Hct 37.3 L MCV 83 MCH 26.6 L MCHC 32.2 RDW 17.3 H Plt Count 132 MPV 9.4 Immature Gran % 0.3 Neutrophils % 84.4 Lymphocytes % 5.2 Monocytes % 9.8 Eosinophils % 0.0 Basophils % 0.3 Nucleated RBC % 0.0 Absolute Neutrophils 3.09 Absolute Lymphocytes 0.19 L Absolute Monocytes 0.36 Absolute Eosinophils 0.00 Absolute Basophils 0.01 VBG Lactate 1.9 Sodium 135 L Potassium 4.9 Chloride 98 Carbon Dioxide 28.2 Anion Gap 8.8 BUN 50 H Creatinine 2.0 H Est GFR (CKD-EPI 2020) 32.71 Glucose 171 H Calcium 9.0 Magnesium 1.7 L Total Bilirubin 0.7 AST 40 H ALT 29 Alkaline Phosphatase 92 Creatine Kinase 187 Troponin I 119 H* 120 H* NT-Pro-B Natriuret Pep 4135 H Total Protein 7.0 Albumin 3.4 Lipase 30 Urine Color Yellow Urine Clarity Cloudy Urine pH 6.5 Ur Specific [place] 1.010 Urine Protein 30 H Urine Ketones Negative Urine Blood Small H Urine Nitrite Positive H Urine Bilirubin Negative Urine Urobilinogen 1.0 H Ur Leukocyte Esterase Moderate H Urine RBC 3-5 H Urine WBC >50 H Ur Epithelial Cells Rare Urine Crystals Negative Urine Bacteria Many Urine Casts Negative Urine Mucus Negative Ur Culture Indicated? Yes Urine Glucose >=1000 H Last Vital Signs Temp 37.3 C 07/30/25 20:12 Pulse 91 H 07/30/25 22:01 Resp 24 07/30/25 20:12 BP 146/56 H 07/30/25 22:01 Pulse Ox 98 07/30/25 22:01 Time Spent Time spent with Patient: 40-54 minutes Time was spent: preparing to see the patient(eg.review tests), obtaining and/or reviewing separately otained hiistory, ordering medications,tests, procedures, referring, communicating with other health child care, indepentently interpreting results, counseling the patient and care coordination
--- NOTE | 2025-07-30 22:36 | W.PCEDHO ---
Registration Status: REG ER Primary Language: Preferred Language: Yi ED Information & Data Chief Complaint Urinary 07/30/25 20:12 Triage Note arrives via POV in 07/30/25 20:03 wheelchair, pt states he has been having difficulty urinating since yesterday with flank pain. C/o R leg pain, cold chills, shaking earlier today. Took ibuprofen around 330pm. pt is a diabetic. 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 due to type 2 diabetes mellitus Type 2 diabetes mellitus treated with insulin Polypharmacy Pain in shoulder region Uses self-applied continuous glucose monitoring device Upper respiratory infection Cough Dysuria Pulmonary edema Burn of left index finger Peripheral vascular disease Burn of middle finger History of urinary system disease Constipation Diabetic neuropathy Renal insufficiency Low blood magnesium (11/01/13) Paresthesias Fatty infiltration of liver Erectile dysfunction Foot drop Unsteady gait History of removal of joint prosthesis of right knee due to infection Microalbuminuria Diabetic polyneuropathy Morbid obesity Sleep apnea BPH (benign prostatic hyperplasia) Myalgia Perennial allergic rhinitis Vertigo Hearing loss Chronic lower back pain Osteoarthritis Venous insufficiency Sleep apnea with use of continuous positive airway pressure (CPAP) History of seizures as a child Hx of myocardial infarction Hyperlipidemia CAD (coronary artery disease) Cellulitis Diabetes Arthritis (Last Reviewed 07/25/25 @ 14:19 by Livier Liu NP) History of synovectomy Amputation toe History of total left hip arthroplasty (07/29/23) Carpal tunnel syndrome of right wrist H/O total knee replacement History of tonsillectomy and adenoidectomy H/O heart artery stent colonoscopy (09/02/16) Most Recent Vital Signs Temperature 37.3 C 07/30/25 20:12 Temperature Source Tympanic 07/30/25 20:12 Pulse 91 H 07/30/25 22:01 Respiratory Rate 24 07/30/25 20:12 Blood Pressure 146/56 H 07/30/25 22:01 Blood Pressure Mean 89 07/30/25 22:01 Blood Pressure Position Supine 07/30/25 20:12 Pulse Oximetry 98 07/30/25 22:01 Oxygen Delivery Method Room Air 07/30/25 20:12 Oxygen Flow Rate 0 07/30/25 20:12 Pain Level 0 07/30/25 20:12 Allergies daptomycin Allergy (Unknown, Unverified 07/30/25 20:08) myalgias amlodipine besylate (From Norvasc) Adverse Reaction (Mild, Verified 07/30/25 20:08) edema enalapril maleate (From Vasotec) Adverse Reaction (Mild, Verified 07/30/25 20:08) cough enalaprilat dihydrate (From Vasotec) Adverse Reaction (Mild, Verified 07/30/25 20:08) cough pravastatin sodium (From Pravachol) Adverse Reaction (Mild, Verified 07/30/25 20:08) myalgia from Lipitor rosuvastatin (From Crestor) Adverse Reaction (Mild, Verified 07/30/25 20:08) Myalgia Precautions Isolation Standard precaution 07/30/25 20:09 Active Medications Generic Name Dose Route Start Last Admin Trade Name Freq PRN Reason Stop Dose Admin Sodium Chloride 1,000 mls @ 125 mls/hr 07/30/25 21:15 07/30/25 22:11 Saline 1000ml Bag IV 125 mls/hr INFUSION HELEN Administration Iohexol 100 ml 07/30/25 21:15 07/30/25 21:04 Omnipaque 350 Mg/Ml 100 Ml Btl IJ 08/29/25 23:59 75 ml DIRECTED HELEN Administration Sodium Chloride 0 ml 07/30/25 21:02 07/30/25 21:03 Normal Saline Flush 10 Ml Syr IVP 10 ml PRN PRN Administration Sodium Chloride 50 ml 07/30/25 21:15 07/30/25 21:03 Normal Saline - Diluent 50 Ml Vial IJ 50 ml DIRECTED HELEN Administration IV IV Catheter Type [Right Peripheral IV Antecubital] IV Catheter Gauge [Right 18 Antecubital] Diet Orders Category Date Time Status Diabetes Consistent CHO [DIET] Nutrition 07/31/25 Breakfast Ordered Diagnostics 07/30/25 07/30/25 07/30/25 Range/Units 23:20 21:34 20:50 WBC (4.4-10.8) 10^3/uL RBC (4.36-5.78) 10^6/uL Hgb (13.5-17.5) g/dL Hct (40.0-50.0) % MCV (80-95) fL MCH (27.0-33.0) pg MCHC (32.0-36.0) % RDW (11.8-14.1) % Plt Count (130-400) 10^3/uL MPV (8.0-11.0) fL Immature Gran % % Neutrophils % % Lymphocytes % % Monocytes % % Eosinophils % % Basophils % % Nucleated RBC % (0.0-0.3) % Absolute Neutrophils (1.2-6.7) 10^3/uL Absolute Lymphocytes (1.2-3.4) 10^3/uL Absolute Monocytes (0.1-0.8) 10^3/uL Absolute Eosinophils (0.0-0.7) 10^3/uL Absolute Basophils (0.0-0.2) 10^3/uL VBG Lactate (<or=2.0) mmol/L Sodium (136-145) mmol/L Potassium (3.5-5.1) mmol/L Chloride (98-107) mmol/L Carbon Dioxide (21.0-32.0) mmol/L Anion Gap (3-11) mmol/L BUN (7-18) mg/dL Creatinine (0.70-1.30) mg/dL Est GFR (CKD-EPI 2020) (mL/min/1.73m2) Glucose (74-106) mg/dL Calcium (8.5-10.1) mg/dL Magnesium (1.8-2.4) mg/dL Total Bilirubin (0.2-1.0) mg/dL AST (15-37) U/L ALT (16-63) U/L Alkaline Phosphatase (46-116) U/L Creatine Kinase 187 (39-308) U/L Troponin I Pending 120 H* (<or=76) ng/L NT-Pro-B Natriuret Pep (<300) pg/mL Total Protein (6.4-8.2) g/dL Albumin (3.4-5.0) g/dL Lipase (<78) U/L Urine Color Yellow (Yellow) Urine Clarity Cloudy (Clear) Urine pH 6.5 (5-8) Ur Specific [employer] 1.010 (1.005-1.025) Urine Protein 30 H (Neg-Trace) mg/dL Urine Ketones Negative (Negative) mg/dL Urine Blood Small H (Negative) Urine Nitrite Positive H (Negative) Urine Bilirubin Negative (Negative) Urine Urobilinogen 1.0 H (Up to 0.2) mg/dL Ur Leukocyte Esterase Moderate H (Negative) Urine RBC 3-5 H (0-2) HPF Urine WBC >50 H (0-5) HPF Ur Epithelial Cells Rare (Negative) HPF Urine Crystals Negative (Negative) HPF Urine Bacteria Many (Negative) HPF Urine Casts Negative (Negative) LPF Urine Mucus Negative (Negative) Ur Culture Indicated? Yes Urine Glucose >=1000 H (Negative) mg/dL 07/30/25 Range/Units 20:23 WBC 3.66 L (4.4-10.8) 10^3/uL RBC 4.51 (4.36-5.78) 10^6/uL Hgb 12.0 L (13.5-17.5) g/dL Hct 37.3 L (40.0-50.0) % MCV 83 (80-95) fL MCH 26.6 L (27.0-33.0) pg MCHC 32.2 (32.0-36.0) % RDW 17.3 H (11.8-14.1) % Plt Count 132 (130-400) 10^3/uL MPV 9.4 (8.0-11.0) fL Immature Gran % 0.3 % Neutrophils % 84.4 % Lymphocytes % 5.2 % Monocytes % 9.8 % Eosinophils % 0.0 % Basophils % 0.3 % Nucleated RBC % 0.0 (0.0-0.3) % Absolute Neutrophils 3.09 (1.2-6.7) 10^3/uL Absolute Lymphocytes 0.19 L (1.2-3.4) 10^3/uL Absolute Monocytes 0.36 (0.1-0.8) 10^3/uL Absolute Eosinophils 0.00 (0.0-0.7) 10^3/uL Absolute Basophils 0.01 (0.0-0.2) 10^3/uL VBG Lactate 1.9 (<or=2.0) mmol/L Sodium 135 L (136-145) mmol/L Potassium 4.9 (3.5-5.1) mmol/L Chloride 98 (98-107) mmol/L Carbon Dioxide 28.2 (21.0-32.0) mmol/L Anion Gap 8.8 (3-11) mmol/L BUN 50 H (7-18) mg/dL Creatinine 2.0 H (0.70-1.30) mg/dL Est GFR (CKD-EPI 2020) 32.71 (mL/min/1.73m2) Glucose 171 H (74-106) mg/dL Calcium 9.0 (8.5-10.1) mg/dL Magnesium 1.7 L (1.8-2.4) mg/dL Total Bilirubin 0.7 (0.2-1.0) mg/dL AST 40 H (15-37) U/L ALT 29 (16-63) U/L Alkaline Phosphatase 92 (46-116) U/L Creatine Kinase (39-308) U/L Troponin I 119 H* (<or=76) ng/L NT-Pro-B Natriuret Pep 4135 H (<300) pg/mL Total Protein 7.0 (6.4-8.2) g/dL Albumin 3.4 (3.4-5.0) g/dL Lipase 30 (<78) U/L Urine Color (Yellow) Urine Clarity (Clear) Urine pH (5-8) Ur Specific [employer] (1.005-1.025) Urine Protein (Neg-Trace) mg/dL Urine Ketones (Negative) mg/dL Urine Blood (Negative) Urine Nitrite (Negative) Urine Bilirubin (Negative) Urine Urobilinogen (Up to 0.2) mg/dL Ur Leukocyte Esterase (Negative) Urine RBC (0-2) HPF Urine WBC (0-5) HPF Ur Epithelial Cells (Negative) HPF Urine Crystals (Negative) HPF Urine Bacteria (Negative) HPF Urine Casts (Negative) LPF Urine Mucus (Negative) Ur Culture Indicated? Urine Glucose (Negative) mg/dL 07/30/25 21:34 Blood Culture - Pending Blood 07/30/25 20:50 Urine Culture - Pending Urine - Reflex from Ua 07/30/25 20:55 Blood Culture - Pending Blood [id number] Documentation Fingerstick Glucose Start: 07/30/25 20:10 Freq: Status: Complete Protocol: Activity Type Activity Date Activity User E-sign Co-sign Detail Recorded Client Recorded Date Recorded By Document 07/30/25 20:09 BKG DAEMPANCHITO(3) [id number] 07/30/25 20:10 BKG DAEMON(4) Intake and Output - 24 Hour Total 07/30/25 19:56 thru 07/30/25 22:10 Intake Total 50 Output Total 50 Balance 0 Weight 113.398 kg Intake: IV 50 Output: Urine 50 Falls Risk Assessment History of Falls Previous History 07/30/25 20:09 Contributing Factors Impairments,Incontinence, 07/30/25 20:09 Medications Ambulatory Aids Uses ambulatory device + 07/30/25 20:09 Tubes/Lines With any additional score 07/30/25 20:09 Gait Evaluation W/any additional score 07/30/25 20:09 Cognition No cognitive impairment 07/30/25 20:09 Fall Total Score 94 07/30/25 20:09 Level of Risk Maximum Risk 07/30/25 20:09 v v v v v v v v v Sending and/or Receiving Nurses: Please use comment section below to note any information pertinent to the patient hand-off not included above. Information / Comments: report received from ED. NS at 125ml/h running. L BKA. Stable. Report received from: Reyes RENAE RN
[2025-07-30] MEDS: Acetaminophen 325 MG TAB 650 MG PO (23:03)
[2025-07-30] MEDS: Lactated Ringers 1,000 ML 1000 ML IV (23:18)
[2025-07-30] MEDS: rOPINIRole 1 MG TAB 2 MG PO (23:26)
[2025-07-30] MEDS: Baclofen 10 MG TAB 5 MG PO (23:26)
[2025-07-31 00:26] LABS: Troponin I 127 ng/L (<or=76)
[2025-07-31] MEDS: Lactated Ringers 1,000 ML 150 ML IV ×4 (00:26→23:38)
[2025-07-31 06:59] LABS: Abs Immature Grans 0.05 10^3/uL (0.0-0.06); HCT 36.0 % (40.0-50.0); HGB 11.6 g/dL (13.5-17.5); Immature Grans % 1.3 %; MCH 26.1 pg (27.0-33.0); MCHC 32.2 % (32.0-36.0); MCV 81 fL (80-95); MPV 10.0 fL (8.0-11.0); Platelet Count 120 10^3/uL (130-400); RBC 4.44 10^6/uL (4.36-5.78); RDW 17.5 % (11.8-14.1); RDW-SD 51.3 fL; WBC 3.88 10^3/uL (4.4-10.8)
[2025-07-31 07:31] VITALS: BP 126/74; PULSE 91; RESP 17; TEMP 36.7; O2SAT 96
[2025-07-31 07:33] LABS: ALT 27 U/L (16-63); AST 34 U/L (15-37); Albumin 2.9 g/dL (3.4-5.0); Alkaline Phosphatase 76 U/L (46-116); Anion Gap 10.2 mmol/L (3-11); BUN 44 mg/dL (7-18); Bilirubin, Total 0.6 mg/dL (0.2-1.0); CO2 25.8 mmol/L (21.0-32.0); Calcium 8.8 mg/dL (8.5-10.1); Chloride 100 mmol/L (98-107); Estimated GFR 37.12 (mL/min/1.73m2); Glucose 139 mg/dL (74-106); Magnesium 1.8 mg/dL (1.8-2.4); Potassium 4.2 mmol/L (3.5-5.1); Sodium 136 mmol/L (136-145); Total Protein 6.3 g/dL (6.4-8.2)
[2025-07-31 07:44] LABS: Troponin I 201 ng/L (<or=76)
[2025-07-31] MEDS: Insulin Aspart 300 UNITS/3 ML PEN SC ×3 (08:12→17:19)
[2025-07-31] MEDS: Enoxaparin 40 MG/0.4 ML SYR SC (08:12)
[2025-07-31] MEDS: Aspirin E.C. 81 MG TABEC PO (08:13)
[2025-07-31] MEDS: Gabapentin 300 MG CAP PO ×3 (08:13→20:09)
[2025-07-31] MEDS: Normal Saline Flush 10 ML SYR IVP ×2 (08:13→20:09)
[2025-07-31] MEDS: Empaglifozin 25 MG TAB PO (08:13)
[2025-07-31] MEDS: Furosemide 40 MG TAB PO (08:13)
[2025-07-31] MEDS: Ezetimibe 10 MG TAB PO (08:13)
[2025-07-31] MEDS: Pantoprazole 40 MG TABCR PO (08:13)
--- NOTE | 2025-07-31 09:46 | RESPIRATORY ---
Pt advised he still uses ResMed AirSense 11 CPAP machine at home but doesn't have it with him at the hospital. RT asked if there was someone that would be able to bring the home unit in if he is to remain admitted today and he advised he will be fine without it (has no interest in using hospital NIV).
[2025-07-31] MEDS: Polyethylene Glycol 3350 17 GM PACKET PO (11:12)
[2025-07-31] MEDS: rOPINIRole 1 MG TAB PO ×3 (12:20→18:24)
[2025-07-31] MEDS: Baclofen 10 MG TAB 5 MG PO (20:08)
[2025-07-31] MEDS: rOPINIRole 1 MG TAB 2 MG PO (20:09)
[2025-07-31] MEDS: cefTRIAXone 2 GM/50 ML BAG IVPB (20:09)
[2025-07-31] MEDS: Insulin Glargine 300 UNITS/3 ML PEN 10 UNITS SC (23:38)
[2025-08-01] MEDS: Lactated Ringers 1,000 ML 150 ML IV ×2 (06:18→12:51)
[2025-08-01 06:51] LABS: Abs Immature Grans 0.03 10^3/uL (0.0-0.06); HCT 34.3 % (40.0-50.0); HGB 11.0 g/dL (13.5-17.5); Immature Grans % 0.9 %; MCH 26.4 pg (27.0-33.0); MCHC 32.1 % (32.0-36.0); MCV 82 fL (80-95); MPV 9.7 fL (8.0-11.0); Platelet Count 115 10^3/uL (130-400); RBC 4.17 10^6/uL (4.36-5.78); RDW 17.7 % (11.8-14.1); RDW-SD 52.8 fL; WBC 3.35 10^3/uL (4.4-10.8)
[2025-08-01] MEDS: Ezetimibe 10 MG TAB PO (07:33)
[2025-08-01] MEDS: Aspirin E.C. 81 MG TABEC PO (07:33)
[2025-08-01] MEDS: Enoxaparin 40 MG/0.4 ML SYR SC (07:33)
[2025-08-01] MEDS: Furosemide 40 MG TAB PO (07:34)
[2025-08-01] MEDS: Pantoprazole 40 MG TABCR PO (07:34)
[2025-08-01] MEDS: Empaglifozin 25 MG TAB PO (07:34)
[2025-08-01] MEDS: Gabapentin 300 MG CAP PO ×3 (07:34→19:56)
[2025-08-01] MEDS: Polyethylene Glycol 3350 17 GM PACKET PO ×2 (07:44→19:56)
[2025-08-01] MEDS: Fluticasone NASAL SPRAY 16 GM BTL NS (07:44)
[2025-08-01 07:47] VITALS: BP 124/73; PULSE 80; RESP 18; TEMP 36.6; O2SAT 99
[2025-08-01 07:55] LABS: ALT 25 U/L (16-63); AST 34 U/L (15-37); Albumin 2.7 g/dL (3.4-5.0); Alkaline Phosphatase 74 U/L (46-116); Anion Gap 7.6 mmol/L (3-11); BUN 39 mg/dL (7-18); Bilirubin, Total 0.5 mg/dL (0.2-1.0); CO2 27.4 mmol/L (21.0-32.0); Calcium 8.9 mg/dL (8.5-10.1); Chloride 100 mmol/L (98-107); Estimated GFR 39.75 (mL/min/1.73m2); Glucose 112 mg/dL (74-106); Magnesium 1.7 mg/dL (1.8-2.4); Potassium 4.2 mmol/L (3.5-5.1); Sodium 135 mmol/L (136-145); Total Protein 6.1 g/dL (6.4-8.2)
--- NOTE | 2025-08-01 08:43 | PDOC.CMIN ---
Date of service: 08/01/25 Time of Service: 08:43 Care Management Initial Assmt Initial Assessment Reason for Hospitalization: HANNAH Functional Status/Living Situation Patient Presentation: Kurtis wasitting up in a chair when CM met with him. He was pleasant in interaction and easily engaged with CM. Kurtis lives in a single family home in [place] with his daughter Amrita and son-in-law Rafael. He explained that they live close by but are staying with him for the time being to help him out. Their daughter is staying at their home at the moment. Kurtis had one other child who was killed in a tractor accident years ago. He has 2 grandchildren, a grandaughter in [place] and his grandson who just got this weekend and will be living in [place] Kurtis needs some assistance with ADLs, He has had a left BKA and continues to have non-healing wounds on his RLE. He has a walker, shower chair and 3 wheelchairs including a new motorized one. He receives home health services for PT and RN which will be resumed at discharge. 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) Instrumental Activities of Daily Living (ADLs): Independent Medications Medication Management: No Issues/Barriers identified Physical Functioning/Mobility Assistive Device: wheelchair,walker Advance Directives Advance Directives: Do you have an Advance Directive: Y 04/19/21, 11:16 AD On File at [facility]: Y 04/19/21, 11:16 Date Asked 10/06/24 10/06/24, 12:06 AD Date Reviewed 07/30/25 07/30/25, 22:39 COLST On File at [facility] No 09/27/21, 16:52 COLST Date Scanned Code Status Resuscitation Status Full Code Insurance Coverage/Financial Issues Insurance: / Medicare Advantage Care Team Visit Care Team Role Provider Type Guy Desai MD MD [facility] STAFF PHYSICIAN Cameron Mcarthur MD Primary Care Provider NON-[facility] STAFF PHYSICIAN Diana Tripathi RDN, [facility] Other Providers BUSINESS CONTINUITY SPECIALIST Kodak Carmona RDN Other Providers BUSINESS CONTINUITY SPECIALIST JOURDAN Dailey Emergency Provider [employer] Gibson Adan MD Admit Provider [facility] STAFF PHYSICIAN Attending Provider Discharge Potential Discharge Needs: PCP F/U Appt Anticipated Barriers to Discharge: None Identified Patient/Family Education Needs: Review discharge instructions, discuss Ask Me Three Transportation: Private vehicle Plan: Anticipate Kurtis will be discharged home with a resumption of home health services for PT and RN, when medically cleared. He will follow up with his PCP and plan of care and transport with family. CM will follow and continue to support discharge planning needs. Social Determinants of Health Screening Social Determinants of health last assessed in clinic: 08/01/25 Will the Patient Participate in the Screening?: Yes Do you worry about having a steady place to live?: no Problems where you live: no known problems In the past 12 months, have you had to go without electric, gas, oil or water in your home?: no 1. Within the past 12 months, we worried whether our food would run out before we got money to buy more.: Never true 2. Within the past 12 months, the food we bought just didn't last and we didn't have money to get more.: Never true Has lack of transportation kept you from medical appointments or from doing things needed for daily living?: no Has anyone in your life made you feel unsafe or unsupported?: no How hard is it for you to pay for the very basics like food, housing, medical care, and heating? Would you say it is:: Not hard at all Do you want help finding or keeping work or a job?: I do not need or want help If for any reason you need help with day-to-day activities such as bathing, preparing meals, shopping, managing finances, etc., do you get the help you need?: I don?t need any help How often do you feel lonely or isolated from those around you?: Never Do you speak a language other than Senegalese at home?: No Does the patient want assistance with any of the above?: No PFSH All Active Problems (Updated 07/31/25 @ 02:56 by Gibson Adan MD) At high risk for venous thromboembolism (Acute) Non-ST elevated myocardial infarction (Acute) Congestive heart failure (Chronic) Acute kidney injury (Acute) Urinary tract infection (Acute) Palliative care patient (Acute) History of cardioversion (Acute) 05/01/25 Unilateral below-knee amputation (Acute) Left Rotator cuff arthropathy of right shoulder (Acute) DEPO MEDROL 12/21/24 Ulcer of right lower extremity with fat layer exposed (Acute) Blister of right leg (Acute) Ulcer of left foot with necrosis of bone (Acute) CKD (chronic kidney disease), stage III (Acute) Transaminitis (Acute) Elevated CPK (Acute) Atherosclerosis of left lower extremity with ulceration (Acute) Diabetic foot infection (Acute) Atherosclerosis of artery of both lower extremities (Acute) Ulcer of left foot with fat layer exposed (Acute) Osteomyelitis of left foot (Chronic) Restless leg syndrome (Chronic) DVT (deep venous thrombosis) (Chronic) Venous ulcer-leg syndrome, bilateral (Acute) Onychogryphosis (Acute) Venous insufficiency of both lower extremities (Acute) Ulcer of right foot with fat layer exposed (Acute) Controlled type 2 diabetes mellitus with ulcer of toe (Acute) Atherosclerosis of [place] arteries of right leg with ulceration of ankle (Acute) Impacted cerumen, bilateral (Acute) Ulcer of extremity due to chronic venous insufficiency (Acute) Pneumonia (Acute) Nail dystrophy (Acute) Lumbar stenosis (Chronic) Carpal tunnel syndrome of left wrist (Acute) Bilateral hand numbness (Acute) Foot drop, bilateral (Acute) Left sided sciatica (Acute) Impairment of speech discrimination (Acute) Asymmetrical sensorineural hearing loss (Acute) Onychomycosis (Acute) DVT prophylaxis (Acute) Sepsis (Acute) Infection of total right knee replacement (Acute) S/p irrigation and debridement; poly exchange; arthrotomy repair DOS: 10/04/2021 Advance care planning (Acute) Acute on chronic renal failure (Acute) Bacteremia (Acute) Asymmetrical sensorineural hearing loss (Acute) History of total right knee replacement (Acute 01/16/21) First degree heart block (Acute) Cellulitis (Acute) History of total left knee replacement (TKR) (Acute 12/14/19) Dr. Wilson s/p debridement and poly exchange 02/10/20 Hypertension (Chronic) Tubular adenoma of colon (Acute 09/02/16) Tubulovillous adenoma polyp of colon (Chronic) Noted by colonoscopy. Chest pain, rule out acute myocardial infarction (Acute 11/01/13) Abnormal LFTs (Chronic) Secondary to fartty infiltrate of the liver. Diabetic renal disease (Chronic) Benign hypertension (Chronic) Obesity (Chronic) Benign prostatic hyperplasia (Chronic) Obstructive sleep apnea syndrome (Chronic) Nocturnal CPAP Hyperlipidemia (Chronic) Diabetes mellitus type 2 (Chronic) Since approximately 1997. On insulin thereapy. Last hemoglobin A1c 6.5% March 2013. 11-01-2013: Most recent hemoglobin A1c was 6.6 ? date. 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 to type 2 diabetes mellitus Type 2 diabetes mellitus treated with insulin Polypharmacy Pain in shoulder region Uses self-applied continuous glucose monitoring device Upper respiratory infection Cough Dysuria Pulmonary edema Burn of left index finger Peripheral vascular disease Burn of middle finger History of urinary system disease Constipation Diabetic neuropathy Renal insufficiency Low blood magnesium (11/01/13) Paresthesias Fatty infiltration of liver Erectile dysfunction Foot drop Unsteady gait History of removal of joint prosthesis of right knee due to infection Microalbuminuria Diabetic polyneuropathy Morbid obesity Sleep apnea BPH (benign prostatic hyperplasia) Myalgia Perennial allergic rhinitis Vertigo Palliative care patient Hearing loss Chronic lower back pain Osteoarthritis Venous insufficiency Sleep apnea with use of continuous positive airway pressure (CPAP) History of seizures as a child Hx of myocardial infarction 10/2011 STRESS TEST COMPLETED 11/29/2019 Hyperlipidemia CAD (coronary artery disease) Cellulitis RIGHT LOWER LEG Diabetes Arthritis Surgical History History of synovectomy Amputation toe Left 4th and 5th open ray amputation History of total left hip arthroplasty (07/29/23) Carpal tunnel syndrome of right wrist S/P ECTR: 10/28/2022 H/O total knee replacement left knee 12/14/2019, right knee 01/16/2021 History of tonsillectomy and adenoidectomy H/O heart artery stent X2 2014 colonoscopy (09/02/16) Family History Maternal Aunt Colon cancer Maternal Aunt Colon cancer Father , 70s Heart disease Mother Lung cancer Tetanus Brother Liver failure Alcohol use disorder Kidney disease Son , tractor accident Accident caused by farm tractor Social History Smoking/Tobacco Use Status: Never Smoking risk assessment performed?: Yes Alcohol Intake: never Drug use: Never Substance use type: does not use Housing: house Do you feel safe at home: Yes Do you feel safe in your relationship?: Yes Additional Social history: unable to assess to privately
[2025-08-01] MEDS: rOPINIRole 1 MG TAB PO ×3 (11:49→18:04)
--- NOTE | 2025-08-01 14:36 | NUR.NOTE ---
Wound care performed
--- NOTE | 2025-08-01 17:05 | W.PM.PROGNOT ---
Date of Service Date of service: 08/01/25 Time of Service: 17:05 Assessment and Plan Assessment and plan (1) Acute on chronic renal failure: Status: Acute Assessment and plan: Presented with creatinine elevation with oliguria, suspected likely d/t UTI, dehydration, on diuretics Improved after receiving IV hydration and now below baseline stop IV fluids Barraza catheter had been placed for accurate I&O, will discontinue for voiding trial (2) Urinary tract infection: Status: Acute Assessment and plan: Urine culture growing gram negative rods, ID and sensitivities pending Continue ceftriaxone day 2 (3) Diabetes mellitus type 2: Status: Chronic Assessment and plan: Home regimen includes insulin, empagliflozin, metformin Continue basal insulin 10u HS, medium correctional Continue empagliflozin, Holding metformin in setting of HANNAH, will likely resume at discharge (4) Ulcer of right lower extremity with fat layer exposed: Status: Acute Assessment and plan: Was being followed by home health nursing for dressing changes Wound care consult will be placed Patient inquiring about hyperbaric therapy (5) Lumbar stenosis: Status: Chronic Assessment and plan: Continue home baclofen (6) Obstructive sleep apnea syndrome: Status: Chronic Assessment and plan: home cpap (7) Restless leg syndrome: Status: Chronic Assessment and plan: Continue home ropinirole (8) Hyperlipidemia: Assessment and plan: Continue home ezetimibe, fenofibrate (9) At high risk for venous thromboembolism: Status: Acute Assessment and plan: LMWH renal dosing (10) Constipation: Status: Acute Assessment and plan: bowel management discussed with DR Desai Subjective Subjective Patient reports: tolerating liquids well, tolerating a regular diet and afebrile; denies shortness of breath Interval history since last seen: continues to have barraza to gravity drainage putting out large amounts clear yellow urine taking in good oral intake reporting constipation this morning, relieved after one dose of miralax but still feeling mildly constipated. Exam Narrative Exam Narrative: Elderly male of stated age no acute distress head is atraumatic eyes nonicteric noninjected oral mucosa is slightly dry neck full range of motion no JVD cardiovascular regular rate and rhythm respirations even and unlabored abdomen is obese round soft nontender below the knee amputation on the left with stump not visualized stump pick pulling machine tender intact. right lower extremity with compression hose intact dressing is clean dry and intact. Neurologic he is awake alert oriented no focal deficits psychiatric appropriate mood and affect Barraza to gravity drainage draining light yellow clear urine Objective Last Vital Signs Temp 36.6 C 08/01/25 07:47 Pulse 80 08/01/25 07:47 Resp 18 08/01/25 07:47 BP 124/73 08/01/25 07:47 Pulse Ox 99 08/01/25 07:47 Laboratory Results - last 24 hr 08/01/25 06:25 WBC 3.35 L RBC 4.17 L Hgb 11.0 L Hct 34.3 L MCV 82 MCH 26.4 L MCHC 32.1 RDW 17.7 H Plt Count 115 L MPV 9.7 Immature Gran % 0.9 Neutrophils % 79.4 Lymphocytes % 2.7 Monocytes % 11.9 Eosinophils % 4.5 Basophils % 0.6 Nucleated RBC % 0.0 Absolute Neutrophils 2.66 Absolute Lymphocytes 0.09 L Absolute Monocytes 0.40 Absolute Eosinophils 0.15 Absolute Basophils 0.02 Sodium 135 L Potassium 4.2 Chloride 100 Carbon Dioxide 27.4 Anion Gap 7.6 BUN 39 H Creatinine 1.7 H Est GFR (CKD-EPI 2020) 39.75 Glucose 112 H Calcium 8.9 Magnesium 1.7 L Total Bilirubin 0.5 AST 34 ALT 25 Alkaline Phosphatase 74 Total Protein 6.1 L Albumin 2.7 L Time Spent with Patient Time Spent with Patient: 35-49 minutes Time was spent: preparing to see the patient(eg.review tests), obtaining and/or reviewing separately otained hiistory, ordering medications,tests, procedures, indepentently interpreting results and counseling the patient
[2025-08-01] MEDS: Insulin Aspart 300 UNITS/3 ML PEN SC (17:19)
[2025-08-01 19:17] VITALS: BP 131/69; PULSE 83; RESP 18; TEMP 36.8; O2SAT 97
[2025-08-01] MEDS: Baclofen 10 MG TAB 5 MG PO (19:55)
[2025-08-01] MEDS: rOPINIRole 1 MG TAB 2 MG PO (19:55)
[2025-08-01] MEDS: cefTRIAXone 2 GM/50 ML BAG IVPB (19:57)
[2025-08-01] MEDS: Insulin Glargine 300 UNITS/3 ML PEN 10 UNITS SC (22:26)
[2025-08-01] MEDS: guaiFENesin 200 MG/10 ML CUP PO (23:04)
[2025-08-02 06:24] LABS: Abs Immature Grans 0.04 10^3/uL (0.0-0.06); HCT 36.1 % (40.0-50.0); HGB 11.5 g/dL (13.5-17.5); Immature Grans % 1.0 %; MCH 25.8 pg (27.0-33.0); MCHC 31.9 % (32.0-36.0); MCV 81 fL (80-95); MPV 9.7 fL (8.0-11.0); Platelet Count 124 10^3/uL (130-400); RBC 4.45 10^6/uL (4.36-5.78); RDW 17.2 % (11.8-14.1); RDW-SD 50.6 fL; WBC 3.87 10^3/uL (4.4-10.8)
[2025-08-02 06:54] LABS: ALT 26 U/L (16-63); AST 38 U/L (15-37); Albumin 3.1 g/dL (3.4-5.0); Alkaline Phosphatase 96 U/L (46-116); Anion Gap 6.1 mmol/L (3-11); BUN 34 mg/dL (7-18); Bilirubin, Total 0.6 mg/dL (0.2-1.0); CO2 27.9 mmol/L (21.0-32.0); Calcium 9.3 mg/dL (8.5-10.1); Chloride 101 mmol/L (98-107); Estimated GFR 39.75 (mL/min/1.73m2); Glucose 114 mg/dL (74-106); Magnesium 1.9 mg/dL (1.8-2.4); Potassium 4.2 mmol/L (3.5-5.1); Sodium 135 mmol/L (136-145); Total Protein 6.8 g/dL (6.4-8.2)
[2025-08-02 08:15] VITALS: BP 119/59; PULSE 80; TEMP 36.4; O2SAT 95
[2025-08-02] MEDS: Insulin Aspart 300 UNITS/3 ML PEN SC (08:50)
[2025-08-02] MEDS: Empaglifozin 25 MG TAB PO (08:51)
[2025-08-02] MEDS: Pantoprazole 40 MG TABCR PO (08:51)
[2025-08-02] MEDS: Gabapentin 300 MG CAP PO ×2 (08:51→13:46)
[2025-08-02] MEDS: Enoxaparin 40 MG/0.4 ML SYR SC (08:51)
--- NOTE | 2025-08-02 08:51 | PDOC.CMPRO ---
Date of service: 08/02/25 Time of Service: 08:51 Care Management Progress Note Discharge Potential Discharge Needs: PCP F/U Appt Anticipated Barriers to Discharge: None Identified Patient/Family Education Needs: Review discharge instructions, discuss Ask Me Three Transportation: Private vehicle Plan: Anticipate Kurtis will be discharged home with a resumption of home health services for PT and RN, when medically cleared. He will follow up with his PCP and plan of care and transport with family. CM will follow and continue to support discharge planning needs. Social Determinants of Health Screening Social Determinants of health last assessed in clinic: 08/01/25 Will the Patient Participate in the Screening?: Yes Do you worry about having a steady place to live?: no Problems where you live: no known problems In the past 12 months, have you had to go without electric, gas, oil or water in your home?: no Has lack of transportation kept you from medical appointments or from doing things needed for daily living?: no Has anyone in your life made you feel unsafe or unsupported?: no How hard is it for you to pay for the very basics like food, housing, medical care, and heating? Would you say it is:: Not hard at all Do you want help finding or keeping work or a job?: I do not need or want help If for any reason you need help with day-to-day activities such as bathing, preparing meals, shopping, managing finances, etc., do you get the help you need?: I don?t need any help How often do you feel lonely or isolated from those around you?: Never Do you speak a language other than Mongolian at home?: No Does the patient want assistance with any of the above?: No
[2025-08-02] MEDS: Ezetimibe 10 MG TAB PO (08:52)
[2025-08-02] MEDS: Furosemide 40 MG TAB PO (08:52)
[2025-08-02] MEDS: Aspirin E.C. 81 MG TABEC PO (08:52)
[2025-08-02] MEDS: Polyethylene Glycol 3350 17 GM PACKET PO (08:56)
[2025-08-02] MEDS: Fluticasone NASAL SPRAY 16 GM BTL NS (09:01)
--- NOTE | 2025-08-02 09:14 | W.PM.PROGNOT ---
Date of Service Date of service: 08/02/25 Time of Service: 09:15 Assessment and Plan Assessment and plan (1) Acute on chronic renal failure: Status: Acute Assessment and plan: Presented with creatinine elevation with oliguria, suspected likely d/t UTI, dehydration, on diuretics Improved after receiving IV hydration and now below baseline stop IV fluids Last catheter had been placed for accurate I&O, will discontinue for voiding trial (2) Urinary tract infection: Status: Acute Assessment and plan: Urine culture growing gram negative rods, ID and sensitivities pending Continue ceftriaxone day 2 (3) Diabetes mellitus type 2: Status: Chronic Assessment and plan: Home regimen includes insulin, empagliflozin, metformin Continue basal insulin 10u HS, medium correctional Continue empagliflozin, Holding metformin in setting of HANNAH, will likely resume at discharge (4) Ulcer of right lower extremity with fat layer exposed: Status: Acute Assessment and plan: Was being followed by home health nursing for dressing changes Wound care consult will be placed Patient inquiring about hyperbaric therapy (5) Lumbar stenosis: Status: Chronic Assessment and plan: Continue home baclofen (6) Obstructive sleep apnea syndrome: Status: Chronic Assessment and plan: home cpap (7) Restless leg syndrome: Status: Chronic Assessment and plan: Continue home ropinirole (8) Hyperlipidemia: Assessment and plan: Continue home ezetimibe, fenofibrate (9) At high risk for venous thromboembolism: Status: Acute Assessment and plan: LMWH renal dosing (10) Constipation: Status: Acute Assessment and plan: bowel management discussed with DR Desai (11) Elevated brain natriuretic peptide (BNP) level: Status: Acute Objective Last Vital Signs Temp 36.4 C L 08/02/25 08:15 Pulse 80 08/02/25 08:15 Resp 18 08/01/25 19:17 BP 119/59 L 08/02/25 08:15 Pulse Ox 95 08/02/25 08:15 Laboratory Results - last 24 hr 08/02/25 05:58 WBC 3.87 L RBC 4.45 Hgb 11.5 L Hct 36.1 L MCV 81 MCH 25.8 L MCHC 31.9 L RDW 17.2 H Plt Count 124 L MPV 9.7 Immature Gran % 1.0 Neutrophils % 79.6 Lymphocytes % 2.8 Monocytes % 10.6 Eosinophils % 5.7 Basophils % 0.3 Nucleated RBC % 0.0 Absolute Neutrophils 3.08 Absolute Lymphocytes 0.11 L Absolute Monocytes 0.41 Absolute Eosinophils 0.22 Absolute Basophils 0.01 Sodium 135 L Potassium 4.2 Chloride 101 Carbon Dioxide 27.9 Anion Gap 6.1 BUN 34 H Creatinine 1.7 H Est GFR (CKD-EPI 2020) 39.75 Glucose 114 H Calcium 9.3 Magnesium 1.9 Total Bilirubin 0.6 AST 38 H ALT 26 Alkaline Phosphatase 96 Total Protein 6.8 Albumin 3.1 L
--- NOTE | 2025-08-02 10:39 | DSE_ITS ---
Date of service: 08/02/25 Time of Service: 16:20 DS: Diagnosis Discharge Diagnosis (1) Acute on chronic renal failure: Status: Acute (2) Urinary tract infection: Status: Acute (3) Diabetes mellitus type 2: Status: Chronic (4) Ulcer of right lower extremity with fat layer exposed: Status: Acute (5) Lumbar stenosis: Status: Chronic (6) Obstructive sleep apnea syndrome: Status: Chronic (7) Restless leg syndrome: Status: Chronic (8) Hyperlipidemia: (9) At high risk for venous thromboembolism: Status: Acute (10) Constipation: Status: Acute (11) Elevated brain natriuretic peptide (BNP) level: Status: Acute Discharge Plan Disposition Patient Disposition: Home W/Home Health Services Condition: Improving Discharge Details Reason For Visit: HANNAH Admit Date/Time: 07/30/25 22:17 Admit Provider: Gibson Adan Attending Provider: Gibson Adan Primary Care Provider: Cameron Mcarthur Hospital Course Hospital Course: This 80 year old patient with a past medical history significant for urinary retention, nephrolithiasis, HFrEF with LVEF 40%, CKD, L BKA, chronic right LE wound, DM on insulin, HLD, restless legs, hypomagnesemia, GERD, chronic pain with cervical/thoracic myelopathy, diabetic neuropathy, bilateral hand numbness, QUETA, CAD with stent man presented in the ED on July 30 with 2 days of difficulty urinating with subjective fevers chills, sweating and flank pain. Work-up was positive stable mild anemia, UTI as per UA , HANNAH on CKD, hypomagnesemia. Treatment initiated with indwelling urinary catheter, ceftriaxone and IVF in the ED. Imaging was neagtive for hydronephrosis, nephrolithiasis but showed mild bladder wall thickening with mild infiltration in the surrounding soft tissues. EKG NSR with troponin at 119 then 127 w/o ACS symptoms with BNP at 4135. The patient was admitted by the hospitalist to the medical surgical floor observation for HANNAH and likely UTI. Doxazosin dose incr eased. The patient was subsequently able to void w/o further urinary retention s/p discontinuation of Barraza catheter. Wound consult: Echocardiogram completed with preliminary findings pointing to reduced LVEF; official report pending. GDMT initiated with low dose Entresto which was well tolerated. Urine culture grew Serratia marcescens and the patient will be discharged home on oral cefpodoxime. The patient will benefit form home health nursing and physicaltherapy to assist with medicines, wound care, mobility and exacerbation of condition. Referrals to [facility] and [facility] cardiology completed. Wound consult: Treatment/Dressing Change Topicals/Ointments: None Cleanse With: Cleanser with Surfactant Dressing Types: ABD Pad, Adaptic (Contact Layer), Unna Boot, Skin Prep and Other (Adaptic ) Dressing Comment: L BKA Pressure Ulcer, cleansed with cleanser, patted dry skin prep applied to periwound area, 4x4 border foam dressing applied to wound area. Nutrition Education Reviewed Nutrition Education: Yes Note: Pt states that he is on a protein supplement. Understands that he needs to have adequate protein intake to help his wounds heal. Recomendation Recomendation:: R BKA Pressure Ulcer Remove old bandage Cleanse w/ wound cleanser Pat Dry Apply skin prep to periwound area, allow to dry Apply 4x4 border foam dressing to wound. Change Q2 weekly, PRN if soiled R Venous Ulcer Remove old dressings Cleanse wound w/ wound cleanser Pat dry with gauze apply adaptic contact layer to wound bed (once weekly) Cover wound w/ ABD Apply Unna Boot starting at base of toes Secure Zinc wrap with Coban Cover with nylon stocking. Change Tuesdays and Fridays, or PRN if soiled Recommendations for PCP follow-up: Consider pulmonology referral :CT findings suggestive of early fibrotic changes GDMT in the setting of HFrEF Follow-up:ascending thoracic aorta measures 4.4 x 4.1 cm/ mild nodularity of the liver with an enlarged left lobe suspicious for hepatic cirrhosis Urology referral please Discussed with Dr. Desai Recommendations for Follow Up Recommended tests to be ordered by follow up provider: VIVEK. GDMT progression in the setting of HFrEF, please f/u with cardiology referral. Needs a urology referral please. Home Meds and New Rx's Prescriptions: New cefpodoxime 100 mg tablet 100 mg PO BID Qty: 8 0RF Rx Instructions: must administer with a meal/food sacubitril-valsartan [Entresto] 24-26 mg tablet 0.5 tab PO BID Qty: 30 0RF Bio-K plus 50 billion cell capsule,delayed release(DR/EC) 1 cap PO DAILY Qty: 7 0RF Rx Instructions: Take 3 hours apart from antibiotics Continued magnesium oxide 400 mg (241.3 mg magnesium) tablet 800 mg PO DAILY aspirin 81 mg tablet,delayed release (DR/EC) 81 mg PO DAILY pantoprazole 40 mg tablet,delayed release (DR/EC) 40 mg PO DAILY ketoconazole 2 % cream 1 applic topical DAILY PRN Patient Comments: currently unable to use due to legs being wrapped. Jardiance 25 mg tablet 25 mg PO DAILY gentamicin 0.1 % cream 1 applic topical QID Qty: 30 0RF ropinirole 1 mg tablet 1 mg PO TID Qty: 270 3RF Rx Instructions: 1mg at noon, 2PM, and 6PM; along with 2mg RX ropinirole 2 mg tablet 2 mg PO .nightly Qty: 90 3RF Rx Instructions: along with 1mg Rx fluticasone propionate 50 mcg/actuation spray,suspension 1 spray intranasal DAILY PRN (Reason: nasal congestion) Rx Instructions: administer into each nostril furosemide 40 mg tablet 40 mg PO DAILY lidocaine 5 % ointment 1 applic topical QHS Patient Comments: currently unable to use due to legs being wrapped triamcinolone acetonide 0.1 % ointment 1 applic topical DAILY ezetimibe 10 mg tablet 10 mg PO DAILY fenofibrate nanocrystallized 145 mg tablet 145 mg PO DAILY (DME) AFO custom See Rx Instructions .Route .MEDSUPPLY Qty: 1 0RF Rx Instructions: As directed gabapentin 300 mg capsule 300 mg PO TID insulin lispro [Humalog KwikPen Insulin] 100 unit/mL insulin pen See Rx Instructions subcut .SLIDING SCALE Patient Comments: pt. reports taking 15 units Rx Instructions: subcutaneously SLIDING SCALE; 1u for each 15G of carbs, max 60u in 24 hours. cyanocobalamin (vitamin B-12) 1,000 mcg capsule 1,000 mcg PO DAILY cholecalciferol (vitamin D3) 50 mcg (2,000 unit) capsule 50 mcg PO DAILY ferrous sulfate [FeroSul] 325 mg (65 mg iron) tablet 325 mg PO DAILY Patient Comments: TAKE ONE TABLET BY MOUTH EVERY DAY metformin 500 mg tablet 500 mg PO BID Patient Comments: TAKE ONE TABLET BY MOUTH TWICE A DAY baclofen 5 mg tablet 5 mg PO HS Patient Comments: TAKE ONE TABLET BY MOUTH AT BEDTIME acetaminophen 500 mg tablet 1,000 mg PO TID PRN insulin glargine [Lantus Solostar U-100 Insulin] 100 unit/mL (3 mL) insulin pen 10 unit SUBCUT HS Patient Comments: INJECT 10 UNITS UNDER THE SKIN ONCE NIGHTLY Eliquis 5 mg tablet 5 mg PO BID Patient Comments: TAKE ONE TABLET BY MOUTH TWICE A DAY doxazosin [Cardura] 4 mg tablet 4 mg PO BID Qty: 0 0RF Changed polyethylene glycol 3350 [ClearLax] 17 gram/dose powder 17 g PO DAILY Qty: 0 0RF Discharge Instructions Stand Alone Forms: Nursing Discharge Form Referrals: Cameron Mcarthur MD [Primary Care Provider, Medicine] Referral Note: follow-up with PCP within 7 days of discharge please. Please call your PCP office, to make a follow up appointment. Delores Luna MD [ [facility] STAFF PHYSICIAN, Cardiology] Referral Note: Follow-up with cardiology referral within 7-10 days please. referral sent. Raeann Mcgill [ NON-[facility] STAFF PHYSICIAN, Wound Care] Referral Note: Referral sent for RLE non-healing wound Activity:: Activity as Tolerated Equipment/Supplies:: Walker Diet:: heart healthy diabetic Discharge Orders Discharge Orders: Discharge Order (Routine); Ordered 08/02/25 Ordered By: Annetta Downey DS: Summary Time Spent with Patient providing and/or coordinating discharge services: Greater than 30 minutes Status at Discharge Functional status at discharge: uses cane/walker Overall status at discharge: patient is progressing back to baseline Mental Status: mental status grossly normal Speech and Movement: speech and movement normal Mood: congruent mood Affect: normal affect Quality:SDOH Health Related Social Needs: Health related social needs details [facility] house Exam Psych Mental Status: mental status grossly normal Speech and Movement: speech and movement normal Mood: congruent mood Affect: normal affect DS: Data Vitals/I&O Vitals and I&O: Vital Signs Temperature 36.4 C L 08/02/25 08:15 Temperature Source Temporal Artery Scan 08/02/25 08:15 Pulse 80 08/02/25 08:15 Respiratory Rate 18 08/01/25 19:17 Respiratory Effort Normal 07/30/25 23:11 Respiratory Depth Deep 07/30/25 23:11 Respiratory Pattern Normal 07/30/25 23:11 Blood Pressure 119/59 L 08/02/25 08:15 Blood Pressure Mean 79 08/02/25 08:15 Blood Pressure Position Supine 07/30/25 20:12 Pulse Oximetry 95 08/02/25 08:15 Oxygen Delivery Method Room Air 08/02/25 08:15 Oxygen Flow Rate 0 08/02/25 08:15 Pain Level 0 07/31/25 08:12 Intake & Output 08/01/25 08/01/25 08/02/25 11:59 23:59 11:59 Intake Total 1000 / 2317.5 1317.5 / 2317.5 Output Total 4650 / 8225 3575 / 8225 2024 Balance -3650 / -5907.5 -2257.5 / -5907.5 -2024 Intake: IV 1000 / 7.5 1037.5 / 2037.5 Oral 280 / 280 Output: Urine 4650 / 8225 3575 / 8225 2024 Other: Urine Color Yellow Straw Yellow Urine Appearance Clear Cloudy Clear Mucous Threads Clots Urine Odor Strong Normal Comment Order to DC catheter pt complained about burning from barraza Stool Size Small Stool Characteristics Formed Brown Data Completed and Pending Labs on day of discharge: Labs from last 24 hours 08/02/25 05:58 WBC 3.87 L RBC 4.45 Hgb 11.5 L Hct 36.1 L MCV 81 MCH 25.8 L MCHC 31.9 L RDW 17.2 H Plt Count 124 L MPV 9.7 Immature Gran % 1.0 Neutrophils % 79.6 Lymphocytes % 2.8 Monocytes % 10.6 Eosinophils % 5.7 Basophils % 0.3 Nucleated RBC % 0.0 Absolute Neutrophils 3.08 Absolute Lymphocytes 0.11 L Absolute Monocytes 0.41 Absolute Eosinophils 0.22 Absolute Basophils 0.01 Sodium 135 L Potassium 4.2 Chloride 101 Carbon Dioxide 27.9 Anion Gap 6.1 BUN 34 H Creatinine 1.7 H Est GFR (CKD-EPI 2020) 39.75 Glucose 114 H Calcium 9.3 Magnesium 1.9 Total Bilirubin 0.6 AST 38 H ALT 26 Alkaline Phosphatase 96 Total Protein 6.8 Albumin 3.1 L Preliminary micro results at discharge 07/30/25 21:34 Blood Blood Culture - Preliminary NO GROWTH 48 HOURS 07/30/25 20:55 Blood Blood Culture - Preliminary NO GROWTH 48 HOURS PFSH All Active Problems (Updated 08/02/25 @ 16:00 by Annetta Downey APRN) Elevated brain natriuretic peptide (BNP) level (Acute) Constipation (Acute) At high risk for venous thromboembolism (Acute) Non-ST elevated myocardial infarction (Acute) Congestive heart failure (Chronic) Acute kidney injury (Acute) Urinary tract infection (Acute) Palliative care patient (Acute) History of cardioversion (Acute) 05/01/25 Unilateral below-knee amputation (Acute) Left Rotator cuff arthropathy of right shoulder (Acute) DEPO MEDROL 12/21/24 Ulcer of right lower extremity with fat layer exposed (Acute) Blister of right leg (Acute) Ulcer of left foot with necrosis of bone (Acute) CKD (chronic kidney disease), stage III (Acute) Transaminitis (Acute) Elevated CPK (Acute) Atherosclerosis of left lower extremity with ulceration (Acute) Diabetic foot infection (Acute) Atherosclerosis of artery of both lower extremities (Acute) Ulcer of left foot with fat layer exposed (Acute) Osteomyelitis of left foot (Chronic) Restless leg syndrome (Chronic) DVT (deep venous thrombosis) (Chronic) Venous ulcer-leg syndrome, bilateral (Acute) Onychogryphosis (Acute) Venous insufficiency of both lower extremities (Acute) Ulcer of right foot with fat layer exposed (Acute) Controlled type 2 diabetes mellitus with ulcer of toe (Acute) Atherosclerosis of [place] arteries of right leg with ulceration of ankle (Acute) Impacted cerumen, bilateral (Acute) Ulcer of extremity due to chronic venous insufficiency (Acute) Pneumonia (Acute) Nail dystrophy (Acute) Lumbar stenosis (Chronic) Carpal tunnel syndrome of left wrist (Acute) Bilateral hand numbness (Acute) Foot drop, bilateral (Acute) Left sided sciatica (Acute) Impairment of speech discrimination (Acute) Asymmetrical sensorineural hearing loss (Acute) Onychomycosis (Acute) DVT prophylaxis (Acute) Sepsis (Acute) Infection of total right knee replacement (Acute) S/p irrigation and debridement; poly exchange; arthrotomy repair DOS: 10/04/2021 Advance care planning (Acute) Acute on chronic renal failure (Acute) Bacteremia (Acute) Asymmetrical sensorineural hearing loss (Acute) History of total right knee replacement (Acute 01/16/21) First degree heart block (Acute) Cellulitis (Acute) History of total left knee replacement (TKR) (Acute 12/14/19) Dr. Wilson s/p debridement and poly exchange 02/10/20 Hypertension (Chronic) Tubular adenoma of colon (Acute 09/02/16) Tubulovillous adenoma polyp of colon (Chronic) Noted by colonoscopy. Chest pain, rule out acute myocardial infarction (Acute 11/01/13) Abnormal LFTs (Chronic) Secondary to fartty infiltrate of the liver. Diabetic renal disease (Chronic) Benign hypertension (Chronic) Obesity (Chronic) Benign prostatic hyperplasia (Chronic) Obstructive sleep apnea syndrome (Chronic) Nocturnal CPAP Hyperlipidemia (Chronic) Diabetes mellitus type 2 (Chronic) Since approximately 1997. On insulin thereapy. Last hemoglobin A1c 6.5% March 2013. 11-01-2013: Most recent hemoglobin A1c was 6.6 ? date. 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 to type 2 diabetes mellitus Type 2 diabetes mellitus treated with insulin Polypharmacy Pain in shoulder region Uses self-applied continuous glucose monitoring device Upper respiratory infection Cough Dysuria Pulmonary edema Burn of left index finger Peripheral vascular disease Burn of middle finger History of urinary system disease Constipation Diabetic neuropathy Renal insufficiency Low blood magnesium (11/01/13) Paresthesias Fatty infiltration of liver Erectile dysfunction Foot drop Unsteady gait History of removal of joint prosthesis of right knee due to infection Microalbuminuria Diabetic polyneuropathy Morbid obesity Sleep apnea BPH (benign prostatic hyperplasia) Myalgia Perennial allergic rhinitis Vertigo Palliative care patient Hearing loss Chronic lower back pain Osteoarthritis Venous insufficiency Sleep apnea with use of continuous positive airway pressure (CPAP) History of seizures as a child Hx of myocardial infarction 10/2011 STRESS TEST COMPLETED 11/29/2019 Hyperlipidemia CAD (coronary artery disease) Cellulitis RIGHT LOWER LEG Diabetes Arthritis Surgical History History of synovectomy Amputation toe Left 4th and 5th open ray amputation History of total left hip arthroplasty (07/29/23) Carpal tunnel syndrome of right wrist S/P ECTR: 10/28/2022 H/O total knee replacement left knee 12/14/2019, right knee 01/16/2021 History of tonsillectomy and adenoidectomy H/O heart artery stent X2 2014 colonoscopy (09/02/16) Family History Maternal Aunt Colon cancer Maternal Aunt Colon cancer Father , 70s Heart disease Mother Lung cancer Tetanus Brother Liver failure Alcohol use disorder Kidney disease Son , tractor accident Accident caused by farm tractor Social History Smoking/Tobacco Use Status: Never Smoking risk assessment performed?: Yes Alcohol Intake: never Drug use: Never Substance use type: does not use Housing: house Do you feel safe at home: Yes Do you feel safe in your relationship?: Yes Additional Social history: unable to assess to privately Time Spent with Patient Time Spent with Patient: >85 minutes Time was spent: preparing to see the patient(eg.review tests), obtaining and/or reviewing separately otained hiistory, ordering medications,tests, procedures, referring, communicating with other health women's health care nurse practitioner, indepentently interpreting results, counseling the patient, care coordination and other
[2025-08-02 11:39] VITALS: BP 130/75; PULSE 76; TEMP 36.4; O2SAT 96
[2025-08-02] MEDS: rOPINIRole 1 MG TAB PO ×2 (11:41→13:46)
--- NOTE | 2025-08-02 13:02 | WOUNDCONS_ITS ---
Date of service: 08/02/25 Time of Service: 13:02 Wound Initial Evaluation Narrative Narrative: Kurtis Alanis is an 80 year old gentel man who presented to the ER on July 30 following 2 days of difficulty urinating. HE endorsed chills, sweating and flank pain. Labs of note on admission include BUN: 50, Creatinine: 2.0, BNP: 4135. UA was suggestive of bacteriuria. Past medical HX significant for CKD, L BKA, Neuropathy, Type 2 diabetes, QUETA, CAD, atherosclerosis of artery of BLE, venous ulcer leg syndrome, venous insufficiency, foot drop, obesity.. PT has a new prosthetic for his L BKA. He is alert and oriented and agreed to this nurses assessment and photos of his wounds. Patient lives in a single family home with his daughter, he uses a walker and wheelchair for ambulation. Of note pt's BMI is 38.0 Wound Left amputation site : Wound Type: Pressure Ulcer Wound General Appearance: Unapproximated Wound Surrounding Tissue Appearance: Normal/Healthy Wound Length: 0.2 in Wound Width: 0.08 in Wound Depth: 0.04 in Wound Drainage Amount: None Wound Drainage Odor: None/Absent Right Mid Anterior Lateral Tib/Fib(lower leg): Wound Type: Stasis Ulcer Pressure Ulcer Stage: II Wound General Appearance: Unapproximated Wound Bed Greatest Portion: Red (Granulation) Wound Bed Lesser Portion: Yellow (Slough) Wound Surrounding Tissue Appearance: [place] Wound Drainage Amount: Moderate Wound Drainage Odor: None/Absent Wound Drainage Description: Sero Sanguineous Wound Debridement Method: Gauze and Mechanical Wound Debridement Result: Healthy Tissue Revealed Wound Debridement Amount of Tissue Removed: Minimal Circulation, Sensation, Motion Peripheral Pulse Strength: Weak Capillary Refill: Greater than 3 seconds Sensation Description: Numbness and Coldness Skin Temperature: Cool Skin Color: [place] Pain Pain Level: 0 Wound Summary Wound Summary: L BKA Stage 2 pressure injury Open oval shaped area measuring 0.5x0.2x0.1cm, no exudate/odor noted, periwound area WNL. R venous stasis ulcer large irregular shaped area, unapproximated. Wound bed is beefy red, 100% granulation tissue. No odor noted, moderate serous sanguineous exudate noted. Jessica-wound noted to be pink and shiny, temperature is WNL. Measures 9x9.5x0.1cm. Photo Photo: Treatment/Dressing Change Topicals/Ointments: None Cleanse With: Cleanser with Surfactant Dressing Types: ABD Pad, Adaptic (Contact Layer), Unna Boot, Skin Prep and Other (Adaptic ) Dressing Comment: L BKA Pressure Ulcer, cleansed with cleanser, patted dry skin prep applied to periwound area, 4x4 border foam dressing applied to wound area. Nutrition Education Reviewed Nutrition Education: Yes Note: Pt states that he is on a protein supplement. Understands that he needs to have adequate protein intake to help his wounds heal. Recomendation Recomendation:: R BKA Pressure Ulcer Remove old bandage Cleanse w/ wound cleanser Pat Dry Apply skin prep to periwound area, allow to dry Apply 4x4 border foam dressing to wound. Change Q2 weekly, PRN if soiled R Venous Ulcer Remove old dressings Cleanse wound w/ wound cleanser Pat dry with gauze apply adaptic contact layer to wound bed (once weekly) Cover wound w/ ABD Apply Unna Boot starting at base of toes Secure Zinc wrap with Coban Cover with nylon stocking. Change Tuesdays and Fridays, or PRN if soiled Physcian/Nurse Practioner Notified: Yes
[2025-08-02 13:45] VITALS: BP 132/64; PULSE 78; O2SAT 98
--- NOTE | 2025-08-02 14:19 | PHA.REVIEW2 ---
Pharmacy Admission Review Admission Clinical Review Admission Pharmacy Review: Elevated brain natriuretic peptide (BNP) level (Acute) Constipation (Acute) At high risk for venous thromboembolism (Acute) Urinary tract infection (Acute) Ulcer of right lower extremity with fat layer exposed (Acute) Acute on chronic renal failure (Acute) daptomycin Allergy (Unknown, Unverified 07/30/25 20:08) myalgias amlodipine besylate (From Norvasc) Adverse Reaction (Mild, Verified 07/30/25 20:08) edema enalapril maleate (From Vasotec) Adverse Reaction (Mild, Verified 07/30/25 20:08) cough enalaprilat dihydrate (From Vasotec) Adverse Reaction (Mild, Verified 07/30/25 20:08) cough pravastatin sodium (From Pravachol) Adverse Reaction (Mild, Verified 07/30/25 20:08) myalgia from Lipitor rosuvastatin (From Crestor) Adverse Reaction (Mild, Verified 07/30/25 20:08) Myalgia Resuscitation Status Full Code Height 5 ft 8 in Weight 113.398 kg Pharmacy Admission Review Renal Dosing Renal Dosing: BUN 34 mg/dL (7-18) H 08/02/25 05:58 Creatinine 1.7 mg/dL (0.70-1.30) H 08/02/25 05:58 Medications needing adjustments: Reviewed (CrCl 40.94 mL/min, BUN decreased from 39) List of meds needing interventions: Current medications are okay Anticoagulation Anticoagulation: Hgb 11.5 g/dL (13.5-17.5) L 08/02/25 05:58 Hct 36.1 % (40.0-50.0) L 08/02/25 05:58 Plt Count 124 10^3/uL (130-400) L 08/02/25 05:58 Creatinine 1.7 mg/dL (0.70-1.30) H 08/02/25 05:58 DVT Prophylaxis: Reviewed Medications: Apixaban (5mg BID) Relevant Labs Relevant Labs: Sodium 135 mmol/L (136-145) L 08/02/25 05:58 Potassium 4.2 mmol/L (3.5-5.1) 08/02/25 05:58 Chloride 101 mmol/L (98-107) 08/02/25 05:58 Magnesium 1.9 mg/dL (1.8-2.4) 08/02/25 05:58 Electrolytes, C-Reactive P, ESR: Reviewed DM Control DM Control: Glucose 114 mg/dL (74-106) H 08/02/25 05:58 Finger Stick Blood Glucose 119 1147 Finger Stick Blood Glucose 119 1147 Finger Stick Blood Glucose 202 0820 Finger Stick Blood Glucose 202 0820 DM Control: Reviewed Insulin Dosing, Diabetic Medication: Has order for Jardiance 25mg daily, SS insulin and glargine 10 units at bedtime. Cardiac Review Cardiac Review: Troponin I 201 ng/L (<or=76) H* 07/31/25 06:43 NT-Pro-B Natriuret Pep 4135 pg/mL (<300) H 07/30/25 20:23 BP, HR, EF%: Reviewed (HR and BP WNL) List meds needing interventions: Has orders for Entresto 0.5 tab BID and furosemide 40mg daily QTc Review QTc: Reviewed (440 from 07/30/25) IV to PO Switch IV Medications: Reviewed (ceftriaxone) Home Meds Home Med List reviewed: Intervened Relevent Home Meds Not ordered & why?: metformin (on hold per H+P), vitamin D3, Ferosul, gentamicin cream, ketoconazole cream (PRN), lidocaine ointment and magnesium Recently filled Eliquis but not on home med list. Asked nurse to check with patient. Per nurse patient does take at home, added to home med list and informed provider. Provider changed patient from enoxaparin to home does Eliquis. Asked nurse to verify with patient how they take doxazosin at home. On home med list says 4mg BID but prescription says 4mg at bedtime. Patient unsure how they take at home, reached out to provider as this medication is usually only dosed once daily. Provider changed order from BID to qHS. I updated home med list. Current Meds Current Medication Order Review: Intervened Comments: Added IV access order Pharmacy Antibiotic Review Relevant Labs: WBC 3.87 10^3/uL (4.4-10.8) L 08/02/25 05:58 Temperature 36.4 C Temperature 36.4 C Microbiology 07/30/25 20:50 Urine Culture - Final Urine - Reflex from Ua Serratia marcescens 07/30/25 21:34 Blood Culture - Preliminary Blood NO GROWTH 48 HOURS 07/30/25 20:55 Blood Culture - Preliminary Blood NO GROWTH 48 HOURS Organism 1 Serratia marcescens COLONY COUNT >100,000 COLONIES/ML Serr cherie Result Cefazolin R Ceftazidime S Ceftriaxone S Ciprofloxacin S Gentamicin S Nitrofurantoin R Levofloxacin S Tobramycin S Trimethoprim/Sulfamethoxazole S Pharmacy Antibiotic Activity: C/S review and Reviewed, no change Comments: Patient is on ceftriaxone, day 3, for UTI. WBC slight increased from 3.35
[2025-08-02] MEDS: cefTRIAXone 2 GM/50 ML BAG IVPB (15:43)
--- NOTE | 2025-08-02 16:27 | CMDISCH_ITS ---
Date of service: 08/02/25 Time of Service: 16:27 LACE Index Scoring Tool Questions: Length of Stay (in days): 3 Was the patient admitted via the E.D.?: Yes Comorbidities: Previous M.I., PVD, Diabetes w/o Complication, Congestive Heart Failure, Chronic Pulmonary Disease and Liver or Renal Disease E.D. Visits: 1 Answers: Total Score: 12 Risk of Readmission: High Risk Care Management Discharge Plan Reason for Hospitalization: HANNAH Discharge Plan: Kurtis will be discharged home with a resumption of home health services for PT and RN. He will follow up with his PCP and plan of care and transport with family. A referral was sent to [facility] [place] this afternoon. They will contact Kurtis directly to schedule an appointment. Patient/Family Education Needs: Review of discharge instructions, limitations, follow up plan and discuss Ask Me Three Services Needed at Discharge: Home Health Care Services SDOH Health Related Social Needs: Health related social needs details [facility]
--- NOTE | 2025-08-02 16:53 | PDOC.HHF2F ---
Home Health Referral Home Health Orders Clinical synopsis of why skilled professionals are needed: This 80 year old patient with a past medical history significant for urinary retention, nephrolithiasis, HFrEF with LVEF 40%, CKD, L BKA, chronic right LE wound, DM on insulin, HLD, restless legs, hypomagnesemia, GERD, chronic pain with cervical/thoracic myelopathy, diabetic neuropathy, bilateral hand numbness, QUETA, CAD with stent man presented in the ED on July 30 with 2 days of difficulty urinating with subjective fevers chills, sweating and flank pain. Work-up was positive stable mild anemia, UTI as per UA , HANNAH on CKD, hypomagnesemia. Treatment initiated with indwelling urinary catheter, ceftriaxone and IVF in the ED. Imaging was neagtive for hydronephrosis, nephrolithiasis but showed mild bladder wall thickening with mild infiltration in the surrounding soft tissues. EKG NSR with troponin at 119 then 127 w/o ACS symptoms with BNP at 4135. The patient was admitted by the hospitalist to the medical surgical floor observation for HANNAH and likely UTI. Doxazosin dose increased. The patient was subsequently able to void w/o further urinary retention s/p discontinuation of Last catheter. Wound consult: Echocardiogram completed with preliminary findings pointing to reduced LVEF; official report pending. GDMT initiated with low dose Entresto which was well tolerated. Urine culture grew Serratia marcescens and the patient will be discharged home on oral cefpodoxime. The patient will benefit form home health nursing and physicaltherapy to assist with medicines, wound care, mobility and exacerbation of condition. [place] to [facility] [place] and [facility] cardiology completed. Wound consult: Treatment/Dressing Change Topicals/Ointments: None Cleanse With: Cleanser with Surfactant Dressing Types: ABD Pad, Adaptic (Contact Layer), Unna Boot, Skin Prep and Other (Adaptic ) Dressing Comment: L BKA Pressure Ulcer, cleansed with cleanser, patted dry skin prep applied to periwound area, 4x4 border foam dressing applied to wound area. Nutrition Education Reviewed Nutrition Education: Yes Note: Pt states that he is on a protein supplement. Understands that he needs to have adequate protein intake to help his wounds heal. Recomendation Recomendation:: R BKA Pressure Ulcer Remove old bandage Cleanse w/ wound cleanser Pat Dry Apply skin prep to periwound area, allow to dry Apply 4x4 border foam dressing to wound. Change Q2 weekly, PRN if soiled DISCHARGE SUMMARY PATIENT NAME: Kurtis Alanis UNIT #: [id number] ADMITTING PROVIDER: Annetta Downey APRN PRIMARY CARE PROVIDER: ROBBIE YAÑEZ MD DATE OF ADMIT: 07/30/25 : 1945 DISCHARGE DATE: Date of service: 08/02/25 Time of Service: 16:20 DS: Diagnosis Discharge Diagnosis (1) Acute on chronic renal failure: Status: Acute (2) Urinary tract infection: Status: Acute (3) Diabetes mellitus type 2: Status: Chronic (4) Ulcer of right lower extremity with fat layer exposed: Status: Acute (5) Lumbar stenosis: Status: Chronic (6) Obstructive sleep apnea syndrome: Status: Chronic (7) Restless leg syndrome: Status: Chronic (8) Hyperlipidemia: (9) At high risk for venous thromboembolism: Status: Acute (10) Constipation: Status: Acute (11) Elevated brain natriuretic peptide (BNP) level: Status: Acute Discharge Plan Disposition Patient Disposition: Home W/Home Health Services Condition: Improving Discharge Details Reason For Visit: HANNAH Admit Date/Time: 07/30/25 22:17 Admit Provider: Gibson Adan Attending Provider: Gibson Adan Primary Care Provider: Robbie Yañez meghann Hospital Course Hospital Course: This 80 year old patient with a past medical history significant for urinary retention, nephrolithiasis, HFrEF with LVEF 40%, CKD, L BKA, chronic right LE wound, DM on insulin, HLD, restless legs, hypomagnesemia, GERD, chronic pain with cervical/thoracic myelopathy, diabetic neuropathy, bilateral hand numbness, QUETA, CAD with stent man presented in the ED on July 30 with 2 days of difficulty urinating with subjective fevers chills, sweating and flank pain. Work-up was positive stable mild anemia, UTI as per UA , HANNAH on CKD, hypomagnesemia. Treatment initiated with indwelling urinary catheter, ceftriaxone and IVF in the ED. Imaging was neagtive for hydronephrosis, nephrolithiasis but showed mild bladder wall thickening with mild infiltration in the surrounding soft tissues. EKG NSR with troponin at 119 then 127 w/o ACS symptoms with BNP at 4135. The patient was admitted by the hospitalist to the medical surgical floor observation for HANNAH and likely UTI. Doxazosin dose increased. The patient was subsequently able to void w/o further urinary retention s/p discontinuation of Last catheter. Wound consult: Echocardiogram completed with preliminary findings pointing to reduced LVEF; official report pending. GDMT initiated with low dose Entresto which was well tolerated. Urine culture grew Serratia marcescens and the patient will be discharged home on oral cefpodoxime. The patient will benefit form home health nursing and physicaltherapy to assist with medicines, wound care, mobility and exacerbation of condition. Referrals to [facility] [place] and [facility] cardiology completed. Wound consult: Treatment/Dressing Change Topicals/Ointments: None Cleanse With: Cleanser with Surfactant Dressing Types: ABD Pad, Adaptic (Contact Layer), Unna Boot, Skin Prep and Other (Adaptic ) Dressing Comment: L BKA Pressure Ulcer, cleansed with cleanser, patted dry skin prep applied to periwound area, 4x4 border foam dressing applied to wound area. Nutrition Education Reviewed Nutrition Education: Yes Note: Pt states that he is on a protein supplement. Understands that he needs to have adequate protein intake to help his wounds heal. Recomendation Recomendation:: R BKA Pressure Ulcer Remove old bandage Cleanse w/ wound cleanser Pat Dry Apply skin prep to periwound area, allow to dry Apply 4x4 border foam dressing to wound. Change Q2 weekly, PRN if soiled R Venous Ulcer Remove old dressings Cleanse wound w/ wound cleanser Pat dry with gauze apply adaptic contact layer to wound bed (once weekly) Cover wound w/ ABD Apply Unna Boot starting at base of toes Secure Zinc wrap with Coban Cover with nylon stocking. Change Tuesdays and Fridays, or PRN if soiled Recommendations for PCP follow-up: Consider pulmonology referral :CT findings suggestive of early fibrotic changes GDMT in the setting of HFrEF Follow-up:ascending thoracic aorta measures 4.4 x 4.1 cm/ mild nodularity of the liver with an enlarged left lobe suspicious for hepatic cirrhosis Urology referral please Discussed with Dr. Desai Recommendations for Follow Up Recommended tests to be ordered by follow up provider: VIVEK. GDMT progression in the setting of HFrEF, please f/u with cardiology referral. Needs a urology referral please. Registered Nurse: Check all that apply Instruct on new or changed medication(s)/assess compliance: Ordered Assess for exacerbation of medical condition, instruct patient/caregivers on signs and symptoms to report for early detection: Ordered Physical Therapist: Check all that apply Increase strength & endurance for safe mobility at home: Ordered To design/establish home maintenance program: Ordered Fall reduction therapy program for patient with history of frequent falls: Ordered Home safety evaluation and teaching/gait training including stair management (if applicable): Ordered Occupational Therapist: Evaluate and treat for patient unable to perform ADL/IADL/self-care: Ordered Rubber And Pounder: Other: Complex care coordination Home Bound Status Requires the aid of supportive device (check all that apply): Walker and Other (non-weight bearing ) Describe why leaving home would require a considerable and taxing effort: Requires frequent rest periods Encounter Date and Reason: I certify that a FTF encounter for this patient was performed on August 02, 2025 and that such encounter was related to the primary reason the patient requires home health services. The encounter was conducted in the following manner: By me as the certifying physician, BUSINESS SERVICES ANALYST, PA or By an inpatient physician, BUSINESS SERVICES ANALYST or PA during an inpatient stay who communicated findings to me, Certification And Authentication I certify that I composed the above information based on my clinical judgment relating to this patient's medical condition and, if applicable, clinical findings communicated to me by the NPP or inpatient physician who performed the FTF encounter. Name of Provider that will be monitoring home health services: Robbie Yañez
[2025-08-02 16:56] LABS: Troponin I 75 ng/L (<or=76)
--- NOTE | 2025-08-03 16:37 | W.NUTRFU ---
Date of service: 08/02/25 Time of Service: 12:00 Nutrition Note NOTE: received nutrition consult regarding diabetes ed. was able to visit with patient briefly prior to discharge. last documented A1C <6 and pt states most recently still <7. [place] at home. Fasting glucose during admission <140 . he and swap out cooking and meal prepping. Feels he knows how his glucose responds to food choices and declines further education at this time. Gave my card to contact if he has needs after discharge in regards to glucose / wt mgt Time Spent in Nutritional Counseling and Treatment: 10 min
== END 2025-08-02 17:49 | disposition home health service (06) ==
LOC: ER 22:17 → MS 22:39
PROVIDERS: Admitting Provider Family Medicine; Emergency Provider Physician Assistant; PCP Family Medicine; Responsible Provider Nurse Practitioner Acute Care; Visit Provider Family Medicine
DX: N17.9 Acute kidney failure, unspecified (principal); N39.0 Urinary tract infection, site not specified; G47.33 Obstructive sleep apnea (adult) (pediatric); G25.81 Restless legs syndrome; M48.061 Spinal stenosis, lumbar region without neurogenic claudication; E78.5 Hyperlipidemia, unspecified; K59.00 Constipation, unspecified; Z79.4 Long term (current) use of insulin; Z89.512 Acquired absence of left leg below knee; K76.9 Liver disease, unspecified; Z79.899 Other long term (current) drug therapy; I25.10 Atherosclerotic heart disease of native coronary artery without angina pectoris; Z86.718 Personal history of other venous thrombosis and embolism; I13.0 Hypertensive heart and chronic kidney disease with heart failure and stage 1 through stage 4 chronic kidney disease, or unspecified chronic kidney disease; N18.30 Chronic kidney disease, stage 3 unspecified; E11.621 Type 2 diabetes mellitus with foot ulcer; L97.422 Non-pressure chronic ulcer of left heel and midfoot with fat layer exposed; E11.22 Type 2 diabetes mellitus with diabetic chronic kidney disease; E11.51 Type 2 diabetes mellitus with diabetic peripheral angiopathy without gangrene; L97.412 Non-pressure chronic ulcer of right heel and midfoot with fat layer exposed; I70.244 Atherosclerosis of native arteries of left leg with ulceration of heel and midfoot; E11.42 Type 2 diabetes mellitus with diabetic polyneuropathy; Z95.5 Presence of coronary angioplasty implant and graft; I25.2 Old myocardial infarction; E83.42 Hypomagnesemia; B96.89 Other specified bacterial agents as the cause of diseases classified elsewhere; T87.89 Other complications of amputation stump; I50.20 Unspecified systolic (congestive) heart failure; L89.892 Pressure ulcer of other site, stage 2; I83.018 Varicose veins of right lower extremity with ulcer other part of lower leg; L97.812 Non-pressure chronic ulcer of other part of right lower leg with fat layer exposed
CPT/HCPCS: 00123; 36415; 36416; 74177; 80053; 82550; 82962; 83690; 87040; 87077; 93005; 96361; 96365; 96366; 96372; 99285; J1650; 71260; 81003; 81015; 83605; 83735; 83880; 84484; 85025; 87086; 87186; 93010; 93306; 99222; 99232; 99239; G0378; J0696; J1815; J3490

== ENCOUNTER 2025-10-17 14:51 | Outpatient (REF) | payer MEDICARE, SELFPAY ==
[2025-10-17 15:58] LABS: Abs Immature Grans 0.02 10^3/uL (0.0-0.06); HCT 41.2 % (40.0-50.0); HGB 12.9 g/dL (13.5-17.5); Immature Grans % 0.4 %; MCH 27.5 pg (27.0-33.0); MCHC 31.3 % (32.0-36.0); MCV 88 fL (80-95); MPV 10.0 fL (8.0-11.0); Platelet Count 150 10^3/uL (130-400); RBC 4.69 10^6/uL (4.36-5.78); RDW 15.4 % (11.8-14.1); RDW-SD 49.1 fL; WBC 5.01 10^3/uL (4.4-10.8)
[2025-10-17 16:31] LABS: Albumin 4.6 g/dL (3.4-5.0); Anion Gap 9.3 mmol/L (3-11); BUN 52 mg/dL (9-23); CO2 29.7 mmol/L (20.0-31.0); Calcium 9.7 mg/dL (8.3-10.6); Chloride 103 mmol/L (98-107); Ferritin 95 ng/mL (11-307); Glucose 108 mg/dL (74-106); Glucose Negative (Negative); Iron 50 ug/dL (65-175); Potassium 5.7 mmol/L (3.5-5.1); Sodium 142 mmol/L (136-145); Total Iron Binding Capacity 352 ug/dL (250-425); Transferrin Sat 14 % (20-55); Vitamin D 25 Total 36 ng/mL (30-100)
[2025-10-17 16:42] LABS: C & S Indicated? No; RBC 0-2 HPF (0-2); WBC Negative HPF (0-5)
[2025-10-17 16:56] LABS: Prot/Crea Ur Ratio 0.67 mg/mg Cr
== END 2025-10-17 14:52 | disposition home or self-care (01) ==
LOC: LBN 14:51
PROVIDERS: PCP Family Medicine; Visit Provider Nurse Practitioner
DX: N18.32 Chronic kidney disease, stage 3b (principal)
CPT/HCPCS: 80048; 82306; 81003; 81015; 82040; 82565; 82728; 83540; 83550; 83970; 84100; 84156; 85025

== ENCOUNTER 2025-11-22 15:18 | Outpatient (REF) | payer MEDICARE, SELFPAY | END 2025-11-22 15:19 | disposition home or self-care (01) | LOC: NCHCN 15:18 | PROVIDERS: PCP Family Medicine; Visit Provider Family Medicine | DX: N39.0 Urinary tract infection, site not specified (principal) | CPT/HCPCS: 87077; 87086; 87186 ==